=== PATIENT | female | born 1960 | race African-American/Black ===

== ENCOUNTER 2020-07-11 20:29 | Inpatient (IN) | payer OTHER, SELFPAY ==
--- NOTE | 2020-07-11 20:53 | Emergency Department Report ---
ED Altered Mental Status HPI - General Chief Complaint: Altered Mental Status Stated Complaint: DEHYDRATION/POSS KIDNEY INFECTION PUI?: No Time Seen by Provider: 07/11/20 20:46 Source: EMS Mode of arrival: Stretcher Limitations: Altered Mental Status, Physical Limitation - History of Present Illness Initial Comments: Patient is a 60-year-old female that presents emergency room for evaluation for UTI, decreased responsiveness, dehydration. Patient was transferred from a local psychiatric hospital, [facility]. Patient's sitter is at bedside. Patient sitter states that the patient is a little less responsive and is eating less than normal. Patient's sitter states that today she only ate 25% of her meals. Sitter states that the patient possibly has a UTI or dehydration. Sitter states that the patient's vital signs have been stable except for tachycardia at 101-106,, afebrile with a normal temp, blood pressure 148/96, blood sugar 132.. Sitter states that the patient's urine output has decreased. Paperwork accompanied the patient from [facility]. Paperwork and chart reviewed. It appears that on 07/09/2020, the patient was talking and answering questions in Ivor[place]. MD Complaint: altered mental status, confusion, decreased responsiveness -: Gradual Severity: severe Consistency of Symptoms: getting worse - Related Data Allergies Allergy/AdvReac Type Severity Reaction Status Date / Time Unable to Assess Allergy Unverified 07/11/20 21:47 ED Review of Systems ROS: Stated complaint: DEHYDRATION/POSS KIDNEY INFECTION Other details as noted in HPI Comment: Unobtainable due to pts medical conditions ED Past Medical Hx - Past Medical History Previous Medical History?: Yes Hx CVA: Yes Hx Psychiatric Treatment: Yes Additional medical history: A. fib, - Surgical History Past Surgical History?: No - Family History Family history: no significant - Social History Smoking Status: Unknown if ever smoked Substance Use Type: None ED Physical Exam - General Limitations: Altered Mental Status, Physical Limitation General appearance: alert, in no apparent distress - Head Head exam: Present: atraumatic, normocephalic - Eye Eye exam: Present: normal appearance - ENT ENT exam: Present: mucous membranes moist - Neck Neck exam: Present: normal inspection - Respiratory Respiratory exam: Present: normal lung sounds bilaterally. Absent: respiratory distress - Cardiovascular Cardiovascular Exam: Present: regular rate, normal rhythm. Absent: systolic murmur, diastolic murmur, rubs, gallop - GI/Abdominal GI/Abdominal exam: Present: soft, normal bowel sounds - Extremities Exam Extremities exam: Present: normal inspection - Back Exam Back exam: Present: normal inspection - Neurological Exam Neurological exam: Present: alert, altered - Skin Skin exam: Present: warm, dry, intact, normal color. Absent: rash - Assessment Assessment Interval: Baseline - Level of Consciousness 1a. Level of Consciousness: resp stimuli/obtunded - LOC Questions 1b. LOC Questions: aphasic - LOC Command 1c. LOC Commands: performs tasks correctly - Best Gaze 2. Best Gaze: normal - Visual 3. Visual: no visual loss - Facial Palsy 4. Facial Palsy: normal symmetrical movement - Motor Arm 5a. Motor Arm Left: no movement 5b. Motor Arm Right: no movement - Motor Leg 6a. Motor Leg Left: some gravity effort 6b. Motor Leg Right: some gravity effort - Limb Ataxia 7. Limb Ataxia: absent - Sensory 8. Sensory: mild/moderate sensory loss - Best Language 9. Best Language: mute/global aphasia - Dysarthria 10. Dysarthria: mute/anarrthric - Extinction and Inattention 11. Extinction/Inattention: no abnormality - Scoring Total Score: 22 Stroke Severity: Severe Stroke ED Course - Reevaluation(s) Reevaluation #1: Patient is currently oriented x1. Patient is becoming more verbal. Patient is receiving fluids. 07/11/20 21:12 Reevaluation #2: Patient answering more questions. Patient's vital signs are stable. Patient is afebrile. 07/11/20 22:35 Reevaluation #3: Sitter is at bedside. I discussed all results with patient and sitter. I discussed plan of care with patient and sitter. Patient to be admitted to the hospitalist service. 07/11/20 22:50 - Consultations Consultation #1: Hospitalist consulted for admission. Hospitalist to admit patient. 07/11/20 22:50 - Lab Data Result diagrams: 07/11/20 21:17 07/11/20 21:17 Lab Results 07/11/20 07/11/20 07/11/20 Range/Units 21:17 21:17 21:17 WBC 11.7 H (4.5-11.0) K/mm3 RBC 4.17 (3.65-5.03) M/mm3 Hgb 14.4 H (10.1-14.3) gm/dl Hct 40.1 (30.3-42.9) % MCV 96 (79-97) fl MCH 35 H (28-32) pg MCHC 36 H (30-34) % RDW 13.4 (13.2-15.2) % Plt Count 255 (140-440) K/mm3 Lymph % (Auto) 21.6 (13.4-35.0) % [place] % (Auto) 5.7 (0.0-7.3) % Eos % (Auto) 0.3 (0.0-4.3) % Baso % (Auto) 0.3 (0.0-1.8) % Lymph # 2.5 (1.2-5.4) K/mm3 [place] # 0.7 (0.0-0.8) K/mm3 Eos # 0.0 (0.0-0.4) K/mm3 Baso # 0.0 (0.0-0.1) K/mm3 Seg Neutrophils % 72.1 H (40.0-70.0) % Seg Neutrophils # 8.5 H (1.8-7.7) K/mm3 Sodium 142 (137-145) mmol/L Potassium 3.5 L (3.6-5.0) mmol/L Chloride 100.9 (98-107) mmol/L Carbon Dioxide 27 (22-30) mmol/L Anion Gap 18 mmol/L BUN 20 H (7-17) mg/dL Creatinine 0.5 L (0.6-1.2) mg/dL Estimated GFR > 60 ml/min BUN/Creatinine Ratio 40 % Glucose 122 H (65-100) mg/dL Lactic Acid 1.40 (0.7-2.0) mmol/L Calcium 9.5 (8.4-10.2) mg/dL Total Bilirubin 0.70 (0.1-1.2) mg/dL AST 86 H (5-40) units/L ALT 68 H (7-56) units/L Alkaline Phosphatase 60 (35-129) units/L Ammonia (25-60) umol/L Total Creatine Kinase 1998 H (30-135) units/L Troponin T < 0.010 (0.00-0.029) ng/mL Total Protein 7.2 (6.3-8.2) g/dL Albumin 4.1 (3.9-5) g/dL Albumin/Globulin Ratio 1.3 % Urine Color (Yellow) Urine Turbidity (Clear) Urine pH (5.0-7.0) Ur Specific [place] (1.003-1.030) Urine Protein (Negative) mg/dL Urine Glucose (UA) (Negative) mg/dL Urine Ketones (Negative) mg/dL Urine Blood (Negative) Urine Nitrite (Negative) Urine Bilirubin (Negative) Urine Urobilinogen (<2.0) mg/dL Ur Leukocyte Esterase (Negative) Urine WBC (Auto) (0.0-6.0) /HPF Urine RBC (Auto) (0.0-6.0) /HPF U Epithel Cells (Auto) (0-13.0) /HPF Urine Mucus /HPF Salicylates (2.8-20.0) mg/dL Urine Opiates Screen Urine Methadone Screen Acetaminophen (10.0-30.0) ug/mL Ur Barbiturates Screen Ur Phencyclidine Scrn Ur Amphetamines Screen U Benzodiazepines Scrn Urine Cocaine Screen U Marijuana (THC) Screen Drugs of Abuse Note 07/11/20 07/11/20 07/11/20 Range/Units 21:17 21:17 21:17 WBC (4.5-11.0) K/mm3 RBC (3.65-5.03) M/mm3 Hgb (10.1-14.3) gm/dl Hct (30.3-42.9) % MCV (79-97) fl MCH (28-32) pg MCHC (30-34) % RDW (13.2-15.2) % Plt Count (140-440) K/mm3 Lymph % (Auto) (13.4-35.0) % [place] % (Auto) (0.0-7.3) % Eos % (Auto) (0.0-4.3) % Baso % (Auto) (0.0-1.8) % Lymph # (1.2-5.4) K/mm3 [place] # (0.0-0.8) K/mm3 Eos # (0.0-0.4) K/mm3 Baso # (0.0-0.1) K/mm3 Seg Neutrophils % (40.0-70.0) % Seg Neutrophils # (1.8-7.7) K/mm3 Sodium (137-145) mmol/L Potassium (3.6-5.0) mmol/L Chloride (98-107) mmol/L Carbon Dioxide (22-30) mmol/L Anion Gap mmol/L BUN (7-17) mg/dL Creatinine (0.6-1.2) mg/dL Estimated GFR ml/min BUN/Creatinine Ratio % Glucose (65-100) mg/dL Lactic Acid (0.7-2.0) mmol/L Calcium (8.4-10.2) mg/dL Total Bilirubin (0.1-1.2) mg/dL AST (5-40) units/L ALT (7-56) units/L Alkaline Phosphatase (35-129) units/L Ammonia 28.0 (25-60) umol/L Total Creatine Kinase (30-135) units/L Troponin T (0.00-0.029) ng/mL Total Protein (6.3-8.2) g/dL Albumin (3.9-5) g/dL Albumin/Globulin Ratio % Urine Color (Yellow) Urine Turbidity (Clear) Urine pH (5.0-7.0) Ur Specific [place] (1.003-1.030) Urine Protein (Negative) mg/dL Urine Glucose (UA) (Negative) mg/dL Urine Ketones (Negative) mg/dL Urine Blood (Negative) Urine Nitrite (Negative) Urine Bilirubin (Negative) Urine Urobilinogen (<2.0) mg/dL Ur Leukocyte Esterase (Negative) Urine WBC (Auto) (0.0-6.0) /HPF Urine RBC (Auto) (0.0-6.0) /HPF U Epithel Cells (Auto) (0-13.0) /HPF Urine Mucus /HPF Salicylates < 0.3 L (2.8-20.0) mg/dL Urine Opiates Screen Urine Methadone Screen Acetaminophen 5.0 L (10.0-30.0) ug/mL Ur Barbiturates Screen Ur Phencyclidine Scrn Ur Amphetamines Screen U Benzodiazepines Scrn Urine Cocaine Screen U Marijuana (THC) Screen Drugs of Abuse Note 07/11/20 07/11/20 Range/Units Unknown Unknown WBC (4.5-11.0) K/mm3 RBC (3.65-5.03) M/mm3 Hgb (10.1-14.3) gm/dl Hct (30.3-42.9) % MCV (79-97) fl MCH (28-32) pg MCHC (30-34) % RDW (13.2-15.2) % Plt Count (140-440) K/mm3 Lymph % (Auto) (13.4-35.0) % [place] % (Auto) (0.0-7.3) % Eos % (Auto) (0.0-4.3) % Baso % (Auto) (0.0-1.8) % Lymph # (1.2-5.4) K/mm3 [place] # (0.0-0.8) K/mm3 Eos # (0.0-0.4) K/mm3 Baso # (0.0-0.1) K/mm3 Seg Neutrophils % (40.0-70.0) % Seg Neutrophils # (1.8-7.7) K/mm3 Sodium (137-145) mmol/L Potassium (3.6-5.0) mmol/L Chloride (98-107) mmol/L Carbon Dioxide (22-30) mmol/L Anion Gap mmol/L BUN (7-17) mg/dL Creatinine (0.6-1.2) mg/dL Estimated GFR ml/min BUN/Creatinine Ratio % Glucose (65-100) mg/dL Lactic Acid (0.7-2.0) mmol/L Calcium (8.4-10.2) mg/dL Total Bilirubin (0.1-1.2) mg/dL AST (5-40) units/L ALT (7-56) units/L Alkaline Phosphatase (35-129) units/L Ammonia (25-60) umol/L Total Creatine Kinase (30-135) units/L Troponin T (0.00-0.029) ng/mL Total Protein (6.3-8.2) g/dL Albumin (3.9-5) g/dL Albumin/Globulin Ratio % Urine Color Yellow (Yellow) Urine Turbidity Clear (Clear) Urine pH 6.0 (5.0-7.0) Ur Specific [place] 1.023 (1.003-1.030) Urine Protein 30 mg/dl (Negative) mg/dL Urine Glucose (UA) Neg (Negative) mg/dL Urine Ketones Tr (Negative) mg/dL Urine Blood Neg (Negative) Urine Nitrite Neg (Negative) Urine Bilirubin Neg (Negative) Urine Urobilinogen 2.0 (<2.0) mg/dL Ur Leukocyte Esterase Neg (Negative) Urine WBC (Auto) 2.0 (0.0-6.0) /HPF Urine RBC (Auto) 3.0 (0.0-6.0) /HPF U Epithel Cells (Auto) 3.0 (0-13.0) /HPF Urine Mucus 3+ /HPF Salicylates (2.8-20.0) mg/dL Urine Opiates Screen Presumptive negative Urine Methadone Screen Presumptive negative Acetaminophen (10.0-30.0) ug/mL Ur Barbiturates Screen Presumptive negative Ur Phencyclidine Scrn Presumptive negative Ur Amphetamines Screen Presumptive negative U Benzodiazepines Scrn Presumptive negative Urine Cocaine Screen Presumptive negative U Marijuana (THC) Screen Presumptive negative Drugs of Abuse Note Disclamer - EKG Data -: EKG Interpreted by In EKG shows normal: sinus rhythm, axis, intervals, QRS complexes, ST-T waves Rate: normal - Radiology Data Radiology results: report reviewed, image reviewed interpreted by me: Chest x-ray: No acute findings, no pneumonia, no pneumothorax, no foreign body, no osseous findings. CHEST 1 VIEW 07/11/2020 8:29 PM INDICATION / CLINICAL INFORMATION: Altered Mental Status. COMPARISON: None available. FINDINGS: SUPPORT DEVICES: None. HEART / MEDIASTINUM: No significant abnormality. LUNGS / PLEURA: No significant pulmonary or pleural abnormality. 7 mm calcified granuloma in the right midlung. No pneumothorax. ADDITIONAL FINDINGS: No significant additional findings. IMPRESSION: No acute cardiopulmonary abnormality. NONENHANCED CT SCAN OF THE HEAD: INDICATION / CLINICAL INFORMATION: 60 years Female; Altered Mental Status. TECHNIQUE: Routine CT head without contrast. All CT scans at this location are performed using CT dose reduction for ALARA by means of automated exposure control. COMPARISON: None. FINDINGS: BRAIN / INTRACRANIAL CONTENTS: No acute hemorrhage, mass effect, midline shift, hydrocephalus, or acute, large territorial infarct. No chronic infarct or focal atrophy. Normal brain volume and ventricular/sulcal size for age. No significant white matter abnormality. CRANIOCERVICAL JUNCTION: No significant abnormality. ORBITS: No significant abnormality of visualized orbits. SINUSES / MASTOIDS: No significant abnormality of the visualized paranasal sinuses or mastoid air cells. ADDITIONAL FINDINGS: None. IMPRESSION: Normal nonenhanced CT scan of the brain. - Medical Decision Making Patient is a 60-year-old female that presents emergency room with altered mental status, confusion, decreased responsiveness. Patient presented from a local psychiatric facility for medical evaluation. And patient has had decreased appetite and decreased oral intake. Patient also had decreased responsiveness. Patient was [facility] Patient had labs done which shows rhabdomyolysis, dehydration. Patient had a head CT for altered mental status was negative for acute findings. Patient had a chest x-ray which was negative for acute findings. After initial evaluation, the patient was given fluids and antibiotics. Patient's mentation improved slightly with the fluids. Patient admitted to the hospitalist service. - Differential Diagnosis AMS, dehydration, UTI, electrolyte imbalance, sepsis Critical Care Time: Yes Critical care time in (mins) excluding proc time.: 35 Critical care attestation.: If time is entered above; I have spent that time in minutes in the direct care of this critically ill patient, excluding procedure time. Critical Care Time: 35 minutes ED Disposition Clinical Impression: Decreased responsiveness, Confusion, Dehydration Altered mental state Qualifiers: Altered mental status type: unspecified Qualified Code(s): R41.82 - Altered mental status, unspecified Rhabdomyolysis Qualifiers: Rhabdomyolysis type: non-traumatic Qualified Code(s): M62.82 - Rhabdomyolysis Disposition: OP ADMIT IP TO THIS HOSP Is pt being admited?: Yes Does the pt Need Aspirin: No Condition: Critical Time of Disposition: 00:10
[2020-07-11] MEDS ORDERED: SODIUM CHLORIDE 0.9% 1000 ML 1,000 ML IV ONE ×2 (20:55→20:58)
[2020-07-11] MEDS ORDERED: CEFEPIME/NS 2 GM/100 ML 2 GM/100 ML BAG IV ONE (20:57)
[2020-07-11 21:37] LABS: Basophils % (Auto) 0.3 % (0.0-1.8); Eosinophils % (Auto) 0.3 % (0.0-4.3); Lymphocytes # (Auto) 2.5 K/mm3 (1.2-5.4); Lymphocytes % (Auto) 21.6 % (13.4-35.0); Mean Corpuscular HGB Conc 36 % (30-34); Mean Corpuscular Volume 96 fl (79-97); Monocytes # (Auto) 0.7 K/mm3 (0.0-0.8); Monocytes % (Auto) 5.7 % (0.0-7.3); Platelet Count 255 K/mm3 (140-440); Red Blood Count 4.17 M/mm3 (3.65-5.03); Red Cell Distribution Width 13.4 % (13.2-15.2)
--- NOTE | 2020-07-11 21:39 | XRay Report ---
CHEST 1 VIEW 07/11/2020 8:29 PM INDICATION / CLINICAL INFORMATION: Altered Mental Status. COMPARISON: None available. FINDINGS: SUPPORT DEVICES: None. HEART / MEDIASTINUM: No significant abnormality. LUNGS / PLEURA: No significant pulmonary or pleural abnormality. 7 mm calcified granuloma in the righ t midlung. No pneumothorax. ADDITIONAL FINDINGS: No significant additional findings. IMPRESSION: No acute cardiopulmonary abnormality. Signer Name: Juancarlos Abebe MD Signed: 07/11/2020 9:35 PM Workstation Name: [email or web address]
[2020-07-11 21:41] LABS: Hematocrit 40.1 % (30.3-42.9); Hemoglobin 14.4 gm/dl (10.1-14.3)
--- NOTE | 2020-07-11 21:59 | Cat Scan Report ---
NONENHANCED CT SCAN OF THE HEAD: INDICATION / CLINICAL INFORMATION: 60 years Female; Altered Mental Status. TECHNIQUE: Routine CT head without contrast. All CT scans at this location are performed using CT dos e reduction for ALARA by means of automated exposure control. COMPARISON: None. FINDINGS: BRAIN / INTRACRANIAL CONTENTS: No acute hemorrhage, mass effect, midline shift, hydrocephalus, or ac [place], large territorial infarct. No chronic infarct or focal atrophy. Normal brain volume and ventricu lar/sulcal size for age. No significant white matter abnormality. CRANIOCERVICAL JUNCTION: No significant abnormality. ORBITS: No significant abnormality of visualized orbits. SINUSES / MASTOIDS: No significant abnormality of the visualized paranasal sinuses or mastoid air odessa ls. ADDITIONAL FINDINGS: None. IMPRESSION: Normal nonenhanced CT scan of the brain. Signer Name: Femi Ramirez MD Signed: 07/11/2020 9:54 PM Workstation Name: [id number]
[2020-07-11 22:08] LABS: Alanine Aminotransferase 68 units/L (7-56); Albumin 4.1 g/dL (3.9-5); Blood Urea Nitrogen 20 mg/dL (7-17); Calcium 9.5 mg/dL (8.4-10.2); Hemolysis Index 10
[2020-07-11 22:15] LABS: BUN/Creatinine Ratio 40
[2020-07-11 23:35] LABS: Bilirubin,Urine NEG (Negative); Blood,Urine NEG (Negative); Color,Urine Yellow (Yellow); Mucus,Urine 3+ /HPF
[2020-07-11 23:37] LABS: Amphetamine Screen,Urine PRESUMPTIVE NEGATIVE; Benzodiazepines Screen,Urine PRESUMPTIVE NEGATIVE; Cannabinoid Screen,Urine PRESUMPTIVE NEGATIVE; Cocaine Screen,Urine PRESUMPTIVE NEGATIVE; Methadone Screen,Urine PRESUMPTIVE NEGATIVE; Opiate Screen,Urine PRESUMPTIVE NEGATIVE
[2020-07-12] MEDS ORDERED: HEPARIN 5,000 UNIT/1 ML VIAL SUB-Q SCH (01:00)
[2020-07-12] MEDS ORDERED: ONDANSETRON 4 MG/2 ML INJ IV PRN (01:06)
[2020-07-12] MEDS ORDERED: HEPARIN 5,000 UNIT/1 ML VIAL ONE (01:27)
[2020-07-12] MEDS: SODIUM CHLORIDE 0.9% 1000 ML 1,000 ML IV SCH ×3 (02:25→22:07)
--- NOTE | 2020-07-12 05:11 | History and Physical Report ---
History of Present Illness Date of examination: 07/12/20 Date of admission: 07/12/20 00:09 Chief complaint: Chief complaint is altered mental status History of present illness: History of presenting illness, patient is a 60-year-old female brought from geriatric unit of [facility] because of altered mental status and decreased oral intake. There was no history of fever or chills, and there was no history of dysuria, shortness of breath, chest pain, nausea or vomiting. Past History Past Medical History: atrial fib, stroke (PSYCHIATRY), other Past Surgical History: No surgical history Social history: no significant social history Family history: no significant family history Medications and Allergies Allergies Allergy/AdvReac Type Severity Reaction Status Date / Time Unable to Assess Allergy Unverified 07/11/20 21:47 Active Meds: Active Medications Acetaminophen (Tylenol) 650 mg [place] Q4H PRN PRN Reason: Fever >101 Heparin Sodium (Porcine) (Heparin) 5,000 unit SUB-Q Q8HR KEITH Last Admin: 07/12/20 01:28 Dose: 5,000 unit Documented by: Sodium Chloride (Nacl 0.9% 1000 Ml) 1,000 mls @ 100 mls/hr IV DIRECT KEITH Last Admin: 07/12/20 02:25 Dose: 100 mls/hr Documented by: Ondansetron HCl (Zofran) 4 mg IV Q8H PRN PRN Reason: Nausea And Vomiting Review of Systems Constitutional: weakness, lethargy, no weight loss, no weight gain, no fever, no chills, no sweats Eyes: bilateral: other (NO BILATERAL EYE SYMPTOM) Ears, nose, mouth and throat: no ear pain, no ear discharge Breasts: deferred Cardiovascular: no chest pain, no orthopnea, no palpitations, no rapid/irregular heart beat, no syncope, no lightheadedness, no shortness of breath, no claudication Respiratory: no cough, no excessive sputum, no hemoptysis, no shortness of breath, no dyspnea on exertion, no congestion, no wheezing, no pleurisy, no pain, no pain on inspiration Gastrointestinal: no abdominal pain, no nausea, no vomiting, no diarrhea, no constipation, no change in bowel habits, no coffee ground emesis, no melena, no hematochezia, no loss of appetite, no early satiety, no heartburn, no indigestion, no excessive gas Genitourinary Female: no Menstruation: postmenopausal Rectal: no pain Musculoskeletal: no neck stiffness, no neck pain, no myalgias Integumentary: no rash, no pruritis, no redness, no sores, no jaundice, no darkening of skin, no dryness, no color changes Neurological: weakness, change in mentation, confusion, no paralysis, no parathesias, no numbness, no tingling, no seizures, no syncope, no tremors, no vertigo, no headaches, no migraines, no convulsions, no aphasia Psychiatric: no anxiety, no memory loss, no insomnia, no hypersomnia, no change in appetite, no change in libido, no suicidal ideation, no hopelessness, no anhedonia Endocrine: no cold intolerance, no heat intolerance, no polyphagia, no excessive thirst, no polydipsia, no polyuria, no nocturia, no palpatations Hematologic/Lymphatic: no easy bruising, no easy bleeding, no lymphadenopathy Allergic/Immunologic: no persistent infections Exam - Constitutional Vitals: Temp Pulse Resp BP Pulse Ox 98.7 F 81 16 112/46 97 07/12/20 03:55 07/12/20 03:55 07/12/20 03:55 07/12/20 03:55 07/12/20 03:55 General appearance: Present: no acute distress - Neck Neck: Present: supple, normal ROM - Respiratory Respiratory effort: normal - Cardiovascular Rhythm: regular Heart Sounds: Present: S1 & S2. Absent: gallop, systolic murmur, diastolic murmur, click - Extremities Extremities: no ischemia, No edema Peripheral Pulses: within normal limits - Abdominal General gastrointestinal: Present: soft, non-tender. Absent: tender, non- distended, distended, rigid, hepatomegaly, splenomegaly Female genitourinary: Present: deferred - Rectal Rectal Exam: deferred - Integumentary Integumentary: Present: clear, warm, dry. Absent: jaundice, rash, clammy - Musculoskeletal Musculoskeletal: strength equal bilaterally HEART Score - HEART Score Risk factors: 1-2 risk factors Troponin: Troponin T < 0.010 ng/mL (0.00-0.029) 07/11/20 21:17 Troponin: < normal limit - Critical Actions Critical Actions: 0-3 pts:0.9-1.7%risk of adverse cardiac event.Candidate for discharge Results - Labs CBC & Chem 7: 07/11/20 21:17 07/11/20 21:17 Labs: Laboratory Last Values WBC 11.7 K/mm3 (4.5-11.0) H 07/11/20 21:17 RBC 4.17 M/mm3 (3.65-5.03) 07/11/20 21:17 Hgb 14.4 gm/dl (10.1-14.3) H 07/11/20 21:17 Hct 40.1 % (30.3-42.9) 07/11/20 21:17 MCV 96 fl (79-97) 07/11/20 21:17 MCH 35 pg (28-32) H 07/11/20 21:17 MCHC 36 % (30-34) H 07/11/20 21:17 RDW 13.4 % (13.2-15.2) 07/11/20 21:17 Plt Count 255 K/mm3 (140-440) 07/11/20 21:17 Lymph % (Auto) 21.6 % (13.4-35.0) 07/11/20 21:17 [place] % (Auto) 5.7 % (0.0-7.3) 07/11/20 21:17 Eos % (Auto) 0.3 % (0.0-4.3) 07/11/20 21:17 Baso % (Auto) 0.3 % (0.0-1.8) 07/11/20 21:17 Lymph # 2.5 K/mm3 (1.2-5.4) 07/11/20 21:17 [place] # 0.7 K/mm3 (0.0-0.8) 07/11/20 21:17 Eos # 0.0 K/mm3 (0.0-0.4) 07/11/20 21:17 Baso # 0.0 K/mm3 (0.0-0.1) 07/11/20 21:17 Seg Neutrophils % 72.1 % (40.0-70.0) H 07/11/20 21:17 Seg Neutrophils # 8.5 K/mm3 (1.8-7.7) H 07/11/20 21:17 Sodium 142 mmol/L (137-145) 07/11/20 21:17 Potassium 3.5 mmol/L (3.6-5.0) L 07/11/20 21:17 Chloride 100.9 mmol/L (98-107) 07/11/20 21:17 Carbon Dioxide 27 mmol/L (22-30) 07/11/20 21:17 Anion Gap 18 mmol/L 07/11/20 21:17 BUN 20 mg/dL (7-17) H 07/11/20 21:17 Creatinine 0.5 mg/dL (0.6-1.2) L 07/11/20 21:17 Estimated GFR > 60 ml/min 07/11/20 21:17 BUN/Creatinine Ratio 40 % 07/11/20 21:17 Glucose 122 mg/dL (65-100) H 07/11/20 21:17 Lactic Acid 1.50 mmol/L (0.7-2.0) 07/12/20 00:04 Calcium 9.5 mg/dL (8.4-10.2) 07/11/20 21:17 Total Bilirubin 0.70 mg/dL (0.1-1.2) 07/11/20 21:17 AST 86 units/L (5-40) H 07/11/20 21:17 ALT 68 units/L (7-56) H 07/11/20 21:17 Alkaline Phosphatase 60 units/L (35-129) 07/11/20 21:17 Ammonia 28.0 umol/L (25-60) 07/11/20 21:17 Total Creatine Kinase 1998 units/L (30-135) H 07/11/20 21:17 Troponin T < 0.010 ng/mL (0.00-0.029) 07/11/20 21:17 Total Protein 7.2 g/dL (6.3-8.2) 07/11/20 21:17 Albumin 4.1 g/dL (3.9-5) 07/11/20 21:17 Albumin/Globulin Ratio 1.3 % 07/11/20 21:17 Urine Color Yellow (Yellow) 07/11/20 Unknown Urine Turbidity Clear (Clear) 07/11/20 Unknown Urine pH 6.0 (5.0-7.0) 07/11/20 Unknown Ur Specific [place] 1.023 (1.003-1.030) 07/11/20 Unknown Urine Protein 30 mg/dl mg/dL (Negative) 07/11/20 Unknown Urine Glucose (UA) Neg mg/dL (Negative) 07/11/20 Unknown Urine Ketones Tr mg/dL (Negative) 07/11/20 Unknown Urine Blood Neg (Negative) 07/11/20 Unknown Urine Nitrite Neg (Negative) 07/11/20 Unknown Urine Bilirubin Neg (Negative) 07/11/20 Unknown Urine Urobilinogen 2.0 mg/dL (<2.0) 07/11/20 Unknown Ur Leukocyte Esterase Neg (Negative) 07/11/20 Unknown Urine WBC (Auto) 2.0 /HPF (0.0-6.0) 07/11/20 Unknown Urine RBC (Auto) 3.0 /HPF (0.0-6.0) 07/11/20 Unknown U Epithel Cells (Auto) 3.0 /HPF (0-13.0) 07/11/20 Unknown Urine Mucus 3+ /HPF 07/11/20 Unknown Salicylates < 0.3 mg/dL (2.8-20.0) L 07/11/20 21:17 Urine Opiates Screen Presumptive negative 07/11/20 Unknown Urine Methadone Screen Presumptive negative 07/11/20 Unknown Acetaminophen 5.0 ug/mL (10.0-30.0) L 07/11/20 21:17 Ur Barbiturates Screen Presumptive negative 07/11/20 Unknown Ur Phencyclidine Scrn Presumptive negative 07/11/20 Unknown Ur Amphetamines Screen Presumptive negative 07/11/20 Unknown U Benzodiazepines Scrn Presumptive negative 07/11/20 Unknown Urine Cocaine Screen Presumptive negative 07/11/20 Unknown U Marijuana (THC) Screen Presumptive negative 07/11/20 Unknown Drugs of Abuse Note Disclamer 07/11/20 Unknown Microbiology: Microbiology 07/11/20 21:24 Peripheral/Venous Blood Culture - Preliminary Culture in Progress 07/11/20 21:17 Peripheral/Venous Blood Culture - Preliminary Culture in Progress Led[place]ma/IV: Voiding Method Indwelling Catheter IV Catheter Type [Right Peripheral IV Forearm] IV Catheter Type [Left Hand] INT / Saline Lock Assessment and Plan - Patient Problems (1) Altered mental state Current Visit: Yes Status: Acute Qualifiers: Altered mental status type: unspecified Qualified Code(s): R41.82 - Altered mental status, unspecified Plan to address problem: OXYGEN BY NASAL CANNULAR (2) Dehydration Current Visit: Yes Status: Acute Plan to address problem: 1. I.V NORMAL SALINE FLUID (3) Rhabdomyolysis Current Visit: Yes Status: Acute Qualifiers: Rhabdomyolysis type: non-traumatic Qualified Code(s): M62.82 - Rhabdomyolysis Plan to address problem: 1. SERIAL CPK 2. I.V NORMAL SALINE
[2020-07-12 07:56] LABS: Creatine Kinase MB 14.8 ng/mL (0.0-4.0)
[2020-07-12] MEDS: HEPARIN 5,000 UNIT/1 ML VIAL SUB-Q SCH ×2 (09:22→19:02)
--- NOTE | 2020-07-12 13:39 | Progress Note ---
Assessment and Plan Assessment and plan: --Acute metabolic encephalopathy /altered mental state Current Visit: Yes Status: Acute Multifactorial , dehydration , rhabdomyolysis neurochecks, supportive care Treat the underlying cause --Severe dehydration Current Visit: Yes Status: Acute Plan to address problem: Reduce IV hydration Monitor renal function Input output monitoring Encourage plenty oral fluids -- Rhabdomyolysis- Current Visit: Yes Status: Acute Plan to address problem: Preserved renal function, reduce IV hydration Input output monitoring, monitor CK levels --transaminitis:- Current Visit: Yes Status: Acute Plan to address problem: Probably secondary to rhabdo Possible alcoholic liver disease Trend transaminases --DVT prophylaxis; Heparin subcu Closely monitor the patient and adjust management as needed Plan of care reviewed with the patient's nurse History Interval history: I have seen and examined the patient at the bedside this afternoon Patient's chart and current medications tests and vital signs reviewed Patient is sleeping easily awakens, minimally communicative Vital signs noted No new overnight events reported by the nursing Hospitalist Physical - Constitutional Vitals: Temp Pulse Resp BP Pulse Ox 98.1 F 95 H 20 94/39 98 07/12/20 11:34 07/12/20 11:34 07/12/20 11:34 07/12/20 11:34 07/12/20 11:34 General appearance: Present: no acute distress, well-nourished, other (Sleeping easily awakens) - EENT Eyes: Present: PERRL, EOM intact - Neck Neck: Present: supple, normal ROM - Respiratory Respiratory effort: normal Respiratory: bilateral: diminished, negative: rales, rhonchi, wheezing - Cardiovascular Rhythm: regular Heart Sounds: Present: S1 & S2 - Extremities Extremities: no ischemia, No edema - Abdominal General gastrointestinal: soft, non-tender, non-distended, distended, normal bowel sounds - Integumentary Integumentary: Present: clear, warm - Psychiatric Psychiatric: other (Minimally communicative) - Neurologic Neurologic: moves all extremities HEART Score - HEART Score Risk factors: 1-2 risk factors Troponin: Troponin T < 0.010 ng/mL (0.00-0.029) 07/11/20 21:17 Troponin: < normal limit - Critical Actions Critical Actions: 0-3 pts:0.9-1.7%risk of adverse cardiac event.Candidate for discharge Results - Labs CBC & Chem 7: 07/11/20 21:17 07/11/20 21:17 Labs: Laboratory Last Values WBC 11.7 K/mm3 (4.5-11.0) H 07/11/20 21:17 RBC 4.17 M/mm3 (3.65-5.03) 07/11/20 21:17 Hgb 14.4 gm/dl (10.1-14.3) H 07/11/20 21:17 Hct 40.1 % (30.3-42.9) 07/11/20 21:17 MCV 96 fl (79-97) 07/11/20 21:17 MCH 35 pg (28-32) H 07/11/20 21:17 MCHC 36 % (30-34) H 07/11/20 21:17 RDW 13.4 % (13.2-15.2) 07/11/20 21:17 Plt Count 255 K/mm3 (140-440) 07/11/20 21:17 Lymph % (Auto) 21.6 % (13.4-35.0) 07/11/20 21:17 [place] % (Auto) 5.7 % (0.0-7.3) 07/11/20 21:17 Eos % (Auto) 0.3 % (0.0-4.3) 07/11/20 21:17 Baso % (Auto) 0.3 % (0.0-1.8) 07/11/20 21:17 Lymph # 2.5 K/mm3 (1.2-5.4) 07/11/20 21:17 [place] # 0.7 K/mm3 (0.0-0.8) 07/11/20 21:17 Eos # 0.0 K/mm3 (0.0-0.4) 07/11/20 21:17 Baso # 0.0 K/mm3 (0.0-0.1) 07/11/20 21:17 Seg Neutrophils % 72.1 % (40.0-70.0) H 07/11/20 21:17 Seg Neutrophils # 8.5 K/mm3 (1.8-7.7) H 07/11/20 21:17 Sodium 142 mmol/L (137-145) 07/11/20 21:17 Potassium 3.5 mmol/L (3.6-5.0) L 07/11/20 21:17 Chloride 100.9 mmol/L (98-107) 07/11/20 21:17 Carbon Dioxide 27 mmol/L (22-30) 07/11/20 21:17 Anion Gap 18 mmol/L 07/11/20 21:17 BUN 20 mg/dL (7-17) H 07/11/20 21:17 Creatinine 0.5 mg/dL (0.6-1.2) L 07/11/20 21:17 Estimated GFR > 60 ml/min 07/11/20 21:17 BUN/Creatinine Ratio 40 % 07/11/20 21:17 Glucose 122 mg/dL (65-100) H 07/11/20 21:17 Lactic Acid 1.50 mmol/L (0.7-2.0) 07/12/20 00:04 Calcium 9.5 mg/dL (8.4-10.2) 07/11/20 21:17 Total Bilirubin 0.70 mg/dL (0.1-1.2) 07/11/20 21:17 AST 86 units/L (5-40) H 07/11/20 21:17 ALT 68 units/L (7-56) H 07/11/20 21:17 Alkaline Phosphatase 60 units/L (35-129) 07/11/20 21:17 Ammonia 28.0 umol/L (25-60) 07/11/20 21:17 Total Creatine Kinase 1888 units/L (30-135) H 07/12/20 06:26 CK-MB (CK-2) 14.8 ng/mL (0.0-4.0) H 07/12/20 06:26 CK-MB (CK-2) Rel Index 0.7 (0-4) 07/12/20 06:26 Troponin T < 0.010 ng/mL (0.00-0.029) 07/11/20 21:17 Total Protein 7.2 g/dL (6.3-8.2) 07/11/20 21:17 Albumin 4.1 g/dL (3.9-5) 07/11/20 21:17 Albumin/Globulin Ratio 1.3 % 07/11/20 21:17 Urine Color Yellow (Yellow) 07/11/20 Unknown Urine Turbidity Clear (Clear) 07/11/20 Unknown Urine pH 6.0 (5.0-7.0) 07/11/20 Unknown Ur Specific [place] 1.023 (1.003-1.030) 07/11/20 Unknown Urine Protein 30 mg/dl mg/dL (Negative) 07/11/20 Unknown Urine Glucose (UA) Neg mg/dL (Negative) 07/11/20 Unknown Urine Ketones Tr mg/dL (Negative) 07/11/20 Unknown Urine Blood Neg (Negative) 07/11/20 Unknown Urine Nitrite Neg (Negative) 07/11/20 Unknown Urine Bilirubin Neg (Negative) 07/11/20 Unknown Urine Urobilinogen 2.0 mg/dL (<2.0) 07/11/20 Unknown Ur Leukocyte Esterase Neg (Negative) 07/11/20 Unknown Urine WBC (Auto) 2.0 /HPF (0.0-6.0) 07/11/20 Unknown Urine RBC (Auto) 3.0 /HPF (0.0-6.0) 07/11/20 Unknown U Epithel Cells (Auto) 3.0 /HPF (0-13.0) 07/11/20 Unknown Urine Mucus 3+ /HPF 07/11/20 Unknown Salicylates < 0.3 mg/dL (2.8-20.0) L 07/11/20 21:17 Urine Opiates Screen Presumptive negative 07/11/20 Unknown Urine Methadone Screen Presumptive negative 07/11/20 Unknown Acetaminophen 5.0 ug/mL (10.0-30.0) L 07/11/20 21:17 Ur Barbiturates Screen Presumptive negative 07/11/20 Unknown Ur Phencyclidine Scrn Presumptive negative 07/11/20 Unknown Ur Amphetamines Screen Presumptive negative 07/11/20 Unknown U Benzodiazepines Scrn Presumptive negative 07/11/20 Unknown Urine Cocaine Screen Presumptive negative 07/11/20 Unknown U Marijuana (THC) Screen Presumptive negative 07/11/20 Unknown Drugs of Abuse Note Disclamer 07/11/20 Unknown Microbiology: Microbiology 07/11/20 Unknown Urine,Clean Catch Urine Culture - Preliminary NO GROWTH AFTER 24 HOURS 07/11/20 21:24 Peripheral/Venous Blood Culture - Preliminary Culture in Progress 07/11/20 21:17 Peripheral/Venous Blood Culture - Preliminary Culture in Progress Ledesma/IV: Voiding Method Indwelling Catheter IV Catheter Type [Right Peripheral IV Forearm] IV Catheter Type [Left Hand] INT / Saline Lock Active Medications - Current Medications Current Medications: Generic Name Dose Route Start Last Admin Trade Name Freq PRN Reason Stop Dose Admin Acetaminophen 650 mg 07/12/20 01:05 Tylenol DE Q4H PRN Fever >101 Heparin Sodium (Porcine) 5,000 unit 07/12/20 10:00 07/12/20 09:22 Heparin SUB-Q 5,000 unit Q8H KEITH Administration Sodium Chloride 1,000 mls @ 100 mls/hr 07/12/20 01:00 07/12/20 11:25 Nacl 0.9% 1000 Ml IV 100 mls/hr DIRECT KEITH Administration Ondansetron HCl 4 mg 07/12/20 01:06 Zofran IV Q8H PRN Nausea And Vomiting Nutrition/Malnutrition Assess - Dietary Evaluation Nutrition/Malnutrition Findings: Nutrition Notes Start: 07/12/20 11:40 Freq: Status: Active Protocol: Document 07/12/20 11:41 [email or web address] (Rec: 07/12/20 12:03 [email or web address]) Co-Sign 07/12/20 11:41 LM Nutrition Notes Need for Assessment generated from: bomb loader,MST Initial or Follow up Assessment Other Pertinent Diagnosis AMS, Rhabdomyolysis, dehydration, Hx of stroke Current Diet Low Sodium Diet Labs/Tests 07/11 K 3.5 BUN 20 Cr 0.5 Glucose 122 Pertinent Medications Reviewed Height 5 ft Weight 55 kg [place] Body Weight (kg) 45.45 BMI 23.6 Intake Prior to Admission Poor Weight Status Appropriate Subjective/Other Information Pt screened for MST score. Pt is nonverbal. Spoke with RN, RN tried to feed the pt and pt would not open her mouth to eat or drink. 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 Is patient on ventilator? No Is Patient Ambulatory and/or Out of Bed No REE-([facility]-confined to bed) [phone] Calculation Used for Recommendations [facility] Additional Notes Protein Needs 44-55g/kg (.8-1g /kg) Fluid Needs: 1ml/kcal Nutrition Intervention Change Diet Order: Continue Add Supplement/Snack (indicate name/kcal Ensure Enlive BID /protein ) Provides kCal: 700 Provides Protein (gm) 40 Goal #1 meet at least 75% of energy and protein needs Anticipated Discharge Needs: cardiac diet Follow-Up By: 07/16/20 Additional Comments F/U for intakes & ONS tolerance
[2020-07-12 16:20] LABS: Creatine Kinase MB 9.2 ng/mL (0.0-4.0)
[2020-07-12] MEDS: ACETAMINOPHEN 650 MG RECT SUPP PR PRN (22:08)
[2020-07-13] MEDS: HEPARIN 5,000 UNIT/1 ML VIAL SUB-Q SCH ×3 (03:37→17:50)
[2020-07-13] MEDS: SODIUM CHLORIDE 0.9% 1000 ML 1,000 ML IV SCH ×2 (08:27→17:51)
[2020-07-13] MEDS ORDERED: FUROSEMIDE 40 MG/4 ML INJ IV SCH (09:00)
--- NOTE | 2020-07-13 09:07 | Progress Note ---
Assessment and Plan Assessment and plan: --Severe hypokalemia: K2.8, replenish per protocol with IV and oral KCl Follow electrolytes Magnesium within normal limits --Schizo affective disorder; Current Visit: Yes Status: Acute . Plan to address problem: Psych evaluation and recommendations noted and appreciated. Management per psych Recommend inpatient psych placement -- Rhabdomyolysis- Current Visit: Yes Status: Acute Plan to address problem: Preserved renal function, reduce IV hydration Input output monitoring, monitor CK levels CK levels trending down [id number] 500 mL normal saline bolus followed by IV Lasix Closely monitor --Acute metabolic encephalopathy /altered mental state Current Visit: Yes Status: Acute Multifactorial , dehydration , rhabdomyolysis Patient came from [place] , psych consult neurochecks, supportive care Treat the underlying cause --Severe dehydration Current Visit: Yes Status: Acute . Plan to address problem: IV hydration Monitor renal function Input output monitoring Encourage plenty oral fluids --transaminitis:- Current Visit: Yes Status: Acute Plan to address problem: Probably secondary to rhabdo Possible alcoholic liver disease Trend transaminases --DVT prophylaxis; Heparin subcu Closely monitor the patient and adjust management as needed Plan of care reviewed with the patient's nurse Psych recommended inpatient psych placement once medically stable History Interval history: I have seen and examined the patient at the bedside Patient's chart and medications reviewed Patient is hallucinating talking to herself looking at the ceiling Not in acute distress CK levels trending down Vital signs noted Hospitalist Physical - Constitutional Vitals: Temp Pulse Resp BP Pulse Ox 97.9 F 75 18 116/49 98 07/13/20 07:07/13/20 07:07/13/20 07:07/13/20 07:07/13/20 08:30 General appearance: Present: no acute distress, well-nourished, other (Hallucinating) - EENT Eyes: Present: PERRL, EOM intact - Neck Neck: Present: supple, normal ROM - Respiratory Respiratory effort: normal Respiratory: bilateral: diminished, negative: rales, rhonchi, wheezing - Cardiovascular Rhythm: regular Heart Sounds: Present: S1 & S2 - Extremities Extremities: no ischemia, No edema - Abdominal General gastrointestinal: soft, non-tender, non-distended, normal bowel sounds - Integumentary Integumentary: Present: clear, warm - Psychiatric Psychiatric: other (Confused, hallucinating) - Neurologic Neurologic: moves all extremities HEART Score - HEART Score Risk factors: 1-2 risk factors Troponin: Troponin T < 0.010 ng/mL (0.00-0.029) 07/11/20 21:17 Troponin: < normal limit - Critical Actions Critical Actions: 0-3 pts:0.9-1.7%risk of adverse cardiac event.Candidate for discharge Results - Labs CBC & Chem 7: 07/11/20 21:17 07/13/20 09:33 Labs: Laboratory Last Values WBC 11.7 K/mm3 (4.5-11.0) H 07/11/20 21:17 RBC 4.17 M/mm3 (3.65-5.03) 07/11/20 21:17 Hgb 14.4 gm/dl (10.1-14.3) H 07/11/20 21:17 Hct 40.1 % (30.3-42.9) 07/11/20 21:17 MCV 96 fl (79-97) 07/11/20 21:17 MCH 35 pg (28-32) H 07/11/20 21:17 MCHC 36 % (30-34) H 07/11/20 21:17 RDW 13.4 % (13.2-15.2) 07/11/20 21:17 Plt Count 255 K/mm3 (140-440) 07/11/20 21:17 Lymph % (Auto) 21.6 % (13.4-35.0) 07/11/20 21:17 [place] % (Auto) 5.7 % (0.0-7.3) 07/11/20 21:17 Eos % (Auto) 0.3 % (0.0-4.3) 07/11/20 21:17 Baso % (Auto) 0.3 % (0.0-1.8) 07/11/20 21:17 Lymph # 2.5 K/mm3 (1.2-5.4) 07/11/20 21:17 [place] # 0.7 K/mm3 (0.0-0.8) 07/11/20 21:17 Eos # 0.0 K/mm3 (0.0-0.4) 07/11/20 21:17 Baso # 0.0 K/mm3 (0.0-0.1) 07/11/20 21:17 Seg Neutrophils % 72.1 % (40.0-70.0) H 07/11/20 21:17 Seg Neutrophils # 8.5 K/mm3 (1.8-7.7) H 07/11/20 21:17 Sodium 142 mmol/L (137-145) 07/11/20 21:17 Potassium 3.5 mmol/L (3.6-5.0) L 07/11/20 21:17 Chloride 100.9 mmol/L (98-107) 07/11/20 21:17 Carbon Dioxide 27 mmol/L (22-30) 07/11/20 21:17 Anion Gap 18 mmol/L 07/11/20 21:17 BUN 20 mg/dL (7-17) H 07/11/20 21:17 Creatinine 0.5 mg/dL (0.6-1.2) L 07/11/20 21:17 Estimated GFR > 60 ml/min 07/11/20 21:17 BUN/Creatinine Ratio 40 % 07/11/20 21:17 Glucose 122 mg/dL (65-100) H 07/11/20 21:17 Lactic Acid 1.50 mmol/L (0.7-2.0) 07/12/20 00:04 Calcium 9.5 mg/dL (8.4-10.2) 07/11/20 21:17 Total Bilirubin 0.70 mg/dL (0.1-1.2) 07/11/20 21:17 AST 86 units/L (5-40) H 07/11/20 21:17 ALT 68 units/L (7-56) H 07/11/20 21:17 Alkaline Phosphatase 60 units/L (35-129) 07/11/20 21:17 Ammonia 28.0 umol/L (25-60) 07/11/20 21:17 Total Creatine Kinase 1852 units/L (30-135) H 07/12/20 15:13 CK-MB (CK-2) 9.2 ng/mL (0.0-4.0) H 07/12/20 15:13 CK-MB (CK-2) Rel Index 0.4 (0-4) 07/12/20 15:13 Troponin T < 0.010 ng/mL (0.00-0.029) 07/11/20 21:17 Total Protein 7.2 g/dL (6.3-8.2) 07/11/20 21:17 Albumin 4.1 g/dL (3.9-5) 07/11/20 21:17 Albumin/Globulin Ratio 1.3 % 07/11/20 21:17 Urine Color Yellow (Yellow) 07/11/20 Unknown Urine Turbidity Clear (Clear) 07/11/20 Unknown Urine pH 6.0 (5.0-7.0) 07/11/20 Unknown Ur Specific [place] 1.023 (1.003-1.030) 07/11/20 Unknown Urine Protein 30 mg/dl mg/dL (Negative) 07/11/20 Unknown Urine Glucose (UA) Neg mg/dL (Negative) 07/11/20 Unknown Urine Ketones Tr mg/dL (Negative) 07/11/20 Unknown Urine Blood Neg (Negative) 07/11/20 Unknown Urine Nitrite Neg (Negative) 07/11/20 Unknown Urine Bilirubin Neg (Negative) 07/11/20 Unknown Urine Urobilinogen 2.0 mg/dL (<2.0) 07/11/20 Unknown Ur Leukocyte Esterase Neg (Negative) 07/11/20 Unknown Urine WBC (Auto) 2.0 /HPF (0.0-6.0) 07/11/20 Unknown Urine RBC (Auto) 3.0 /HPF (0.0-6.0) 07/11/20 Unknown U Epithel Cells (Auto) 3.0 /HPF (0-13.0) 07/11/20 Unknown Urine Mucus 3+ /HPF 07/11/20 Unknown Salicylates < 0.3 mg/dL (2.8-20.0) L 07/11/20 21:17 Urine Opiates Screen Presumptive negative 07/11/20 Unknown Urine Methadone Screen Presumptive negative 07/11/20 Unknown Acetaminophen 5.0 ug/mL (10.0-30.0) L 07/11/20 21:17 Ur Barbiturates Screen Presumptive negative 07/11/20 Unknown Ur Phencyclidine Scrn Presumptive negative 07/11/20 Unknown Ur Amphetamines Screen Presumptive negative 07/11/20 Unknown U Benzodiazepines Scrn Presumptive negative 07/11/20 Unknown Urine Cocaine Screen Presumptive negative 07/11/20 Unknown U Marijuana (THC) Screen Presumptive negative 07/11/20 Unknown Drugs of Abuse Note Disclamer 07/11/20 Unknown Microbiology: Microbiology 07/11/20 21:24 Peripheral/Venous Blood Culture - Preliminary NO GROWTH AFTER 24 HOURS 07/11/20 21:17 Peripheral/Venous Blood Culture - Preliminary NO GROWTH AFTER 24 HOURS 07/11/20 Unknown Urine,Clean Catch Urine Culture - Preliminary NO GROWTH AFTER 24 HOURS Ledesma/IV: Voiding Method Diaper IV Catheter Type [Right Peripheral IV Forearm] IV Catheter Type [Left Hand] INT / Saline Lock Active Medications - Current Medications Current Medications: Generic Name Dose Route Start Last Admin Trade Name Freq PRN Reason Stop Dose Admin Acetaminophen 650 mg 07/12/20 01:05 07/12/20 22:08 Tylenol [place] 650 mg Q4H PRN Administration Fever >101 Furosemide 40 mg 07/13/20 09:00 Lasix IV 07/13/20 11:00 ONCE KEITH Heparin Sodium (Porcine) 5,000 unit 07/12/20 10:00 07/13/20 03:37 Heparin SUB-Q 5,000 unit Q8H KEITH Administration Sodium Chloride 1,000 mls @ 100 mls/hr 07/12/20 01:00 07/13/20 08:27 Nacl 0.9% 1000 Ml IV 100 mls/hr DIRECT KEITH Administration Sodium Chloride 500 mls @ 999 mls/hr 07/13/20 09:00 Nacl 0.9% 500 Ml IV 07/13/20 09:30 ONCE ONE Ondansetron HCl 4 mg 07/12/20 01:06 Zofran IV Q8H PRN Nausea And Vomiting Nutrition/Malnutrition Assess - Dietary Evaluation Nutrition/Malnutrition Findings: Nutrition Notes Start: 07/12/20 11:40 Freq: Status: Active Protocol: Document 07/12/20 11:41 [email or web address] (Rec: 07/12/20 12:03 [email or web address]) Co-Sign 07/12/20 11:41 LM Nutrition Notes Need for Assessment generated from: manager filter,MST Initial or Follow up Assessment Other Pertinent Diagnosis AMS, Rhabdomyolysis, dehydration, Hx of stroke Current Diet Low Sodium Diet Labs/Tests 07/11 K 3.5 BUN 20 Cr 0.5 Glucose 122 Pertinent Medications Reviewed Height 5 ft Weight 55 kg [place] Body Weight (kg) 45.45 BMI 23.6 Intake Prior to Admission Poor Weight Status Appropriate Subjective/Other Information Pt screened for MST score. Pt is nonverbal. Spoke with RN, RN tried to feed the pt and pt would not open her mouth to eat or drink. 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 Is patient on ventilator? No Is Patient Ambulatory and/or Out of Bed No REE-([facility]-confined to bed) [phone] Calculation Used for Recommendations [facility] Additional Notes Protein Needs 44-55g/kg (.8-1g /kg) Fluid Needs: 1ml/kcal Nutrition Intervention Change Diet Order: Continue Add Supplement/Snack (indicate name/kcal Ensure Enlive BID /protein ) Provides kCal: 700 Provides Protein (gm) 40 Goal #1 meet at least 75% of energy and protein needs Anticipated Discharge Needs: cardiac diet Follow-Up By: 07/16/20 Additional Comments F/U for intakes & ONS tolerance
[2020-07-13] MEDS: SODIUM CHLORIDE 0.9% 500 ML 500 ML IV SCH (09:26)
[2020-07-13 10:47] LABS: Alanine Aminotransferase 54 units/L (7-56)
[2020-07-13 10:48] LABS: Bilirubin,Direct < 0.2 mg/dL (0-0.2)
[2020-07-13 10:49] LABS: Blood Urea Nitrogen 8 mg/dL (7-17); Calcium 7.9 mg/dL (8.4-10.2); Hemolysis Index 2
[2020-07-13 10:51] LABS: BUN/Creatinine Ratio 27
--- NOTE | 2020-07-13 11:07 | Consultation ---
History of Present Illness - Reason for Consult Consult date: 07/13/20 Reason for consult: from [facility] - History of Present Psychiatric Illness Vega Bahena is a 60y/o female patient who presented to the ER with UTI, decrease responsiveness and dehydration, from [facility], per medical record. I attempted to interview with patient today, she is lying in bed awake. The patient makes poor eye contact and keeps her head turned. Her affect is flat. The patient doesn't respond at times only stares. She then responds with one word when she does. It's not clear how much the patient understands, although medical record states the patient was speaking and answering questions in Lithuanian on 07/09. The nurse caring for the patient was asked for the language line. She went to look for it but returned and stated she doesn't know what happened to it but they no longer have one. As I'm attempting to interview the patient she is reaching in the air and side ways. She is pointing toward the window and ceiling and talking to herself. She then picks up her linen and says, "I'm trying to give this to you." PAST PSYCHIATRIC HISTORY Unable to obtain PAST MEDICAL HISTORY: Could not obtain Family Psychiatric History: Could not obtain SOCIAL HISTORY Unable to obtain REVIEW OF SYSTEMS Unable to obtain MENTAL STATUS EXAMINATION General Appearance: Dressed appropriately Behavior: calm Mood: Affect and affective range: Flat Thought Process: responding to internal stimuli Thought Content: Hallucinations Speech: Normal volume, Regular rate and rhythm Suicidal Ideation: Homicidal Ideation: Hallucinations: A/V Delusions: none elicited Insight and Judgment: Limited Memory/Cognition: Impaired Assessment Schizoaffctive Disorder PLAN Start Risperidone 0.25mg po BID Sitter: Defer to primary Medical: Per primary Disposition: Recommend acute inpatient psychiatric treatment Will continue to follow. Thank you for this consult. Medications and Allergies Allergies Allergy/AdvReac Type Severity Reaction Status Date / Time Unable to Assess Allergy Unverified 07/11/20 21:47 Active Meds: Active Medications Acetaminophen (Tylenol) 650 mg [place] Q4H PRN PRN Reason: Fever >101 Last Admin: 07/12/20 22:08 Dose: 650 mg Documented by: Heparin Sodium (Porcine) (Heparin) 5,000 unit SUB-Q Q8H KEITH Last Admin: 07/13/20 10:23 Dose: 5,000 unit Documented by: Sodium Chloride (Nacl 0.9% 1000 Ml) 1,000 mls @ 100 mls/hr IV DIRECT KEITH Last Admin: 07/13/20 08:27 Dose: 100 mls/hr Documented by: Sodium Chloride (Nacl 0.9% 500 Ml) 500 mls @ 999 mls/hr IV ONCE KEITH Stop: 07/13/20 12:00 Last Admin: 07/13/20 09:26 Dose: 999 mls/hr Documented by: Ondansetron HCl (Zofran) 4 mg IV Q8H PRN PRN Reason: Nausea And Vomiting Mental Status Exam - Vital signs Last Vital Signs Temp 97.9 F 07/13/20 07:19 Pulse 75 07/13/20 07:19 Resp 18 07/13/20 07:19 BP 116/49 07/13/20 07:19 Pulse Ox 98 07/13/20 08:30 Results Result Diagrams: 07/11/20 21:17 07/13/20 09:33 Abnormal lab results 07/12/20 07/13/20 07/13/20 Range/Units 15:13 09:33 09:33 Potassium 2.8 L* (3.6-5.0) mmol/L Chloride 107.9 H (98-107) mmol/L Creatinine 0.3 L (0.6-1.2) mg/dL Calcium 7.9 L D (8.4-10.2) mg/dL AST 83 H (5-40) units/L Total Creatine Kinase 1852 H 1678 H (30-135) units/L CK-MB (CK-2) 9.2 H (0.0-4.0) ng/mL Total Protein 5.3 L D (6.3-8.2) g/dL Albumin 3.0 L (3.9-5) g/dL All other labs normal.
[2020-07-13] MEDS: risperiDONE 0.25 MG TAB PO SCH ×2 (13:07→21:31)
[2020-07-13] MEDS ORDERED: POTASSIUM CHLORIDE ER 20 MEQ TAB PO ONE ×2 (14:50→18:00)
[2020-07-14] MEDS: HEPARIN 5,000 UNIT/1 ML VIAL SUB-Q SCH ×3 (01:24→17:40)
[2020-07-14] MEDS: SODIUM CHLORIDE 0.9% 1000 ML 1,000 ML IV SCH ×2 (04:20→17:40)
[2020-07-14] MEDS: POTASSIUM CHLORIDE 10 MEQ 10 MEQ/100 ML BAG IV SCH ×2 (05:19→06:15)
--- NOTE | 2020-07-14 08:38 | Progress Note ---
Subjective - Reason for Consult Consult date: 07/14/20 Reason for consult: AMS - Chief Complaint Chief complaint: The patient's medical record was reviewed and the patient's progress was discussed with the nursing staff. The nurse caring for the patient today states the patient has been talking to herself and laughing out loud. I attempted to interview the patient today. She is lying in bed awake. She makes poor eye contact. Her thoughts are disorganized. When I start to talk to her she begins making sheep-like sounds, saying "baahhh. baahhh." She does this after every question. She then starts reaching in the air. REVIEW OF SYSTEMS Unable to obtain MENTAL STATUS EXAMINATION General Appearance: Dressed appropriately Behavior: calm Mood: Affect and affective range: Flat Thought Process: responding to internal stimuli, disorganized Thought Content: Hallucinations Speech: incomprehensible, disorganized Suicidal Ideation: Homicidal Ideation: Hallucinations: A/V Delusions: none elicited Insight and Judgment: Limited Memory/Cognition: Impaired Assessment Schizoaffctive Disorder PLAN Increased Risperidone 0.5mg po BID Sitter: Defer to primary Medical: Per primary Disposition: Recommend acute inpatient psychiatric treatment Will continue to follow. Thank you for this consult. Mental Status Exam - Vital signs Last Vital Signs Temp 98.4 F 07/14/20 07:00 Pulse 80 07/14/20 07:00 Resp 20 07/14/20 07:00 BP 132/52 07/14/20 07:00 Pulse Ox 97 07/14/20 07:00
[2020-07-14] MEDS: risperiDONE 0.25 MG TAB PO SCH ×2 (09:35→21:22)
--- NOTE | 2020-07-14 12:23 | Progress Note ---
Assessment and Plan Assessment and plan: --Severe hypokalemia: Improved K today is 3.2 replenish per protocol with IV and oral KCl Follow electrolytes, Magnesium within normal limits --Schizo affective disorder; Current Visit: Yes Status: Acute . Plan to address problem: Psych evaluation and recommendations noted and appreciated. Management per psych Recommend inpatient psych placement -- Rhabdomyolysis- Current Visit: Yes Status: Acute Plan to address problem: Preserved renal function, reduce IV hydration Input output monitoring, monitor CK levels CK levels trending down [id number] Continue current IV hydration --Acute metabolic encephalopathy /altered mental state Current Visit: Yes Status: Acute Multifactorial , dehydration , rhabdomyolysis Patient came from [place] , psych consult neurochecks, supportive care Treat the underlying cause --Severe dehydration Current Visit: Yes Status: Acute . Plan to address problem: IV hydration Monitor renal function Input output monitoring Encourage plenty oral fluids --transaminitis:- Current Visit: Yes Status: Acute Plan to address problem: Probably secondary to rhabdo Possible alcoholic liver disease Trend transaminases --DVT prophylaxis; Heparin subcu Closely monitor the patient and adjust management as needed Plan of care reviewed with the patient's nurse Psych recommended inpatient psych placement once medically stable Hopefully patient will be is medically stable in 1 to 2 days and will plan transfer to inpatient psych History Interval history: I have seen and examined the patient in the bedside Patient is minimally communicative hallucinations and psychosis Not in acute distress CK levels trending down Patient has no new complaints, vital signs noted Hospitalist Physical - Constitutional Vitals: Temp Pulse Resp BP Pulse Ox 98.0 F 72 19 140/58 97 07/14/20 11:00 07/14/20 11:07/14/20 11:00 07/14/20 11:07/14/20 11:00 General appearance: Present: no acute distress, well-nourished, other (Hallucinating) - EENT Eyes: Present: PERRL, EOM intact - Neck Neck: Present: supple, normal ROM - Respiratory Respiratory effort: normal Respiratory: bilateral: diminished, negative: rales, rhonchi, wheezing - Cardiovascular Rhythm: regular Heart Sounds: Present: S1 & S2 - Extremities Extremities: no ischemia, No edema - Abdominal General gastrointestinal: soft, non-tender, non-distended, normal bowel sounds - Integumentary Integumentary: Present: clear, warm - Psychiatric Psychiatric: appropriate mood/affect, cooperative - Neurologic Neurologic: CNII-XII intact, moves all extremities HEART Score - HEART Score Risk factors: 1-2 risk factors Troponin: Troponin T < 0.010 ng/mL (0.00-0.029) 07/11/20 21:17 Troponin: < normal limit - Critical Actions Critical Actions: 0-3 pts:0.9-1.7%risk of adverse cardiac event.Candidate for discharge Results - Labs CBC & Chem 7: 07/11/20 21:17 07/14/20 01:52 Labs: Laboratory Last Values WBC 11.7 K/mm3 (4.5-11.0) H 07/11/20 21:17 RBC 4.17 M/mm3 (3.65-5.03) 07/11/20 21:17 Hgb 14.4 gm/dl (10.1-14.3) H 07/11/20 21:17 Hct 40.1 % (30.3-42.9) 07/11/20 21:17 MCV 96 fl (79-97) 07/11/20 21:17 MCH 35 pg (28-32) H 07/11/20 21:17 MCHC 36 % (30-34) H 07/11/20 21:17 RDW 13.4 % (13.2-15.2) 07/11/20 21:17 Plt Count 255 K/mm3 (140-440) 07/11/20 21:17 Lymph % (Auto) 21.6 % (13.4-35.0) 07/11/20 21:17 [place] % (Auto) 5.7 % (0.0-7.3) 07/11/20 21:17 Eos % (Auto) 0.3 % (0.0-4.3) 07/11/20 21:17 Baso % (Auto) 0.3 % (0.0-1.8) 07/11/20 21:17 Lymph # 2.5 K/mm3 (1.2-5.4) 07/11/20 21:17 [place] # 0.7 K/mm3 (0.0-0.8) 07/11/20 21:17 Eos # 0.0 K/mm3 (0.0-0.4) 07/11/20 21:17 Baso # 0.0 K/mm3 (0.0-0.1) 07/11/20 21:17 Seg Neutrophils % 72.1 % (40.0-70.0) H 07/11/20 21:17 Seg Neutrophils # 8.5 K/mm3 (1.8-7.7) H 07/11/20 21:17 Sodium 144 mmol/L (137-145) 07/13/20 09:33 Potassium 3.2 mmol/L (3.6-5.0) L 07/14/20 01:52 Chloride 107.9 mmol/L (98-107) H 07/13/20 09:33 Carbon Dioxide 23 mmol/L (22-30) 07/13/20 09:33 Anion Gap 16 mmol/L 07/13/20 09:33 BUN 8 mg/dL (7-17) 07/13/20 09:33 Creatinine 0.3 mg/dL (0.6-1.2) L 07/13/20 09:33 Estimated GFR > 60 ml/min 07/13/20 09:33 BUN/Creatinine Ratio 27 % 07/13/20 09:33 Glucose 77 mg/dL (65-100) 07/13/20 09:33 Lactic Acid 1.50 mmol/L (0.7-2.0) 07/12/20 00:04 Calcium 7.9 mg/dL (8.4-10.2) L D 07/13/20 09:33 Magnesium 1.70 mg/dL (1.7-2.3) 07/13/20 15:57 Total Bilirubin 0.70 mg/dL (0.1-1.2) 07/13/20 09:33 Direct Bilirubin < 0.2 mg/dL (0-0.2) 07/13/20 09:33 AST 83 units/L (5-40) H 07/13/20 09:33 ALT 54 units/L (7-56) 07/13/20 09:33 Alkaline Phosphatase 46 units/L (35-129) 07/13/20 09:33 Ammonia 28.0 umol/L (25-60) 07/11/20 21:17 Total Creatine Kinase 1678 units/L (30-135) H 07/13/20 09:33 CK-MB (CK-2) 9.2 ng/mL (0.0-4.0) H 07/12/20 15:13 CK-MB (CK-2) Rel Index 0.4 (0-4) 07/12/20 15:13 Troponin T < 0.010 ng/mL (0.00-0.029) 07/11/20 21:17 Total Protein 5.3 g/dL (6.3-8.2) L D 07/13/20 09:33 Albumin 3.0 g/dL (3.9-5) L 07/13/20 09:33 Albumin/Globulin Ratio 1.3 % 07/13/20 09:33 Urine Color Yellow (Yellow) 07/11/20 Unknown Urine Turbidity Clear (Clear) 07/11/20 Unknown Urine pH 6.0 (5.0-7.0) 07/11/20 Unknown Ur Specific [place] 1.023 (1.003-1.030) 07/11/20 Unknown Urine Protein 30 mg/dl mg/dL (Negative) 07/11/20 Unknown Urine Glucose (UA) Neg mg/dL (Negative) 07/11/20 Unknown Urine Ketones Tr mg/dL (Negative) 07/11/20 Unknown Urine Blood Neg (Negative) 07/11/20 Unknown Urine Nitrite Neg (Negative) 07/11/20 Unknown Urine Bilirubin Neg (Negative) 07/11/20 Unknown Urine Urobilinogen 2.0 mg/dL (<2.0) 07/11/20 Unknown Ur Leukocyte Esterase Neg (Negative) 07/11/20 Unknown Urine WBC (Auto) 2.0 /HPF (0.0-6.0) 07/11/20 Unknown Urine RBC (Auto) 3.0 /HPF (0.0-6.0) 07/11/20 Unknown U Epithel Cells (Auto) 3.0 /HPF (0-13.0) 07/11/20 Unknown Urine Mucus 3+ /HPF 07/11/20 Unknown Salicylates < 0.3 mg/dL (2.8-20.0) L 07/11/20 21:17 Urine Opiates Screen Presumptive negative 07/11/20 Unknown Urine Methadone Screen Presumptive negative 07/11/20 Unknown Acetaminophen 5.0 ug/mL (10.0-30.0) L 07/11/20 21:17 Ur Barbiturates Screen Presumptive negative 07/11/20 Unknown Ur Phencyclidine Scrn Presumptive negative 07/11/20 Unknown Ur Amphetamines Screen Presumptive negative 07/11/20 Unknown U Benzodiazepines Scrn Presumptive negative 07/11/20 Unknown Urine Cocaine Screen Presumptive negative 07/11/20 Unknown U Marijuana (THC) Screen Presumptive negative 07/11/20 Unknown Drugs of Abuse Note Disclamer 07/11/20 Unknown Microbiology: Microbiology 07/11/20 21:24 Peripheral/Venous Blood Culture - Preliminary NO GROWTH AFTER 48 HOURS 07/11/20 21:17 Peripheral/Venous Blood Culture - Preliminary NO GROWTH AFTER 48 HOURS Ledesma/IV: Voiding Method External Female Catheter IV Catheter Type [Right Peripheral IV Forearm] IV Catheter Type [Left Hand] INT / Saline Lock Active Medications - Current Medications Current Medications: Generic Name Dose Route Start Last Admin Trade Name Freq PRN Reason Stop Dose Admin Acetaminophen 650 mg 07/12/20 01:05 07/12/20 22:08 Tylenol [place] 650 mg Q4H PRN Administration Fever >101 Heparin Sodium (Porcine) 5,000 unit 07/12/20 10:00 07/14/20 09:34 Heparin SUB-Q 5,000 unit Q8H KEITH Administration Sodium Chloride 1,000 mls @ 100 mls/hr 07/12/20 01:00 07/14/20 04:20 Nacl 0.9% 1000 Ml IV 100 mls/hr DIRECT KEITH Administration Ondansetron HCl 4 mg 07/12/20 01:06 Zofran IV Q8H PRN Nausea And Vomiting Potassium Chloride 40 meq 07/14/20 13:18 K-Dur PO 07/14/20 13:19 ONCE ONE Risperidone 0.5 mg 07/14/20 10:00 07/14/20 09:35 Risperdal PO 0.5 mg BID KEITH Administration Nutrition/Malnutrition Assess - Dietary Evaluation Nutrition/Malnutrition Findings: Nutrition Notes Start: 07/12/20 11:40 Freq: Status: Active Protocol: Document 07/12/20 11:41 [email or web address] (Rec: 07/12/20 12:03 [email or web address]) Co-Sign 07/12/20 11:41 LM Nutrition Notes Need for Assessment generated from: governor assembler,MST Initial or Follow up Assessment Other Pertinent Diagnosis AMS, Rhabdomyolysis, dehydration, Hx of stroke Current Diet Low Sodium Diet Labs/Tests 07/11 K 3.5 BUN 20 Cr 0.5 Glucose 122 Pertinent Medications Reviewed Height 5 ft Weight 55 kg [place] Body Weight (kg) 45.45 BMI 23.6 Intake Prior to Admission Poor Weight Status Appropriate Subjective/Other Information Pt screened for MST score. Pt is nonverbal. Spoke with RN, RN tried to feed the pt and pt would not open her mouth to eat or drink. Burn Absent Trauma Absent GI Symptoms None Current % PO Negligible Minimum of two criteria No physical signs of malnutrition #1 Nutrition Diagnosis Inadequate oral intake Etiology AMS As Evidenced by Signs and Symptoms decreased oral intake [employer] and pt refusing to eat when nurse feeds. Is patient on ventilator? No Is Patient Ambulatory and/or Out of Bed No REE-([facility]-confined to bed) 1248.996 Calculation Used for Recommendations [facility] Additional Notes Protein Needs 44-55g/kg (.8-1g /kg) Fluid Needs: 1ml/kcal Nutrition Intervention Change Diet Order: Continue Add Supplement/Snack (indicate name/kcal Ensure Enlive BID /protein ) Provides kCal: 700 Provides Protein (gm) 40 Goal #1 meet at least 75% of energy and protein needs Anticipated Discharge Needs: cardiac diet Follow-Up By: 07/16/20 Additional Comments F/U for intakes & ONS tolerance
[2020-07-14] MEDS ORDERED: POTASSIUM CHLORIDE ER 20 MEQ TAB PO ONE (13:18)
[2020-07-15] MEDS: SODIUM CHLORIDE 0.9% 1000 ML 1,000 ML IV SCH (02:45)
[2020-07-15] MEDS: HEPARIN 5,000 UNIT/1 ML VIAL SUB-Q SCH ×4 (02:45→18:12)
[2020-07-15 07:26] LABS: Blood Urea Nitrogen 4 mg/dL (7-17); Calcium 8.3 mg/dL (8.4-10.2); Hemolysis Index 4
[2020-07-15 07:27] LABS: BUN/Creatinine Ratio 13
[2020-07-15] MEDS ORDERED: POTASSIUM CHLORIDE ER 20 MEQ TAB PO ONE (07:53)
[2020-07-15] MEDS ORDERED: SODIUM CHLORIDE 0.9% 1000 ML 1,000 ML with POTASSIUM CHLORIDE 20 MEQ IV SCH (08:05)
[2020-07-15] MEDS ORDERED: FUROSEMIDE 40 MG/4 ML INJ IV ONE (08:14)
--- NOTE | 2020-07-15 08:14 | Progress Note ---
Assessment and Plan Assessment and plan: -- Rhabdomyolysis- Current Visit: Yes Status: Acute Plan to address problem: Preserved renal function, reduce IV hydration Input output monitoring, monitor CK levels CK levels trending down [id number] Continue current IV hydration Give 1 dose of IV Lasix to prevent fluid overload --Severe hypokalemia: K today is again is 2.7 Nurse reports that patient did not take oral KCl yesterday We will give 40 mEq KCl IV K riders Add to normal saline IV fluids 20 mEq Follow electrolytes, Magnesium within normal limits --Schizo affective disorder; Current Visit: Yes Status: Acute . Plan to address problem: Psych evaluation and recommendations noted and appreciated. Management per psych Recommend inpatient psych placement --Acute metabolic encephalopathy /altered mental state Current Visit: Yes Status: Acute Multifactorial , schizoaffective disorder Patient came from [place] , psych evaluation noted Recommend inpatient psych placement when medically stable --Severe dehydration Current Visit: Yes Status: Acute . Plan to address problem: Improved , continue IV hydration Input output monitoring Encourage plenty oral fluids --transaminitis:- Current Visit: Yes Status: Acute Plan to address problem: Probably secondary to rhabdo Possible alcoholic liver disease Trend transaminases --DVT prophylaxis; Heparin subcu Closely monitor the patient and adjust management as needed Plan of care reviewed with the patient's nurse Psych recommended inpatient psych placement once medically stable Hopefully patient will be is medically stable in 1 to 2 days and will plan transfer to inpatient psych 07/13; patient's CK levels trending down on 1678, continue IV hydration patient is more alert at times, hallucinating Noncommunicative, severe hypokalemia, replace per protocol 07/14; potassium level significantly improved today to 3.2, replenish per protocol CK levels trending down 828, continue IV hydration, monitor electrolytes 06/14; patient refused potassium yesterday today potassium levels again 2.7 We will add KCl to IV fluids, and IV K riders, monitor electrolytes CK level 425. Refusing to eat confused noncommunicative Possible inpatient psych admission when medically stable History Interval history: I have seen and examined the patient Patient's chart and medications reviewed Patient has severe hypokalemia Noncommunicative confused hallucinating Refusing to eat or take medications Vital signs noted Hospitalist Physical - Constitutional Vitals: Temp Pulse Resp BP Pulse Ox 98.3 F 83 18 120/67 95 07/15/20 07:00 07/15/20 07:00 07/15/20 07:00 07/15/20 07:00 07/15/20 07:00 General appearance: Present: no acute distress, well-nourished, other (Hallucinating) - EENT Eyes: Present: PERRL, EOM intact - Neck Neck: Present: supple, normal ROM - Respiratory Respiratory effort: normal Respiratory: bilateral: diminished, negative: rales, rhonchi, wheezing - Cardiovascular Rhythm: regular Heart Sounds: Present: S1 & S2 - Extremities Extremities: no ischemia, No edema - Abdominal General gastrointestinal: soft, non-tender, non-distended, normal bowel sounds - Integumentary Integumentary: Present: clear, warm - Psychiatric Psychiatric: appropriate mood/affect, cooperative - Neurologic Neurologic: moves all extremities HEART Score - HEART Score Risk factors: 1-2 risk factors Troponin: Troponin T < 0.010 ng/mL (0.00-0.029) 07/11/20 21:17 Troponin: < normal limit - Critical Actions Critical Actions: 0-3 pts:0.9-1.7%risk of adverse cardiac event.Candidate for discharge Results - Labs CBC & Chem 7: 07/11/20 21:17 07/15/20 05:55 Labs: Laboratory Last Values WBC 11.7 K/mm3 (4.5-11.0) H 07/11/20 21:17 RBC 4.17 M/mm3 (3.65-5.03) 07/11/20 21:17 Hgb 14.4 gm/dl (10.1-14.3) H 07/11/20 21:17 Hct 40.1 % (30.3-42.9) 07/11/20 21:17 MCV 96 fl (79-97) 07/11/20 21:17 MCH 35 pg (28-32) H 07/11/20 21:17 MCHC 36 % (30-34) H 07/11/20 21:17 RDW 13.4 % (13.2-15.2) 07/11/20 21:17 Plt Count 255 K/mm3 (140-440) 07/11/20 21:17 Lymph % (Auto) 21.6 % (13.4-35.0) 07/11/20 21:17 Major % (Auto) 5.7 % (0.0-7.3) 07/11/20 21:17 Eos % (Auto) 0.3 % (0.0-4.3) 07/11/20 21:17 Baso % (Auto) 0.3 % (0.0-1.8) 07/11/20 21:17 Lymph # 2.5 K/mm3 (1.2-5.4) 07/11/20 21:17 Major # 0.7 K/mm3 (0.0-0.8) 07/11/20 21:17 Eos # 0.0 K/mm3 (0.0-0.4) 07/11/20 21:17 Baso # 0.0 K/mm3 (0.0-0.1) 07/11/20 21:17 Seg Neutrophils % 72.1 % (40.0-70.0) H 07/11/20 21:17 Seg Neutrophils # 8.5 K/mm3 (1.8-7.7) H 07/11/20 21:17 Sodium 139 mmol/L (137-145) 07/15/20 05:55 Potassium 2.7 mmol/L (3.6-5.0) L* 07/15/20 05:55 Chloride 104.0 mmol/L (98-107) 07/15/20 05:55 Carbon Dioxide 16 mmol/L (22-30) L D 07/15/20 05:55 Anion Gap 22 mmol/L 07/15/20 05:55 BUN 4 mg/dL (7-17) L 07/15/20 05:55 Creatinine 0.3 mg/dL (0.6-1.2) L 07/15/20 05:55 Estimated GFR > 60 ml/min 07/15/20 05:55 BUN/Creatinine Ratio 13 % 07/15/20 05:55 Glucose 67 mg/dL (65-100) 07/15/20 05:55 Lactic Acid 1.50 mmol/L (0.7-2.0) 07/12/20 00:04 Calcium 8.3 mg/dL (8.4-10.2) L 07/15/20 05:55 Magnesium 1.70 mg/dL (1.7-2.3) 07/15/20 05:55 Total Bilirubin 0.70 mg/dL (0.1-1.2) 07/13/20 09:33 Direct Bilirubin < 0.2 mg/dL (0-0.2) 07/13/20 09:33 AST 83 units/L (5-40) H 07/13/20 09:33 ALT 54 units/L (7-56) 07/13/20 09:33 Alkaline Phosphatase 46 units/L (35-129) 07/13/20 09:33 Ammonia 28.0 umol/L (25-60) 07/11/20 21:17 Total Creatine Kinase 425 units/L (30-135) H 07/15/20 05:55 CK-MB (CK-2) 9.2 ng/mL (0.0-4.0) H 07/12/20 15:13 CK-MB (CK-2) Rel Index 0.4 (0-4) 07/12/20 15:13 Troponin T < 0.010 ng/mL (0.00-0.029) 07/11/20 21:17 Total Protein 5.3 g/dL (6.3-8.2) L D 07/13/20 09:33 Albumin 3.0 g/dL (3.9-5) L 07/13/20 09:33 Albumin/Globulin Ratio 1.3 % 07/13/20 09:33 Urine Color Yellow (Yellow) 07/11/20 Unknown Urine Turbidity Clear (Clear) 07/11/20 Unknown Urine pH 6.0 (5.0-7.0) 07/11/20 Unknown Ur Specific [place] 1.023 (1.003-1.030) 07/11/20 Unknown Urine Protein 30 mg/dl mg/dL (Negative) 07/11/20 Unknown Urine Glucose (UA) Neg mg/dL (Negative) 07/11/20 Unknown Urine Ketones Tr mg/dL (Negative) 07/11/20 Unknown Urine Blood Neg (Negative) 07/11/20 Unknown Urine Nitrite Neg (Negative) 07/11/20 Unknown Urine Bilirubin Neg (Negative) 07/11/20 Unknown Urine Urobilinogen 2.0 mg/dL (<2.0) 07/11/20 Unknown Ur Leukocyte Esterase Neg (Negative) 07/11/20 Unknown Urine WBC (Auto) 2.0 /HPF (0.0-6.0) 07/11/20 Unknown Urine RBC (Auto) 3.0 /HPF (0.0-6.0) 07/11/20 Unknown U Epithel Cells (Auto) 3.0 /HPF (0-13.0) 07/11/20 Unknown Urine Mucus 3+ /HPF 07/11/20 Unknown Salicylates < 0.3 mg/dL (2.8-20.0) L 07/11/20 21:17 Urine Opiates Screen Presumptive negative 07/11/20 Unknown Urine Methadone Screen Presumptive negative 07/11/20 Unknown Acetaminophen 5.0 ug/mL (10.0-30.0) L 07/11/20 21:17 Ur Barbiturates Screen Presumptive negative 07/11/20 Unknown Ur Phencyclidine Scrn Presumptive negative 07/11/20 Unknown Ur Amphetamines Screen Presumptive negative 07/11/20 Unknown U Benzodiazepines Scrn Presumptive negative 07/11/20 Unknown Urine Cocaine Screen Presumptive negative 07/11/20 Unknown U Marijuana (THC) Screen Presumptive negative 07/11/20 Unknown Drugs of Abuse Note Disclamer 07/11/20 Unknown Microbiology: Microbiology 07/11/20 21:24 Peripheral/Venous Blood Culture - Preliminary NO GROWTH AFTER 72 HOURS 07/11/20 21:17 Peripheral/Venous Blood Culture - Preliminary NO GROWTH AFTER 72 HOURS 07/11/20 Unknown Urine,Clean Catch Urine Culture - Final NO GROWTH AFTER 48 HOURS Ledesma/IV: Voiding Method External Female Catheter IV Catheter Type [Right Peripheral IV Forearm] IV Catheter Type [Left Hand] INT / Saline Lock Active Medications - Current Medications Current Medications: Generic Name Dose Route Start Last Admin Trade Name Freq PRN Reason Stop Dose Admin Acetaminophen 650 mg 07/12/20 01:05 07/12/20 22:08 Tylenol [place] 650 mg Q4H PRN Administration Fever >101 Heparin Sodium (Porcine) 5,000 unit 07/12/20 10:00 07/15/20 02:45 Heparin SUB-Q 5,000 unit Q8H KEITH Administration Potassium Chloride 10 meq in 100 mls @ 100 mls/hr 07/15/20 09:00 Kcl 10meq/100ml IV 07/15/20 12:59 Q1H KEITH Potassium Chloride 20 meq/ 1,010 mls @ 100 mls/hr 07/15/20 08:05 Sodium Chloride IV DIRECT KEITH Ondansetron HCl 4 mg 07/12/20 01:06 Zofran IV Q8H PRN Nausea And Vomiting Risperidone 0.5 mg 07/14/20 10:00 07/14/20 21:22 Risperdal PO 0.5 mg BID KEITH Administration Nutrition/Malnutrition Assess - Dietary Evaluation Nutrition/Malnutrition Findings: Nutrition Notes Start: 07/12/20 11:40 Freq: Status: Active Protocol: Document 07/12/20 11:41 [email or web address] (Rec: 07/12/20 12:03 [email or web address]) Co-Sign 07/12/20 11:41 LM Nutrition Notes Need for Assessment generated from: support merchandiser,MST Initial or Follow up Assessment Other Pertinent Diagnosis AMS, Rhabdomyolysis, dehydration, Hx of stroke Current Diet Low Sodium Diet Labs/Tests 07/11 K 3.5 BUN 20 Cr 0.5 Glucose 122 Pertinent Medications Reviewed Height 5 ft Weight 55 kg [place] Body Weight (kg) 45.45 BMI 23.6 Intake Prior to Admission Poor Weight Status Appropriate Subjective/Other Information Pt screened for MST score. Pt is nonverbal. Spoke with RN, RN tried to feed the pt and pt would not open her mouth to eat or drink. Burn Absent Trauma Absent GI Symptoms None Current % PO Negligible Minimum of two criteria No physical signs of malnutrition #1 Nutrition Diagnosis Inadequate oral intake Etiology AMS As Evidenced by Signs and Symptoms decreased oral intake BOLOGNA LACER and pt refusing to eat when nurse feeds. Is patient on ventilator? No Is Patient Ambulatory and/or Out of Bed No REE-([facility]-confined to bed) 1248.996 Calculation Used for Recommendations [facility] Additional Notes Protein Needs 44-55g/kg (.8-1g /kg) Fluid Needs: 1ml/kcal Nutrition Intervention Change Diet Order: Continue Add Supplement/Snack (indicate name/kcal Ensure Enlive BID /protein ) Provides kCal: 700 Provides Protein (gm) 40 Goal #1 meet at least 75% of energy and protein needs Anticipated Discharge Needs: cardiac diet Follow-Up By: 07/16/20 Additional Comments F/U for intakes & ONS tolerance
[2020-07-15] MEDS: POTASSIUM CHLORIDE 10 MEQ 10 MEQ/100 ML BAG IV SCH ×4 (08:46→11:58)
[2020-07-15] MEDS: SODIUM BICARBONATE 650 MG TAB PO SCH ×2 (09:43→22:03)
[2020-07-15] MEDS: risperiDONE 0.25 MG TAB PO SCH (09:43)
--- NOTE | 2020-07-15 09:59 | Progress Note ---
Subjective - Reason for Consult Consult date: 07/15/20 Reason for consult: AMS - Chief Complaint Chief complaint: The patient's medical record was reviewed and the patient's progress was discussed with the nursing staff. The nurse note states the patient was received lying in bed awake, oriented to self only. She was noted rambling and laughing to self. I attempted to interview the patient today. She is avoidant. Her behavior is bizarre. Upon entering her room, she is lying in bed with her hand stretched over her head and positioned there. She is attempting to appear asleep. Her eyes are blinking, but she does not respond to me calling her name to to any tactile stimulation. Her right arm is positioned stretched above her head the entire time. As I'm leaving the room, I turn to look back at the patient, she has her eyes open looking at me. When I walk back up to the bedside, she just stares at me. She doesn't respond. REVIEW OF SYSTEMS Unable to obtain MENTAL STATUS EXAMINATION General Appearance: Dressed appropriately Behavior: Bizarre, avoidant. Mood: Affect and affective range: Flat Thought Process: responding to internal stimuli, disorganized Thought Content: Hallucinations Speech: incomprehensible, disorganized Suicidal Ideation: Homicidal Ideation: Hallucinations: A/V Delusions: none elicited Insight and Judgment: Limited Memory/Cognition: Impaired Assessment Schizoaffctive Disorder PLAN Increased Risperidone 1mg po BID Start Depakote DR 125mg po BID Sitter: Defer to primary Medical: Per primary Disposition: Recommend acute inpatient psychiatric treatment Will continue to follow. Thank you for this consult. Mental Status Exam - Vital signs Last Vital Signs Temp 98.3 F 07/15/20 07:00 Pulse 83 07/15/20 07:00 Resp 18 07/15/20 07:00 BP 120/67 07/15/20 07:00 Pulse Ox 95 07/15/20 07:00
[2020-07-15] MEDS ORDERED: POTASSIUM CHLORIDE ER 20 MEQ TAB PO SCH (10:00)
[2020-07-15] MEDS: SODIUM CHLORIDE 0.9% IV SCH ×2 (10:49→22:45)
[2020-07-15] MEDS: POTASSIUM CHLORIDE IV SCH ×2 (10:49→22:45)
[2020-07-15] MEDS: DIVALPROEX DR 125 MG TAB PO SCH ×2 (12:13→22:03)
[2020-07-15] MEDS ORDERED: risperiDONE 1 MG TAB PO SCH (22:00)
[2020-07-16] MEDS: HEPARIN 5,000 UNIT/1 ML VIAL SUB-Q SCH ×3 (02:30→18:27)
--- NOTE | 2020-07-16 08:40 | Progress Note ---
Subjective - Reason for Consult Consult date: 07/16/20 Reason for consult: hallucinations, from anchor - Chief Complaint Chief complaint: The patient's medical record was reviewed and the patient's progress was discussed with the nursing staff. Nursing staff states the patient continues to reach in the air for things, and laughs and mumbles at times. I attempted to interview the patient today. She is uncooperative. She is responding to internal stimuli. She is lying with her eyes closed. She has her arms drawn up close to her. She barely opens her eyes then closes them back. The patient starts smiling to herself. She would not respond to me touching her or calling her name. The nurse caring for the patient set up the language line. The patient would not respond to manager user interface. She just laid there. REVIEW OF SYSTEMS Unable to obtain MENTAL STATUS EXAMINATION General Appearance: Dressed appropriately Behavior: Uncooperative Mood: Affect and affective range: Flat Thought Process: responding to internal stimuli, disorganized Thought Content: Hallucinations Speech: Nonverbal Suicidal Ideation: Homicidal Ideation: Hallucinations: A/V Delusions: none elicited Insight and Judgment: Limited Memory/Cognition: Impaired Assessment Schizoaffctive Disorder PLAN Increased Risperidone 1.5mg po BID Change Depakote DR to Valproat Sodium 500mg IV q12h until patient is compliant with meds Sitter: Defer to primary Medical: Per primary Disposition: Recommend acute inpatient psychiatric treatment Will continue to follow. Thank you for this consult. Mental Status Exam - Vital signs Last Vital Signs Temp 99.0 F 07/16/20 07:29 Pulse 92 H 07/16/20 07:29 Resp 18 07/16/20 07:29 BP 103/67 07/16/20 07:29 Pulse Ox 95 07/16/20 07:29
[2020-07-16 09:15] LABS: Blood Urea Nitrogen 7 mg/dL (7-17); Calcium 8.6 mg/dL (8.4-10.2); Hemolysis Index 1
[2020-07-16 09:18] LABS: BUN/Creatinine Ratio 23
[2020-07-16] MEDS ORDERED: VALPROATE SODIUM 500 MG in SODIUM CHLORIDE 0.9% 100 ML IV SCH (10:00)
[2020-07-16] MEDS: risperiDONE 1 MG TAB PO SCH ×2 (10:05→21:28)
[2020-07-16] MEDS: SODIUM BICARBONATE 650 MG TAB PO SCH ×2 (10:05→21:29)
--- NOTE | 2020-07-16 11:34 | Progress Note ---
Assessment and Plan Assessment and plan: -- Rhabdomyolysis-resolved Current Visit: Yes Status: Acute Plan to address problem: Preserved renal function, reduce IV hydration Input output monitoring, monitor CK levels CK levels trending down [id number] --Severe hypokalemia: K today is again is 2.7-3.1, We will give 40 mEq KCl IV K riders Add to normal saline IV fluids 20 mEq Follow electrolytes, Magnesium within normal limits --Schizo affective disorder; Current Visit: Yes Status: Acute . Plan to address problem: Psych evaluation and recommendations noted and appreciated. Management per psych Recommend inpatient psych placement --Acute metabolic encephalopathy /altered mental state Current Visit: Yes Status: Acute Multifactorial , schizoaffective disorder Patient came from [place] , psych evaluation noted Recommend inpatient psych placement when medically stable --Severe dehydration; improved Current Visit: Yes Status: Acute . Plan to address problem: Improved , continue IV hydration Input output monitoring Encourage plenty oral fluids --transaminitis:- Current Visit: Yes Status: Acute Plan to address problem: Probably secondary to rhabdo Trending down --DVT prophylaxis; Heparin subcu Closely monitor the patient and adjust management as needed Plan of care reviewed with the patient's nurse Psych recommended inpatient psych placement once medically stable Hopefully patient will be medically stable in 1 to 2 days and will plan transfer to inpatient psych 07/13; patient's CK levels trending down on 1678, continue IV hydration patient is more alert at times, hallucinating Noncommunicative, severe hypokalemia, replace per protocol 07/14; potassium level significantly improved today to 3.2, replenish per protocol CK levels trending down 828, continue IV hydration, monitor electrolytes 07/15; patient refused potassium yesterday today potassium levels again 2.7 We will add KCl to IV fluids, and IV K riders, monitor electrolytes CK level 425. Refusing to eat confused noncommunicative Possible inpatient psych admission when medically stable 07/16; rhabdomyolysis resolved, mild electrolyte imbalances, if corrected medically stable for inpatient psych placement Brief history: 60-year-old female patient was sent from [facility] with altered level of consciousness and poor oral intake. Patient has schizoaffective disorder with active hallucinations and confusion, Patient was noted to have rhabdomyolysis and multiple electrolyte imbalances, Rhabdomyolysis is resolved, mild hypokalemia and hypo-phosphatemia, being corrected, Patient is waiting to be placed inpatient psych when medically stable . History Interval history: I have seen and examined the patient at bedside Patient's chart and medications reviewed Patient is noncommunicative, hallucinating Refusing to take oral Vital signs noted Hospitalist Physical - Constitutional Vitals: Temp Pulse Resp BP Pulse Ox 98.0 F 96 H 18 97/60 98 07/16/20 11:14 07/16/20 11:14 07/16/20 11:14 07/16/20 11:14 07/16/20 11:14 General appearance: Present: no acute distress, well-nourished, other (H allucinating) - EENT Eyes: Present: PERRL, EOM intact - Neck Neck: Present: supple, normal ROM - Respiratory Respiratory effort: normal Respiratory: bilateral: diminished, negative: rales, rhonchi, wheezing - Cardiovascular Rhythm: regular Heart Sounds: Present: S1 & S2 - Extremities Extremities: no ischemia, No edema - Abdominal General gastrointestinal: soft, non-tender, non-distended, normal bowel sounds - Integumentary Integumentary: Present: clear, warm - Psychiatric Psychiatric: other (Hallucinations) - Neurologic Neurologic: other (Hallucinations) HEART Score - HEART Score Risk factors: 1-2 risk factors Troponin: Troponin T < 0.010 ng/mL (0.00-0.029) 07/11/20 21:17 Troponin: < normal limit - Critical Actions Critical Actions: 0-3 pts:0.9-1.7%risk of adverse cardiac event.Candidate for discharge Results - Labs CBC & Chem 7: 07/11/20 21:17 07/16/20 08:26 Labs: Laboratory Last Values WBC 11.7 K/mm3 (4.5-11.0) H 07/11/20 21:17 RBC 4.17 M/mm3 (3.65-5.03) 07/11/20 21:17 Hgb 14.4 gm/dl (10.1-14.3) H 07/11/20 21:17 Hct 40.1 % (30.3-42.9) 07/11/20 21:17 MCV 96 fl (79-97) 07/11/20 21:17 MCH 35 pg (28-32) H 07/11/20 21:17 MCHC 36 % (30-34) H 07/11/20 21:17 RDW 13.4 % (13.2-15.2) 07/11/20 21:17 Plt Count 255 K/mm3 (140-440) 07/11/20 21:17 Lymph % (Auto) 21.6 % (13.4-35.0) 07/11/20 21:17 [place] % (Auto) 5.7 % (0.0-7.3) 07/11/20 21:17 Eos % (Auto) 0.3 % (0.0-4.3) 07/11/20 21:17 Baso % (Auto) 0.3 % (0.0-1.8) 07/11/20 21:17 Lymph # 2.5 K/mm3 (1.2-5.4) 07/11/20 21:17 [place] # 0.7 K/mm3 (0.0-0.8) 07/11/20 21:17 Eos # 0.0 K/mm3 (0.0-0.4) 07/11/20 21:17 Baso # 0.0 K/mm3 (0.0-0.1) 07/11/20 21:17 Seg Neutrophils % 72.1 % (40.0-70.0) H 07/11/20 21:17 Seg Neutrophils # 8.5 K/mm3 (1.8-7.7) H 07/11/20 21:17 Sodium 141 mmol/L (137-145) 07/16/20 08:26 Potassium 3.1 mmol/L (3.6-5.0) L 07/16/20 08:26 Chloride 108.0 mmol/L (98-107) H 07/16/20 08:26 Carbon Dioxide 14 mmol/L (22-30) L 07/16/20 08:26 Anion Gap 22 mmol/L 07/16/20 08:26 BUN 7 mg/dL (7-17) 07/16/20 08:26 Creatinine 0.3 mg/dL (0.6-1.2) L 07/16/20 08:26 Estimated GFR > 60 ml/min 07/16/20 08:26 BUN/Creatinine Ratio 23 % 07/16/20 08:26 Glucose 92 mg/dL (65-100) 07/16/20 08:26 Lactic Acid 1.50 mmol/L (0.7-2.0) 07/12/20 00:04 Calcium 8.6 mg/dL (8.4-10.2) 07/16/20 08:26 Phosphorus 2.40 mg/dL (2.5-4.5) L 07/16/20 08:26 Magnesium 1.80 mg/dL (1.7-2.3) 07/16/20 08:26 Total Bilirubin 0.70 mg/dL (0.1-1.2) 07/13/20 09:33 Direct Bilirubin < 0.2 mg/dL (0-0.2) 07/13/20 09:33 AST 83 units/L (5-40) H 07/13/20 09:33 ALT 54 units/L (7-56) 07/13/20 09:33 Alkaline Phosphatase 46 units/L (35-129) 07/13/20 09:33 Ammonia 28.0 umol/L (25-60) 07/11/20 21:17 Total Creatine Kinase 188 units/L (30-135) H 07/16/20 08:26 CK-MB (CK-2) 9.2 ng/mL (0.0-4.0) H 07/12/20 15:13 CK-MB (CK-2) Rel Index 0.4 (0-4) 07/12/20 15:13 Troponin T < 0.010 ng/mL (0.00-0.029) 07/11/20 21:17 Total Protein 5.3 g/dL (6.3-8.2) L D 07/13/20 09:33 Albumin 3.0 g/dL (3.9-5) L 07/13/20 09:33 Albumin/Globulin Ratio 1.3 % 07/13/20 09:33 Urine Color Yellow (Yellow) 07/11/20 Unknown Urine Turbidity Clear (Clear) 07/11/20 Unknown Urine pH 6.0 (5.0-7.0) 07/11/20 Unknown Ur Specific [place] 1.023 (1.003-1.030) 07/11/20 Unknown Urine Protein 30 mg/dl mg/dL (Negative) 07/11/20 Unknown Urine Glucose (UA) Neg mg/dL (Negative) 07/11/20 Unknown Urine Ketones Tr mg/dL (Negative) 07/11/20 Unknown Urine Blood Neg (Negative) 07/11/20 Unknown Urine Nitrite Neg (Negative) 07/11/20 Unknown Urine Bilirubin Neg (Negative) 07/11/20 Unknown Urine Urobilinogen 2.0 mg/dL (<2.0) 07/11/20 Unknown Ur Leukocyte Esterase Neg (Negative) 07/11/20 Unknown Urine WBC (Auto) 2.0 /HPF (0.0-6.0) 07/11/20 Unknown Urine RBC (Auto) 3.0 /HPF (0.0-6.0) 07/11/20 Unknown U Epithel Cells (Auto) 3.0 /HPF (0-13.0) 07/11/20 Unknown Urine Mucus 3+ /HPF 07/11/20 Unknown Salicylates < 0.3 mg/dL (2.8-20.0) L 07/11/20 21:17 Urine Opiates Screen Presumptive negative 07/11/20 Unknown Urine Methadone Screen Presumptive negative 07/11/20 Unknown Acetaminophen 5.0 ug/mL (10.0-30.0) L 07/11/20 21:17 Ur Barbiturates Screen Presumptive negative 07/11/20 Unknown Ur Phencyclidine Scrn Presumptive negative 07/11/20 Unknown Ur Amphetamines Screen Presumptive negative 07/11/20 Unknown U Benzodiazepines Scrn Presumptive negative 07/11/20 Unknown Urine Cocaine Screen Presumptive negative 07/11/20 Unknown U Marijuana (THC) Screen Presumptive negative 07/11/20 Unknown Drugs of Abuse Note Disclamer 07/11/20 Unknown Microbiology: Microbiology 07/11/20 21:24 Peripheral/Venous Blood Culture - Preliminary NO GROWTH AFTER 4 DAYS 07/11/20 21:17 Peripheral/Venous Blood Culture - Preliminary NO GROWTH AFTER 4 DAYS [place]/IV: Voiding Method Diaper IV Catheter Type [Right Peripheral IV Forearm] IV Catheter Type [Left Hand] INT / Saline Lock Active Medications - Current Medications Current Medications: Generic Name Dose Route Start Last Admin Trade Name Freq PRN Reason Stop Dose Admin Acetaminophen 650 mg 07/12/20 01:05 07/12/20 22:08 Tylenol NM 650 mg Q4H PRN Administration Fever >101 Heparin Sodium (Porcine) 5,000 unit 07/12/20 10:00 07/16/20 10:04 Heparin SUB-Q 5,000 unit Q8H KEITH Administration Potassium Chloride 20 meq/ 1,010 mls @ 100 mls/hr 07/15/20 09:00 07/15/20 22:45 Sodium Chloride IV 100 mls/hr DIRECT KEITH Administration Potassium Chloride 10 meq in 100 mls @ 100 mls/hr 07/16/20 12:00 Kcl 10meq/100ml IV 07/16/20 15:59 Q1H KEITH Ondansetron HCl 4 mg 07/12/20 01:06 Zofran IV Q8H PRN Nausea And Vomiting Risperidone 1.5 mg 07/16/20 10:00 07/16/20 10:05 Risperdal PO 1.5 mg BID KEITH Administration Sodium Bicarbonate 650 mg 07/15/20 10:00 07/16/20 10:05 Sodium Bicarbonate PO 650 mg BID KEITH Administration Nutrition/Malnutrition Assess - Dietary Evaluation Nutrition/Malnutrition Findings: Nutrition Notes Start: 07/12/20 11:40 Freq: Status: Active Protocol: Document 07/12/20 11:41 [email or web address] (Rec: 07/12/20 12:03 [email or web address]) Co-Sign 07/12/20 11:41 LM Nutrition Notes 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 Pt is nonverbal. Spoke with RN, RN tried to feed the pt and pt would not open her mouth to eat or drink. 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 Is patient on ventilator? No Is Patient Ambulatory and/or Out of Bed No REE-([facility]-confined to bed) 7005.123 Calculation Used for Recommendations [facility] Additional Notes Protein Needs 44-55g/kg (.8-1g /kg) Fluid Needs: 1ml/kcal Nutrition Intervention Change Diet Order: Continue Add Supplement/Snack (indicate name/kcal Ensure Enlive BID /protein ) Provides kCal: 700 Provides Protein (gm) 40 Goal #1 meet at least 75% of energy and protein needs Anticipated Discharge Needs: cardiac diet Follow-Up By: 07/16/20 Additional Comments F/U for intakes & ONS tolerance
[2020-07-16] MEDS: POTASSIUM CHLORIDE 10 MEQ 10 MEQ/100 ML BAG IV SCH ×5 (12:01→17:17)
[2020-07-16] MEDS ORDERED: SODIUM CHLORIDE 0.9% 500 ML 500 ML ONE (12:03)
[2020-07-16] MEDS ORDERED: SODIUM CHLORIDE 0.9% 1000 ML 1,000 ML ONE (12:05)
[2020-07-16] MEDS ORDERED: SODIUM CHLORIDE 0.9% 500 ML IVPB IV ONE (12:41)
[2020-07-16] MEDS ORDERED: SODIUM CHLORIDE 0.9% 1000 ML 1,000 ML IV SCH (12:45)
[2020-07-16] MEDS: SODIUM CHLORIDE 0.9% 500 ML 500 ML IV SCH (17:19)
[2020-07-16] MEDS: NACL 0.9%/KCL 20 MEQ 20 MEQ/1,000 ML BAG IV SCH (20:56)
[2020-07-16] MEDS: VALPROIC ACID 250 MG/5 ML ORAL LIQD PO SCH (21:28)
[2020-07-17] MEDS: HEPARIN 5,000 UNIT/1 ML VIAL SUB-Q SCH ×3 (01:38→17:04)
[2020-07-17 06:32] LABS: Hematocrit 36.7 % (30.3-42.9); Hemoglobin 12.3 gm/dl (10.1-14.3); Mean Corpuscular HGB Conc 34 % (30-34); Mean Corpuscular Volume 95 fl (79-97); Platelet Count 337 K/mm3 (140-440); Red Blood Count 3.85 M/mm3 (3.65-5.03); Red Cell Distribution Width 13.6 % (13.2-15.2)
[2020-07-17] MEDS ORDERED: POTASSIUM PHOSPHATE 15 MMOL in SODIUM CHLORIDE 0.9% 250ML 250 ML IV ONE (09:00)
[2020-07-17] MEDS ORDERED: POTASSIUM CHLORIDE ER 20 MEQ TAB PO ONE (10:53)
--- NOTE | 2020-07-17 11:28 | Progress Note ---
Subjective - Reason for Consult Consult date: 07/17/20 Reason for consult: from [place] - Chief Complaint Chief complaint: The patient's medical record was reviewed and the patient's progress was discussed with the nursing staff. The nurse note states the patient woke up several times during the night yelling for no apparent reason. She appears to be hallucinating. Was observed reaching and grabbing things from the air. I attempted to interview the patient today. She is uncooperative. When trying to assess the patient, she kept her eyes closed, and responded "yea" when calling her name. When touching the patient's hand, she pulled away. She then started reaching in front of her in the air. REVIEW OF SYSTEMS Unable to obtain MENTAL STATUS EXAMINATION General Appearance: Dressed appropriately Behavior: Uncooperative Mood: Affect and affective range: Flat Thought Process: disorganized Thought Content: Hallucinations Speech: Nonverbal Suicidal Ideation: Homicidal Ideation: Hallucinations: A/V Delusions: none elicited Insight and Judgment: Limited Memory/Cognition: Impaired Assessment Schizoaffctive Disorder PLAN Increase Valproic acid 500mg po BID Sitter: Defer to primary Medical: Per primary Disposition: Recommend acute inpatient psychiatric treatment Will continue to follow. Thank you for this consult. Mental Status Exam - Vital signs Last Vital Signs Temp 98.0 F 07/17/20 06:56 Pulse 93 H 07/17/20 06:56 Resp 20 07/17/20 06:56 BP 119/76 07/17/20 06:56 Pulse Ox 98 07/17/20 06:56
[2020-07-17] MEDS: risperiDONE 1 MG TAB PO SCH ×2 (11:40→21:53)
[2020-07-17] MEDS: SODIUM BICARBONATE 650 MG TAB PO SCH ×2 (11:40→21:53)
[2020-07-17] MEDS: VALPROIC ACID 250 MG/5 ML ORAL LIQD PO SCH ×3 (14:50→21:53)
[2020-07-17] MEDS: NACL 0.9%/KCL 20 MEQ 20 MEQ/1,000 ML BAG IV SCH (16:42)
--- NOTE | 2020-07-17 17:30 | Progress Note ---
Assessment and Plan --Severe hypokalemia: K today is again is 3.2, We will give 40 mEq KCl IV K riders cont normal saline IV fluids 20 mEq Follow electrolytes, Magnesium within normal limits -- Rhabdomyolysis-resolved Preserved renal function, cont IV hydration Input output monitoring, monitor CK levels CK levels trending down [phone] --Schizo affective disorder; Psych evaluation and recommendations noted and appreciated. Management per psych Recommend inpatient psych placement --Acute metabolic encephalopathy /altered mental state Multifactorial , schizoaffective disorder Patient came from [place] , psych evaluation noted Recommend inpatient psych placement when medically stable --Severe dehydration; improved Improved , continue IV hydration Input output monitoring Encourage plenty oral fluids --transaminitis:- Probably secondary to rhabdo Trending down --DVT prophylaxis; Heparin subcu Closely monitor the patient and adjust management as needed Plan of care reviewed with the patient's nurse Psych recommended inpatient psych placement once medically stable Hopefully patient will be medically stable in 1 to 2 days and will plan transfer to inpatient psych Brief history: 60-year-old female patient was sent from [facility] with altered level of consciousness and poor oral intake. Patient has schizoaffective disorder with active hallucinations and confusion, Patient was noted to have rhabdomyolysis and multiple electrolyte imbalances, Rhabdomyolysis is resolved, mild hyp okalemia and hypo-phosphatemia, being corrected, Patient is waiting to be placed inpatient psych when medically stable . 07/13; patient's CK levels trending down on 1678, continue IV hydration patient is more alert at times, hallucinating Noncommunicative, severe hypokalemia, replace per protocol 07/14; potassium level significantly improved today to 3.2, replenish per protocol CK levels trending down 828, continue IV hydration, monitor electrolytes 07/15; patient refused potassium yesterday today potassium levels again 2.7 We will add KCl to IV fluids, and IV K riders, monitor electrolytes CK level 425. Refusing to eat confused noncommunicative Possible inpatient psych admission when medically stable 07/16; rhabdomyolysis resolved, mild electrolyte imbalances, if corrected medically stable for inpatient psych placement 07/17: replete K and phosphate. repeat CBc BMP tomorrow. White count needs to be < 10 for inpt psych admission Subjective Date of service: 07/17/20 Interval history: Patient seen and examined Patient's chart and medications reviewed Patient is noncommunicative, hallucinating, does not want to talk Vital signs noted Objective - Exam Narrative Exam: General appearance: Present: no acute distress, well-nourished, other (Hallucinating) - EENT Eyes: Present: PERRL, EOM intact - Neck Neck: Present: supple, normal ROM - Respiratory Respiratory effort: normal Respiratory: bilateral: diminished, negative: rales, rhonchi, wheezing - Cardiovascular Rhythm: regular Heart Sounds: Present: S1 & S2 - Extremities Extremities: no ischemia, No edema - Abdominal General gastrointestinal: soft, non-tender, non-distended, normal bowel sounds - Integumentary Integumentary: Present: clear, warm - Psychiatric Psychiatric: other (Hallucinations) - Neurologic Neurologic: other (Hallucinations) - Constitutional Vitals: Vital Signs - 12hr 07/17/20 07/17/20 07/17/20 06:56 11:41 16:36 Temperature 98.0 F 98.8 F Pulse Rate 93 H 100 H 34 L Respiratory 20 20 Rate Blood Pressure 119/76 115/68 Blood Pressure 110/55 [Left] O2 Sat by Pulse 98 96 97 Oximetry 07/17/20 16:38 Temperature 99.3 F Pulse Rate 93 H Respiratory 20 Rate Blood Pressure Blood Pressure [Left] O2 Sat by Pulse Oximetry - Labs CBC & Chem 7: 07/18/20 05:53 07/18/20 05:53 Labs: Abnormal lab results 07/17/20 07/17/20 Range/Units 05:21 05:21 WBC 12.1 H (4.5-11.0) K/mm3 Potassium 3.2 L (3.6-5.0) mmol/L Phosphorus 2.40 L (2.5-4.5) mg/dL HEART Score - HEART Score Risk factors: 1-2 risk factors Troponin: Troponin T < 0.010 ng/mL (0.00-0.029) 07/11/20 21:17 Troponin: < normal limit - Critical Actions Critical Actions: 0-3 pts:0.9-1.7%risk of adverse cardiac event.Candidate for discharge
[2020-07-18] MEDS: HEPARIN 5,000 UNIT/1 ML VIAL SUB-Q SCH ×3 (02:42→18:43)
[2020-07-18] MEDS: NACL 0.9%/KCL 20 MEQ 20 MEQ/1,000 ML BAG IV SCH (02:58)
[2020-07-18 06:36] LABS: Hematocrit 37.7 % (30.3-42.9); Hemoglobin 12.4 gm/dl (10.1-14.3); Mean Corpuscular HGB Conc 33 % (30-34); Mean Corpuscular Volume 96 fl (79-97); Platelet Count 369 K/mm3 (140-440); Red Blood Count 3.92 M/mm3 (3.65-5.03); Red Cell Distribution Width 13.5 % (13.2-15.2)
[2020-07-18 06:39] LABS: Basophils # (Auto) 0.1 K/mm3 (0.0-0.1); Basophils % (Auto) 0.5 % (0.0-1.8); Eosinophils # (Auto) 0.1 K/mm3 (0.0-0.4); Eosinophils % (Auto) 0.8 % (0.0-4.3); Lymphocytes # (Auto) 2.3 K/mm3 (1.2-5.4); Lymphocytes % (Auto) 20.1 % (13.4-35.0); Monocytes # (Auto) 0.9 K/mm3 (0.0-0.8); Monocytes % (Auto) 7.9 % (0.0-7.3)
[2020-07-18 06:57] LABS: Blood Urea Nitrogen 5 mg/dL (7-17); Calcium 8.3 mg/dL (8.4-10.2); Hemolysis Index 1
[2020-07-18 07:06] LABS: BUN/Creatinine Ratio 17
[2020-07-18] MEDS ORDERED: SODIUM CHLORIDE 0.9% 1000 ML 1,000 ML IV SCH (09:00)
[2020-07-18] MEDS ORDERED: POTASSIUM PHOSPHATE 30 MMOL in SODIUM CHLORIDE 0.9% 500 ML 500 ML IV ONE (10:00)
[2020-07-18] MEDS: SODIUM BICARBONATE 650 MG TAB PO SCH ×2 (11:05→22:32)
[2020-07-18] MEDS: risperiDONE 1 MG TAB PO SCH ×2 (11:06→22:33)
[2020-07-18] MEDS: VALPROIC ACID 250 MG/5 ML ORAL LIQD PO SCH ×3 (11:08→20:45)
[2020-07-18] MEDS ORDERED: AZITHROMYCIN 250 MG TAB PO SCH (12:00)
--- NOTE | 2020-07-18 13:08 | Progress Note ---
Subjective - Reason for Consult Consult date: 07/18/20 Reason for consult: AMS - Chief Complaint Chief complaint: The patient's medical record was reviewed and the patient's progress was discussed with the nursing staff. The nurse note states the patient laughs and yells out inappropriately. Nursing staff states the patient has been spitting meds out. I attempted to interview the patient today. She is uncooperative. The patient has this bizarre look on her face with her eyes bucked and her lips pushed out. She would not make any eye contact. She could not be engaged to complete the interview. REVIEW OF SYSTEMS Unable to obtain MENTAL STATUS EXAMINATION General Appearance: Dressed appropriately Behavior: Uncooperative Mood: Affect and affective range: Flat Thought Process: disorganized Thought Content: Hallucinations Speech: Nonverbal Suicidal Ideation: Homicidal Ideation: Hallucinations: A/V Delusions: none elicited Insight and Judgment: Limited Memory/Cognition: Impaired Assessment Schizoaffctive Disorder PLAN Increase Valproic acid 500mg po TID Increase Risperidone 2mg po BID Haldol 5mg IM q6h prn agitation or if patient does not take risperidone Start Lorazepam 0.5mg po q4h prn anxiety Sitter: Defer to primary Medical: Per primary Disposition: Recommend acute inpatient psychiatric treatment Will continue to follow. Thank you for this consult. Mental Status Exam - Vital signs Last Vital Signs Temp 97.5 F L 07/18/20 11:00 Pulse 97 H 07/18/20 11:00 Resp 18 07/18/20 11:00 BP 105/57 07/18/20 11:00 Pulse Ox 98 07/18/20 11:00
[2020-07-18] MEDS ORDERED: LORazepam 0.5 MG TAB PO PRN (13:17)
--- NOTE | 2020-07-18 14:32 | Progress Note ---
Assessment and Plan --Severe hypokalemia: K today is again is 3.2, We will give 40 mEq KCl IV K riders cont normal saline IV fluids 20 mEq Follow electrolytes, Magnesium within normal limits -- Rhabdomyolysis-resolved Preserved renal function, cont IV hydration Input output monitoring, monitor CK levels CK levels trending down [phone] --Schizo affective disorder; Psych evaluation and recommendations noted and appreciated. Management per psych Recommend inpatient psych placement --Acute metabolic encephalopathy /altered mental state Multifactorial , schizoaffective disorder Patient came from [place] , psych evaluation noted Recommend inpatient psych placement when medically stable --Severe dehydration; improved Improved , continue IV hydration Input output monitoring Encourage plenty oral fluids --transaminitis:- Probably secondary to rhabdo Trending down --DVT prophylaxis; Heparin subcu Closely monitor the patient and adjust management as needed Plan of care reviewed with the patient's nurse Psych recommended inpatient psych placement once medically stable Hopefully patient will be medically stable in 1 to 2 days and will plan transfer to inpatient psych Brief history: 60-year-old female patient was sent from [facility] with altered level of consciousness and poor oral intake. Patient has schizoaffective disorder with active hallucinations and confusion, Patient was noted to have rhabdomyolysis and multiple electrolyte imbalances, Rhabdomyolysis is resolved, mild hyp okalemia and hypo-phosphatemia, being corrected, Patient is waiting to be placed inpatient psych when medically stable . 07/13; patient's CK levels trending down on 1678, continue IV hydration patient is more alert at times, hallucinating Noncommunicative, severe hypokalemia, replace per protocol 07/14; potassium level significantly improved today to 3.2, replenish per protocol CK levels trending down 828, continue IV hydration, monitor electrolytes 07/15; patient refused potassium yesterday today potassium levels again 2.7 We will add KCl to IV fluids, and IV K riders, monitor electrolytes CK level 425. Refusing to eat confused noncommunicative Possible inpatient psych admission when medically stable 07/16; rhabdomyolysis resolved, mild electrolyte imbalances, if corrected medically stable for inpatient psych placement 07/17: replete K and phosphate. repeat CBc BMP tomorrow. White count needs to be < 10 for inpt psych admission 07/18: cont to have mildly elevated white count, c/o loose stool. will check for C. def - start flagyl and cipro Subjective Date of service: 07/18/20 Interval history: Patient seen and examined Patient's chart and medications reviewed Patient is noncommunicative, hallucinating, does not want to talk Vital signs noted - afebrile Objective - Exam Narrative Exam: General appearance: Present: no acute distress, well-nourished, other (Hallucinating) - EENT Eyes: Present: PERRL, EOM intact - Neck Neck: Present: supple, normal ROM - Respiratory Respiratory effort: normal Respiratory: bilateral: diminished, negative: rales, rhonchi, wheezing - Cardiovascular Rhythm: regular Heart Sounds: Present: S1 & S2 - Extremities Extremities: no ischemia, No edema - Abdominal General gastrointestinal: soft, non-tender, non-distended, normal bowel sounds - Integumentary Integumentary: Present: clear, warm - Psychiatric Psychiatric: other (Hallucinations) - Neurologic Neurologic: other (Hallucinations) - Constitutional Vitals: Vital Signs - 12hr 07/18/20 07/18/20 07/18/20 04:44 07:19 11:00 Temperature 97.5 F L 97.8 F 97.5 F L Pulse Rate 104 H 94 H 97 H Respiratory 18 19 18 Rate Blood Pressure 136/60 Blood Pressure 118/63 105/57 [Left] O2 Sat by Pulse 97 99 98 Oximetry - Labs CBC & Chem 7: 07/18/20 05:53 07/18/20 05:53 Labs: Abnormal lab results 07/18/20 07/18/20 Range/Units 05:53 05:53 WBC 11.6 H (4.5-11.0) K/mm3 [place] % (Auto) 7.9 H (0.0-7.3) % [place] # 0.9 H (0.0-0.8) K/mm3 Seg Neutrophils % 70.7 H (40.0-70.0) % Seg Neutrophils # 8.2 H (1.8-7.7) K/mm3 Chloride 108.3 H (98-107) mmol/L Carbon Dioxide 17 L (22-30) mmol/L BUN 5 L (7-17) mg/dL Creatinine 0.3 L (0.6-1.2) mg/dL Calcium 8.3 L (8.4-10.2) mg/dL Phosphorus 2.30 L (2.5-4.5) mg/dL HEART Score - HEART Score Risk factors: 1-2 risk factors Troponin: Troponin T < 0.010 ng/mL (0.00-0.029) 07/11/20 21:17 Troponin: < normal limit - Critical Actions Critical Actions: 0-3 pts:0.9-1.7%risk of adverse cardiac event.Candidate for discharge
[2020-07-18] MEDS ORDERED: levoFLOXacin 500 MG TAB PO SCH (15:00)
[2020-07-18] MEDS: metroNIDAZOLE 500 MG TAB PO SCH ×2 (16:25→22:33)
[2020-07-18] MEDS: HALOPERIDOL LACTATE 5 MG/1 ML INJ IM PRN (22:32)
[2020-07-19] MEDS: HEPARIN 5,000 UNIT/1 ML VIAL SUB-Q SCH ×3 (02:06→20:00)
[2020-07-19] MEDS: metroNIDAZOLE 500 MG TAB PO SCH ×3 (05:55→22:53)
[2020-07-19 09:56] LABS: Hematocrit 36.9 % (30.3-42.9); Hemoglobin 12.8 gm/dl (10.1-14.3); Mean Corpuscular HGB Conc 35 % (30-34); Mean Corpuscular Volume 95 fl (79-97); Platelet Count 396 K/mm3 (140-440); Red Cell Distribution Width 13.3 % (13.2-15.2)
[2020-07-19] MEDS: SODIUM BICARBONATE 650 MG TAB PO SCH ×2 (10:22→22:53)
[2020-07-19] MEDS: VALPROIC ACID 250 MG/5 ML ORAL LIQD PO SCH (10:22)
[2020-07-19] MEDS: risperiDONE 1 MG TAB PO SCH ×2 (12:44→22:53)
--- NOTE | 2020-07-19 12:58 | Progress Note ---
Assessment and Plan --Severe hypokalemia: repleted Follow electrolytes, Magnesium within normal limits -- Rhabdomyolysis-resolved Preserved renal function, cont IV hydration Input output monitoring, monitor CK levels CK levels trending down [phone] --Schizo affective disorder; Psych evaluation and recommendations noted and appreciated. Management per psych Recommend inpatient psych placement --Acute metabolic encephalopathy /altered mental state Multifactorial , schizoaffective disorder Patient came from [place] , psych evaluation noted Recommend inpatient psych placement when medically stable --Severe dehydration; improved Improved , continue IV hydration Input output monitoring Encourage plenty oral fluids --transaminitis:- Probably secondary to rhabdo Trending down --DVT prophylaxis; Heparin subcu Closely monitor the patient and adjust management as needed Plan of care reviewed with the patient's nurse Psych recommended inpatient psych placement once medically stable Hopefully patient will be medically stable in 1 to 2 days and will plan transfer to inpatient psych Brief history: 60-year-old female patient was sent from [facility] with altered level of consciousness and poor oral intake. Patient has schizoaffective disorder with active hallucinations and confusion, Patient was noted to have rhabdomyolysis and multiple electrolyte imbalances, Rhabdomyolysis is resolved, mild hypokalemia and hypo-phosphatemia, being corrected, Patient is waiting to be placed inpatient psych when medically stable . 07/13; patient's CK levels trending down on 1678, continue IV hydration patient is more alert at times, hallucinating Noncommunicative, severe hypokalemia, replace per protocol 07/14; potassium level significantly improved today to 3.2, replenish per protocol CK levels trending down 828, continue IV hydration, monitor electrolytes 07/15; patient refused potassium yesterday today potassium levels again 2.7 We will add KCl to IV fluids, and IV K riders, monitor electrolytes CK level 425. Refusing to eat confused noncommunicative Possible inpatient psych admission when medically stable 07/16; rhabdomyolysis resolved, mild electrolyte imbalances, if corrected medi criss stable for inpatient psych placement 07/17: replete K and phosphate. repeat CBc BMP tomorrow. White count needs to be < 10 for inpt psych admission 07/18: cont to have mildly elevated white count, c/o loose stool. will check for C. def - start flagyl and cipro 07/19: White count normal today. change medications to Po. medically stable to go for inpt psych unit. Subjective Date of service: 07/19/20 Interval history: Patient seen and examined Patient's chart and medications reviewed Patient is noncommunicative, hallucinating, does not want to talk Vital signs noted - afebrile Objective - Exam Narrative Exam: General appearance: Present: no acute distress, well-nourished, other (Hallucinating) - EENT Eyes: Present: PERRL, EOM intact - Neck Neck: Present: supple, normal ROM - Respiratory Respiratory effort: normal Respiratory: bilateral: diminished, negative: rales, rhonchi, wheezing - Cardiovascular Rhythm: regular Heart Sounds: Present: S1 & S2 - Extremities Extremities: no ischemia, No edema - Abdominal General gastrointestinal: soft, non-tender, non-distended, normal bowel sounds - Integumentary Integumentary: Present: clear, warm - Psychiatric Psychiatric: other (Hallucinations) - Neurologic Neurologic: other (Hallucinations) - Constitutional Vitals: Vital Signs - 12hr 07/19/20 07/19/20 07:04 12:10 Temperature 99.9 F H 98.1 F Pulse Rate 90 91 H Respiratory 16 18 Rate Blood Pressure 125/71 127/67 O2 Sat by Pulse 96 97 Oximetry - Labs CBC & Chem 7: 07/19/20 08:12 07/18/20 05:53 Labs: Abnormal lab results 07/19/20 07/19/20 Range/Units 08:12 08:12 MCH 33 H (28-32) pg MCHC 35 H (30-34) % Valproic Acid 7.7 L (50-100) ug/mL HEART Score - HEART Score Risk factors: 1-2 risk factors Troponin: Troponin T < 0.010 ng/mL (0.00-0.029) 07/11/20 21:17 Troponin: < normal limit - Critical Actions Critical Actions: 0-3 pts:0.9-1.7%risk of adverse cardiac event.Candidate for discharge
[2020-07-19] MEDS ORDERED: VALPROATE SODIUM 500 MG in SODIUM CHLORIDE 0.9% 100 ML IV SCH (14:00)
[2020-07-19] MEDS ORDERED: VALPROIC ACID 250 MG CAP PO SCH (14:00)
[2020-07-19] MEDS: VALPROIC ACID 250 MG CAP PO SCH ×2 (14:33→22:52)
--- NOTE | 2020-07-19 14:38 | Progress Note ---
Subjective - Reason for Consult Consult date: 07/19/20 Reason for consult: from [place] - Chief Complaint Chief complaint: The patient's medical record was reviewed and the patient's progress was discussed with the nursing staff. Nursing staff states the patient continues to spit out medication. I attempted to interview the patient today. The patient is lying in bed with her eyes partially closed. The patient has her arms drawn up close to her. When p ulling the patient's arms down, she pulls them back up. No family contacts in chart to contact family. REVIEW OF SYSTEMS Unable to obtain MENTAL STATUS EXAMINATION Unable to assess Assessment Schizoaffctive Disorder PLAN Continue current regimen Sitter: Defer to primary Medical: Per primary Disposition: Do not recommend acute inpatient psychiatric treatment at this time. It is my clinical opinion that this patient would not benefit from inpatient psychiatric services at this time. [facility] cutter care such as SNF may be more appropriate for this patient. Will sign off. Please replace consult if needed, once the patient is medically clear. Thank you for this consult. Mental Status Exam - Vital signs Last Vital Signs Temp 98.1 F 07/19/20 12:10 Pulse 91 H 07/19/20 12:10 Resp 18 07/19/20 12:10 BP 127/67 07/19/20 12:10 Pulse Ox 97 07/19/20 12:10
[2020-07-19] MEDS: D5W/0.9% NACL 1,000 ML IV SCH (15:45)
[2020-07-20] MEDS: HEPARIN 5,000 UNIT/1 ML VIAL SUB-Q SCH ×3 (02:40→18:02)
[2020-07-20] MEDS: D5W/0.9% NACL 1,000 ML IV SCH ×3 (04:15→23:43)
[2020-07-20] MEDS: HALOPERIDOL LACTATE 5 MG/1 ML INJ IM PRN (04:15)
[2020-07-20] MEDS: VALPROIC ACID 250 MG CAP PO SCH ×3 (05:32→21:49)
[2020-07-20] MEDS: metroNIDAZOLE 500 MG TAB PO SCH (05:32)
[2020-07-20] MEDS ORDERED: VANCOMYCIN 250 MG/10 ML ORAL LIQD PO SCH (10:00)
[2020-07-20] MEDS: risperiDONE 1 MG TAB PO SCH ×2 (10:14→21:50)
[2020-07-20] MEDS: SODIUM BICARBONATE 650 MG TAB PO SCH ×2 (10:27→21:50)
[2020-07-20] MEDS: VANCOMYCIN 250 MG/10 ML ORAL LIQD PO SCH ×3 (10:27→23:45)
--- NOTE | 2020-07-20 13:38 | Progress Note ---
Assessment and Plan -- C. def colitis change abx to vancomycin po --Severe hypokalemia: repleted Follow electrolytes, Magnesium within normal limits -- Rhabdomyolysis-resolved Preserved renal function, cont IV hydration Input output monitoring, monitor CK levels CK levels trending down [phone] --Schizo affective disorder; Psych evaluation and recommendations noted and appreciated. patient refusing meds and oral diet Management per psych, Recommend outpt f/u --Acute metabolic encephalopathy /altered mental state Multifactorial , schizoaffective disorder Patient came from [place], psych evaluation noted Psych now recommended for outpt f/u --Severe dehydration; improved Improved , continue IV hydration Input output monitoring Encourage plenty oral fluids --transaminitis:- Probably secondary to rhabdo, Trended down --DVT prophylaxis; Heparin subcu Closely monitor the patient and adjust management as needed Plan of care reviewed with the patient's nurse Psych recommended outpt f/u Brief history: 60-year-old female patient was sent from [facility] with altered level of consciousness and poor oral intake. Patient has schizoaffective disorder with active hallucinations and confusion, Patient was noted to have rhabdomyolysis and multiple electrolyte imbalances, Rhabdomyolysis is resolved, mild hypokalemia and hypo-phosphatemia - corrected. Then she developed diarrhea - now positive for C. def 07/13; patient's CK levels trending down on 1678, continue IV hydration patient is more alert at times, hallucinating Noncommunicative, severe hypokalemia, replace per protocol 07/14; potassium level significantly improved today to 3.2, replenish per protocol. CK levels trending down 828, continue IV hydration, monitor electrolytes 07/15; patient refused potassium yesterday today potassium levels again 2.7 We will add KCl to IV fluids, and IV K riders, monitor electrolytes. CK level 425. Refusing to eat confused noncommunicative. Possible inpatient psych admission when medically stable 07/16; rhabdomyolysis resolved, mild electrolyte imbalances, if corrected medically stable for inpatient psych placement 07/17: replete K and phosphate. repeat CBc BMP tomorrow. White count needs to be < 10 for inpt psych admission 07/18: cont to have mildly elevated white count, c/o loose stool. will check for C. def - start flagyl and cipro 07/19: White count normal today. change medications to Po. medically stable to go for inpt psych unit. 07/20; positive for C. def. patient not eating properly, refusing meds time to time. Psych now recommended outpt f/u. CM working on placement. Patient remains nonverbal, does not follow any commend and not giving any personal info. Subjective Date of service: 07/20/20 Interval history: Patient seen and examined Patient's chart and medications reviewed Patient is noncommunicative, hallucinating, does not want to talk Vital signs noted - afebrile Objective - Exam Narrative Exam: General appearance: Present: no acute distress, lying on bed closing her eyes - Neck Neck: Present: supple, normal ROM - Respiratory Respiratory effort: normal Respiratory: bilateral: diminished, negative: rales, rhonchi, wheezing - Cardiovascular Rhythm: regular Heart Sounds: Present: S1 & S2 - Extremities Extremities: no ischemia, No edema - Abdominal General gastrointestinal: soft, non-tender, non-distended, normal bowel sounds - Integumentary Integumentary: Present: clear, warm - Psychiatric Psychiatric: nonververbal - Neurologic Neurologic: no focal deficit - Labs CBC & Chem 7: 07/19/20 08:12 07/21/20 06:35 HEART Score - HEART Score Risk factors: 1-2 risk factors Troponin: Troponin T < 0.010 ng/mL (0.00-0.029) 07/11/20 21:17 Troponin: < normal limit - Critical Actions Critical Actions: 0-3 pts:0.9-1.7%risk of adverse cardiac event.Candidate for discharge
[2020-07-21] MEDS: VANCOMYCIN 250 MG/10 ML ORAL LIQD PO SCH ×4 (00:20→17:14)
[2020-07-21] MEDS: VALPROIC ACID 250 MG CAP PO SCH ×4 (00:20→21:42)
[2020-07-21] MEDS: risperiDONE 1 MG TAB PO SCH ×3 (00:20→21:42)
[2020-07-21] MEDS: HEPARIN 5,000 UNIT/1 ML VIAL SUB-Q SCH ×3 (02:26→17:14)
[2020-07-21 07:41] LABS: Blood Urea Nitrogen 2 mg/dL (7-17); Hemolysis Index 3
[2020-07-21 07:54] LABS: BUN/Creatinine Ratio 10
[2020-07-21] MEDS: SODIUM BICARBONATE 650 MG TAB PO SCH ×2 (09:09→21:42)
[2020-07-21] MEDS: D5W/0.9% NACL 1,000 ML IV SCH (09:26)
[2020-07-21] MEDS: HALOPERIDOL LACTATE 5 MG/1 ML INJ IM PRN ×2 (09:26→22:06)
[2020-07-21] MEDS ORDERED: POTASSIUM CHLORIDE ER 20 MEQ TAB PO SCH (10:00)
[2020-07-21] MEDS: POTASSIUM CHLORIDE 10 MEQ 10 MEQ/100 ML BAG IV SCH ×3 (10:23→14:17)
--- NOTE | 2020-07-21 13:08 | Progress Note ---
Assessment and Plan -- C. def colitis change abx to vancomycin po --Severe hypokalemia: repleted Follow electrolytes, Magnesium within normal limits -- Rhabdomyolysis-resolved Preserved renal function, cont IV hydration Input output monitoring, monitor CK levels CK levels trending down [phone] --Schizo affective disorder; Psych evaluation and recommendations noted and appreciated. patient refusing meds and oral diet Management per psych, Recommend outpt f/u --Acute metabolic encephalopathy /altered mental state Multifactorial , schizoaffective disorder Patient came from [place], psych evaluation noted Psych now recommended for outpt f/u --Severe dehydration; improved Improved , continue IV hydration Input output monitoring Encourage plenty oral fluids --transaminitis:- Probably secondary to rhabdo, Trended down --DVT prophylaxis; Heparin subcu Closely monitor the patient and adjust management as needed Plan of care reviewed with the patient's nurse Psych recommended outpt f/u Brief history: 60-year-old female patient was sent from [facility] with altered level of consciousness and poor oral intake. Patient has schizoaffective disorder with active hallucinations and confusion, Patient was noted to have rhabdomyolysis and multiple electrolyte imbalances, Rhabdomyolysis is resolved, mild hypokalemia and hypo-phosphatemia - corrected. Then she developed diarrhea - now positive for C. def 07/13; patient's CK levels trending down on 1678, continue IV hydration patient is more alert at times, hallucinating Noncommunicative, severe hypokalemia, replace per protocol 07/14; potassium level significantly improved today to 3.2, replenish per protocol. CK levels trending down 828, continue IV hydration, monitor electrolytes 07/15; patient refused potassium yesterday today potassium levels again 2.7 We will add KCl to IV fluids, and IV K riders, monitor electrolytes. CK level 425. Refusing to eat confused noncommunicative. Possible inpatient psych admission when medically stable 07/16; rhabdomyolysis resolved, mild electrolyte imbalances, if corrected medically stable for inpatient psych placement 07/17: replete K and phosphate. repeat CBc BMP tomorrow. White count needs to be < 10 for inpt psych admission 07/18: cont to have mildly elevated white count, c/o loose stool. will check for C. def - start flagyl and cipro 07/19: White count normal today. change medications to Po. medically stable to go for inpt psych unit. 07/20; positive for C. def. patient not eating properly, refusing meds time to time. Psych now recommended outpt f/u. CM working on placement. Patient remains nonverbal, does not follow any commend and not giving any personal info. 07/21; K 2.0 today, cont to replete, follow BMP, patient remains nonverbal and not cooperative. refuses to eat and meds. cont d51/2NS. if condition doesnot improve will consider TF Subjective Date of service: 07/21/20 Interval history: Patient seen and examined Patient's chart and medications reviewed Patient is noncommunicative, does not want to talk Vital signs noted - afebrile Per RN patient is not eating and refusing meds Objective - Exam Narrative Exam: General appearance: Present: no acute distress, lying on bed closing her eyes - Neck Neck: Present: supple, normal ROM - Respiratory Respiratory effort: normal Respiratory: bilateral: diminished, negative: rales, rhonchi, wheezing - Cardiovascular Rhythm: regular Heart Sounds: Present: S1 & S2 - Extremities Extremities: no ischemia, No edema - Abdominal General gastrointestinal: soft, non-tender, non-distended, normal bowel sounds - Integumentary Integumentary: Present: clear, warm - Psychiatric Psychiatric: nonververbal - Neurologic Neurologic: no focal deficit - Constitutional Vitals: Vital Signs - 12hr 07/21/20 07/21/20 06:48 11:30 Temperature 98.4 F 98.0 F Pulse Rate 79 68 Respiratory 20 18 Rate Blood Pressure 101/62 112/70 O2 Sat by Pulse 95 96 Oximetry - Labs CBC & Chem 7: 07/19/20 08:12 07/21/20 06:35 Labs: Abnormal lab results 07/21/20 Range/Units 06:35 Sodium 146 H (137-145) mmol/L Potassium 2.0 L* D (3.6-5.0) mmol/L BUN 2 L (7-17) mg/dL Creatinine 0.2 L (0.6-1.2) mg/dL Glucose 139 H (65-100) mg/dL Calcium 8.0 L (8.4-10.2) mg/dL HEART Score - HEART Score Risk factors: 1-2 risk factors Troponin: Troponin T < 0.010 ng/mL (0.00-0.029) 07/11/20 21:17 Troponin: < normal limit - Critical Actions Critical Actions: 0-3 pts:0.9-1.7%risk of adverse cardiac event.Candidate for discharge
[2020-07-21] MEDS: D5W/0.45% NACL/KCL 20 MEQ 20 MEQ/1,000 ML BAG IV SCH (16:57)
[2020-07-22] MEDS: VANCOMYCIN 250 MG/10 ML ORAL LIQD PO SCH ×5 (00:22→23:33)
[2020-07-22] MEDS: D5W/0.45% NACL/KCL 20 MEQ 20 MEQ/1,000 ML BAG IV SCH ×2 (03:09→17:30)
[2020-07-22] MEDS: HEPARIN 5,000 UNIT/1 ML VIAL SUB-Q SCH ×3 (03:09→17:24)
[2020-07-22] MEDS: VALPROIC ACID 250 MG CAP PO SCH (05:58)
[2020-07-22] MEDS ORDERED: LIPASE 10,500/PROTEASE 25,000/AMYLASE 43,750 (UNITS) DR CAP FEEDTUBE PRN (07:44)
[2020-07-22] MEDS ORDERED: SODIUM BICARBONATE 325 MG TAB FEEDTUBE PRN (07:44)
[2020-07-22] MEDS ORDERED: SIMPLE SYRUP 15 ML FEEDTUBE PRN ×2 (07:44)
[2020-07-22 08:30] LABS: Calcium 8.4 mg/dL (8.4-10.2); Hemolysis Index 7
[2020-07-22 08:35] LABS: BUN/Creatinine Ratio 5; Blood Urea Nitrogen < 1 mg/dL (7-17)
[2020-07-22] MEDS ORDERED: MAGNESIUM SULFATE 2 GM/50 ML BAG IV ONE (10:00)
[2020-07-22] MEDS ORDERED: POTASSIUM CHLORIDE 20 MEQ PACKET FEEDTUBE SCH (10:00)
--- NOTE | 2020-07-22 11:08 | Progress Note ---
Assessment and Plan -- C. def colitis changed abx to vancomycin po for 2 weeks total --Severe hypokalemia: Follow electrolytes, replete and monitor BMP as needed --Hypomagnesemia, replete and monitor level -- Rhabdomyolysis-resolved Preserved renal function, cont IV hydration Input output monitoring, monitor CK levels CK levels trending down [phone] --Schizo affective disorder; Psych evaluation and recommendations noted and appreciated. patient refusing meds and oral diet Management per psych, Recommend outpt f/u --Acute metabolic encephalopathy /altered mental state Multifactorial , schizoaffective disorder Patient came from [place], psych evaluation noted Psych now recommended for outpt f/u --Severe dehydration; improved Improved , continue IV hydration Input output monitoring Encourage plenty oral fluids --transaminitis:- Probably secondary to rhabdo, Trended down --Poor oral intake with electrolyte imbalance Will add Megace and start on tube feeding --DVT prophylaxis; Heparin subcu Closely monitor the patient and adjust management as needed Plan of care reviewed with the patient's nurse Psych recommended outpt f/u Brief history: 60-year-old female patient was sent from [facility] with altered level of consciousness and poor oral intake. Patient has schizoaffective disorder with active hallucinations and confusion, Patient was noted to have rhabdomyolysis and multiple electrolyte imbalances, Rhabdomyolysis is resolved, mild hypokalemia and hypo-phosphatemia - corrected. Then she developed diarrhea - now positive for C. def 07/13; patient's CK levels trending down on 1678, continue IV hydration patient is more alert at times, hallucinating Noncommunicative, severe hypokalemia, replace per protocol 07/14; potassium level significantly improved today to 3.2, replenish per protocol. CK levels trending down 828, continue IV hydration, monitor electrolytes 07/15; patient refused potassium yesterday today potassium levels again 2.7 We will add KCl to IV fluids, and IV K riders, monitor electrolytes. CK level 425. Refusing to eat confused noncommunicative. Possible inpatient psych admission when medically stable 07/16; rhabdomyolysis resolved, mild electrolyte imbalances, if corrected medically stable for inpatient psych placement 07/17: replete K and phosphate. repeat CBc BMP tomorrow. White count needs to be < 10 for inpt psych admission 07/18: cont to have mildly elevated white count, c/o loose stool. will check for C. def - start flagyl and cipro 07/19: White count normal today. change medications to Po. medically stable to go for inpt psych unit. 07/20; positive for C. def. patient not eating properly, refusing meds time to time. Psych now recommended outpt f/u. CM working on placement. Patient remains nonverbal, does not follow any commend and not giving any personal info. 07/21; K 2.0 today, cont to replete, follow BMP, patient remains nonverbal and not cooperative. refuses to eat and meds. cont d51/2NS. if condition doesnot improve will consider TF 07/22: Potassium level persistently remains low, magnesium 1.6 today. Will reple te magnesium and potassium. Patient refusing meds and not eating at all per RN report. Totally noncooperative during the encounternot respond to any question. Keeps her eye closing and covering her face with her forearm. Will order for tube feeding and Dobbhoff tube. Continue to follow. We will also add Megace to boost appetite. Subjective Date of service: 07/22/20 Interval history: Patient seen and examined Patient's chart and medications reviewed Patient is noncommunicative, does not want to talk Vital signs noted - afebrile Per RN patient is not eating and refusing meds Potassium level persistently remains low, magnesium 1.6 today Objective - Exam Narrative Exam: General appearance: Present: no acute distress, lying on bed closing her eyes - Neck Neck: Present: supple, normal ROM - Respiratory Respiratory effort: normal Respiratory: bilateral: diminished, negative: rales, rhonchi, wheezing - Cardiovascular Rhythm: regular Heart Sounds: Present: S1 & S2 - Extremities Extremities: no ischemia, No edema - Abdominal General gastrointestinal: soft, non-tender, non-distended, normal bowel sounds - Integumentary Integumentary: Present: clear, warm - Psychiatric Psychiatric: nonververbal - Neurologic Neurologic: no focal deficit - Constitutional Vitals: Vital Signs - 12hr 07/22/20 06:15 Temperature 97.5 F L Pulse Rate 71 Respiratory 16 Rate Blood Pressure 108/63 O2 Sat by Pulse 99 Oximetry - Labs CBC & Chem 7: 07/19/20 08:12 07/22/20 06:59 Labs: Abnormal lab results 07/22/20 Range/Units 06:59 Potassium 2.2 L* (3.6-5.0) mmol/L Carbon Dioxide 32 H (22-30) mmol/L BUN < 1 L (7-17) mg/dL Creatinine 0.2 L (0.6-1.2) mg/dL Glucose 130 H (65-100) mg/dL Magnesium 1.60 L (1.7-2.3) mg/dL HEART Score - HEART Score Risk factors: 1-2 risk factors Troponin: Troponin T < 0.010 ng/mL (0.00-0.029) 07/11/20 21:17 Troponin: < normal limit - Critical Actions Critical Actions: 0-3 pts:0.9-1.7%risk of adverse cardiac event.Candidate for discharge
--- NOTE | 2020-07-22 12:14 | XRay Report ---
SUPINE ABDOMEN INDICATION: dobhoff placement. COMPARISON: No relevant prior imaging study available. FINDINGS: Feeding tube is doubled back on itself in the stomach with tip at the fundus. IMPRESSION: 1. Feeding tube as above. Signer Name: Richard Burkett MD Signed: 07/22/2020 12:09 PM Workstation Name: [id number]
[2020-07-22] MEDS: MEGESTROL 400 MG/10 ML ORAL LIQD PO SCH (12:57)
[2020-07-22] MEDS: POTASSIUM CHLORIDE 20 MEQ PACKET FEEDTUBE SCH (12:57)
[2020-07-22] MEDS: risperiDONE 1 MG TAB PO SCH ×2 (12:58→21:12)
[2020-07-22] MEDS: VALPROIC ACID 250 MG/5 ML ORAL LIQD FEEDTUBE SCH ×2 (13:09→21:13)
[2020-07-23] MEDS: HEPARIN 5,000 UNIT/1 ML VIAL SUB-Q SCH ×3 (00:59→18:28)
[2020-07-23] MEDS: VALPROIC ACID 250 MG/5 ML ORAL LIQD FEEDTUBE SCH ×3 (05:57→21:36)
[2020-07-23] MEDS: VANCOMYCIN 250 MG/10 ML ORAL LIQD PO SCH ×3 (05:57→18:44)
[2020-07-23] MEDS: D5W/0.45% NACL/KCL 20 MEQ 20 MEQ/1,000 ML BAG IV SCH (06:02)
[2020-07-23 08:18] LABS: Hemolysis Index 6
[2020-07-23 08:19] LABS: BUN/Creatinine Ratio 3; Blood Urea Nitrogen < 1 mg/dL (7-17)
[2020-07-23] MEDS ORDERED: SODIUM CHLORIDE 0.45% 1000 ML 1,000 ML IV SCH (09:00)
[2020-07-23] MEDS ORDERED: D5W/0.45% NACL/KCL 20 MEQ 20 MEQ/1,000 ML BAG IV SCH (09:00)
[2020-07-23] MEDS: INSULIN REGULAR, HUMAN 100 UNIT/ML 3ML VIAL SUB-Q SCH ×3 (09:10→18:00)
[2020-07-23] MEDS: risperiDONE 1 MG TAB PO SCH ×2 (09:14→21:36)
[2020-07-23] MEDS: POTASSIUM CHLORIDE 20 MEQ PACKET FEEDTUBE SCH (09:14)
[2020-07-23] MEDS: MEGESTROL 400 MG/10 ML ORAL LIQD PO SCH (09:15)
[2020-07-23 11:35] LABS: Blood Urea Nitrogen 2 mg/dL (7-17); Calcium 8.3 mg/dL (8.4-10.2); Hemolysis Index 13
[2020-07-23 11:37] LABS: BUN/Creatinine Ratio 10
--- NOTE | 2020-07-23 16:20 | Progress Note ---
Assessment and Plan -- C. def colitis changed abx to vancomycin po for 2 weeks total --Severe hypokalemia: Follow electrolytes, replete and monitor BMP as needed --Hypomagnesemia, replete and monitor level -- Rhabdomyolysis-resolved Preserved renal function, cont IV hydration Input output monitoring, monitor CK levels CK levels trending down [phone] --Schizo affective disorder; Psych evaluation and recommendations noted and appreciated. patient refusing meds and oral diet Management per psych, Recommend outpt f/u --Acute metabolic encephalopathy /altered mental state Multifactorial , schizoaffective disorder Patient came from [place], psych evaluation noted Psych now recommended for outpt f/u --Severe dehydration; improved Improved , continue IV hydration Input output monitoring Encourage plenty oral fluids --transaminitis:- Probably secondary to rhabdo, Trended down --Poor oral intake with electrolyte imbalance Will add Megace and start on tube feeding --DVT prophylaxis; Heparin subcu Closely monitor the patient and adjust management as needed Plan of care reviewed with the patient's nurse Psych recommended outpt f/u Brief history: 60-year-old female patient was sent from [facility] with altered level of consciousness and poor oral intake. Patient has schizoaffective disorder with active hallucinations and confusion, Patient was noted to have rhabdomyolysis and multiple electrolyte imbalances, Rhabdomyolysis is resolved, mild hypokalemia and hypo-phosphatemia - corrected. Then she developed diarrhea - now positive for C. def 07/13; patient's CK levels trending down on 1678, continue IV hydration patient is more alert at times, hallucinating Noncommunicative, severe hypokalemia, replace per protocol 07/14; potassium level significantly improved today to 3.2, replenish per protocol. CK levels trending down 828, continue IV hydration, monitor electrolytes 07/15; patient refused potassium yesterday today potassium levels again 2.7 We will add KCl to IV fluids, and IV K riders, monitor electrolytes. CK level 425. Refusing to eat confused noncommunicative. Possible inpatient psych admission when medically stable 07/16; rhabdomyolysis resolved, mild electrolyte imbalances, if corrected medically stable for inpatient psych placement 07/17: replete K and phosphate. repeat CBc BMP tomorrow. White count needs to be < 10 for inpt psych admission 07/18: cont to have mildly elevated white count, c/o loose stool. will check for C. def - start flagyl and cipro 07/19: White count normal today. change medications to Po. medically stable to go for inpt psych unit. 07/20; positive for C. def. patient not eating properly, refusing meds time to time. Psych now recommended outpt f/u. CM working on placement. Patient remains nonverbal, does not follow any commend and not giving any personal info. 07/21; K 2.0 today, cont to replete, follow BMP, patient remains nonverbal and not cooperative. refuses to eat and meds. cont d51/2NS. if condition doesnot improve will consider TF 07/22: Potassium level persistently remains low, magnesium 1.6 today. Will reple te magnesium and potassium. Patient refusing meds and not eating at all per RN report. Totally noncooperative during the encounternot respond to any question. Keeps her eye closing and covering her face with her forearm. Will order for tube feeding and Dobbhoff tube. Continue to follow. We will also add Megace to boost appetite. 07/23: started on TF, follow BMP, change iv fluid to 1/2 NS. patient remains nonverbal Subjective Date of service: 07/23/20 Interval history: Patient seen and examined Patient's chart and medications reviewed Patient is noncommunicative, does not want to talk Vital signs noted - afebrile Dobhoff in place Potassium level persistently remains low, magnesium 1.6 today Objective - Exam Narrative Exam: General appearance: Present: no acute distress, lying on bed closing her eyes - Neck Neck: Present: supple, normal ROM - Respiratory Respiratory effort: normal Respiratory: bilateral: diminished, negative: rales, rhonchi, wheezing - Cardiovascular Rhythm: regular Heart Sounds: Present: S1 & S2 - Extremities Extremities: no ischemia, No edema - Abdominal General gastrointestinal: soft, non-tender, non-distended, normal bowel sounds - Integumentary Integumentary: Present: clear, warm - Psychiatric Psychiatric: nonververbal - Neurologic Neurologic: no focal deficit - Constitutional Vitals: Vital Signs - 12hr 07/23/20 04:56 Temperature 98.5 F Pulse Rate 87 Respiratory 18 Rate Blood Pressure 105/72 O2 Sat by Pulse 96 Oximetry - Labs CBC & Chem 7: 07/19/20 08:12 07/23/20 10:58 Labs: Abnormal lab results 07/23/20 07/23/20 07/23/20 Range/Units 07:27 10:58 11:16 Sodium 146 H (137-145) mmol/L Potassium 3.5 L D (3.6-5.0) mmol/L Carbon Dioxide 31 H (22-30) mmol/L BUN < 1 L 2 L (7-17) mg/dL Creatinine 0.4 L D 0.2 L (0.6-1.2) mg/dL Glucose 574 H* 112 H (65-100) mg/dL POC Glucose 111 H (70-105) Calcium 7.0 L D 8.3 L D (8.4-10.2) mg/dL HEART Score - HEART Score Risk factors: 1-2 risk factors Troponin: Troponin T < 0.010 ng/mL (0.00-0.029) 07/11/20 21:17 Troponin: < normal limit - Critical Actions Critical Actions: 0-3 pts:0.9-1.7%risk of adverse cardiac event.Candidate for discharge
[2020-07-24] MEDS: INSULIN REGULAR, HUMAN 100 UNIT/ML 3ML VIAL SUB-Q SCH ×4 (00:55→18:24)
[2020-07-24] MEDS: VANCOMYCIN 250 MG/10 ML ORAL LIQD PO SCH ×4 (01:23→18:36)
[2020-07-24] MEDS: HEPARIN 5,000 UNIT/1 ML VIAL SUB-Q SCH ×3 (01:24→18:36)
[2020-07-24] MEDS: SODIUM CHLORIDE 0.45% 1000 ML 1,000 ML IV SCH (01:38)
[2020-07-24] MEDS: VALPROIC ACID 250 MG/5 ML ORAL LIQD FEEDTUBE SCH ×3 (06:06→22:42)
[2020-07-24 06:45] LABS: Blood Urea Nitrogen 10 mg/dL (7-17); Calcium 8.5 mg/dL (8.4-10.2); Hemolysis Index 10
[2020-07-24 06:50] LABS: BUN/Creatinine Ratio 33
[2020-07-24] MEDS ORDERED: POTASSIUM CHLORIDE ER 20 MEQ TAB PO SCH (10:00)
[2020-07-24] MEDS: POTASSIUM CHLORIDE 20 MEQ PACKET FEEDTUBE SCH (10:32)
[2020-07-24] MEDS: MEGESTROL 400 MG/10 ML ORAL LIQD PO SCH (10:32)
[2020-07-24] MEDS: risperiDONE 1 MG TAB PO SCH ×2 (10:32→22:42)
--- NOTE | 2020-07-24 14:26 | Progress Note ---
Assessment and Plan -- C. def colitis changed abx to vancomycin po for 2 weeks total --Severe hypokalemia: Follow electrolytes, replete and monitor BMP as needed --Hypomagnesemia, replete and monitor level -- Rhabdomyolysis-resolved Preserved renal function, cont IV hydration Input output monitoring, monitor CK levels CK levels trending down [phone] --Schizo affective disorder; Psych evaluation and recommendations noted and appreciated. patient refusing meds and oral diet Management per psych, Recommend outpt f/u --Acute metabolic encephalopathy /altered mental state Multifactorial , schizoaffective disorder Patient came from [place], psych evaluation noted Psych now recommended for outpt f/u --Severe dehydration; improved Improved , continue IV hydration Input output monitoring Encourage plenty oral fluids --transaminitis:- Probably secondary to rhabdo, Trended down --Poor oral intake with electrolyte imbalance Will add Megace and start on tube feeding --DVT prophylaxis; Heparin subcu Closely monitor the patient and adjust management as needed Plan of care reviewed with the patient's nurse Psych recommended outpt f/u Brief history: 60-year-old female patient was sent from [facility] with altered level of consciousness and poor oral intake. Patient has schizoaffective disorder with active hallucinations and confusion, Patient was noted to have rhabdomyolysis and multiple electrolyte imbalances, Rhabdomyolysis is resolved, mild hypokalemia and hypo-phosphatemia - corrected. Then she developed diarrhea - now positive for C. def 07/13; patient's CK levels trending down on 1678, continue IV hydration patient is more alert at times, hallucinating Noncommunicative, severe hypokalemia, replace per protocol 07/14; potassium level significantly improved today to 3.2, replenish per protocol. CK levels trending down 828, continue IV hydration, monitor electrolytes 07/15; patient refused potassium yesterday today potassium levels again 2.7 We will add KCl to IV fluids, and IV K riders, monitor electrolytes. CK level 425. Refusing to eat confused noncommunicative. Possible inpatient psych admission when medically stable 07/16; rhabdomyolysis resolved, mild electrolyte imbalances, if corrected medically stable for inpatient psych placement 07/17: replete K and phosphate. repeat CBc BMP tomorrow. White count needs to be < 10 for inpt psych admission 07/18: cont to have mildly elevated white count, c/o loose stool. will check for C. def - start flagyl and cipro 07/19: White count normal today. change medications to Po. medically stable to go for inpt psych unit. 07/20; positive for C. def. patient not eating properly, refusing meds time to time. Psych now recommended outpt f/u. CM working on placement. Patient remains nonverbal, does not follow any commend and not giving any personal info. 07/21; K 2.0 today, cont to replete, follow BMP, patient remains nonverbal and not cooperative. refuses to eat and meds. cont d51/2NS. if condition doesnot improve will consider TF 07/22: Potassium level persistently remains low, magnesium 1.6 today. Will reple te magnesium and potassium. Patient refusing meds and not eating at all per RN report. Totally noncooperative during the encounternot respond to any question. Keeps her eye closing and covering her face with her forearm. Will order for tube feeding and Dobbhoff tube. Continue to follow. We will also add Megace to boost appetite. 07/23: started on TF, follow BMP, change iv fluid to 1/2 NS. patient remains nonverbal 07/24; clinically unchanged, replete K, iv fluid and TF. reconsult psych as patient remains in catatonic phase Subjective Date of service: 07/24/20 Interval history: Patient seen and examined Patient's chart and medications reviewed Patient is noncommunicative, does not want to talk Vital signs noted - afebrile Dobhoff in place Potassium level persistently remains low, magnesium 1.6 today Objective - Exam Narrative Exam: General appearance: Present: no acute distress, lying on bed closing her eyes - Neck Neck: Present: supple, normal ROM - Respiratory Respiratory effort: normal Respiratory: bilateral: diminished, negative: rales, rhonchi, wheezing - Cardiovascular Rhythm: regular Heart Sounds: Present: S1 & S2 - Extremities Extremities: no ischemia, No edema - Abdominal General gastrointestinal: soft, non-tender, non-distended, normal bowel sounds - Integumentary Integumentary: Present: clear, warm - Psychiatric Psychiatric: nonververbal - Neurologic Neurologic: no focal deficit - Constitutional Vitals: Vital Signs - 12hr 07/24/20 07/24/20 05:43 11:48 Temperature 98.4 F 98.6 F Pulse Rate 93 H 95 H Respiratory 16 20 Rate Blood Pressure 99/64 88/58 O2 Sat by Pulse 96 89 Oximetry - Labs CBC & Chem 7: 07/19/20 08:12 07/25/20 09:53 Labs: Abnormal lab results 07/23/20 07/23/20 07/24/20 Range/Units 16:50 22:33 06:00 Sodium 146 H (137-145) mmol/L Potassium 3.0 L (3.6-5.0) mmol/L Carbon Dioxide 31 H (22-30) mmol/L Creatinine 0.3 L (0.6-1.2) mg/dL Glucose 140 H (65-100) mg/dL POC Glucose 137 H 153 H (70-105) 07/24/20 07/24/20 Range/Units 08:47 12:04 Sodium (137-145) mmol/L Potassium (3.6-5.0) mmol/L Carbon Dioxide (22-30) mmol/L Creatinine (0.6-1.2) mg/dL Glucose (65-100) mg/dL POC Glucose 118 H 126 H (70-105) HEART Score - HEART Score Risk factors: 1-2 risk factors Troponin: Troponin T < 0.010 ng/mL (0.00-0.029) 07/11/20 21:17 Troponin: < normal limit - Critical Actions Critical Actions: 0-3 pts:0.9-1.7%risk of adverse cardiac event.Candidate for discharge
[2020-07-25] MEDS: VANCOMYCIN 250 MG/10 ML ORAL LIQD PO SCH ×4 (00:20→18:33)
[2020-07-25] MEDS: INSULIN REGULAR, HUMAN 100 UNIT/ML 3ML VIAL SUB-Q SCH ×4 (00:21→22:22)
[2020-07-25] MEDS: HEPARIN 5,000 UNIT/1 ML VIAL SUB-Q SCH ×2 (01:45→09:58)
[2020-07-25] MEDS: VALPROIC ACID 250 MG/5 ML ORAL LIQD FEEDTUBE SCH ×2 (06:01→22:26)
[2020-07-25] MEDS: SODIUM CHLORIDE 0.45% 1000 ML 1,000 ML IV SCH (07:30)
[2020-07-25] MEDS: POTASSIUM CHLORIDE 20 MEQ PACKET FEEDTUBE SCH (09:57)
[2020-07-25] MEDS: risperiDONE 1 MG TAB PO SCH (09:57)
[2020-07-25] MEDS: MEGESTROL 400 MG/10 ML ORAL LIQD PO SCH (09:58)
--- NOTE | 2020-07-25 10:14 | Progress Note ---
Subjective - Reason for Consult Consult date: 07/25/20 Reason for consult: MHE Requesting physician: ARACELI CABRERA - Chief Complaint Chief complaint: Floor Nurse Note: Received in bed with eyes closed.Open eyes when touch, stiffened when touch. Non verbal with staff. On remote tele in NSR. Dobhoff tube with Osmolyte at 35ml/hr. Does not appear to be in pain. No distress noted. Will continue to monitor. Psych Progress I attempted to interview the patient today, patient seen in bed sleeping deeply, not alert to loud verbal stimuli, seen on parental nutrition, oxygen and without restraints. I reviewed patient labs and records, hypokalemia at 3.0, laboratory abnormalites, multiple comorbid and cannot assume pts behavior confusion is attributed to a psychiatric disorder based on reviews of admission notes and previous psych evaluation. Will attempt to evluate patient again but cannot recommend inpatient. Multifactoral behavioral disorder suspected. No family contacts in chart to contact family. REVIEW OF SYSTEMS Unable to obtain MENTAL STATUS EXAMINATION Unable to assess Assessment and Plan - Patient Problems (1) Delirium due to another medical condition, persistent, mixed level of activity Current Visit: Yes Status: Acute Treatment Plan Patient is suffering multiple comorbid and medically induced delirirum/ spychosis of mixed episodes based on review of labs, pts history and current presentation. Though patient was transferred Acute psych facility where she progressively worsened medically, I do not believe another inpatient psych management is highly beneficial to improve overall health outcomes. MEDICATIONS: Stop risperidone, start Olazanpine, reduced valproate acid to 250 mg BID due to side effects at higher does that could worsen pts delirium. Risks, benefits and alternatives of medications discussed with the patient, questions answered and consent obtained from patient. PSYCHOTHERAPY: Supportive psychotherapy provided MEDICAL: Per primary team DELIRIUM PRECAUTIONS: Please re-orient patient frequently, keep lights on during the day, and minimize benzodiazepines and opiates as these medications could worsen patient's confusion. 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 Please contact with any questions and/or concerns. Mental Status Exam - Vital signs Last Vital Signs Temp 98.0 F 07/25/20 04:21 Pulse 98 H 07/24/20 21:25 Resp 16 07/25/20 04:21 BP 88/49 07/25/20 04:21 Pulse Ox 96 07/24/20 21:25 Assessment and Plan - Patient Problems (1) Delirium due to another medical condition, persistent, mixed level of activity Current Visit: Yes Status: Acute
[2020-07-25 11:20] LABS: Blood Urea Nitrogen 7 mg/dL (7-17); Calcium 8.2 mg/dL (8.4-10.2); Hemolysis Index 84
[2020-07-25 11:39] LABS: BUN/Creatinine Ratio 35
--- NOTE | 2020-07-25 14:38 | Progress Note ---
Assessment and Plan -- C. def colitis changed abx to vancomycin po for 2 weeks total - 08/03/20 end date --Severe hypokalemia: Follow electrolytes, replete and monitor BMP as needed --Hypomagnesemia, replete and monitor level -- Rhabdomyolysis-resolved Preserved renal function, cont IV hydration Input output monitoring, monitor CK levels CK levels trending down [phone] --Schizo affective disorder; Psych evaluation and recommendations noted and appreciated. patient refusing meds and oral diet Management per psych, Recommend outpt f/u --Acute metabolic encephalopathy /altered mental state Multifactorial , schizoaffective disorder Patient came from [place], psych evaluation noted Psych now recommended for outpt f/u --Severe dehydration; improved continue IV hydration Input output monitoring Encourage plenty oral fluids but she is not taking any --transaminitis:- Probably secondary to rhabdo, Trended down --Poor oral intake with electrolyte imbalance Will add Megace and start on tube feeding --DVT prophylaxis; Heparin subcu Closely monitor the patient and adjust management as needed Plan of care reviewed with the patient's nurse Psych recommended outpt f/u Brief history: 60-year-old female patient was sent from [facility] with altered level of consciousness and poor oral intake. Patient has schizoaffective disorder with active hallucinations and confusion, Patient was noted to have rhabdomyolysis and multiple electrolyte imbalances, Rhabdomyolysis is resolved, mild hypo kalemia and hypo-phosphatemia - being corrected. Then she developed diarrhea - now positive for C. def, on vancomycin po. Patient remained in catatonic state, does not follow any command, does not want to eat and refuse meds. I strongly believe her electrolytes derangement and encephalopathy related to her catatonia, poor oral intake other than any underlying medical conditions. 07/13; patient's CK levels trending down on 1678, continue IV hydration patient is more alert at times, hallucinating Noncommunicative, severe hypokalemia, replace per protocol 07/14; potassium level significantly improved today to 3.2, replenish per protocol. CK levels trending down 828, continue IV hydration, monitor electrolytes 07/15; patient refused potassium yesterday today potassium levels again 2.7 We will add KCl to IV fluids, and IV K riders, monitor electrolytes. CK level 425. Refusing to eat confused noncommunicative. Possible inpatient psych admission when medically stable 07/16; rhabdomyolysis resolved, mild electrolyte imbalances, if corrected medically stable for inpatient psych placement 07/17: replete K and phosphate. repeat CBc BMP tomorrow. White count needs to be < 10 for inpt psych admission 07/18: cont to have mildly elevated white count, c/o loose stool. will check for C. def - start flagyl and cipro 07/19: White count normal today. change medications to Po. medically stable to go for inpt psych unit. 07/20; positive for C. def. patient not eating properly, refusing meds time to time. Psych now recommended outpt f/u. CM working on placement. Patient remains nonverbal, does not follow any commend and not giving any personal info. 07/21; K 2.0 today, cont to replete, follow BMP, patient remains nonverbal and not cooperative. refuses to eat and meds. cont d51/2NS. if condition doesnot improve will consider TF 07/22: Potassium level persistently remains low, magnesium 1.6 today. Will replete magnesium and potassium. Patient refusing meds and not eating at all per RN report. Totally noncooperative during the encounternot respond to any question. Keeps her eye closing and covering her face with her forearm. Will order for tube feeding and Dobbhoff tube. Continue to follow. We will also add Megace to boost appetite. 07/23: started on TF, follow BMP, change iv fluid to 1/2 NS. patient remains nonverbal 07/24; clinically unchanged, replete K, iv fluid and TF. reconsult psych as patient remains in catatonic phase 07/25: psych recommendation noted, continue tube feeding, continue to replete electrolytes as needed, follow BMP. I strongly believe her severe electrolytes derangement and encephalopathy related to her catatonia, poor oral intake other than any underlying medical conditions. There is no family contact in file, no home address available, patient appeared to be unfunded. campaign manager working on placement. Subjective Date of service: 07/25/20 Interval history: Patient seen and examined Patient's chart and medications reviewed Patient is noncommunicative, does not want to talk Vital signs noted - afebrile Dobhoff in place, tolerating TF Objective - Exam Narrative Exam: General appearance: Present: no acute distress, lying on bed closing her eyes - Neck Neck: Present: supple, normal ROM - Respiratory Respiratory effort: normal Respiratory: bilateral: diminished, negative: rales, rhonchi, wheezing - Cardiovascular Rhythm: regular Heart Sounds: Present: S1 & S2 - Extremities Extremities: no ischemia, No edema - Abdominal General gastrointestinal: soft, non-tender, non-distended, normal bowel sounds - Integumentary Integumentary: Present: clear, warm - Psychiatric Psychiatric: nonververbal - Neurologic Neurologic: no focal deficit - Constitutional Vitals: Vital Signs - 12hr 07/25/20 07/25/20 04:21 10:59 Temperature 98.0 F 99.3 F Pulse Rate 93 H Respiratory 16 24 Rate Blood Pressure 88/49 97/60 O2 Sat by Pulse 98 Oximetry - Labs CBC & Chem 7: 07/19/20 08:12 07/25/20 09:53 Labs: Abnormal lab results 07/24/20 07/25/20 07/25/20 Range/Units 17:34 05:58 08:09 Creatinine (0.6-1.2) mg/dL Glucose (65-100) mg/dL POC Glucose 146 H 141 H 138 H (70-105) Calcium (8.4-10.2) mg/dL 07/25/20 07/25/20 Range/Units 09:53 12:07 Creatinine 0.2 L (0.6-1.2) mg/dL Glucose 115 H (65-100) mg/dL POC Glucose 131 H (70-105) Calcium 8.2 L (8.4-10.2) mg/dL HEART Score - HEART Score Risk factors: 1-2 risk factors Troponin: Troponin T < 0.010 ng/mL (0.00-0.029) 07/11/20 21:17 Troponin: < normal limit - Critical Actions Critical Actions: 0-3 pts:0.9-1.7%risk of adverse cardiac event.Candidate for discharge
[2020-07-26] MEDS: VANCOMYCIN 250 MG/10 ML ORAL LIQD PO SCH ×4 (00:25→18:45)
[2020-07-26] MEDS: INSULIN REGULAR, HUMAN 100 UNIT/ML 3ML VIAL SUB-Q SCH ×4 (00:34→18:00)
[2020-07-26] MEDS: HEPARIN 5,000 UNIT/1 ML VIAL SUB-Q SCH ×4 (03:15→18:45)
--- NOTE | 2020-07-26 07:42 | Progress Note ---
Assessment and Plan Assessment and plan: -- C. def colitis changed abx to vancomycin po for 2 weeks total - 08/03/20 end date --Severe hypokalemia: Follow electrolytes, replete and monitor BMP as needed --Hypomagnesemia, replete and monitor level -- Rhabdomyolysis-resolved Preserved renal function, cont IV hydration Input output monitoring, monitor CK levels CK levels trending down [phone] --Schizo affective disorder; Psych evaluation and recommendations noted and appreciated. patient refusing meds and oral diet Management per psych, Recommend outpt f/u --Acute metabolic encephalopathy /altered mental state Multifactorial , schizoaffective disorder Patient came from [place], psych evaluation noted Psych now recommended for outpt f/u --Severe dehydration; improved continue IV hydration Input output monitoring Encourage plenty oral fluids but she is not taking any --transaminitis:- Probably secondary to rhabdo, Trended down --Poor oral intake with electrolyte imbalance Will add Megace and start on tube feeding --DVT prophylaxis; Heparin subcu Closely monitor the patient and adjust management as needed Plan of care reviewed with the patient's nurse Psych recommended outpt f/u Brief history: 60-year-old female patient was sent from [facility] with altered level of consciousness and poor oral intake. Patient has schizoaffective disorder with active hallucinations and confusion, Patient was noted to have rhabdomyolysis and multiple electrolyte imbalances, Rhabdomyolysis is resolved, mild hypokalemia and hypo-phosphatemia - being corrected. Then she developed diarrhea - now positive for C. def, on vancomycin po. Patient remained in catatonic state, does not follow any command, does not want to eat and refuse meds. I strongly believe her electrolytes derangement and encephalopathy related to her catatonia, poor oral intake other than any underlying medical conditions. 07/13; patient's CK levels trending down on 1678, continue IV hydration patient is more alert at times, hallucinating Noncommunicative, severe hypokalemia, replace per protocol 07/14; potassium level significantly improved today to 3.2, replenish per protocol. CK levels trending down 828, continue IV hydration, monitor electrolytes 07/15; patient refused potassium yesterday today potassium levels again 2.7 We will add KCl to IV fluids, and IV K riders, monitor electrolytes. CK level 425. Refusing to eat confused noncommunicative. Possible inpatient psych admission when medically stable 07/16; rhabdomyolysis resolved, mild electrolyte imbalances, if corrected medically stable for inpatient psych placement 07/17: replete K and phosphate. repeat CBc BMP tomorrow. White count needs to be < 10 for inpt psych admission 07/18: cont to have mildly elevated white count, c/o loose stool. will check for C. def - start flagyl and cipro 07/19: White count normal today. change medications to Po. medically stable to go for inpt psych unit. 07/20; positive for C. def. patient not eating properly, refusing meds time to time. Psych now recommended outpt f/u. CM working on placement. Patient remains nonverbal, does not follow any commend and not giving any personal info. 07/21; K 2.0 today, cont to replete, follow BMP, patient remains nonverbal and not cooperative. refuses to eat and meds. cont d51/2NS. if condition doesnot improve will consider TF 07/22: Potassium level persistently remains low, magnesium 1.6 today. Will replete magnesium and potassium. Patient refusing meds and not eating at all per RN report. Totally noncooperative during the encounternot respond to any question. Keeps her eye closing and covering her face with her forearm. Will order for tube feeding and Dobbhoff tube. Continue to follow. We will also add Megace to boost appetite. 07/23: started on TF, follow BMP, change iv fluid to 1/2 NS. patient remains nonverbal 07/24; clinically unchanged, replete K, iv fluid and TF. reconsult psych as patient remains in catatonic phase 07/25: psych recommendation noted, continue tube feeding, continue to replete electrolytes as needed, follow BMP. I strongly believe her severe electrolytes derangement and encephalopathy related to her catatonia, poor oral intake other than any underlying medical conditions. There is no family contact in file, no home address available, patient appeared to be unfunded. crew manager working on placement. 07/26: psych recommendation noted, continue tube feeding, continue to replete electrolytes as needed, follow BMP. I strongly believe her severe electrolytes derangement and encephalopathy related to her catatonia, poor oral intake other than any underlying medical conditions. There is no family contact in file, no home address available, patient appeared to be unfunded. crew manager working on placement. History Interval history: Patient was seen and evaluated this morning Patient is noncommunicative, altered On NG tube feeding Hospitalist Physical - Physical exam Narrative exam: Patient is noncommunicative, NG tube in place The patient appeared well nourished and normally developed. Vital signs as documented. Head exam is unremarkable. No scleral icterus . Neck is without jugular venous distension, thyromegaly, or carotid bruits. Lungs are clear to auscultation. Cardiac exam reveals regular rate and Rhythm. Abdominal exam reveals normal bowel sounds, nontender, no organomegaly. Extremities are nonedematous and both femoral and pedal pulses are normal. PHOTOENGRAVING ETCHER: Patient is noncommunicative. - Constitutional Vitals: Temp Pulse Resp BP Pulse Ox 98.9 F 110 H 20 124/77 95 07/26/20 06:21 07/26/20 06:21 07/26/20 06:21 07/26/20 06:21 07/26/20 06:21 General appearance: Present: no acute distress, well-nourished, other (Hallucinating) HEART Score - HEART Score Risk factors: 1-2 risk factors Troponin: Troponin T < 0.010 ng/mL (0.00-0.029) 07/11/20 21:17 Troponin: < normal limit - Critical Actions Critical Actions: 0-3 pts:0.9-1.7%risk of adverse cardiac event.Candidate for discharge Results - Labs CBC & Chem 7: 07/26/20 07:30 07/26/20 07:30 Labs: Laboratory Last Values WBC 10.4 K/mm3 (4.5-11.0) 07/19/20 08:12 RBC 3.90 M/mm3 (3.65-5.03) 07/19/20 08:12 Hgb 12.8 gm/dl (10.1-14.3) 07/19/20 08:12 Hct 36.9 % (30.3-42.9) 07/19/20 08:12 MCV 95 fl (79-97) 07/19/20 08:12 MCH 33 pg (28-32) H 07/19/20 08:12 MCHC 35 % (30-34) H 07/19/20 08:12 RDW 13.3 % (13.2-15.2) 07/19/20 08:12 Plt Count 396 K/mm3 (140-440) 07/19/20 08:12 Lymph % (Auto) 20.1 % (13.4-35.0) 07/18/20 05:53 [place] % (Auto) 7.9 % (0.0-7.3) H 07/18/20 05:53 Eos % (Auto) 0.8 % (0.0-4.3) 07/18/20 05:53 Baso % (Auto) 0.5 % (0.0-1.8) 07/18/20 05:53 Lymph # 2.3 K/mm3 (1.2-5.4) 07/18/20 05:53 [place] # 0.9 K/mm3 (0.0-0.8) H 07/18/20 05:53 Eos # 0.1 K/mm3 (0.0-0.4) 07/18/20 05:53 Baso # 0.1 K/mm3 (0.0-0.1) 07/18/20 05:53 Seg Neutrophils % 70.7 % (40.0-70.0) H 07/18/20 05:53 Seg Neutrophils # 8.2 K/mm3 (1.8-7.7) H 07/18/20 05:53 Sodium 138 mmol/L (137-145) D 07/25/20 09:53 Potassium 4.1 mmol/L (3.6-5.0) D 07/25/20 09:53 Chloride 102.2 mmol/L (98-107) 07/25/20 09:53 Carbon Dioxide 24 mmol/L (22-30) D 07/25/20 09:53 Anion Gap 16 mmol/L 07/25/20 09:53 BUN 7 mg/dL (7-17) 07/25/20 09:53 Creatinine 0.2 mg/dL (0.6-1.2) L 07/25/20 09:53 Estimated GFR > 60 ml/min 07/25/20 09:53 BUN/Creatinine Ratio 35 % 07/25/20 09:53 Glucose 115 mg/dL (65-100) H 07/25/20 09:53 POC Glucose 153 (70-105) H 07/26/20 05:43 Lactic Acid 1.50 mmol/L (0.7-2.0) 07/12/20 00:04 Phosphorus 3.10 mg/dL (2.5-4.5) 07/24/20 06:00 Magnesium 2.10 mg/dL (1.7-2.3) 07/24/20 06:00 Calcium 8.2 mg/dL (8.4-10.2) L 07/25/20 09:53 Total Bilirubin 0.70 mg/dL (0.1-1.2) 07/13/20 09:33 Direct Bilirubin < 0.2 mg/dL (0-0.2) 07/13/20 09:33 AST 83 units/L (5-40) H 07/13/20 09:33 ALT 54 units/L (7-56) 07/13/20 09:33 Alkaline Phosphatase 46 units/L (35-129) 07/13/20 09:33 Ammonia 28.0 umol/L (25-60) 07/11/20 21:17 Total Creatine Kinase 102 units/L (30-135) 07/17/20 05:21 CK-MB (CK-2) 9.2 ng/mL (0.0-4.0) H 07/12/20 15:13 CK-MB (CK-2) Rel Index 0.4 (0-4) 07/12/20 15:13 Troponin T < 0.010 ng/mL (0.00-0.029) 07/11/20 21:17 Total Protein 5.3 g/dL (6.3-8.2) L D 07/13/20 09:33 Albumin 3.0 g/dL (3.9-5) L 07/13/20 09:33 Albumin/Globulin Ratio 1.3 % 07/13/20 09:33 Urine Color Yellow (Yellow) 07/11/20 Unknown Urine Turbidity Clear (Clear) 07/11/20 Unknown Urine pH 6.0 (5.0-7.0) 07/11/20 Unknown Ur Specific [place] 1.023 (1.003-1.030) 07/11/20 Unknown Urine Protein 30 mg/dl mg/dL (Negative) 07/11/20 Unknown Urine Glucose (UA) Neg mg/dL (Negative) 07/11/20 Unknown Urine Ketones Tr mg/dL (Negative) 07/11/20 Unknown Urine Blood Neg (Negative) 07/11/20 Unknown Urine Nitrite Neg (Negative) 07/11/20 Unknown Urine Bilirubin Neg (Negative) 07/11/20 Unknown Urine Urobilinogen 2.0 mg/dL (<2.0) 07/11/20 Unknown Ur Leukocyte Esterase Neg (Negative) 07/11/20 Unknown Urine WBC (Auto) 2.0 /HPF (0.0-6.0) 07/11/20 Unknown Urine RBC (Auto) 3.0 /HPF (0.0-6.0) 07/11/20 Unknown U Epithel Cells (Auto) 3.0 /HPF (0-13.0) 07/11/20 Unknown Urine Mucus 3+ /HPF 07/11/20 Unknown Salicylates < 0.3 mg/dL (2.8-20.0) L 07/11/20 21:17 Urine Opiates Screen Presumptive negative 07/11/20 Unknown Urine Methadone Screen Presumptive negative 07/11/20 Unknown Acetaminophen 5.0 ug/mL (10.0-30.0) L 07/11/20 21:17 Ur Barbiturates Screen Presumptive negative 07/11/20 Unknown Valproic Acid 7.7 ug/mL (50-100) L 07/19/20 08:12 Ur Phencyclidine Scrn Presumptive negative 07/11/20 Unknown Ur Amphetamines Screen Presumptive negative 07/11/20 Unknown U Benzodiazepines Scrn Presumptive negative 07/11/20 Unknown Urine Cocaine Screen Presumptive negative 07/11/20 Unknown U Marijuana (THC) Screen Presumptive negative 07/11/20 Unknown Drugs of Abuse Note Disclamer 07/11/20 Unknown C. difficile Tox (PCR) Positive (Negative) 07/19/20 18:51 Led[place]ma/IV: Voiding Method Incontinent IV Catheter Type [Left Forearm INT / Saline Lock ] IV Catheter Type [Right Hand] Peripheral IV IV Catheter Type [Right Peripheral IV Forearm] IV Catheter Type [Left Hand] INT / Saline Lock Active Medications - Current Medications Current Medications: Generic Name Dose Route Start Last Admin Trade Name Freq PRN Reason Stop Dose Admin Acetaminophen 650 mg 07/12/20 01:05 07/12/20 22:08 Tylenol [place] 650 mg Q4H PRN Administration Fever >101 Lipase/Protease/Amylase 1 each 07/22/20 07:44 Pancrebetty [place] 10,500 Unit FEEDTUBE PRN PRN For Clogged Feeding Tube Haloperidol Lactate 5 mg 07/18/20 13:15 07/21/20 22:06 Haldol IM 5 mg Q6H PRN Administration Agitation Heparin Sodium (Porcine) 5,000 unit 07/12/20 10:00 07/26/20 05:23 Heparin SUB-Q 5,000 unit Q8H KEITH Administration Sodium Chloride 1,000 mls @ 75 mls/hr 07/23/20 17:00 07/25/20 09:52 Nacl 0.45% 1000 Ml IV 75 mls/hr DIRECT KEITH Infusion Insulin Human Regular 0 unit 07/23/20 09:00 07/26/20 05:55 Humulin R SUB-Q 2 unit Q6HR KEITH Administration Protocol Lorazepam 0.5 mg 07/18/20 13:17 Ativan PO Q4H PRN Anxiety Megestrol Acetate 400 mg 07/22/20 10:00 07/25/20 09:58 Megestrol PO 400 mg QDAY KEITH Administration Olanzapine 2.5 mg 07/25/20 22:00 07/25/20 22:26 Zyprexa PO 2.5 mg QHS KEITH Administration Ondansetron HCl 4 mg 07/12/20 01:06 Zofran IV Q8H PRN Nausea And Vomiting Potassium Chloride 40 meq 07/24/20 10:00 07/25/20 09:57 Potassium Chloride FEEDTUBE 40 meq QDAY KEITH Administration Simple Syrup 15 ml 07/22/20 07:44 Simple Syrup FEEDTUBE PRN PRN Hypoglycemia Simple Syrup 30 ml 07/22/20 07:44 Simple Syrup FEEDTUBE PRN PRN Hypoglycemia Sodium Bicarbonate 325 mg 07/22/20 07:44 Sodium Bicarbonate FEEDTUBE PRN PRN For Clogged Feeding Tube Valproic Acid 250 mg 07/25/20 22:00 07/25/20 22:26 Depakene Liq FEEDTUBE 250 mg BID KEITH Administration Vancomycin HCl 125 mg 07/20/20 09:30 07/26/20 05:23 Vancomycin Po PO 08/03/20 06:01 125 mg Q6HR KEITH Administration Nutrition/Malnutrition Assess - Dietary Evaluation Nutrition/Malnutrition Findings: Nutrition Notes Start: 07/12/20 11:40 Freq: Status: Active Protocol: Document 07/24/20 11:48 LM (Rec: 07/24/20 11:55 LM [id number]) Nutrition Notes Initial or Follow up Reassessment Other Pertinent Diagnosis AMS, Rhabdomyolysis, dehydration, Hx of stroke Current Diet Osmolite 1.5 at 35ml/hr Labs/Tests Na 146 K 3 Pertinent Medications NS at 75ml/hr Height 5 ft Weight 54 kg [place] Body Weight (kg) 45.45 BMI 23.2 Weight change and time frame Wt change noted. Weight Status Appropriate Subjective/Other Information Per RN pt is tolerating TF at goal rate. Percent of energy/protein needs met: 100%/90% Burn Absent Trauma Absent GI Symptoms None Current % PO Negligible Minimum of two criteria No Energy Intake (severe) < or equal to 50% Estimated Energy Requirement > or equal to 5 days #1 Nutrition Diagnosis Inadequate oral intake Diagnosis Progress(for reassessment Continues documentation) Is patient on ventilator? No Is Patient Ambulatory and/or Out of Bed No REE-([facility]-confined to bed) 1237.008 Calculation Used for Recommendations [facility] Additional Notes Protein Needs 59-70g (1-1.2g/ kg) Fluid Needs: 1ml/kcal Nutrition Intervention Change Diet Order: TF Nutrition Support: Osmolite 1.5 at 35ml/hr. Flush with 175ml q4h for hypernatremia Kcal 1,260 Protein (gm) 53 Fluid (mL) 640 Goal #1 Meet at least 80% of kcal and protein needs Anticipated Discharge Needs: unable to determine at this time Follow-Up By: 07/27/20 Additional Comments F/U for TF tolerance/Na
[2020-07-26 07:43] LABS: Basophils % (Auto) 0.3 % (0.0-1.8); Eosinophils # (Auto) 0.1 K/mm3 (0.0-0.4); Eosinophils % (Auto) 0.5 % (0.0-4.3); Hematocrit 40.4 % (30.3-42.9); Hemoglobin 13.9 gm/dl (10.1-14.3); Lymphocytes % (Auto) 21.6 % (13.4-35.0); Mean Corpuscular HGB Conc 34 % (30-34); Mean Corpuscular Volume 97 fl (79-97); Monocytes # (Auto) 0.6 K/mm3 (0.0-0.8); Monocytes % (Auto) 6.2 % (0.0-7.3); Platelet Count 464 K/mm3 (140-440); Red Blood Count 4.17 M/mm3 (3.65-5.03); Red Cell Distribution Width 14.4 % (13.2-15.2)
[2020-07-26 08:10] LABS: Blood Urea Nitrogen 9 mg/dL (7-17); Calcium 8.7 mg/dL (8.4-10.2); Hemolysis Index 19
[2020-07-26 08:13] LABS: BUN/Creatinine Ratio 30
[2020-07-26] MEDS: MEGESTROL 400 MG/10 ML ORAL LIQD PO SCH (10:43)
[2020-07-26] MEDS: VALPROIC ACID 250 MG/5 ML ORAL LIQD FEEDTUBE SCH ×2 (10:43→21:06)
[2020-07-26] MEDS: POTASSIUM CHLORIDE 20 MEQ PACKET FEEDTUBE SCH (10:44)
[2020-07-27] MEDS: INSULIN REGULAR, HUMAN 100 UNIT/ML 3ML VIAL SUB-Q SCH ×4 (01:46→18:31)
[2020-07-27] MEDS: ACETAMINOPHEN 650 MG RECT SUPP PR PRN (01:57)
[2020-07-27] MEDS: HEPARIN 5,000 UNIT/1 ML VIAL SUB-Q SCH ×3 (01:57→17:15)
[2020-07-27] MEDS: VANCOMYCIN 250 MG/10 ML ORAL LIQD PO SCH ×5 (05:57→23:05)
--- NOTE | 2020-07-27 07:33 | Progress Note ---
Assessment and Plan Assessment and plan: -- C. def colitis changed abx to vancomycin po for 2 weeks total - 08/03/20 end date --Severe hypokalemia: Follow electrolytes, replete and monitor BMP as needed --Hypomagnesemia, replete and monitor level -- Rhabdomyolysis-resolved Preserved renal function, cont IV hydration Input output monitoring, monitor CK levels CK levels trending down [phone] --Schizo affective disorder; Psych evaluation and recommendations noted and appreciated. patient refusing meds and oral diet Management per psych, Recommend outpt f/u --Acute metabolic encephalopathy /altered mental state Multifactorial , schizoaffective disorder Patient came from [facility], psych evaluation noted Psych now recommended for outpt f/u --Severe dehydration; improved continue IV hydration Input output monitoring Encourage plenty oral fluids but she is not taking any --transaminitis:- Probably secondary to rhabdo, Trended down --Poor oral intake with electrolyte imbalance Will add Megace and start on tube feeding --DVT prophylaxis; Heparin subcu Closely monitor the patient and adjust management as needed Plan of care reviewed with the patient's nurse Psych recommended outpt f/u Brief history: 60-year-old female patient was sent from [facility] with altered level of consciousness and poor oral intake. Patient has schizoaffective disorder with active hallucinations and confusion, Patient was noted to have rhabdomyolysis and multiple electrolyte imbalances, Rhabdomyolysis is resolved, mild hypokalemia and hypo-phosphatemia - being corrected. Then she developed diarrhea - now positive for C. def, on vancomycin po. Patient remained in catatonic state, does not follow any command, does not want to eat and refuse meds. I strongly believe her electrolytes derangement and encephalopathy related to her catatonia, poor oral intake other than any underlying medical conditions. 07/13; patient's CK levels trending down on 1678, continue IV hydration patient is more alert at times, hallucinating Noncommunicative, severe hypokalemia, replace per protocol 07/14; potassium level significantly improved today to 3.2, replenish per protocol. CK levels trending down 828, continue IV hydration, monitor electrolytes 07/15; patient refused potassium yesterday today potassium levels again 2.7 We will add KCl to IV fluids, and IV K riders, monitor electrolytes. CK level 425. Refusing to eat confused noncommunicative. Possible inpatient psych admission when medically stable 07/16; rhabdomyolysis resolved, mild electrolyte imbalances, if corrected medically stable for inpatient psych placement 07/17: replete K and phosphate. repeat CBc BMP tomorrow. White count needs to be < 10 for inpt psych admission 07/18: cont to have mildly elevated white count, c/o loose stool. will check for C. def - start flagyl and cipro 07/19: White count normal today. change medications to Po. medically stable to go for inpt psych unit. 07/20; positive for C. def. patient not eating properly, refusing meds time to time. Psych now recommended outpt f/u. CM working on placement. Patient remains nonverbal, does not follow any commend and not giving any personal info. 07/21; K 2.0 today, cont to replete, follow BMP, patient remains nonverbal and not cooperative. refuses to eat and meds. cont d51/2NS. if condition doesnot improve will consider TF 07/22: Potassium level persistently remains low, magnesium 1.6 today. Will replete magnesium and potassium. Patient refusing meds and not eating at all per RN report. Totally noncooperative during the encounternot respond to any question. Keeps her eye closing and covering her face with her forearm. Will order for tube feeding and Dobbhoff tube. Continue to follow. We will also add Megace to boost appetite. 07/23: started on TF, follow BMP, change iv fluid to 1/2 NS. patient remains nonverbal 07/24; clinically unchanged, replete K, iv fluid and TF. reconsult psych as patient remains in catatonic phase 07/25: psych recommendation noted, continue tube feeding, continue to replete electrolytes as needed, follow BMP. I strongly believe her severe electrolytes derangement and encephalopathy related to her catatonia, poor oral intake other than any underlying medical conditions. There is no family contact in file, no home address available, patient appeared to be unfunded. 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 07/26: psych recommendation noted, continue tube feeding, continue to replete electrolytes as needed, follow BMP. I strongly believe her severe electrolytes derangement and encephalopathy related to her catatonia, poor oral intake other than any underlying medical conditions. There is no family contact in file, no home address available, patient appeared to be unfunded. 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 07/27; continue with tube feeding. There is no family contact in file, no home a ddress available, patient appeared to be unfunded. Case management is following History Interval history: Patient was seen and evaluated this morning Patient is noncommunicative, altered On NG tube feeding Hospitalist Physical - Physical exam Narrative exam: Patient is noncommunicative, NG tube in place The patient appeared well nourished and normally developed. Vital signs as documented. Head exam is unremarkable. No scleral icterus . Neck is without jugular venous distension, thyromegaly, or carotid bruits. Lungs are clear to auscultation. Cardiac exam reveals regular rate and Rhythm. Abdominal exam reveals normal bowel sounds, nontender, no organomegaly. Extremities are nonedematous and both femoral and pedal pulses are normal. 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 - Constitutional Vitals: Temp Pulse Resp BP Pulse Ox 97.6 F 103 H 22 93/63 100 07/27/20 05:58 07/27/20 05:58 07/27/20 05:58 07/27/20 05:58 07/27/20 05:58 General appearance: Present: no acute distress, well-nourished, other (Hallucinating) HEART Score - HEART Score Risk factors: 1-2 risk factors Troponin: Troponin T < 0.010 ng/mL (0.00-0.029) 07/11/20 21:17 Troponin: < normal limit - Critical Actions Critical Actions: 0-3 pts:0.9-1.7%risk of adverse cardiac event.Candidate for discharge Results - Labs CBC & Chem 7: 07/26/20 07:30 07/26/20 07:30 Labs: Laboratory Last Values WBC 9.5 K/mm3 (4.5-11.0) 07/26/20 07:30 RBC 4.17 M/mm3 (3.65-5.03) 07/26/20 07:30 Hgb 13.9 gm/dl (10.1-14.3) 07/26/20 07:30 Hct 40.4 % (30.3-42.9) 07/26/20 07:30 MCV 97 fl (79-97) 07/26/20 07:30 MCH 33 pg (28-32) H 07/26/20 07:30 MCHC 34 % (30-34) 07/26/20 07:30 RDW 14.4 % (13.2-15.2) 07/26/20 07:30 Plt Count 464 K/mm3 (140-440) H 07/26/20 07:30 Lymph % (Auto) 21.6 % (13.4-35.0) 07/26/20 07:30 [place] % (Auto) 6.2 % (0.0-7.3) 07/26/20 07:30 Eos % (Auto) 0.5 % (0.0-4.3) 07/26/20 07:30 Baso % (Auto) 0.3 % (0.0-1.8) 07/26/20 07:30 Lymph # (Auto) 2.0 K/mm3 (1.2-5.4) 07/26/20 07:30 [place] # (Auto) 0.6 K/mm3 (0.0-0.8) 07/26/20 07:30 Eos # (Auto) 0.1 K/mm3 (0.0-0.4) 07/26/20 07:30 Baso # (Auto) 0.0 K/mm3 (0.0-0.1) 07/26/20 07:30 Seg Neutrophils % 71.4 % (40.0-70.0) H 07/26/20 07:30 Seg Neutrophils # 6.8 K/mm3 (1.8-7.7) 07/26/20 07:30 Sodium 142 mmol/L (137-145) 07/26/20 07:30 Potassium 4.9 mmol/L (3.6-5.0) 07/26/20 07:30 Chloride 102.9 mmol/L (98-107) 07/26/20 07:30 Carbon Dioxide 26 mmol/L (22-30) 07/26/20 07:30 Anion Gap 18 mmol/L 07/26/20 07:30 BUN 9 mg/dL (7-17) 07/26/20 07:30 Creatinine 0.3 mg/dL (0.6-1.2) L 07/26/20 07:30 Estimated GFR > 60 ml/min 07/26/20 07:30 BUN/Creatinine Ratio 30 % 07/26/20 07:30 Glucose 144 mg/dL (65-100) H 07/26/20 07:30 POC Glucose 128 (70-105) H 07/27/20 06:11 Lactic Acid 1.50 mmol/L (0.7-2.0) 07/12/20 00:04 Phosphorus 3.10 mg/dL (2.5-4.5) 07/24/20 06:00 Magnesium 2.10 mg/dL (1.7-2.3) 07/24/20 06:00 Calcium 8.7 mg/dL (8.4-10.2) 07/26/20 07:30 Total Bilirubin 0.70 mg/dL (0.1-1.2) 07/13/20 09:33 Direct Bilirubin < 0.2 mg/dL (0-0.2) 07/13/20 09:33 AST 83 units/L (5-40) H 07/13/20 09:33 ALT 54 units/L (7-56) 07/13/20 09:33 Alkaline Phosphatase 46 units/L (35-129) 07/13/20 09:33 Ammonia 28.0 umol/L (25-60) 07/11/20 21:17 Total Creatine Kinase 102 units/L (30-135) 07/17/20 05:21 CK-MB (CK-2) 9.2 ng/mL (0.0-4.0) H 07/12/20 15:13 CK-MB (CK-2) Rel Index 0.4 (0-4) 07/12/20 15:13 Troponin T < 0.010 ng/mL (0.00-0.029) 07/11/20 21:17 Total Protein 5.3 g/dL (6.3-8.2) L D 07/13/20 09:33 Albumin 3.0 g/dL (3.9-5) L 07/13/20 09:33 Albumin/Globulin Ratio 1.3 % 07/13/20 09:33 Urine Color Yellow (Yellow) 07/11/20 Unknown Urine Turbidity Clear (Clear) 07/11/20 Unknown Urine pH 6.0 (5.0-7.0) 07/11/20 Unknown Ur Specific [place] 1.023 (1.003-1.030) 07/11/20 Unknown Urine Protein 30 mg/dl mg/dL (Negative) 07/11/20 Unknown Urine Glucose (UA) Neg mg/dL (Negative) 07/11/20 Unknown Urine Ketones Tr mg/dL (Negative) 07/11/20 Unknown Urine Blood Neg (Negative) 07/11/20 Unknown Urine Nitrite Neg (Negative) 07/11/20 Unknown Urine Bilirubin Neg (Negative) 07/11/20 Unknown Urine Urobilinogen 2.0 mg/dL (<2.0) 07/11/20 Unknown Ur Leukocyte Esterase Neg (Negative) 07/11/20 Unknown Urine WBC (Auto) 2.0 /HPF (0.0-6.0) 07/11/20 Unknown Urine RBC (Auto) 3.0 /HPF (0.0-6.0) 07/11/20 Unknown U Epithel Cells (Auto) 3.0 /HPF (0-13.0) 07/11/20 Unknown Urine Mucus 3+ /HPF 07/11/20 Unknown Salicylates < 0.3 mg/dL (2.8-20.0) L 07/11/20 21:17 Urine Opiates Screen Presumptive negative 07/11/20 Unknown Urine Methadone Screen Presumptive negative 07/11/20 Unknown Acetaminophen 5.0 ug/mL (10.0-30.0) L 07/11/20 21:17 Ur Barbiturates Screen Presumptive negative 07/11/20 Unknown Valproic Acid 7.7 ug/mL (50-100) L 07/19/20 08:12 Ur Phencyclidine Scrn Presumptive negative 07/11/20 Unknown Ur Amphetamines Screen Presumptive negative 07/11/20 Unknown U Benzodiazepines Scrn Presumptive negative 07/11/20 Unknown Urine Cocaine Screen Presumptive negative 07/11/20 Unknown U Marijuana (THC) Screen Presumptive negative 07/11/20 Unknown Drugs of Abuse Note Disclamer 07/11/20 Unknown C. difficile Tox (PCR) Positive (Negative) 07/19/20 18:51 Led[place]ma/IV: Voiding Method Diaper IV Catheter Type [Left Forearm INT / Saline Lock ] IV Catheter Type [Right Hand] Peripheral IV IV Catheter Type [Right Peripheral IV Forearm] IV Catheter Type [Left Hand] INT / Saline Lock Active Medications - Current Medications Current Medications: Generic Name Dose Route Start Last Admin Trade Name Freq PRN Reason Stop Dose Admin Acetaminophen 650 mg 07/12/20 01:05 07/27/20 01:57 Tylenol CO 650 mg Q4H PRN Administration Fever >101 Lipase/Protease/Amylase 1 each 07/22/20 07:44 Pancrebetty [place] 10,500 Unit FEEDTUBE PRN PRN For Clogged Feeding Tube Haloperidol Lactate 5 mg 07/18/20 13:15 07/21/20 22:06 Haldol IM 5 mg Q6H PRN Administration Agitation Heparin Sodium (Porcine) 5,000 unit 07/12/20 10:00 07/27/20 01:57 Heparin SUB-Q 5,000 unit Q8H KEITH Administration Sodium Chloride 1,000 mls @ 75 mls/hr 07/23/20 17:00 07/25/20 09:52 Nacl 0.45% 1000 Ml IV 75 mls/hr DIRECT KEITH Infusion Insulin Human Regular 0 unit 07/23/20 09:00 07/27/20 06:07 Humulin R SUB-Q Not Given Q6HR [facility] Protocol Lorazepam 0.5 mg 07/18/20 13:17 Ativan PO Q4H PRN Anxiety Megestrol Acetate 400 mg 07/22/20 10:00 07/26/20 10:43 Megestrol PO 400 mg QDAY KEITH Administration Olanzapine 2.5 mg 07/25/20 22:00 07/26/20 21:06 Zyprexa PO 2.5 mg QHS KEITH Administration Ondansetron HCl 4 mg 07/12/20 01:06 Zofran IV Q8H PRN Nausea And Vomiting Simple Syrup 15 ml 07/22/20 07:44 Simple Syrup FEEDTUBE PRN PRN Hypoglycemia Simple Syrup 30 ml 07/22/20 07:44 Simple Syrup FEEDTUBE PRN PRN Hypoglycemia Sodium Bicarbonate 325 mg 07/22/20 07:44 Sodium Bicarbonate FEEDTUBE PRN PRN For Clogged Feeding Tube Valproic Acid 250 mg 07/25/20 22:00 07/26/20 21:06 Depakene Liq FEEDTUBE 250 mg BID KEITH Administration Vancomycin HCl 125 mg 07/20/20 09:30 07/27/20 05:57 Vancomycin Po PO 08/03/20 06:01 125 mg Q6HR KEITH Administration Nutrition/Malnutrition Assess - Dietary Evaluation Nutrition/Malnutrition Findings: Nutrition Notes Start: 07/12/20 11:40 Freq: Status: Active Protocol: Document 07/24/20 11:48 LM (Rec: 07/24/20 11:55 LM [id number]) Nutrition Notes Initial or Follow up Reassessment Other Pertinent Diagnosis AMS, Rhabdomyolysis, dehydration, Hx of stroke Current Diet Osmolite 1.5 at 35ml/hr Labs/Tests Na 146 K 3 Pertinent Medications NS at 75ml/hr Height 5 ft Weight 54 kg [place] Body Weight (kg) 45.45 BMI 23.2 Weight change and time frame Wt change noted. Weight Status Appropriate Subjective/Other Information Per RN pt is tolerating TF at goal rate. Percent of energy/protein needs met: 100%/90% Burn Absent Trauma Absent GI Symptoms None Current % PO Negligible Minimum of two criteria No Energy Intake (severe) < or equal to 50% Estimated Energy Requirement > or equal to 5 days #1 Nutrition Diagnosis Inadequate oral intake Diagnosis Progress(for reassessment Continues documentation) Is patient on ventilator? No Is Patient Ambulatory and/or Out of Bed No REE-([facility]-confined to bed) 1237.008 Calculation Used for Recommendations [facility] Additional Notes Protein Needs 59-70g (1-1.2g/ kg) Fluid Needs: 1ml/kcal Nutrition Intervention Change Diet Order: TF Nutrition Support: Osmolite 1.5 at 35ml/hr. Flush with 175ml q4h for hypernatremia Kcal 1,260 Protein (gm) 53 Fluid (mL) 640 Goal #1 Meet at least 80% of kcal and protein needs Anticipated Discharge Needs: unable to determine at this time Follow-Up By: 07/27/20 Additional Comments F/U for TF tolerance/Na
[2020-07-27 10:15] LABS: Blood Urea Nitrogen 11 mg/dL (7-17); Calcium 8.8 mg/dL (8.4-10.2); Hemolysis Index 7
[2020-07-27 10:18] LABS: BUN/Creatinine Ratio 37
[2020-07-27] MEDS: MEGESTROL 400 MG/10 ML ORAL LIQD PO SCH (13:15)
[2020-07-27] MEDS: VALPROIC ACID 250 MG/5 ML ORAL LIQD FEEDTUBE SCH ×2 (13:15→23:04)
[2020-07-27] MEDS: SODIUM CHLORIDE 0.45% 1000 ML 1,000 ML IV SCH (15:20)
[2020-07-28] MEDS: HEPARIN 5,000 UNIT/1 ML VIAL SUB-Q SCH ×3 (03:30→17:38)
[2020-07-28] MEDS: SODIUM CHLORIDE 0.45% 1000 ML 1,000 ML IV SCH ×2 (03:30→17:38)
[2020-07-28] MEDS: INSULIN REGULAR, HUMAN 100 UNIT/ML 3ML VIAL SUB-Q SCH ×5 (06:05→23:58)
[2020-07-28 06:37] LABS: Blood Urea Nitrogen 11 mg/dL (7-17); Calcium 8.9 mg/dL (8.4-10.2); Hemolysis Index 77
[2020-07-28] MEDS: VANCOMYCIN 250 MG/10 ML ORAL LIQD PO SCH ×4 (06:39→23:56)
[2020-07-28 06:41] LABS: BUN/Creatinine Ratio 37
--- NOTE | 2020-07-28 07:35 | Progress Note ---
Assessment and Plan Assessment and plan: -- C. def colitis changed abx to vancomycin po for 2 weeks total - 08/03/20 end date --Severe hypokalemia: Follow electrolytes, replete and monitor BMP as needed --Hypomagnesemia, replete and monitor level -- Rhabdomyolysis-resolved Preserved renal function, cont IV hydration Input output monitoring, monitor CK levels CK levels trending down [phone] --Schizo affective disorder; Psych evaluation and recommendations noted and appreciated. patient refusing meds and oral diet Management per psych, Recommend outpt f/u --Acute metabolic encephalopathy /altered mental state Multifactorial , schizoaffective disorder Patient came from [place], psych evaluation noted Psych now recommended for outpt f/u --Severe dehydration; improved continue IV hydration Input output monitoring Encourage plenty oral fluids but she is not taking any --transaminitis:- Probably secondary to rhabdo, Trended down --Poor oral intake with electrolyte imbalance Will add Megace and start on tube feeding --DVT prophylaxis; Heparin subcu Closely monitor the patient and adjust management as needed Plan of care reviewed with the patient's nurse Psych recommended outpt f/u Brief history: 60-year-old female patient was sent from [facility] with altered level of consciousness and poor oral intake. Patient has schizoaffective disorder with active hallucinations and confusion, Patient was noted to have rhabdomyolysis and multiple electrolyte imbalances, Rhabdomyolysis is resolved, mild hypokalemia and hypo-phosphatemia - being corrected. Then she developed diarrhea - now positive for C. def, on vancomycin po. Patient remained in catatonic state, does not follow any command, does not want to eat and refuse meds. I strongly believe her electrolytes derangement and encephalopathy related to her catatonia, poor oral intake other than any underlying medical conditions. 07/13; patient's CK levels trending down on 1678, continue IV hydration patient is more alert at times, hallucinating Noncommunicative, severe hypokalemia, replace per protocol 07/14; potassium level significantly improved today to 3.2, replenish per protocol. CK levels trending down 828, continue IV hydration, monitor electrolytes 07/15; patient refused potassium yesterday today potassium levels again 2.7 We will add KCl to IV fluids, and IV K riders, monitor electrolytes. CK level 425. Refusing to eat confused noncommunicative. Possible inpatient psych admission when medically stable 07/16; rhabdomyolysis resolved, mild electrolyte imbalances, if corrected medically stable for inpatient psych placement 07/17: replete K and phosphate. repeat CBc BMP tomorrow. White count needs to be < 10 for inpt psych admission 07/18: cont to have mildly elevated white count, c/o loose stool. will check for C. def - start flagyl and cipro 07/19: White count normal today. change medications to Po. medically stable to go for inpt psych unit. 07/20; positive for C. def. patient not eating properly, refusing meds time to time. Psych now recommended outpt f/u. CM working on placement. Patient remains nonverbal, does not follow any commend and not giving any personal info. 07/21; K 2.0 today, cont to replete, follow BMP, patient remains nonverbal and not cooperative. refuses to eat and meds. cont d51/2NS. if condition doesnot improve will consider TF 07/22: Potassium level persistently remains low, magnesium 1.6 today. Will replete magnesium and potassium. Patient refusing meds and not eating at all per RN report. Totally noncooperative during the encounternot respond to any question. Keeps her eye closing and covering her face with her forearm. Will order for tube feeding and Dobbhoff tube. Continue to follow. We will also add Megace to boost appetite. 07/23: started on TF, follow BMP, change iv fluid to 1/2 NS. patient remains nonverbal 07/24; clinically unchanged, replete K, iv fluid and TF. reconsult psych as patient remains in catatonic phase 07/25: psych recommendation noted, continue tube feeding, continue to replete electrolytes as needed, follow BMP. I strongly believe her severe electrolytes derangement and encephalopathy related to her catatonia, poor oral intake other than any underlying medical conditions. There is no family contact in file, no home address available, patient appeared to be unfunded. retail advertising sales manager working on placement. 07/26: psych recommendation noted, continue tube feeding, continue to replete electrolytes as needed, follow BMP. I strongly believe her severe electrolytes derangement and encephalopathy related to her catatonia, poor oral intake other than any underlying medical conditions. There is no family contact in file, no home address available, patient appeared to be unfunded. retail advertising sales manager working on placement. 07/27; continue with tube feeding. There is no family contact in file, no home a ddress available, patient appeared to be unfunded. Case management is following. 07/28; patient still on tube feeding, patient is noncommunicative. I believe her condition is related to her catatonia. Psych is following her. Currently her electrolytes are corrected. There is no family contact in file, no home address available, patient appeared to be unfunded. Case management is following. History Interval history: Patient was seen and evaluated this morning Patient is noncommunicative, altered On NG tube feeding Hospitalist Physical - Physical exam Narrative exam: Patient is noncommunicative, NG tube in place The patient appeared well nourished and normally developed. Vital signs as documented. Head exam is unremarkable. No scleral icterus . Neck is without jugular venous distension, thyromegaly, or carotid bruits. Lungs are clear to auscultation. Cardiac exam reveals regular rate and Rhythm. Abdominal exam reveals normal bowel sounds, nontender, no organomegaly. Extremities are nonedematous and both femoral and pedal pulses are normal. QUALITY ASSURANCE COACH: Patient is noncommunicative. - Constitutional Vitals: Temp Pulse Resp BP Pulse Ox 98.8 F 104 H 18 104/68 97 07/28/20 05:54 07/27/20 22:33 07/28/20 05:54 07/28/20 05:54 07/27/20 22:33 General appearance: Present: no acute distress, well-nourished, other (Hallucinating) HEART Score - HEART Score Risk factors: 1-2 risk factors Troponin: Troponin T < 0.010 ng/mL (0.00-0.029) 07/11/20 21:17 Troponin: < normal limit - Critical Actions Critical Actions: 0-3 pts:0.9-1.7%risk of adverse cardiac event.Candidate for discharge Results - Labs CBC & Chem 7: 07/26/20 07:30 07/28/20 05:00 Labs: Laboratory Last Values WBC 9.5 K/mm3 (4.5-11.0) 07/26/20 07:30 RBC 4.17 M/mm3 (3.65-5.03) 07/26/20 07:30 Hgb 13.9 gm/dl (10.1-14.3) 07/26/20 07:30 Hct 40.4 % (30.3-42.9) 07/26/20 07:30 MCV 97 fl (79-97) 07/26/20 07:30 MCH 33 pg (28-32) H 07/26/20 07:30 MCHC 34 % (30-34) 07/26/20 07:30 RDW 14.4 % (13.2-15.2) 07/26/20 07:30 Plt Count 464 K/mm3 (140-440) H 07/26/20 07:30 Lymph % (Auto) 21.6 % (13.4-35.0) 07/26/20 07:30 [place]iscoe % (Auto) 6.2 % (0.0-7.3) 07/26/20 07:30 Eos % (Auto) 0.5 % (0.0-4.3) 07/26/20 07:30 Baso % (Auto) 0.3 % (0.0-1.8) 07/26/20 07:30 Lymph # (Auto) 2.0 K/mm3 (1.2-5.4) 07/26/20 07:30 Briscoe # (Auto) 0.6 K/mm3 (0.0-0.8) 07/26/20 07:30 Eos # (Auto) 0.1 K/mm3 (0.0-0.4) 07/26/20 07:30 Baso # (Auto) 0.0 K/mm3 (0.0-0.1) 07/26/20 07:30 Seg Neutrophils % 71.4 % (40.0-70.0) H 07/26/20 07:30 Seg Neutrophils # 6.8 K/mm3 (1.8-7.7) 07/26/20 07:30 Sodium 135 mmol/L (137-145) L 07/28/20 05:00 Potassium 5.1 mmol/L (3.6-5.0) H 07/28/20 05:00 Chloride 98.6 mmol/L (98-107) 07/28/20 05:00 Carbon Dioxide 21 mmol/L (22-30) L 07/28/20 05:00 Anion Gap 21 mmol/L 07/28/20 05:00 BUN 11 mg/dL (7-17) 07/28/20 05:00 Creatinine 0.3 mg/dL (0.6-1.2) L 07/28/20 05:00 Estimated GFR > 60 ml/min 07/28/20 05:00 BUN/Creatinine Ratio 37 % 07/28/20 05:00 Glucose 131 mg/dL (65-100) H 07/28/20 05:00 POC Glucose 148 (70-105) H 07/27/20 23:40 Lactic Acid 1.50 mmol/L (0.7-2.0) 07/12/20 00:04 Phosphorus 3.10 mg/dL (2.5-4.5) 07/24/20 06:00 Magnesium 2.10 mg/dL (1.7-2.3) 07/24/20 06:00 Calcium 8.9 mg/dL (8.4-10.2) 07/28/20 05:00 Total Bilirubin 0.70 mg/dL (0.1-1.2) 07/13/20 09:33 Direct Bilirubin < 0.2 mg/dL (0-0.2) 07/13/20 09:33 AST 83 units/L (5-40) H 07/13/20 09:33 ALT 54 units/L (7-56) 07/13/20 09:33 Alkaline Phosphatase 46 units/L (35-129) 07/13/20 09:33 Ammonia 28.0 umol/L (25-60) 07/11/20 21:17 Total Creatine Kinase 102 units/L (30-135) 07/17/20 05:21 CK-MB (CK-2) 9.2 ng/mL (0.0-4.0) H 07/12/20 15:13 CK-MB (CK-2) Rel Index 0.4 (0-4) 07/12/20 15:13 Troponin T < 0.010 ng/mL (0.00-0.029) 07/11/20 21:17 Total Protein 5.3 g/dL (6.3-8.2) L D 07/13/20 09:33 Albumin 3.0 g/dL (3.9-5) L 07/13/20 09:33 Albumin/Globulin Ratio 1.3 % 07/13/20 09:33 Urine Color Yellow (Yellow) 07/11/20 Unknown Urine Turbidity Clear (Clear) 07/11/20 Unknown Urine pH 6.0 (5.0-7.0) 07/11/20 Unknown Ur Specific Sheldon 1.023 (1.003-1.030) 07/11/20 Unknown Urine Protein 30 mg/dl mg/dL (Negative) 07/11/20 Unknown Urine Glucose (UA) Neg mg/dL (Negative) 07/11/20 Unknown Urine Ketones Tr mg/dL (Negative) 07/11/20 Unknown Urine Blood Neg (Negative) 07/11/20 Unknown Urine Nitrite Neg (Negative) 07/11/20 Unknown Urine Bilirubin Neg (Negative) 07/11/20 Unknown Urine Urobilinogen 2.0 mg/dL (<2.0) 07/11/20 Unknown Ur Leukocyte Esterase Neg (Negative) 07/11/20 Unknown Urine WBC (Auto) 2.0 /HPF (0.0-6.0) 07/11/20 Unknown Urine RBC (Auto) 3.0 /HPF (0.0-6.0) 07/11/20 Unknown U Epithel Cells (Auto) 3.0 /HPF (0-13.0) 07/11/20 Unknown Urine Mucus 3+ /HPF 07/11/20 Unknown Salicylates < 0.3 mg/dL (2.8-20.0) L 07/11/20 21:17 Urine Opiates Screen Presumptive negative 07/11/20 Unknown Urine Methadone Screen Presumptive negative 07/11/20 Unknown Acetaminophen 5.0 ug/mL (10.0-30.0) L 07/11/20 21:17 Ur Barbiturates Screen Presumptive negative 07/11/20 Unknown Valproic Acid 7.7 ug/mL (50-100) L 07/19/20 08:12 Ur Phencyclidine Scrn Presumptive negative 07/11/20 Unknown Ur Amphetamines Screen Presumptive negative 07/11/20 Unknown U Benzodiazepines Scrn Presumptive negative 07/11/20 Unknown Urine Cocaine Screen Presumptive negative 07/11/20 Unknown U Marijuana (THC) Screen Presumptive negative 07/11/20 Unknown Drugs of Abuse Note Disclamer 07/11/20 Unknown C. difficile Tox (PCR) Positive (Negative) 07/19/20 18:51 Ledesma/IV: Voiding Method Incontinent IV Catheter Type [Left Forearm INT / Saline Lock ] IV Catheter Type [Right Hand] Peripheral IV IV Catheter Type [Right Peripheral IV Forearm] IV Catheter Type [Left Hand] INT / Saline Lock Active Medications - Current Medications Current Medications: Generic Name Dose Route Start Last Admin Trade Name Freq PRN Reason Stop Dose Admin Acetaminophen 650 mg 07/12/20 01:05 07/27/20 01:57 Tylenol MI 650 mg Q4H PRN Administration Fever >101 Lipase/Protease/Amylase 1 each 07/22/20 07:[address] 10,500 Unit FEEDTUBE PRN PRN For Clogged Feeding Tube Haloperidol Lactate 5 mg 07/18/20 13:15 07/21/20 22:06 Haldol IM 5 mg Q6H PRN Administration Agitation Heparin Sodium (Porcine) 5,000 unit 07/12/20 10:00 07/28/20 03:30 Heparin SUB-Q 5,000 unit Q8H KEITH Administration Sodium Chloride 1,000 mls @ 75 mls/hr 07/23/20 17:00 07/28/20 03:30 Nacl 0.45% 1000 Ml IV 75 mls/hr DIRECT KEITH Administration Insulin Human Regular 0 unit 07/23/20 09:00 07/28/20 00:00 Humulin R SUB-Q Not Given Q6HR KEITH Protocol Lorazepam 0.5 mg 07/18/20 13:17 Ativan PO Q4H PRN Anxiety Megestrol Acetate 400 mg 07/22/20 10:00 07/27/20 13:15 Megestrol PO 400 mg QDAY KEITH Administration Olanzapine 2.5 mg 07/25/20 22:00 07/27/20 23:05 Zyprexa PO 2.5 mg QHS KEITH Administration Ondansetron HCl 4 mg 07/12/20 01:06 Zofran IV Q8H PRN Nausea And Vomiting Simple Syrup 15 ml 07/22/20 07:44 Simple Syrup FEEDTUBE PRN PRN Hypoglycemia Simple Syrup 30 ml 07/22/20 07:44 Simple Syrup FEEDTUBE PRN PRN Hypoglycemia Sodium Bicarbonate 325 mg 07/22/20 07:44 Sodium Bicarbonate FEEDTUBE PRN PRN For Clogged Feeding Tube Valproic Acid 250 mg 07/25/20 22:00 07/27/20 23:04 Depkareem Rowe FEEDTUBE 250 mg BID KEITH Administration Vancomycin HCl 125 mg 07/20/20 09:30 07/28/20 06:39 Vancomycin Po PO 08/03/20 06:01 125 mg Q6HR KEITH Administration Nutrition/Malnutrition Assess - Dietary Evaluation Nutrition/Malnutrition Findings: Nutrition Notes Start: 07/12/20 11:40 Freq: Status: Active Protocol: Document 07/27/20 13:45 SHIRLEY (Rec: 07/27/20 13:49 SHIRLEY [id number]) Co-Sign 07/27/20 13:45 LP Nutrition Notes Initial or Follow up Reassessment Other Pertinent Diagnosis AMS, Rhabdomyolysis, dehydration, Hx of stroke Current Diet Osmolite 1.5 at 35ml/hr Labs/Tests Na 136 Pertinent Medications NS 75ml/hr Height 5 ft Weight 53 kg Hines Body Weight (kg) 45.45 BMI 22.8 Weight Status Appropriate Subjective/Other Information Per RN pt is tolerating TF at goal rate. Percent of energy/protein needs met: 100%/90% Burn Absent Trauma Absent GI Symptoms None Current % PO Negligible Minimum of two criteria No Energy Intake (severe) < or equal to 50% Estimated Energy Requirement > or equal to 5 days #1 Nutrition Diagnosis Inadequate oral intake Diagnosis Progress(for reassessment Continues documentation) Is patient on ventilator? No Is Patient Ambulatory and/or Out of Bed No REE-([facility]-confined to bed) [phone] Calculation Used for Recommendations [facility] Additional Notes Protein Needs 59-70g (1-1.2g/ kg) Fluid Needs: 1ml/kcal Nutrition Intervention Change Diet Order: TF Nutrition Support: Osmolite 1.5 at 35ml/hr. Flush with 175ml q4h for hypernatremia. Flush 100ml q4hr with Na WNL Kcal 1,260 Protein (gm) 53 Fluid (mL) 640 Goal #1 Meet at least 80% of kcal and protein needs Anticipated Discharge Needs: unable to determine at this time Follow-Up By: 08/03/20 Additional Comments F/u stable TF and Na
[2020-07-28] MEDS: VALPROIC ACID 250 MG/5 ML ORAL LIQD FEEDTUBE SCH ×2 (11:41→22:02)
[2020-07-28] MEDS: MEGESTROL 400 MG/10 ML ORAL LIQD PO SCH (11:45)
[2020-07-29] MEDS: HEPARIN 5,000 UNIT/1 ML VIAL SUB-Q SCH ×3 (01:05→17:09)
[2020-07-29] MEDS: VANCOMYCIN 250 MG/10 ML ORAL LIQD PO SCH ×3 (06:18→17:09)
[2020-07-29 06:27] LABS: Blood Urea Nitrogen 12 mg/dL (7-17); Calcium 9.1 mg/dL (8.4-10.2); Hemolysis Index 6
[2020-07-29 06:30] LABS: BUN/Creatinine Ratio 40
[2020-07-29] MEDS: INSULIN REGULAR, HUMAN 100 UNIT/ML 3ML VIAL SUB-Q SCH ×3 (06:52→17:14)
[2020-07-29] MEDS: SODIUM CHLORIDE 0.45% 1000 ML 1,000 ML IV SCH ×2 (06:52→22:33)
[2020-07-29] MEDS: MEGESTROL 400 MG/10 ML ORAL LIQD PO SCH (10:51)
[2020-07-29] MEDS: VALPROIC ACID 250 MG/5 ML ORAL LIQD FEEDTUBE SCH ×2 (10:51→22:33)
--- NOTE | 2020-07-29 11:51 | Progress Note ---
Subjective Date of service: 07/29/20 Interval history: Assessment and plan: -- C. def colitis Continue vancomycin po for 2 weeks total - 08/03/20 end date --Severe hypokalemia: Resolved Today's lab results reviewed --Hypomagnesemia, improved -- Rhabdomyolysis-resolved Preserved renal function, cont IV hydration --Schizo affective disorder; Psych evaluation and recommendations noted patient refusing meds and oral diet Management per psych, Recommend outpt f/u --Acute metabolic encephalopathy /altered mental state Multifactorial , schizoaffective disorder Patient came from [place], psych evaluation noted Psych now recommended for outpt f/u Continue NG tube feedings --Severe dehydration; improved continue IV hydration Input output monitoring Encourage plenty oral fluids but she is not taking any --transaminitis:- Probably secondary to rhabdo Improved --Poor oral intake with electrolyte imbalance Continue nasogastric tube feedings --DVT prophylaxis; Heparin subcu Closely monitor the patient and adjust management as needed Plan of care reviewed with the patient's nurse Psych recommended outpt f/u Brief history: 60-year-old female patient was sent from [facility] with altered level of consciousness and poor oral intake. Patient has schizoaffective disorder with active hallucinations and confusion, Patient was noted to have rhabdomyolysis and multiple electrolyte imbalances, Rhabdomyolysis is resolved, mild hypokalemia and hypo-phosphatemia - being corrected. Then she developed diarrhea - now positive for C. def, on vancomycin po. Patient remained in catatonic state, does not follow any command, does not want to eat and refuse meds. I strongly believe her electrolytes derangement and encephalopathy related to her catatonia, poor oral intake other than any underlying medical conditions. 07/13; patient's CK levels trending down on 1678, continue IV hydration patient is more alert at times, hallucinating Noncommunicative, severe hypokalemia, replace per protocol 07/14; potassium level significantly improved today to 3.2, replenish per protocol. CK levels trending down 828, continue IV hydration, monitor electrolytes 07/15; patient refused potassium yesterday today potassium levels again 2.7 We will add KCl to IV fluids, and IV K riders, monitor electrolytes. CK level 425. Refusing to eat confused noncommunicative. Possible inpatient psych admission when medically stable 07/16; rhabdomyolysis resolved, mild electrolyte imbalances, if corrected medically stable for inpatient psych placement 07/17: replete K and phosphate. repeat CBc BMP tomorrow. White count needs to be < 10 for inpt psych admission 07/18: cont to have mildly elevated white count, c/o loose stool. will check for C. def - start flagyl and cipro 07/19: White count normal today. change medications to Po. medically stable to go for inpt psych unit. 07/20; positive for C. def. patient not eating properly, refusing meds time to time. Psych now recommended outpt f/u. CM working on placement. Patient remains nonverbal, does not follow any commend and not giving any personal info. 07/21; K 2.0 today, cont to replete, follow BMP, patient remains nonverbal and not cooperative. refuses to eat and meds. cont d51/2NS. if condition doesnot im prove will consider TF 07/22: Potassium level persistently remains low, magnesium 1.6 today. Will r eplete magnesium and potassium. Patient refusing meds and not eating at all per RN report. Totally noncooperative during the encounternot respond to any question. Keeps her eye closing and covering her face with her forearm. Will order for tube feeding and Dobbhoff tube. Continue to follow. We will also add Megace to boost appetite. 07/23: started on TF, follow BMP, change iv fluid to 1/2 NS. patient remains nonverbal 07/24; clinically unchanged, replete K, iv fluid and TF. reconsult psych as patient remains in catatonic phase 07/25: psych recommendation noted, continue tube feeding, continue to replete electrolytes as needed, follow BMP. I strongly believe her severe electrolytes derangement and encephalopathy related to her catatonia, poor oral intake other than any underlying medical conditions. There is no family contact in file, no home address available, patient appeared to be unfunded. respiratory services manager working on placement. 07/26: psych recommendation noted, continue tube feeding, continue to replete electrolytes as needed, follow BMP. I strongly believe her severe electrolytes derangement and encephalopathy related to her catatonia, poor oral intake other than any underlying medical conditions. There is no family contact in file, no home address available, patient appeared to be unfunded. respiratory services manager working on placement. 9/25; continue with tube feeding. There is no family contact in file, no home address available, patient appeared to be unfunded. Case management is following. 07/28; patient still on tube feeding, patient is noncommunicative. I believe her condition is related to her catatonia. Psych is following her. Currently her electrolytes are corrected. There is no family contact in file, no home address available, patient appeared to be unfunded. Case management is following. 07/29 patient is nonverbal, eyes open does not follow simple commands,, still having low-grade fever T-max 100 degrees,, lab results reviewed discussed with RN- still has loose stools, case managers notes reviewed, unable to contact family Objective - Constitutional Vitals: Vital Signs - 12hr 07/29/20 07/29/20 04:31 10:50 Temperature 98.2 F 99.9 F H Pulse Rate 99 H 106 H Respiratory 16 20 Rate Blood Pressure 105/67 143/86 O2 Sat by Pulse 98 98 Oximetry General appearance: Present: no acute distress, other (Unresponsive) - EENT Eyes: PERRL - Neck Neck: supple, no masses or JVD - Respiratory Respiratory effort: normal Respiratory: bilateral: CTA - Cardiovascular Rhythm: regular Extremities: No edema, normal color - Gastrointestinal General gastrointestinal: Present: soft, non-tender Rectal Exam: deferred - Integumentary Integumentary: clear - Neurologic Neurologic: other (Patient is nonverbal unresponsive and does not follow simple commands) - Labs CBC & Chem 7: 07/26/20 07:30 07/29/20 05:36 Labs: Abnormal lab results 07/28/20 07/28/20 07/29/20 Range/Units 18:06 23:53 05:36 Creatinine 0.3 L (0.6-1.2) mg/dL Glucose 149 H (65-100) mg/dL POC Glucose 160 H 118 H (70-105) 07/29/20 Range/Units 06:46 Creatinine (0.6-1.2) mg/dL Glucose (65-100) mg/dL POC Glucose 119 H (70-105) HEART Score - HEART Score Risk factors: 1-2 risk factors Troponin: Troponin T < 0.010 ng/mL (0.00-0.029) 07/11/20 21:17 Troponin: < normal limit - Critical Actions Critical Actions: 0-3 pts:0.9-1.7%risk of adverse cardiac event.Candidate for discharge
[2020-07-30] MEDS: INSULIN REGULAR, HUMAN 100 UNIT/ML 3ML VIAL SUB-Q SCH ×4 (00:15→17:30)
[2020-07-30] MEDS: VANCOMYCIN 250 MG/10 ML ORAL LIQD PO SCH ×4 (00:15→19:20)
[2020-07-30] MEDS: HEPARIN 5,000 UNIT/1 ML VIAL SUB-Q SCH ×3 (01:38→19:21)
[2020-07-30] MEDS: VALPROIC ACID 250 MG/5 ML ORAL LIQD FEEDTUBE SCH ×2 (09:37→22:27)
[2020-07-30] MEDS: MEGESTROL 400 MG/10 ML ORAL LIQD PO SCH (09:37)
--- NOTE | 2020-07-30 10:07 | Progress Note ---
Subjective Date of service: 07/30/20 Interval history: Assessment and plan: -- C. diff colitis Continue vancomycin po for 2 weeks total - stop date08/03/20 Diarrhea secondary to #1 Appears to have improved as per discussion with RN --Severe hypokalemia: Resolved --Hypomagnesemia, improved -- Rhabdomyolysis-resolved --Schizo affective disorder; Psych evaluation and recommendations noted patient refusing meds and oral diet/on NG tube feeds Management per psych, Recommend outpt f/u --Acute metabolic encephalopathy /altered mental state Multifactorial , schizoaffective disorder Patient came from [place], psych evaluation noted Psych now recommended for outpt f/u Continue NG tube feedings --Severe dehydration; improved Stop IV fluids Monitor electrolytes as needed Continue NG tube feeds with free water via NG tube --transaminitis:- Probably secondary to rhabdo Improved --Poor oral intake with electrolyte imbalance Continue nasogastric tube feedings --DVT prophylaxis; Heparin subcu Closely monitor the patient and adjust management as needed Plan of care reviewed with the patient's nurse Psych recommended outpt f/u healthcare project managersales product manager reviewed Unable to contact family Brief history: 60-year-old female patient was sent from [facility] with altered level of consciousness and poor oral intake. Patient has schizoaffective disorder with active hallucinations and confusion, Patient was noted to have rhabdomyolysis and multiple electrolyte imbalances, Rhabdomyolysis is resolved, mild hypokalemia and hypo-phosphatemia - being corrected. Then she developed diarrhea - now positive for C. def, on vancomycin po. Patient remained in catatonic state, does not follow any command, does not want to eat and refuse meds. I strongly believe her electrolytes derangement and encephalopathy related to her catatonia, poor oral intake other than any underlying medical conditions. 07/13; patient's CK levels trending down on 1678, continue IV hydration patient is more alert at times, hallucinating Noncommunicative, severe hypokalemia, replace per protocol 07/14; potassium level significantly improved today to 3.2, replenish per protocol. CK levels trending down 828, continue IV hydration, monitor electrolytes 07/15; patient refused potassium yesterday today potassium levels again 2.7 We will add KCl to IV fluids, and IV K riders, monitor electrolytes. CK level 425. Refusing to eat confused noncommunicative. Possible inpatient psych admission when medically stable 07/16; rhabdomyolysis resolved, mild electrolyte imbalances, if corrected medically stable for inpatient psych placement 07/17: replete K and phosphate. repeat CBc BMP tomorrow. White count needs to be < 10 for inpt psych admission 07/18: cont to have mildly elevated white count, c/o loose stool. will check for C. def - start flagyl and cipro 07/19: White count normal today. change medications to Po. medically stable to go for inpt psych unit. 07/20; positive for C. def. patient not eating properly, refusing meds time to time. Psych now recommended outpt f/u. CM working on placement. Patient remains nonverbal, does not follow any commend and not giving any personal info. 07/21; K 2.0 today, cont to replete, follow BMP, patient remains nonverbal and not cooperative. refuses to eat and meds. cont d51/2NS. if condition doesnot improve will consider TF 07/22: Potassium level persistently remains low, magnesium 1.6 today. Will replete magnesium and potassium. Patient refusing meds and not eating at all per RN report. Totally noncooperative during the encounternot respond to any question. Keeps her eye closing and covering her face with her forearm. Will order for tube feeding and Dobbhoff tube. Continue to follow. We will also add Megace to boost appetite. 07/23: started on TF, follow BMP, change iv fluid to 1/2 NS. patient remains nonverbal 07/24; clinically unchanged, replete K, iv fluid and TF. reconsult psych as patient remains in catatonic phase 07/25: psych recommendation noted, continue tube feeding, continue to replete electrolytes as needed, follow BMP. I strongly believe her severe electrolytes derangement and encephalopathy related to her catatonia, poor oral intake other than any underlying medical conditions. There is no family contact in file, no home address available, patient appeared to be unfunded. healthcare project manager working on placement. 07/26: psych recommendation noted, continue tube feeding, continue to replete electrolytes as needed, follow BMP. I strongly believe her severe electrolytes derangement and encephalopathy related to her catatonia, poor oral intake other than any underlying medical conditions. There is no family contact in file, no home address available, patient appeared to be unfunded. healthcare project manager working on placement. 07/27; continue with tube feeding. There is no family contact in file, no home address available, patient appeared to be unfunded. Case management is following. 07/28; patient still on tube feeding, patient is noncommunicative. I believe her condition is related to her catatonia. Psych is following her. Currently her electrolytes are corrected. There is no family contact in file, no home address available, patient appeared to be unfunded. Case management is following. 07/29 patient is nonverbal, eyes open does not follow simple commands,, still having low-grade fever T-max 100 degrees,, lab results reviewed discussed with RN- still has loose stools, oil field caser notes reviewed, unable to contact family 07/30 no acute events overnight, diarrhea improved, stop IV fluids, disposition to be decided Objective - Constitutional Vitals: Vital Signs - 12hr 07/30/20 04:36 Temperature 98.7 F Pulse Rate 93 H Respiratory 18 Rate Blood Pressure 111/73 O2 Sat by Pulse 98 Oximetry General appearance: Present: no acute distress, other (Nonverbal, awake) - EENT Eyes: PERRL - Neck Neck: supple, no masses or JVD - Respiratory Respiratory effort: normal Respiratory: bilateral: CTA, diminished - Cardiovascular Rhythm: regular Extremities: No edema - Gastrointestinal General gastrointestinal: Present: soft, non-tender Rectal Exam: deferred - Genitourinary Female genitourinary: deferred - Integumentary Integumentary: clear - Neurologic Neurologic: other (Awake, nonverbal) - Labs CBC & Chem 7: 07/26/20 07:30 07/29/20 05:36 Labs: Abnormal lab results 07/29/20 07/29/20 07/29/20 Range/Units 12:08 17:29 23:49 POC Glucose 126 H 148 H 119 H (70-105) 07/30/20 Range/Units 05:48 POC Glucose 119 H (70-105) HEART Score - HEART Score Risk factors: 1-2 risk factors Troponin: Troponin T < 0.010 ng/mL (0.00-0.029) 07/11/20 21:17 Troponin: < normal limit - Critical Actions Critical Actions: 0-3 pts:0.9-1.7%risk of adverse cardiac event.Candidate for discharge
--- NOTE | 2020-07-30 18:56 | XRay Report ---
ABDOMEN 1 VIEW(S) 07/30/2020 5:48 PM INDICATION / CLINICAL INFORMATION: dobhoff for feeding placement. COMPARISON: 11:44 AM same day FINDINGS: The tip of a weighted feeding tube remains doubled back upon itself with tip in proximal stomach poin [place] towards left. Signer Name: Daryl Melvin MD Signed: 07/30/2020 6:52 PM Workstation Name: [id number]
--- NOTE | 2020-07-31 02:58 | XRay Report ---
XR abdomen 1V ap INDICATION: need to know the position of ng tube. COMPARISON: Exam done earlier on 07/30/2020. FINDINGS: The tip of the feeding tube is coiled in the stomach. Signer Name: Rudolph Montana MD Signed: 07/31/2020 2:54 AM Workstation Name: [id number]
[2020-07-31] MEDS: HEPARIN 5,000 UNIT/1 ML VIAL SUB-Q SCH ×3 (04:31→17:13)
[2020-07-31] MEDS: VANCOMYCIN 250 MG/10 ML ORAL LIQD PO SCH ×5 (04:32→23:13)
[2020-07-31] MEDS: INSULIN REGULAR, HUMAN 100 UNIT/ML 3ML VIAL SUB-Q SCH ×4 (04:32→17:13)
--- NOTE | 2020-07-31 05:18 | XRay Report ---
XR abdomen 1V ap INDICATION: for ng tube replacement. COMPARISON: Exam done earlier on 07/31/2020 FINDINGS: The tip of the feeding tube projects over the body the stomach. Signer Name: Rudolph Montana MD Signed: 07/31/2020 5:13 AM Workstation Name: [id number]
[2020-07-31] MEDS: VALPROIC ACID 250 MG/5 ML ORAL LIQD FEEDTUBE SCH ×2 (10:40→23:14)
[2020-07-31] MEDS: MEGESTROL 400 MG/10 ML ORAL LIQD PO SCH (10:40)
[2020-07-31 12:57] LABS: Blood Urea Nitrogen 19 mg/dL (7-17); Calcium 9.1 mg/dL (8.4-10.2); Hemolysis Index 16
[2020-07-31 13:03] LABS: BUN/Creatinine Ratio 63
--- NOTE | 2020-07-31 15:36 | Progress Note ---
Assessment and Plan - Patient Problems (1) C. difficile diarrhea Current Visit: Yes Status: Acute Plan to address problem: 07/19 C. difficile positive P.o. Vancomycin 105 mg every 6 hours (07/20 through 08/03) Contact isolation Supportive care (2) Schizoaffective disorder Current Visit: Yes Status: Chronic Plan to address problem: Patient admitted catatonic state and is nonverbal at this time following commands Psychiatric consult completed; does not recommend inpatient at this time Haldol as needed, Depakote, Zyprexa Supportive care (3) Transaminitis Current Visit: Yes Status: Resolved Plan to address problem: Probably secondary to rhabdo 07/11 AST 86, ALT 68, alkaline phosphorus 60 07/13 AST 83, ALT 54, alkaline phosphorus 44 (4) Metabolic encephalopathy Current Visit: Yes Status: Acute Plan to address problem: Multifactorial , schizoaffective disorder Patient came from [place], psych evaluation noted Psych now recommended for outpt f/u Continue NG tube feedings (5) Rhabdomyolysis Current Visit: Yes Status: Resolved Qualifiers: Rhabdomyolysis type: non-traumatic Qualified Code(s): M62.82 - Rhabdomyolysis Plan to address problem: Presented with CK 1998 on 07/11, improved to 828 on 07/14, 102 on 07/17 s/p IV fluid (6) Dehydration Current Visit: Yes Status: Resolved Plan to address problem: S/p IV fluids Trend BMP replete as needed TF with FWF via DHT (7) Hyponatremia Current Visit: Yes Status: Acute Plan to address problem: Admit sodium 142 07/31 134, slight hyponatremia at this time no intervention needed Hydration with free water flush Trend BMP (8) Metabolic acidosis Current Visit: Yes Status: Acute Plan to address problem: Admit CO2 27 07/15 trended down to 16 07/31 CO2 21 Trend BMP (9) DVT prophylaxis Current Visit: Yes Status: Acute Plan to address problem: SCDs to bilateral lower extremities while in bed Heparin subcu History Interval history: 60-year-old female patient with schizoaffective disorder with active hallucinations and confusion presented from [place] for altered mental status and poor intake on 07/13. She was found to have rhabdomyolysis and electrolyte imbalances. She then developed C. difficile diarrhea. Patient remains in catatonic state does not follow any commands and is nonverbal. She had a Dobbhoff tube in place with tube feeds infusing. RN reported no episodes tried to bring up with the patient at bedside however his machine was not working. No acute events reported overnight. 07/13; patient's CK levels trending down on 1678, continue IV hydration patient is more alert at times, hallucinating, Noncommunicative, severe hypokalemia, replace per protocol 07/14; potassium level significantly improved today to 3.2, replenish per protocol. CK levels trending down 828, continue IV hydration, monitor electrolytes 07/15; patient refused potassium yesterday today potassium levels again 2.7 We will add KCl to IV fluids, and IV K riders, monitor electrolytes. CK level 425. Refusing to eat confused noncommunicative. Possible inpatient psych admission when medically stable 07/16; rhabdomyolysis resolved, mild electrolyte imbalances, if corrected medically stable for inpatient psych placement 07/17: replete K and phosphate. repeat CBc BMP tomorrow. White count needs to be < 10 for inpt psych admission 07/18: cont to have mildly elevated white count, c/o loose stool. will check for C. def - start flagyl and cipro 07/19: White count normal today. change medications to Po. medically stable to go for inpt psych unit. 07/20; positive for C. def. patient not eating properly, refusing meds time to time. Psych now recommended outpt f/u. CM working on placement. Patient remains nonverbal, does not follow any commend and not giving any personal info. 07/21; K 2.0 today, cont to replete, follow BMP, patient remains nonverbal and not cooperative. refuses to eat and meds. cont d51/2NS. if condition doesnot improve will consider TF 07/22: Potassium level persistently remains low, magnesium 1.6 today. Will replete magnesium and potassium. Patient refusing meds and not eating at all per RN report. Totally noncooperative during the encounternot respond to any question. Keeps her eye closing and covering her face with her forearm. Will order for tube feeding and Dobbhoff tube. Continue to follow. We will also add Megace to boost appetite. 07/23: started on TF, follow BMP, change iv fluid to 1/2 NS. patient remains nonverbal 07/24; clinically unchanged, replete K, iv fluid and TF. reconsult psych as patient remains in catatonic phase 07/25: psych recommendation noted, continue tube feeding, continue to replete electrolytes as needed, follow BMP. I strongly believe her severe electrolytes derangement and encephalopathy related to her catatonia, poor oral intake other than any underlying medical conditions. There is no family contact in file, no home address available, patient appeared to be unfunded. horse stud manager working on placement. 07/26: psych recommendation noted, continue tube feeding, continue to replete electrolytes as needed, follow BMP. I strongly believe her severe electrolytes derangement and encephalopathy related to her catatonia, poor oral intake other than any underlying medical conditions. There is no family contact in file, no home address available, patient appeared to be unfunded. horse stud manager working on placement. 07/27; continue with tube feeding. There is no family contact in file, no home address available, patient appeared to be unfunded. Case management is following. 07/28; patient still on tube feeding, patient is noncommunicative. I believe her condition is related to her catatonia. Psych is following her. Currently her electrolytes are corrected. There is no family contact in file, no home address available, patient appeared to be unfunded. Case management is following. 07/29 patient is nonverbal, eyes open does not follow simple commands,, still having low-grade fever T-max 100 degrees,, lab results reviewed discussed with R N- still has loose stools, case resolution specialist notes reviewed, unable to contact family 07/30 no acute events overnight, diarrhea improved, stop IV fluids, disposition to be decided Hospitalist Physical - Constitutional Vitals: Temp Pulse Resp BP Pulse Ox 99.1 F 94 H 18 108/65 93 07/31/20 11:23 07/31/20 11:23 07/31/20 11:23 07/31/20 11:23 07/31/20 11:23 General appearance: Present: no acute distress, other (Nonverbal, awake) - EENT Eyes: Present: PERRL - Neck Neck: Present: supple, normal ROM - Respiratory Respiratory effort: normal Respiratory: bilateral: CTA - Cardiovascular Rhythm: regular Heart Sounds: Present: S1 & S2. Absent: systolic murmur, diastolic murmur - Extremities Extremities: no ischemia, pulses intact, pulses symmetrical, No edema, normal temperature, normal color, Full ROM Peripheral Pulses: within normal limits - Abdominal General gastrointestinal: soft, non-tender, non-distended, normal bowel sounds - Integumentary Integumentary: Present: clear, warm, dry - Psychiatric Psychiatric: other (Patient is nonverbal, does not follow any commands however does withdraw to pain to all 4 extremities) - Neurologic Neurologic: moves all extremities - Allied Health Allied health notes reviewed: nursing, social work, case management HEART Score - HEART Score Risk factors: 1-2 risk factors Troponin: Troponin T < 0.010 ng/mL (0.00-0.029) 07/11/20 21:17 Troponin: < normal limit - Critical Actions Critical Actions: 0-3 pts:0.9-1.7%risk of adverse cardiac event.Candidate for discharge Results - Labs CBC & Chem 7: 07/26/20 07:30 07/31/20 11:55 Labs: Laboratory Last Values WBC 9.5 K/mm3 (4.5-11.0) 07/26/20 07:30 RBC 4.17 M/mm3 (3.65-5.03) 07/26/20 07:30 Hgb 13.9 gm/dl (10.1-14.3) 07/26/20 07:30 Hct 40.4 % (30.3-42.9) 07/26/20 07:30 MCV 97 fl (79-97) 07/26/20 07:30 MCH 33 pg (28-32) H 07/26/20 07:30 MCHC 34 % (30-34) 07/26/20 07:30 RDW 14.4 % (13.2-15.2) 07/26/20 07:30 Plt Count 464 K/mm3 (140-440) H 07/26/20 07:30 Lymph % (Auto) 21.6 % (13.4-35.0) 07/26/20 07:30 [place] % (Auto) 6.2 % (0.0-7.3) 07/26/20 07:30 Eos % (Auto) 0.5 % (0.0-4.3) 07/26/20 07:30 Baso % (Auto) 0.3 % (0.0-1.8) 07/26/20 07:30 Lymph # (Auto) 2.0 K/mm3 (1.2-5.4) 07/26/20 07:30 [place] # (Auto) 0.6 K/mm3 (0.0-0.8) 07/26/20 07:30 Eos # (Auto) 0.1 K/mm3 (0.0-0.4) 07/26/20 07:30 Baso # (Auto) 0.0 K/mm3 (0.0-0.1) 07/26/20 07:30 Seg Neutrophils % 71.4 % (40.0-70.0) H 07/26/20 07:30 Seg Neutrophils # 6.8 K/mm3 (1.8-7.7) 07/26/20 07:30 Sodium 134 mmol/L (137-145) L 07/31/20 11:55 Potassium 4.3 mmol/L (3.6-5.0) 07/31/20 11:55 Chloride 97.0 mmol/L (98-107) L 07/31/20 11:55 Carbon Dioxide 21 mmol/L (22-30) L 07/31/20 11:55 Anion Gap 20 mmol/L 07/31/20 11:55 BUN 19 mg/dL (7-17) H 07/31/20 11:55 Creatinine 0.3 mg/dL (0.6-1.2) L 07/31/20 11:55 Estimated GFR > 60 ml/min 07/31/20 11:55 BUN/Creatinine Ratio 63 % 07/31/20 11:55 Glucose 116 mg/dL (65-100) H 07/31/20 11:55 POC Glucose 119 (70-105) H 07/31/20 12:34 Lactic Acid 1.50 mmol/L (0.7-2.0) 07/12/20 00:04 Phosphorus 3.10 mg/dL (2.5-4.5) 07/24/20 06:00 Magnesium 2.10 mg/dL (1.7-2.3) 07/24/20 06:00 Calcium 9.1 mg/dL (8.4-10.2) 07/31/20 11:55 Total Bilirubin 0.70 mg/dL (0.1-1.2) 07/13/20 09:33 Direct Bilirubin < 0.2 mg/dL (0-0.2) 07/13/20 09:33 AST 83 units/L (5-40) H 07/13/20 09:33 ALT 54 units/L (7-56) 07/13/20 09:33 Alkaline Phosphatase 46 units/L (35-129) 07/13/20 09:33 Ammonia 28.0 umol/L (25-60) 07/11/20 21:17 Total Creatine Kinase 102 units/L (30-135) 07/17/20 05:21 CK-MB (CK-2) 9.2 ng/mL (0.0-4.0) H 07/12/20 15:13 CK-MB (CK-2) Rel Index 0.4 (0-4) 07/12/20 15:13 Troponin T < 0.010 ng/mL (0.00-0.029) 07/11/20 21:17 Total Protein 5.3 g/dL (6.3-8.2) L D 07/13/20 09:33 Albumin 3.0 g/dL (3.9-5) L 07/13/20 09:33 Albumin/Globulin Ratio 1.3 % 07/13/20 09:33 Urine Color Yellow (Yellow) 07/11/20 Unknown Urine Turbidity Clear (Clear) 07/11/20 Unknown Urine pH 6.0 (5.0-7.0) 07/11/20 Unknown Ur Specific [place] 1.023 (1.003-1.030) 07/11/20 Unknown Urine Protein 30 mg/dl mg/dL (Negative) 07/11/20 Unknown Urine Glucose (UA) Neg mg/dL (Negative) 07/11/20 Unknown Urine Ketones Tr mg/dL (Negative) 07/11/20 Unknown Urine Blood Neg (Negative) 07/11/20 Unknown Urine Nitrite Neg (Negative) 07/11/20 Unknown Urine Bilirubin Neg (Negative) 07/11/20 Unknown Urine Urobilinogen 2.0 mg/dL (<2.0) 07/11/20 Unknown Ur Leukocyte Esterase Neg (Negative) 07/11/20 Unknown Urine WBC (Auto) 2.0 /HPF (0.0-6.0) 07/11/20 Unknown Urine RBC (Auto) 3.0 /HPF (0.0-6.0) 07/11/20 Unknown U Epithel Cells (Auto) 3.0 /HPF (0-13.0) 07/11/20 Unknown Urine Mucus 3+ /HPF 07/11/20 Unknown Salicylates < 0.3 mg/dL (2.8-20.0) L 07/11/20 21:17 Urine Opiates Screen Presumptive negative 07/11/20 Unknown Urine Methadone Screen Presumptive negative 07/11/20 Unknown Acetaminophen 5.0 ug/mL (10.0-30.0) L 07/11/20 21:17 Ur Barbiturates Screen Presumptive negative 07/11/20 Unknown Valproic Acid 7.7 ug/mL (50-100) L 07/19/20 08:12 Ur Phencyclidine Scrn Presumptive negative 07/11/20 Unknown Ur Amphetamines Screen Presumptive negative 07/11/20 Unknown U Benzodiazepines Scrn Presumptive negative 07/11/20 Unknown Urine Cocaine Screen Presumptive negative 07/11/20 Unknown U Marijuana (THC) Screen Presumptive negative 07/11/20 Unknown Drugs of Abuse Note Disclamer 07/11/20 Unknown C. difficile Tox (PCR) Positive (Negative) 07/19/20 18:51 Led[place]ma/IV: Voiding Method External Female Catheter IV Catheter Type [Left Forearm INT / Saline Lock ] IV Catheter Type [Right Hand] Peripheral IV IV Catheter Type [Right Peripheral IV Forearm] IV Catheter Type [Left Hand] INT / Saline Lock Active Medications - Current Medications Current Medications: Generic Name Dose Route Start Last Admin Trade Name Freq PRN Reason Stop Dose Admin Acetaminophen 650 mg 07/12/20 01:05 07/27/20 01:57 Tylenol SD 650 mg Q4H PRN Administration Fever >101 Lipase/Protease/Amylase 1 each 07/22/20 07:[address] 10,500 Unit FEEDTUBE PRN PRN For Clogged Feeding Tube Haloperidol Lactate 5 mg 07/18/20 13:15 07/21/20 22:06 Haldol IM 5 mg Q6H PRN Administration Agitation Heparin Sodium (Porcine) 5,000 unit 07/12/20 10:00 07/31/20 10:40 Heparin SUB-Q 5,000 unit Q8H KEITH Administration Insulin Human Regular 0 unit 07/23/20 09:00 07/31/20 13:13 Humulin R SUB-Q Not Given Q6HR KEITH Protocol Lorazepam 0.5 mg 07/18/20 13:17 Ativan PO Q4H PRN Anxiety Megestrol Acetate 400 mg 07/22/20 10:00 07/31/20 10:40 Megestrol PO 400 mg QDAY KEITH Administration Olanzapine 2.5 mg 07/25/20 22:00 07/30/20 22:27 Zyprexa PO 2.5 mg QHS KEITH Administration Ondansetron HCl 4 mg 07/12/20 01:06 Zofran IV Q8H PRN Nausea And Vomiting Simple Syrup 15 ml 07/22/20 07:44 Simple Syrup FEEDTUBE PRN PRN Hypoglycemia Simple Syrup 30 ml 07/22/20 07:44 Simple Syrup FEEDTUBE PRN PRN Hypoglycemia Sodium Bicarbonate 325 mg 07/22/20 07:44 Sodium Bicarbonate FEEDTUBE PRN PRN For Clogged Feeding Tube Valproic Acid 250 mg 07/25/20 22:00 07/31/20 10:40 Depakene Liq FEEDTUBE 250 mg BID KEITH Administration Vancomycin HCl 125 mg 07/20/20 09:30 07/31/20 13:15 Vancomycin Po PO 08/03/20 06:01 125 mg Q6HR KEITH Administration Nutrition/Malnutrition Assess - Dietary Evaluation Nutrition/Malnutrition Findings: Nutrition Notes Start: 07/12/20 11:40 Freq: Status: Active Protocol: Document 07/27/20 13:45 SHIRLEY (Rec: 07/27/20 13:49 SHIRLEY [id number]) Co-Sign 07/27/20 13:45 LP Nutrition Notes Initial or Follow up Reassessment Other Pertinent Diagnosis AMS, Rhabdomyolysis, dehydration, Hx of stroke Current Diet Osmolite 1.5 at 35ml/hr Labs/Tests Na 136 Pertinent Medications NS 75ml/hr Height 5 ft Weight 53 kg [place] Body Weight (kg) 45.45 BMI 22.8 Weight Status Appropriate Subjective/Other Information Per RN pt is tolerating TF at goal rate. Percent of energy/protein needs met: 100%/90% Burn Absent Trauma Absent GI Symptoms None Current % PO Negligible Minimum of two criteria No Energy Intake (severe) < or equal to 50% Estimated Energy Requirement > or equal to 5 days #1 Nutrition Diagnosis Inadequate oral intake Diagnosis Progress(for reassessment Continues documentation) Is patient on ventilator? No Is Patient Ambulatory and/or Out of Bed No REE-([facility]-confined to bed) 1225.020 Calculation Used for Recommendations Yumi Lam Additional Notes Protein Needs 59-70g (1-1.2g/ kg) Fluid Needs: 1ml/kcal Nutrition Intervention Change Diet Order: TF Nutrition Support: Osmolite 1.5 at 35ml/hr. Flush with 175ml q4h for hypernatremia. Flush 100ml q4hr with Na WNL Kcal 1,260 Protein (gm) 53 Fluid (mL) 640 Goal #1 Meet at least 80% of kcal and protein needs Anticipated Discharge Needs: unable to determine at this time Follow-Up By: 08/03/20 Additional Comments F/u stable TF and Na
[2020-07-31] MEDS ORDERED: SODIUM POLYSTYRENE 15 GM/60 ML ORAL LIQD PO ONE (16:52)
[2020-08-01] MEDS: INSULIN REGULAR, HUMAN 100 UNIT/ML 3ML VIAL SUB-Q SCH ×4 (00:24→17:44)
[2020-08-01] MEDS: HEPARIN 5,000 UNIT/1 ML VIAL SUB-Q SCH ×3 (02:19→17:23)
[2020-08-01] MEDS: VANCOMYCIN 250 MG/10 ML ORAL LIQD PO SCH ×3 (05:24→17:29)
[2020-08-01 08:12] LABS: BUN/Creatinine Ratio 53; Blood Urea Nitrogen 16 mg/dL (7-17); Calcium 9.2 mg/dL (8.4-10.2); Hemolysis Index 14
[2020-08-01] MEDS: VALPROIC ACID 250 MG/5 ML ORAL LIQD FEEDTUBE SCH ×2 (09:26→21:43)
[2020-08-01] MEDS: MEGESTROL 400 MG/10 ML ORAL LIQD PO SCH (09:26)
--- NOTE | 2020-08-01 14:27 | Progress Note ---
Assessment and Plan - Patient Problems (1) C. difficile diarrhea Current Visit: Yes Status: Acute Plan to address problem: 07/19 C. difficile positive P.o. Vancomycin 105 mg every 6 hours (07/20 through 08/03) Contact isolation Supportive care (2) Schizoaffective disorder Current Visit: Yes Status: Chronic Plan to address problem: Patient admitted catatonic state and is nonverbal at this time following commands Psychiatric consult completed; does not recommend inpatient at this time Haldol as needed, Depakote, Zyprexa Supportive care (3) Transaminitis Current Visit: Yes Status: Resolved Plan to address problem: Probably secondary to rhabdo 07/11 AST 86, ALT 68, alkaline phosphorus 60 07/13 AST 83, ALT 54, alkaline phosphorus 44 (4) Metabolic encephalopathy Current Visit: Yes Status: Acute Plan to address problem: Multifactorial , schizoaffective disorder Patient came from [place], psych evaluation noted Psych now recommended for outpt f/u Continue NG tube feedings (5) Rhabdomyolysis Current Visit: Yes Status: Resolved Qualifiers: Rhabdomyolysis type: non-traumatic Qualified Code(s): M62.82 - Rhabdomyolysis Plan to address problem: Presented with CK 1998 on 07/11, improved to 828 on 07/14, 102 on 07/17 s/p IV fluid (6) Dehydration Current Visit: Yes Status: Resolved Plan to address problem: S/p IV fluids Trend BMP replete as needed TF with FWF via DHT (7) Hyponatremia Current Visit: Yes Status: Acute Plan to address problem: Admit sodium 142 07/31 134, slight hyponatremia at this time no intervention needed, 08/01 Na 136 Hydration with free water flush Trend BMP (8) Metabolic acidosis Current Visit: Yes Status: Resolved Plan to address problem: Admit CO2 27 07/15 trended down to 16 07/31 CO2 21 08/01 CO2 26 Trend BMP (9) DVT prophylaxis Current Visit: Yes Status: Acute Plan to address problem: SCDs to bilateral lower extremities while in bed Heparin subcu History Interval history: 60-year-old female patient with schizoaffective disorder with active hallucinations and confusion presented from [place] for altered mental status and poor intake on 07/13. She was found to have rhabdomyolysis and electrolyte imbalances. She then developed C. difficile diarrhea. Patient remains in catatonic state does not follow any commands and is nonverbal. She had a Dobbhoff tube in place with tube feeds infusing. No acute events reported overnight. Per assistant case manager note [facility] Department has been contacted to help in identifying the patient. On officer is to report to bedside and was instructed to call the assistant case manager upon arrival. 07/13; patient's CK levels trending down on 1678, continue IV hydration patient is more alert at times, hallucinating, Noncommunicative, severe hypokalemia, replace per protocol 07/14; potassium level significantly improved today to 3.2, replenish per protocol. CK levels trending down 828, continue IV hydration, monitor electrolytes 07/15; patient refused potassium yesterday today potassium levels again 2.7 We will add KCl to IV fluids, and IV K riders, monitor electrolytes. CK level 425. Refusing to eat confused noncommunicative. Possible inpatient psych admission when medically stable 07/16; rhabdomyolysis resolved, mild electrolyte imbalances, if corrected medically stable for inpatient psych placement 07/17: replete K and phosphate. repeat CBc BMP tomorrow. White count needs to be < 10 for inpt psych admission 07/18: cont to have mildly elevated white count, c/o loose stool. will check for C. def - start flagyl and cipro 07/19: White count normal today. change medications to Po. medically stable to go for inpt psych unit. 07/20; positive for C. def. patient not eating properly, refusing meds time to time. Psych now recommended outpt f/u. CM working on placement. Patient remains nonverbal, does not follow any commend and not giving any personal info. 07/21; K 2.0 today, cont to replete, follow BMP, patient remains nonverbal and not cooperative. refuses to eat and meds. cont d51/2NS. if condition doesnot improve will consider TF 07/22: Potassium level persistently remains low, magnesium 1.6 today. Will replete magnesium and potassium. Patient refusing meds and not eating at all per RN report. Totally noncooperative during the encounternot respond to any question. Keeps her eye closing and covering her face with her forearm. Will order for tube feeding and Dobbhoff tube. Continue to follow. We will also add Megace to boost appetite. 07/23: started on TF, follow BMP, change iv fluid to 1/2 NS. patient remains nonverbal 07/24; clinically unchanged, replete K, iv fluid and TF. reconsult psych as patient remains in catatonic phase 07/25: psych recommendation noted, continue tube feeding, continue to replete electrolytes as needed, follow BMP. I strongly believe her severe electrolytes derangement and encephalopathy related to her catatonia, poor oral intake other than any underlying medical conditions. There is no family contact in file, no home address available, patient appeared to be unfunded. event operations manager working on placement. 07/26: psych recommendation noted, continue tube feeding, continue to replete electrolytes as needed, follow BMP. I strongly believe her severe electrolytes derangement and encephalopathy related to her catatonia, poor oral intake other than any underlying medical conditions. There is no family contact in file, no home address available, patient appeared to be unfunded. event operations manager working on placement. 07/27; continue with tube feeding. There is no family contact in file, no home address available, patient appeared to be unfunded. Case management is following. 07/28; patient still on tube feeding, patient is noncommunicative. I believe her condition is related to her catatonia. Psych is following her. Currently her electrolytes are corrected. There is no family contact in file, no home address available, patient appeared to be unfunded. Case management is following. 07/29 patient is nonverbal, eyes open does not follow simple commands,, still having low-grade fever T-max 100 degrees,, lab results reviewed discussed with RN- still has loose stools, assistant case manager notes reviewed, unable to contact family 07/30 no acute events overnight, diarrhea improved, stop IV fluids, disposition to be decided 07/31: surveillance sensor officer presented to the bedside to attempt to fingerprint the patient to identify her. However his machine was not working Hospitalist Physical - Physical exam Narrative exam: General appearance: Present: no acute distress, other (Nonverbal, awake) - EENT Eyes: Present: PERRL - Neck Neck: Present: supple, normal ROM - Respiratory Respiratory effort: normal Respiratory: bilateral: CTA - Cardiovascular Rhythm: regular Heart Sounds: Present: S1 & S2. Absent: systolic murmur, diastolic murmur - Extremities Extremities: no ischemia, pulses intact, pulses symmetrical, No edema, normal temperature, normal color, Full ROM Peripheral Pulses: within normal limits - Abdominal General gastrointestinal: soft, non-tender, non-distended, normal bowel sounds - Integumentary Integumentary: Present: clear, warm, dry - Psychiatric Psychiatric: other (Patient is nonverbal, does not follow any commands however does withdraw to pain to all 4 extremities) - Neurologic Neurologic: moves all extremities (spontaneously) - Constitutional Vitals: Temp Pulse Resp BP Pulse Ox 99.3 F 98 H 18 101/66 95 08/01/20 11:52 08/01/20 11:52 08/01/20 11:52 08/01/20 11:52 08/01/20 11:52 - Respiratory Respiratory: bilateral: CTA HEART Score - HEART Score Risk factors: 1-2 risk factors Troponin: Troponin T < 0.010 ng/mL (0.00-0.029) 07/11/20 21:17 Troponin: < normal limit - Critical Actions Critical Actions: 0-3 pts:0.9-1.7%risk of adverse cardiac event.Candidate for discharge Results - Labs CBC & Chem 7: 07/26/20 07:30 08/01/20 06:45 Labs: Laboratory Last Values WBC 9.5 K/mm3 (4.5-11.0) 07/26/20 07:30 RBC 4.17 M/mm3 (3.65-5.03) 07/26/20 07:30 Hgb 13.9 gm/dl (10.1-14.3) 07/26/20 07:30 Hct 40.4 % (30.3-42.9) 07/26/20 07:30 MCV 97 fl (79-97) 07/26/20 07:30 MCH 33 pg (28-32) H 07/26/20 07:30 MCHC 34 % (30-34) 07/26/20 07:30 RDW 14.4 % (13.2-15.2) 07/26/20 07:30 Plt Count 464 K/mm3 (140-440) H 07/26/20 07:30 Lymph % (Auto) 21.6 % (13.4-35.0) 07/26/20 07:30 [place] % (Auto) 6.2 % (0.0-7.3) 07/26/20 07:30 Eos % (Auto) 0.5 % (0.0-4.3) 07/26/20 07:30 Baso % (Auto) 0.3 % (0.0-1.8) 07/26/20 07:30 Lymph # (Auto) 2.0 K/mm3 (1.2-5.4) 07/26/20 07:30 [place] # (Auto) 0.6 K/mm3 (0.0-0.8) 07/26/20 07:30 Eos # (Auto) 0.1 K/mm3 (0.0-0.4) 07/26/20 07:30 Baso # (Auto) 0.0 K/mm3 (0.0-0.1) 07/26/20 07:30 Seg Neutrophils % 71.4 % (40.0-70.0) H 07/26/20 07:30 Seg Neutrophils # 6.8 K/mm3 (1.8-7.7) 07/26/20 07:30 Sodium 136 mmol/L (137-145) L 08/01/20 06:45 Potassium 4.3 mmol/L (3.6-5.0) 08/01/20 06:45 Chloride 97.9 mmol/L (98-107) L 08/01/20 06:45 Carbon Dioxide 26 mmol/L (22-30) 08/01/20 06:45 Anion Gap 16 mmol/L 08/01/20 06:45 BUN 16 mg/dL (7-17) 08/01/20 06:45 Creatinine 0.3 mg/dL (0.6-1.2) L 08/01/20 06:45 Estimated GFR > 60 ml/min 08/01/20 06:45 BUN/Creatinine Ratio 53 % 08/01/20 06:45 Glucose 122 mg/dL (65-100) H 08/01/20 06:45 POC Glucose 93 (70-105) 08/01/20 12:06 Lactic Acid 1.50 mmol/L (0.7-2.0) 07/12/20 00:04 Phosphorus 3.10 mg/dL (2.5-4.5) 07/24/20 06:00 Magnesium 2.10 mg/dL (1.7-2.3) 07/24/20 06:00 Calcium 9.2 mg/dL (8.4-10.2) 08/01/20 06:45 Total Bilirubin 0.70 mg/dL (0.1-1.2) 07/13/20 09:33 Direct Bilirubin < 0.2 mg/dL (0-0.2) 07/13/20 09:33 AST 83 units/L (5-40) H 07/13/20 09:33 ALT 54 units/L (7-56) 07/13/20 09:33 Alkaline Phosphatase 46 units/L (35-129) 07/13/20 09:33 Ammonia 28.0 umol/L (25-60) 07/11/20 21:17 Total Creatine Kinase 102 units/L (30-135) 07/17/20 05:21 CK-MB (CK-2) 9.2 ng/mL (0.0-4.0) H 07/12/20 15:13 CK-MB (CK-2) Rel Index 0.4 (0-4) 07/12/20 15:13 Troponin T < 0.010 ng/mL (0.00-0.029) 07/11/20 21:17 Total Protein 5.3 g/dL (6.3-8.2) L D 07/13/20 09:33 Albumin 3.0 g/dL (3.9-5) L 07/13/20 09:33 Albumin/Globulin Ratio 1.3 % 07/13/20 09:33 Urine Color Yellow (Yellow) 07/11/20 Unknown Urine Turbidity Clear (Clear) 07/11/20 Unknown Urine pH 6.0 (5.0-7.0) 07/11/20 Unknown Ur Specific [place] 1.023 (1.003-1.030) 07/11/20 Unknown Urine Protein 30 mg/dl mg/dL (Negative) 07/11/20 Unknown Urine Glucose (UA) Neg mg/dL (Negative) 07/11/20 Unknown Urine Ketones Tr mg/dL (Negative) 07/11/20 Unknown Urine Blood Neg (Negative) 07/11/20 Unknown Urine Nitrite Neg (Negative) 07/11/20 Unknown Urine Bilirubin Neg (Negative) 07/11/20 Unknown Urine Urobilinogen 2.0 mg/dL (<2.0) 07/11/20 Unknown Ur Leukocyte Esterase Neg (Negative) 07/11/20 Unknown Urine WBC (Auto) 2.0 /HPF (0.0-6.0) 07/11/20 Unknown Urine RBC (Auto) 3.0 /HPF (0.0-6.0) 07/11/20 Unknown U Epithel Cells (Auto) 3.0 /HPF (0-13.0) 07/11/20 Unknown Urine Mucus 3+ /HPF 07/11/20 Unknown Salicylates < 0.3 mg/dL (2.8-20.0) L 07/11/20 21:17 Urine Opiates Screen Presumptive negative 07/11/20 Unknown Urine Methadone Screen Presumptive negative 07/11/20 Unknown Acetaminophen 5.0 ug/mL (10.0-30.0) L 07/11/20 21:17 Ur Barbiturates Screen Presumptive negative 07/11/20 Unknown Valproic Acid 7.7 ug/mL (50-100) L 07/19/20 08:12 Ur Phencyclidine Scrn Presumptive negative 07/11/20 Unknown Ur Amphetamines Screen Presumptive negative 07/11/20 Unknown U Benzodiazepines Scrn Presumptive negative 07/11/20 Unknown Urine Cocaine Screen Presumptive negative 07/11/20 Unknown U Marijuana (THC) Screen Presumptive negative 07/11/20 Unknown Drugs of Abuse Note Disclamer 07/11/20 Unknown C. difficile Tox (PCR) Positive (Negative) 07/19/20 18:51 Ledesma/IV: Voiding Method Incontinent IV Catheter Type [Left Forearm INT / Saline Lock ] IV Catheter Type [Right Hand] Peripheral IV IV Catheter Type [Right Peripheral IV Forearm] IV Catheter Type [Left Hand] INT / Saline Lock Active Medications - Current Medications Current Medications: Generic Name Dose Route Start Last Admin Trade Name Suleimanq PRN Reason Stop Dose Admin Acetaminophen 650 mg 07/12/20 01:05 07/27/20 01:57 Tylenol UT 650 mg Q4H PRN Administration Fever >101 Lipase/Protease/Amylase 1 each 07/22/20 07:44 Pancredeepake 10,500 Unit FEEDTUBE PRN PRN For Clogged Feeding Tube Haloperidol Lactate 5 mg 07/18/20 13:15 07/21/20 22:06 Haldol IM 5 mg Q6H PRN Administration Agitation Heparin Sodium (Porcine) 5,000 unit 07/12/20 10:00 08/01/20 09:27 Heparin SUB-Q 5,000 unit Q8H KEITH Administration Insulin Human Regular 0 unit 07/23/20 09:00 08/01/20 12:33 Humulin R SUB-Q Not Given Q6HR [facility] Protocol Lorazepam 0.5 mg 07/18/20 13:17 Ativan PO Q4H PRN Anxiety Megestrol Acetate 400 mg 07/22/20 10:00 08/01/20 09:26 Megestrol PO 400 mg QDAY KEITH Administration Olanzapine 2.5 mg 07/25/20 22:00 07/31/20 23:14 Zyprexa PO 2.5 mg QHS KEITH Administration Ondansetron HCl 4 mg 07/12/20 01:06 Zofran IV Q8H PRN Nausea And Vomiting Simple Syrup 15 ml 07/22/20 07:44 Simple Syrup FEEDTUBE PRN PRN Hypoglycemia Simple Syrup 30 ml 07/22/20 07:44 Simple Syrup FEEDTUBE PRN PRN Hypoglycemia Sodium Bicarbonate 325 mg 07/22/20 07:44 Sodium Bicarbonate FEEDTUBE PRN PRN For Clogged Feeding Tube Valproic Acid 250 mg 07/25/20 22:00 08/01/20 09:26 Depakene Liq FEEDTUBE 250 mg BID KEITH Administration Vancomycin HCl 125 mg 07/20/20 09:30 08/01/20 12:33 Vancomycin Po PO 08/03/20 06:01 125 mg Q6HR KEITH Administration Nutrition/Malnutrition Assess - Dietary Evaluation Nutrition/Malnutrition Findings: Nutrition Notes Start: 07/12/20 11:40 Freq: Status: Active Protocol: Document 07/27/20 13:45 SHIRLEY (Rec: 07/27/20 13:49 SHIRLEY [id number]) Co-Sign 07/27/20 13:45 LP Nutrition Notes Initial or Follow up Reassessment Other Pertinent Diagnosis AMS, Rhabdomyolysis, dehydration, Hx of stroke Current Diet Osmolite 1.5 at 35ml/hr Labs/Tests Na 136 Pertinent Medications NS 75ml/hr Height 5 ft Weight 53 kg [place] Body Weight (kg) 45.45 BMI 22.8 Weight Status Appropriate Subjective/Other Information Per RN pt is tolerating TF at goal rate. Percent of energy/protein needs met: 100%/90% Burn Absent Trauma Absent GI Symptoms None Current % PO Negligible Minimum of two criteria No Energy Intake (severe) < or equal to 50% Estimated Energy Requirement > or equal to 5 days #1 Nutrition Diagnosis Inadequate oral intake Diagnosis Progress(for reassessment Continues documentation) Is patient on ventilator? No Is Patient Ambulatory and/or Out of Bed No REE-([facility]-confined to bed) 1225.020 Calculation Used for Recommendations [facility] Additional Notes Protein Needs 59-70g (1-1.2g/ kg) Fluid Needs: 1ml/kcal Nutrition Intervention Change Diet Order: TF Nutrition Support: Osmolite 1.5 at 35ml/hr. Flush with 175ml q4h for hypernatremia. Flush 100ml q4hr with Na WNL Kcal 1,260 Protein (gm) 53 Fluid (mL) 640 Goal #1 Meet at least 80% of kcal and protein needs Anticipated Discharge Needs: unable to determine at this time Follow-Up By: 08/03/20 Additional Comments F/u stable TF and Na
--- NOTE | 2020-08-01 17:15 | XRay Report ---
ABDOMEN 1 VIEW(S) 08/01/2020 4:08 PM INDICATION / CLINICAL INFORMATION: verify dobhoff placement for feeding. COMPARISON: 07/31/2020 FINDINGS: The tip of a weighted feeding tube has been pulled back projects over the gastric fundus. Signer Name: Daryl Melvin MD Signed: 08/01/2020 5:11 PM Workstation Name: [id number]
[2020-08-02] MEDS: INSULIN REGULAR, HUMAN 100 UNIT/ML 3ML VIAL SUB-Q SCH ×4 (00:33→18:41)
[2020-08-02] MEDS: VANCOMYCIN 250 MG/10 ML ORAL LIQD PO SCH ×4 (00:40→18:38)
[2020-08-02] MEDS: HEPARIN 5,000 UNIT/1 ML VIAL SUB-Q SCH ×3 (02:36→18:33)
[2020-08-02] MEDS: VALPROIC ACID 250 MG/5 ML ORAL LIQD FEEDTUBE SCH ×2 (11:58→21:56)
[2020-08-02] MEDS: MEGESTROL 400 MG/10 ML ORAL LIQD PO SCH (11:58)
--- NOTE | 2020-08-02 15:52 | Progress Note ---
Assessment and Plan - Patient Problems (1) C. difficile diarrhea Current Visit: Yes Status: Acute Plan to address problem: 07/19 C. difficile positive P.o. Vancomycin 105 mg every 6 hours (07/20 through 08/03) Contact isolation Supportive care (2) Schizoaffective disorder Current Visit: Yes Status: Chronic Plan to address problem: Patient admitted catatonic state and is nonverbal at this time following commands Psychiatric consult completed; does not recommend inpatient at this time Haldol as needed, Depakote, Zyprexa Supportive care (3) Transaminitis Current Visit: Yes Status: Resolved (4) Metabolic encephalopathy Current Visit: Yes Status: Acute Plan to address problem: Multifactorial , schizoaffective disorder Patient came from [place], psych evaluation noted Psych now recommended for outpt f/u Continue NG tube feedings (5) Rhabdomyolysis Current Visit: Yes Status: Resolved Qualifiers: Rhabdomyolysis type: non-traumatic Qualified Code(s): M62.82 - Rhabdomyolysis (6) Dehydration Current Visit: Yes Status: Resolved (7) Hyponatremia Current Visit: Yes Status: Acute Plan to address problem: Admit sodium 142 07/31 134, slight hyponatremia at this time no intervention needed, 08/01 Na 136 Hydration with free water flush Trend BMP (8) Metabolic acidosis Current Visit: Yes Status: Resolved (9) Hypochloremia Current Visit: Yes Status: Acute Plan to address problem: 07/31 chloride 97, 08/02 chloride 97.9 Patient on tube feedings with [facility] We will continue to monitor as this is a slight decrease (10) DVT prophylaxis Current Visit: Yes Status: Acute Plan to address problem: SCDs to bilateral lower extremities while in bed Heparin subcu (11) Discharge planning issues Current Visit: Yes Status: Acute Plan to address problem: Patient's identity is not confirmed [facility] Department has been contacted to aid in identification however unsuccessful [facility] Department have been contacted Inpatient records requested from [facility] again on 08/02 Risk-management made aware of patient again on 08/02 History Interval history: 60-year-old female patient with schizoaffective disorder with active hallucinations and confusion presented from [place] for altered mental status and poor intake on 07/13. She was found to have rhabdomyolysis and electrolyte imbalances. She then developed C. difficile diarrhea. Patient remains in catatonic state does not follow any commands and is nonverbal. She had a Dobbhoff tube in place with tube feeds infusing. No acute events reported overnight. [facility] Police Department has been contacted and advised to help identify this patient. Records have been requested again from [facility]. Risk regimen has been made aware of this patient again. 07/13; patient's CK levels trending down on 1678, continue IV hydration patient is more alert at times, hallucinating, Noncommunicative, severe hypokalemia, replace per protocol 07/14; potassium level significantly improved today to 3.2, replenish per protocol. CK levels trending down 828, continue IV hydration, monitor electrolytes 07/15; patient refused potassium yesterday today potassium levels again 2.7 We will add KCl to IV fluids, and IV K riders, monitor electrolytes. CK level 425. Refusing to eat confused noncommunicative. Possible inpatient psych admission when medically stable 07/16; rhabdomyolysis resolved, mild electrolyte imbalances, if corrected medically stable for inpatient psych placement 07/17: replete K and phosphate. repeat CBc BMP tomorrow. White count needs to be < 10 for inpt psych admission 07/18: cont to have mildly elevated white count, c/o loose stool. will check for C. def - start flagyl and cipro 07/19: White count normal today. change medications to Po. medically stable to go for inpt psych unit. 07/20; positive for C. def. patient not eating properly, refusing meds time to time. Psych now recommended outpt f/u. CM working on placement. Patient remains nonverbal, does not follow any commend and not giving any personal info. 07/21; K 2.0 today, cont to replete, follow BMP, patient remains nonverbal and not cooperative. refuses to eat and meds. cont d51/2NS. if condition doesnot improve will consider TF 07/22: Potassium level persistently remains low, magnesium 1.6 today. Will replete magnesium and potassium. Patient refusing meds and not eating at all per RN report. Totally noncooperative during the encounternot respond to any question. Keeps her eye closing and covering her face with her forearm. Will order for tube feeding and Dobbhoff tube. Continue to follow. We will also add Megace to boost appetite. 07/23: started on TF, follow BMP, change iv fluid to 1/2 NS. patient remains nonverbal 07/24; clinically unchanged, replete K, iv fluid and TF. reconsult psych as patient remains in catatonic phase 07/25: psych recommendation noted, continue tube feeding, continue to replete electrolytes as needed, follow BMP. I strongly believe her severe electrolytes derangement and encephalopathy related to her catatonia, poor oral intake other than any underlying medical conditions. There is no family contact in file, no home address available, patient appeared to be unfunded. cnc manager working on placement. 07/26: psych recommendation noted, continue tube feeding, continue to replete electrolytes as needed, follow BMP. I strongly believe her severe electrolytes derangement and encephalopathy related to her catatonia, poor oral intake other than any underlying medical conditions. There is no family contact in file, no home address available, patient appeared to be unfunded. cnc manager working on placement. 07/27; continue with tube feeding. There is no family contact in file, no home address available, patient appeared to be unfunded. Case management is following. 07/28; patient still on tube feeding, patient is noncommunicative. I believe her condition is related to her catatonia. Psych is following her. Currently her electrolytes are corrected. There is no family contact in file, no home address available, patient appeared to be unfunded. Case management is following. 07/29 patient is nonverbal, eyes open does not follow simple commands,, still having low-grade fever T-max 100 degrees,, lab results reviewed discussed with RN- still has loose stools, lead case manager notes reviewed, unable to contact family 07/30 no acute events overnight, diarrhea improved, stop IV fluids, disposition to be decided 07/31: tank officer presented to the bedside to attempt to fingerprint the patient to identify her. However his machine was not working 08/01:' Per lead case manager note [facility] Police Department has been contacted to help in identifying the patient. On officer is to report to bedside and was instructed to call the lead case manager upon arrival. Hospitalist Physical - Constitutional Vitals: Temp Pulse Resp BP Pulse Ox 98.8 F 94 H 20 120/59 100 08/02/20 12:35 08/02/20 12:35 08/02/20 12:35 08/02/20 12:35 08/02/20 12:35 General appearance: Present: no acute distress, other (Nonverbal, awake) - EENT Eyes: Present: PERRL, EOM intact ENT: hearing intact, poor dentition - Neck Neck: Present: supple, normal ROM - Respiratory Respiratory effort: normal Respiratory: bilateral: CTA - Cardiovascular Rhythm: regular Heart Sounds: Present: S1 & S2. Absent: systolic murmur, diastolic murmur - Extremities Extremities: no ischemia, pulses intact, pulses symmetrical, No edema, normal temperature, normal color, Full ROM Peripheral Pulses: within normal limits - Abdominal General gastrointestinal: soft, non-tender, non-distended, normal bowel sounds - Integumentary Integumentary: Present: clear, warm, dry - Psychiatric Psychiatric: other (Patient will open eyes to verbal stimuli and withdraw to pain in all 4 extremities. Does not follow any commands however moves all extremities spontaneously.) - Neurologic Neurologic: CNII-XII intact, no focal deficits, moves all extremities HEART Score - HEART Score Risk factors: 1-2 risk factors Troponin: Troponin T < 0.010 ng/mL (0.00-0.029) 07/11/20 21:17 Troponin: < normal limit - Critical Actions Critical Actions: 0-3 pts:0.9-1.7%risk of adverse cardiac event.Candidate for discharge Results - Labs CBC & Chem 7: 07/26/20 07:30 08/01/20 06:45 Labs: Laboratory Last Values WBC 9.5 K/mm3 (4.5-11.0) 07/26/20 07:30 RBC 4.17 M/mm3 (3.65-5.03) 07/26/20 07:30 Hgb 13.9 gm/dl (10.1-14.3) 07/26/20 07:30 Hct 40.4 % (30.3-42.9) 07/26/20 07:30 MCV 97 fl (79-97) 07/26/20 07:30 MCH 33 pg (28-32) H 07/26/20 07:30 MCHC 34 % (30-34) 07/26/20 07:30 RDW 14.4 % (13.2-15.2) 07/26/20 07:30 Plt Count 464 K/mm3 (140-440) H 07/26/20 07:30 Lymph % (Auto) 21.6 % (13.4-35.0) 07/26/20 07:30 Lewis % (Auto) 6.2 % (0.0-7.3) 07/26/20 07:30 Eos % (Auto) 0.5 % (0.0-4.3) 07/26/20 07:30 Baso % (Auto) 0.3 % (0.0-1.8) 07/26/20 07:30 Lymph # (Auto) 2.0 K/mm3 (1.2-5.4) 07/26/20 07:30 Lewis # (Auto) 0.6 K/mm3 (0.0-0.8) 07/26/20 07:30 Eos # (Auto) 0.1 K/mm3 (0.0-0.4) 07/26/20 07:30 Baso # (Auto) 0.0 K/mm3 (0.0-0.1) 07/26/20 07:30 Seg Neutrophils % 71.4 % (40.0-70.0) H 07/26/20 07:30 Seg Neutrophils # 6.8 K/mm3 (1.8-7.7) 07/26/20 07:30 Sodium 136 mmol/L (137-145) L 08/01/20 06:45 Potassium 4.3 mmol/L (3.6-5.0) 08/01/20 06:45 Chloride 97.9 mmol/L (98-107) L 08/01/20 06:45 Carbon Dioxide 26 mmol/L (22-30) 08/01/20 06:45 Anion Gap 16 mmol/L 08/01/20 06:45 BUN 16 mg/dL (7-17) 08/01/20 06:45 Creatinine 0.3 mg/dL (0.6-1.2) L 08/01/20 06:45 Estimated GFR > 60 ml/min 08/01/20 06:45 BUN/Creatinine Ratio 53 % 08/01/20 06:45 Glucose 122 mg/dL (65-100) H 08/01/20 06:45 POC Glucose 135 (70-105) H 08/02/20 12:51 Lactic Acid 1.50 mmol/L (0.7-2.0) 07/12/20 00:04 Phosphorus 3.10 mg/dL (2.5-4.5) 07/24/20 06:00 Magnesium 2.10 mg/dL (1.7-2.3) 07/24/20 06:00 Calcium 9.2 mg/dL (8.4-10.2) 08/01/20 06:45 Total Bilirubin 0.70 mg/dL (0.1-1.2) 07/13/20 09:33 Direct Bilirubin < 0.2 mg/dL (0-0.2) 07/13/20 09:33 AST 83 units/L (5-40) H 07/13/20 09:33 ALT 54 units/L (7-56) 07/13/20 09:33 Alkaline Phosphatase 46 units/L (35-129) 07/13/20 09:33 Ammonia 28.0 umol/L (25-60) 07/11/20 21:17 Total Creatine Kinase 102 units/L (30-135) 07/17/20 05:21 CK-MB (CK-2) 9.2 ng/mL (0.0-4.0) H 07/12/20 15:13 CK-MB (CK-2) Rel Index 0.4 (0-4) 07/12/20 15:13 Troponin T < 0.010 ng/mL (0.00-0.029) 07/11/20 21:17 Total Protein 5.3 g/dL (6.3-8.2) L D 07/13/20 09:33 Albumin 3.0 g/dL (3.9-5) L 07/13/20 09:33 Albumin/Globulin Ratio 1.3 % 07/13/20 09:33 Urine Color Yellow (Yellow) 07/11/20 Unknown Urine Turbidity Clear (Clear) 07/11/20 Unknown Urine pH 6.0 (5.0-7.0) 07/11/20 Unknown Ur Specific [place] 1.023 (1.003-1.030) 07/11/20 Unknown Urine Protein 30 mg/dl mg/dL (Negative) 07/11/20 Unknown Urine Glucose (UA) Neg mg/dL (Negative) 07/11/20 Unknown Urine Ketones Tr mg/dL (Negative) 07/11/20 Unknown Urine Blood Neg (Negative) 07/11/20 Unknown Urine Nitrite Neg (Negative) 07/11/20 Unknown Urine Bilirubin Neg (Negative) 07/11/20 Unknown Urine Urobilinogen 2.0 mg/dL (<2.0) 07/11/20 Unknown Ur Leukocyte Esterase Neg (Negative) 07/11/20 Unknown Urine WBC (Auto) 2.0 /HPF (0.0-6.0) 07/11/20 Unknown Urine RBC (Auto) 3.0 /HPF (0.0-6.0) 07/11/20 Unknown U Epithel Cells (Auto) 3.0 /HPF (0-13.0) 07/11/20 Unknown Urine Mucus 3+ /HPF 07/11/20 Unknown Salicylates < 0.3 mg/dL (2.8-20.0) L 07/11/20 21:17 Urine Opiates Screen Presumptive negative 07/11/20 Unknown Urine Methadone Screen Presumptive negative 07/11/20 Unknown Acetaminophen 5.0 ug/mL (10.0-30.0) L 07/11/20 21:17 Ur Barbiturates Screen Presumptive negative 07/11/20 Unknown Valproic Acid 7.7 ug/mL (50-100) L 07/19/20 08:12 Ur Phencyclidine Scrn Presumptive negative 07/11/20 Unknown Ur Amphetamines Screen Presumptive negative 07/11/20 Unknown U Benzodiazepines Scrn Presumptive negative 07/11/20 Unknown Urine Cocaine Screen Presumptive negative 07/11/20 Unknown U Marijuana (THC) Screen Presumptive negative 07/11/20 Unknown Drugs of Abuse Note Disclamer 07/11/20 Unknown C. difficile Tox (PCR) Positive (Negative) 07/19/20 18:51 Ledesma/IV: Voiding Method Incontinent IV Catheter Type [Left Forearm INT / Saline Lock ] IV Catheter Type [Right Hand] Peripheral IV IV Catheter Type [Right Peripheral IV Forearm] IV Catheter Type [Left Hand] INT / Saline Lock Active Medications - Current Medications Current Medications: Generic Name Dose Route Start Last Admin Trade Name Freq PRN Reason Stop Dose Admin Acetaminophen 650 mg 07/12/20 01:05 07/27/20 01:57 Tylenol AK 650 mg Q4H PRN Administration Fever >101 Lipase/Protease/Amylase 1 each 07/22/20 07:[address] 10,500 Unit FEEDTUBE PRN PRN For Clogged Feeding Tube Haloperidol Lactate 5 mg 07/18/20 13:15 07/21/20 22:06 Haldol IM 5 mg Q6H PRN Administration Agitation Heparin Sodium (Porcine) 5,000 unit 07/12/20 10:00 08/02/20 12:33 Heparin SUB-Q 5,000 unit Q8H KEITH Administration Insulin Human Regular 0 unit 07/23/20 09:00 08/02/20 13:45 Humulin R SUB-Q Not Given Q6HR [facility] Protocol Lorazepam 0.5 mg 07/18/20 13:17 Ativan PO Q4H PRN Anxiety Megestrol Acetate 400 mg 07/22/20 10:00 08/02/20 11:58 Megestrol PO 400 mg QDAY KEITH Administration Olanzapine 2.5 mg 07/25/20 22:00 08/01/20 21:43 Zyprexa PO 2.5 mg QHS KEITH Administration Ondansetron HCl 4 mg 07/12/20 01:06 Zofran IV Q8H PRN Nausea And Vomiting Simple Syrup 15 ml 07/22/20 07:44 Simple Syrup FEEDTUBE PRN PRN Hypoglycemia Simple Syrup 30 ml 07/22/20 07:44 Simple Syrup FEEDTUBE PRN PRN Hypoglycemia Sodium Bicarbonate 325 mg 07/22/20 07:44 Sodium Bicarbonate FEEDTUBE PRN PRN For Clogged Feeding Tube Valproic Acid 250 mg 07/25/20 22:00 08/02/20 11:58 Depakene Liq FEEDTUBE 250 mg BID KEITH Administration Vancomycin HCl 125 mg 07/20/20 09:30 08/02/20 11:58 Vancomycin Po PO 08/03/20 06:01 125 mg Q6HR KEITH Administration Nutrition/Malnutrition Assess - Dietary Evaluation Nutrition/Malnutrition Findings: Nutrition Notes Start: 07/12/20 11:40 Freq: Status: Active Protocol: Document 07/27/20 13:45 SHIRLEY (Rec: 07/27/20 13:49 SHIRLEY [id number]) Co-Sign 07/27/20 13:45 LP Nutrition Notes Initial or Follow up Reassessment Other Pertinent Diagnosis AMS, Rhabdomyolysis, dehydration, Hx of stroke Current Diet Osmolite 1.5 at 35ml/hr Labs/Tests Na 136 Pertinent Medications NS 75ml/hr Height 5 ft Weight 53 kg [place] Body Weight (kg) 45.45 BMI 22.8 Weight Status Appropriate Subjective/Other Information Per RN pt is tolerating TF at goal rate. Percent of energy/protein needs met: 100%/90% Burn Absent Trauma Absent GI Symptoms None Current % PO Negligible Minimum of two criteria No Energy Intake (severe) < or equal to 50% Estimated Energy Requirement > or equal to 5 days #1 Nutrition Diagnosis Inadequate oral intake Diagnosis Progress(for reassessment Continues documentation) Is patient on ventilator? No Is Patient Ambulatory and/or Out of Bed No REE-([facility]-confined to bed) 1225.020 Calculation Used for Recommendations [facility] Additional Notes Protein Needs 59-70g (1-1.2g/ kg) Fluid Needs: 1ml/kcal Nutrition Intervention Change Diet Order: TF Nutrition Support: Osmolite 1.5 at 35ml/hr. Flush with 175ml q4h for hypernatremia. Flush 100ml q4hr with Na WNL Kcal 1,260 Protein (gm) 53 Fluid (mL) 640 Goal #1 Meet at least 80% of kcal and protein needs Anticipated Discharge Needs: unable to determine at this time Follow-Up By: 08/03/20 Additional Comments F/u stable TF and Na
[2020-08-03] MEDS: VANCOMYCIN 250 MG/10 ML ORAL LIQD PO SCH ×2 (00:09→06:33)
[2020-08-03] MEDS: INSULIN REGULAR, HUMAN 100 UNIT/ML 3ML VIAL SUB-Q SCH ×4 (00:09→17:58)
[2020-08-03] MEDS: HEPARIN 5,000 UNIT/1 ML VIAL SUB-Q SCH ×3 (02:08→17:40)
[2020-08-03 06:38] LABS: Blood Urea Nitrogen 14 mg/dL (7-17); Calcium 9.8 mg/dL (8.4-10.2); Hemolysis Index 10
[2020-08-03 06:41] LABS: BUN/Creatinine Ratio 35
[2020-08-03] MEDS: VALPROIC ACID 250 MG/5 ML ORAL LIQD FEEDTUBE SCH ×2 (09:38→23:56)
[2020-08-03] MEDS: MEGESTROL 400 MG/10 ML ORAL LIQD PO SCH (09:38)
[2020-08-04] MEDS: HEPARIN 5,000 UNIT/1 ML VIAL SUB-Q SCH ×3 (01:43→18:49)
[2020-08-04] MEDS: INSULIN REGULAR, HUMAN 100 UNIT/ML 3ML VIAL SUB-Q SCH ×4 (06:28→18:47)
[2020-08-04] MEDS: MEGESTROL 400 MG/10 ML ORAL LIQD PO SCH (10:44)
[2020-08-04] MEDS: VALPROIC ACID 250 MG/5 ML ORAL LIQD FEEDTUBE SCH ×2 (10:44→21:21)
[2020-08-05] MEDS: INSULIN REGULAR, HUMAN 100 UNIT/ML 3ML VIAL SUB-Q SCH ×4 (01:15→19:20)
[2020-08-05] MEDS: HEPARIN 5,000 UNIT/1 ML VIAL SUB-Q SCH ×3 (01:27→19:29)
[2020-08-05] MEDS: VALPROIC ACID 250 MG/5 ML ORAL LIQD FEEDTUBE SCH ×2 (10:06→21:13)
[2020-08-05] MEDS: MEGESTROL 400 MG/10 ML ORAL LIQD PO SCH (10:07)
--- NOTE | 2020-08-05 12:30 | Progress Note ---
Assessment and Plan Assessment and Plan - Patient Problems (1) C. difficile diarrhea Current Visit: Yes Status: Acute Plan to address problem: 07/19 C. difficile positive P.o. Vancomycin 100 mg every 6 hours (07/20 through 08/03) Contact isolation Supportive care - (2) Schizoaffective disorder Current Visit: Yes Status: Chronic Plan to address problem: Patient admitted catatonic state and is nonverbal at this time following commands Psychiatric consult completed; does not recommend inpatient at this time Haldol as needed, Depakote, Zyprexa Supportive care (3) Transaminitis Current Visit: Yes Status: Resolved (4) Metabolic encephalopathy Current Visit: Yes Status: Acute Plan to address problem: Multifactorial , schizoaffective disorder Patient came from [place], psych evaluation noted Psych now recommended for outpt f/u Continue NG tube feedings (5) Rhabdomyolysis Current Visit: Yes Status: Resolved Qualifiers: Rhabdomyolysis type: non-traumatic Qualified Code(s): M62.82 - Rhabdomyolysis (6) Dehydration Current Visit: Yes Status: Resolved (7) Hyponatremia Current Visit: Yes Status: Acute Plan to address problem: Admit sodium 142 07/31 134, slight hyponatremia at this time no intervention needed, 08/01 Na 136 Hydration with free water flush Trend BMP (8) Metabolic acidosis Current Visit: Yes Status: Resolved (9) Hypochloremia Current Visit: Yes Status: Acute Plan to address problem: 07/31 chloride 97, 08/02 chloride 97.9 Patient on tube feedings with [facility] We will continue to monitor as this is a slight decrease (10) DVT prophylaxis Current Visit: Yes Status: Acute Plan to address problem: SCDs to bilateral lower extremities while in bed Heparin subcu (11) Discharge planning issues Current Visit: Yes Status: Acute Plan to address problem: Patient's identity is not confirmed [facility] Department has been contacted to aid in identification however [facility] Department have been contacted Inpatient records requested from [facility] again on 08/02 Risk-management made aware of patient again on 08/02 Subjective Date of service: 08/03/20 Principal diagnosis: C diff Interval history: History Interval history: 60-year-old female patient with schizoaffective disorder with active hallucinations and confusion presented from [place] for altered mental status and poor intake on 07/13. She was found to have rhabdomyolysis and electrolyte imbalances. She then developed C. difficile diarrhea. Patient remains in catatonic state does not follow any commands and is nonverbal. She had a Dobbhoff tube in place with tube feeds infusing. No acute events reported overnight. [facility] Police Department has been contacted and advised to help identify this patient. Records have been requested again from [facility]. Risk regimen has been made aware of this patient again. 07/13; patient's CK levels trending down on 1678, continue IV hydration patient is more alert at times, hallucinating, Noncommunicative, severe hypokalemia, replace per protocol 07/14; potassium level significantly improved today to 3.2, replenish per protocol. CK levels trending down 828, continue IV hydration, monitor electrolytes 07/15; patient refused potassium yesterday today potassium levels again 2.7 We will add KCl to IV fluids, and IV K riders, monitor electrolytes. CK level 425. Refusing to eat confused noncommunicative. Possible inpatient psych admission when medically stable 07/16; rhabdomyolysis resolved, mild electrolyte imbalances, if corrected medically stable for inpatient psych placement 07/17: replete K and phosphate. repeat CBc BMP tomorrow. White count needs to be < 10 for inpt psych admission 07/18: cont to have mildly elevated white count, c/o loose stool. will check for C. def - start flagyl and cipro 07/19: White count normal today. change medications to Po. medically stable to go for inpt psych unit. 07/20; positive for C. def. patient not eating properly, refusing meds time to time. Psych now recommended outpt f/u. CM working on placement. Patient remains nonverbal, does not follow any commend and not giving any personal info. 07/21; K 2.0 today, cont to replete, follow BMP, patient remains nonverbal and not cooperative. refuses to eat and meds. cont d51/2NS. if condition doesnot improve will consider TF 07/22: Potassium level persistently remains low, magnesium 1.6 today. Will replete magnesium and potassium. Patient refusing meds and not eating at all per RN report. Totally noncooperative during the encounternot respond to any question. Keeps her eye closing and covering her face with her forearm. Will order for tube feeding and Dobbhoff tube. Continue to follow. We will also add Megace to boost appetite. 07/23: started on TF, follow BMP, change iv fluid to 1/2 NS. patient remains nonverbal 07/24; clinically unchanged, replete K, iv fluid and TF. reconsult psych as patient remains in catatonic phase 07/25: psych recommendation noted, continue tube feeding, continue to replete electrolytes as needed, follow BMP. I strongly believe her severe electrolytes derangement and encephalopathy related to her catatonia, poor oral intake other than any underlying medical conditions. There is no family contact in file, no home address available, patient appeared to be unfunded. transportation project manager working on placement. 07/26: psych recommendation noted, continue tube feeding, continue to replete electrolytes as needed, follow BMP. I strongly believe her severe electrolytes derangement and encephalopathy related to her catatonia, poor oral intake other than any underlying medical conditions. There is no family contact in file, no home address available, patient appeared to be unfunded. transportation project manager working on placement. 07/27; continue with tube feeding. There is no family contact in file, no home address available, patient appeared to be unfunded. Case management is following. 07/28; patient still on tube feeding, patient is noncommunicative. I believe her condition is related to her catatonia. Psych is following her. Currently her electrolytes are corrected. There is no family contact in file, no home address available, patient appeared to be unfunded. Case management is following. 07/29 patient is nonverbal, eyes open does not follow simple commands,, still having low-grade fever T-max 100 degrees,, lab results reviewed discussed with RN- still has loose stools, casework specialist notes reviewed, unable to contact family 07/30 no acute events overnight, diarrhea improved, stop IV fluids, disposition to be decided 07/31: chemistry technical officer presented to the bedside to attempt to fingerprint the patient to identify her. However his machine was not working 08/01:' Per casework specialist note [facility] Police Department has been contacted to help in identifying the patient. On officer is to report to bedside and was instructed to call the casework specialist upon arrival. Objective - Constitutional Vitals: Vital Signs - 12hr 08/05/20 05:06 Temperature 97.6 F Pulse Rate 81 Respiratory 18 Rate Blood Pressure 110/63 O2 Sat by Pulse 96 Oximetry General appearance: Present: no acute distress, well-nourished - EENT Eyes: PERRL, EOM intact ENT: hearing intact, clear oral mucosa Ears: bilateral: normal - Neck Neck: supple, normal ROM - Respiratory Respiratory effort: normal Respiratory: bilateral: CTA - Breasts Breasts: normal - Cardiovascular Heart rate: 78 Rhythm: regular Heart Sounds: Present: S1 & S2. Absent: gallop, rub Extremities: pulses intact, No edema, normal color, Full ROM - Gastrointestinal General gastrointestinal: Present: soft, non-tender, non-distended, normal bowel sounds - Genitourinary Female genitourinary: normal - Integumentary Integumentary: clear, warm, dry - Musculoskeletal Musculoskeletal: 1, strength equal bilaterally - Neurologic Neurologic: moves all extremities - Psychiatric Psychiatric: memory intact, appropriate mood/affect, intact judgment & insight - Allied health notes Allied health notes reviewed: nursing, case management - Labs CBC & Chem 7: 07/26/20 07:30 08/03/20 06:05 Labs: Abnormal lab results 08/04/20 08/04/20 08/05/20 Range/Units 17:00 23:58 06:33 POC Glucose 123 H 110 H 115 H (70-105) HEART Score - HEART Score Risk factors: 1-2 risk factors Troponin: Troponin T < 0.010 ng/mL (0.00-0.029) 07/11/20 21:17 Troponin: < normal limit - Critical Actions Critical Actions: 0-3 pts:0.9-1.7%risk of adverse cardiac event.Candidate for discharge
--- NOTE | 2020-08-05 12:43 | Progress Note ---
Assessment and Plan Assessment and Plan - Patient Problems (1) C. difficile diarrhea Current Visit: Yes Status: Acute Plan to address problem: 07/19 C. difficile positive P.o. Vancomycin 100 mg every 6 hours (07/20 through 08/03) Contact isolation Supportive care -Finished oral vancomycin course Diarrhea has improved (2) Schizoaffective disorder Current Visit: Yes Status: Chronic Plan to address problem: Patient admitted catatonic state and is nonverbal at this time following commands Psychiatric consult completed; does not recommend inpatient at this time Haldol as needed, Depakote, Zyprexa Supportive care (3) Transaminitis Current Visit: Yes Status: Resolved (4) Metabolic encephalopathy Current Visit: Yes Status: Acute Plan to address problem: Multifactorial , schizoaffective disorder Patient came from [place], psych evaluation noted Psych now recommended for outpt f/u Continue NG tube feedings (5) Rhabdomyolysis Current Visit: Yes Status: Resolved Qualifiers: Rhabdomyolysis type: non-traumatic Qualified Code(s): M62.82 - Rhabdomyolysis (6) Dehydration Current Visit: Yes Status: Resolved (7) Hyponatremia Current Visit: Yes Status: Acute Plan to address problem: Admit sodium 142 07/31 134, slight hyponatremia at this time no intervention needed, 08/01 Na 136 Hydration with free water flush Trend BMP (8) Metabolic acidosis Current Visit: Yes Status: Resolved (9) Hypochloremia Current Visit: Yes Status: Acute Plan to address problem: 07/31 chloride 97, 08/02 chloride 97.9 Patient on tube feedings with [facility] We will continue to monitor as this is a slight decrease (10) DVT prophylaxis Current Visit: Yes Status: Acute Plan to address problem: SCDs to bilateral lower extremities while in bed Heparin subcu (11) Discharge planning issues Current Visit: Yes Status: Acute Plan to address problem: Patient's identity is not confirmed [facility] [employer] Department has been contacted to aid in identification however [facility] Department have been contacted Inpatient records requested from [facility] again on 08/02 Risk-management made aware of patient again on 08/02 Subjective Date of service: 08/04/20 Principal diagnosis: C diff Interval history: History Interval history: 60-year-old female patient with schizoaffective disorder with active hallucinations and confusion presented from [place] for altered mental status and poor intake on 07/13. She was found to have rhabdomyolysis and electrolyte imbalances. She then developed C. difficile diarrhea. Patient remains in catatonic state does not follow any commands and is nonverbal. She had a Dobbhoff tube in place with tube feeds infusing. No acute events reported overnight. [facility] Department has been contacted and advised to help identify this patient. Records have been requested again from [facility]. Risk regimen has been made aware of this patient again. 07/13; patient's CK levels trending down on 1678, continue IV hydration patient is more alert at times, hallucinating, Noncommunicative, severe hypokalemia, rep lace per protocol 07/14; potassium level significantly improved today to 3.2, replenish per protocol. CK levels trending down 828, continue IV hydration, monitor electrolytes 07/15; patient refused potassium yesterday today potassium levels again 2.7 We will add KCl to IV fluids, and IV K riders, monitor electrolytes. CK level 425. Refusing to eat confused noncommunicative. Possible inpatient psych admission when medically stable 07/16; rhabdomyolysis resolved, mild electrolyte imbalances, if corrected medically stable for inpatient psych placement 07/17: replete K and phosphate. repeat CBc BMP tomorrow. White count needs to be < 10 for inpt psych admission 07/18: cont to have mildly elevated white count, c/o loose stool. will check for C. def - start flagyl and cipro 07/19: White count normal today. change medications to Po. medically stable to go for inpt psych unit. 07/20; positive for C. def. patient not eating properly, refusing meds time to time. Psych now recommended outpt f/u. CM working on placement. Patient remains nonverbal, does not follow any commend and not giving any personal info. 07/21; K 2.0 today, cont to replete, follow BMP, patient remains nonverbal and not cooperative. refuses to eat and meds. cont d51/2NS. if condition doesnot improve will consider TF 07/22: Potassium level persistently remains low, magnesium 1.6 today. Will replete magnesium and potassium. Patient refusing meds and not eating at all per RN report. Totally noncooperative during the encounternot respond to any question. Keeps her eye closing and covering her face with her forearm. Will order for tube feeding and Dobbhoff tube. Continue to follow. We will also add Megace to boost appetite. 07/23: started on TF, follow BMP, change iv fluid to 1/2 NS. patient remains nonverbal 07/24; clinically unchanged, replete K, iv fluid and TF. reconsult psych as patient remains in catatonic phase 07/25: psych recommendation noted, continue tube feeding, continue to replete electrolytes as needed, follow BMP. I strongly believe her severe electrolytes derangement and encephalopathy related to her catatonia, poor oral intake other than any underlying medical conditions. There is no family contact in file, no home address available, patient appeared to be unfunded. systems manager working on placement. 07/26: psych recommendation noted, continue tube feeding, continue to replete electrolytes as needed, follow BMP. I strongly believe her severe electrolytes derangement and encephalopathy related to her catatonia, poor oral intake other than any underlying medical conditions. There is no family contact in file, no home address available, patient appeared to be unfunded. systems manager working on placement. 07/27; continue with tube feeding. There is no family contact in file, no home address available, patient appeared to be unfunded. Case management is following. 07/28; patient still on tube feeding, patient is noncommunicative. I believe her condition is related to her catatonia. Psych is following her. Currently her electrolytes are corrected. There is no family contact in file, no home address available, patient appeared to be unfunded. Case management is following. 07/29 patient is nonverbal, eyes open does not follow simple commands,, still having low-grade fever T-max 100 degrees,, lab results reviewed discussed with RN- still has loose stools, oil field caser notes reviewed, unable to contact family 07/30 no acute events overnight, diarrhea improved, stop IV fluids, disposition to be decided 07/31: global safety officer presented to the bedside to attempt to fingerprint the patient to identify her. However his machine was not working 08/01:' Per oil field caser note [facility] Department has been contacted to help in identifying the patient. On officer is to report to bedside and was instructed to call the oil field caser upon arrival. 08/02/2020 still has diarrhea 08/03/2020 diarrhea improving. Today is the last day of vancomycin 08/04/2020 patient has no diarrhea Objective - Constitutional Vitals: Vital Signs - 12hr 08/05/20 05:06 Temperature 97.6 F Pulse Rate 81 Respiratory 18 Rate Blood Pressure 110/63 O2 Sat by Pulse 96 Oximetry General appearance: Present: no acute distress, well-nourished - EENT Eyes: PERRL, EOM intact ENT: hearing intact, clear oral mucosa Ears: bilateral: normal - Neck Neck: supple, normal ROM - Respiratory Respiratory effort: normal Respiratory: bilateral: CTA - Breasts Breasts: normal - Cardiovascular Heart rate: 78 Rhythm: regular Heart Sounds: Present: S1 & S2. Absent: gallop, rub Extremities: pulses intact, No edema, normal color, Full ROM - Gastrointestinal General gastrointestinal: Present: soft, non-tender, non-distended, normal bowel sounds - Genitourinary Female genitourinary: normal - Integumentary Integumentary: clear, warm, dry - Musculoskeletal Musculoskeletal: 1, strength equal bilaterally - Neurologic Neurologic: moves all extremities - Psychiatric Psychiatric: memory intact, appropriate mood/affect, intact judgment & insight - Labs CBC & Chem 7: 07/26/20 07:30 08/03/20 06:05 Labs: Abnormal lab results 08/04/20 08/04/20 08/05/20 Range/Units 17:00 23:58 06:33 POC Glucose 123 H 110 H 115 H (70-105) HEART Score - HEART Score Risk factors: 1-2 risk factors Troponin: Troponin T < 0.010 ng/mL (0.00-0.029) 07/11/20 21:17 Troponin: < normal limit - Critical Actions Critical Actions: 0-3 pts:0.9-1.7%risk of adverse cardiac event.Candidate for discharge
--- NOTE | 2020-08-05 12:59 | Progress Note ---
Assessment and Plan Assessment and Plan - Patient Problems (1) C. difficile diarrhea Current Visit: Yes Status: Acute Plan to address problem: 07/19 C. difficile positive P.o. Vancomycin 100 mg every 6 hours (07/20 through 08/03) Contact isolation Supportive care -Finished oral vancomycin course Diarrhea has improved-resolved (2) Schizoaffective disorder Current Visit: Yes Status: Chronic Plan to address problem: Patient admitted catatonic state and is nonverbal at this time following commands Psychiatric consult completed; does not recommend inpatient at this time Haldol as needed, Depakote, Zyprexa Supportive care (3) Transaminitis Current Visit: Yes Status: Resolved (4) Metabolic encephalopathy Current Visit: Yes Status: Acute Plan to address problem: Multifactorial , schizoaffective disorder Patient came from [place], psych evaluation noted Psych now recommended for outpt f/u Continue NG tube feedings (5) Rhabdomyolysis Current Visit: Yes Status: Resolved Qualifiers: Rhabdomyolysis type: non-traumatic Qualified Code(s): M62.82 - Rhabdomyolysis (6) Dehydration Current Visit: Yes Status: Resolved (7) Hyponatremia Current Visit: Yes Status: Acute Plan to address problem: Admit sodium 142 07/31 134, slight hyponatremia at this time no intervention needed, 08/01 Na 136 Hydration with free water flush Trend BMP (8) Metabolic acidosis Current Visit: Yes Status: Resolved (9) Hypochloremia Current Visit: Yes Status: Acute Plan to address problem: 07/31 chloride 97, 08/02 chloride 97.9 Patient on tube feedings with [facility] We will continue to monitor as this is a slight decrease (10) DVT prophylaxis Current Visit: Yes Status: Acute Plan to address problem: SCDs to bilateral lower extremities while in bed Heparin subcu (11) Discharge planning issues Current Visit: Yes Status: Acute Plan to address problem: Patient's identity is not confirmed [facility] [id number] Department has been contacted to aid in identification however [facility] Department have been contacted Inpatient records requested from [facility] again on 08/02 Risk-management made aware of patient again on 08/02 Subjective Date of service: 08/05/20 Principal diagnosis: C diff Interval history: History Interval history: 60-year-old female patient with schizoaffective disorder with active hallucinations and confusion presented from [place] for altered mental status and poor intake on 07/13. She was found to have rhabdomyolysis and electrolyte imbalances. She then developed C. difficile diarrhea. Patient remains in catatonic state does not follow any commands and is nonverbal. She had a Dobbhoff tube in place with tube feeds infusing. No acute events reported overnight. [facility] Police Department has been contacted and advised to help identify this patient. Records have been requested again from [facility]. Risk regimen has been made aware of this patient again. 07/13; patient's CK levels trending down on 1678, continue IV hydration patient is more alert at times, hallucinating, Noncommunicative, severe hypokalemia, replace per protocol 07/14; potassium level significantly improved today to 3.2, replenish per protocol. CK levels trending down 828, continue IV hydration, monitor electrolytes 07/15; patient refused potassium yesterday today potassium levels again 2.7 We will add KCl to IV fluids, and IV K riders, monitor electrolytes. CK level 425. Refusing to eat confused noncommunicative. Possible inpatient psych admission when medically stable 07/16; rhabdomyolysis resolved, mild electrolyte imbalances, if corrected medically stable for inpatient psych placement 07/17: replete K and phosphate. repeat CBc BMP tomorrow. White count needs to be < 10 for inpt psych admission 07/18: cont to have mildly elevated white count, c/o loose stool. will check for C. def - start flagyl and cipro 07/19: White count normal today. change medications to Po. medically stable to go for inpt psych unit. 07/20; positive for C. def. patient not eating properly, refusing meds time to time. Psych now recommended outpt f/u. CM working on placement. Patient remains nonverbal, does not follow any commend and not giving any personal info. 07/21; K 2.0 today, cont to replete, follow BMP, patient remains nonverbal and not cooperative. refuses to eat and meds. cont d51/2NS. if condition doesnot improve will consider TF 07/22: Potassium level persistently remains low, magnesium 1.6 today. Will replete magnesium and potassium. Patient refusing meds and not eating at all per RN report. Totally noncooperative during the encounternot respond to any question. Keeps her eye closing and covering her face with her forearm. Will order for tube feeding and Dobbhoff tube. Continue to follow. We will also add Megace to boost appetite. 07/23: started on TF, follow BMP, change iv fluid to 1/2 NS. patient remains nonverbal 07/24; clinically unchanged, replete K, iv fluid and TF. reconsult psych as patient remains in catatonic phase 07/25: psych recommendation noted, continue tube feeding, continue to replete electrolytes as needed, follow BMP. I strongly believe her severe electrolytes derangement and encephalopathy related to her catatonia, poor oral intake other than any underlying medical conditions. There is no family contact in file, no home address available, patient appeared to be unfunded. diabetes territory manager working on placement. 07/26: psych recommendation noted, continue tube feeding, continue to replete electrolytes as needed, follow BMP. I strongly believe her severe electrolytes derangement and encephalopathy related to her catatonia, poor oral intake other than any underlying medical conditions. There is no family contact in file, no home address available, patient appeared to be unfunded. diabetes territory manager working on placement. 07/27; continue with tube feeding. There is no family contact in file, no home address available, patient appeared to be unfunded. Case management is following. 07/28; patient still on tube feeding, patient is noncommunicative. I believe her condition is related to her catatonia. Psych is following her. Currently her electrolytes are corrected. There is no family contact in file, no home address available, patient appeared to be unfunded. Case management is following. 07/29 patient is nonverbal, eyes open does not follow simple commands,, still having low-grade fever T-max 100 degrees,, lab results reviewed discussed with RN- still has loose stools, medical case worker notes reviewed, unable to contact family 07/30 no acute events overnight, diarrhea improved, stop IV fluids, disposition to be decided 07/31: custody officer presented to the bedside to attempt to fingerprint the patient to identify her. However his machine was not working 08/01:' Per medical case worker note [facility] Department has been contacted to help in identifying the patient. On officer is to report to bedside and was instructed to call the medical case worker upon arrival. 08/02/2020 still has diarrhea 08/03/2020 diarrhea improving. Today is the last day of vancomycin 08/04/2020 patient has no diarrhea Objective - Constitutional Vitals: Vital Signs - 12hr 08/05/20 08/05/20 05:06 12:01 Temperature 97.6 F 98.9 F Pulse Rate 81 77 Respiratory 18 24 Rate Blood Pressure 110/63 104/65 O2 Sat by Pulse 96 97 Oximetry General appearance: Present: no acute distress, well-nourished - EENT Eyes: PERRL, EOM intact ENT: hearing intact, clear oral mucosa Ears: bilateral: normal - Neck Neck: supple, normal ROM - Respiratory Respiratory effort: normal Respiratory: bilateral: CTA - Breasts Breasts: normal - Cardiovascular Heart rate: 78 Rhythm: regular Heart Sounds: Present: S1 & S2. Absent: gallop, rub Extremities: pulses intact, No edema, normal color, Full ROM - Gastrointestinal General gastrointestinal: Present: soft, non-tender, non-distended, normal bowel sounds - Genitourinary Female genitourinary: normal - Integumentary Integumentary: clear, warm, dry - Musculoskeletal Musculoskeletal: 1, strength equal bilaterally - Neurologic Neurologic: moves all extremities - Psychiatric Psychiatric: memory intact, appropriate mood/affect, intact judgment & insight - Labs CBC & Chem 7: 07/26/20 07:30 08/03/20 06:05 Labs: Abnormal lab results 08/04/20 08/04/20 08/05/20 Range/Units 17:00 23:58 06:33 POC Glucose 123 H 110 H 115 H (70-105) HEART Score - HEART Score Risk factors: 1-2 risk factors Troponin: Troponin T < 0.010 ng/mL (0.00-0.029) 07/11/20 21:17 Troponin: < normal limit - Critical Actions Critical Actions: 0-3 pts:0.9-1.7%risk of adverse cardiac event.Candidate for discharge
[2020-08-06] MEDS: INSULIN REGULAR, HUMAN 100 UNIT/ML 3ML VIAL SUB-Q SCH ×4 (00:26→18:26)
[2020-08-06] MEDS: HEPARIN 5,000 UNIT/1 ML VIAL SUB-Q SCH ×3 (02:28→18:36)
[2020-08-06 09:49] LABS: Alanine Aminotransferase 41 units/L (7-56); Albumin 3.8 g/dL (3.9-5); BUN/Creatinine Ratio 50; Blood Urea Nitrogen 15 mg/dL (7-17); Calcium 9.5 mg/dL (8.4-10.2); Hemolysis Index 17
[2020-08-06] MEDS: VALPROIC ACID 250 MG/5 ML ORAL LIQD FEEDTUBE SCH ×2 (09:54→22:20)
[2020-08-06] MEDS: MEGESTROL 400 MG/10 ML ORAL LIQD PO SCH (09:54)
--- NOTE | 2020-08-06 16:37 | XRay Report ---
ABDOMEN 1 VIEW(S) 08/06/2020 4:24 PM INDICATION / CLINICAL INFORMATION: DOBHOFF VERIFICATION FOR FEEDING. COMPARISON: 08/01/2020 FINDINGS: The tip of a weighted feeding tube projects over the body of the stomach. Signer Name: Daryl Melvin MD Signed: 08/06/2020 4:33 PM Workstation Name: [id number]
--- NOTE | 2020-08-06 17:57 | Progress Note ---
Assessment and Plan - Patient Problems (1) C. difficile diarrhea Current Visit: Yes Status: Resolved Plan to address problem: 07/19 C. difficile positive P.o. Vancomycin 105 mg every 6 hours (07/20 through 08/03) Contact isolation Supportive care (2) Schizoaffective disorder Current Visit: Yes Status: Chronic Plan to address problem: Patient admitted catatonic state and is nonverbal at this time following commands Psychiatric consult completed; does not recommend inpatient at this time Haldol as needed, Depakote, Zyprexa Supportive care (3) Metabolic encephalopathy Current Visit: Yes Status: Acute Plan to address problem: Multifactorial , schizoaffective disorder Patient came from [place], psych evaluation noted Psych now recommended for outpt f/u Continue NG tube feedings (4) Hyponatremia Current Visit: Yes Status: Acute Plan to address problem: Admit sodium 142 07/31 134, slight hyponatremia at this time no intervention needed, 08/01 Na 136 however she has remained hyponatremic Hydration with free water flush; 50ml q6 hours while hyponatremic-> informed RN on 08/06 Trend BMP (5) Hypochloremia Current Visit: Yes Status: Acute Plan to address problem: 07/31 chloride 97, 08/02 chloride 97.9, 08/06 chloride 97.0 Patient on tube feedings with FWF We will continue to monitor Trend BMP (6) DVT prophylaxis Current Visit: Yes Status: Acute Plan to address problem: SCDs to bilateral lower extremities while in bed Heparin subcu (7) Discharge planning issues Current Visit: Yes Status: Acute Plan to address problem: Patient's identity is not confirmed [facility] to aid in identification however unsuccessful [facility] have been contacted Inpatient records requested from [facility] again on 08/02 Risk-management made aware of patient again on 08/02 Patient identification confirmed with [facility] Attempted to contact children, CM has an email address and an email was sent over the weekend however there is been no reply History Interval history: 60-year-old female patient with schizoaffective disorder with active hallucinations and confusion presented from [place] for altered mental status and poor intake on 07/13. She was found to have rhabdomyolysis and electrolyte imba lances. She then developed C. difficile diarrhea and she has completed her regimen of p.o. vancomycin from 07/20-08/03. Patient remains in catatonic state does not follow any commands and is nonverbal. She had a Dobbhoff tube in place with tube feeds infusing. No acute events reported overnight. Patient remains hyponatremic and hypochloremic and after conversing with nurse patient has been getting 100 mL of FWF every 4 hours instead of the 50 mL of FWF every 6 hours prescribed by the quality assurance group leader while the patient has hyponatremia. Patient was found in the [facility] records and her family has been contacted via email because we do not have a phone number over the weekend. No response has been given yet. Patient remains with a Dobbhoff tube in place. Patient was reported to have a seizure overnight and Ativan was ordered however patient did not receive her Ativan. According to dayshift RN it was reported that the patient "did not need the medication because she was not having seizure activity at that moment." Patient still remains in catatonic state moaning and not responding to verbal stimuli however she does withdraw to noxious stimuli. 07/13; patient's CK levels trending down on 1678, continue IV hydration patient is more alert at times, hallucinating, Noncommunicative, severe hypokalemia, replace per protocol 07/14; potassium level significantly improved today to 3.2, replenish per protocol. CK levels trending down 828, continue IV hydration, monitor electrolytes 07/15; patient refused potassium yesterday today potassium levels again 2.7 We will add KCl to IV fluids, and IV K riders, monitor electrolytes. CK level 425. Refusing to eat confused noncommunicative. Possible inpatient psych admission when medically stable 07/16; rhabdomyolysis resolved, mild electrolyte imbalances, if corrected medically stable for inpatient psych placement 07/17: replete K and phosphate. repeat CBc BMP tomorrow. White count needs to be < 10 for inpt psych admission 07/18: cont to have mildly elevated white count, c/o loose stool. will check for C. def - start flagyl and cipro 07/19: White count normal today. change medications to Po. medically stable to go for inpt psych unit. 07/20; positive for C. def. patient not eating properly, refusing meds time to time. Psych now recommended outpt f/u. CM working on placement. Patient remains nonverbal, does not follow any commend and not giving any personal info. 07/21; K 2.0 today, cont to replete, follow BMP, patient remains nonverbal and not cooperative. refuses to eat and meds. cont d51/2NS. if condition doesnot improve will consider TF 07/22: Potassium level persistently remains low, magnesium 1.6 today. Will replete magnesium and potassium. Patient refusing meds and not eating at all per RN report. Totally noncooperative during the encounternot respond to any question. Keeps her eye closing and covering her face with her forearm. Will order for tube feeding and Dobbhoff tube. Continue to follow. We will also add Megace to boost appetite. 07/23: started on TF, follow BMP, change iv fluid to 1/2 NS. patient remains nonverbal 07/24; clinically unchanged, replete K, iv fluid and TF. reconsult psych as patient remains in catatonic phase 07/25: psych recommendation noted, continue tube feeding, continue to replete electrolytes as needed, follow BMP. I strongly believe her severe electrolytes derangement and encephalopathy related to her catatonia, poor oral intake other than any underlying medical conditions. There is no family contact in file, no home address available, patient appeared to be unfunded. manager manufacturing working on placement. 07/26: psych recommendation noted, continue tube feeding, continue to replete electrolytes as needed, follow BMP. I strongly believe her severe electrolytes derangement and encephalopathy related to her catatonia, poor oral intake other than any underlying medical conditions. There is no family contact in file, no home address available, patient appeared to be unfunded. manager manufacturing working on placement. 07/27; continue with tube feeding. There is no family contact in file, no home address available, patient appeared to be unfunded. Case management is following. 07/28; patient still on tube feeding, patient is noncommunicative. I believe her condition is related to her catatonia. Psych is following her. Currently her electrolytes are corrected. There is no family contact in file, no home address available, patient appeared to be unfunded. Case management is following. 07/29 patient is nonverbal, eyes open does not follow simple commands,, still having low-grade fever T-max 100 degrees,, lab results reviewed discussed with RN- still has loose stools, customer acquisition manager notes reviewed, unable to contact family 07/30 no acute events overnight, diarrhea improved, stop IV fluids, disposition to be decided 07/31: technology officer presented to the bedside to attempt to fingerprint the patient to identify her. However his machine was not working 08/01:' Per customer acquisition manager note [facility] has been contacted to help in identifying the patient. On officer is to report to bedside and was instructed to call the customer acquisition manager upon arrival. 08/02/2020 still has diarrhea 08/03/2020 diarrhea improving. Today is the last day of vancomycin 08/04/2020 patient has no diarrhea Hospitalist Physical - Physical exam Narrative exam: General appearance: Present: no acute distress, other (Nonverbal, awake) - EENT Eyes: Present: PERRL - Neck Neck: Present: supple, normal ROM - Respiratory Respiratory effort: normal Respiratory: bilateral: CTA - Cardiovascular Rhythm: regular Heart Sounds: Present: S1 & S2. Absent: systolic murmur, diastolic murmur - Extremities Extremities: no ischemia, pulses intact, pulses symmetrical, No edema, normal temperature, normal color, Full ROM Peripheral Pulses: within normal limits - Abdominal General gastrointestinal: soft, non-tender, non-distended, normal bowel sounds - Integumentary Integumentary: Present: clear, warm, dry - Psychiatric Psychiatric: other (Patient is nonverbal, does not follow any commands however does withdraw to pain to all 4 extremities) - Neurologic Neurologic: moves all extremities (spontaneously) - Constitutional Vitals: Temp Pulse Resp BP Pulse Ox 98.7 F 92 H 18 120/77 96 08/06/20 17:07 08/06/20 17:07 08/06/20 17:07 08/06/20 17:07 08/06/20 17:07 General appearance: Present: no acute distress, well-nourished HEART Score - HEART Score Risk factors: 1-2 risk factors Troponin: Troponin T < 0.010 ng/mL (0.00-0.029) 07/11/20 21:17 Troponin: < normal limit - Critical Actions Critical Actions: 0-3 pts:0.9-1.7%risk of adverse cardiac event.Candidate for discharge Results - Labs CBC & Chem 7: 07/26/20 07:30 08/06/20 08:59 Labs: Laboratory Last Values WBC 9.5 K/mm3 (4.5-11.0) 07/26/20 07:30 RBC 4.17 M/mm3 (3.65-5.03) 07/26/20 07:30 Hgb 13.9 gm/dl (10.1-14.3) 07/26/20 07:30 Hct 40.4 % (30.3-42.9) 07/26/20 07:30 MCV 97 fl (79-97) 07/26/20 07:30 MCH 33 pg (28-32) H 07/26/20 07:30 MCHC 34 % (30-34) 07/26/20 07:30 RDW 14.4 % (13.2-15.2) 07/26/20 07:30 Plt Count 464 K/mm3 (140-440) H 07/26/20 07:30 Lymph % (Auto) 21.6 % (13.4-35.0) 07/26/20 07:30 [place] % (Auto) 6.2 % (0.0-7.3) 07/26/20 07:30 Eos % (Auto) 0.5 % (0.0-4.3) 07/26/20 07:30 Baso % (Auto) 0.3 % (0.0-1.8) 07/26/20 07:30 Lymph # (Auto) 2.0 K/mm3 (1.2-5.4) 07/26/20 07:30 [place] # (Auto) 0.6 K/mm3 (0.0-0.8) 07/26/20 07:30 Eos # (Auto) 0.1 K/mm3 (0.0-0.4) 07/26/20 07:30 Baso # (Auto) 0.0 K/mm3 (0.0-0.1) 07/26/20 07:30 Seg Neutrophils % 71.4 % (40.0-70.0) H 07/26/20 07:30 Seg Neutrophils # 6.8 K/mm3 (1.8-7.7) 07/26/20 07:30 Sodium 133 mmol/L (137-145) L 08/06/20 08:59 Potassium 4.9 mmol/L (3.6-5.0) 08/06/20 08:59 Chloride 97.0 mmol/L (98-107) L 08/06/20 08:59 Carbon Dioxide 26 mmol/L (22-30) 08/06/20 08:59 Anion Gap 15 mmol/L 08/06/20 08:59 BUN 15 mg/dL (7-17) 08/06/20 08:59 Creatinine 0.3 mg/dL (0.6-1.2) L 08/06/20 08:59 Estimated GFR > 60 ml/min 08/06/20 08:59 BUN/Creatinine Ratio 50 % 08/06/20 08:59 Glucose 130 mg/dL (65-100) H 08/06/20 08:59 POC Glucose 87 (70-105) 08/06/20 17:20 Lactic Acid 1.50 mmol/L (0.7-2.0) 07/12/20 00:04 Phosphorus 3.10 mg/dL (2.5-4.5) 07/24/20 06:00 Magnesium 2.10 mg/dL (1.7-2.3) 07/24/20 06:00 Calcium 9.5 mg/dL (8.4-10.2) 08/06/20 08:59 Direct Bilirubin < 0.2 mg/dL (0-0.2) 07/13/20 09:33 Ammonia 28.0 umol/L (25-60) 07/11/20 21:17 Total Bilirubin 0.40 mg/dL (0.1-1.2) 08/06/20 08:59 Total Creatine Kinase 102 units/L (30-135) 07/17/20 05:21 CK-MB (CK-2) 9.2 ng/mL (0.0-4.0) H 07/12/20 15:13 AST 63 units/L (5-40) H 08/06/20 08:59 ALT 41 units/L (7-56) 08/06/20 08:59 CK-MB (CK-2) Rel Index 0.4 (0-4) 07/12/20 15:13 Alkaline Phosphatase 59 units/L (35-129) 08/06/20 08:59 Troponin T < 0.010 ng/mL (0.00-0.029) 07/11/20 21:17 Total Protein 6.6 g/dL (6.3-8.2) 08/06/20 08:59 Albumin 3.8 g/dL (3.9-5) L 08/06/20 08:59 Albumin/Globulin Ratio 1.4 % 08/06/20 08:59 Urine Color Yellow (Yellow) 07/11/20 Unknown Urine Turbidity Clear (Clear) 07/11/20 Unknown Urine pH 6.0 (5.0-7.0) 07/11/20 Unknown Ur Specific [place] 1.023 (1.003-1.030) 07/11/20 Unknown Urine Protein 30 mg/dl mg/dL (Negative) 07/11/20 Unknown Urine Glucose (UA) Neg mg/dL (Negative) 07/11/20 Unknown Urine Ketones Tr mg/dL (Negative) 07/11/20 Unknown Urine Blood Neg (Negative) 07/11/20 Unknown Urine Nitrite Neg (Negative) 07/11/20 Unknown Urine Bilirubin Neg (Negative) 07/11/20 Unknown Urine Urobilinogen 2.0 mg/dL (<2.0) 07/11/20 Unknown Ur Leukocyte Esterase Neg (Negative) 07/11/20 Unknown Urine WBC (Auto) 2.0 /HPF (0.0-6.0) 07/11/20 Unknown Urine RBC (Auto) 3.0 /HPF (0.0-6.0) 07/11/20 Unknown U Epithel Cells (Auto) 3.0 /HPF (0-13.0) 07/11/20 Unknown Urine Mucus 3+ /HPF 07/11/20 Unknown Salicylates < 0.3 mg/dL (2.8-20.0) L 07/11/20 21:17 Urine Opiates Screen Presumptive negative 07/11/20 Unknown Urine Methadone Screen Presumptive negative 07/11/20 Unknown Acetaminophen 5.0 ug/mL (10.0-30.0) L 07/11/20 21:17 Ur Barbiturates Screen Presumptive negative 07/11/20 Unknown Valproic Acid 7.7 ug/mL (50-100) L 07/19/20 08:12 Ur Phencyclidine Scrn Presumptive negative 07/11/20 Unknown Ur Amphetamines Screen Presumptive negative 07/11/20 Unknown U Benzodiazepines Scrn Presumptive negative 07/11/20 Unknown Urine Cocaine Screen Presumptive negative 07/11/20 Unknown U Marijuana (THC) Screen Presumptive negative 09/09/20 Unknown Drugs of Abuse Note Disclamer 07/11/20 Unknown C. difficile Tox (PCR) Positive (Negative) 07/19/20 18:51 [place]/IV: Voiding Method External Female Catheter IV Catheter Type [Right INT / Saline Lock Antecubital] IV Catheter Type [Left Forearm INT / Saline Lock ] IV Catheter Type [Right Hand] Peripheral IV IV Catheter Type [Right Peripheral IV Forearm] IV Catheter Type [Left Hand] INT / Saline Lock Active Medications - Current Medications Current Medications: Generic Name Dose Route Start Last Admin Trade Name Freq PRN Reason Stop Dose Admin Acetaminophen 650 mg 07/12/20 01:05 07/27/20 01:[address] 650 mg Q4H PRN Administration Fever >101 Lipase/Protease/Amylase 1 each 07/22/20 07:44 Pancrebetty Sprague 10,500 Unit FEEDTUBE PRN PRN For Clogged Feeding Tube Haloperidol Lactate 5 mg 07/18/20 13:15 07/21/20 22:06 Haldol IM 5 mg Q6H PRN Administration Agitation Heparin Sodium (Porcine) 5,000 unit 07/12/20 10:00 08/06/20 09:55 Heparin SUB-Q 5,000 unit Q8H KEITH Administration Insulin Human Regular 0 unit 07/23/20 09:00 08/06/20 17:15 Humulin R SUB-Q Not Given Q6HR [facility] Protocol Lorazepam 2 mg 08/06/20 05:05 Ativan IV Q4H PRN Agitation Megestrol Acetate 400 mg 07/22/20 10:00 08/06/20 09:54 Megestrol PO 400 mg QDAY KEITH Administration Olanzapine 2.5 mg 07/25/20 22:00 08/05/20 21:13 Zyprexa PO 2.5 mg QHS KEITH Administration Ondansetron HCl 4 mg 07/12/20 01:06 Zofran IV Q8H PRN Nausea And Vomiting Simple Syrup 15 ml 07/22/20 07:44 Simple Syrup FEEDTUBE PRN PRN Hypoglycemia Simple Syrup 30 ml 07/22/20 07:44 Simple Syrup FEEDTUBE PRN PRN Hypoglycemia Sodium Bicarbonate 325 mg 07/22/20 07:44 Sodium Bicarbonate FEEDTUBE PRN PRN For Clogged Feeding Tube Valproic Acid 250 mg 07/25/20 22:00 08/06/20 09:54 Depakene Liq FEEDTUBE 250 mg BID KEITH Administration Nutrition/Malnutrition Assess - Dietary Evaluation Nutrition/Malnutrition Findings: Nutrition Notes Start: 07/12/20 11:40 Freq: Status: Active Protocol: Document 08/06/20 13:36 LM (Rec: 08/06/20 13:41 LM [id number]) Nutrition Notes Initial or Follow up Reassessment Other Pertinent Diagnosis C. diff (+), AMS, Rhabdomyolysis, dehydration, Hx of stroke Current Diet Osmolite 1.5 at 35ml/hr Labs/Tests Na 133 Cr 0.3 Pertinent Medications Reviewed Height 5 ft Weight 54.2 kg [place] Body Weight (kg) 45.45 BMI 23.3 Weight Status Appropriate Subjective/Other Information Pt tolerating TF at goal. Will decrease flush for hyponatremia. Percent of energy/protein needs met: 100%/90% Burn Absent Trauma Absent GI Symptoms None Current % PO Negligible Minimum of two criteria No Energy Intake (severe) < or equal to 50% Estimated Energy Requirement > or equal to 5 days #1 Nutrition Diagnosis Inadequate oral intake Diagnosis Progress(for reassessment Continues documentation) Is patient on ventilator? No Is Patient Ambulatory and/or Out of Bed No REE-([facility]-confined to bed) [phone] Calculation Used for Recommendations [facility] Additional Notes Protein Needs 59-70g (1-1.2g/ kg) Fluid Needs: 1ml/kcal Nutrition Intervention Change Diet Order: TF Nutrition Support: Osmolite 1.5 at 35ml/hr. Flush 50ml q6h for hyponatremia Flush 100ml q4hr once resolved Kcal 1,260 Protein (gm) 53 Fluid (mL) 640 Goal #1 Meet at least 80% of kcal and protein needs Anticipated Discharge Needs: unable to determine at this time Follow-Up By: 08/09/20 Additional Comments F/U for TF, Na
[2020-08-07] MEDS: INSULIN REGULAR, HUMAN 100 UNIT/ML 3ML VIAL SUB-Q SCH ×4 (00:30→17:13)
[2020-08-07] MEDS: HEPARIN 5,000 UNIT/1 ML VIAL SUB-Q SCH ×3 (02:28→17:13)
[2020-08-07 08:18] LABS: Hematocrit 45.5 % (30.3-42.9); Hemoglobin 15.2 gm/dl (10.1-14.3); Mean Corpuscular HGB Conc 33 % (30-34); Mean Corpuscular Volume 97 fl (79-97); Platelet Count 663 K/mm3 (140-440); Red Blood Count 4.69 M/mm3 (3.65-5.03); Red Cell Distribution Width 14.4 % (13.2-15.2)
[2020-08-07 08:33] LABS: BUN/Creatinine Ratio 47; Blood Urea Nitrogen 14 mg/dL (7-17); Calcium 9.1 mg/dL (8.4-10.2); Hemolysis Index 8
[2020-08-07] MEDS: MEGESTROL 400 MG/10 ML ORAL LIQD PO SCH (11:53)
[2020-08-07] MEDS: VALPROIC ACID 250 MG/5 ML ORAL LIQD FEEDTUBE SCH ×2 (11:53→22:00)
[2020-08-07] MEDS ORDERED: SODIUM CHLORIDE 0.9% 1000 ML 1,000 ML IV SCH (13:45)
--- NOTE | 2020-08-07 15:39 | Progress Note ---
<FAB TAMAYO - Last Filed: 08/07/20 15:41> Assessment and Plan - Patient Problems (1) Schizoaffective disorder Current Visit: Yes Status: Chronic Plan to address problem: Patient admitted catatonic state and is nonverbal at this time following commands Psychiatric consult completed; does not recommend inpatient at this time Haldol as needed, Depakote, Zyprexa Supportive care (2) Metabolic encephalopathy Current Visit: Yes Status: Acute Plan to address problem: Multifactorial , schizoaffective disorder Patient came from [place], psych evaluation noted Psych now recommended for outpt f/u Continue NG tube feedings (3) Hyponatremia Current Visit: Yes Status: Acute Plan to address problem: Admit sodium 142 07/31 134, slight hyponatremia at this time no intervention needed, 08/01 Na 136 however she has remained hyponatremic Hydration with free water flush; 50ml q6 hours while hyponatremic-> informed RN on 08/06 08/07 sodium 136 Trend BMP (4) Hypochloremia Current Visit: Yes Status: Acute Plan to address problem: 07/31 chloride 97, 08/02 chloride 97.9, 08/06 chloride 97.0, 08/07 chloride 97.0 Patient on tube feedings with FWF We will continue to monitor Trend BMP (5) DVT prophylaxis Current Visit: Yes Status: Acute Plan to address problem: SCDs to bilateral lower extremities while in bed Heparin subcu (6) Discharge planning issues Current Visit: Yes Status: Acute Plan to address problem: Patient's identity is not confirmed [facility] has been contacted to aid in identification however unsuccessful [facility] have been contacted Inpatient records requested from [facility] again on 08/02 Risk-management made aware of patient again on 08/02 Patient identification confirmed with [facility] Department Attempted to contact children, CM has an email address and an email was sent over the weekend however there is been no reply 08/07: 2 physician consent for PEG tube obtained and GI consulted for PEG tube placement History Interval history: 60-year-old female patient with schizoaffective disorder with active hallucinations and confusion presented from [place] for altered mental status and poor intake on 07/13. She was found to have rhabdomyolysis and electrolyte imbalances. She then developed C. difficile diarrhea and she has completed her regimen of p.o. vancomycin from 07/20-08/03. Patient remains in catatonic state does not follow any commands and is nonverbal. She had a Dobbhoff tube in place with tube feeds infusing. No acute events reported overnight. Patient was found in the [facility] [employer] records and her family has been contacted via email because we do not have a phone number over the weekend. No response has been given yet. Patient remains with a Dobbhoff tube in place. Psychiatry requested inpatient records from [facility]. Two physician consent for PEG tube placement obtained, GI consulted. This morning patient remains hyponatremic and hypochloremic. Her NG tube was replaced this afternoon. 07/13; patient's CK levels trending down on 1678, continue IV hydration patient is more alert at times, hallucinating, Noncommunicative, severe hypokalemia, replace per protocol 07/14; potassium level significantly improved today to 3.2, replenish per protocol. CK levels trending down 828, continue IV hydration, monitor rita ctrolytes 07/15; patient refused potassium yesterday today potassium levels again 2.7 We will add KCl to IV fluids, and IV K riders, monitor electrolytes. CK level 425. Refusing to eat confused noncommunicative. Possible inpatient psych admission when medically stable 07/16; rhabdomyolysis resolved, mild electrolyte imbalances, if corrected medically stable for inpatient psych placement 07/17: replete K and phosphate. repeat CBc BMP tomorrow. White count needs to be < 10 for inpt psych admission 07/18: cont to have mildly elevated white count, c/o loose stool. will check for C. def - start flagyl and cipro 07/19: White count normal today. change medications to Po. medically stable to go for inpt psych unit. 07/20; positive for C. def. patient not eating properly, refusing meds time to time. Psych now recommended outpt f/u. CM working on placement. Patient remains nonverbal, does not follow any commend and not giving any personal info. 07/21; K 2.0 today, cont to replete, follow BMP, patient remains nonverbal and not cooperative. refuses to eat and meds. cont d51/2NS. if condition doesnot improve will consider TF 07/22: Potassium level persistently remains low, magnesium 1.6 today. Will replete magnesium and potassium. Patient refusing meds and not eating at all per RN report. Totally noncooperative during the encounternot respond to any question. Keeps her eye closing and covering her face with her forearm. Will order for tube feeding and Dobbhoff tube. Continue to follow. We will also add Megace to boost appetite. 07/23: started on TF, follow BMP, change iv fluid to 1/2 NS. patient remains nonverbal 07/24; clinically unchanged, replete K, iv fluid and TF. reconsult psych as patient remains in catatonic phase 07/25: psych recommendation noted, continue tube feeding, continue to replete electrolytes as needed, follow BMP. I strongly believe her severe electrolytes derangement and encephalopathy related to her catatonia, poor oral intake other than any underlying medical conditions. There is no family contact in file, no home address available, patient appeared to be unfunded. manager residential working on placement. 07/26: psych recommendation noted, continue tube feeding, continue to replete electrolytes as needed, follow BMP. I strongly believe her severe electrolytes derangement and encephalopathy related to her catatonia, poor oral intake other than any underlying medical conditions. There is no family contact in file, no home address available, patient appeared to be unfunded. manager residential working on placement. 07/27; continue with tube feeding. There is no family contact in file, no home address available, patient appeared to be unfunded. Case management is following. 07/28; patient still on tube feeding, patient is noncommunicative. I believe her condition is related to her catatonia. Psych is following her. Currently her electrolytes are corrected. There is no family contact in file, no home address available, patient appeared to be unfunded. Case management is following. 07/29 patient is nonverbal, eyes open does not follow simple commands,, still having low-grade fever T-max 100 degrees,, lab results reviewed discussed with RN- still has loose stools, director case management notes reviewed, unable to contact family 07/30 no acute events overnight, diarrhea improved, stop IV fluids, disposition to be decided 07/31: disability liaison officer presented to the bedside to attempt to fingerprint the patient to identify her. However his machine was not working 08/01:' Per director case management note [facility] has been contacted to help in identifying the patient. On officer is to report to bedside and was instructed to call the director case management upon arrival. 08/02/2020 still has diarrhea 08/03/2020 diarrhea improving. Today is the last day of vancomycin 08/04/2020 patient has no diarrhea 08/05: slot shift manager RN reported patient had a seizure overnight, Ativan was ordered however was not administered because according to the dayshift RN he was reported that the patient "did not need the medication because she was not having a seizure at the moment". Patient remained hyponatremic and hypochloremic and after conversing with the nurse patient was not getting her prescribed dose FWF for hyponatremia which was corrected Hospitalist Physical - Physical exam Narrative exam: General appearance: Present: no acute distress, other (Nonverbal, awake) - EENT Eyes: Present: PERRL - Neck Neck: Present: supple, normal ROM - Respiratory Respiratory effort: normal Respiratory: bilateral: CTA - Cardiovascular Rhythm: regular Heart Sounds: Present: S1 & S2. Absent: systolic murmur, diastolic murmur - Extremities Extremities: no ischemia, pulses intact, pulses symmetrical, No edema, normal temperature, normal color, Full ROM Peripheral Pulses: within normal limits - Abdominal General gastrointestinal: soft, non-tender, non-distended, normal bowel sounds - Integumentary Integumentary: Present: clear, warm, dry - Psychiatric Psychiatric: other (Patient is nonverbal, does not follow any commands however does withdraw to pain to all 4 extremities) - Neurologic Neurologic: moves all extremities (spontaneously) - Constitutional Vitals: Temp Pulse Resp BP Pulse Ox 98.3 F 97 H 18 114/63 95 08/07/20 12:05 08/07/20 12:05 08/07/20 12:05 08/07/20 12:05 08/07/20 12:05 General appearance: Present: no acute distress, well-nourished HEART Score - HEART Score Risk factors: 1-2 risk factors Troponin: Troponin T < 0.010 ng/mL (0.00-0.029) 07/11/20 21:17 Troponin: < normal limit - Critical Actions Critical Actions: 0-3 pts:0.9-1.7%risk of adverse cardiac event.Candidate for discharge Results - Labs CBC & Chem 7: 08/07/20 07:19 08/07/20 07:19 Labs: Laboratory Last Values WBC 8.8 K/mm3 (4.5-11.0) 08/07/20 07:19 RBC 4.69 M/mm3 (3.65-5.03) 08/07/20 07:19 Hgb 15.2 gm/dl (10.1-14.3) H 08/07/20 07:19 Hct 45.5 % (30.3-42.9) H 08/07/20 07:19 MCV 97 fl (79-97) 08/07/20 07:19 MCH 33 pg (28-32) H 08/07/20 07:19 MCHC 33 % (30-34) 08/07/20 07:19 RDW 14.4 % (13.2-15.2) 08/07/20 07:19 Plt Count 663 K/mm3 (140-440) H 08/07/20 07:19 Lymph % (Auto) 21.6 % (13.4-35.0) 07/26/20 07:30 Cochran % (Auto) 6.2 % (0.0-7.3) 07/26/20 07:30 Eos % (Auto) 0.5 % (0.0-4.3) 07/26/20 07:30 Baso % (Auto) 0.3 % (0.0-1.8) 07/26/20 07:30 Lymph # (Auto) 2.0 K/mm3 (1.2-5.4) 07/26/20 07:30 Cochran # (Auto) 0.6 K/mm3 (0.0-0.8) 07/26/20 07:30 Eos # (Auto) 0.1 K/mm3 (0.0-0.4) 07/26/20 07:30 Baso # (Auto) 0.0 K/mm3 (0.0-0.1) 07/26/20 07:30 Seg Neutrophils % 71.4 % (40.0-70.0) H 07/26/20 07:30 Seg Neutrophils # 6.8 K/mm3 (1.8-7.7) 07/26/20 07:30 Sodium 136 mmol/L (137-145) L 08/07/20 07:19 Potassium 4.7 mmol/L (3.6-5.0) 08/07/20 07:19 Chloride 97.9 mmol/L (98-107) L 08/07/20 07:19 Carbon Dioxide 27 mmol/L (22-30) 08/07/20 07:19 Anion Gap 16 mmol/L 08/07/20 07:19 BUN 14 mg/dL (7-17) 08/07/20 07:19 Creatinine 0.3 mg/dL (0.6-1.2) L 08/07/20 07:19 Estimated GFR > 60 ml/min 08/07/20 07:19 BUN/Creatinine Ratio 47 % 08/07/20 07:19 Glucose 123 mg/dL (65-100) H 08/07/20 07:19 POC Glucose 92 (70-105) 08/07/20 12:19 Lactic Acid 1.50 mmol/L (0.7-2.0) 07/12/20 00:04 Phosphorus 3.10 mg/dL (2.5-4.5) 07/24/20 06:00 Magnesium 2.10 mg/dL (1.7-2.3) 07/24/20 06:00 Calcium 9.1 mg/dL (8.4-10.2) 08/07/20 07:19 Direct Bilirubin < 0.2 mg/dL (0-0.2) 07/13/20 09:33 Ammonia 28.0 umol/L (25-60) 07/11/20 21:17 Total Bilirubin 0.40 mg/dL (0.1-1.2) 08/06/20 08:59 Total Creatine Kinase 102 units/L (30-135) 07/17/20 05:21 CK-MB (CK-2) 9.2 ng/mL (0.0-4.0) H 07/12/20 15:13 AST 63 units/L (5-40) H 08/06/20 08:59 ALT 41 units/L (7-56) 08/06/20 08:59 CK-MB (CK-2) Rel Index 0.4 (0-4) 07/12/20 15:13 Alkaline Phosphatase 59 units/L (35-129) 08/06/20 08:59 Troponin T < 0.010 ng/mL (0.00-0.029) 07/11/20 21:17 Total Protein 6.6 g/dL (6.3-8.2) 08/06/20 08:59 Albumin 3.8 g/dL (3.9-5) L 08/06/20 08:59 Albumin/Globulin Ratio 1.4 % 08/06/20 08:59 Urine Color Yellow (Yellow) 07/11/20 Unknown Urine Turbidity Clear (Clear) 07/11/20 Unknown Urine pH 6.0 (5.0-7.0) 07/11/20 Unknown Ur Specific [place] 1.023 (1.003-1.030) 07/11/20 Unknown Urine Protein 30 mg/dl mg/dL (Negative) 07/11/20 Unknown Urine Glucose (UA) Neg mg/dL (Negative) 07/11/20 Unknown Urine Ketones Tr mg/dL (Negative) 07/11/20 Unknown Urine Blood Neg (Negative) 07/11/20 Unknown Urine Nitrite Neg (Negative) 07/11/20 Unknown Urine Bilirubin Neg (Negative) 07/11/20 Unknown Urine Urobilinogen 2.0 mg/dL (<2.0) 07/11/20 Unknown Ur Leukocyte Esterase Neg (Negative) 07/11/20 Unknown Urine WBC (Auto) 2.0 /HPF (0.0-6.0) 07/11/20 Unknown Urine RBC (Auto) 3.0 /HPF (0.0-6.0) 07/11/20 Unknown U Epithel Cells (Auto) 3.0 /HPF (0-13.0) 07/11/20 Unknown Urine Mucus 3+ /HPF 07/11/20 Unknown Salicylates < 0.3 mg/dL (2.8-20.0) L 07/11/20 21:17 Urine Opiates Screen Presumptive negative 07/11/20 Unknown Urine Methadone Screen Presumptive negative 07/11/20 Unknown Acetaminophen 5.0 ug/mL (10.0-30.0) L 07/11/20 21:17 Ur Barbiturates Screen Presumptive negative 07/11/20 Unknown Valproic Acid 7.7 ug/mL (50-100) L 07/19/20 08:12 Ur Phencyclidine Scrn Presumptive negative 07/11/20 Unknown Ur Amphetamines Screen Presumptive negative 07/11/20 Unknown U Benzodiazepines Scrn Presumptive negative 07/11/20 Unknown Urine Cocaine Screen Presumptive negative 07/11/20 Unknown U Marijuana (THC) Screen Presumptive negative 07/11/20 Unknown Drugs of Abuse Note Disclamer 07/11/20 Unknown C. difficile Tox (PCR) Positive (Negative) 07/19/20 18:51 Ledesma/IV: Voiding Method External Female Catheter IV Catheter Type [Right INT / Saline Lock Antecubital] IV Catheter Type [Left Forearm INT / Saline Lock ] IV Catheter Type [Right Hand] INT / Saline Lock IV Catheter Type [Right Peripheral IV Forearm] IV Catheter Type [Left Hand] INT / Saline Lock Active Medications - Current Medications Current Medications: Generic Name Dose Route Start Last Admin Trade Name Freq PRN Reason Stop Dose Admin Acetaminophen 650 mg 07/12/20 01:05 07/27/20 01:57 Tylenol AR 650 mg Q4H PRN Administration Fever >101 Lipase/Protease/Amylase 1 each 07/22/20 07:[address] 10,500 Unit FEEDTUBE PRN PRN For Clogged Feeding Tube Haloperidol Lactate 5 mg 07/18/20 13:15 07/21/20 22:06 Haldol IM 5 mg Q6H PRN Administration Agitation Heparin Sodium (Porcine) 5,000 unit 07/12/20 10:00 08/07/20 11:53 Heparin SUB-Q 5,000 unit Q8H KEITH Administration Sodium Chloride 1,000 mls @ 75 mls/hr 08/07/20 13:45 Nacl 0.9% 1000 Ml IV 08/08/20 03:04 DIRECT KEITH Insulin Human Regular 0 unit 07/23/20 09:00 08/07/20 13:24 Humulin R SUB-Q Not Given Q6HR [facility] Protocol Lorazepam 2 mg 08/06/20 05:05 Ativan IV Q4H PRN Agitation Megestrol Acetate 400 mg 07/22/20 10:00 08/07/20 11:53 Megestrol PO 400 mg QDAY KEITH Administration Olanzapine 2.5 mg 07/25/20 22:00 08/06/20 22:21 Zyprexa PO 2.5 mg QHS KEITH Administration Ondansetron HCl 4 mg 07/12/20 01:06 Zofran IV Q8H PRN Nausea And Vomiting Simple Syrup 15 ml 07/22/20 07:44 Simple Syrup FEEDTUBE PRN PRN Hypoglycemia Simple Syrup 30 ml 07/22/20 07:44 Simple Syrup FEEDTUBE PRN PRN Hypoglycemia Sodium Bicarbonate 325 mg 07/22/20 07:44 Sodium Bicarbonate FEEDTUBE PRN PRN For Clogged Feeding Tube Valproic Acid 250 mg 07/25/20 22:00 08/07/20 11:53 Depakene Liq FEEDTUBE 250 mg BID KEITH Administration Nutrition/Malnutrition Assess - Dietary Evaluation Nutrition/Malnutrition Findings: Nutrition Notes Start: 07/12/20 11:40 Freq: Status: Active Protocol: Document 08/06/20 13:36 LM (Rec: 08/06/20 13:41 LM [id number]) Nutrition Notes Initial or Follow up Reassessment Other Pertinent Diagnosis C. diff (+), AMS, Rhabdomyolysis, dehydration, Hx of stroke Current Diet Osmolite 1.5 at 35ml/hr Labs/Tests Na 133 Cr 0.3 Pertinent Medications Reviewed Height 5 ft Weight 54.2 kg Chambers Body Weight (kg) 45.45 BMI 23.3 Weight Status Appropriate Subjective/Other Information Pt tolerating TF at goal. Will decrease flush for hyponatremia. Percent of energy/protein needs met: 100%/90% Burn Absent Trauma Absent GI Symptoms None Current % PO Negligible Minimum of two criteria No Energy Intake (severe) < or equal to 50% Estimated Energy Requirement > or equal to 5 days #1 Nutrition Diagnosis Inadequate oral intake Diagnosis Progress(for reassessment Continues documentation) Is patient on ventilator? No Is Patient Ambulatory and/or Out of Bed No REE-([facility]-confined to bed) 1239.408 Calculation Used for Recommendations [facility] Additional Notes Protein Needs 59-70g (1-1.2g/ kg) Fluid Needs: 1ml/kcal Nutrition Intervention Change Diet Order: TF Nutrition Support: Osmolite 1.5 at 35ml/hr. Flush 50ml q6h for hyponatremia Flush 100ml q4hr once resolved Kcal 1,260 Protein (gm) 53 Fluid (mL) 640 Goal #1 Meet at least 80% of kcal and protein needs Anticipated Discharge Needs: unable to determine at this time Follow-Up By: 08/09/20 Additional Comments F/U for TF, Na <GANESH VAN M - Last Filed: 08/08/20 07:05> Hospitalist Physical - Constitutional Vitals: Temp Pulse Resp BP Pulse Ox 99.2 F 94 H 20 103/73 97 08/08/20 04:25 08/08/20 04:25 08/08/20 04:25 08/08/20 04:25 08/08/20 04:25 HEART Score - HEART Score Troponin: Troponin T < 0.010 ng/mL (0.00-0.029) 07/11/20 21:17 Results - Labs CBC & Chem 7: 08/07/20 07:19 08/07/20 07:19 Labs: Laboratory Last Values WBC 8.8 K/mm3 (4.5-11.0) 08/07/20 07:19 RBC 4.69 M/mm3 (3.65-5.03) 08/07/20 07:19 Hgb 15.2 gm/dl (10.1-14.3) H 08/07/20 07:19 Hct 45.5 % (30.3-42.9) H 08/07/20 07:19 MCV 97 fl (79-97) 08/07/20 07:19 MCH 33 pg (28-32) H 08/07/20 07:19 MCHC 33 % (30-34) 08/07/20 07:19 RDW 14.4 % (13.2-15.2) 08/07/20 07:19 Plt Count 663 K/mm3 (140-440) H 08/07/20 07:19 Lymph % (Auto) 21.6 % (13.4-35.0) 07/26/20 07:30 Cochran % (Auto) 6.2 % (0.0-7.3) 07/26/20 07:30 Eos % (Auto) 0.5 % (0.0-4.3) 07/26/20 07:30 Baso % (Auto) 0.3 % (0.0-1.8) 07/26/20 07:30 Lymph # (Auto) 2.0 K/mm3 (1.2-5.4) 07/26/20 07:30 Cochran # (Auto) 0.6 K/mm3 (0.0-0.8) 07/26/20 07:30 Eos # (Auto) 0.1 K/mm3 (0.0-0.4) 07/26/20 07:30 Baso # (Auto) 0.0 K/mm3 (0.0-0.1) 07/26/20 07:30 Seg Neutrophils % 71.4 % (40.0-70.0) H 07/26/20 07:30 Seg Neutrophils # 6.8 K/mm3 (1.8-7.7) 07/26/20 07:30 PT 11.7 Sec. (12.2-14.9) L 08/07/20 15:47 INR 0.84 (0.87-1.13) L 08/07/20 15:47 Sodium 136 mmol/L (137-145) L 08/07/20 07:19 Potassium 4.7 mmol/L (3.6-5.0) 08/07/20 07:19 Chloride 97.9 mmol/L (98-107) L 08/07/20 07:19 Carbon Dioxide 27 mmol/L (22-30) 08/07/20 07:19 Anion Gap 16 mmol/L 08/07/20 07:19 BUN 14 mg/dL (7-17) 08/07/20 07:19 Creatinine 0.3 mg/dL (0.6-1.2) L 08/07/20 07:19 Estimated GFR > 60 ml/min 08/07/20 07:19 BUN/Creatinine Ratio 47 % 08/07/20 07:19 Glucose 123 mg/dL (65-100) H 08/07/20 07:19 POC Glucose 115 (70-105) H 08/08/20 05:24 Lactic Acid 1.50 mmol/L (0.7-2.0) 07/12/20 00:04 Phosphorus 3.10 mg/dL (2.5-4.5) 07/24/20 06:00 Magnesium 2.10 mg/dL (1.7-2.3) 07/24/20 06:00 Calcium 9.1 mg/dL (8.4-10.2) 08/07/20 07:19 Direct Bilirubin < 0.2 mg/dL (0-0.2) 07/13/20 09:33 Ammonia 28.0 umol/L (25-60) 07/11/20 21:17 Total Bilirubin 0.40 mg/dL (0.1-1.2) 08/06/20 08:59 Total Creatine Kinase 102 units/L (30-135) 09/15/20 05:21 CK-MB (CK-2) 9.2 ng/mL (0.0-4.0) H 07/12/20 15:13 AST 63 units/L (5-40) H 08/06/20 08:59 ALT 41 units/L (7-56) 08/06/20 08:59 CK-MB (CK-2) Rel Index 0.4 (0-4) 07/12/20 15:13 Alkaline Phosphatase 59 units/L (35-129) 08/06/20 08:59 Troponin T < 0.010 ng/mL (0.00-0.029) 07/11/20 21:17 Total Protein 6.6 g/dL (6.3-8.2) 08/06/20 08:59 Albumin 3.8 g/dL (3.9-5) L 08/06/20 08:59 Albumin/Globulin Ratio 1.4 % 08/06/20 08:59 Urine Color Yellow (Yellow) 07/11/20 Unknown Urine Turbidity Clear (Clear) 07/11/20 Unknown Urine pH 6.0 (5.0-7.0) 07/11/20 Unknown Ur Specific [place] 1.023 (1.003-1.030) 07/11/20 Unknown Urine Protein 30 mg/dl mg/dL (Negative) 07/11/20 Unknown Urine Glucose (UA) Neg mg/dL (Negative) 07/11/20 Unknown Urine Ketones Tr mg/dL (Negative) 07/11/20 Unknown Urine Blood Neg (Negative) 07/11/20 Unknown Urine Nitrite Neg (Negative) 07/11/20 Unknown Urine Bilirubin Neg (Negative) 07/11/20 Unknown Urine Urobilinogen 2.0 mg/dL (<2.0) 07/11/20 Unknown Ur Leukocyte Esterase Neg (Negative) 07/11/20 Unknown Urine WBC (Auto) 2.0 /HPF (0.0-6.0) 07/11/20 Unknown Urine RBC (Auto) 3.0 /HPF (0.0-6.0) 07/11/20 Unknown U Epithel Cells (Auto) 3.0 /HPF (0-13.0) 07/11/20 Unknown Urine Mucus 3+ /HPF 07/11/20 Unknown Salicylates < 0.3 mg/dL (2.8-20.0) L 07/11/20 21:17 Urine Opiates Screen Presumptive negative 07/11/20 Unknown Urine Methadone Screen Presumptive negative 07/11/20 Unknown Acetaminophen 5.0 ug/mL (10.0-30.0) L 07/11/20 21:17 Ur Barbiturates Screen Presumptive negative 07/11/20 Unknown Valproic Acid 7.7 ug/mL (50-100) L 07/19/20 08:12 Ur Phencyclidine Scrn Presumptive negative 07/11/20 Unknown Ur Amphetamines Screen Presumptive negative 07/11/20 Unknown U Benzodiazepines Scrn Presumptive negative 07/11/20 Unknown Urine Cocaine Screen Presumptive negative 07/11/20 Unknown U Marijuana (THC) Screen Presumptive negative 07/11/20 Unknown Drugs of Abuse Note Disclamer 07/11/20 Unknown C. difficile Tox (PCR) Positive (Negative) 07/19/20 18:51 Ledesma/IV: Voiding Method External Female Catheter IV Catheter Type [Right INT / Saline Lock Antecubital] IV Catheter Type [Left Forearm INT / Saline Lock ] IV Catheter Type [Right Hand] INT / Saline Lock IV Catheter Type [Right Peripheral IV Forearm] IV Catheter Type [Left Hand] INT / Saline Lock Active Medications - Current Medications Current Medications: Generic Name Dose Route Start Last Admin Trade Name Freq PRN Reason Stop Dose Admin Acetaminophen 650 mg 07/12/20 01:05 07/27/20 01:57 Tylenol AR 650 mg Q4H PRN Administration Fever >101 Lipase/Protease/Amylase 1 each 07/22/20 07:[address] 10,500 Unit FEEDTUBE PRN PRN For Clogged Feeding Tube Haloperidol Lactate 5 mg 07/18/20 13:15 07/21/20 22:06 Haldol IM 5 mg Q6H PRN Administration Agitation Heparin Sodium (Porcine) 5,000 unit 07/12/20 10:00 08/08/20 04:51 Heparin SUB-Q 5,000 unit Q8H KEITH Administration Insulin Human Regular 0 unit 07/23/20 09:00 08/08/20 05:08 Humulin R SUB-Q Not Given Q6HR KEITH Protocol Lorazepam 2 mg 08/06/20 05:05 Ativan IV Q4H PRN Agitation Megestrol Acetate 400 mg 07/22/20 10:00 08/07/20 11:53 Megestrol PO 400 mg QDAY KEITH Administration Olanzapine 2.5 mg 07/25/20 22:00 08/07/20 22:00 Zyprexa PO 2.5 mg QHS KEITH Administration Ondansetron HCl 4 mg 07/12/20 01:06 Zofran IV Q8H PRN Nausea And Vomiting Simple Syrup 15 ml 07/22/20 07:44 Simple Syrup FEEDTUBE PRN PRN Hypoglycemia Simple Syrup 30 ml 07/22/20 07:44 Simple Syrup FEEDTUBE PRN PRN Hypoglycemia Sodium Bicarbonate 325 mg 07/22/20 07:44 Sodium Bicarbonate FEEDTUBE PRN PRN For Clogged Feeding Tube Valproic Acid 250 mg 07/25/20 22:00 08/07/20 22:00 Depakene Liq FEEDTUBE 250 mg BID KEITH Administration Nutrition/Malnutrition Assess - Dietary Evaluation Nutrition/Malnutrition Findings: Nutrition Notes Start: 07/12/20 11:40 Freq: Status: Active Protocol: Document 08/06/20 13:36 LM (Rec: 08/06/20 13:41 LM [id number]) Nutrition Notes Initial or Follow up Reassessment Other Pertinent Diagnosis C. diff (+), AMS, Rhabdomyolysis, dehydration, Hx of stroke Current Diet Osmolite 1.5 at 35ml/hr Labs/Tests Na 133 Cr 0.3 Pertinent Medications Reviewed Height 5 ft Weight 54.2 kg Chambers Body Weight (kg) 45.45 BMI 23.3 Weight Status Appropriate Subjective/Other Information Pt tolerating TF at goal. Will decrease flush for hyponatremia. Percent of energy/protein needs met: 100%/90% Burn Absent Trauma Absent GI Symptoms None Current % PO Negligible Minimum of two criteria No Energy Intake (severe) < or equal to 50% Estimated Energy Requirement > or equal to 5 days #1 Nutrition Diagnosis Inadequate oral intake Diagnosis Progress(for reassessment Continues documentation) Is patient on ventilator? No Is Patient Ambulatory and/or Out of Bed No REE-([facility]-confined to bed) 8577.408 Calculation Used for Recommendations [facility] Additional Notes Protein Needs 59-70g (1-1.2g/ kg) Fluid Needs: 1ml/kcal Nutrition Intervention Change Diet Order: TF Nutrition Support: Osmolite 1.5 at 35ml/hr. Flush 50ml q6h for hyponatremia Flush 100ml q4hr once resolved Kcal 1,260 Protein (gm) 53 Fluid (mL) 640 Goal #1 Meet at least 80% of kcal and protein needs Anticipated Discharge Needs: unable to determine at this time Follow-Up By: 08/09/20 Additional Comments F/U for TF, Na
[2020-08-07 16:34] LABS: INR 0.84 (0.87-1.13)
--- NOTE | 2020-08-07 17:11 | Gastroenterology Consultation ---
History of Present Illness - Reason for Consult Consult date: 08/07/20 PEG tube placement Requesting physician: GANESH VAN - History of Present Illness This is a 60 yo female admitted on 07/12/2020 from [facility] for AMS and poor PO intake. GI consulted for PEG placement. Patient nonverbal and unable to give history. Per chart review, patient reported to have schizoaffective disorder with hallucinations and confusions. Patient on admission noted to have rhabdomyolysis and multiple electrolyte imbalance. These have since resolved but patient remains in catatonic state, does not follow command and at risk for aspiration for swallowing. She has been receiving tube feeds via dobhoff, which has been pulled out by patient multiple times. psych has been consulted and recommends that patient is not a candidate for inpatient psych. Currently on zyprexa, haloperidol prn and ativan prn. Of note, patient also was treated for C diff with Po vancomycin and diarrhea s adilson resolved. Case management and social services specialist have been working with [facility] police to locate family but no family can be found. Patient was initially seen at [facility] ED in 06/2020 and discharged to [facility] inpatient psych facility. At the time of [facility] ED evaluation, patient was able to sign consent for herself. Medication list reviewed. Past History Past Medical History: stroke (PSYCHIATRY), other Past Surgical History: No surgical history Social history: no significant social history Family history: no significant family history Medications and Allergies Allergies Allergy/AdvReac Type Severity Reaction Status Date / Time Unable to Assess Allergy Unverified 07/11/20 21:47 Home Medications Medication Instructions Recorded Confirmed Last Taken Type No Known Home Medications [No 07/18/20 07/18/20 Unknown History Reported Home Medications] Active Meds: Active Medications Acetaminophen (Tylenol) 650 mg [place] Q4H PRN PRN Reason: Fever >101 Last Admin: 07/27/20 01:57 Dose: 650 mg Documented by: Lipase/Protease/Amylase (Negrito Sprague 10,500 Unit) 1 each FEEDTUBE PRN PRN PRN Reason: For Clogged Feeding Tube Haloperidol Lactate (Haldol) 5 mg IM Q6H PRN PRN Reason: Agitation Last Admin: 07/21/20 22:06 Dose: 5 mg Documented by: Heparin Sodium (Porcine) (Heparin) 5,000 unit SUB-Q Q8H [facility] Last Admin: 08/07/20 11:53 Dose: 5,000 unit Documented by: Sodium Chloride (Nacl 0.9% 1000 Ml) 1,000 mls @ 75 mls/hr IV DIRECT [facility] Stop: 08/08/20 03:04 Insulin Human Regular (Humulin R) 0 unit SUB-Q Q6HR [facility]; Protocol Last Admin: 08/07/20 13:24 Dose: Not Given Documented by: Lorazepam (Ativan) 2 mg IV Q4H PRN PRN Reason: Agitation Megestrol Acetate (Megestrol) 400 mg PO QDAY [facility] Last Admin: 08/07/20 11:53 Dose: 400 mg Documented by: Olanzapine (Zyprexa) 2.5 mg PO QHS [facility] Last Admin: 08/06/20 22:21 Dose: 2.5 mg Documented by: Ondansetron HCl (Zofran) 4 mg IV Q8H PRN PRN Reason: Nausea And Vomiting Simple Syrup (Simple Syrup) 15 ml FEEDTUBE PRN PRN PRN Reason: Hypoglycemia Simple Syrup (Simple Syrup) 30 ml FEEDTUBE PRN PRN PRN Reason: Hypoglycemia Sodium Bicarbonate (Sodium Bicarbonate) 325 mg FEEDTUBE PRN PRN PRN Reason: For Clogged Feeding Tube Valproic Acid (Depakene Liq) 250 mg FEEDTUBE BID [facility] Last Admin: 08/07/20 11:53 Dose: 250 mg Documented by: Review of Systems - Review of Systems ROS unobtainable: due to mental status Exam - Constitutional Vital Signs: Temp Pulse Resp BP Pulse Ox 98.3 F 97 H 18 114/63 95 08/07/20 12:05 08/07/20 12:05 08/07/20 12:05 08/07/20 12:05 08/07/20 12:05 General appearance: no acute distress - Respiratory Respiratory effort: normal - Cardiovascular Rhythm: regular Heart Sounds: Present: S1 & S2 - Gastrointestinal General gastrointestinal: Present: soft, non-tender, non-distended - Neurologic Neurological: other (nonverbal, opens eyes but unable to follow commands) - Labs CBC & Chem 7: 08/07/20 07:19 08/07/20 07:19 Lab Results: Laboratory Results - last 24 hr 08/06/20 08/07/20 08/07/20 17:20 00:39 05:36 WBC RBC Hgb Hct MCV MCH MCHC RDW Plt Count PT INR Sodium Potassium Chloride Carbon Dioxide Anion Gap BUN Creatinine Estimated GFR BUN/Creatinine Ratio Glucose POC Glucose 87 55 L 118 H Calcium 08/07/20 08/07/20 08/07/20 07:19 07:19 12:19 WBC 8.8 RBC 4.69 Hgb 15.2 H Hct 45.5 H MCV 97 MCH 33 H MCHC 33 RDW 14.4 Plt Count 663 H PT INR Sodium 136 L Potassium 4.7 Chloride 97.9 L Carbon Dioxide 27 Anion Gap 16 BUN 14 Creatinine 0.3 L Estimated GFR > 60 BUN/Creatinine Ratio 47 Glucose 123 H POC Glucose 92 Calcium 9.1 08/07/20 15:47 WBC RBC Hgb Hct MCV MCH MCHC RDW Plt Count PT 11.7 L INR 0.84 L Sodium Potassium Chloride Carbon Dioxide Anion Gap BUN Creatinine Estimated GFR BUN/Creatinine Ratio Glucose POC Glucose Calcium Assessment and Plan # AMS # Malnutrition - GI consulted for PEG placement as patient remains in catatonic state, aspiration risk for swallow. - C diff diarrhea treated with PO vancomycin and resolved. - unable to locate family. Rec - will need two doctor consent for EGD/PEG given no family can be located and patient not able to consent for herself and procedure medically necessary for safety given electrolyte imbalance, malnutrition, and risk for aspiration. - will tentatively plan for EGD/PEG on . - cont with dobhoff tube feeds in the meantime.
--- NOTE | 2020-08-07 17:12 | XRay Report ---
ABDOMEN, SINGLE VIEW INDICATION / CLINICAL INFORMATION: verify dobhoff for feeding. COMPARISON: 08/06/2020 FINDINGS: Feeding tube is present. The tip is projecting in the right upper quadrant of the abdomen and is most likely in the region of the pylorus. IMPRESSION: Satisfactory positioning of feeding tube. Signer Name: Mary Weller MD Signed: 08/07/2020 5:08 PM Workstation Name: [id number]
[2020-08-08] MEDS: INSULIN REGULAR, HUMAN 100 UNIT/ML 3ML VIAL SUB-Q SCH ×4 (00:19→17:13)
[2020-08-08] MEDS: HEPARIN 5,000 UNIT/1 ML VIAL SUB-Q SCH ×3 (04:51→17:39)
[2020-08-08] MEDS: VALPROIC ACID 250 MG/5 ML ORAL LIQD FEEDTUBE SCH ×2 (10:35→21:06)
[2020-08-08] MEDS: MEGESTROL 400 MG/10 ML ORAL LIQD PO SCH (10:35)
--- NOTE | 2020-08-08 14:07 | Progress Note ---
Assessment and Plan - Patient Problems (1) Schizoaffective disorder Current Visit: Yes Status: Chronic Plan to address problem: Patient admitted catatonic state and is nonverbal at this time following commands Psychiatric consult completed; does not recommend inpatient at this time Haldol as needed, Depakote, Zyprexa Supportive care (2) Metabolic encephalopathy Current Visit: Yes Status: Acute Plan to address problem: Multifactorial , schizoaffective disorder Patient came from [facility], psych evaluation noted Psych now recommended for outpt f/u Continue NG tube feedings (3) Hyponatremia Current Visit: Yes Status: Acute Plan to address problem: Admit sodium 142 07/31 134, slight hyponatremia at this time no intervention needed, 08/01 Na 136 however she has remained hyponatremic Hydration with free water flush; 50ml q6 hours while hyponatremic-> informed RN on 08/06 08/07 sodium 136 Trend BMP (4) Hypochloremia Current Visit: Yes Status: Acute Plan to address problem: 07/31 chloride 97, 08/02 chloride 97.9, 08/06 chloride 97.0, 08/07 chloride 97.0 Patient on tube feedings with FWF We will continue to monitor Trend BMP (5) DVT prophylaxis Current Visit: Yes Status: Acute Plan to address problem: SCDs to bilateral lower extremities while in bed Heparin subcu (6) Discharge planning issues Current Visit: Yes Status: Acute Plan to address problem: Patient's identity is not confirmed [facility] Department has been contacted to aid in identification however unsuccessful [facility] Department have been contacted Inpatient records requested from [facility] again on 08/02 Risk-management made aware of patient again on 08/02 Patient identification confirmed with [facility] Department Attempted to contact children, CM has an email address and an email was sent over the weekend however there is been no reply 08/07: 2 physician consent for PEG tube obtained and GI consulted for PEG tube placement Scheduled for PEG tube placement with GI on 08/09 History Interval history: 60-year-old female patient with schizoaffective disorder with active hallucinations and confusion presented from [place] for altered mental status and poor intake on 07/13. She was found to have rhabdomyolysis and electrolyte imbalances. She then developed C. difficile diarrhea and she has completed her regimen of p.o. vancomycin from 07/20-08/03. Patient remains in catatonic state does not follow any commands and is nonverbal. She had a Dobbhoff tube in place with tube feeds infusing. No acute events reported overnight. Patient was found in the [facility] Police Department records and her family has been contacted via email because we do not have a phone number over the weekend. No response has been given yet. Patient remains with a Dobbhoff tube in place. Psychiatry requested inpatient records from [facility]. Two physician consent for PEG tube placement obtained, GI consulted and will get PEG 08/09. No acute events noted overnight. 07/13; patient's CK levels trending down on 1678, continue IV hydration patient is more alert at times, hallucinating, Noncommunicative, severe hypokalemia, replace per protocol 07/14; potassium level significantly improved today to 3.2, replenish per protocol. CK levels trending down 828, continue IV hydration, monitor electrolytes 07/15; patient refused potassium yesterday today potassium levels again 2.7 We will add KCl to IV fluids, and IV K riders, monitor electrolytes. CK level 425. Refusing to eat confused noncommunicative. Possible inpatient psych admission when medically stable 07/16; rhabdomyolysis resolved, mild electrolyte imbalances, if corrected medically stable for inpatient psych placement 07/17: replete K and phosphate. repeat CBc BMP tomorrow. White count needs to be < 10 for inpt psych admission 07/18: cont to have mildly elevated white count, c/o loose stool. will check for C. def - start flagyl and cipro 07/19: White count normal today. change medications to Po. medically stable to go for inpt psych unit. 07/20; positive for C. def. patient not eating properly, refusing meds time to time. Psych now recommended outpt f/u. CM working on placement. Patient remains nonverbal, does not follow any commend and not giving any personal info. 07/21; K 2.0 today, cont to replete, follow BMP, patient remains nonverbal and not cooperative. refuses to eat and meds. cont d51/2NS. if condition doesnot improve will consider TF 07/22: Potassium level persistently remains low, magnesium 1.6 today. Will replete magnesium and potassium. Patient refusing meds and not eating at all per RN report. Totally noncooperative during the encounternot respond to any question. Keeps her eye closing and covering her face with her forearm. Will order for tube feeding and Dobbhoff tube. Continue to follow. We will also add Megace to boost appetite. 07/23: started on TF, follow BMP, change iv fluid to 1/2 NS. patient remains nonverbal 07/24; clinically unchanged, replete K, iv fluid and TF. reconsult psych as patient remains in catatonic phase 07/25: psych recommendation noted, continue tube feeding, continue to replete electrolytes as needed, follow BMP. I strongly believe her severe electrolytes derangement and encephalopathy related to her catatonia, poor oral intake other than any underlying medical conditions. There is no family contact in file, no home address available, patient appeared to be unfunded. diabetes territory manager working on placement. 07/26: psych recommendation noted, continue tube feeding, continue to replete electrolytes as needed, follow BMP. I strongly believe her severe electrolytes derangement and encephalopathy related to her catatonia, poor oral intake other than any underlying medical conditions. There is no family contact in file, no home address available, patient appeared to be unfunded. diabetes territory manager working on placement. 07/27; continue with tube feeding. There is no family contact in file, no home address available, patient appeared to be unfunded. Case management is following. 07/28; patient still on tube feeding, patient is noncommunicative. I believe her condition is related to her catatonia. Psych is following her. Currently her electrolytes are corrected. There is no family contact in file, no home address available, patient appeared to be unfunded. Case management is following. 07/29 patient is nonverbal, eyes open does not follow simple commands,, still having low-grade fever T-max 100 degrees,, lab results reviewed discussed with RN- still has loose stools, sample case porter notes reviewed, unable to contact family 07/30 no acute events overnight, diarrhea improved, stop IV fluids, disposition to be decided 07/31: co founder and chief strategy officer presented to the bedside to attempt to fingerprint the patient to identify her. However his machine was not working 08/01:' Per sample case porter note [facility] Police Department has been contacted to help in identifying the patient. On officer is to report to bedside and was instructed to call the sample case porter upon arrival. 08/02/2020 still has diarrhea 08/03/2020 diarrhea improving. Today is the last day of vancomycin 08/04/2020 patient has no diarrhea 08/05: computer forensic examiner RN reported patient had a seizure overnight, Ativan was ordered however was not administered because according to the dayshift RN he was reported that the patient "did not need the medication because she was not having a seizure at the moment". Patient remained hyponatremic and hypochloremic and after conversing with the nurse patient was not getting her prescribed dose FWF for hyponatremia which was corrected 08/06: Electrolyte imbalance discontinue, patient still catatonic 08/07: Electrolyte imbalances continue, to physician consent for PEG tube obtained and GI consulted 08/08: PEG scheduled for 08/09 Hospitalist Physical - Physical exam Narrative exam: General appearance: Present: no acute distress, other (Nonverbal, awake) - EENT Eyes: Present: PERRL - Neck Neck: Present: supple, normal ROM - Respiratory Respiratory effort: normal Respiratory: bilateral: CTA - Cardiovascular Rhythm: regular Heart Sounds: Present: S1 & S2. Absent: systolic murmur, diastolic murmur - Extremities Extremities: no ischemia, pulses intact, pulses symmetrical, No edema, normal temperature, normal color, Full ROM Peripheral Pulses: within normal limits - Abdominal General gastrointestinal: soft, non-tender, non-distended, normal bowel sounds - Integumentary Integumentary: Present: clear, warm, dry - Psychiatric Psychiatric: other (Patient is nonverbal, does not follow any commands however does withdraw to pain to all 4 extremities) - Neurologic Neurologic: moves all extremities (spontaneously) - Constitutional Vitals: Temp Pulse Resp BP Pulse Ox 99.0 F 90 20 93/63 97 08/08/20 11:28 08/08/20 11:28 08/08/20 11:28 08/08/20 11:28 08/08/20 11:28 General appearance: Present: no acute distress, well-nourished HEART Score - HEART Score Risk factors: 1-2 risk factors Troponin: Troponin T < 0.010 ng/mL (0.00-0.029) 07/11/20 21:17 Troponin: < normal limit - Critical Actions Critical Actions: 0-3 pts:0.9-1.7%risk of adverse cardiac event.Candidate for discharge Results - Labs CBC & Chem 7: 08/07/20 07:19 08/07/20 07:19 Labs: Laboratory Last Values WBC 8.8 K/mm3 (4.5-11.0) 08/07/20 07:19 RBC 4.69 M/mm3 (3.65-5.03) 08/07/20 07:19 Hgb 15.2 gm/dl (10.1-14.3) H 08/07/20 07:19 Hct 45.5 % (30.3-42.9) H 08/07/20 07:19 MCV 97 fl (79-97) 08/07/20 07:19 MCH 33 pg (28-32) H 08/07/20 07:19 MCHC 33 % (30-34) 08/07/20 07:19 RDW 14.4 % (13.2-15.2) 08/07/20 07:19 Plt Count 663 K/mm3 (140-440) H 08/07/20 07:19 Lymph % (Auto) 21.6 % (13.4-35.0) 07/26/20 07:30 [place] % (Auto) 6.2 % (0.0-7.3) 07/26/20 07:30 Eos % (Auto) 0.5 % (0.0-4.3) 07/26/20 07:30 Baso % (Auto) 0.3 % (0.0-1.8) 07/26/20 07:30 Lymph # (Auto) 2.0 K/mm3 (1.2-5.4) 07/26/20 07:30 [place] # (Auto) 0.6 K/mm3 (0.0-0.8) 07/26/20 07:30 Eos # (Auto) 0.1 K/mm3 (0.0-0.4) 07/26/20 07:30 Baso # (Auto) 0.0 K/mm3 (0.0-0.1) 07/26/20 07:30 Seg Neutrophils % 71.4 % (40.0-70.0) H 07/26/20 07:30 Seg Neutrophils # 6.8 K/mm3 (1.8-7.7) 07/26/20 07:30 PT 11.7 Sec. (12.2-14.9) L 08/07/20 15:47 INR 0.84 (0.87-1.13) L 08/07/20 15:47 Sodium 136 mmol/L (137-145) L 08/07/20 07:19 Potassium 4.7 mmol/L (3.6-5.0) 08/07/20 07:19 Chloride 97.9 mmol/L (98-107) L 08/07/20 07:19 Carbon Dioxide 27 mmol/L (22-30) 08/07/20 07:19 Anion Gap 16 mmol/L 08/07/20 07:19 BUN 14 mg/dL (7-17) 08/07/20 07:19 Creatinine 0.3 mg/dL (0.6-1.2) L 08/07/20 07:19 Estimated GFR > 60 ml/min 08/07/20 07:19 BUN/Creatinine Ratio 47 % 08/07/20 07:19 Glucose 123 mg/dL (65-100) H 08/07/20 07:19 POC Glucose 113 (70-105) H 08/08/20 11:42 Lactic Acid 1.50 mmol/L (0.7-2.0) 07/12/20 00:04 Phosphorus 3.10 mg/dL (2.5-4.5) 07/24/20 06:00 Magnesium 2.10 mg/dL (1.7-2.3) 07/24/20 06:00 Calcium 9.1 mg/dL (8.4-10.2) 08/07/20 07:19 Direct Bilirubin < 0.2 mg/dL (0-0.2) 07/13/20 09:33 Ammonia 28.0 umol/L (25-60) 07/11/20 21:17 Total Bilirubin 0.40 mg/dL (0.1-1.2) 08/06/20 08:59 Total Creatine Kinase 102 units/L (30-135) 07/17/20 05:21 CK-MB (CK-2) 9.2 ng/mL (0.0-4.0) H 07/12/20 15:13 AST 63 units/L (5-40) H 08/06/20 08:59 ALT 41 units/L (7-56) 08/06/20 08:59 CK-MB (CK-2) Rel Index 0.4 (0-4) 07/12/20 15:13 Alkaline Phosphatase 59 units/L (35-129) 08/06/20 08:59 Troponin T < 0.010 ng/mL (0.00-0.029) 07/11/20 21:17 Total Protein 6.6 g/dL (6.3-8.2) 08/06/20 08:59 Albumin 3.8 g/dL (3.9-5) L 08/06/20 08:59 Albumin/Globulin Ratio 1.4 % 08/06/20 08:59 Urine Color Yellow (Yellow) 07/11/20 Unknown Urine Turbidity Clear (Clear) 07/11/20 Unknown Urine pH 6.0 (5.0-7.0) 07/11/20 Unknown Ur Specific [place] 1.023 (1.003-1.030) 07/11/20 Unknown Urine Protein 30 mg/dl mg/dL (Negative) 07/11/20 Unknown Urine Glucose (UA) Neg mg/dL (Negative) 07/11/20 Unknown Urine Ketones Tr mg/dL (Negative) 07/11/20 Unknown Urine Blood Neg (Negative) 07/11/20 Unknown Urine Nitrite Neg (Negative) 07/11/20 Unknown Urine Bilirubin Neg (Negative) 07/11/20 Unknown Urine Urobilinogen 2.0 mg/dL (<2.0) 07/11/20 Unknown Ur Leukocyte Esterase Neg (Negative) 07/11/20 Unknown Urine WBC (Auto) 2.0 /HPF (0.0-6.0) 07/11/20 Unknown Urine RBC (Auto) 3.0 /HPF (0.0-6.0) 07/11/20 Unknown U Epithel Cells (Auto) 3.0 /HPF (0-13.0) 07/11/20 Unknown Urine Mucus 3+ /HPF 07/11/20 Unknown Salicylates < 0.3 mg/dL (2.8-20.0) L 07/11/20 21:17 Urine Opiates Screen Presumptive negative 07/11/20 Unknown Urine Methadone Screen Presumptive negative 07/11/20 Unknown Acetaminophen 5.0 ug/mL (10.0-30.0) L 07/11/20 21:17 Ur Barbiturates Screen Presumptive negative 07/11/20 Unknown Valproic Acid 7.7 ug/mL (50-100) L 07/19/20 08:12 Ur Phencyclidine Scrn Presumptive negative 07/11/20 Unknown Ur Amphetamines Screen Presumptive negative 07/11/20 Unknown U Benzodiazepines Scrn Presumptive negative 07/11/20 Unknown Urine Cocaine Screen Presumptive negative 07/11/20 Unknown U Marijuana (THC) Screen Presumptive negative 07/11/20 Unknown Drugs of Abuse Note Disclamer 07/11/20 Unknown C. difficile Tox (PCR) Positive (Negative) 07/19/20 18:51 Ledesma/IV: Voiding Method External Female Catheter IV Catheter Type [Right INT / Saline Lock Antecubital] IV Catheter Type [Left Forearm INT / Saline Lock ] IV Catheter Type [Right Hand] INT / Saline Lock IV Catheter Type [Right Peripheral IV Forearm] IV Catheter Type [Left Hand] INT / Saline Lock Active Medications - Current Medications Current Medications: Generic Name Dose Route Start Last Admin Trade Name Freq PRN Reason Stop Dose Admin Acetaminophen 650 mg 07/12/20 01:05 07/27/20 01:57 Tylenol MI 650 mg Q4H PRN Administration Fever >101 Lipase/Protease/Amylase 1 each 07/22/20 07:[address] 10,500 Unit FEEDTUBE PRN PRN For Clogged Feeding Tube Haloperidol Lactate 5 mg 07/18/20 13:15 07/21/20 22:06 Haldol IM 5 mg Q6H PRN Administration Agitation Heparin Sodium (Porcine) 5,000 unit 07/12/20 10:00 08/08/20 10:35 Heparin SUB-Q 5,000 unit Q8H KEITH Administration Insulin Human Regular 0 unit 07/23/20 09:00 08/08/20 05:08 Humulin R SUB-Q Not Given Q6HR KEITH Protocol Lorazepam 2 mg 08/06/20 05:05 Ativan IV Q4H PRN Agitation Megestrol Acetate 400 mg 07/22/20 10:00 08/08/20 10:35 Megestrol PO 400 mg QDAY KEITH Administration Olanzapine 2.5 mg 07/25/20 22:00 08/07/20 22:00 Zyprexa PO 2.5 mg QHS KEITH Administration Ondansetron HCl 4 mg 07/12/20 01:06 Zofran IV Q8H PRN Nausea And Vomiting Simple Syrup 15 ml 07/22/20 07:44 Simple Syrup FEEDTUBE PRN PRN Hypoglycemia Simple Syrup 30 ml 07/22/20 07:44 Simple Syrup FEEDTUBE PRN PRN Hypoglycemia Sodium Bicarbonate 325 mg 07/22/20 07:44 Sodium Bicarbonate FEEDTUBE PRN PRN For Clogged Feeding Tube Valproic Acid 250 mg 07/25/20 22:00 08/08/20 10:35 Depakene Liq FEEDTUBE 250 mg BID KEITH Administration Nutrition/Malnutrition Assess - Dietary Evaluation Nutrition/Malnutrition Findings: Nutrition Notes Start: 07/12/20 11:40 Freq: Status: Active Protocol: Document 08/06/20 13:36 LM (Rec: 08/06/20 13:41 LM [id number]) Nutrition Notes Initial or Follow up Reassessment Other Pertinent Diagnosis C. diff (+), AMS, Rhabdomyolysis, dehydration, Hx of stroke Current Diet Osmolite 1.5 at 35ml/hr Labs/Tests Na 133 Cr 0.3 Pertinent Medications Reviewed Height 5 ft Weight 54.2 kg Jenner Body Weight (kg) 45.45 BMI 23.3 Weight Status Appropriate Subjective/Other Information Pt tolerating TF at goal. Will decrease flush for hyponatremia. Percent of energy/protein needs met: 100%/90% Burn Absent Trauma Absent GI Symptoms None Current % PO Negligible Minimum of two criteria No Energy Intake (severe) < or equal to 50% Estimated Energy Requirement > or equal to 5 days #1 Nutrition Diagnosis Inadequate oral intake Diagnosis Progress(for reassessment Continues documentation) Is patient on ventilator? No Is Patient Ambulatory and/or Out of Bed No REE-([facility]-confined to bed) 1239.408 Calculation Used for Recommendations [facility] Additional Notes Protein Needs 59-70g (1-1.2g/ kg) Fluid Needs: 1ml/kcal Nutrition Intervention Change Diet Order: TF Nutrition Support: Osmolite 1.5 at 35ml/hr. Flush 50ml q6h for hyponatremia Flush 100ml q4hr once resolved Kcal 1,260 Protein (gm) 53 Fluid (mL) 640 Goal #1 Meet at least 80% of kcal and protein needs Anticipated Discharge Needs: unable to determine at this time Follow-Up By: 08/09/20 Additional Comments F/U for TF, Na
[2020-08-09] MEDS: INSULIN REGULAR, HUMAN 100 UNIT/ML 3ML VIAL SUB-Q SCH ×4 (00:03→17:53)
[2020-08-09] MEDS: HEPARIN 5,000 UNIT/1 ML VIAL SUB-Q SCH ×4 (02:42→17:56)
[2020-08-09 07:36] LABS: Hematocrit 38.9 % (30.3-42.9); Mean Corpuscular HGB Conc 36 % (30-34); Mean Corpuscular Volume 96 fl (79-97); Platelet Count 539 K/mm3 (140-440); Red Blood Count 4.06 M/mm3 (3.65-5.03); Red Cell Distribution Width 14.6 % (13.2-15.2)
[2020-08-09 07:56] LABS: Blood Urea Nitrogen 14 mg/dL (7-17); Hemolysis Index 4
[2020-08-09 08:09] LABS: BUN/Creatinine Ratio 35
--- NOTE | 2020-08-09 08:25 | Progress Note ---
Assessment and Plan Assessment and plan: -- C. def colitis changed abx to vancomycin po for 2 weeks total - 08/03/20 end date --Severe hypokalemia: Follow electrolytes, replete and monitor BMP as needed --Hypomagnesemia, replete and monitor level -- Rhabdomyolysis-resolved Preserved renal function, cont IV hydration Input output monitoring, monitor CK levels CK levels trending down [phone] --Schizo affective disorder; Psych evaluation and recommendations noted and appreciated. patient refusing meds and oral diet Management per psych, Recommend outpt f/u --Acute metabolic encephalopathy /altered mental state Multifactorial , schizoaffective disorder Patient came from [place], psych evaluation noted Psych now recommended for outpt f/u --Severe dehydration; improved continue IV hydration Input output monitoring Encourage plenty oral fluids but she is not taking any --transaminitis:- Probably secondary to rhabdo, Trended down --Poor oral intake with electrolyte imbalance Will add Megace and start on tube feeding --DVT prophylaxis; Heparin subcu Closely monitor the patient and adjust management as needed Plan of care reviewed with the patient's nurse Psych recommended outpt f/u Brief history: 60-year-old female patient was sent from [facility] with altered level of consciousness and poor oral intake. Patient has schizoaffective disorder with active hallucinations and confusion, Patient was noted to have rhabdomyolysis and multiple electrolyte imbalances, Rhabdomyolysis is resolved, mild hypokalemia and hypo-phosphatemia - being corrected. Then she developed diarrhea - now positive for C. def, on vancomycin po. Patient remained in catatonic state, does not follow any command, does not want to eat and refuse meds. I strongly believe her electrolytes derangement and encephalopathy related to her catatonia, poor oral intake other than any underlying medical conditions. 07/13; patient's CK levels trending down on 1678, continue IV hydration patient is more alert at times, hallucinating Noncommunicative, severe hypokalemia, replace per protocol 07/14; potassium level significantly improved today to 3.2, replenish per protocol. CK levels trending down 828, continue IV hydration, monitor electrolytes 07/15; patient refused potassium yesterday today potassium levels again 2.7 We will add KCl to IV fluids, and IV K riders, monitor electrolytes. CK level 425. Refusing to eat confused noncommunicative. Possible inpatient psych admission when medically stable 07/16; rhabdomyolysis resolved, mild electrolyte imbalances, if corrected medically stable for inpatient psych placement 07/17: replete K and phosphate. repeat CBc BMP tomorrow. White count needs to be < 10 for inpt psych admission 07/18: cont to have mildly elevated white count, c/o loose stool. will check for C. def - start flagyl and cipro 07/19: White count normal today. change medications to Po. medically stable to go for inpt psych unit. 07/20; positive for C. def. patient not eating properly, refusing meds time to time. Psych now recommended outpt f/u. CM working on placement. Patient remains nonverbal, does not follow any commend and not giving any personal info. 07/21; K 2.0 today, cont to replete, follow BMP, patient remains nonverbal and not cooperative. refuses to eat and meds. cont d51/2NS. if condition doesnot improve will consider TF 07/22: Potassium level persistently remains low, magnesium 1.6 today. Will replete magnesium and potassium. Patient refusing meds and not eating at all per RN report. Totally noncooperative during the encounternot respond to any question. Keeps her eye closing and covering her face with her forearm. Will order for tube feeding and Dobbhoff tube. Continue to follow. We will also add Megace to boost appetite. 07/23: started on TF, follow BMP, change iv fluid to 1/2 NS. patient remains nonverbal 07/24; clinically unchanged, replete K, iv fluid and TF. reconsult psych as patient remains in catatonic phase 07/25: psych recommendation noted, continue tube feeding, continue to replete electrolytes as needed, follow BMP. I strongly believe her severe electrolytes derangement and encephalopathy related to her catatonia, poor oral intake other than any underlying medical conditions. There is no family contact in file, no home address available, patient appeared to be unfunded. pre owned sales manager working on placement. 07/26: psych recommendation noted, continue tube feeding, continue to replete electrolytes as needed, follow BMP. I strongly believe her severe electrolytes derangement and encephalopathy related to her catatonia, poor oral intake other than any underlying medical conditions. There is no family contact in file, no home address available, patient appeared to be unfunded. pre owned sales manager working on placement. 07/27; continue with tube feeding. There is no family contact in file, no home a ddress available, patient appeared to be unfunded. Case management is following. 07/28; patient still on tube feeding, patient is noncommunicative. I believe her condition is related to her catatonia. Psych is following her. Currently her electrolytes are corrected. There is no family contact in file, no home address available, patient appeared to be unfunded. Case management is following. 08/09; patient is still on tube feeding, patient is noncommunicative. Patient will have PEG tube placement today. Case management is following the patient. History Interval history: Patient was seen and evaluated this morning Patient is noncommunicative, altered On NG tube feeding Hospitalist Physical - Physical exam Narrative exam: Patient is noncommunicative, NG tube in place The patient appeared well nourished and normally developed. Vital signs as documented. Head exam is unremarkable. No scleral icterus . Neck is without jugular venous distension, thyromegaly, or carotid bruits. Lungs are clear to auscultation. Cardiac exam reveals regular rate and Rhythm. Abdominal exam reveals normal bowel sounds, nontender, no organomegaly. Extremities are nonedematous and both femoral and pedal pulses are normal. ACOUSTIC INTELLIGENCE SPECIALIST: Patient is noncommunicative. - Constitutional Vitals: Temp Pulse Resp BP Pulse Ox 98.0 F 105 H 22 122/79 96 08/08/20 22:10 08/08/20 22:10 08/08/20 22:10 08/08/20 22:10 08/08/20 22:10 General appearance: Present: no acute distress, well-nourished HEART Score - HEART Score Risk factors: 1-2 risk factors Troponin: Troponin T < 0.010 ng/mL (0.00-0.029) 07/11/20 21:17 Troponin: < normal limit - Critical Actions Critical Actions: 0-3 pts:0.9-1.7%risk of adverse cardiac event.Candidate for discharge Results - Labs CBC & Chem 7: 08/09/20 07:05 08/09/20 07:05 Labs: Laboratory Last Values WBC 10.9 K/mm3 (4.5-11.0) 08/09/20 07:05 RBC 4.06 M/mm3 (3.65-5.03) 08/09/20 07:05 Hgb 14.0 gm/dl (10.1-14.3) 08/09/20 07:05 Hct 38.9 % (30.3-42.9) D 08/09/20 07:05 MCV 96 fl (79-97) 08/09/20 07:05 MCH 34 pg (28-32) H 08/09/20 07:05 MCHC 36 % (30-34) H 08/09/20 07:05 RDW 14.6 % (13.2-15.2) 08/09/20 07:05 Plt Count 539 K/mm3 (140-440) H 08/09/20 07:05 Lymph % (Auto) 21.6 % (13.4-35.0) 07/26/20 07:30 [place] % (Auto) 6.2 % (0.0-7.3) 07/26/20 07:30 Eos % (Auto) 0.5 % (0.0-4.3) 07/26/20 07:30 Baso % (Auto) 0.3 % (0.0-1.8) 07/26/20 07:30 Lymph # (Auto) 2.0 K/mm3 (1.2-5.4) 07/26/20 07:30 [place]y # (Auto) 0.6 K/mm3 (0.0-0.8) 07/26/20 07:30 Eos # (Auto) 0.1 K/mm3 (0.0-0.4) 07/26/20 07:30 Baso # (Auto) 0.0 K/mm3 (0.0-0.1) 07/26/20 07:30 Seg Neutrophils % 71.4 % (40.0-70.0) H 07/26/20 07:30 Seg Neutrophils # 6.8 K/mm3 (1.8-7.7) 07/26/20 07:30 PT 11.7 Sec. (12.2-14.9) L 08/07/20 15:47 INR 0.84 (0.87-1.13) L 08/07/20 15:47 Sodium 135 mmol/L (137-145) L 08/09/20 07:05 Potassium 5.2 mmol/L (3.6-5.0) H 08/09/20 07:05 Chloride 98.0 mmol/L (98-107) 08/09/20 07:05 Carbon Dioxide 27 mmol/L (22-30) 08/07/20 07:19 Anion Gap 16 mmol/L 08/07/20 07:19 BUN 14 mg/dL (7-17) 08/09/20 07:05 Creatinine 0.4 mg/dL (0.6-1.2) L 08/09/20 07:05 Estimated GFR > 60 ml/min 08/09/20 07:05 BUN/Creatinine Ratio 35 % 08/09/20 07:05 Glucose 98 mg/dL (65-100) 08/09/20 07:05 POC Glucose 91 (70-105) 08/09/20 07:19 Lactic Acid 1.50 mmol/L (0.7-2.0) 07/12/20 00:04 Phosphorus 3.10 mg/dL (2.5-4.5) 07/24/20 06:00 Magnesium 2.10 mg/dL (1.7-2.3) 07/24/20 06:00 Calcium 9.0 mg/dL (8.4-10.2) 08/09/20 07:05 Direct Bilirubin < 0.2 mg/dL (0-0.2) 07/13/20 09:33 Ammonia 28.0 umol/L (25-60) 07/11/20 21:17 Total Bilirubin 0.40 mg/dL (0.1-1.2) 08/06/20 08:59 Total Creatine Kinase 102 units/L (30-135) 07/17/20 05:21 CK-MB (CK-2) 9.2 ng/mL (0.0-4.0) H 07/12/20 15:13 AST 63 units/L (5-40) H 08/06/20 08:59 ALT 41 units/L (7-56) 08/06/20 08:59 CK-MB (CK-2) Rel Index 0.4 (0-4) 07/12/20 15:13 Alkaline Phosphatase 59 units/L (35-129) 08/06/20 08:59 Troponin T < 0.010 ng/mL (0.00-0.029) 07/11/20 21:17 Total Protein 6.6 g/dL (6.3-8.2) 08/06/20 08:59 Albumin 3.8 g/dL (3.9-5) L 08/06/20 08:59 Albumin/Globulin Ratio 1.4 % 08/06/20 08:59 Urine Color Yellow (Yellow) 07/11/20 Unknown Urine Turbidity Clear (Clear) 07/11/20 Unknown Urine pH 6.0 (5.0-7.0) 07/11/20 Unknown Ur Specific [place] 1.023 (1.003-1.030) 07/11/20 Unknown Urine Protein 30 mg/dl mg/dL (Negative) 07/11/20 Unknown Urine Glucose (UA) Neg mg/dL (Negative) 07/11/20 Unknown Urine Ketones Tr mg/dL (Negative) 07/11/20 Unknown Urine Blood Neg (Negative) 07/11/20 Unknown Urine Nitrite Neg (Negative) 07/11/20 Unknown Urine Bilirubin Neg (Negative) 07/11/20 Unknown Urine Urobilinogen 2.0 mg/dL (<2.0) 07/11/20 Unknown Ur Leukocyte Esterase Neg (Negative) 07/11/20 Unknown Urine WBC (Auto) 2.0 /HPF (0.0-6.0) 07/11/20 Unknown Urine RBC (Auto) 3.0 /HPF (0.0-6.0) 07/11/20 Unknown U Epithel Cells (Auto) 3.0 /HPF (0-13.0) 07/11/20 Unknown Urine Mucus 3+ /HPF 07/11/20 Unknown Salicylates < 0.3 mg/dL (2.8-20.0) L 07/11/20 21:17 Urine Opiates Screen Presumptive negative 07/11/20 Unknown Urine Methadone Screen Presumptive negative 07/11/20 Unknown Acetaminophen 5.0 ug/mL (10.0-30.0) L 07/11/20 21:17 Ur Barbiturates Screen Presumptive negative 07/11/20 Unknown Valproic Acid 7.7 ug/mL (50-100) L 07/19/20 08:12 Ur Phencyclidine Scrn Presumptive negative 07/11/20 Unknown Ur Amphetamines Screen Presumptive negative 07/11/20 Unknown U Benzodiazepines Scrn Presumptive negative 07/11/20 Unknown Urine Cocaine Screen Presumptive negative 07/11/20 Unknown U Marijuana (THC) Screen Presumptive negative 07/11/20 Unknown Drugs of Abuse Note Disclamer 07/11/20 Unknown C. difficile Tox (PCR) Positive (Negative) 07/19/20 18:51 Ledesma/IV: Voiding Method External Female Catheter IV Catheter Type [Right INT / Saline Lock Antecubital] IV Catheter Type [Left Forearm INT / Saline Lock ] IV Catheter Type [Right Hand] INT / Saline Lock IV Catheter Type [Right Peripheral IV Forearm] IV Catheter Type [Left Hand] INT / Saline Lock Active Medications - Current Medications Current Medications: Generic Name Dose Route Start Last Admin Trade Name Freq PRN Reason Stop Dose Admin Acetaminophen 650 mg 07/12/20 01:05 07/27/20 01:57 Tylenol HI 650 mg Q4H PRN Administration Fever >101 Lipase/Protease/Amylase 1 each 07/22/20 07:[address] 10,500 Unit FEEDTUBE PRN PRN For Clogged Feeding Tube Haloperidol Lactate 5 mg 07/18/20 13:15 07/21/20 22:06 Haldol IM 5 mg Q6H PRN Administration Agitation Heparin Sodium (Porcine) 5,000 unit 07/12/20 10:00 08/09/20 02:42 Heparin SUB-Q 5,000 unit Q8H KEITH Administration Insulin Human Regular 0 unit 07/23/20 09:00 08/09/20 07:08 Humulin R SUB-Q Not Given Q6HR KEITH Protocol Lorazepam 2 mg 08/06/20 05:05 Ativan IV Q4H PRN Agitation Megestrol Acetate 400 mg 07/22/20 10:00 08/08/20 10:35 Megestrol PO 400 mg QDAY KEITH Administration Olanzapine 2.5 mg 07/25/20 22:00 08/08/20 21:06 Zyprexa PO 2.5 mg QHS KEITH Administration Ondansetron HCl 4 mg 07/12/20 01:06 Zofran IV Q8H PRN Nausea And Vomiting Simple Syrup 15 ml 07/22/20 07:44 Simple Syrup FEEDTUBE PRN PRN Hypoglycemia Simple Syrup 30 ml 07/22/20 07:44 Simple Syrup FEEDTUBE PRN PRN Hypoglycemia Sodium Bicarbonate 325 mg 07/22/20 07:44 Sodium Bicarbonate FEEDTUBE PRN PRN For Clogged Feeding Tube Valproic Acid 250 mg 07/25/20 22:00 08/08/20 21:06 Depakene Liq FEEDTUBE 250 mg BID KEITH Administration Nutrition/Malnutrition Assess - Dietary Evaluation Nutrition/Malnutrition Findings: Nutrition Notes Start: 07/12/20 11:40 Freq: Status: Active Protocol: Document 08/06/20 13:36 LM (Rec: 08/06/20 13:41 LM [id number]) Nutrition Notes Initial or Follow up Reassessment Other Pertinent Diagnosis C. diff (+), AMS, Rhabdomyolysis, dehydration, Hx of stroke Current Diet Osmolite 1.5 at 35ml/hr Labs/Tests Na 133 Cr 0.3 Pertinent Medications Reviewed Height 5 ft Weight 54.2 kg [place] Body Weight (kg) 45.45 BMI 23.3 Weight Status Appropriate Subjective/Other Information Pt tolerating TF at goal. Will decrease flush for hyponatremia. Percent of energy/protein needs met: 100%/90% Burn Absent Trauma Absent GI Symptoms None Current % PO Negligible Minimum of two criteria No Energy Intake (severe) < or equal to 50% Estimated Energy Requirement > or equal to 5 days #1 Nutrition Diagnosis Inadequate oral intake Diagnosis Progress(for reassessment Continues documentation) Is patient on ventilator? No Is Patient Ambulatory and/or Out of Bed No REE-([facility]-confined to bed) [phone] Calculation Used for Recommendations [facility] Additional Notes Protein Needs 59-70g (1-1.2g/ kg) Fluid Needs: 1ml/kcal Nutrition Intervention Change Diet Order: TF Nutrition Support: Osmolite 1.5 at 35ml/hr. Flush 50ml q6h for hyponatremia Flush 100ml q4hr once resolved Kcal 1,260 Protein (gm) 53 Fluid (mL) 640 Goal #1 Meet at least 80% of kcal and protein needs Anticipated Discharge Needs: unable to determine at this time Follow-Up By: 08/09/20 Additional Comments F/U for TF, Na
[2020-08-09] MEDS: VALPROIC ACID 250 MG/5 ML ORAL LIQD FEEDTUBE SCH ×2 (09:13→22:19)
[2020-08-09] MEDS: MEGESTROL 400 MG/10 ML ORAL LIQD PO SCH (09:13)
[2020-08-09] MEDS ORDERED: SODIUM CHLORIDE 0.9% 1000 ML 1,000 ML ONE (12:47)
[2020-08-09] MEDS ORDERED: WATER FOR IRRIG STERILE 250 ML BOTTLE IR ONE (12:48)
[2020-08-09] MEDS ORDERED: ceFAZolin/Water 2 GM/20 ML 2 GM/20 ML SYRINGE IV ONE (12:51)
--- NOTE | 2020-08-09 12:58 | Anesthesia Day of Surgery ---
Anesthesia Day of Surgery - Day of Surgery Patient Examined: Yes Patient H&P Reviewed: Yes Patient is NPO: Yes
--- NOTE | 2020-08-09 12:58 | Anesthesia Consultation ---
Anesthesia Consult and Med Hx Date of service: 08/09/20 - Airway Anesthetic Teeth Evaluation: Good ROM Head & Neck: Inadequate Mental/Hyoid Distance: Adequate Mallampati Class: Class III Intubation Access Assessment: Possibly Difficult - Pulmonary Exam CTA: Yes - Cardiac Exam Cardiac Exam: RRR - Pre-Operative Health Status ASA Pre-Surgery Classification: ASA3 Proposed Anesthetic Plan: MAC - Pulmonary Hx Asthma: No COPD: No Hx Pneumonia: No - Central Nervous System Hx Neuromuscular Disorder: Yes CVA: Yes Hx Psychiatric Problems: Yes - Endocrine Hx End Stage Renal Disease: No - Additional Comments Anesthesia Medical History Comments: patient reported to have schizoaffective disorder with hallucinations and confusions. Patient on admission noted to have rhabdomyolysis and multiple electrolyte imbalance. These have since resolved but patient remains in catatonic state, does not follow command
[2020-08-09] MEDS ORDERED: ceFAZolin/Water 2 GM/20 ML 2 GM/20 ML SYRINGE IV NR (13:00)
[2020-08-09] MEDS ORDERED: SODIUM CHLORIDE 0.9% 1000 ML 1,000 ML IV SCH (13:00)
[2020-08-09] MEDS ORDERED: propofoL 200 MG/20 ML VIAL IV ONE (14:31)
[2020-08-09] MEDS ORDERED: LIDOCAINE MPF (2%) 20 MG/1 ML VIAL 5 ML ONE (14:32)
--- NOTE | 2020-08-09 15:02 | Operative Report ---
Operative Report Operative Report: Date of procedure:08/09/2020 Pre procedure diagnosis: Inability to swallow Post procedure diagnosis: same Procedure: Esophagogastroduodenoscopy with percutaneous endoscopic gastrostomy Endoscopist: Jaime Trevino MD (Jenny) Medications: Per anesthesia- see separate records for details./ancef 2 g given Complications: none Estimated blood loss: None After careful discussion of the nature and purpose of the procedure, details of the technique, risks, benefits and alternatives consent was obtained from patient's family. The patient was placed in the left lateral decubitus position and medicated by anesthesia- see separate records for details. The tip of the olympus video upper scope was passed per orum under direct view through the mouth and into the esophagus, stomach and duodenum. The scope was advanced to thesecondportion of the duodenum without difficulty. The second portion of the duodenumwasnormal. The bulb revealed normal mucosa. The scope was withdrawn back into the stomach and the stomach gently insufflated with air. The antrumand body showed mild portal hypertensive gastropathy changes. The scope was then retroflexed and partially withdrawn to inspect the proximal stomach. The cardia and fundus were normal. The stomach was insufflated and a suitable gastrostomy site selected by transillumination and percutaneous compression demonstrating good opposition of the stomach and abdominal wall. The abdomen was prepped and draped in sterile fashion and 1% lidocaine instilled at the optimal site. A small incision was made and the tissue spread with sterile hemostats. The needle and catheter were inserted percutaneously into the stomach without difficulty under direct view. The needle was withdrawn followed by insertion of the guidewire through the catheter. The guidewire was grasped by the snare and positioned by withdrawal of the scope. A [employer] 20 gauge gastrostomy tube was pulled into place from the abdominal side of the wire to a snug fitat 3 cm on the skin. The external bumper was applied and the site again dressed in sterile fashion. The scope was then withdrawn in the forward view. The EG junction was at 40 cm. The esophagus revealed normal mucosa throughout without any obvious esophageal varices . The procedure was well tolerated and the patient was observed in the GI recovery unit. Impression: Mild portal hypertensive gastropathy. s/p percutaneous endoscopic gastrostomy. Plan Can start tube feeds in 4 hours Keep head of bed elevated Aspiration precautions Jaime Davidny) MD [facility]
--- NOTE | 2020-08-09 15:36 | Progress Note ---
Assessment and Plan - Patient Problems (1) Hyperkalemia Current Visit: Yes Status: Acute Plan to address problem: 08/09 potassium 5.2 MN Kayexalate Trend BMP (2) Schizoaffective disorder Current Visit: Yes Status: Chronic Plan to address problem: Patient admitted catatonic state and is nonverbal at this time following commands Psychiatric consult completed; does not recommend inpatient at this time Haldol as needed, Depakote, Zyprexa Supportive care (3) Metabolic encephalopathy Current Visit: Yes Status: Acute Plan to address problem: Multifactorial , schizoaffective disorder Patient came from [place], psych evaluation noted Psych now recommended for outpt f/u Continue NG tube feedings (4) Hyponatremia Current Visit: Yes Status: Acute Plan to address problem: Admit sodium 142 07/31 134, slight hyponatremia at this time no intervention needed, 08/01 Na 136 however she has remained hyponatremic Hydration with free water flush; 50ml q6 hours while hyponatremic-> informed RN on 08/06 08/07 sodium 136 08/09 sodium 135 Trend BMP (5) Hypochloremia Current Visit: Yes Status: Resolved Plan to address problem: 07/31 chloride 97, 08/02 chloride 97.9, 08/06 chloride 97.0, 08/07 chloride 97.0, 08/09 chloride 98 Patient on tube feedings with [facility] We will continue to monitor Trend BMP (6) DVT prophylaxis Current Visit: Yes Status: Acute Plan to address problem: SCDs to bilateral lower extremities while in bed Heparin subcu (7) Discharge planning issues Current Visit: Yes Status: Acute Plan to address problem: Patient's identity is not confirmed [facility] has been contacted to aid in identification however unsuccessful [facility] have been contacted Inpatient records requested from [facility] again on 08/02 Risk-management made aware of patient again on 08/02 Patient identification confirmed with [facility] Attempted to contact children, CM has an email address and an email was sent over the weekend however there is been no reply 08/07: 2 physician consent for PEG tube obtained and GI consulted for PEG tube placement 08/09: PEG tube placed, resume tube feeds within 4 hours History Interval history: 60-year-old female patient with schizoaffective disorder with active hallucinations and confusion presented from [place] for altered mental status and poor intake on 07/13. She was found to have rhabdomyolysis and electrolyte imbalances. She then developed C. difficile diarrhea and she has completed her regimen of p.o. vancomycin from 07/20-08/03. Patient remains in catatonic state does not follow any commands and is nonverbal. She had a Dobbhoff tube in place with tube feeds infusing. No acute events reported overnight. Patient was found in the [facility] records and her family has been contacted via email because we do not have a phone number over the weekend. No response has been given yet. Today she is s/p PEG tube placement with GI and tube feedings are resumed within 4 hours. She is hypokalemic with a potassium of 5.2 and MN Kayexalate has been ordered. We will recheck BMP in the a.m. 07/13; patient's CK levels trending down on 1678, continue IV hydration patient is more alert at times, hallucinating, Noncommunicative, severe hypokalemia, replace per protocol 07/14; potassium level significantly improved today to 3.2, replenish per protocol. CK levels trending down 828, continue IV hydration, monitor electrolytes 07/15; patient refused potassium yesterday today potassium levels again 2.7 We will add KCl to IV fluids, and IV K riders, monitor electrolytes. CK level 425. Refusing to eat confused noncommunicative. Possible inpatient psych admiss ion when medically stable 07/16; rhabdomyolysis resolved, mild electrolyte imbalances, if corrected m edically stable for inpatient psych placement 07/17: replete K and phosphate. repeat CBc BMP tomorrow. White count needs to be < 10 for inpt psych admission 07/18: cont to have mildly elevated white count, c/o loose stool. will check for C. def - start flagyl and cipro 07/19: White count normal today. change medications to Po. medically stable to go for inpt psych unit. 07/20; positive for C. def. patient not eating properly, refusing meds time to time. Psych now recommended outpt f/u. CM working on placement. Patient remains nonverbal, does not follow any commend and not giving any personal info. 07/21; K 2.0 today, cont to replete, follow BMP, patient remains nonverbal and not cooperative. refuses to eat and meds. cont d51/2NS. if condition doesnot improve will consider TF 07/22: Potassium level persistently remains low, magnesium 1.6 today. Will replete magnesium and potassium. Patient refusing meds and not eating at all per RN report. Totally noncooperative during the encounternot respond to any question. Keeps her eye closing and covering her face with her forearm. Will order for tube feeding and Dobbhoff tube. Continue to follow. We will also add Megace to boost appetite. 07/23: started on TF, follow BMP, change iv fluid to 1/2 NS. patient remains nonverbal 07/24; clinically unchanged, replete K, iv fluid and TF. reconsult psych as patient remains in catatonic phase 07/25: psych recommendation noted, continue tube feeding, continue to replete electrolytes as needed, follow BMP. I strongly believe her severe electrolytes derangement and encephalopathy related to her catatonia, poor oral intake other than any underlying medical conditions. There is no family contact in file, no home address available, patient appeared to be unfunded. performance manager working on placement. 07/26: psych recommendation noted, continue tube feeding, continue to replete electrolytes as needed, follow BMP. I strongly believe her severe electrolytes derangement and encephalopathy related to her catatonia, poor oral intake other than any underlying medical conditions. There is no family contact in file, no home address available, patient appeared to be unfunded. performance manager working on placement. 07/27; continue with tube feeding. There is no family contact in file, no home address available, patient appeared to be unfunded. Case management is following. 07/28; patient still on tube feeding, patient is noncommunicative. I believe her condition is related to her catatonia. Psych is following her. Currently her electrolytes are corrected. There is no family contact in file, no home address available, patient appeared to be unfunded. Case management is following. 07/29 patient is nonverbal, eyes open does not follow simple commands,, still having low-grade fever T-max 100 degrees,, lab results reviewed discussed with RN- still has loose stools, outpatient case manager notes reviewed, unable to contact family 07/30 no acute events overnight, diarrhea improved, stop IV fluids, disposition to be decided 07/31: chief analytics officer presented to the bedside to attempt to fingerprint the patient to identify her. However his machine was not working 08/01:' Per outpatient case manager note [facility] has been contacted to help in identifying the patient. On officer is to report to bedside and was instructed to call the outpatient case manager upon arrival. 08/02/2020 still has diarrhea 08/03/2020 diarrhea improving. Today is the last day of vancomycin 08/04/2020 patient has no diarrhea 08/05: foam charger RN reported patient had a seizure overnight, Ativan was ordered however was not administered because according to the dayshift RN he was reported that the patient "did not need the medication because she was not having a seizure at the moment". Patient remained hyponatremic and hypochloremic and after conversing with the nurse patient was not getting her prescribed dose FWF for hyponatremia which was corrected 08/06: Electrolyte imbalance discontinue, patient still catatonic 08/07: Electrolyte imbalances continue, to physician consent for PEG tube obtained and GI consulted 08/08: PEG scheduled for 08/09 Hospitalist Physical - Physical exam Narrative exam: General appearance: Present: no acute distress, other (Nonverbal, awake) - EENT Eyes: Present: PERRL - Neck Neck: Present: supple, normal ROM - Respiratory Respiratory effort: normal Respiratory: bilateral: CTA - Cardiovascular Rhythm: regular Heart Sounds: Present: S1 & S2. Absent: systolic murmur, diastolic murmur - Extremities Extremities: no ischemia, pulses intact, pulses symmetrical, No edema, normal temperature, normal color, Full ROM Peripheral Pulses: within normal limits - Abdominal General gastrointestinal: soft, non-tender, non-distended, normal bowel sounds - Integumentary Integumentary: Present: clear, warm, dry - Psychiatric Psychiatric: other (Patient is nonverbal, does not follow any commands however does withdraw to pain to all 4 extremities) - Neurologic Neurologic: moves all extremities (spontaneously) - Constitutional Vitals: Temp Pulse Resp BP Pulse Ox 97.6 F 86 12 141/84 97 08/09/20 12:40 08/09/20 12:40 08/09/20 12:40 08/09/20 12:40 08/09/20 12:40 General appearance: Present: no acute distress, well-nourished HEART Score - HEART Score Risk factors: 1-2 risk factors Troponin: Troponin T < 0.010 ng/mL (0.00-0.029) 07/11/20 21:17 Troponin: < normal limit - Critical Actions Critical Actions: 0-3 pts:0.9-1.7%risk of adverse cardiac event.Candidate for discharge Results - Labs CBC & Chem 7: 08/09/20 07:05 08/09/20 07:05 Labs: Laboratory Last Values WBC 10.9 K/mm3 (4.5-11.0) 08/09/20 07:05 RBC 4.06 M/mm3 (3.65-5.03) 08/09/20 07:05 Hgb 14.0 gm/dl (10.1-14.3) 08/09/20 07:05 Hct 38.9 % (30.3-42.9) D 08/09/20 07:05 MCV 96 fl (79-97) 08/09/20 07:05 MCH 34 pg (28-32) H 08/09/20 07:05 MCHC 36 % (30-34) H 08/09/20 07:05 RDW 14.6 % (13.2-15.2) 08/09/20 07:05 Plt Count 539 K/mm3 (140-440) H 08/09/20 07:05 Lymph % (Auto) 21.6 % (13.4-35.0) 07/26/20 07:30 Morton % (Auto) 6.2 % (0.0-7.3) 07/26/20 07:30 Eos % (Auto) 0.5 % (0.0-4.3) 07/26/20 07:30 Baso % (Auto) 0.3 % (0.0-1.8) 07/26/20 07:30 Lymph # (Auto) 2.0 K/mm3 (1.2-5.4) 07/26/20 07:30 Morton # (Auto) 0.6 K/mm3 (0.0-0.8) 07/26/20 07:30 Eos # (Auto) 0.1 K/mm3 (0.0-0.4) 07/26/20 07:30 Baso # (Auto) 0.0 K/mm3 (0.0-0.1) 07/26/20 07:30 Seg Neutrophils % 71.4 % (40.0-70.0) H 07/26/20 07:30 Seg Neutrophils # 6.8 K/mm3 (1.8-7.7) 07/26/20 07:30 PT 11.7 Sec. (12.2-14.9) L 08/07/20 15:47 INR 0.84 (0.87-1.13) L 08/07/20 15:47 Sodium 135 mmol/L (137-145) L 08/09/20 07:05 Potassium 5.2 mmol/L (3.6-5.0) H 08/09/20 07:05 Chloride 98.0 mmol/L (98-107) 08/09/20 07:05 Carbon Dioxide 23 mmol/L (22-30) 08/09/20 07:05 Anion Gap 19 mmol/L 08/09/20 07:05 BUN 14 mg/dL (7-17) 08/09/20 07:05 Creatinine 0.4 mg/dL (0.6-1.2) L 08/09/20 07:05 Estimated GFR > 60 ml/min 08/09/20 07:05 BUN/Creatinine Ratio 35 % 08/09/20 07:05 Glucose 98 mg/dL (65-100) 08/09/20 07:05 POC Glucose 85 (70-105) 08/09/20 12:12 Lactic Acid 1.50 mmol/L (0.7-2.0) 07/12/20 00:04 Phosphorus 3.10 mg/dL (2.5-4.5) 07/24/20 06:00 Magnesium 2.10 mg/dL (1.7-2.3) 07/24/20 06:00 Calcium 9.0 mg/dL (8.4-10.2) 08/09/20 07:05 Direct Bilirubin < 0.2 mg/dL (0-0.2) 07/13/20 09:33 Ammonia 28.0 umol/L (25-60) 07/11/20 21:17 Total Bilirubin 0.40 mg/dL (0.1-1.2) 08/06/20 08:59 Total Creatine Kinase 102 units/L (30-135) 07/17/20 05:21 CK-MB (CK-2) 9.2 ng/mL (0.0-4.0) H 07/12/20 15:13 AST 63 units/L (5-40) H 08/06/20 08:59 ALT 41 units/L (7-56) 08/06/20 08:59 CK-MB (CK-2) Rel Index 0.4 (0-4) 07/12/20 15:13 Alkaline Phosphatase 59 units/L (35-129) 08/06/20 08:59 Troponin T < 0.010 ng/mL (0.00-0.029) 07/11/20 21:17 Total Protein 6.6 g/dL (6.3-8.2) 08/06/20 08:59 Albumin 3.8 g/dL (3.9-5) L 08/06/20 08:59 Albumin/Globulin Ratio 1.4 % 08/06/20 08:59 Urine Color Yellow (Yellow) 07/11/20 Unknown Urine Turbidity Clear (Clear) 07/11/20 Unknown Urine pH 6.0 (5.0-7.0) 07/11/20 Unknown Ur Specific [place] 1.023 (1.003-1.030) 07/11/20 Unknown Urine Protein 30 mg/dl mg/dL (Negative) 07/11/20 Unknown Urine Glucose (UA) Neg mg/dL (Negative) 07/11/20 Unknown Urine Ketones Tr mg/dL (Negative) 07/11/20 Unknown Urine Blood Neg (Negative) 07/11/20 Unknown Urine Nitrite Neg (Negative) 07/11/20 Unknown Urine Bilirubin Neg (Negative) 07/11/20 Unknown Urine Urobilinogen 2.0 mg/dL (<2.0) 07/11/20 Unknown Ur Leukocyte Esterase Neg (Negative) 07/11/20 Unknown Urine WBC (Auto) 2.0 /HPF (0.0-6.0) 07/11/20 Unknown Urine RBC (Auto) 3.0 /HPF (0.0-6.0) 07/11/20 Unknown U Epithel Cells (Auto) 3.0 /HPF (0-13.0) 07/11/20 Unknown Urine Mucus 3+ /HPF 07/11/20 Unknown Salicylates < 0.3 mg/dL (2.8-20.0) L 07/11/20 21:17 Urine Opiates Screen Presumptive negative 07/11/20 Unknown Urine Methadone Screen Presumptive negative 07/11/20 Unknown Acetaminophen 5.0 ug/mL (10.0-30.0) L 07/11/20 21:17 Ur Barbiturates Screen Presumptive negative 07/11/20 Unknown Valproic Acid 7.7 ug/mL (50-100) L 07/19/20 08:12 Ur Phencyclidine Scrn Presumptive negative 07/11/20 Unknown Ur Amphetamines Screen Presumptive negative 07/11/20 Unknown U Benzodiazepines Scrn Presumptive negative 07/11/20 Unknown Urine Cocaine Screen Presumptive negative 07/11/20 Unknown U Marijuana (THC) Screen Presumptive negative 07/11/20 Unknown Drugs of Abuse Note Disclamer 07/11/20 Unknown C. difficile Tox (PCR) Positive (Negative) 07/19/20 18:51 Ledesma/IV: Voiding Method External Female Catheter IV Catheter Type [Right INT / Saline Lock Antecubital] IV Catheter Type [Left Forearm INT / Saline Lock ] IV Catheter Type [Right Hand] INT / Saline Lock IV Catheter Type [Right Peripheral IV Forearm] IV Catheter Type [Left Hand] INT / Saline Lock Active Medications - Current Medications Current Medications: Generic Name Dose Route Start Last Admin Trade Name Freq PRN Reason Stop Dose Admin Acetaminophen 650 mg 07/12/20 01:05 07/27/20 01:57 Tylenol MN 650 mg Q4H PRN Administration Fever >101 Lipase/Protease/Amylase 1 each 07/22/20 07:[address] 10,500 Unit FEEDTUBE PRN PRN For Clogged Feeding Tube Haloperidol Lactate 5 mg 07/18/20 13:15 07/21/20 22:06 Haldol IM 5 mg Q6H PRN Administration Agitation Heparin Sodium (Porcine) 5,000 unit 07/12/20 10:00 08/09/20 09:55 Heparin SUB-Q Not Given Q8H KEITH Sodium Chloride 1,000 mls @ 50 mls/hr 08/09/20 13:00 Nacl 0.9% 1000 Ml IV DIRECT KEITH Cefazolin Sodium 2 gm in 20 mls @ 80 mls/hr 08/09/20 13:00 Ancef/Sterile Water 2 Gm/20 Ml IV 08/09/20 23:59 PREOP NR Protocol Insulin Human Regular 0 unit 07/23/20 09:00 08/09/20 13:12 Humulin R SUB-Q Not Given Q6HR KEITH Protocol Lorazepam 2 mg 08/06/20 05:05 Ativan IV Q4H PRN Agitation Megestrol Acetate 400 mg 07/22/20 10:00 08/09/20 09:13 Megestrol PO 400 mg QDAY KEITH Administration Olanzapine 2.5 mg 07/25/20 22:00 08/08/20 21:06 Zyprexa PO 2.5 mg QHS KEITH Administration Ondansetron HCl 4 mg 07/12/20 01:06 Zofran IV Q8H PRN Nausea And Vomiting Simple Syrup 15 ml 07/22/20 07:44 Simple Syrup FEEDTUBE PRN PRN Hypoglycemia Simple Syrup 30 ml 07/22/20 07:44 Simple Syrup FEEDTUBE PRN PRN Hypoglycemia Sodium Bicarbonate 325 mg 07/22/20 07:44 Sodium Bicarbonate FEEDTUBE PRN PRN For Clogged Feeding Tube Valproic Acid 250 mg 07/25/20 22:00 08/09/20 09:13 Depakene Liq FEEDTUBE 250 mg BID KEITH Administration Nutrition/Malnutrition Assess - Dietary Evaluation Nutrition/Malnutrition Findings: Nutrition Notes Start: 07/12/20 11:40 Freq: Status: Active Protocol: Document 08/09/20 11:42 (Rec: 08/09/20 11:44 [email or web address]) Nutrition Notes Initial or Follow up Brief Note Other Pertinent Diagnosis C. diff (+), AMS, Rhabdomyolysis, dehydration, Hx of stroke Current Diet NPO Subjective/Other Information Pt NPO for PEG placement today . Nutrition Intervention Anticipated Discharge Needs: unable to determine at this time Follow-Up By: 08/10/20 Additional Comments FU for TF restart/tolerance
[2020-08-09] MEDS ORDERED: SODIUM POLYSTYRENE 15 GM/60 ML ORAL LIQD PR ONE (15:53)
[2020-08-09] MEDS ORDERED: D5W/0.9% NACL 1,000 ML IV SCH (16:00)
[2020-08-10] MEDS: HEPARIN 5,000 UNIT/1 ML VIAL SUB-Q SCH ×3 (01:51→18:04)
[2020-08-10] MEDS: INSULIN REGULAR, HUMAN 100 UNIT/ML 3ML VIAL SUB-Q SCH ×4 (01:52→18:01)
[2020-08-10] MEDS: MEGESTROL 400 MG/10 ML ORAL LIQD PO SCH (11:23)
[2020-08-10] MEDS: VALPROIC ACID 250 MG/5 ML ORAL LIQD FEEDTUBE SCH ×2 (11:23→22:22)
[2020-08-10 14:07] LABS: Blood Urea Nitrogen 9 mg/dL (7-17); Calcium 8.6 mg/dL (8.4-10.2); Hemolysis Index 12
[2020-08-10 14:08] LABS: BUN/Creatinine Ratio 30
--- NOTE | 2020-08-10 17:11 | Progress Note ---
Assessment and Plan - Patient Problems (1) Hyperkalemia Current Visit: Yes Status: Resolved Plan to address problem: 08/09 potassium 5.2, IA Kayexalate Trend BMP 08/10 potassium 3.9 (2) Schizoaffective disorder Current Visit: Yes Status: Chronic Plan to address problem: Patient admitted catatonic state and is nonverbal at this time following commands Psychiatric consult completed; does not recommend inpatient at this time Haldol as needed, Depakote, Zyprexa Supportive care (3) Metabolic encephalopathy Current Visit: Yes Status: Acute Plan to address problem: Multifactorial , schizoaffective disorder Patient came from [place], psych evaluation noted Psych now recommended for outpt f/u Continue NG tube feedings (4) Hyponatremia Current Visit: Yes Status: Resolved Plan to address problem: Admit sodium 142 07/31 134, slight hyponatremia at this time no intervention needed, 08/01 Na 136 however she has remained hyponatremic Hydration with free water flush; 50ml q6 hours while hyponatremic-> informed RN on 08/06 08/07 sodium 136 08/09 sodium 135 Trend BMP 08/10 sodium 141 (5) DVT prophylaxis Current Visit: Yes Status: Acute Plan to address problem: SCDs to bilateral lower extremities while in bed Heparin subcu (6) Discharge planning issues Current Visit: Yes Status: Acute Plan to address problem: Patient's identity is not confirmed [facility] Department has been contacted to aid in identification however unsuccessful [facility] Department have been contacted Inpatient records requested from [facility] again on 08/02 Risk-management made aware of patient again on 08/02 Patient identification confirmed with [facility] Department Attempted to contact children, ERMIAS has an email address and an email was sent over the weekend however there is been no reply 08/07: 2 physician consent for PEG tube obtained and GI consulted for PEG tube placement 08/09: PEG tube placed, resume tube feeds within 4 hours History Interval history: 60-year-old female patient with schizoaffective disorder with active hallucinations and confusion presented from [place] for altered mental status and poor intake on 07/13. She was found to have rhabdomyolysis and electrolyte imbalances. She then developed C. difficile diarrhea and she has completed her regimen of p.o. vancomycin from 07/20-08/03. Patient remains in catatonic state does not follow any commands and is nonverbal. She had a Dobbhoff tube in place with tube feeds infusing. No acute events reported overnight. Patient was found in the [facility] Department records and her family has been contacted via email because we do not have a phone number over the weekend with no response. No acute events reported overnight. TF resumed today. Patient has slight metabolic acidosis (CO2 21). 07/13; patient's CK levels trending down on 1678, continue IV hydration patient is more alert at times, hallucinating, Noncommunicative, severe hypokalemia, replace per protocol 07/14; potassium level significantly improved today to 3.2, replenish per protocol. CK levels trending down 828, continue IV hydration, monitor electrolytes 07/15; patient refused potassium yesterday today potassium levels again 2.7 We will add KCl to IV fluids, and IV K riders, monitor electrolytes. CK level 425. Refusing to eat confused noncommunicative. Possible inpatient psych admission when medically stable 07/16; rhabdomyolysis resolved, mild electrolyte imbalances, if corrected medically stable for inpatient psych placement 07/17: replete K and phosphate. repeat CBc BMP tomorrow. White count needs to be < 10 for inpt psych admission 07/18: cont to have mildly elevated white count, c/o loose stool. will check for C. def - start flagyl and cipro 07/19: White count normal today. change medications to Po. medically stable to go for inpt psych unit. 07/20; positive for C. def. patient not eating properly, refusing meds time to time. Psych now recommended outpt f/u. CM working on placement. Patient remains nonverbal, does not follow any commend and not giving any personal info. 07/21; K 2.0 today, cont to replete, follow BMP, patient remains nonverbal and not cooperative. refuses to eat and meds. cont d51/2NS. if condition doesnot improve will consider TF 07/22: Potassium level persistently remains low, magnesium 1.6 today. Will replete magnesium and potassium. Patient refusing meds and not eating at all per RN report. Totally noncooperative during the encounternot respond to any q uestion. Keeps her eye closing and covering her face with her forearm. Will order for tube feeding and Dobbhoff tube. Continue to follow. We will also add Megace to boost appetite. 07/23: started on TF, follow BMP, change iv fluid to 1/2 NS. patient remains nonverbal 07/24; clinically unchanged, replete K, iv fluid and TF. reconsult psych as patient remains in catatonic phase 07/25: psych recommendation noted, continue tube feeding, continue to replete electrolytes as needed, follow BMP. I strongly believe her severe electrolytes derangement and encephalopathy related to her catatonia, poor oral intake other than any underlying medical conditions. There is no family contact in file, no home address available, patient appeared to be unfunded. infrastructure project manager working on placement. 07/26: psych recommendation noted, continue tube feeding, continue to replete electrolytes as needed, follow BMP. I strongly believe her severe electrolytes derangement and encephalopathy related to her catatonia, poor oral intake other than any underlying medical conditions. There is no family contact in file, no home address available, patient appeared to be unfunded. infrastructure project manager working on placement. 07/27; continue with tube feeding. There is no family contact in file, no home address available, patient appeared to be unfunded. Case management is following. 07/28; patient still on tube feeding, patient is noncommunicative. I believe her condition is related to her catatonia. Psych is following her. Currently her electrolytes are corrected. There is no family contact in file, no home address available, patient appeared to be unfunded. Case management is following. 07/29 patient is nonverbal, eyes open does not follow simple commands,, still having low-grade fever T-max 100 degrees,, lab results reviewed discussed with RN- still has loose stools, nurse case manager notes reviewed, unable to contact family 07/30 no acute events overnight, diarrhea improved, stop IV fluids, disposition t o be decided 07/31: inshore undersea warfare officer presented to the bedside to attempt to fingerprint the patient to identify her. However his machine was not working 08/01:' Per nurse case manager note [facility] Department has been contacted to help in identifying the patient. On officer is to report to bedside and was instructed to call the nurse case manager upon arrival. 08/02/2020 still has diarrhea 08/03/2020 diarrhea improving. Today is the last day of vancomycin 08/04/2020 patient has no diarrhea 08/05: hydrodynamics professor RN reported patient had a seizure overnight, Ativan was ordered however was not administered because according to the dayshift RN he was reported that the patient "did not need the medication because she was not having a seizure at the moment". Patient remained hyponatremic and hypochlore yimi and after conversing with the nurse patient was not getting her prescribed dose FWF for hyponatremia which was corrected 08/06: Electrolyte imbalance discontinue, patient still catatonic 08/07: Electrolyte imbalances continue, to physician consent for PEG tube obtained and GI consulted 08/08: PEG scheduled for 08/09 08/09: s/p PEG placement with GI, hyperkalemic (potassium 5.2) s/p IA Kayexalate. Hospitalist Physical - Physical exam Narrative exam: General appearance: Present: no acute distress, other (Nonverbal, awake) - EENT Eyes: Present: PERRL - Neck Neck: Present: supple, normal ROM - Respiratory Respiratory effort: normal Respiratory: bilateral: CTA - Cardiovascular Rhythm: regular Heart Sounds: Present: S1 & S2. Absent: systolic murmur, diastolic murmur - Extremities Extremities: no ischemia, pulses intact, pulses symmetrical, No edema, normal temperature, normal color, Full ROM Peripheral Pulses: within normal limits - Abdominal General gastrointestinal: soft, non-tender, non-distended, normal bowel sounds - Integumentary Integumentary: Present: clear, warm, dry - Psychiatric Psychiatric: other (Patient is nonverbal, does not follow any commands however does withdraw to pain to all 4 extremities) - Neurologic Neurologic: moves all extremities (spontaneously) - Constitutional Vitals: Temp Pulse Resp BP Pulse Ox 99.2 F 95 H 18 99/65 95 08/09/20 22:06 08/10/20 08:34 08/10/20 08:34 08/09/20 22:06 08/10/20 08:34 General appearance: Present: no acute distress, well-nourished HEART Score - HEART Score Risk factors: 1-2 risk factors Troponin: Troponin T < 0.010 ng/mL (0.00-0.029) 07/11/20 21:17 Troponin: < normal limit - Critical Actions Critical Actions: 0-3 pts:0.9-1.7%risk of adverse cardiac event.Candidate for discharge Results - Labs CBC & Chem 7: 08/09/20 07:05 08/10/20 13:00 Labs: Laboratory Last Values WBC 10.9 K/mm3 (4.5-11.0) 08/09/20 07:05 RBC 4.06 M/mm3 (3.65-5.03) 08/09/20 07:05 Hgb 14.0 gm/dl (10.1-14.3) 08/09/20 07:05 Hct 38.9 % (30.3-42.9) D 08/09/20 07:05 MCV 96 fl (79-97) 08/09/20 07:05 MCH 34 pg (28-32) H 08/09/20 07:05 MCHC 36 % (30-34) H 08/09/20 07:05 RDW 14.6 % (13.2-15.2) 08/09/20 07:05 Plt Count 539 K/mm3 (140-440) H 08/09/20 07:05 Lymph % (Auto) 21.6 % (13.4-35.0) 07/26/20 07:30 [place] % (Auto) 6.2 % (0.0-7.3) 07/26/20 07:30 Eos % (Auto) 0.5 % (0.0-4.3) 07/26/20 07:30 Baso % (Auto) 0.3 % (0.0-1.8) 07/26/20 07:30 Lymph # (Auto) 2.0 K/mm3 (1.2-5.4) 07/26/20 07:30 [place] # (Auto) 0.6 K/mm3 (0.0-0.8) 07/26/20 07:30 Eos # (Auto) 0.1 K/mm3 (0.0-0.4) 07/26/20 07:30 Baso # (Auto) 0.0 K/mm3 (0.0-0.1) 07/26/20 07:30 Seg Neutrophils % 71.4 % (40.0-70.0) H 07/26/20 07:30 Seg Neutrophils # 6.8 K/mm3 (1.8-7.7) 07/26/20 07:30 PT 11.7 Sec. (12.2-14.9) L 08/07/20 15:47 INR 0.84 (0.87-1.13) L 08/07/20 15:47 Sodium 141 mmol/L (137-145) 08/10/20 13:00 Potassium 3.9 mmol/L (3.6-5.0) D 08/10/20 13:00 Chloride 101.7 mmol/L (98-107) 08/10/20 13:00 Carbon Dioxide 21 mmol/L (22-30) L 08/10/20 13:00 Anion Gap 22 mmol/L 08/10/20 13:00 BUN 9 mg/dL (7-17) 08/10/20 13:00 Creatinine 0.3 mg/dL (0.6-1.2) L 08/10/20 13:00 Estimated GFR > 60 ml/min 08/10/20 13:00 BUN/Creatinine Ratio 30 % 08/10/20 13:00 Glucose 91 mg/dL (65-100) 08/10/20 13:00 POC Glucose 87 (70-105) 08/10/20 11:50 Lactic Acid 1.50 mmol/L (0.7-2.0) 07/12/20 00:04 Phosphorus 3.10 mg/dL (2.5-4.5) 07/24/20 06:00 Magnesium 2.10 mg/dL (1.7-2.3) 07/24/20 06:00 Calcium 8.6 mg/dL (8.4-10.2) 08/10/20 13:00 Direct Bilirubin < 0.2 mg/dL (0-0.2) 07/13/20 09:33 Ammonia 28.0 umol/L (25-60) 07/11/20 21:17 Total Bilirubin 0.40 mg/dL (0.1-1.2) 08/06/20 08:59 Total Creatine Kinase 102 units/L (30-135) 07/17/20 05:21 CK-MB (CK-2) 9.2 ng/mL (0.0-4.0) H 07/12/20 15:13 AST 63 units/L (5-40) H 08/06/20 08:59 ALT 41 units/L (7-56) 08/06/20 08:59 CK-MB (CK-2) Rel Index 0.4 (0-4) 07/12/20 15:13 Alkaline Phosphatase 59 units/L (35-129) 08/06/20 08:59 Troponin T < 0.010 ng/mL (0.00-0.029) 07/11/20 21:17 Total Protein 6.6 g/dL (6.3-8.2) 08/06/20 08:59 Albumin 3.8 g/dL (3.9-5) L 08/06/20 08:59 Albumin/Globulin Ratio 1.4 % 08/06/20 08:59 Urine Color Yellow (Yellow) 07/11/20 Unknown Urine Turbidity Clear (Clear) 07/11/20 Unknown Urine pH 6.0 (5.0-7.0) 07/11/20 Unknown Ur Specific [place] 1.023 (1.003-1.030) 07/11/20 Unknown Urine Protein 30 mg/dl mg/dL (Negative) 07/11/20 Unknown Urine Glucose (UA) Neg mg/dL (Negative) 07/11/20 Unknown Urine Ketones Tr mg/dL (Negative) 07/11/20 Unknown Urine Blood Neg (Negative) 07/11/20 Unknown Urine Nitrite Neg (Negative) 07/11/20 Unknown Urine Bilirubin Neg (Negative) 07/11/20 Unknown Urine Urobilinogen 2.0 mg/dL (<2.0) 07/11/20 Unknown Ur Leukocyte Esterase Neg (Negative) 07/11/20 Unknown Urine WBC (Auto) 2.0 /HPF (0.0-6.0) 07/11/20 Unknown Urine RBC (Auto) 3.0 /HPF (0.0-6.0) 07/11/20 Unknown U Epithel Cells (Auto) 3.0 /HPF (0-13.0) 07/11/20 Unknown Urine Mucus 3+ /HPF 07/11/20 Unknown Salicylates < 0.3 mg/dL (2.8-20.0) L 07/11/20 21:17 Urine Opiates Screen Presumptive negative 07/11/20 Unknown Urine Methadone Screen Presumptive negative 07/11/20 Unknown Acetaminophen 5.0 ug/mL (10.0-30.0) L 07/11/20 21:17 Ur Barbiturates Screen Presumptive negative 07/11/20 Unknown Valproic Acid 7.7 ug/mL (50-100) L 07/19/20 08:12 Ur Phencyclidine Scrn Presumptive negative 07/11/20 Unknown Ur Amphetamines Screen Presumptive negative 07/11/20 Unknown U Benzodiazepines Scrn Presumptive negative 07/11/20 Unknown Urine Cocaine Screen Presumptive negative 07/11/20 Unknown U Marijuana (THC) Screen Presumptive negative 07/11/20 Unknown Drugs of Abuse Note Disclamer 07/11/20 Unknown C. difficile Tox (PCR) Positive (Negative) 07/19/20 18:51 Led[place]ma/IV: Voiding Method Incontinent IV Catheter Type [Right INT / Saline Lock Antecubital] IV Catheter Type [Left Forearm INT / Saline Lock ] IV Catheter Type [Right Hand] INT / Saline Lock IV Catheter Type [Right Peripheral IV Forearm] IV Catheter Type [Left Hand] INT / Saline Lock Active Medications - Current Medications Current Medications: Generic Name Dose Route Start Last Admin Trade Name Freq PRN Reason Stop Dose Admin Acetaminophen 650 mg 07/12/20 01:05 07/27/20 01:57 Tylenol IA 650 mg Q4H PRN Administration Fever >101 Lipase/Protease/Amylase 1 each 07/22/20 07:[address] 10,500 Unit FEEDTUBE PRN PRN For Clogged Feeding Tube Haloperidol Lactate 5 mg 07/18/20 13:15 07/21/20 22:06 Haldol IM 5 mg Q6H PRN Administration Agitation Heparin Sodium (Porcine) 5,000 unit 07/12/20 10:00 08/10/20 11:23 Heparin SUB-Q 5,000 unit Q8H KEITH Administration Sodium Chloride 1,000 mls @ 50 mls/hr 08/09/20 13:00 Nacl 0.9% 1000 Ml IV DIRECT KEITH Insulin Human Regular 0 unit 07/23/20 09:00 08/10/20 12:00 Humulin R SUB-Q Not Given Q6HR KEITH Protocol Lorazepam 2 mg 08/06/20 05:05 Ativan IV Q4H PRN Agitation Megestrol Acetate 400 mg 07/22/20 10:00 08/10/20 11:23 Megestrol PO 400 mg QDAY KEITH Administration Olanzapine 2.5 mg 07/25/20 22:00 08/09/20 22:19 Zyprexa PO 2.5 mg QHS KEITH Administration Ondansetron HCl 4 mg 07/12/20 01:06 Zofran IV Q8H PRN Nausea And Vomiting Simple Syrup 15 ml 07/22/20 07:44 Simple Syrup FEEDTUBE PRN PRN Hypoglycemia Simple Syrup 30 ml 07/22/20 07:44 Simple Syrup FEEDTUBE PRN PRN Hypoglycemia Sodium Bicarbonate 325 mg 07/22/20 07:44 Sodium Bicarbonate FEEDTUBE PRN PRN For Clogged Feeding Tube Valproic Acid 250 mg 07/25/20 22:00 08/10/20 11:23 Depakene Liq FEEDTUBE 250 mg BID KEITH Administration Nutrition/Malnutrition Assess - Dietary Evaluation Nutrition/Malnutrition Findings: Nutrition Notes Start: 07/12/20 11 :40 Freq: Status: Active Protocol: Document 08/10/20 12:07 LM (Rec: 08/10/20 12:32 LM [id number]) Nutrition Notes Initial or Follow up Reassessment Other Pertinent Diagnosis C. diff (+), AMS, Rhabdomyolysis, dehydration, Hx of stroke Current Diet NPO Labs/Tests Reviewed Pertinent Medications Reviewed Height 5 ft Weight 52.3 kg [place] Body Weight (kg) 45.45 BMI 22.5 Weight change and time frame Wt change noted. Weight Status Appropriate Subjective/Other Information Pt is s/p PEG placement. Percent of energy/protein needs met: 0%/0% Burn Absent Trauma Absent GI Symptoms None Current % PO Negligible Minimum of two criteria No Energy Intake (severe) < or equal to 50% Estimated Energy Requirement > or equal to 5 days #1 Nutrition Diagnosis Inadequate oral intake Diagnosis Progress(for reassessment Continues documentation) Is patient on ventilator? No Is Patient Ambulatory and/or Out of Bed No REE-([facility]-confined to bed) [phone] Calculation Used for Recommendations [facility] Additional Notes Protein Needs 59-70g (1-1.2g/ kg) Fluid Needs: 1ml/kcal Nutrition Intervention Change Diet Order: Restart TF Nutrition Support: Osmolite 1.5 at 35ml/hr. Flush 100ml q4hr Kcal 1,260 Protein (gm) 53 Fluid (mL) 640 Goal #1 TF tolerance Goal #2 Meet a least 80% of energy and protein needs Anticipated Discharge Needs: unable to determine at this time Follow-Up By: 08/13/20 Additional Comments FU for TF restart/tolerancePatrick
--- NOTE | 2020-08-10 20:12 | Gastroenterology Progress Note ---
Assessment and Plan # AMS # Malnutrition - GI consulted for PEG placement as patient remains in catatonic state, aspiration risk for swallow. - C diff diarrhea treated with PO vancomycin and resolved. - unable to locate family. - s/p PEG tube placement on 08/09/2020. outer bumper loosened by bedside. Rec - continue with tube feeds per nutrition - keep head of bed elevated. - aspiration precautions. - will sign off. Subjective Date of service: 08/10/20 Principal diagnosis: C diff Interval history: s/p PEG tube on 08/09/2020. Tolerating tube feeds. Objective - Constitutional Vitals: Temp Pulse Resp BP Pulse Ox 98.2 F 90 18 103/57 97 08/10/20 17:05 08/10/20 17:05 08/10/20 17:05 08/10/20 17:05 08/10/20 17:05 General appearance: no acute distress - Respiratory Respiratory effort: normal - Cardiovascular Rhythm: regular Heart Sounds: Present: S1 & S2 - Gastrointestinal General gastrointestinal: Present: soft, non-tender, non-distended - Labs CBC & Chem 7: 08/09/20 07:05 08/10/20 13:00 Labs: Laboratory Results - last 24 hr 08/09/20 08/10/20 08/10/20 23:30 06:14 11:50 Sodium Potassium Chloride Carbon Dioxide Anion Gap BUN Creatinine Estimated GFR BUN/Creatinine Ratio Glucose POC Glucose 208 H 82 87 Calcium 08/10/20 08/10/20 13:00 17:21 Sodium 141 Potassium 3.9 D Chloride 101.7 Carbon Dioxide 21 L Anion Gap 22 BUN 9 Creatinine 0.3 L Estimated GFR > 60 BUN/Creatinine Ratio 30 Glucose 91 POC Glucose 99 Calcium 8.6
[2020-08-11] MEDS: INSULIN REGULAR, HUMAN 100 UNIT/ML 3ML VIAL SUB-Q SCH ×4 (00:17→18:05)
[2020-08-11] MEDS: HEPARIN 5,000 UNIT/1 ML VIAL SUB-Q SCH ×3 (02:21→18:09)
--- NOTE | 2020-08-11 07:35 | Progress Note ---
Assessment and Plan Assessment and plan: -- C. def colitis changed abx to vancomycin po for 2 weeks total - 08/03/20 end date --Severe hypokalemia: Follow electrolytes, replete and monitor BMP as needed --Hypomagnesemia, replete and monitor level -- Rhabdomyolysis-resolved Preserved renal function, cont IV hydration Input output monitoring, monitor CK levels CK levels trending down [id number] --Schizo affective disorder; Psych evaluation and recommendations noted and appreciated. patient refusing meds and oral diet Management per psych, Recommend outpt f/u --Acute metabolic encephalopathy /altered mental state Multifactorial , schizoaffective disorder Patient came from oto, psych evaluation noted Psych now recommended for outpt f/u --Severe dehydration; improved continue IV hydration Input output monitoring Encourage plenty oral fluids but she is not taking any --transaminitis:- Probably secondary to rhabdo, Trended down --Poor oral intake with electrolyte imbalance Will add Megace and start on tube feeding --DVT prophylaxis; Heparin subcu Closely monitor the patient and adjust management as needed Plan of care reviewed with the patient's nurse Psych recommended outpt f/u Brief history: 60-year-old female patient was sent from [facility] with altered level of consciousness and poor oral intake. Patient has schizoaffective disorder with active hallucinations and confusion, Patient was noted to have rhabdomyolysis and multiple electrolyte imbalances, Rhabdomyolysis is resolved, mild hypokalemia and hypo-phosphatemia - being corrected. Then she developed diarrhea - now positive for C. def, on vancomycin po. Patient remained in catatonic state, does not follow any command, does not want to eat and refuse meds. I strongly believe her electrolytes derangement and encephalopathy related to her catatonia, poor oral intake other than any underlying medical conditions. 07/13; patient's CK levels trending down on 1678, continue IV hydration patient is more alert at times, hallucinating Noncommunicative, severe hypokalemia, replace per protocol 07/14; potassium level significantly improved today to 3.2, replenish per protocol. CK levels trending down 828, continue IV hydration, monitor electrolytes 07/15; patient refused potassium yesterday today potassium levels again 2.7 We will add KCl to IV fluids, and IV K riders, monitor electrolytes. CK level 425. Refusing to eat confused noncommunicative. Possible inpatient psych admission when medically stable 07/16; rhabdomyolysis resolved, mild electrolyte imbalances, if corrected medically stable for inpatient psych placement 07/17: replete K and phosphate. repeat CBc BMP tomorrow. White count needs to be < 10 for inpt psych admission 07/18: cont to have mildly elevated white count, c/o loose stool. will check for C. def - start flagyl and cipro 07/19: White count normal today. change medications to Po. medically stable to go for inpt psych unit. 07/20; positive for C. def. patient not eating properly, refusing meds time to time. Psych now recommended outpt f/u. CM working on placement. Patient remains nonverbal, does not follow any commend and not giving any personal info. 07/21; K 2.0 today, cont to replete, follow BMP, patient remains nonverbal and not cooperative. refuses to eat and meds. cont d51/2NS. if condition doesnot improve will consider TF 07/22: Potassium level persistently remains low, magnesium 1.6 today. Will replete magnesium and potassium. Patient refusing meds and not eating at all per RN report. Totally noncooperative during the encounternot respond to any question. Keeps her eye closing and covering her face with her forearm. Will order for tube feeding and Dobbhoff tube. Continue to follow. We will also add Megace to boost appetite. 07/23: started on TF, follow BMP, change iv fluid to 1/2 NS. patient remains nonverbal 07/24; clinically unchanged, replete K, iv fluid and TF. reconsult psych as patient remains in catatonic phase 07/25: psych recommendation noted, continue tube feeding, continue to replete electrolytes as needed, follow BMP. I strongly believe her severe electrolytes derangement and encephalopathy related to her catatonia, poor oral intake other than any underlying medical conditions. There is no family contact in file, no home address available, patient appeared to be unfunded. loading manager working on placement. 07/26: psych recommendation noted, continue tube feeding, continue to replete electrolytes as needed, follow BMP. I strongly believe her severe electrolytes derangement and encephalopathy related to her catatonia, poor oral intake other than any underlying medical conditions. There is no family contact in file, no home address available, patient appeared to be unfunded. loading manager working on placement. 07/27; continue with tube feeding. There is no family contact in file, no home a ddress available, patient appeared to be unfunded. Case management is following. 07/28; patient still on tube feeding, patient is noncommunicative. I believe her condition is related to her catatonia. Psych is following her. Currently her electrolytes are corrected. There is no family contact in file, no home address available, patient appeared to be unfunded. Case management is following. 08/09; patient is still on tube feeding, patient is noncommunicative. Patient will have PEG tube placement today. Case management is following the patient. 08/11; patient is on PEG tube feeding. C. difficile treated and resolved. Patient still in catatonic state. Pending guardianship. History Interval history: Patient was seen and evaluated this morning Patient is noncommunicative, altered On PEG tube feeding Hospitalist Physical - Physical exam Narrative exam: Patient is noncommunicative, on PEG tube feeding The patient appeared well nourished and normally developed. Vital signs as documented. Head exam is unremarkable. No scleral icterus . Neck is without jugular venous distension, thyromegaly, or carotid bruits. Lungs are clear to auscultation. Cardiac exam reveals regular rate and Rhythm. Abdominal exam reveals PEG tube in place. Extremities are nonedematous and both femoral and pedal pulses are normal. MEDIA PLANNER / BUYER: Patient is noncommunicative. - Constitutional Vitals: Temp Pulse Resp BP Pulse Ox 99.1 F 90 18 87/54 98 08/11/20 05:25 08/11/20 05:25 08/11/20 05:25 08/11/20 05:25 08/11/20 05:25 General appearance: Present: no acute distress, well-nourished HEART Score - HEART Score Risk factors: 1-2 risk factors Troponin: Troponin T < 0.010 ng/mL (0.00-0.029) 07/11/20 21:17 Troponin: < normal limit - Critical Actions Critical Actions: 0-3 pts:0.9-1.7%risk of adverse cardiac event.Candidate for discharge Results - Labs CBC & Chem 7: 08/09/20 07:05 08/10/20 13:00 Labs: Laboratory Last Values WBC 10.9 K/mm3 (4.5-11.0) 08/09/20 07:05 RBC 4.06 M/mm3 (3.65-5.03) 08/09/20 07:05 Hgb 14.0 gm/dl (10.1-14.3) 08/09/20 07:05 Hct 38.9 % (30.3-42.9) D 08/09/20 07:05 MCV 96 fl (79-97) 08/09/20 07:05 MCH 34 pg (28-32) H 08/09/20 07:05 MCHC 36 % (30-34) H 08/09/20 07:05 RDW 14.6 % (13.2-15.2) 08/09/20 07:05 Plt Count 539 K/mm3 (140-440) H 08/09/20 07:05 Lymph % (Auto) 21.6 % (13.4-35.0) 07/26/20 07:30 [place] % (Auto) 6.2 % (0.0-7.3) 07/26/20 07:30 Eos % (Auto) 0.5 % (0.0-4.3) 07/26/20 07:30 Baso % (Auto) 0.3 % (0.0-1.8) 07/26/20 07:30 Lymph # (Auto) 2.0 K/mm3 (1.2-5.4) 07/26/20 07:30 [place] # (Auto) 0.6 K/mm3 (0.0-0.8) 07/26/20 07:30 Eos # (Auto) 0.1 K/mm3 (0.0-0.4) 07/26/20 07:30 Baso # (Auto) 0.0 K/mm3 (0.0-0.1) 07/26/20 07:30 Seg Neutrophils % 71.4 % (40.0-70.0) H 07/26/20 07:30 Seg Neutrophils # 6.8 K/mm3 (1.8-7.7) 07/26/20 07:30 PT 11.7 Sec. (12.2-14.9) L 08/07/20 15:47 INR 0.84 (0.87-1.13) L 08/07/20 15:47 Sodium 141 mmol/L (137-145) 08/10/20 13:00 Potassium 3.9 mmol/L (3.6-5.0) D 08/10/20 13:00 Chloride 101.7 mmol/L (98-107) 08/10/20 13:00 Carbon Dioxide 21 mmol/L (22-30) L 08/10/20 13:00 Anion Gap 22 mmol/L 08/10/20 13:00 BUN 9 mg/dL (7-17) 08/10/20 13:00 Creatinine 0.3 mg/dL (0.6-1.2) L 08/10/20 13:00 Estimated GFR > 60 ml/min 08/10/20 13:00 BUN/Creatinine Ratio 30 % 08/10/20 13:00 Glucose 91 mg/dL (65-100) 08/10/20 13:00 POC Glucose 97 (70-105) 08/11/20 05:39 Lactic Acid 1.50 mmol/L (0.7-2.0) 07/12/20 00:04 Phosphorus 3.10 mg/dL (2.5-4.5) 07/24/20 06:00 Magnesium 2.10 mg/dL (1.7-2.3) 07/24/20 06:00 Calcium 8.6 mg/dL (8.4-10.2) 08/10/20 13:00 Direct Bilirubin < 0.2 mg/dL (0-0.2) 07/13/20 09:33 Ammonia 28.0 umol/L (25-60) 07/11/20 21:17 Total Bilirubin 0.40 mg/dL (0.1-1.2) 08/06/20 08:59 Total Creatine Kinase 102 units/L (30-135) 07/17/20 05:21 CK-MB (CK-2) 9.2 ng/mL (0.0-4.0) H 07/12/20 15:13 AST 63 units/L (5-40) H 08/06/20 08:59 ALT 41 units/L (7-56) 08/06/20 08:59 CK-MB (CK-2) Rel Index 0.4 (0-4) 07/12/20 15:13 Alkaline Phosphatase 59 units/L (35-129) 08/06/20 08:59 Troponin T < 0.010 ng/mL (0.00-0.029) 07/11/20 21:17 Total Protein 6.6 g/dL (6.3-8.2) 08/06/20 08:59 Albumin 3.8 g/dL (3.9-5) L 08/06/20 08:59 Albumin/Globulin Ratio 1.4 % 08/06/20 08:59 Urine Color Yellow (Yellow) 07/11/20 Unknown Urine Turbidity Clear (Clear) 07/11/20 Unknown Urine pH 6.0 (5.0-7.0) 07/11/20 Unknown Ur Specific [place] 1.023 (1.003-1.030) 07/11/20 Unknown Urine Protein 30 mg/dl mg/dL (Negative) 07/11/20 Unknown Urine Glucose (UA) Neg mg/dL (Negative) 07/11/20 Unknown Urine Ketones Tr mg/dL (Negative) 07/11/20 Unknown Urine Blood Neg (Negative) 07/11/20 Unknown Urine Nitrite Neg (Negative) 07/11/20 Unknown Urine Bilirubin Neg (Negative) 07/11/20 Unknown Urine Urobilinogen 2.0 mg/dL (<2.0) 07/11/20 Unknown Ur Leukocyte Esterase Neg (Negative) 07/11/20 Unknown Urine WBC (Auto) 2.0 /HPF (0.0-6.0) 07/11/20 Unknown Urine RBC (Auto) 3.0 /HPF (0.0-6.0) 07/11/20 Unknown U Epithel Cells (Auto) 3.0 /HPF (0-13.0) 07/11/20 Unknown Urine Mucus 3+ /HPF 07/11/20 Unknown Salicylates < 0.3 mg/dL (2.8-20.0) L 07/11/20 21:17 Urine Opiates Screen Presumptive negative 07/11/20 Unknown Urine Methadone Screen Presumptive negative 07/11/20 Unknown Acetaminophen 5.0 ug/mL (10.0-30.0) L 07/11/20 21:17 Ur Barbiturates Screen Presumptive negative 07/11/20 Unknown Valproic Acid 7.7 ug/mL (50-100) L 07/19/20 08:12 Ur Phencyclidine Scrn Presumptive negative 07/11/20 Unknown Ur Amphetamines Screen Presumptive negative 07/11/20 Unknown U Benzodiazepines Scrn Presumptive negative 07/11/20 Unknown Urine Cocaine Screen Presumptive negative 07/11/20 Unknown U Marijuana (THC) Screen Presumptive negative 07/11/20 Unknown Drugs of Abuse Note Disclamer 07/11/20 Unknown C. difficile Tox (PCR) Positive (Negative) 07/19/20 18:51 Led[place]ma/IV: Voiding Method External Female Catheter IV Catheter Type [Right INT / Saline Lock Antecubital] IV Catheter Type [Left Forearm INT / Saline Lock ] IV Catheter Type [Right Hand] INT / Saline Lock IV Catheter Type [Right Peripheral IV Forearm] IV Catheter Type [Left Hand] INT / Saline Lock Active Medications - Current Medications Current Medications: Generic Name Dose Route Start Last Admin Trade Name Freq PRN Reason Stop Dose Admin Acetaminophen 650 mg 07/12/20 01:05 07/27/20 01:57 Tylenol ND 650 mg Q4H PRN Administration Fever >101 Lipase/Protease/Amylase 1 each 07/22/20 07:[address] 10,500 Unit FEEDTUBE PRN PRN For Clogged Feeding Tube Haloperidol Lactate 5 mg 07/18/20 13:15 07/21/20 22:06 Haldol IM 5 mg Q6H PRN Administration Agitation Heparin Sodium (Porcine) 5,000 unit 07/12/20 10:00 08/11/20 02:21 Heparin SUB-Q 5,000 unit Q8H KEITH Administration Insulin Human Regular 0 unit 07/23/20 09:00 08/11/20 06:54 Humulin R SUB-Q Not Given Q6HR KEITH Protocol Lorazepam 2 mg 08/06/20 05:05 Ativan IV Q4H PRN Agitation Megestrol Acetate 400 mg 07/22/20 10:00 08/10/20 11:23 Megestrol PO 400 mg QDAY KEITH Administration Olanzapine 2.5 mg 07/25/20 22:00 08/10/20 22:22 Zyprexa PO 2.5 mg QHS KEITH Administration Ondansetron HCl 4 mg 07/12/20 01:06 Zofran IV Q8H PRN Nausea And Vomiting Simple Syrup 15 ml 07/22/20 07:44 Simple Syrup FEEDTUBE PRN PRN Hypoglycemia Simple Syrup 30 ml 07/22/20 07:44 Simple Syrup FEEDTUBE PRN PRN Hypoglycemia Sodium Bicarbonate 325 mg 07/22/20 07:44 Sodium Bicarbonate FEEDTUBE PRN PRN For Clogged Feeding Tube Valproic Acid 250 mg 07/25/20 22:00 08/10/20 22:22 Depakene Liq FEEDTUBE 250 mg BID KEITH Administration Nutrition/Malnutrition Assess - Dietary Evaluation Nutrition/Malnutrition Findings: Nutrition Notes Start: 07/12/20 11:40 Freq: Status: Active Protocol: Document 08/10/20 12:07 LM (Rec: 08/10/20 12:32 LM [id number]) Nutrition Notes Initial or Follow up Reassessment Other Pertinent Diagnosis C. diff (+), AMS, Rhabdomyolysis, dehydration, Hx of stroke Current Diet NPO Labs/Tests Reviewed Pertinent Medications Reviewed Height 5 ft Weight 52.3 kg [place] Body Weight (kg) 45.45 BMI 22.5 Weight change and time frame Wt change noted. Weight Status Appropriate Subjective/Other Information Pt is s/p PEG placement. Percent of energy/protein needs met: 0%/0% Burn Absent Trauma Absent GI Symptoms None Current % PO Negligible Minimum of two criteria No Energy Intake (severe) < or equal to 50% Estimated Energy Requirement > or equal to 5 days #1 Nutrition Diagnosis Inadequate oral intake Diagnosis Progress(for reassessment Continues documentation) Is patient on ventilator? No Is Patient Ambulatory and/or Out of Bed No REE-([facility]-confined to bed) 1216.782 Calculation Used for Recommendations [facility] Additional Notes Protein Needs 59-70g (1-1.2g/ kg) Fluid Needs: 1ml/kcal Nutrition Intervention Change Diet Order: Restart TF Nutrition Support: Osmolite 1.5 at 35ml/hr. Flush 100ml q4hr Kcal 1,260 Protein (gm) 53 Fluid (mL) 640 Goal #1 TF tolerance Goal #2 Meet a least 80% of energy and protein needs Anticipated Discharge Needs: unable to determine at this time Follow-Up By: 08/13/20 Additional Comments FU for TF restart/tolerance, K
[2020-08-11] MEDS: VALPROIC ACID 250 MG/5 ML ORAL LIQD FEEDTUBE SCH ×2 (10:09→22:48)
[2020-08-11] MEDS: MEGESTROL 400 MG/10 ML ORAL LIQD PO SCH (10:09)
[2020-08-12] MEDS: HEPARIN 5,000 UNIT/1 ML VIAL SUB-Q SCH ×3 (02:57→17:16)
[2020-08-12] MEDS: INSULIN REGULAR, HUMAN 100 UNIT/ML 3ML VIAL SUB-Q SCH ×4 (06:26→18:44)
[2020-08-12] MEDS: VALPROIC ACID 250 MG/5 ML ORAL LIQD FEEDTUBE SCH ×2 (09:52→22:28)
[2020-08-12] MEDS: MEGESTROL 400 MG/10 ML ORAL LIQD PO SCH (09:52)
[2020-08-12] MEDS: LORazepam 2 MG/ML VIAL IV PRN (17:37)
--- NOTE | 2020-08-12 19:56 | Progress Note ---
Assessment and Plan Assessment and Plan - Patient Problems (1) C. difficile diarrhea Current Visit: Yes Status: Acute Plan to address problem: 07/19 C. difficile positive P.o. Vancomycin 100 mg every 6 hours (07/20 through 08/03) Contact isolation Supportive care -Finished oral vancomycin course Diarrhea has improved-resolved (2) Schizoaffective disorder Current Visit: Yes Status: Chronic Plan to address problem: Patient admitted catatonic state and is nonverbal at this time following commands Psychiatric consult completed; does not recommend inpatient at this time Haldol as needed, Depakote, Zyprexa Supportive care (3) Transaminitis Current Visit: Yes Status: Resolved (4) Metabolic encephalopathy Current Visit: Yes Status: Acute Plan to address problem: Patient is in catatonic stage (5) Rhabdomyolysis Current Visit: Yes Status: Resolved Qualifiers: Rhabdomyolysis type: non-traumatic Qualified Code(s): M62.82 - Rhabdomyo lysis Corrected (6) Dehydration Improved Hyponatremiaus: Admit sodium 142 07/31 134, slight hyponatremia at this time no intervention needed, 08/01 Na 136 Hydration with free water flush Trend BMP (8) Metabolic acidosis Current Visit: Yes Status: Resolved (9) Hypochloremia Current Visit: Yes Status: Acute Plan to address problem: 07/31 chloride 97, 08/02 chloride 97.9 Patient on tube feedings with [facility] We will continue to monitor as this is a slight decrease (10) DVT prophylaxis Current Visit: Yes Status: Acute Plan to address problem: SCDs to bilateral lower extremities while in bed Heparin subcu (11) Discharge planning issues Current Visit: Yes Status: Acute Plan to address problem: Patient's identity is not confirmed [facility] Department has been contacted to aid in identification however [facility] Department have been contacted Inpatient records requested from [facility] again on 08/02 Risk-management made aware of patient again on 08/02 Pending guardianship and placement. Case management involved. Subjective Date of service: 08/12/20 Principal diagnosis: C diff Interval history: Brief history: 60-year-old female patient was sent from [facility] with altered level of consciousness and poor oral intake. Patient has schizoaffective disorder with active hallucinations and confusion, Patient was noted to have rhabdomyolysis and multiple electrolyte imbalances, Rhabdomyolysis is resolved, mild hypokalemia and hypo-phosphatemia - being corrected. Then she developed diarrhea - now positive for C. def, on vancomycin po. Patient remained in catatonic state, does not follow any command, does not want to eat and refuse meds. I strongly believe her electrolytes derangement and encephalopathy related to her catatonia, poor oral intake other than any underlying medical conditions. 07/13; patient's CK levels trending down on 1678, continue IV hydration patient is more alert at times, hallucinating Noncommunicative, severe hypokalemia, replace per protocol 07/14; potassium level significantly improved today to 3.2, replenish per protocol. CK levels trending down 828, continue IV hydration, monitor electrolytes 07/15; patient refused potassium yesterday today potassium levels again 2.7 We will add KCl to IV fluids, and IV K riders, monitor electrolytes. CK level 425. Refusing to eat confused noncommunicative. Possible inpatient psych admission when medically stable 07/16; rhabdomyolysis resolved, mild electrolyte imbalances, if corrected medically stable for inpatient psych placement 07/17: replete K and phosphate. repeat CBc BMP tomorrow. White count needs to be < 10 for inpt psych admission 07/18: cont to have mildly elevated white count, c/o loose stool. will check for C. def - start flagyl and cipro 07/19: White count normal today. change medications to Po. medically stable to go for inpt psych unit. 07/20; positive for C. def. patient not eating properly, refusing meds time to time. Psych now recommended outpt f/u. CM working on placement. Patient remains nonverbal, does not follow any commend and not giving any personal info. 07/21; K 2.0 today, cont to replete, follow BMP, patient remains nonverbal and not cooperative. refuses to eat and meds. cont d51/2NS. if condition doesnot improve will consider TF 07/22: Potassium level persistently remains low, magnesium 1.6 today. Will replete magnesium and potassium. Patient refusing meds and not eating at all per RN report. Totally noncooperative during the encounternot respond to any question. Keeps her eye closing and covering her face with her forearm. Will order for tube feeding and Dobbhoff tube. Continue to follow. We will also add Megace to boost appetite. 07/23: started on TF, follow BMP, change iv fluid to 1/2 NS. patient remains nonverbal 07/24; clinically unchanged, replete K, iv fluid and TF. reconsult psych as patient remains in catatonic phase 07/25: psych recommendation noted, continue tube feeding, continue to replete electrolytes as needed, follow BMP. I strongly believe her severe electrolytes derangement and encephalopathy related to her catatonia, poor oral intake other than any underlying medical conditions. There is no family contact in file, no home address available, patient appeared to be unfunded. 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 07/26: psych recommendation noted, continue tube feeding, continue to replete electrolytes as needed, follow BMP. I strongly believe her severe electrolytes derangement and encephalopathy related to her catatonia, poor oral intake other than any underlying medical conditions. There is no family contact in file, no home address available, patient appeared to be unfunded. 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 07/27; continue with tube feeding. There is no family contact in file, no home address available, patient appeared to be unfunded. Case management is following. 07/28; patient still on tube feeding, patient is noncommunicative. I believe her condition is related to her catatonia. Psych is following her. Currently her electrolytes are corrected. There is no family contact in file, no home address available, patient appeared to be unfunded. Case management is following. 08/09; patient is still on tube feeding, patient is noncommunicative. Patient will have PEG tube placement today. Case management is following the patient. 08/11; patient is on PEG tube feeding. C. difficile treated and resolved. Patient still in catatonic state. Pending guardianship. 08/12/2020 patient on PEG tube feeding. Guardianship pending. Pending placement. Objective - Constitutional Vitals: Vital Signs - 12hr 08/12/20 08/12/20 08/12/20 08:00 10:00 11:15 Temperature 98.3 F Pulse Rate 89 88 Respiratory 16 20 Rate Blood Pressure 95/57 Blood Pressure [Left] O2 Sat by Pulse 97 Oximetry 08/12/20 17:00 Temperature 98.8 F Pulse Rate 121 H Respiratory 20 Rate Blood Pressure Blood Pressure 141/84 [Left] O2 Sat by Pulse 100 Oximetry General appearance: Present: no acute distress, well-nourished - EENT Eyes: PERRL, EOM intact ENT: hearing intact, clear oral mucosa Ears: bilateral: normal - Neck Neck: supple, normal ROM - Respiratory Respiratory effort: normal Respiratory: bilateral: CTA - Breasts Breasts: normal - Cardiovascular Rhythm: regular Heart Sounds: Present: S1 & S2. Absent: gallop, rub Extremities: pulses intact, No edema, normal color, Full ROM - Gastrointestinal General gastrointestinal: Present: soft, non-tender, non-distended, normal bowel sounds - Genitourinary Female genitourinary: normal - Integumentary Integumentary: clear, warm, dry - Musculoskeletal Musculoskeletal: 1, strength equal bilaterally - Neurologic Neurologic: moves all extremities - Psychiatric Psychiatric: memory intact, appropriate mood/affect, intact judgment & insight - Labs CBC & Chem 7: 08/09/20 07:05 08/10/20 13:00 Labs: Abnormal lab results 08/11/20 08/12/20 08/12/20 Range/Units 23:31 06:18 12:17 POC Glucose 133 H 132 H 124 H (70-105) 08/12/20 Range/Units 16:40 POC Glucose 109 H (70-105) HEART Score - HEART Score Risk factors: 1-2 risk factors Troponin: Troponin T < 0.010 ng/mL (0.00-0.029) 07/11/20 21:17 Troponin: < normal limit - Critical Actions Critical Actions: 0-3 pts:0.9-1.7%risk of adverse cardiac event.Candidate for discharge
[2020-08-13] MEDS: HEPARIN 5,000 UNIT/1 ML VIAL SUB-Q SCH ×3 (01:53→21:02)
[2020-08-13] MEDS: INSULIN REGULAR, HUMAN 100 UNIT/ML 3ML VIAL SUB-Q SCH ×4 (06:00→21:02)
[2020-08-13] MEDS: MEGESTROL 400 MG/10 ML ORAL LIQD PO SCH (10:11)
[2020-08-13] MEDS: VALPROIC ACID 250 MG/5 ML ORAL LIQD FEEDTUBE SCH ×2 (10:11→22:18)
--- NOTE | 2020-08-13 14:18 | Progress Note ---
Assessment and Plan - Patient Problems (1) Schizoaffective disorder Current Visit: Yes Status: Chronic Plan to address problem: Patient admitted catatonic state and is nonverbal at this time following commands Psychiatric consult completed; does not recommend inpatient at this time Haldol as needed, Depakote, Zyprexa Supportive care (2) Metabolic encephalopathy Current Visit: Yes Status: Acute Plan to address problem: Multifactorial , schizoaffective disorder Patient came from [place], psych evaluation noted Psych now recommended for outpt f/u Continue NG tube feedings (3) DVT prophylaxis Current Visit: Yes Status: Acute Plan to address problem: SCDs to bilateral lower extremities while in bed Heparin subcu (4) Discharge planning issues Current Visit: Yes Status: Acute Plan to address problem: Patient's identity is not confirmed [facility] has been contacted to aid in identification however unsuccessful [facility] Department have been contacted Inpatient records requested from [facility] again on 08/02 Risk-management made aware of patient again on 08/02 Patient identification confirmed with [facility] Attempted to contact children, CM has an email address and an email was sent over the weekend however there is been no reply 08/07: 2 physician consent for PEG tube obtained and GI consulted for PEG tube placement 08/09: PEG tube placed, resume tube feeds within 4 hours [facility] in the process of assuming guardianship over the patient for placement History Interval history: 60-year-old female patient with schizoaffective disorder with active hallucinations and confusion presented from [place] for altered mental status and poor intake on 07/13. She was found to have rhabdomyolysis and electrolyte imbalances. She then developed C. difficile diarrhea and she has completed her regimen of p.o. vancomycin from 07/20-08/03. Patient remains in catatonic state does not follow any commands and is nonverbal. She had a Dobbhoff tube in place with tube feeds infusing. No acute events reported overnight. Patient was found in the [facility] records and her family has been contacted via email because we do not have a phone number over the weekend with no response. No acute events reported overnight. 07/13; patient's CK levels trending down on 1678, continue IV hydration patient is more alert at times, hallucinating, Noncommunicative, severe hypokalemia, replace per protocol 9/12; potassium level significantly improved today to 3.2, replenish per protocol. CK levels trending down 828, continue IV hydration, monitor electrolytes 07/15; patient refused potassium yesterday today potassium levels again 2.7 We will add KCl to IV fluids, and IV K riders, monitor electrolytes. CK level 425. Refusing to eat confused noncommunicative. Possible inpatient psych admission when medically stable 07/16; rhabdomyolysis resolved, mild electrolyte imbalances, if corrected medically stable for inpatient psych placement 07/17: replete K and phosphate. repeat CBc BMP tomorrow. White count needs to be < 10 for inpt psych admission 07/18: cont to have mildly elevated white count, c/o loose stool. will check for C. def - start flagyl and cipro 07/19: White count normal today. change medications to Po. medically stable to go for inpt psych unit. 07/20; positive for C. def. patient not eating properly, refusing meds time to time. Psych now recommended outpt f/u. CM working on placement. Patient remains nonverbal, does not follow any commend and not giving any personal info. 07/21; K 2.0 today, cont to replete, follow BMP, patient remains nonverbal and not cooperative. refuses to eat and meds. cont d51/2NS. if condition doesnot improve will consider TF 07/22: Potassium level persistently remains low, magnesium 1.6 today. Will replete magnesium and potassium. Patient refusing meds and not eating at all per RN report. Totally noncooperative during the encounternot respond to any question. Keeps her eye closing and covering her face with her forearm. Will order for tube feeding and Dobbhoff tube. Continue to follow. We will also add Megace to boost appetite. 07/23: started on TF, follow BMP, change iv fluid to 1/2 NS. patient remains nonverbal 07/24; clinically unchanged, replete K, iv fluid and TF. reconsult psych as patient remains in catatonic phase 07/25: psych recommendation noted, continue tube feeding, continue to replete electrolytes as needed, follow BMP. I strongly believe her severe electrolytes derangement and encephalopathy related to her catatonia, poor oral intake other than any underlying medical conditions. There is no family contact in file, no home address available, patient appeared to be unfunded. club manager working on placement. 07/26: psych recommendation noted, continue tube feeding, continue to replete electrolytes as needed, follow BMP. I strongly believe her severe electrolytes derangement and encephalopathy related to her catatonia, poor oral intake other than any underlying medical conditions. There is no family contact in file, no home address available, patient appeared to be unfunded. club manager working on placement. 07/27; continue with tube feeding. There is no family contact in file, no home address available, patient appeared to be unfunded. Case management is following. 07/28; patient still on tube feeding, patient is noncommunicative. I believe her condition is related to her catatonia. Psych is following her. Currently her electrolytes are corrected. There is no family contact in file, no home address available, patient appeared to be unfunded. Case management is following. 07/29 patient is nonverbal, eyes open does not follow simple commands,, still having low-grade fever T-max 100 degrees,, lab results reviewed discussed with RN- still has loose stools, case management specialist notes reviewed, unable to contact zaina bradshaw 07/30 no acute events overnight, diarrhea improved, stop IV fluids, disposition to be decided 07/31: client sales and service officer presented to the bedside to attempt to fingerprint the patient to identify her. However his machine was not working 08/01:' Per case management specialist note [facility] [employer] has been contacted to help in identifying the patient. On officer is to report to bedside and was instructed to call the case management specialist upon arrival. 08/02/2020 still has diarrhea 08/03/2020 diarrhea improving. Today is the last day of vancomycin 08/04/2020 patient has no diarrhea 08/05: retail shift leader RN reported patient had a seizure overnight, Ativan was ordered however was not administered because according to the dayshift RN he was reported that the patient "did not need the medication because she was not having a seizure at the moment". Patient remained hyponatremic and hypochloremic and after conversing with the nurse patient was not getting her prescribed dose FWF for hyponatremia which was corrected 08/06: Electrolyte imbalance discontinue, patient still catatonic 08/07: Electrolyte imbalances continue, to physician consent for PEG tube obtained and GI consulted 08/08: PEG scheduled for 08/09 08/09: s/p PEG placement with GI, hyperkalemic (potassium 5.2) s/p IA Kayexalate. 08/11; patient is on PEG tube feeding. C. difficile treated and resolved. Patient still in catatonic state. Pending guardianship. 08/12/2020 patient on PEG tube feeding. Guardianship pending. Pending placement. Hospitalist Physical - Physical exam Narrative exam: General appearance: Present: no acute distress, other (Nonverbal, awake) - EENT Eyes: Present: PERRL - Neck Neck: Present: supple, normal ROM - Respiratory Respiratory effort: normal Respiratory: bilateral: CTA - Cardiovascular Rhythm: regular Heart Sounds: Present: S1 & S2. Absent: systolic murmur, diastolic murmur - Extremities Extremities: no ischemia, pulses intact, pulses symmetrical, No edema, normal temperature, normal color, Full ROM Peripheral Pulses: within normal limits - Abdominal General gastrointestinal: soft, non-tender, non-distended, normal bowel sounds - Integumentary Integumentary: Present: clear, warm, dry - Psychiatric Psychiatric: other (Patient is nonverbal, does not follow any commands however does withdraw to pain to all 4 extremities) - Neurologic Neurologic: moves all extremities (spontaneously) - Constitutional Vitals: Temp Pulse Resp BP Pulse Ox 98.4 F 91 H 18 133/79 98 08/13/20 04:35 08/13/20 04:35 08/13/20 04:35 08/13/20 04:35 08/13/20 04:35 General appearance: Present: no acute distress, well-nourished HEART Score - HEART Score Risk factors: 1-2 risk factors Troponin: Troponin T < 0.010 ng/mL (0.00-0.029) 07/11/20 21:17 Troponin: < normal limit - Critical Actions Critical Actions: 0-3 pts:0.9-1.7%risk of adverse cardiac event.Candidate for discharge Results - Labs CBC & Chem 7: 08/09/20 07:05 08/10/20 13:00 Labs: Laboratory Last Values WBC 10.9 K/mm3 (4.5-11.0) 08/09/20 07:05 RBC 4.06 M/mm3 (3.65-5.03) 08/09/20 07:05 Hgb 14.0 gm/dl (10.1-14.3) 08/09/20 07:05 Hct 38.9 % (30.3-42.9) D 08/09/20 07:05 MCV 96 fl (79-97) 08/09/20 07:05 MCH 34 pg (28-32) H 08/09/20 07:05 MCHC 36 % (30-34) H 08/09/20 07:05 RDW 14.6 % (13.2-15.2) 08/09/20 07:05 Plt Count 539 K/mm3 (140-440) H 08/09/20 07:05 Lymph % (Auto) 21.6 % (13.4-35.0) 07/26/20 07:30 [place] % (Auto) 6.2 % (0.0-7.3) 07/26/20 07:30 Eos % (Auto) 0.5 % (0.0-4.3) 07/26/20 07:30 Baso % (Auto) 0.3 % (0.0-1.8) 07/26/20 07:30 Lymph # (Auto) 2.0 K/mm3 (1.2-5.4) 07/26/20 07:30 [place] # (Auto) 0.6 K/mm3 (0.0-0.8) 07/26/20 07:30 Eos # (Auto) 0.1 K/mm3 (0.0-0.4) 07/26/20 07:30 Baso # (Auto) 0.0 K/mm3 (0.0-0.1) 07/26/20 07:30 Seg Neutrophils % 71.4 % (40.0-70.0) H 07/26/20 07:30 Seg Neutrophils # 6.8 K/mm3 (1.8-7.7) 07/26/20 07:30 PT 11.7 Sec. (12.2-14.9) L 08/07/20 15:47 INR 0.84 (0.87-1.13) L 08/07/20 15:47 Sodium 141 mmol/L (137-145) 08/10/20 13:00 Potassium 3.9 mmol/L (3.6-5.0) D 08/10/20 13:00 Chloride 101.7 mmol/L (98-107) 08/10/20 13:00 Carbon Dioxide 21 mmol/L (22-30) L 08/10/20 13:00 Anion Gap 22 mmol/L 08/10/20 13:00 BUN 9 mg/dL (7-17) 08/10/20 13:00 Creatinine 0.3 mg/dL (0.6-1.2) L 08/10/20 13:00 Estimated GFR > 60 ml/min 08/10/20 13:00 BUN/Creatinine Ratio 30 % 08/10/20 13:00 Glucose 91 mg/dL (65-100) 08/10/20 13:00 POC Glucose 105 (70-105) 08/13/20 11:46 Lactic Acid 1.50 mmol/L (0.7-2.0) 07/12/20 00:04 Phosphorus 3.10 mg/dL (2.5-4.5) 07/24/20 06:00 Magnesium 2.10 mg/dL (1.7-2.3) 07/24/20 06:00 Calcium 8.6 mg/dL (8.4-10.2) 08/10/20 13:00 Direct Bilirubin < 0.2 mg/dL (0-0.2) 07/13/20 09:33 Ammonia 28.0 umol/L (25-60) 07/11/20 21:17 Total Bilirubin 0.40 mg/dL (0.1-1.2) 08/06/20 08:59 Total Creatine Kinase 102 units/L (30-135) 07/17/20 05:21 CK-MB (CK-2) 9.2 ng/mL (0.0-4.0) H 07/12/20 15:13 AST 63 units/L (5-40) H 08/06/20 08:59 ALT 41 units/L (7-56) 08/06/20 08:59 CK-MB (CK-2) Rel Index 0.4 (0-4) 07/12/20 15:13 Alkaline Phosphatase 59 units/L (35-129) 08/06/20 08:59 Troponin T < 0.010 ng/mL (0.00-0.029) 07/11/20 21:17 Total Protein 6.6 g/dL (6.3-8.2) 08/06/20 08:59 Albumin 3.8 g/dL (3.9-5) L 08/06/20 08:59 Albumin/Globulin Ratio 1.4 % 08/06/20 08:59 Urine Color Yellow (Yellow) 07/11/20 Unknown Urine Turbidity Clear (Clear) 07/11/20 Unknown Urine pH 6.0 (5.0-7.0) 07/11/20 Unknown Ur Specific [place] 1.023 (1.003-1.030) 07/11/20 Unknown Urine Protein 30 mg/dl mg/dL (Negative) 07/11/20 Unknown Urine Glucose (UA) Neg mg/dL (Negative) 07/11/20 Unknown Urine Ketones Tr mg/dL (Negative) 07/11/20 Unknown Urine Blood Neg (Negative) 07/11/20 Unknown Urine Nitrite Neg (Negative) 07/11/20 Unknown Urine Bilirubin Neg (Negative) 07/11/20 Unknown Urine Urobilinogen 2.0 mg/dL (<2.0) 07/11/20 Unknown Ur Leukocyte Esterase Neg (Negative) 07/11/20 Unknown Urine WBC (Auto) 2.0 /HPF (0.0-6.0) 07/11/20 Unknown Urine RBC (Auto) 3.0 /HPF (0.0-6.0) 07/11/20 Unknown U Epithel Cells (Auto) 3.0 /HPF (0-13.0) 07/11/20 Unknown Urine Mucus 3+ /HPF 07/11/20 Unknown Salicylates < 0.3 mg/dL (2.8-20.0) L 07/11/20 21:17 Urine Opiates Screen Presumptive negative 07/11/20 Unknown Urine Methadone Screen Presumptive negative 07/11/20 Unknown Acetaminophen 5.0 ug/mL (10.0-30.0) L 07/11/20 21:17 Ur Barbiturates Screen Presumptive negative 07/11/20 Unknown Valproic Acid 7.7 ug/mL (50-100) L 07/19/20 08:12 Ur Phencyclidine Scrn Presumptive negative 07/11/20 Unknown Ur Amphetamines Screen Presumptive negative 07/11/20 Unknown U Benzodiazepines Scrn Presumptive negative 07/11/20 Unknown Urine Cocaine Screen Presumptive negative 07/11/20 Unknown U Marijuana (THC) Screen Presumptive negative 07/11/20 Unknown Drugs of Abuse Note Disclamer 07/11/20 Unknown C. difficile Tox (PCR) Positive (Negative) 07/19/20 18:51 [place]/IV: Voiding Method External Female Catheter IV Catheter Type [Right INT / Saline Lock Antecubital] IV Catheter Type [Left Forearm INT / Saline Lock ] IV Catheter Type [Right Hand] INT / Saline Lock IV Catheter Type [Right INT / Saline Lock Forearm] IV Catheter Type [Left Hand] INT / Saline Lock Active Medications - Current Medications Current Medications: Generic Name Dose Route Start Last Admin Trade Name Freq PRN Reason Stop Dose Admin Acetaminophen 650 mg 07/12/20 01:05 07/27/20 01:57 Tylenol IA 650 mg Q4H PRN Administration Fever >101 Lipase/Protease/Amylase 1 each 07/22/20 07:44 Pancreaze 10,500 Unit FEEDTUBE PRN PRN For Clogged Feeding Tube Haloperidol Lactate 5 mg 07/18/20 13:15 07/21/20 22:06 Haldol IM 5 mg Q6H PRN Administration Agitation Heparin Sodium (Porcine) 5,000 unit 07/12/20 10:00 08/13/20 10:11 Heparin SUB-Q 5,000 unit Q8H KEITH Administration Insulin Human Regular 0 unit 07/23/20 09:00 08/13/20 12:24 Humulin R SUB-Q Not Given Q6HR [facility] Protocol Lorazepam 2 mg 08/06/20 05:05 08/12/20 17:37 Ativan IV 2 mg Q4H PRN Administration Agitation Megestrol Acetate 400 mg 07/22/20 10:00 08/13/20 10:11 Megestrol PO 400 mg QDAY KEITH Administration Olanzapine 2.5 mg 07/25/20 22:00 08/12/20 22:28 Zyprexa PO 2.5 mg QHS EKITH Administration Ondansetron HCl 4 mg 07/12/20 01:06 Zofran IV Q8H PRN Nausea And Vomiting Simple Syrup 15 ml 07/22/20 07:44 Simple Syrup FEEDTUBE PRN PRN Hypoglycemia Simple Syrup 30 ml 07/22/20 07:44 Simple Syrup FEEDTUBE PRN PRN Hypoglycemia Sodium Bicarbonate 325 mg 07/22/20 07:44 Sodium Bicarbonate FEEDTUBE PRN PRN For Clogged Feeding Tube Valproic Acid 250 mg 07/25/20 22:00 08/13/20 10:11 Depakentye Liq FEEDTUBE 250 mg BID KEITH Administration Nutrition/Malnutrition Assess - Dietary Evaluation Nutrition/Malnutrition Findings: Nutrition Notes Start: 07/12/20 11:40 Freq: Status: Active Protocol: Document 08/13/20 13:07 MAHAD (Rec: 08/13/20 13:09 [id number]) Nutrition Notes Initial or Follow up Reassessment Other Pertinent Diagnosis C. diff (+), AMS, Rhabdomyolysis, dehydration, Hx of stroke Current Diet NPO Labs/Tests No new labs Pertinent Medications Reviewed Height 5 ft Weight 52 kg [place] Body Weight (kg) 45.45 BMI 22.4 Subjective/Other Information Pt tolerating TF at goal. Percent of energy/protein needs met: 100%/90% Burn Absent Trauma Absent GI Symptoms None Current % PO Negligible Minimum of two criteria No Energy Intake (severe) < or equal to 50% Estimated Energy Requirement > or equal to 5 days #1 Nutrition Diagnosis Inadequate oral intake Diagnosis Progress(for reassessment Continues documentation) Is patient on ventilator? No Is Patient Ambulatory and/or Out of Bed No REE-([place]-St. Jeor-confined to bed) 1213.032 Calculation Used for [facility]ations [facility] Additional Notes Protein Needs 59-70g (1-1.2g/ kg) Fluid Needs: 1ml/kcal Nutrition Intervention Change Diet Order: Continue TF Nutrition Support: Osmolite 1.5 at 35ml/hr. Flush 100ml q4hr Kcal 1,260 Protein (gm) 53 Fluid (mL) 640 Goal #1 TF tolerance Goal #2 Meet a least 80% of energy and protein needs via TF Anticipated Discharge Needs: unable to determine at this time Follow-Up By: 08/15/20 Additional Comments FU for TF tolerance
[2020-08-14] MEDS: INSULIN REGULAR, HUMAN 100 UNIT/ML 3ML VIAL SUB-Q SCH ×4 (00:01→18:05)
[2020-08-14] MEDS: HEPARIN 5,000 UNIT/1 ML VIAL SUB-Q SCH ×3 (01:54→18:12)
--- NOTE | 2020-08-14 07:28 | Progress Note ---
Assessment and Plan Assessment and plan: (1) Schizoaffective disorder Current Visit: Yes Status: Chronic Plan to address problem: Patient admitted catatonic state and is nonverbal at this time following commands Psychiatric consult completed; does not recommend inpatient at this time Haldol as needed, Depakote, Zyprexa Supportive care (2) Metabolic encephalopathy Current Visit: Yes Status: Acute Plan to address problem: Multifactorial , schizoaffective disorder Patient came from [place], psych evaluation noted Psych now recommended for outpt f/u Continue NG tube feedings (3) DVT prophylaxis Current Visit: Yes Status: Acute Plan to address problem: SCDs to bilateral lower extremities while in bed Heparin subcu (4) Discharge planning issues Current Visit: Yes Status: Acute Plan to address problem: Patient's identity is not confirmed [facility] has been contacted to aid in identification however unsuccessful [facility] have been contacted Inpatient records requested from [facility] again on 08/02 Risk-management made aware of patient again on 08/02 Patient identification confirmed with [facility] Attempted to contact children, CM has an email address and an email was sent over the weekend however there is been no reply 08/07: 2 physician consent for PEG tube obtained and GI consulted for PEG tube placement 08/09: PEG tube placed, resume tube feeds within 4 hours [facility] in the process of assuming guardianship over the patient for placement History Interval history: 60-year-old female patient with schizoaffective disorder with active hallucinations and confusion presented from [place] for altered mental status and poor intake on 07/13. She was found to have rhabdomyolysis and electrolyte imbalances. She then developed C. difficile diarrhea and she has completed her regimen of p.o. vancomycin from 07/20-08/03. Patient remains in catatonic state does not follow any commands and is nonverbal. She had a Dobbhoff tube in place with tube feeds infusing. No acute events reported overnight. Patient was found in the [facility] records and her family has been contacted via email because we do not have a phone number over the weekend with no response. No acute events reported overnight. 07/13; patient's CK levels trending down on 1678, continue IV hydration patient is more alert at times, hallucinating, Noncommunicative, severe hypokalemia, replace per protocol 07/14; potassium level significantly improved today to 3.2, replenish per protocol. CK levels trending down 828, continue IV hydration, monitor electrolytes 07/15; patient refused potassium yesterday today potassium levels again 2.7 We will add KCl to IV fluids, and IV K riders, monitor electrolytes. CK level 425. Refusing to eat confused noncommunicative. Possible inpatient psych admission when medically stable 07/16; rhabdomyolysis resolved, mild electrolyte imbalances, if corrected medically stable for inpatient psych placement 07/17: replete K and phosphate. repeat CBc BMP tomorrow. White count needs to be < 10 for inpt psych admission 07/18: cont to have mildly elevated white count, c/o loose stool. will check for C. def - start flagyl and cipro 07/19: White count normal today. change medications to Po. medically stable to go for inpt psych unit. 07/20; positive for C. def. patient not eating properly, refusing meds time to time. Psych now recommended outpt f/u. CM working on placement. Patient remains nonverbal, does not follow any commend and not giving any personal info. 07/21; K 2.0 today, cont to replete, follow BMP, patient remains nonverbal and not cooperative. refuses to eat and meds. cont d51/2NS. if condition doesnot improve will consider TF 07/22: Potassium level persistently remains low, magnesium 1.6 today. Will replete magnesium and potassium. Patient refusing meds and not eating at all per RN report. Totally noncooperative during the encounternot respond to any question. Keeps her eye closing and covering her face with her forearm. Will order for tube feeding and Dobbhoff tube. Continue to follow. We will also add Megace to boost appetite. 07/23: started on TF, follow BMP, change iv fluid to 1/2 NS. patient remains nonverbal 07/24; clinically unchanged, replete K, iv fluid and TF. reconsult psych as patient remains in catatonic phase 07/25: psych recommendation noted, continue tube feeding, continue to replete electrolytes as needed, follow BMP. I strongly believe her severe electrolytes derangement and encephalopathy related to her catatonia, poor oral intake other than any underlying medical conditions. There is no family contact in file, no home address available, patient appeared to be unfunded. outreach manager working on placement. 07/26: psych recommendation noted, continue tube feeding, continue to replete electrolytes as needed, follow BMP. I strongly believe her severe electrolytes derangement and encephalopathy related to her catatonia, poor oral intake other than any underlying medical conditions. There is no family contact in file, no home address available, patient appeared to be unfunded. outreach manager working on placement. 07/27; continue with tube feeding. There is no family contact in file, no home address available, patient appeared to be unfunded. Case management is following. 07/28; patient still on tube feeding, patient is noncommunicative. I believe her condition is related to her catatonia. Psych is following her. Currently her electrolytes are corrected. There is no family contact in file, no home address available, patient appeared to be unfunded. Case management is following. 07/29 patient is nonverbal, eyes open does not follow simple commands,, still having low-grade fever T-max 100 degrees,, lab results reviewed discussed with RN- still has loose stools, child support case officer notes reviewed, unable to contact family 07/30 no acute events overnight, diarrhea improved, stop IV fluids, disposition to be decided 07/31: child support case officer presented to the bedside to attempt to fingerprint the patient to identify her. However his machine was not working 08/01:' Per child support case officer note [facility] has been contacted to help in identifying the patient. On officer is to report to bedside and was instructed to call the child support case officer upon arrival. 08/02/2020 still has diarrhea 08/03/2020 diarrhea improving. Today is the last day of vancomycin 08/04/2020 patient has no diarrhea 08/05: car shifter RN reported patient had a seizure overnight, Ativan was ordered however was not administered because according to the dayshift RN he was reported that the patient "did not need the medication because she was not hav ing a seizure at the moment". Patient remained hyponatremic and hypochloremic and after conversing with the nurse patient was not getting her prescribed dose FWF for hyponatremia which was corrected 08/06: Electrolyte imbalance discontinue, patient still catatonic 08/07: Electrolyte imbalances continue, to physician consent for PEG tube obtained and GI consulted 08/08: PEG scheduled for 08/09 08/09: s/p PEG placement with GI, hyperkalemic (potassium 5.2) s/p AR Kayexalate. 08/11; patient is on PEG tube feeding. C. difficile treated and resolved. Patient still in catatonic state. Pending guardianship. 08/12/2020 patient on PEG tube feeding. Guardianship pending. Pending placement. 08/14/20: This is my first time seeing this patient, quality and futility of care is questionable, patient not following any commands, pupillary reflex noted, will obtain Neurologist input, while awaiting placement. will also recommend ethics consult History Interval history: Patient seen and examined, awake but not responsive, neglects the left side. Hospitalist Physical - Physical exam Narrative exam: General appearance: Present: no acute distress, other (Nonverbal, awake) - EENT Eyes: Present: PERRL, neglect of the left - Neck Neck: Present: supple, normal ROM - Respiratory Respiratory effort: normal Respiratory: bilateral: CTA - Cardiovascular Rhythm: regular Heart Sounds: Present: S1 & S2. Absent: systolic murmur, diastolic murmur - Extremities Extremities: no ischemia, pulses intact, pulses symmetrical, No edema, normal temperature, normal color, Full ROM Peripheral Pulses: within normal limits - Abdominal General gastrointestinal: soft, non-tender, non-distended, normal bowel sounds - Integumentary Integumentary: Present: clear, warm, dry - Psychiatric Psychiatric: other (Patient is nonverbal, does not follow any commands however does withdraw to pain to all 4 extremities) - Neurologic Neurologic: moves all extremities (spontaneously) - Constitutional Vitals: Temp Pulse Resp BP Pulse Ox 98.0 F 91 H 16 110/70 98 08/13/20 22:21 08/13/20 22:21 08/13/20 22:21 08/13/20 22:21 08/13/20 22:21 General appearance: Present: no acute distress, well-nourished HEART Score - HEART Score Risk factors: 1-2 risk factors Troponin: Troponin T < 0.010 ng/mL (0.00-0.029) 07/11/20 21:17 Troponin: < normal limit - Critical Actions Critical Actions: 0-3 pts:0.9-1.7%risk of adverse cardiac event.Candidate for discharge Results - Labs CBC & Chem 7: 08/09/20 07:05 08/10/20 13:00 Labs: Laboratory Last Values WBC 10.9 K/mm3 (4.5-11.0) 08/09/20 07:05 RBC 4.06 M/mm3 (3.65-5.03) 08/09/20 07:05 Hgb 14.0 gm/dl (10.1-14.3) 08/09/20 07:05 Hct 38.9 % (30.3-42.9) D 08/09/20 07:05 MCV 96 fl (79-97) 08/09/20 07:05 MCH 34 pg (28-32) H 08/09/20 07:05 MCHC 36 % (30-34) H 08/09/20 07:05 RDW 14.6 % (13.2-15.2) 08/09/20 07:05 Plt Count 539 K/mm3 (140-440) H 08/09/20 07:05 Lymph % (Auto) 21.6 % (13.4-35.0) 07/26/20 07:30 [place] % (Auto) 6.2 % (0.0-7.3) 07/26/20 07:30 Eos % (Auto) 0.5 % (0.0-4.3) 07/26/20 07:30 Baso % (Auto) 0.3 % (0.0-1.8) 07/26/20 07:30 Lymph # (Auto) 2.0 K/mm3 (1.2-5.4) 07/26/20 07:30 [place] # (Auto) 0.6 K/mm3 (0.0-0.8) 07/26/20 07:30 Eos # (Auto) 0.1 K/mm3 (0.0-0.4) 07/26/20 07:30 Baso # (Auto) 0.0 K/mm3 (0.0-0.1) 07/26/20 07:30 Seg Neutrophils % 71.4 % (40.0-70.0) H 07/26/20 07:30 Seg Neutrophils # 6.8 K/mm3 (1.8-7.7) 07/26/20 07:30 PT 11.7 Sec. (12.2-14.9) L 08/07/20 15:47 INR 0.84 (0.87-1.13) L 08/07/20 15:47 Sodium 141 mmol/L (137-145) 08/10/20 13:00 Potassium 3.9 mmol/L (3.6-5.0) D 08/10/20 13:00 Chloride 101.7 mmol/L (98-107) 08/10/20 13:00 Carbon Dioxide 21 mmol/L (22-30) L 08/10/20 13:00 Anion Gap 22 mmol/L 08/10/20 13:00 BUN 9 mg/dL (7-17) 08/10/20 13:00 Creatinine 0.3 mg/dL (0.6-1.2) L 08/10/20 13:00 Estimated GFR > 60 ml/min 08/10/20 13:00 BUN/Creatinine Ratio 30 % 08/10/20 13:00 Glucose 91 mg/dL (65-100) 08/10/20 13:00 POC Glucose 122 (70-105) H 08/14/20 05:13 Lactic Acid 1.50 mmol/L (0.7-2.0) 07/12/20 00:04 Phosphorus 3.10 mg/dL (2.5-4.5) 07/24/20 06:00 Magnesium 2.10 mg/dL (1.7-2.3) 07/24/20 06:00 Calcium 8.6 mg/dL (8.4-10.2) 08/10/20 13:00 Direct Bilirubin < 0.2 mg/dL (0-0.2) 07/13/20 09:33 Ammonia 28.0 umol/L (25-60) 07/11/20 21:17 Total Bilirubin 0.40 mg/dL (0.1-1.2) 08/06/20 08:59 Total Creatine Kinase 102 units/L (30-135) 07/17/20 05:21 CK-MB (CK-2) 9.2 ng/mL (0.0-4.0) H 07/12/20 15:13 AST 63 units/L (5-40) H 08/06/20 08:59 ALT 41 units/L (7-56) 08/06/20 08:59 CK-MB (CK-2) Rel Index 0.4 (0-4) 07/12/20 15:13 Alkaline Phosphatase 59 units/L (35-129) 08/06/20 08:59 Troponin T < 0.010 ng/mL (0.00-0.029) 07/11/20 21:17 Total Protein 6.6 g/dL (6.3-8.2) 08/06/20 08:59 Albumin 3.8 g/dL (3.9-5) L 08/06/20 08:59 Albumin/Globulin Ratio 1.4 % 08/06/20 08:59 Urine Color Yellow (Yellow) 07/11/20 Unknown Urine Turbidity Clear (Clear) 07/11/20 Unknown Urine pH 6.0 (5.0-7.0) 07/11/20 Unknown Ur Specific Radiant 1.023 (1.003-1.030) 07/11/20 Unknown Urine Protein 30 mg/dl mg/dL (Negative) 07/11/20 Unknown Urine Glucose (UA) Neg mg/dL (Negative) 07/11/20 Unknown Urine Ketones Tr mg/dL (Negative) 07/11/20 Unknown Urine Blood Neg (Negative) 07/11/20 Unknown Urine Nitrite Neg (Negative) 07/11/20 Unknown Urine Bilirubin Neg (Negative) 07/11/20 Unknown Urine Urobilinogen 2.0 mg/dL (<2.0) 07/11/20 Unknown Ur Leukocyte Esterase Neg (Negative) 07/11/20 Unknown Urine WBC (Auto) 2.0 /HPF (0.0-6.0) 07/11/20 Unknown Urine RBC (Auto) 3.0 /HPF (0.0-6.0) 07/11/20 Unknown U Epithel Cells (Auto) 3.0 /HPF (0-13.0) 07/11/20 Unknown Urine Mucus 3+ /HPF 07/11/20 Unknown Salicylates < 0.3 mg/dL (2.8-20.0) L 07/11/20 21:17 Urine Opiates Screen Presumptive negative 07/11/20 Unknown Urine Methadone Screen Presumptive negative 07/11/20 Unknown Acetaminophen 5.0 ug/mL (10.0-30.0) L 07/11/20 21:17 Ur Barbiturates Screen Presumptive negative 07/11/20 Unknown Valproic Acid 7.7 ug/mL (50-100) L 07/19/20 08:12 Ur Phencyclidine Scrn Presumptive negative 07/11/20 Unknown Ur Amphetamines Screen Presumptive negative 07/11/20 Unknown U Benzodiazepines Scrn Presumptive negative 07/11/20 Unknown Urine Cocaine Screen Presumptive negative 07/11/20 Unknown U Marijuana (THC) Screen Presumptive negative 07/11/20 Unknown Drugs of Abuse Note Disclamer 07/11/20 Unknown C. difficile Tox (PCR) Positive (Negative) 07/19/20 18:51 [place]/IV: Voiding Method Diaper IV Catheter Type [Right INT / Saline Lock Antecubital] IV Catheter Type [Left Forearm INT / Saline Lock ] IV Catheter Type [Right Hand] INT / Saline Lock IV Catheter Type [Right INT / Saline Lock Forearm] IV Catheter Type [Left Hand] INT / Saline Lock Active Medications - Current Medications Current Medications: Generic Name Dose Route Start Last Admin Trade Name Freq PRN Reason Stop Dose Admin Acetaminophen 650 mg 07/12/20 01:05 07/27/20 01:57 Tylenol AR 650 mg Q4H PRN Administration Fever >101 Lipase/Protease/Amylase 1 each 07/22/20 07:[address] 10,500 Unit FEEDTUBE PRN PRN For Clogged Feeding Tube Haloperidol Lactate 5 mg 07/18/20 13:15 07/21/20 22:06 Haldol IM 5 mg Q6H PRN Administration Agitation Heparin Sodium (Porcine) 5,000 unit 07/12/20 10:00 08/14/20 01:54 Heparin SUB-Q 5,000 unit Q8H KEITH Administration Insulin Human Regular 0 unit 07/23/20 09:00 08/14/20 06:18 Humulin R SUB-Q Not Given Q6HR KEITH Protocol Lorazepam 2 mg 08/06/20 05:05 08/12/20 17:37 Ativan IV 2 mg Q4H PRN Administration Agitation Megestrol Acetate 400 mg 07/22/20 10:00 08/13/20 10:11 Megestrol PO 400 mg QDAY KEITH Administration Olanzapine 2.5 mg 07/25/20 22:00 08/13/20 22:18 Zyprexa PO 2.5 mg QHS KEITH Administration Ondansetron HCl 4 mg 07/12/20 01:06 Zofran IV Q8H PRN Nausea And Vomiting Simple Syrup 15 ml 07/22/20 07:44 Simple Syrup FEEDTUBE PRN PRN Hypoglycemia Simple Syrup 30 ml 07/22/20 07:44 Simple Syrup FEEDTUBE PRN PRN Hypoglycemia Sodium Bicarbonate 325 mg 07/22/20 07:44 Sodium Bicarbonate FEEDTUBE PRN PRN For Clogged Feeding Tube Valproic Acid 250 mg 07/25/20 22:00 08/13/20 22:18 Depakene Liq FEEDTUBE 250 mg BID KEITH Administration Nutrition/Malnutrition Assess - Dietary Evaluation Nutrition/Malnutrition Findings: Nutrition Notes Start: 07/12/20 11:40 Freq: Status: Active Protocol: Document 08/13/20 13:07 (Rec: 08/13/20 13:09 [id number]) Nutrition Notes Initial or Follow up Reassessment Other Pertinent Diagnosis C. diff (+), AMS, Rhabdomyolysis, dehydration, Hx of stroke Current Diet NPO Labs/Tests No new labs Pertinent Medications Reviewed Height 5 ft Weight 52 kg [place] Body Weight (kg) 45.45 BMI 22.4 Subjective/Other Information Pt tolerating TF at goal. Percent of energy/protein needs met: 100%/90% Burn Absent Trauma Absent GI Symptoms None Current % PO Negligible Minimum of two criteria No Energy Intake (severe) < or equal to 50% Estimated Energy Requirement > or equal to 5 days #1 Nutrition Diagnosis Inadequate oral intake Diagnosis Progress(for reassessment Continues documentation) Is patient on ventilator? No Is Patient Ambulatory and/or Out of Bed No REE-([facility]-confined to bed) 1213.032 Calculation Used for Recommendations [facility] Additional Notes Protein Needs 59-70g (1-1.2g/ kg) Fluid Needs: 1ml/kcal Nutrition Intervention Change Diet Order: Continue TF Nutrition Support: Osmolite 1.5 at 35ml/hr. Flush 100ml q4hr Kcal 1,260 Protein (gm) 53 Fluid (mL) 640 Goal #1 TF tolerance Goal #2 Meet a least 80% of energy and protein needs via TF Anticipated Discharge Needs: unable to determine at this time Follow-Up By: 08/15/20 Additional Comments FU for TF tolerance
[2020-08-14] MEDS: VALPROIC ACID 250 MG/5 ML ORAL LIQD FEEDTUBE SCH ×2 (10:25→21:17)
[2020-08-14] MEDS: MEGESTROL 400 MG/10 ML ORAL LIQD PO SCH (10:25)
--- NOTE | 2020-08-14 15:43 | Consultation ---
History of Present Illness Consult date: 08/14/20 History of present illness: 60 yo female with schizoaffective d/o was admitted (as a transfer) on 07/13/2020 to [facility] with noted rhabdomyolysis, then C. Difficile diarrhea, and the need for a PEG tube. No known family contacts at present to obtain more medical history. During the hospital course, she has been noted to be "catatonic" throughout the hospital stay and with occasional low-grade fever. The patient has been evaluated by psychiatry. Patient is not able to provide any history at present. Past History Past Medical History: stroke (PSYCHIATRY), other Past Surgical History: No surgical history Social history: no significant social history Family history: no significant family history Medications and Allergies Allergies Allergy/AdvReac Type Severity Reaction Status Date / Time Unable to Assess Allergy Unverified 07/11/20 21:47 Home Medications Medication Instructions Recorded Confirmed Last Taken Type No Known Home Medications [No 07/18/20 07/18/20 Unknown History Reported Home Medications] Active Meds: Active Medications Acetaminophen (Tylenol) 650 mg ID Q4H PRN PRN Reason: Fever >101 Last Admin: 07/27/20 01:57 Dose: 650 mg Documented by: Lipase/Protease/Amylase (Pancreaze Dr 10,500 Unit) 1 each FEEDTUBE PRN PRN PRN Reason: For Clogged Feeding Tube Last Admin: 08/14/20 10:25 Dose: 1 each Documented by: Haloperidol Lactate (Haldol) 5 mg IM Q6H PRN PRN Reason: Agitation Last Admin: 07/21/20 22:06 Dose: 5 mg Documented by: Heparin Sodium (Porcine) (Heparin) 5,000 unit SUB-Q Q8H KEITH Last Admin: 08/14/20 10:27 Dose: 5,000 unit Documented by: Insulin Human Regular (Humulin R) 0 unit SUB-Q Q6HR KEITH; Protocol Last Admin: 08/14/20 12:15 Dose: Not Given Documented by: Lorazepam (Ativan) 2 mg IV Q4H PRN PRN Reason: Agitation Last Admin: 08/12/20 17:37 Dose: 2 mg Documented by: Megestrol Acetate (Megestrol) 400 mg PO QDAY KEITH Last Admin: 08/14/20 10:25 Dose: 400 mg Documented by: Olanzapine (Zyprexa) 2.5 mg PO QHS [facility] Last Admin: 08/13/20 22:18 Dose: 2.5 mg Documented by: Ondansetron HCl (Zofran) 4 mg IV Q8H PRN PRN Reason: Nausea And Vomiting Simple Syrup (Simple Syrup) 15 ml FEEDTUBE PRN PRN PRN Reason: Hypoglycemia Simple Syrup (Simple Syrup) 30 ml FEEDTUBE PRN PRN PRN Reason: Hypoglycemia Sodium Bicarbonate (Sodium Bicarbonate) 325 mg FEEDTUBE PRN PRN PRN Reason: For Clogged Feeding Tube Valproic Acid (Depakene Liq) 250 mg FEEDTUBE BID [facility] Last Admin: 08/14/20 10:25 Dose: 250 mg Documented by: Review of Systems ROS unobtainable: due to mental status Physical Examination - Vital Signs Vital Signs: Vital Signs Temp Pulse Resp BP Pulse Ox 98.7 F 103 H 18 140/77 98 07/11/20 21:30 07/11/20 21:30 07/11/20 21:30 07/11/20 21:30 07/11/20 21:30 - Additional Exam Additional Exam: Gen: nad; Head: normocephalic; Eyes: no gaze deviation; no ptosis; ENT: no vocalization; CVS: warm and well-perfused; Pulm: no respiratory distress;; GI: non-distended, +PEG; Ext: no cyanosis or edema appreciated at distal extremities; Skin: no acute rash appreciatedat distal extremities; Heme: no pathologic bruising or ecchymosis at distal extremities; Neuro: alert, CN 2 - PERRL, no blink to visual stimulation, CN 3, 4, 6 - no gaze deviation, CN 5, 7 - open/close eyes spontaneously, CN 8 - hearing grossly intact, CN 9, 10 - no spontaneous swallow noted, CN 11/12 - not following commands; Motor - at least 1/5 at distal left finger, bilateral toes but o/w no movement elicited elsewhere; Sensory - moves to stimuli at left hand and bilateral toes, Cerebellar - not following commands, Gait - deferred secondary to fall risk; NIHSS > 28; Results - Laboratory Findings CBC and BMP: 08/09/20 07:05 08/10/20 13:00 Abnormal Lab Findings: Abnormal Labs 07/11/20 07/11/20 07/11/20 21:17 21:17 21:17 WBC 11.7 H Hgb 14.4 H Hct MCH 35 H MCHC 36 H Plt Count [place] % (Auto) [place] # Seg Neutrophils % 72.1 H Seg Neutrophils # 8.5 H PT INR Sodium Potassium 3.5 L Chloride Carbon Dioxide BUN 20 H Creatinine 0.5 L Glucose 122 H POC Glucose Calcium Phosphorus Magnesium AST 86 H ALT 68 H Total Creatine Kinase 1998 H CK-MB (CK-2) Total Protein Albumin Salicylates < 0.3 L Acetaminophen Valproic Acid 07/11/20 07/12/20 07/12/20 21:17 06:26 15:13 WBC Hgb Hct MCH MCHC Plt Count [place] % (Auto) [place] # Seg Neutrophils % Seg Neutrophils # PT INR Sodium Potassium Chloride Carbon Dioxide BUN Creatinine Glucose POC Glucose Calcium Phosphorus Magnesium AST ALT Total Creatine Kinase 1888 H 1852 H CK-MB (CK-2) 14.8 H 9.2 H Total Protein Albumin Salicylates Acetaminophen 5.0 L Valproic Acid 07/13/20 07/13/20 07/14/20 09:33 09:33 01:52 WBC Hgb Hct MCH MCHC Plt Count [place] % (Auto) [place] # Seg Neutrophils % Seg Neutrophils # PT INR Sodium Potassium 2.8 L* 3.2 L Chloride 107.9 H Carbon Dioxide BUN Creatinine 0.3 L Glucose POC Glucose Calcium 7.9 L D Phosphorus Magnesium AST 83 H ALT Total Creatine Kinase 1678 H CK-MB (CK-2) Total Protein 5.3 L D Albumin 3.0 L Salicylates Acetaminophen Valproic Acid 07/14/20 07/15/20 07/16/20 15:48 05:55 08:26 WBC Hgb Hct MCH MCHC Plt Count [place] % (Auto) [place] # Seg Neutrophils % Seg Neutrophils # PT INR Sodium Potassium 2.7 L* 3.1 L Chloride 108.0 H Carbon Dioxide 16 L D 14 L BUN 4 L Creatinine 0.3 L 0.3 L Glucose POC Glucose Calcium 8.3 L Phosphorus 2.40 L Magnesium AST ALT Total Creatine Kinase 828 H 425 H 188 H CK-MB (CK-2) Total Protein Albumin Salicylates Acetaminophen Valproic Acid 07/17/20 07/17/20 07/18/20 05:21 05:21 05:53 WBC 12.1 H 11.6 H Hgb Hct MCH MCHC Plt Count [place] % (Auto) 7.9 H [place] # 0.9 H Seg Neutrophils % 70.7 H Seg Neutrophils # 8.2 H PT INR Sodium Potassium 3.2 L Chloride Carbon Dioxide BUN Creatinine Glucose POC Glucose Calcium Phosphorus 2.40 L Magnesium AST ALT Total Creatine Kinase CK-MB (CK-2) Total Protein Albumin Salicylates Acetaminophen Valproic Acid 07/18/20 07/19/20 07/19/20 05:53 08:12 08:12 WBC Hgb Hct MCH 33 H MCHC 35 H Plt Count [place] % (Auto) [place] # Seg Neutrophils % Seg Neutrophils # PT INR Sodium Potassium Chloride 108.3 H Carbon Dioxide 17 L BUN 5 L Creatinine 0.3 L Glucose POC Glucose Calcium 8.3 L Phosphorus 2.30 L Magnesium AST ALT Total Creatine Kinase CK-MB (CK-2) Total Protein Albumin Salicylates Acetaminophen Valproic Acid 7.7 L 07/21/20 07/22/20 07/23/20 06:35 06:59 07:27 WBC Hgb Hct MCH MCHC Plt Count [place] % (Auto) [place] # Seg Neutrophils % Seg Neutrophils # PT INR Sodium 146 H Potassium 2.0 L* D 2.2 L* Chloride Carbon Dioxide 32 H BUN 2 L < 1 L < 1 L Creatinine 0.2 L 0.2 L 0.4 L D Glucose 139 H 130 H 574 H* POC Glucose Calcium 8.0 L 7.0 L D Phosphorus Magnesium 1.60 L AST ALT Total Creatine Kinase CK-MB (CK-2) Total Protein Albumin Salicylates Acetaminophen Valproic Acid 07/23/20 07/23/20 07/23/20 10:58 11:16 16:50 WBC Hgb Hct MCH MCHC Plt Count [place] % (Auto) [place] # Seg Neutrophils % Seg Neutrophils # PT INR Sodium 146 H Potassium 3.5 L D Chloride Carbon Dioxide 31 H BUN 2 L Creatinine 0.2 L Glucose 112 H POC Glucose 111 H 137 H Calcium 8.3 L D Phosphorus Magnesium AST ALT Total Creatine Kinase CK-MB (CK-2) Total Protein Albumin Salicylates Acetaminophen Valproic Acid 07/23/20 07/24/20 07/24/20 22:33 06:00 08:47 WBC Hgb Hct MCH MCHC Plt Count [place] % (Auto) [place] # Seg Neutrophils % Seg Neutrophils # PT INR Sodium 146 H Potassium 3.0 L Chloride Carbon Dioxide 31 H BUN Creatinine 0.3 L Glucose 140 H POC Glucose 153 H 118 H Calcium Phosphorus Magnesium AST ALT Total Creatine Kinase CK-MB (CK-2) Total Protein Albumin Salicylates Acetaminophen Valproic Acid 07/24/20 07/24/20 07/25/20 12:04 17:34 05:58 WBC Hgb Hct MCH MCHC Plt Count [place] % (Auto) [place] # Seg Neutrophils % Seg Neutrophils # PT INR Sodium Potassium Chloride Carbon Dioxide BUN Creatinine Glucose POC Glucose 126 H 146 H 141 H Calcium Phosphorus Magnesium AST ALT Total Creatine Kinase CK-MB (CK-2) Total Protein Albumin Salicylates Acetaminophen Valproic Acid 07/25/20 07/25/20 07/25/20 08:09 09:53 12:07 WBC Hgb Hct MCH MCHC Plt Count [place] % (Auto) [place] # Seg Neutrophils % Seg Neutrophils # PT INR Sodium Potassium Chloride Carbon Dioxide BUN Creatinine 0.2 L Glucose 115 H POC Glucose 138 H 131 H Calcium 8.2 L Phosphorus Magnesium AST ALT Total Creatine Kinase CK-MB (CK-2) Total Protein Albumin Salicylates Acetaminophen Valproic Acid 07/25/20 07/25/20 07/26/20 17:35 22:31 05:43 WBC Hgb Hct MCH MCHC Plt Count [place] % (Auto) [place] # Seg Neutrophils % Seg Neutrophils # PT INR Sodium Potassium Chloride Carbon Dioxide BUN Creatinine Glucose POC Glucose 125 H 130 H 153 H Calcium Phosphorus Magnesium AST ALT Total Creatine Kinase CK-MB (CK-2) Total Protein Albumin Salicylates Acetaminophen Valproic Acid 07/26/20 07/26/20 07/26/20 07:30 07:30 12:01 WBC Hgb Hct MCH 33 H MCHC Plt Count 464 H [place] % (Auto) [place] # Seg Neutrophils % 71.4 H Seg Neutrophils # PT INR Sodium Potassium Chloride Carbon Dioxide BUN Creatinine 0.3 L Glucose 144 H POC Glucose 134 H Calcium Phosphorus Magnesium AST ALT Total Creatine Kinase CK-MB (CK-2) Total Protein Albumin Salicylates Acetaminophen Valproic Acid 07/26/20 07/27/20 07/27/20 17:08 06:11 09:25 WBC Hgb Hct MCH MCHC Plt Count [place] % (Auto) [place] # Seg Neutrophils % Seg Neutrophils # PT INR Sodium 136 L Potassium Chloride Carbon Dioxide BUN Creatinine 0.3 L Glucose 120 H POC Glucose 106 H 128 H Calcium Phosphorus Magnesium AST ALT Total Creatine Kinase CK-MB (CK-2) Total Protein Albumin Salicylates Acetaminophen Valproic Acid 07/27/20 07/27/20 07/27/20 12:51 17:41 23:40 WBC Hgb Hct MCH MCHC Plt Count [place] % (Auto) [place] # Seg Neutrophils % Seg Neutrophils # PT INR Sodium Potassium Chloride Carbon Dioxide BUN Creatinine Glucose POC Glucose 124 H 111 H 148 H Calcium Phosphorus Magnesium AST ALT Total Creatine Kinase CK-MB (CK-2) Total Protein Albumin Salicylates Acetaminophen Valproic Acid 07/28/20 07/28/20 07/28/20 05:00 06:14 11:25 WBC Hgb Hct MCH MCHC Plt Count [place] % (Auto) [place] # Seg Neutrophils % Seg Neutrophils # PT INR Sodium 135 L Potassium 5.1 H Chloride Carbon Dioxide 21 L BUN Creatinine 0.3 L Glucose 131 H POC Glucose 161 H 143 H Calcium Phosphorus Magnesium AST ALT Total Creatine Kinase CK-MB (CK-2) Total Protein Albumin Salicylates Acetaminophen Valproic Acid 07/28/20 07/28/20 07/29/20 18:06 23:53 05:36 WBC Hgb Hct MCH MCHC Plt Count [place] % (Auto) [place] # Seg Neutrophils % Seg Neutrophils # PT INR Sodium Potassium Chloride Carbon Dioxide BUN Creatinine 0.3 L Glucose 149 H POC Glucose 160 H 118 H Calcium Phosphorus Magnesium AST ALT Total Creatine Kinase CK-MB (CK-2) Total Protein Albumin Salicylates Acetaminophen Valproic Acid 07/29/20 07/29/20 07/29/20 06:46 12:08 17:29 WBC Hgb Hct MCH MCHC Plt Count [place] % (Auto) [place] # Seg Neutrophils % Seg Neutrophils # PT INR Sodium Potassium Chloride Carbon Dioxide BUN Creatinine Glucose POC Glucose 119 H 126 H 148 H Calcium Phosphorus Magnesium AST ALT Total Creatine Kinase CK-MB (CK-2) Total Protein Albumin Salicylates Acetaminophen Valproic Acid 07/29/20 07/30/20 07/30/20 23:49 05:48 17:48 WBC Hgb Hct MCH MCHC Plt Count [place] % (Auto) [place] # Seg Neutrophils % Seg Neutrophils # PT INR Sodium Potassium Chloride Carbon Dioxide BUN Creatinine Glucose POC Glucose 119 H 119 H 110 H Calcium Phosphorus Magnesium AST ALT Total Creatine Kinase CK-MB (CK-2) Total Protein Albumin Salicylates Acetaminophen Valproic Acid 07/31/20 07/31/20 07/31/20 11:55 12:34 17:18 WBC Hgb Hct MCH MCHC Plt Count [place] % (Auto) [place] # Seg Neutrophils % Seg Neutrophils # PT INR Sodium 134 L Potassium Chloride 97.0 L Carbon Dioxide 21 L BUN 19 H Creatinine 0.3 L Glucose 116 H POC Glucose 119 H 124 H Calcium Phosphorus Magnesium AST ALT Total Creatine Kinase CK-MB (CK-2) Total Protein Albumin Salicylates Acetaminophen Valproic Acid 07/31/20 08/01/20 08/01/20 23:30 06:22 06:45 WBC Hgb Hct MCH MCHC Plt Count [place] % (Auto) [place] # Seg Neutrophils % Seg Neutrophils # PT INR Sodium 136 L Potassium Chloride 97.9 L Carbon Dioxide BUN Creatinine 0.3 L Glucose 122 H POC Glucose 138 H 123 H Calcium Phosphorus Magnesium AST ALT Total Creatine Kinase CK-MB (CK-2) Total Protein Albumin Salicylates Acetaminophen Valproic Acid 08/01/20 08/02/20 08/02/20 18:17 00:51 06:48 WBC Hgb Hct MCH MCHC Plt Count [place] % (Auto) [place] # Seg Neutrophils % Seg Neutrophils # PT INR Sodium Potassium Chloride Carbon Dioxide BUN Creatinine Glucose POC Glucose 111 H 109 H 123 H Calcium Phosphorus Magnesium AST ALT Total Creatine Kinase CK-MB (CK-2) Total Protein Albumin Salicylates Acetaminophen Valproic Acid 08/02/20 08/02/20 08/02/20 12:51 17:55 22:18 WBC Hgb Hct MCH MCHC Plt Count [place] % (Auto) [place] # Seg Neutrophils % Seg Neutrophils # PT INR Sodium Potassium Chloride Carbon Dioxide BUN Creatinine Glucose POC Glucose 135 H 119 H 117 H Calcium Phosphorus Magnesium AST ALT Total Creatine Kinase CK-MB (CK-2) Total Protein Albumin Salicylates Acetaminophen Valproic Acid 08/03/20 08/03/20 08/03/20 05:45 06:05 12:15 WBC Hgb Hct MCH MCHC Plt Count [place] % (Auto) [place] # Seg Neutrophils % Seg Neutrophils # PT INR Sodium 135 L Potassium 5.4 H D Chloride 96.2 L Carbon Dioxide BUN Creatinine 0.4 L Glucose 117 H POC Glucose 109 H 127 H Calcium Phosphorus Magnesium AST ALT Total Creatine Kinase CK-MB (CK-2) Total Protein Albumin Salicylates Acetaminophen Valproic Acid 08/03/20 08/03/20 08/04/20 17:00 22:35 05:59 WBC Hgb Hct MCH MCHC Plt Count [place] % (Auto) [place] # Seg Neutrophils % Seg Neutrophils # PT INR Sodium Potassium Chloride Carbon Dioxide BUN Creatinine Glucose POC Glucose 117 H 114 H 115 H Calcium Phosphorus Magnesium AST ALT Total Creatine Kinase CK-MB (CK-2) Total Protein Albumin Salicylates Acetaminophen Valproic Acid 08/04/20 08/04/20 08/05/20 17:00 23:58 06:33 WBC Hgb Hct MCH MCHC Plt Count [place] % (Auto) [place] # Seg Neutrophils % Seg Neutrophils # PT INR Sodium Potassium Chloride Carbon Dioxide BUN Creatinine Glucose POC Glucose 123 H 110 H 115 H Calcium Phosphorus Magnesium AST ALT Total Creatine Kinase CK-MB (CK-2) Total Protein Albumin Salicylates Acetaminophen Valproic Acid 08/06/20 08/06/20 08/07/20 08:59 12:27 00:39 WBC Hgb Hct MCH MCHC Plt Count [place] % (Auto) [place] # Seg Neutrophils % Seg Neutrophils # PT INR Sodium 133 L Potassium Chloride 97.0 L Carbon Dioxide BUN Creatinine 0.3 L Glucose 130 H POC Glucose 112 H 55 L Calcium Phosphorus Magnesium AST 63 H ALT Total Creatine Kinase CK-MB (CK-2) Total Protein Albumin 3.8 L Salicylates Acetaminophen Valproic Acid 08/07/20 08/07/20 08/07/20 05:36 07:19 07:19 WBC Hgb 15.2 H Hct 45.5 H MCH 33 H MCHC Plt Count 663 H [place] % (Auto) [place] # Seg Neutrophils % Seg Neutrophils # PT INR Sodium 136 L Potassium Chloride 97.9 L Carbon Dioxide BUN Creatinine 0.3 L Glucose 123 H POC Glucose 118 H Calcium Phosphorus Magnesium AST ALT Total Creatine Kinase CK-MB (CK-2) Total Protein Albumin Salicylates Acetaminophen Valproic Acid 08/07/20 08/08/20 08/08/20 15:47 05:24 11:42 WBC Hgb Hct MCH MCHC Plt Count [place] % (Auto) [place] # Seg Neutrophils % Seg Neutrophils # PT 11.7 L INR 0.84 L Sodium Potassium Chloride Carbon Dioxide BUN Creatinine Glucose POC Glucose 115 H 113 H Calcium Phosphorus Magnesium AST ALT Total Creatine Kinase CK-MB (CK-2) Total Protein Albumin Salicylates Acetaminophen Valproic Acid 08/08/20 08/09/20 08/09/20 22:24 07:05 07:05 WBC Hgb Hct MCH 34 H MCHC 36 H Plt Count 539 H [place] % (Auto) [place] # Seg Neutrophils % Seg Neutrophils # PT INR Sodium 135 L Potassium 5.2 H Chloride Carbon Dioxide BUN Creatinine 0.4 L Glucose POC Glucose 109 H Calcium Phosphorus Magnesium AST ALT Total Creatine Kinase CK-MB (CK-2) Total Protein Albumin Salicylates Acetaminophen Valproic Acid 08/09/20 08/10/20 08/11/20 23:30 13:00 12:10 WBC Hgb Hct MCH MCHC Plt Count [place] % (Auto) [place] # Seg Neutrophils % Seg Neutrophils # PT INR Sodium Potassium Chloride Carbon Dioxide 21 L BUN Creatinine 0.3 L Glucose POC Glucose 208 H 118 H Calcium Phosphorus Magnesium AST ALT Total Creatine Kinase CK-MB (CK-2) Total Protein Albumin Salicylates Acetaminophen Valproic Acid 08/11/20 08/11/20 08/12/20 17:49 23:31 06:18 WBC Hgb Hct MCH MCHC Plt Count [place] % (Auto) [place] # Seg Neutrophils % Seg Neutrophils # PT INR Sodium Potassium Chloride Carbon Dioxide BUN Creatinine Glucose POC Glucose 139 H 133 H 132 H Calcium Phosphorus Magnesium AST ALT Total Creatine Kinase CK-MB (CK-2) Total Protein Albumin Salicylates Acetaminophen Valproic Acid 08/12/20 08/12/20 08/13/20 12:17 16:40 00:17 WBC Hgb Hct MCH MCHC Plt Count [place] % (Auto) [place] # Seg Neutrophils % Seg Neutrophils # PT INR Sodium Potassium Chloride Carbon Dioxide BUN Creatinine Glucose POC Glucose 124 H 109 H 128 H Calcium Phosphorus Magnesium AST ALT Total Creatine Kinase CK-MB (CK-2) Total Protein Albumin Salicylates Acetaminophen Valproic Acid 08/13/20 08/13/20 08/13/20 06:18 16:50 22:40 WBC Hgb Hct MCH MCHC Plt Count [place] % (Auto) [place] # Seg Neutrophils % Seg Neutrophils # PT INR Sodium Potassium Chloride Carbon Dioxide BUN Creatinine Glucose POC Glucose 115 H 119 H 109 H Calcium Phosphorus Magnesium AST ALT Total Creatine Kinase CK-MB (CK-2) Total Protein Albumin Salicylates Acetaminophen Valproic Acid 08/14/20 08/14/20 05:13 12:03 WBC Hgb Hct MCH MCHC Plt Count [place] % (Auto) [place] # Seg Neutrophils % Seg Neutrophils # PT INR Sodium Potassium Chloride Carbon Dioxide BUN Creatinine Glucose POC Glucose 122 H 126 H Calcium Phosphorus Magnesium AST ALT Total Creatine Kinase CK-MB (CK-2) Total Protein Albumin Salicylates Acetaminophen Valproic Acid Assessment and Plan 60 yo female with schizoaffective d/o w/ noted akinetic state. 1. Stroke - check MRI Deandre w/ wo contrast if no contraindications; recommend CTA Head w/ wo contrast; aspirin 81 mg peg qday; further testing based on imaging findings. 2. Encephalitis - recommend LP/CSF (w/ opening/closing pressure): cell count w/ diff (tube 1 & 4), protein/glucose, gram stain, culture, cryptococcal antigen, hsv-pcr, vzv-pcr, vdrl, cytology, flow cytometry; save 7 cc of csf for further testing as indicated; 3. Seizure - recommend EEG x 1 hour to rule out any evidence of underlying epileptiform discharges or ictal activity. 4. Catatonic state - above workup to r/o alternate etiology for hypoactive state. 5. Schizoaffective d/o - per psychiatry. Woody Nails MD Neurology
[2020-08-15] MEDS: INSULIN REGULAR, HUMAN 100 UNIT/ML 3ML VIAL SUB-Q SCH ×4 (02:34→18:39)
[2020-08-15] MEDS: HEPARIN 5,000 UNIT/1 ML VIAL SUB-Q SCH ×3 (02:38→18:39)
[2020-08-15 10:27] LABS: Blood Urea Nitrogen 13 mg/dL (7-17); Calcium 9.1 mg/dL (8.4-10.2); Hemolysis Index 47
[2020-08-15 11:07] LABS: BUN/Creatinine Ratio 43
[2020-08-15] MEDS: VALPROIC ACID 250 MG/5 ML ORAL LIQD FEEDTUBE SCH ×2 (12:09→22:13)
[2020-08-15] MEDS: MEGESTROL 400 MG/10 ML ORAL LIQD PO SCH (12:09)
[2020-08-15] MEDS ORDERED: FOSPHENYTOIN 500 MG PE/10 ML INJ IV ONE (13:22)
[2020-08-15] MEDS ORDERED: FOSPHENYTOIN 1,000 MG.PE in SODIUM CHLORIDE 0.9% 100 ML IV ONE (14:00)
[2020-08-15] MEDS: levETIRAcetam 1,000 MG in DEXTROSE 5% IN WATER 100 ML IV SCH ×2 (14:05→22:14)
--- NOTE | 2020-08-15 15:58 | Progress Note ---
Assessment and Plan - Patient Problems (1) Schizoaffective disorder Current Visit: Yes Status: Chronic Plan to address problem: Patient admitted catatonic state and is nonverbal and not following commands Psychiatric consult completed; does not recommend inpatient at this time Haldol as needed, Depakote, Zyprexa Supportive care (2) Hyponatremia Current Visit: Yes Status: Acute Plan to address problem: Admit sodium 142 07/31 134, slight hyponatremia at this time no intervention needed, 08/01 Na 136 however she has remained hyponatremic Hydration with free water flush; 50ml q6 hours while hyponatremic-> informed RN on 08/06 08/07 sodium 136 08/09 sodium 135 Trend BMP 08/10 sodium 141 08/15 sodium 134; informed RN FWF are ordered to be 50 mL every 6 while hyponatremic (3) Metabolic encephalopathy Current Visit: Yes Status: Acute Plan to address problem: Multifactorial , schizoaffective disorder Patient came from [place], psych evaluation noted Psych recommends outpt f/u Continue NG tube feedings 08/14 neurology consult: Recommends obtaining EEG, LP, CTA head, MRI brain with and without contrast (4) Metabolic acidosis Current Visit: Yes Status: Resolved Plan to address problem: Admit CO2 27 07/15 trended down to 16 and trended to 26 on 08/01 Trend BMP 08/15 CO2 14 (5) Discharge planning issues Current Visit: Yes Status: Acute Plan to address problem: Patient's identity is not confirmed [facility] Department has been contacted to aid in identification however unsuccessful [facility] Department have been contacted Inpatient records requested from [facility] again on 08/02 Risk-management made aware of patient again on 08/02 Patient identification confirmed with [facility] Department Attempted to contact children, CM has an email address and an email was sent over the weekend however there is been no reply 08/07: 2 physician consent for PEG tube obtained and GI consulted for PEG tube placement 08/09: PEG tube placed, resume tube feeds within 4 hours [facility] in the process of assuming guardianship over the patient for placement 08/14 ethics consulted (6) DVT prophylaxis Current Visit: Yes Status: Acute Plan to address problem: SCDs to bilateral lower extremities while in bed Heparin subcu History Interval history: 60-year-old female patient with schizoaffective disorder with active hallucinations and confusion presented from [place] for altered mental status and poor intake on 07/13. She was found to have rhabdomyolysis and electrolyte imbalances. She then developed C. difficile diarrhea and she has completed her regimen of p.o. vancomycin from 07/20-08/03. Patient remains in catatonic state does not follow any commands and is nonverbal. She had a Dobbhoff tube in place with tube feeds infusing. No acute events reported overnight. Patient was found in the [facility] Police Department records and her family has been contacted via email with no response. No acute events reported overnight. Neur ology recommended LP, EEG EEG, CT head and MRI brain with and without contrast which are all pending. 07/13; patient's CK levels trending down on 1678, continue IV hydration patient is more alert at times, hallucinating, Noncommunicative, severe hypokalemia, replace per protocol 07/14; potassium level significantly improved today to 3.2, replenish per protocol. CK levels trending down 828, continue IV hydration, monitor electrolytes 07/15; patient refused potassium yesterday today potassium levels again 2.7 We will add KCl to IV fluids, and IV K riders, monitor electrolytes. CK level 425. Refusing to eat confused noncommunicative. Possible inpatient psych admission when medically stable 07/16; rhabdomyolysis resolved, mild electrolyte imbalances, if corrected medically stable for inpatient psych placement 07/17: replete K and phosphate. repeat CBc BMP tomorrow. White count needs to be < 10 for inpt psych admission 07/18: cont to have mildly elevated white count, c/o loose stool. will check for C. def - start flagyl and cipro 07/19: White count normal today. change medications to Po. medically stable to go for inpt psych unit. 07/20; positive for C. def. patient not eating properly, refusing meds time to time. Psych now recommended outpt f/u. CM working on placement. Patient remains nonverbal, does not follow any commend and not giving any personal info. 07/21; K 2.0 today, cont to replete, follow BMP, patient remains nonverbal and not cooperative. refuses to eat and meds. cont d51/2NS. if condition doesnot improve will consider TF 07/22: Potassium level persistently remains low, magnesium 1.6 today. Will replete magnesium and potassium. Patient refusing meds and not eating at all per RN report. Totally noncooperative during the encounternot respond to any question. Keeps her eye closing and covering her face with her forearm. Will order for tube feeding and Dobbhoff tube. Continue to follow. We will also add Megace to boost appetite. 07/23: started on TF, follow BMP, change iv fluid to 1/2 NS. patient remains nonverbal 07/24; clinically unchanged, replete K, iv fluid and TF. reconsult psych as patient remains in catatonic phase 07/25: psych recommendation noted, continue tube feeding, continue to replete electrolytes as needed, follow BMP. I strongly believe her severe electrolytes derangement and encephalopathy related to her catatonia, poor oral intake other than any underlying medical conditions. There is no family contact in file, no home address available, patient appeared to be unfunded. wastewater manager working on placement. 07/26: psych recommendation noted, continue tube feeding, continue to replete electrolytes as needed, follow BMP. I strongly believe her severe electrolytes derangement and encephalopathy related to her catatonia, poor oral intake other than any underlying medical conditions. There is no family contact in file, no home address available, patient appeared to be unfunded. wastewater manager working on placement. 07/27; continue with tube feeding. There is no family contact in file, no home address available, patient appeared to be unfunded. Case management is following. 07/28; patient still on tube feeding, patient is noncommunicative. I believe her condition is related to her catatonia. Psych is following her. Currently her electrolytes are corrected. There is no family contact in file, no home address available, patient appeared to be unfunded. Case management is following. 07/29 patient is nonverbal, eyes open does not follow simple commands,, still having low-grade fever T-max 100 degrees,, lab results reviewed discussed with RN- still has loose stools, case finisher notes reviewed, unable to contact family 07/30 no acute events overnight, diarrhea improved, stop IV fluids, disposition to be decided 07/31: personnel training officer presented to the bedside to attempt to fingerprint the patient to identify her. However his machine was not working 08/01:' Per case finisher note [facility] Department has been contacted to help in identifying the patient. On officer is to report to bedside and was instructed to call the case finisher upon arrival. 08/02/2020 still has diarrhea 08/03/2020 diarrhea improving. Today is the last day of vancomycin 08/04/2020 patient has no diarrhea 08/05: casino shift manager RN reported patient had a seizure overnight, Ativan was ordered however was not administered because according to the dayshift RN he was reported that the patient "did not need the medication because she was not having a seizure at the moment". Patient remained hyponatremic and hypochloremic and after conversing with the nurse patient was not getting her prescribed dose FWF for hyponatremia which was corrected 08/06: Electrolyte imbalance discontinue, patient still catatonic 08/07: Electrolyte imbalances continue, to physician consent for PEG tube obtained and GI consulted 08/08: PEG scheduled for 08/09 08/09: s/p PEG placement with GI, hyperkalemic (potassium 5.2) s/p MT Kayexalate. 08/11; patient is on PEG tube feeding. C. difficile treated and resolved. Patient still in catatonic state. Pending guardianship. 08/12/2020 patient on PEG tube feeding. Guardianship pending. Pending placemen t. 08/13: [place] events reported overnight, gaurdenship pending. 08/14/20: quality and futility of care is questionable, patient not following any commands, pupillary reflex noted, neurology and ethics consult placed Hospitalist Physical - Physical exam Narrative exam: General appearance: Present: no acute distress, other (Nonverbal, awake) - EENT Eyes: Present: PERRL - Neck Neck: Present: supple, normal ROM - Respiratory Respiratory effort: normal Respiratory: bilateral: CTA - Cardiovascular Rhythm: regular Heart Sounds: Present: S1 & S2. Absent: systolic murmur, diastolic murmur - Extremities Extremities: no ischemia, pulses intact, pulses symmetrical, No edema, normal temperature, normal color, Full ROM Peripheral Pulses: within normal limits - Abdominal General gastrointestinal: soft, non-tender, non-distended, normal bowel sounds - Integumentary Integumentary: Present: clear, warm, dry - Psychiatric Psychiatric: other (Patient is nonverbal, does not follow any commands however does withdraw to pain to all 4 extremities) - Neurologic Neurologic: moves all extremities (spontaneously) - Constitutional Vitals: Temp Pulse Resp BP Pulse Ox 98.6 F 120 H 18 108/42 98 08/15/20 11:50 08/15/20 11:50 08/15/20 11:50 08/15/20 11:50 08/15/20 11:50 General appearance: Present: no acute distress, well-nourished HEART Score - HEART Score Risk factors: 1-2 risk factors Troponin: Troponin T < 0.010 ng/mL (0.00-0.029) 07/11/20 21:17 Troponin: < normal limit - Critical Actions Critical Actions: 0-3 pts:0.9-1.7%risk of adverse cardiac event.Candidate for discharge Results - Labs CBC & Chem 7: 08/09/20 07:05 08/15/20 09:24 Labs: Laboratory Last Values WBC 10.9 K/mm3 (4.5-11.0) 08/09/20 07:05 RBC 4.06 M/mm3 (3.65-5.03) 08/09/20 07:05 Hgb 14.0 gm/dl (10.1-14.3) 08/09/20 07:05 Hct 38.9 % (30.3-42.9) D 08/09/20 07:05 MCV 96 fl (79-97) 08/09/20 07:05 MCH 34 pg (28-32) H 08/09/20 07:05 MCHC 36 % (30-34) H 08/09/20 07:05 RDW 14.6 % (13.2-15.2) 08/09/20 07:05 Plt Count 539 K/mm3 (140-440) H 08/09/20 07:05 Lymph % (Auto) 21.6 % (13.4-35.0) 07/26/20 07:30 Arthur % (Auto) 6.2 % (0.0-7.3) 07/26/20 07:30 Eos % (Auto) 0.5 % (0.0-4.3) 07/26/20 07:30 Baso % (Auto) 0.3 % (0.0-1.8) 07/26/20 07:30 Lymph # (Auto) 2.0 K/mm3 (1.2-5.4) 07/26/20 07:30 Arthur # (Auto) 0.6 K/mm3 (0.0-0.8) 07/26/20 07:30 Eos # (Auto) 0.1 K/mm3 (0.0-0.4) 07/26/20 07:30 Baso # (Auto) 0.0 K/mm3 (0.0-0.1) 07/26/20 07:30 Seg Neutrophils % 71.4 % (40.0-70.0) H 07/26/20 07:30 Seg Neutrophils # 6.8 K/mm3 (1.8-7.7) 07/26/20 07:30 PT 11.7 Sec. (12.2-14.9) L 08/07/20 15:47 INR 0.84 (0.87-1.13) L 08/07/20 15:47 Sodium 134 mmol/L (137-145) L 08/15/20 09:24 Potassium 4.8 mmol/L (3.6-5.0) D 08/15/20 09:24 Chloride 98.1 mmol/L (98-107) 08/15/20 09:24 Carbon Dioxide 14 mmol/L (22-30) L D 08/15/20 09:24 Anion Gap 27 mmol/L 08/15/20 09:24 BUN 13 mg/dL (7-17) 08/15/20 09:24 Creatinine 0.3 mg/dL (0.6-1.2) L 08/15/20 09:24 Estimated GFR > 60 ml/min 08/15/20 09:24 BUN/Creatinine Ratio 43 % 08/15/20 09:24 Glucose 121 mg/dL (65-100) H 08/15/20 09:24 POC Glucose 108 (70-105) H 08/15/20 12:03 Lactic Acid 1.50 mmol/L (0.7-2.0) 07/12/20 00:04 Phosphorus 3.10 mg/dL (2.5-4.5) 07/24/20 06:00 Magnesium 2.10 mg/dL (1.7-2.3) 07/24/20 06:00 Calcium 9.1 mg/dL (8.4-10.2) 08/15/20 09:24 Direct Bilirubin < 0.2 mg/dL (0-0.2) 07/13/20 09:33 Ammonia 28.0 umol/L (25-60) 07/11/20 21:17 Total Bilirubin 0.40 mg/dL (0.1-1.2) 08/06/20 08:59 Total Creatine Kinase 102 units/L (30-135) 07/17/20 05:21 CK-MB (CK-2) 9.2 ng/mL (0.0-4.0) H 07/12/20 15:13 AST 63 units/L (5-40) H 08/06/20 08:59 ALT 41 units/L (7-56) 08/06/20 08:59 CK-MB (CK-2) Rel Index 0.4 (0-4) 07/12/20 15:13 Alkaline Phosphatase 59 units/L (35-129) 08/06/20 08:59 Troponin T < 0.010 ng/mL (0.00-0.029) 07/11/20 21:17 Total Protein 6.6 g/dL (6.3-8.2) 08/06/20 08:59 Albumin 3.8 g/dL (3.9-5) L 08/06/20 08:59 Albumin/Globulin Ratio 1.4 % 08/06/20 08:59 Urine Color Yellow (Yellow) 07/11/20 Unknown Urine Turbidity Clear (Clear) 07/11/20 Unknown Urine pH 6.0 (5.0-7.0) 07/11/20 Unknown Ur Specific [place] 1.023 (1.003-1.030) 07/11/20 Unknown Urine Protein 30 mg/dl mg/dL (Negative) 07/11/20 Unknown Urine Glucose (UA) Neg mg/dL (Negative) 07/11/20 Unknown Urine Ketones Tr mg/dL (Negative) 07/11/20 Unknown Urine Blood Neg (Negative) 07/11/20 Unknown Urine Nitrite Neg (Negative) 07/11/20 Unknown Urine Bilirubin Neg (Negative) 07/11/20 Unknown Urine Urobilinogen 2.0 mg/dL (<2.0) 07/11/20 Unknown Ur Leukocyte Esterase Neg (Negative) 07/11/20 Unknown Urine WBC (Auto) 2.0 /HPF (0.0-6.0) 07/11/20 Unknown Urine RBC (Auto) 3.0 /HPF (0.0-6.0) 07/11/20 Unknown U Epithel Cells (Auto) 3.0 /HPF (0-13.0) 07/11/20 Unknown Urine Mucus 3+ /HPF 07/11/20 Unknown Salicylates < 0.3 mg/dL (2.8-20.0) L 07/11/20 21:17 Urine Opiates Screen Presumptive negative 07/11/20 Unknown Urine Methadone Screen Presumptive negative 07/11/20 Unknown Acetaminophen 5.0 ug/mL (10.0-30.0) L 07/11/20 21:17 Ur Barbiturates Screen Presumptive negative 07/11/20 Unknown Valproic Acid 7.7 ug/mL (50-100) L 07/19/20 08:12 Ur Phencyclidine Scrn Presumptive negative 07/11/20 Unknown Ur Amphetamines Screen Presumptive negative 07/11/20 Unknown U Benzodiazepines Scrn Presumptive negative 07/11/20 Unknown Urine Cocaine Screen Presumptive negative 07/11/20 Unknown U Marijuana (THC) Screen Presumptive negative 07/11/20 Unknown Drugs of Abuse Note Disclamer 07/11/20 Unknown C. difficile Tox (PCR) Positive (Negative) 07/19/20 18:51 Ledesma/IV: Voiding Method External Female Catheter IV Catheter Type [Right INT / Saline Lock Antecubital] IV Catheter Type [Left Forearm INT / Saline Lock ] IV Catheter Type [Right Hand] INT / Saline Lock IV Catheter Type [Right INT / Saline Lock Forearm] IV Catheter Type [Left Hand] INT / Saline Lock Active Medications - Current Medications Current Medications: Generic Name Dose Route Start Last Admin Trade Name Suleimanq PRN Reason Stop Dose Admin Acetaminophen 650 mg 07/12/20 01:05 07/27/20 01:57 Tylenol MT 650 mg Q4H PRN Administration Fever >101 Lipase/Protease/Amylase 1 each 07/22/20 07:44 08/14/20 10:25 Pancreaze 10,500 Unit FEEDTUBE 1 each PRN PRN Administration For Clogged Feeding Tube Haloperidol Lactate 5 mg 07/18/20 13:15 07/21/20 22:06 Haldol IM 5 mg Q6H PRN Administration Agitation Heparin Sodium (Porcine) 5,000 unit 07/12/20 10:00 08/15/20 12:29 Heparin SUB-Q 5,000 unit Q8H KEITH Administration Levetiracetam 1,000 mg/ 110 mls @ 400 mls/hr 08/15/20 14:00 08/15/20 14:05 Dextrose IV 400 mls/hr Q12HR KEITH Administration Insulin Human Regular 0 unit 07/23/20 09:00 08/15/20 13:29 Humulin R SUB-Q Not Given Q6HR [facility] Protocol Lorazepam 2 mg 08/06/20 05:05 08/12/20 17:37 Ativan IV 2 mg Q4H PRN Administration Agitation Megestrol Acetate 400 mg 07/22/20 10:00 08/15/20 12:09 Megestrol PO 400 mg QDAY KEITH Administration Olanzapine 2.5 mg 07/25/20 22:00 08/14/20 21:17 Zyprexa PO 2.5 mg QHS KEITH Administration Ondansetron HCl 4 mg 07/12/20 01:06 Zofran IV Q8H PRN Nausea And Vomiting Simple Syrup 15 ml 07/22/20 07:44 Simple Syrup FEEDTUBE PRN PRN Hypoglycemia Simple Syrup 30 ml 07/22/20 07:44 Simple Syrup FEEDTUBE PRN PRN Hypoglycemia Sodium Bicarbonate 325 mg 07/22/20 07:44 Sodium Bicarbonate FEEDTUBE PRN PRN For Clogged Feeding Tube Valproic Acid 250 mg 07/25/20 22:00 08/15/20 12:09 Depakene Liq FEEDTUBE 250 mg BID KEITH Administration Nutrition/Malnutrition Assess - Dietary Evaluation Nutrition/Malnutrition Findings: Nutrition Notes Start: 07/12/20 11:40 Freq: Status: Active Protocol: Document 08/15/20 13:06 SHIRLEY (Rec: 08/15/20 13:17 SHIRLEY [id number]) Co-Sign 08/15/20 13:06 LM Nutrition Notes Initial or Follow up Reassessment Other Pertinent Diagnosis C. diff (+), AMS, Rhabdomyolysis, dehydration, Hx of stroke Current Diet Osmolite at 35ml/hr Labs/Tests Reviewed Pertinent Medications Reviewed Height 5 ft Weight 52 kg Vina Body Weight (kg) 45.45 BMI 22.4 Subjective/Other Information F/u stable TF. Per nursing notes, pt's TF is stable at 35ml/hr and still well tolerated. Percent of energy/protein needs met: 100%/90% Burn Absent Trauma Absent GI Symptoms None Current % PO Negligible Minimum of two criteria No Energy Intake (severe) < or equal to 50% Estimated Energy Requirement > or equal to 5 days #1 Nutrition Diagnosis Inadequate oral intake Diagnosis Progress(for reassessment Continues documentation) Is patient on ventilator? No Is Patient Ambulatory and/or Out of Bed No REE-([facility]-confined to bed) 1213.032 Calculation Used for Recommendations [facility] Additional Notes Protein Needs 59-70g (1-1.2g/ kg) Fluid Needs: 1ml/kcal Nutrition Intervention Change Diet Order: Continue Nutrition Support: Osmolite 1.5 at 35ml/hr. Flush 100ml q4hr Kcal 1,260 Protein (gm) 53 Fluid (mL) 640 Goal #1 Patient meets at least 75% of energy and protein needs via TF Anticipated Discharge Needs: Recommend Jevity 1.2 bolus 5 cans/day: Breakfast 2 cans ( 474ml), Lunch 2 cans (474ml), Dinner 1 can (237ml) with flush 100ml before and after bolus. Follow-Up By: 08/22/20 Additional Comments F/u stable TF and discharge plan
[2020-08-15 16:20] LABS: INR 0.92 (0.87-1.13); Partial Thromboplastin Time 20.4 Sec. (24.2-36.6)
--- NOTE | 2020-08-15 16:20 | Cat Scan Report ---
CT HEAD WITHOUT CONTRAST INDICATION / CLINICAL INFORMATION: evaluation of AMS. Altered mental status TECHNIQUE: Axial imaging performed from the skull apex through the skull base without the use of cont rast. Sagittal and coronal reformatted images. All CT scans at this location are performed using CT dose reduction for ALARA by means of automated exposure control. COMPARISON: 07/11/2020 FINDINGS: CEREBRAL PARENCHYMA: No significant abnormality. No acute territorial infarct. HEMORRHAGE: None. EXTRA-AXIAL SPACES: Normal in size and morphology for the patient's age. VENTRICULAR SYSTEM: Normal in size and morphology for the patient's age. MIDLINE SHIFT OR HERNIATION: None. CEREBELLUM / BRAINSTEM: No significant abnormality. CALVARIUM: No significant abnormality. ORBITS: Normal as visualized. PARANASAL SINUSES / MASTOID AIR CELLS: Normal as visualized. SOFT TISSUES of HEAD: No significant abnormality. ADDITIONAL FINDINGS: None. IMPRESSION: No acute intracranial abnormality. No change since 07/11/2020 exam. Signer Name: Corbin Manley Jr, MD Signed: 08/15/2020 4:15 PM Workstation Name: [id number]
--- NOTE | 2020-08-15 16:57 | Progress Note ---
Assessment and Plan 60 yo female with schizoaffective d/o w/ noted akinetic state. 1. Stroke - check MRI Deandre w/ wo contrast if no contraindications (check whole body Xray for metal and if clear, get MRI); recommend CTA Head w/ wo contrast; aspirin 81 mg peg qday; further testing based on imaging findings. 2. Encephalitis - recommend LP/CSF (w/ opening/closing pressure): cell count w/ diff (tube 1 & 4), protein/glucose, gram stain, culture, cryptococcal antigen, hsv-pcr, vzv-pcr, vdrl, cytology, flow cytometry; save 7 cc of csf for further testing as indicated; 3. Seizure - recommend EEG x 1 hour to rule out any evidence of underlying epileptiform discharges or ictal activity; per reliability technologist official read of EEG will be dealyed until tomrrow - will initiate fosphenytoin and keppra load and maintenance for keppra and valproate (pt is already on valproate 250 mg po bid). 4. Therapeutic Drug Monitoring - check vpa and phenytoin level in AM. 5. Catatonic state - above workup to r/o alternate etiology for hypoactive state. 6. Schizoaffective d/o - per psychiatry. Woody Nails MD Neurology Subjective Date of service: 08/15/20 Principal diagnosis: C diff Interval history: Notified by reliability technologist that concern is raised for status epilepticus on the EEG, however official read won't happen until tomrrow. Objective - Vital Sign Vital Signs - 12hr 08/15/20 08/15/20 05:26 11:50 Temperature 97.6 F 98.6 F Pulse Rate 96 H 120 H Respiratory 20 18 Rate Blood Pressure 111/82 108/42 O2 Sat by Pulse 90 98 Oximetry - Laboratory Findings CBC and BMP: 08/09/20 07:05 08/15/20 09:24 Abnormal Lab Findings: Abnormal Labs 07/11/20 07/11/20 07/11/20 21:17 21:17 21:17 WBC 11.7 H Hgb 14.4 H Hct MCH 35 H MCHC 36 H Plt Count Pettis % (Auto) Pettis # Seg Neutrophils % 72.1 H Seg Neutrophils # 8.5 H PT INR APTT Sodium Potassium 3.5 L Chloride Carbon Dioxide BUN 20 H Creatinine 0.5 L Glucose 122 H POC Glucose Calcium Phosphorus Magnesium AST 86 H ALT 68 H Total Creatine Kinase 1998 H CK-MB (CK-2) Total Protein Albumin Salicylates < 0.3 L Acetaminophen Valproic Acid 07/11/20 07/12/20 07/12/20 21:17 06:26 15:13 WBC Hgb Hct MCH MCHC Plt Count Pettis % (Auto) Pettis # Seg Neutrophils % Seg Neutrophils # PT INR APTT Sodium Potassium Chloride Carbon Dioxide BUN Creatinine Glucose POC Glucose Calcium Phosphorus Magnesium AST ALT Total Creatine Kinase 1888 H 1852 H CK-MB (CK-2) 14.8 H 9.2 H Total Protein Albumin Salicylates Acetaminophen 5.0 L Valproic Acid 07/13/20 07/13/20 07/14/20 09:33 09:33 01:52 WBC Hgb Hct MCH MCHC Plt Count Pettis % (Auto) Pettis # Seg Neutrophils % Seg Neutrophils # PT INR APTT Sodium Potassium 2.8 L* 3.2 L Chloride 107.9 H Carbon Dioxide BUN Creatinine 0.3 L Glucose POC Glucose Calcium 7.9 L D Phosphorus Magnesium AST 83 H ALT Total Creatine Kinase 1678 H CK-MB (CK-2) Total Protein 5.3 L D Albumin 3.0 L Salicylates Acetaminophen Valproic Acid 07/14/20 07/15/20 07/16/20 15:48 05:55 08:26 WBC Hgb Hct MCH MCHC Plt Count Pettis % (Auto) Pettis # Seg Neutrophils % Seg Neutrophils # PT INR APTT Sodium Potassium 2.7 L* 3.1 L Chloride 108.0 H Carbon Dioxide 16 L D 14 L BUN 4 L Creatinine 0.3 L 0.3 L Glucose POC Glucose Calcium 8.3 L Phosphorus 2.40 L Magnesium AST ALT Total Creatine Kinase 828 H 425 H 188 H CK-MB (CK-2) Total Protein Albumin Salicylates Acetaminophen Valproic Acid 07/17/20 07/17/20 07/18/20 05:21 05:21 05:53 WBC 12.1 H 11.6 H Hgb Hct MCH MCHC Plt Count Pettis % (Auto) 7.9 H Pettis # 0.9 H Seg Neutrophils % 70.7 H Seg Neutrophils # 8.2 H PT INR APTT Sodium Potassium 3.2 L Chloride Carbon Dioxide BUN Creatinine Glucose POC Glucose Calcium Phosphorus 2.40 L Magnesium AST ALT Total Creatine Kinase CK-MB (CK-2) Total Protein Albumin Salicylates Acetaminophen Valproic Acid 07/18/20 07/19/20 07/19/20 05:53 08:12 08:12 WBC Hgb Hct MCH 33 H MCHC 35 H Plt Count Pettis % (Auto) Pettis # Seg Neutrophils % Seg Neutrophils # PT INR APTT Sodium Potassium Chloride 108.3 H Carbon Dioxide 17 L BUN 5 L Creatinine 0.3 L Glucose POC Glucose Calcium 8.3 L Phosphorus 2.30 L Magnesium AST ALT Total Creatine Kinase CK-MB (CK-2) Total Protein Albumin Salicylates Acetaminophen Valproic Acid 7.7 L 07/21/20 07/22/20 07/23/20 06:35 06:59 07:27 WBC Hgb Hct MCH MCHC Plt Count Pettis % (Auto) Pettis # Seg Neutrophils % Seg Neutrophils # PT INR APTT Sodium 146 H Potassium 2.0 L* D 2.2 L* Chloride Carbon Dioxide 32 H BUN 2 L < 1 L < 1 L Creatinine 0.2 L 0.2 L 0.4 L D Glucose 139 H 130 H 574 H* POC Glucose Calcium 8.0 L 7.0 L D Phosphorus Magnesium 1.60 L AST ALT Total Creatine Kinase CK-MB (CK-2) Total Protein Albumin Salicylates Acetaminophen Valproic Acid 07/23/20 07/23/20 07/23/20 10:58 11:16 16:50 WBC Hgb Hct MCH MCHC Plt Count Pettis % (Auto) Pettis # Seg Neutrophils % Seg Neutrophils # PT INR APTT Sodium 146 H Potassium 3.5 L D Chloride Carbon Dioxide 31 H BUN 2 L Creatinine 0.2 L Glucose 112 H POC Glucose 111 H 137 H Calcium 8.3 L D Phosphorus Magnesium AST ALT Total Creatine Kinase CK-MB (CK-2) Total Protein Albumin Salicylates Acetaminophen Valproic Acid 07/23/20 07/24/20 07/24/20 22:33 06:00 08:47 WBC Hgb Hct MCH MCHC Plt Count Pettis % (Auto) Pettis # Seg Neutrophils % Seg Neutrophils # PT INR APTT Sodium 146 H Potassium 3.0 L Chloride Carbon Dioxide 31 H BUN Creatinine 0.3 L Glucose 140 H POC Glucose 153 H 118 H Calcium Phosphorus Magnesium AST ALT Total Creatine Kinase CK-MB (CK-2) Total Protein Albumin Salicylates Acetaminophen Valproic Acid 07/24/20 07/24/20 07/25/20 12:04 17:34 05:58 WBC Hgb Hct MCH MCHC Plt Count Pettis % (Auto) Pettis # Seg Neutrophils % Seg Neutrophils # PT INR APTT Sodium Potassium Chloride Carbon Dioxide BUN Creatinine Glucose POC Glucose 126 H 146 H 141 H Calcium Phosphorus Magnesium AST ALT Total Creatine Kinase CK-MB (CK-2) Total Protein Albumin Salicylates Acetaminophen Valproic Acid 07/25/20 07/25/20 07/25/20 08:09 09:53 12:07 WBC Hgb Hct MCH MCHC Plt Count Pettis % (Auto) Pettis # Seg Neutrophils % Seg Neutrophils # PT INR APTT Sodium Potassium Chloride Carbon Dioxide BUN Creatinine 0.2 L Glucose 115 H POC Glucose 138 H 131 H Calcium 8.2 L Phosphorus Magnesium AST ALT Total Creatine Kinase CK-MB (CK-2) Total Protein Albumin Salicylates Acetaminophen Valproic Acid 07/25/20 07/25/20 07/26/20 17:35 22:31 05:43 WBC Hgb Hct MCH MCHC Plt Count Pettis % (Auto) Pettis # Seg Neutrophils % Seg Neutrophils # PT INR APTT Sodium Potassium Chloride Carbon Dioxide BUN Creatinine Glucose POC Glucose 125 H 130 H 153 H Calcium Phosphorus Magnesium AST ALT Total Creatine Kinase CK-MB (CK-2) Total Protein Albumin Salicylates Acetaminophen Valproic Acid 07/26/20 07/26/20 07/26/20 07:30 07:30 12:01 WBC Hgb Hct MCH 33 H MCHC Plt Count 464 H Pettis % (Auto) Pettis # Seg Neutrophils % 71.4 H Seg Neutrophils # PT INR APTT Sodium Potassium Chloride Carbon Dioxide BUN Creatinine 0.3 L Glucose 144 H POC Glucose 134 H Calcium Phosphorus Magnesium AST ALT Total Creatine Kinase CK-MB (CK-2) Total Protein Albumin Salicylates Acetaminophen Valproic Acid 07/26/20 07/27/20 07/27/20 17:08 06:11 09:25 WBC Hgb Hct MCH MCHC Plt Count Pettis % (Auto) Pettis # Seg Neutrophils % Seg Neutrophils # PT INR APTT Sodium 136 L Potassium Chloride Carbon Dioxide BUN Creatinine 0.3 L Glucose 120 H POC Glucose 106 H 128 H Calcium Phosphorus Magnesium AST ALT Total Creatine Kinase CK-MB (CK-2) Total Protein Albumin Salicylates Acetaminophen Valproic Acid 07/27/20 07/27/20 07/27/20 12:51 17:41 23:40 WBC Hgb Hct MCH MCHC Plt Count Pettis % (Auto) Pettis # Seg Neutrophils % Seg Neutrophils # PT INR APTT Sodium Potassium Chloride Carbon Dioxide BUN Creatinine Glucose POC Glucose 124 H 111 H 148 H Calcium Phosphorus Magnesium AST ALT Total Creatine Kinase CK-MB (CK-2) Total Protein Albumin Salicylates Acetaminophen Valproic Acid 07/28/20 07/28/20 07/28/20 05:00 06:14 11:25 WBC Hgb Hct MCH MCHC Plt Count Pettis % (Auto) Pettis # Seg Neutrophils % Seg Neutrophils # PT INR APTT Sodium 135 L Potassium 5.1 H Chloride Carbon Dioxide 21 L BUN Creatinine 0.3 L Glucose 131 H POC Glucose 161 H 143 H Calcium Phosphorus Magnesium AST ALT Total Creatine Kinase CK-MB (CK-2) Total Protein Albumin Salicylates Acetaminophen Valproic Acid 07/28/20 07/28/20 07/29/20 18:06 23:53 05:36 WBC Hgb Hct MCH MCHC Plt Count Pettis % (Auto) Pettis # Seg Neutrophils % Seg Neutrophils # PT INR APTT Sodium Potassium Chloride Carbon Dioxide BUN Creatinine 0.3 L Glucose 149 H POC Glucose 160 H 118 H Calcium Phosphorus Magnesium AST ALT Total Creatine Kinase CK-MB (CK-2) Total Protein Albumin Salicylates Acetaminophen Valproic Acid 07/29/20 07/29/20 07/29/20 06:46 12:08 17:29 WBC Hgb Hct MCH MCHC Plt Count Pettis % (Auto) Pettis # Seg Neutrophils % Seg Neutrophils # PT INR APTT Sodium Potassium Chloride Carbon Dioxide BUN Creatinine Glucose POC Glucose 119 H 126 H 148 H Calcium Phosphorus Magnesium AST ALT Total Creatine Kinase CK-MB (CK-2) Total Protein Albumin Salicylates Acetaminophen Valproic Acid 07/29/20 07/30/20 07/30/20 23:49 05:48 17:48 WBC Hgb Hct MCH MCHC Plt Count Pettis % (Auto) Pettis # Seg Neutrophils % Seg Neutrophils # PT INR APTT Sodium Potassium Chloride Carbon Dioxide BUN Creatinine Glucose POC Glucose 119 H 119 H 110 H Calcium Phosphorus Magnesium AST ALT Total Creatine Kinase CK-MB (CK-2) Total Protein Albumin Salicylates Acetaminophen Valproic Acid 07/31/20 07/31/20 07/31/20 11:55 12:34 17:18 WBC Hgb Hct MCH MCHC Plt Count Pettis % (Auto) Pettis # Seg Neutrophils % Seg Neutrophils # PT INR APTT Sodium 134 L Potassium Chloride 97.0 L Carbon Dioxide 21 L BUN 19 H Creatinine 0.3 L Glucose 116 H POC Glucose 119 H 124 H Calcium Phosphorus Magnesium AST ALT Total Creatine Kinase CK-MB (CK-2) Total Protein Albumin Salicylates Acetaminophen Valproic Acid 07/31/20 08/01/20 08/01/20 23:30 06:22 06:45 WBC Hgb Hct MCH MCHC Plt Count Pettis % (Auto) Pettis # Seg Neutrophils % Seg Neutrophils # PT INR APTT Sodium 136 L Potassium Chloride 97.9 L Carbon Dioxide BUN Creatinine 0.3 L Glucose 122 H POC Glucose 138 H 123 H Calcium Phosphorus Magnesium AST ALT Total Creatine Kinase CK-MB (CK-2) Total Protein Albumin Salicylates Acetaminophen Valproic Acid 08/01/20 08/02/20 08/02/20 18:17 00:51 06:48 WBC Hgb Hct MCH MCHC Plt Count Pettis % (Auto) Pettis # Seg Neutrophils % Seg Neutrophils # PT INR APTT Sodium Potassium Chloride Carbon Dioxide BUN Creatinine Glucose POC Glucose 111 H 109 H 123 H Calcium Phosphorus Magnesium AST ALT Total Creatine Kinase CK-MB (CK-2) Total Protein Albumin Salicylates Acetaminophen Valproic Acid 08/02/20 08/02/20 08/02/20 12:51 17:55 22:18 WBC Hgb Hct MCH MCHC Plt Count Pettis % (Auto) Pettis # Seg Neutrophils % Seg Neutrophils # PT INR APTT Sodium Potassium Chloride Carbon Dioxide BUN Creatinine Glucose POC Glucose 135 H 119 H 117 H Calcium Phosphorus Magnesium AST ALT Total Creatine Kinase CK-MB (CK-2) Total Protein Albumin Salicylates Acetaminophen Valproic Acid 08/03/20 08/03/20 08/03/20 05:45 06:05 12:15 WBC Hgb Hct MCH MCHC Plt Count Pettis % (Auto) Pettis # Seg Neutrophils % Seg Neutrophils # PT INR APTT Sodium 135 L Potassium 5.4 H D Chloride 96.2 L Carbon Dioxide BUN Creatinine 0.4 L Glucose 117 H POC Glucose 109 H 127 H Calcium Phosphorus Magnesium AST ALT Total Creatine Kinase CK-MB (CK-2) Total Protein Albumin Salicylates Acetaminophen Valproic Acid 08/03/20 08/03/20 08/04/20 17:00 22:35 05:59 WBC Hgb Hct MCH MCHC Plt Count Pettis % (Auto) Pettis # Seg Neutrophils % Seg Neutrophils # PT INR APTT Sodium Potassium Chloride Carbon Dioxide BUN Creatinine Glucose POC Glucose 117 H 114 H 115 H Calcium Phosphorus Magnesium AST ALT Total Creatine Kinase CK-MB (CK-2) Total Protein Albumin Salicylates Acetaminophen Valproic Acid 08/04/20 08/04/20 08/05/20 17:00 23:58 06:33 WBC Hgb Hct MCH MCHC Plt Count Pettis % (Auto) Pettis # Seg Neutrophils % Seg Neutrophils # PT INR APTT Sodium Potassium Chloride Carbon Dioxide BUN Creatinine Glucose POC Glucose 123 H 110 H 115 H Calcium Phosphorus Magnesium AST ALT Total Creatine Kinase CK-MB (CK-2) Total Protein Albumin Salicylates Acetaminophen Valproic Acid 08/06/20 08/06/20 08/07/20 08:59 12:27 00:39 WBC Hgb Hct MCH MCHC Plt Count Pettis % (Auto) Pettis # Seg Neutrophils % Seg Neutrophils # PT INR APTT Sodium 133 L Potassium Chloride 97.0 L Carbon Dioxide BUN Creatinine 0.3 L Glucose 130 H POC Glucose 112 H 55 L Calcium Phosphorus Magnesium AST 63 H ALT Total Creatine Kinase CK-MB (CK-2) Total Protein Albumin 3.8 L Salicylates Acetaminophen Valproic Acid 08/07/20 08/07/20 08/07/20 05:36 07:19 07:19 WBC Hgb 15.2 H Hct 45.5 H MCH 33 H MCHC Plt Count 663 H Pettis % (Auto) Pettis # Seg Neutrophils % Seg Neutrophils # PT INR APTT Sodium 136 L Potassium Chloride 97.9 L Carbon Dioxide BUN Creatinine 0.3 L Glucose 123 H POC Glucose 118 H Calcium Phosphorus Magnesium AST ALT Total Creatine Kinase CK-MB (CK-2) Total Protein Albumin Salicylates Acetaminophen Valproic Acid 08/07/20 08/08/20 08/08/20 15:47 05:24 11:42 WBC Hgb Hct MCH MCHC Plt Count Pettis % (Auto) Pettis # Seg Neutrophils % Seg Neutrophils # PT 11.7 L INR 0.84 L APTT Sodium Potassium Chloride Carbon Dioxide BUN Creatinine Glucose POC Glucose 115 H 113 H Calcium Phosphorus Magnesium AST ALT Total Creatine Kinase CK-MB (CK-2) Total Protein Albumin Salicylates Acetaminophen Valproic Acid 08/08/20 08/09/20 08/09/20 22:24 07:05 07:05 WBC Hgb Hct MCH 34 H MCHC 36 H Plt Count 539 H Pettis % (Auto) Pettis # Seg Neutrophils % Seg Neutrophils # PT INR APTT Sodium 135 L Potassium 5.2 H Chloride Carbon Dioxide BUN Creatinine 0.4 L Glucose POC Glucose 109 H Calcium Phosphorus Magnesium AST ALT Total Creatine Kinase CK-MB (CK-2) Total Protein Albumin Salicylates Acetaminophen Valproic Acid 08/09/20 08/10/20 08/11/20 23:30 13:00 12:10 WBC Hgb Hct MCH MCHC Plt Count Pettis % (Auto) Pettis # Seg Neutrophils % Seg Neutrophils # PT INR APTT Sodium Potassium Chloride Carbon Dioxide 21 L BUN Creatinine 0.3 L Glucose POC Glucose 208 H 118 H Calcium Phosphorus Magnesium AST ALT Total Creatine Kinase CK-MB (CK-2) Total Protein Albumin Salicylates Acetaminophen Valproic Acid 08/11/20 08/11/20 08/12/20 17:49 23:31 06:18 WBC Hgb Hct MCH MCHC Plt Count Pettis % (Auto) Pettis # Seg Neutrophils % Seg Neutrophils # PT INR APTT Sodium Potassium Chloride Carbon Dioxide BUN Creatinine Glucose POC Glucose 139 H 133 H 132 H Calcium Phosphorus Magnesium AST ALT Total Creatine Kinase CK-MB (CK-2) Total Protein Albumin Salicylates Acetaminophen Valproic Acid 08/12/20 08/12/20 08/13/20 12:17 16:40 00:17 WBC Hgb Hct MCH MCHC Plt Count Pettis % (Auto) Pettis # Seg Neutrophils % Seg Neutrophils # PT INR APTT Sodium Potassium Chloride Carbon Dioxide BUN Creatinine Glucose POC Glucose 124 H 109 H 128 H Calcium Phosphorus Magnesium AST ALT Total Creatine Kinase CK-MB (CK-2) Total Protein Albumin Salicylates Acetaminophen Valproic Acid 08/13/20 08/13/20 08/13/20 06:18 16:50 22:40 WBC Hgb Hct MCH MCHC Plt Count Pettis % (Auto) Pettis # Seg Neutrophils % Seg Neutrophils # PT INR APTT Sodium Potassium Chloride Carbon Dioxide BUN Creatinine Glucose POC Glucose 115 H 119 H 109 H Calcium Phosphorus Magnesium AST ALT Total Creatine Kinase CK-MB (CK-2) Total Protein Albumin Salicylates Acetaminophen Valproic Acid 08/14/20 08/14/20 08/15/20 05:13 12:03 09:24 WBC Hgb Hct MCH MCHC Plt Count Pettis % (Auto) Pettis # Seg Neutrophils % Seg Neutrophils # PT INR APTT Sodium 134 L Potassium Chloride Carbon Dioxide 14 L D BUN Creatinine 0.3 L Glucose 121 H POC Glucose 122 H 126 H Calcium Phosphorus Magnesium AST ALT Total Creatine Kinase CK-MB (CK-2) Total Protein Albumin Salicylates Acetaminophen Valproic Acid 08/15/20 08/15/20 12:03 15:26 WBC Hgb Hct MCH MCHC Plt Count Pettis % (Auto) Pettis # Seg Neutrophils % Seg Neutrophils # PT INR APTT 20.4 L Sodium Potassium Chloride Carbon Dioxide BUN Creatinine Glucose POC Glucose 108 H Calcium Phosphorus Magnesium AST ALT Total Creatine Kinase CK-MB (CK-2) Total Protein Albumin Salicylates Acetaminophen Valproic Acid
[2020-08-15] MEDS ORDERED: VALPROATE SODIUM 500 MG in SODIUM CHLORIDE 0.9% 100 ML IV SCH (22:00)
[2020-08-16] MEDS: INSULIN REGULAR, HUMAN 100 UNIT/ML 3ML VIAL SUB-Q SCH ×4 (01:42→17:28)
[2020-08-16] MEDS: HEPARIN 5,000 UNIT/1 ML VIAL SUB-Q SCH ×3 (02:30→17:25)
[2020-08-16] MEDS: MEGESTROL 400 MG/10 ML ORAL LIQD PO SCH (10:00)
[2020-08-16] MEDS: levETIRAcetam 1,000 MG in DEXTROSE 5% IN WATER 100 ML IV SCH (10:00)
[2020-08-16] MEDS: VALPROIC ACID 250 MG/5 ML ORAL LIQD FEEDTUBE SCH ×2 (10:00→21:23)
--- NOTE | 2020-08-16 10:00 | XRay Report ---
LEFT TIBIA-FIBULA 1 VIEW(S) INDICATION / CLINICAL INFORMATION: r/o metal in body COMPARISON: Left foot and femur radiographs 08/16/2020 FINDINGS: BONES / JOINT(S): No acute fracture or subluxation. No significant arthritis. SOFT TISSUES: No significant abnormality. No radiopaque foreign body identified. ADDITIONAL FINDINGS: None. Signer Name: Kwame Mcfarland MD Signed: 08/16/2020 9:55 AM Workstation Name: [id number]
--- NOTE | 2020-08-16 10:00 | XRay Report ---
LEFT FEMUR 1 VIEW(S) INDICATION / CLINICAL INFORMATION: r/o metal in body COMPARISON: Left tib-fib and foot from same day FINDINGS: BONES / JOINT(S): No acute fracture or subluxation. No significant arthritis. SOFT TISSUES: No significant abnormality. No radiopaque foreign body identified. ADDITIONAL FINDINGS: None. Signer Name: Kwame Mcfarland MD Signed: 08/16/2020 9:56 AM Workstation Name: [id number]
--- NOTE | 2020-08-16 10:01 | XRay Report ---
LEFT FOOT 1 VIEW(S) INDICATION / CLINICAL INFORMATION: r/o metal in body COMPARISON: Left femur and tib-fib radiographs 08/16/2020 FINDINGS: BONES / JOINT(S): No acute fracture or subluxation. No significant arthritis. SOFT TISSUES: No significant abnormality. No radiopaque foreign body identified. ADDITIONAL FINDINGS: None. Signer Name: Kwame Mcfarland MD Signed: 08/16/2020 9:56 AM Workstation Name: [id number]
--- NOTE | 2020-08-16 10:01 | XRay Report ---
RIGHT FOOT 3 VIEW(S) INDICATION / CLINICAL INFORMATION: r/o metal in body COMPARISON: None available. FINDINGS: BONES / JOINT(S): No acute fracture or subluxation. No significant arthritis. SOFT TISSUES: No significant abnormality. No radiopaque foreign body identified. ADDITIONAL FINDINGS: None. Signer Name: Kwame Mcfarland MD Signed: 08/16/2020 9:57 AM Workstation Name: [id number]
--- NOTE | 2020-08-16 10:02 | XRay Report ---
RIGHT FEMUR 2 VIEW(S) INDICATION / CLINICAL INFORMATION: r/o metal in body COMPARISON: None available. FINDINGS: BONES / JOINT(S): No acute fracture or subluxation. No significant arthritis. SOFT TISSUES: No significant abnormality. No radiopaque foreign body identified. ADDITIONAL FINDINGS: None. Signer Name: Kwame Mcfarland MD Signed: 08/16/2020 9:58 AM Workstation Name: [id number]
--- NOTE | 2020-08-16 10:05 | XRay Report ---
RIGHT TIBIA AND FIBULA 1 VIEW INDICATION: r/o metal in body. COMPARISON: None. IMPRESSION: No acute osseous or soft tissue abnormality. No significant DJD. No metallic foreign bodies are identified in the visualized right lower extremity. Signer Name: Corbin Manley Jr, MD Signed: 08/16/2020 10:01 AM Workstation Name: [id number]
--- NOTE | 2020-08-16 14:32 | Procedure Note ---
Date of procedure: 08/16/20 Pre-op diagnosis: mental status changes Post-op diagnosis: same Procedure: lumbar puncture under flouroscopy Findings: none Anesthesia: local Surgeon: MAYRA PORTER Estimated blood loss: none Pathology: list (4 tubes) Specimen disposition: to lab Condition: stable Disposition: floor
--- NOTE | 2020-08-16 14:37 | Fluoroscopy Report ---
LUMBAR PUNCTURE INDICATION : Altered mental status PROCEDURE: The risks (including but not limited to bleeding, infection, and spinal headache) and gutierrez efits were explained to the patient and informed consent was obtained. A time out procedure was perf ormed. The procedure site was prepped and draped in the usual sterile fashion and lidocaine was used for local anesthesia. Under fluoroscopic guidance, a 22-gauge spinal needle was advanced into the L2-3 interlaminar space. The opening pressure was 100 mm H2O which was calculated by adding the length of the needle (9 cm) to the height of the CSF column. 4 separate collection tubes were used to obtain 1.5 cc of CSF each. Sa mples were sent to the lab per the ordering physician specifications for further evaluation. The patient tolerated the procedure well with no complications. IMPRESSION: Successful lumbar puncture as outlined above. Opening pressure was 100 mm H20. Fluoroscopic time: 1.1 Number of fluoroscopic images: 1 Signer Name: Corbin Manley Jr, MD Signed: 08/16/2020 2:33 PM Workstation Name: [id number]
[2020-08-16 14:46] LABS: BUN/Creatinine Ratio 43; Blood Urea Nitrogen 13 mg/dL (7-17); Calcium 8.7 mg/dL (8.4-10.2); Hemolysis Index 15
[2020-08-16 14:51] LABS: Glucose,CSF 60 mg/dL
[2020-08-16 16:07] LABS: Total Cells Counted 100 /mm3
[2020-08-16 16:09] LABS: Appearance,CSF Clear; Red Blood Cell,CSF 4 /mm3 (0-0); White Blood Cell,CSF 6 /mm3 (1-10)
[2020-08-16 16:10] LABS: Basophils CSF 0 %
--- NOTE | 2020-08-16 16:12 | Progress Note ---
Assessment and Plan - Patient Problems (1) Seizure Current Visit: Yes Status: Acute Plan to address problem: RN reported seizure activity on on 08/05; Ativan was ordered however was not administered because according to the dayshift RN he was reported that the patient "did not need the medication because she was not having a seizure at the moment". After reviewing nursing notes it is noted that she had reported seizure activity by RN on 08/12 and was given Ativan. Hospitalist was informed No seizure activity reported since Neurology consulted EEG pending Fosphenytoin and Keppra ordered Patient is already on valproate (2) Schizoaffective disorder Current Visit: Yes Status: Chronic Plan to address problem: Patient admitted catatonic state and is nonverbal and not following commands Psychiatric consult completed; does not recommend inpatient at this time Haldol as needed, Depakote, Zyprexa Supportive care (3) Hyponatremia Current Visit: Yes Status: Acute Plan to address problem: Admit sodium 142 07/31 134, slight hyponatremia at this time no intervention needed, 08/01 Na 136 however she has remained hyponatremic Hydration with free water flush; 50ml q6 hours while hyponatremic-> informed RN on 08/06 08/07 sodium 136 / sodium 135 Trend BMP 08/10 sodium 141 08/15 sodium 134; informed RN FWF are ordered to be 50 mL every 6 while hyponatremic 08/16 sodium 131, nutrition notes reviewed and FWF seems to be changed 100 mL q4 hours (4) Metabolic encephalopathy Current Visit: Yes Status: Acute Plan to address problem: Multifactorial , schizoaffective disorder 07/11 CT head Normal nonenhanced CT scan of the brain Patient came [place], psych evaluation noted Psych recommends outpt f/u 08/14 neurology consult: Recommends obtaining EEG, LP, CTA head, MRI brain with and without contrast 08/15 CT head shows no acute abnormalities and no changes since 07/11/202008/16: LP under fluoroscopy completed. CSF analysis pending 08/16 MRI brain with/without contrast pending Supportive care (5) Discharge planning issues Current Visit: Yes Status: Acute Plan to address problem: Patient's identity is not confirmed [facility] Department has been contacted to aid in identification however [facility] have been contacted Inpatient records requested from [facility] again on 08/02 Risk-management made aware of patient again on 08/02 Patient identification confirmed with [facility] Department Attempted to contact children, ERMIAS has an email address and an email was sent over the weekend however there is been no reply 08/07: 2 physician consent for PEG tube obtained and GI consulted for PEG tube placement 08/09: PEG tube placed, resume tube feeds within 4 hours [facility] in the process of assuming guardianship over the patient for placement 08/14 ethics consulted (6) DVT prophylaxis Current Visit: Yes Status: Acute Plan to address problem: SCDs to bilateral lower extremities while in bed Heparin subcu History Interval history: 60-year-old female patient with schizoaffective disorder with active hallucinations and confusion presented from [place] for altered mental status and poor intake on 07/13. She was found to have rhabdomyolysis and electrolyte imbalances. She then developed C. difficile diarrhea and she has completed her regimen of p.o. vancomycin from 07/20-08/03. Patient remains in catatonic state does not follow any commands and is nonverbal. She had a Dobbhoff tube in place with tube feeds infusing. No acute events reported overnight. Patient was found in the [facility] Department records and her family has been contacted via email with no response. No acute events reported overnight. Physician consult obtained for LP which was completed today. Bilateral lower extremity x-rays noted no metal and a physician consent was obtained for contrast therefore MRI brain pending. EEG still pending. Patient again has hypochloremia and hyponatremia. 07/13; patient's CK levels trending down on 1678, continue IV hydration patient is more alert at times, hallucinating, Noncommunicative, severe hypokalemia, replace per protocol 07/14; potassium level significantly improved today to 3.2, replenish per protocol. CK levels trending down 828, continue IV hydration, monitor electrolytes 07/15; patient refused potassium yesterday today potassium levels again 2.7 We will add KCl to IV fluids, and IV K riders, monitor electrolytes. CK level 425. Refusing to eat confused noncommunicative. Possible inpatient psych admission when medically stable 07/16; rhabdomyolysis resolved, mild electrolyte imbalances, if corrected medically stable for inpatient psych placement 07/17: replete K and phosphate. repeat CBc BMP tomorrow. White count needs to be < 10 for inpt psych admission 07/18: cont to have mildly elevated white count, c/o loose stool. will check for C. def - start flagyl and cipro 07/19: White count normal today. change medications to Po. medically stable to go for inpt psych unit. 07/20; positive for C. def. patient not eating properly, refusing meds time to time. Psych now recommended outpt f/u. CM working on placement. Patient remains nonverbal, does not follow any commend and not giving any personal info. 07/21; K 2.0 today, cont to replete, follow BMP, patient remains nonverbal and not cooperative. refuses to eat and meds. cont d51/2NS. if condition doesnot improve will consider TF 07/22: Potassium level persistently remains low, magnesium 1.6 today. Will replete magnesium and potassium. Patient refusing meds and not eating at all per RN report. Totally noncooperative during the encounternot respond to any question. Keeps her eye closing and covering her face with her forearm. Will order for tube feeding and Dobbhoff tube. Continue to follow. We will also add Megace to boost appetite. 07/23: started on TF, follow BMP, change iv fluid to 1/2 NS. patient remains nonverbal 07/24; clinically unchanged, replete K, iv fluid and TF. reconsult psych as patient remains in catatonic phase 07/25: psych recommendation noted, continue tube feeding, continue to replete electrolytes as needed, follow BMP. I strongly believe her severe electrolytes derangement and encephalopathy related to her catatonia, poor oral intake other than any underlying medical conditions. There is no family contact in file, no home address available, patient appeared to be unfunded. business center manager working on placement. 07/26: psych recommendation noted, continue tube feeding, continue to replete electrolytes as needed, follow BMP. I strongly believe her severe electrolytes derangement and encephalopathy related to her catatonia, poor oral intake other than any underlying medical conditions. There is no family contact in file, no home address available, patient appeared to be unfunded. business center manager working on placement. 07/27; continue with tube feeding. There is no family contact in file, no home address available, patient appeared to be unfunded. Case management is following. 07/28; patient still on tube feeding, patient is noncommunicative. I believe her condition is related to her catatonia. Psych is following her. Currently her electrolytes are corrected. There is no family contact in file, no home address available, patient appeared to be unfunded. Case management is following. 07/29 patient is nonverbal, eyes open does not follow simple commands,, still having low-grade fever T-max 100 degrees,, lab results reviewed discussed with RN- still has loose stools, adult protective caseworker notes reviewed, unable to contact family 07/30 no acute events overnight, diarrhea improved, stop IV fluids, disposition to be decided 07/31: training and development officer presented to the bedside to attempt to fingerprint the patient to identify her. However his machine was not working 08/01:' Per adult protective caseworker note [facility] has been contacted to help in identifying the patient. On officer is to report to bedside and was instructed to call the adult protective caseworker upon arrival. 08/02/2020 still has diarrhea 08/03/2020 diarrhea improving. Today is the last day of vancomycin 08/04/2020 patient has no diarrhea 08/05: cage shift manager RN reported patient had a seizure overnight, Ativan was ordered however was not administered because according to the dayshift RN he was reported that the patient "did not need the medication because she was not havi ng a seizure at the moment". Patient remained hyponatremic and hypochloremic and after conversing with the nurse patient was not getting her prescribed dose FWF for hyponatremia which was corrected 08/06: Electrolyte imbalance discontinue, patient still catatonic 08/07: Electrolyte imbalances continue, to physician consent for PEG tube obtained and GI consulted 08/08: PEG scheduled for 08/09 08/09: s/p PEG placement with GI, hyperkalemic (potassium 5.2) s/p IL Kayexalate. 08/11; patient is on PEG tube feeding. C. difficile treated and resolved. Patient still in catatonic state. Pending guardianship. 08/12/2020 patient on PEG tube feeding. Guardianship pending. Pending placement. 08/13: no aucte events reported overnight, gaurdenship pending. 08/14/20: quality and futility of care is questionable, patient not following any commands, pupillary reflex noted, neurology and ethics consult placed 08/15: Neurology recommended LP, EEG, CT head and MRI brain with and without contrast which are all pending. Hospitalist Physical - Physical exam Narrative exam: General appearance: Present: no acute distress, other (Nonverbal, awake) - EENT Eyes: Present: PERRL - Neck Neck: Present: supple, normal ROM - Respiratory Respiratory effort: normal Respiratory: bilateral: CTA - Cardiovascular Rhythm: regular Heart Sounds: Present: S1 & S2. Absent: systolic murmur, diastolic murmur - Extremities Extremities: no ischemia, pulses intact, pulses symmetrical, No edema, normal temperature, normal color, Full ROM Peripheral Pulses: within normal limits - Abdominal General gastrointestinal: soft, non-tender, non-distended, normal bowel sounds - Integumentary Integumentary: Present: clear, warm, dry - Psychiatric Psychiatric: other (Patient is nonverbal, does not follow any commands however does withdraw to pain to all 4 extremities) - Neurologic Neurologic: moves all extremities (spontaneously) - Constitutional Vitals: Temp Pulse Resp BP Pulse Ox 98.2 F 90 20 108/69 95 08/16/20 05:45 08/16/20 05:45 08/16/20 05:45 08/16/20 05:45 08/16/20 05:45 General appearance: Present: no acute distress, well-nourished HEART Score - HEART Score Risk factors: 1-2 risk factors Troponin: Troponin T < 0.010 ng/mL (0.00-0.029) 07/11/20 21:17 Troponin: < normal limit - Critical Actions Critical Actions: 0-3 pts:0.9-1.7%risk of adverse cardiac event.Candidate for discharge Results - Labs CBC & Chem 7: 08/15/20 15:26 08/16/20 11:56 Labs: Laboratory Last Values WBC 10.9 K/mm3 (4.5-11.0) 08/09/20 07:05 RBC 4.06 M/mm3 (3.65-5.03) 08/09/20 07:05 Hgb 14.0 gm/dl (10.1-14.3) 08/09/20 07:05 Hct 38.9 % (30.3-42.9) D 08/09/20 07:05 MCV 96 fl (79-97) 08/09/20 07:05 MCH 34 pg (28-32) H 08/09/20 07:05 MCHC 36 % (30-34) H 08/09/20 07:05 RDW 14.6 % (13.2-15.2) 08/09/20 07:05 Plt Count 400 K/mm3 (140-440) 08/15/20 15:26 Lymph % (Auto) 21.6 % (13.4-35.0) 07/26/20 07:30 [place] % (Auto) 6.2 % (0.0-7.3) 07/26/20 07:30 Eos % (Auto) 0.5 % (0.0-4.3) 07/26/20 07:30 Baso % (Auto) 0.3 % (0.0-1.8) 07/26/20 07:30 Lymph # (Auto) 2.0 K/mm3 (1.2-5.4) 07/26/20 07:30 [place] # (Auto) 0.6 K/mm3 (0.0-0.8) 07/26/20 07:30 Eos # (Auto) 0.1 K/mm3 (0.0-0.4) 07/26/20 07:30 Baso # (Auto) 0.0 K/mm3 (0.0-0.1) 07/26/20 07:30 Seg Neutrophils % 71.4 % (40.0-70.0) H 07/26/20 07:30 Seg Neutrophils # 6.8 K/mm3 (1.8-7.7) 07/26/20 07:30 PT 12.5 Sec. (12.2-14.9) 08/15/20 15:26 INR 0.92 (0.87-1.13) 08/15/20 15:26 APTT 20.4 Sec. (24.2-36.6) L 08/15/20 15:26 Sodium 131 mmol/L (137-145) L 08/16/20 11:56 Potassium 4.8 mmol/L (3.6-5.0) 08/16/20 11:56 Chloride 91.6 mmol/L (98-107) L 08/16/20 11:56 Carbon Dioxide 23 mmol/L (22-30) D 08/16/20 11:56 Anion Gap 21 mmol/L 08/16/20 11:56 BUN 13 mg/dL (7-17) 08/16/20 11:56 Creatinine 0.3 mg/dL (0.6-1.2) L 08/16/20 11:56 Estimated GFR > 60 ml/min 08/16/20 11:56 BUN/Creatinine Ratio 43 % 08/16/20 11:56 Glucose 169 mg/dL (65-100) H 08/16/20 11:56 POC Glucose 90 (70-105) 08/16/20 11:38 Lactic Acid 1.50 mmol/L (0.7-2.0) 07/12/20 00:04 Phosphorus 3.10 mg/dL (2.5-4.5) 07/24/20 06:00 Magnesium 2.10 mg/dL (1.7-2.3) 07/24/20 06:00 Calcium 8.7 mg/dL (8.4-10.2) 08/16/20 11:56 Direct Bilirubin < 0.2 mg/dL (0-0.2) 07/13/20 09:33 Ammonia 28.0 umol/L (25-60) 07/11/20 21:17 Total Bilirubin 0.40 mg/dL (0.1-1.2) 08/06/20 08:59 Total Creatine Kinase 102 units/L (30-135) 07/17/20 05:21 CK-MB (CK-2) 9.2 ng/mL (0.0-4.0) H 07/12/20 15:13 AST 63 units/L (5-40) H 08/06/20 08:59 ALT 41 units/L (7-56) 08/06/20 08:59 CK-MB (CK-2) Rel Index 0.4 (0-4) 07/12/20 15:13 Alkaline Phosphatase 59 units/L (35-129) 08/06/20 08:59 Troponin T < 0.010 ng/mL (0.00-0.029) 07/11/20 21:17 Total Protein 6.6 g/dL (6.3-8.2) 08/06/20 08:59 Albumin 3.8 g/dL (3.9-5) L 08/06/20 08:59 Albumin/Globulin Ratio 1.4 % 08/06/20 08:59 Urine Color Yellow (Yellow) 07/11/20 Unknown Urine Turbidity Clear (Clear) 07/11/20 Unknown Urine pH 6.0 (5.0-7.0) 07/11/20 Unknown Ur Specific Sophia 1.023 (1.003-1.030) 07/11/20 Unknown Urine Protein 30 mg/dl mg/dL (Negative) 07/11/20 Unknown Urine Glucose (UA) Neg mg/dL (Negative) 07/11/20 Unknown Urine Ketones Tr mg/dL (Negative) 07/11/20 Unknown Urine Blood Neg (Negative) 07/11/20 Unknown Urine Nitrite Neg (Negative) 07/11/20 Unknown Urine Bilirubin Neg (Negative) 07/11/20 Unknown Urine Urobilinogen 2.0 mg/dL (<2.0) 07/11/20 Unknown Ur Leukocyte Esterase Neg (Negative) 07/11/20 Unknown Urine WBC (Auto) 2.0 /HPF (0.0-6.0) 07/11/20 Unknown Urine RBC (Auto) 3.0 /HPF (0.0-6.0) 07/11/20 Unknown U Epithel Cells (Auto) 3.0 /HPF (0-13.0) 07/11/20 Unknown Urine Mucus 3+ /HPF 07/11/20 Unknown CSF Glucose 60 mg/dL 08/16/20 14:18 CSF Total Protein 94 mg/dL 08/16/20 14:18 Salicylates < 0.3 mg/dL (2.8-20.0) L 07/11/20 21:17 Urine Opiates Screen Presumptive negative 07/11/20 Unknown Urine Methadone Screen Presumptive negative 07/11/20 Unknown Acetaminophen 5.0 ug/mL (10.0-30.0) L 07/11/20 21:17 Ur Barbiturates Screen Presumptive negative 07/11/20 Unknown Ur Phencyclidine Scrn Presumptive negative 07/11/20 Unknown Phenytoin 8.9 ug/mL (10.0-20.0) L 08/16/20 11:56 Ur Amphetamines Screen Presumptive negative 07/11/20 Unknown Valproic Acid 68.8 ug/mL (50-100) 08/16/20 11:56 U Benzodiazepines Scrn Presumptive negative 07/11/20 Unknown Urine Cocaine Screen Presumptive negative 07/11/20 Unknown U Marijuana (THC) Screen Presumptive negative 07/11/20 Unknown Drugs of Abuse Note Disclamer 07/11/20 Unknown C. difficile Tox (PCR) Positive (Negative) 07/19/20 18:51 Enterovirus (PCR) [facility] 08/16/20 14:18 Led[place]ma/IV: Voiding Method External Female Catheter IV Catheter Type [Right INT / Saline Lock Antecubital] IV Catheter Type [Left Forearm INT / Saline Lock ] IV Catheter Type [Right Hand] INT / Saline Lock IV Catheter Type [Right INT / Saline Lock Forearm] IV Catheter Type [Left Hand] INT / Saline Lock Active Medications - Current Medications Current Medications: Generic Name Dose Route Start Last Admin Trade Name Freq PRN Reason Stop Dose Admin Acetaminophen 650 mg 07/12/20 01:05 07/27/20 01:57 Tylenol IL 650 mg Q4H PRN Administration Fever >101 Lipase/Protease/Amylase 1 each 07/22/20 07:44 08/14/20 10:[address] 10,500 Unit FEEDTUBE 1 each PRN PRN Administration For Clogged Feeding Tube Haloperidol Lactate 5 mg 07/18/20 13:15 07/21/20 22:06 Haldol IM 5 mg Q6H PRN Administration Agitation Heparin Sodium (Porcine) 5,000 unit 07/12/20 10:00 08/16/20 10:00 Heparin SUB-Q 5,000 unit Q8H KEITH Administration Levetiracetam 1,000 mg/ 110 mls @ 400 mls/hr 08/15/20 14:00 08/16/20 10:00 Dextrose IV 400 mls/hr Q12HR KEITH Administration Insulin Human Regular 0 unit 07/23/20 09:00 08/16/20 12:00 Humulin R SUB-Q Not Given Q6HR [facility] Protocol Lorazepam 2 mg 08/06/20 05:05 08/12/20 17:37 Ativan IV 2 mg Q4H PRN Administration Agitation Megestrol Acetate 400 mg 07/22/20 10:00 08/16/20 10:00 Megestrol PO 400 mg QDAY KEITH Administration Olanzapine 2.5 mg 07/25/20 22:00 08/15/20 22:14 Zyprexa PO 2.5 mg QHS KEITH Administration Ondansetron HCl 4 mg 07/12/20 01:06 Zofran IV Q8H PRN Nausea And Vomiting Simple Syrup 15 ml 07/22/20 07:44 Simple Syrup FEEDTUBE PRN PRN Hypoglycemia Simple Syrup 30 ml 07/22/20 07:44 Simple Syrup FEEDTUBE PRN PRN Hypoglycemia Sodium Bicarbonate 325 mg 07/22/20 07:44 Sodium Bicarbonate FEEDTUBE PRN PRN For Clogged Feeding Tube Valproic Acid 750 mg 08/15/20 20:00 08/16/20 10:00 Depakene Liq FEEDTUBE 750 mg BID KEITH Administration Nutrition/Malnutrition Assess - Dietary Evaluation Nutrition/Malnutrition Findings: Nutrition Notes Start: 07/12/20 11:4 0 Freq: Status: Active Protocol: Document 08/15/20 13:06 SHIRLEY (Rec: 08/15/20 13:17 SHIRLEY [id number]) Co-Sign 08/15/20 13:06 LM Nutrition Notes Initial or Follow up Reassessment Other Pertinent Diagnosis C. diff (+), AMS, Rhabdomyolysis, dehydration, Hx of stroke Current Diet Osmolite at 35ml/hr Labs/Tests Reviewed Pertinent Medications Reviewed Height 5 ft Weight 52 kg [place] Body Weight (kg) 45.45 BMI 22.4 Subjective/Other Information F/u stable TF. Per nursing notes, pt's TF is stable at 35ml/hr and still well tolerated. Percent of energy/protein needs met: 100%/90% Burn Absent Trauma Absent GI Symptoms None Current % PO Negligible Minimum of two criteria No Energy Intake (severe) < or equal to 50% Estimated Energy Requirement > or equal to 5 days #1 Nutrition Diagnosis Inadequate oral intake Diagnosis Progress(for reassessment Continues documentation) Is patient on ventilator? No Is Patient Ambulatory and/or Out of Bed No [facility] 1213.032 Calculation Used for Recommendations [facility] Additional Notes Protein Needs 59-70g (1-1.2g/ kg) Fluid Needs: 1ml/kcal Nutrition Intervention Change Diet Order: Continue Nutrition Support: Osmolite 1.5 at 35ml/hr. Flush 100ml q4hr Kcal 1,260 Protein (gm) 53 Fluid (mL) 640 Goal #1 Patient meets at least 75% of energy and protein needs via TF Anticipated Discharge Needs: Recommend Jevity 1.2 bolus 5 cans/day: Breakfast 2 cans ( 474ml), Lunch 2 cans (474ml), Dinner 1 can (237ml) with flush 100ml before and after bolus. Follow-Up By: 08/22/20 Additional Comments F/u stable TF and discharge plan
[2020-08-16] MEDS: levETIRAcetam 500 MG/5 ML ORAL LIQD PO SCH (21:23)
[2020-08-17] MEDS: INSULIN REGULAR, HUMAN 100 UNIT/ML 3ML VIAL SUB-Q SCH ×4 (00:53→17:00)
[2020-08-17] MEDS: HEPARIN 5,000 UNIT/1 ML VIAL SUB-Q SCH ×3 (01:44→17:10)
[2020-08-17 05:52] LABS: Blood Urea Nitrogen 12 mg/dL (7-17); Calcium 8.4 mg/dL (8.4-10.2); Hemolysis Index 45
[2020-08-17 06:06] LABS: BUN/Creatinine Ratio 40
[2020-08-17] MEDS: VALPROIC ACID 250 MG/5 ML ORAL LIQD FEEDTUBE SCH (09:32)
[2020-08-17] MEDS: MEGESTROL 400 MG/10 ML ORAL LIQD PO SCH (09:32)
[2020-08-17] MEDS: levETIRAcetam 500 MG/5 ML ORAL LIQD PO SCH (09:36)
--- NOTE | 2020-08-17 14:34 | Magnetic Resonance Report ---
MRI BRAIN WITHOUT AND WITH CONTRAST INDICATION / CLINICAL INFORMATION: Tramel status. TECHNIQUE: Multiplanar, multisequence MR images of the brain were obtained. Contrast: MultiHance 18 mL administered intravenously. COMPARISON: Head CT 08/15/2020 FINDINGS: BRAIN / INTRACRANIAL CONTENTS: Ventricles and cortical sulci are normal in size and configuration. Th ere is no mass effect. No evidence of intracranial hemorrhage or extra-axial fluid collection is seen . No significant areas of abnormal brain parenchymal signal intensity are identified. There is no ind ication of remote cortical infarction. Diffusion weighted scans are negative. There is no indication of acute ischemic injury. The brainstem and cerebellum have an unremarkable appearance. MIDLINE STRUCTURES:No abnormalities are seen to involve the pituitary gland. Pineal region has an unr emarkable appearance. CRANIOCERVICAL JUNCTION: No abnormalities are identified at the craniocervical junction. VASCULAR FLOW-VOIDS: Normal flow-voids are present within the major intracranial vessels. ORBITS: The orbits have an unremarkable appearance. SINUSES / MASTOIDS: There is no indication of inflammatory disease in the paranasal sinuses or mastoi d air cells. ADDITIONAL FINDINGS: None. IMPRESSION: 1. No significant abnormality on MRI brain without and with intravenous contrast. Signer Name: Bennie Short MD Signed: 08/17/2020 2:29 PM Workstation Name: [id number]
[2020-08-17] MEDS ORDERED: DIVALPROEX DR 250 MG TAB PO SCH (15:00)
[2020-08-17] MEDS ORDERED: LORazepam 2 MG/ML VIAL IV SCH (15:00)
[2020-08-17] MEDS ORDERED: DIVALPROEX DR 500 MG TAB PO SCH ×2 (15:00→22:00)
--- NOTE | 2020-08-17 15:10 | Progress Note ---
Assessment and Plan 60 yo female with schizoaffective d/o w/ noted akinetic state. 1. Status Epilepticus - noted on EEG; patient will require transfer to a [facility] w/ cEEG monitoring for higher level of care as EEG here is intermittently available and intermittently read at present; increase depakote to 1000 mg bid (bolus of 500 mg via peg); increase Keppra to 1500 mg bid; initiate vimpat 200 mg iv q12; s/p Ativan 1 mg IV x 1 dose given; pending MRI Brain w/ wo contrast. 2. Therapeutic Drug Monitoring - check depakote level in AM and adjust accordin gly; monitor ammonia levels. 3. Stroke - pending MRI Deandre w/ wo contrast if no contraindications (s/p whole body Xray for metal and if clear, get MRI); recommend CTA Head w/ wo contrast; aspirin 81 mg peg qday; further testing based on imaging findings. 4. Encephalitis - no evidence noted per initial CSF findings. 5. Catatonic state - continue above workup to r/o alternate etiology for hypoa ctive state. 6. Schizoaffective d/o - per psychiatry. 7. Spoke to primary attending regarding the need for transfer to a facility w/ continuous EEG monitoring for a higher level of neurologic care. Recommend q1 hour neurochecks. Woody Nails MD Neurology Subjective Date of service: 08/17/20 Principal diagnosis: C diff Interval history: 60 yo female with schizoaffective d/o with noted concern for catatonia but EEG revealing status epilepticus. Initiated on fosphenytoin bolus dose and then continued on a higher-dosed maintenance regimen of Depakote and initiated on Kep pra. No clinical seizure activity noted yesterday w/ possible improvement in mentation yesterday. Objective - Exam Narrative Exam: Gen: nad; Head: normocephalic; Eyes: no gaze deviation; no ptosis; ENT: no vocalization; CVS: warm and well-perfused; Pulm: no respiratory distress;; GI: non-distended, +PEG; Ext: no cyanosis or edema appreciated at distal extremities; Skin: no acute rash appreciatedat distal extremities; Heme: no pathologic bruising or ecchymosis at distal extremities; Neuro: somnolent, CN 2 - PERRL, visually tracks, CN 3, 4, 6 - no gaze deviation, CN 5, 7 - open/close eyes spontaneously, CN 8 - hearing grossly intact to vocal stimuli, CN 9, 10 - no spontaneous swallow noted, CN 11/12 - not following commands; Motor - 0/5 at RUE; at least 2/5 at proximal left arm; +twitching noted to begin during exam at left fingers (w/o gaze deviation); 1/5 at BLEs; Sensory - moves to stimuli at left hand and bilateral toes, Cerebellar - not following commands, Gait - deferred secondary to fall risk; NIHSS > 28; Ativan 1 mg iv x 1 dose given and left finger twitches seized (no change in mentation); - Vital Sign Vital Signs - 12hr 08/17/20 08/17/20 04:43 11:45 Temperature 97.5 F L 97.6 F Pulse Rate 86 96 H Respiratory 16 18 Rate Blood Pressure 106/71 121/81 O2 Sat by Pulse 100 100 Oximetry - Laboratory Findings CBC and BMP: 08/15/20 15:26 08/17/20 04:48 Abnormal Lab Findings: Abnormal Labs 07/11/20 07/11/20 07/11/20 21:17 21:17 21:17 WBC 11.7 H Hgb 14.4 H Hct MCH 35 H MCHC 36 H Plt Count Norton % (Auto) Norton # Seg Neutrophils % 72.1 H Seg Neutrophils # 8.5 H PT INR APTT Sodium Potassium 3.5 L Chloride Carbon Dioxide BUN 20 H Creatinine 0.5 L Glucose 122 H POC Glucose Calcium Phosphorus Magnesium AST 86 H ALT 68 H Total Creatine Kinase 1998 H CK-MB (CK-2) Total Protein Albumin Salicylates < 0.3 L Acetaminophen Valproic Acid Phenytoin 07/11/20 07/12/20 07/12/20 21:17 06:26 15:13 WBC Hgb Hct MCH MCHC Plt Count Norton % (Auto) Norton # Seg Neutrophils % Seg Neutrophils # PT INR APTT Sodium Potassium Chloride Carbon Dioxide BUN Creatinine Glucose POC Glucose Calcium Phosphorus Magnesium AST ALT Total Creatine Kinase 1888 H 1852 H CK-MB (CK-2) 14.8 H 9.2 H Total Protein Albumin Salicylates Acetaminophen 5.0 L Valproic Acid Phenytoin 07/13/20 07/13/20 07/14/20 09:33 09:33 01:52 WBC Hgb Hct MCH MCHC Plt Count Norton % (Auto) Norton # Seg Neutrophils % Seg Neutrophils # PT INR APTT Sodium Potassium 2.8 L* 3.2 L Chloride 107.9 H Carbon Dioxide BUN Creatinine 0.3 L Glucose POC Glucose Calcium 7.9 L D Phosphorus Magnesium AST 83 H ALT Total Creatine Kinase 1678 H CK-MB (CK-2) Total Protein 5.3 L D Albumin 3.0 L Salicylates Acetaminophen Valproic Acid Phenytoin 07/14/20 07/15/20 07/16/20 15:48 05:55 08:26 WBC Hgb Hct MCH MCHC Plt Count Norton % (Auto) Norton # Seg Neutrophils % Seg Neutrophils # PT INR APTT Sodium Potassium 2.7 L* 3.1 L Chloride 108.0 H Carbon Dioxide 16 L D 14 L BUN 4 L Creatinine 0.3 L 0.3 L Glucose POC Glucose Calcium 8.3 L Phosphorus 2.40 L Magnesium AST ALT Total Creatine Kinase 828 H 425 H 188 H CK-MB (CK-2) Total Protein Albumin Salicylates Acetaminophen Valproic Acid Phenytoin 07/17/20 07/17/20 07/18/20 05:21 05:21 05:53 WBC 12.1 H 11.6 H Hgb Hct MCH MCHC Plt Count Norton % (Auto) 7.9 H Norton # 0.9 H Seg Neutrophils % 70.7 H Seg Neutrophils # 8.2 H PT INR APTT Sodium Potassium 3.2 L Chloride Carbon Dioxide BUN Creatinine Glucose POC Glucose Calcium Phosphorus 2.40 L Magnesium AST ALT Total Creatine Kinase CK-MB (CK-2) Total Protein Albumin Salicylates Acetaminophen Valproic Acid Phenytoin 07/18/20 07/19/20 07/19/20 05:53 08:12 08:12 WBC Hgb Hct MCH 33 H MCHC 35 H Plt Count Norton % (Auto) Norton # Seg Neutrophils % Seg Neutrophils # PT INR APTT Sodium Potassium Chloride 108.3 H Carbon Dioxide 17 L BUN 5 L Creatinine 0.3 L Glucose POC Glucose Calcium 8.3 L Phosphorus 2.30 L Magnesium AST ALT Total Creatine Kinase CK-MB (CK-2) Total Protein Albumin Salicylates Acetaminophen Valproic Acid 7.7 L Phenytoin 07/21/20 07/22/20 07/23/20 06:35 06:59 07:27 WBC Hgb Hct MCH MCHC Plt Count Norton % (Auto) Norton # Seg Neutrophils % Seg Neutrophils # PT INR APTT Sodium 146 H Potassium 2.0 L* D 2.2 L* Chloride Carbon Dioxide 32 H BUN 2 L < 1 L < 1 L Creatinine 0.2 L 0.2 L 0.4 L D Glucose 139 H 130 H 574 H* POC Glucose Calcium 8.0 L 7.0 L D Phosphorus Magnesium 1.60 L AST ALT Total Creatine Kinase CK-MB (CK-2) Total Protein Albumin Salicylates Acetaminophen Valproic Acid Phenytoin 07/23/20 07/23/20 07/23/20 10:58 11:16 16:50 WBC Hgb Hct MCH MCHC Plt Count Norton % (Auto) Norton # Seg Neutrophils % Seg Neutrophils # PT INR APTT Sodium 146 H Potassium 3.5 L D Chloride Carbon Dioxide 31 H BUN 2 L Creatinine 0.2 L Glucose 112 H POC Glucose 111 H 137 H Calcium 8.3 L D Phosphorus Magnesium AST ALT Total Creatine Kinase CK-MB (CK-2) Total Protein Albumin Salicylates Acetaminophen Valproic Acid Phenytoin 07/23/20 07/24/20 07/24/20 22:33 06:00 08:47 WBC Hgb Hct MCH MCHC Plt Count Norton % (Auto) Norton # Seg Neutrophils % Seg Neutrophils # PT INR APTT Sodium 146 H Potassium 3.0 L Chloride Carbon Dioxide 31 H BUN Creatinine 0.3 L Glucose 140 H POC Glucose 153 H 118 H Calcium Phosphorus Magnesium AST ALT Total Creatine Kinase CK-MB (CK-2) Total Protein Albumin Salicylates Acetaminophen Valproic Acid Phenytoin 07/24/20 07/24/20 07/25/20 12:04 17:34 05:58 WBC Hgb Hct MCH MCHC Plt Count Norton % (Auto) Norton # Seg Neutrophils % Seg Neutrophils # PT INR APTT Sodium Potassium Chloride Carbon Dioxide BUN Creatinine Glucose POC Glucose 126 H 146 H 141 H Calcium Phosphorus Magnesium AST ALT Total Creatine Kinase CK-MB (CK-2) Total Protein Albumin Salicylates Acetaminophen Valproic Acid Phenytoin 07/25/20 07/25/20 07/25/20 08:09 09:53 12:07 WBC Hgb Hct MCH MCHC Plt Count Norton % (Auto) Norton # Seg Neutrophils % Seg Neutrophils # PT INR APTT Sodium Potassium Chloride Carbon Dioxide BUN Creatinine 0.2 L Glucose 115 H POC Glucose 138 H 131 H Calcium 8.2 L Phosphorus Magnesium AST ALT Total Creatine Kinase CK-MB (CK-2) Total Protein Albumin Salicylates Acetaminophen Valproic Acid Phenytoin 07/25/20 07/25/20 07/26/20 17:35 22:31 05:43 WBC Hgb Hct MCH MCHC Plt Count Norton % (Auto) Norton # Seg Neutrophils % Seg Neutrophils # PT INR APTT Sodium Potassium Chloride Carbon Dioxide BUN Creatinine Glucose POC Glucose 125 H 130 H 153 H Calcium Phosphorus Magnesium AST ALT Total Creatine Kinase CK-MB (CK-2) Total Protein Albumin Salicylates Acetaminophen Valproic Acid Phenytoin 07/26/20 07/26/20 07/26/20 07:30 07:30 12:01 WBC Hgb Hct MCH 33 H MCHC Plt Count 464 H Norton % (Auto) Norton # Seg Neutrophils % 71.4 H Seg Neutrophils # PT INR APTT Sodium Potassium Chloride Carbon Dioxide BUN Creatinine 0.3 L Glucose 144 H POC Glucose 134 H Calcium Phosphorus Magnesium AST ALT Total Creatine Kinase CK-MB (CK-2) Total Protein Albumin Salicylates Acetaminophen Valproic Acid Phenytoin 07/26/20 07/27/20 07/27/20 17:08 06:11 09:25 WBC Hgb Hct MCH MCHC Plt Count Norton % (Auto) Norton # Seg Neutrophils % Seg Neutrophils # PT INR APTT Sodium 136 L Potassium Chloride Carbon Dioxide BUN Creatinine 0.3 L Glucose 120 H POC Glucose 106 H 128 H Calcium Phosphorus Magnesium AST ALT Total Creatine Kinase CK-MB (CK-2) Total Protein Albumin Salicylates Acetaminophen Valproic Acid Phenytoin 07/27/20 07/27/20 07/27/20 12:51 17:41 23:40 WBC Hgb Hct MCH MCHC Plt Count Norton % (Auto) Norton # Seg Neutrophils % Seg Neutrophils # PT INR APTT Sodium Potassium Chloride Carbon Dioxide BUN Creatinine Glucose POC Glucose 124 H 111 H 148 H Calcium Phosphorus Magnesium AST ALT Total Creatine Kinase CK-MB (CK-2) Total Protein Albumin Salicylates Acetaminophen Valproic Acid Phenytoin 07/28/20 07/28/20 07/28/20 05:00 06:14 11:25 WBC Hgb Hct MCH MCHC Plt Count Norton % (Auto) Norton # Seg Neutrophils % Seg Neutrophils # PT INR APTT Sodium 135 L Potassium 5.1 H Chloride Carbon Dioxide 21 L BUN Creatinine 0.3 L Glucose 131 H POC Glucose 161 H 143 H Calcium Phosphorus Magnesium AST ALT Total Creatine Kinase CK-MB (CK-2) Total Protein Albumin Salicylates Acetaminophen Valproic Acid Phenytoin 07/28/20 07/28/20 07/29/20 18:06 23:53 05:36 WBC Hgb Hct MCH MCHC Plt Count Norton % (Auto) Norton # Seg Neutrophils % Seg Neutrophils # PT INR APTT Sodium Potassium Chloride Carbon Dioxide BUN Creatinine 0.3 L Glucose 149 H POC Glucose 160 H 118 H Calcium Phosphorus Magnesium AST ALT Total Creatine Kinase CK-MB (CK-2) Total Protein Albumin Salicylates Acetaminophen Valproic Acid Phenytoin 07/29/20 07/29/20 07/29/20 06:46 12:08 17:29 WBC Hgb Hct MCH MCHC Plt Count Norton % (Auto) Norton # Seg Neutrophils % Seg Neutrophils # PT INR APTT Sodium Potassium Chloride Carbon Dioxide BUN Creatinine Glucose POC Glucose 119 H 126 H 148 H Calcium Phosphorus Magnesium AST ALT Total Creatine Kinase CK-MB (CK-2) Total Protein Albumin Salicylates Acetaminophen Valproic Acid Phenytoin 07/29/20 07/30/20 07/30/20 23:49 05:48 17:48 WBC Hgb Hct MCH MCHC Plt Count Norton % (Auto) Norton # Seg Neutrophils % Seg Neutrophils # PT INR APTT Sodium Potassium Chloride Carbon Dioxide BUN Creatinine Glucose POC Glucose 119 H 119 H 110 H Calcium Phosphorus Magnesium AST ALT Total Creatine Kinase CK-MB (CK-2) Total Protein Albumin Salicylates Acetaminophen Valproic Acid Phenytoin 07/31/20 07/31/20 07/31/20 11:55 12:34 17:18 WBC Hgb Hct MCH MCHC Plt Count Norton % (Auto) Norton # Seg Neutrophils % Seg Neutrophils # PT INR APTT Sodium 134 L Potassium Chloride 97.0 L Carbon Dioxide 21 L BUN 19 H Creatinine 0.3 L Glucose 116 H POC Glucose 119 H 124 H Calcium Phosphorus Magnesium AST ALT Total Creatine Kinase CK-MB (CK-2) Total Protein Albumin Salicylates Acetaminophen Valproic Acid Phenytoin 07/31/20 08/01/20 08/01/20 23:30 06:22 06:45 WBC Hgb Hct MCH MCHC Plt Count Norton % (Auto) Norton # Seg Neutrophils % Seg Neutrophils # PT INR APTT Sodium 136 L Potassium Chloride 97.9 L Carbon Dioxide BUN Creatinine 0.3 L Glucose 122 H POC Glucose 138 H 123 H Calcium Phosphorus Magnesium AST ALT Total Creatine Kinase CK-MB (CK-2) Total Protein Albumin Salicylates Acetaminophen Valproic Acid Phenytoin 08/01/20 08/02/20 08/02/20 18:17 00:51 06:48 WBC Hgb Hct MCH MCHC Plt Count Norton % (Auto) Norton # Seg Neutrophils % Seg Neutrophils # PT INR APTT Sodium Potassium Chloride Carbon Dioxide BUN Creatinine Glucose POC Glucose 111 H 109 H 123 H Calcium Phosphorus Magnesium AST ALT Total Creatine Kinase CK-MB (CK-2) Total Protein Albumin Salicylates Acetaminophen Valproic Acid Phenytoin 08/02/20 08/02/20 08/02/20 12:51 17:55 22:18 WBC Hgb Hct MCH MCHC Plt Count Norton % (Auto) Norton # Seg Neutrophils % Seg Neutrophils # PT INR APTT Sodium Potassium Chloride Carbon Dioxide BUN Creatinine Glucose POC Glucose 135 H 119 H 117 H Calcium Phosphorus Magnesium AST ALT Total Creatine Kinase CK-MB (CK-2) Total Protein Albumin Salicylates Acetaminophen Valproic Acid Phenytoin 08/03/20 08/03/20 08/03/20 05:45 06:05 12:15 WBC Hgb Hct MCH MCHC Plt Count Norton % (Auto) Norton # Seg Neutrophils % Seg Neutrophils # PT INR APTT Sodium 135 L Potassium 5.4 H D Chloride 96.2 L Carbon Dioxide BUN Creatinine 0.4 L Glucose 117 H POC Glucose 109 H 127 H Calcium Phosphorus Magnesium AST ALT Total Creatine Kinase CK-MB (CK-2) Total Protein Albumin Salicylates Acetaminophen Valproic Acid Phenytoin 08/03/20 08/03/20 08/04/20 17:00 22:35 05:59 WBC Hgb Hct MCH MCHC Plt Count Norton % (Auto) Norton # Seg Neutrophils % Seg Neutrophils # PT INR APTT Sodium Potassium Chloride Carbon Dioxide BUN Creatinine Glucose POC Glucose 117 H 114 H 115 H Calcium Phosphorus Magnesium AST ALT Total Creatine Kinase CK-MB (CK-2) Total Protein Albumin Salicylates Acetaminophen Valproic Acid Phenytoin 08/04/20 08/04/20 08/05/20 17:00 23:58 06:33 WBC Hgb Hct MCH MCHC Plt Count Norton % (Auto) Norton # Seg Neutrophils % Seg Neutrophils # PT INR APTT Sodium Potassium Chloride Carbon Dioxide BUN Creatinine Glucose POC Glucose 123 H 110 H 115 H Calcium Phosphorus Magnesium AST ALT Total Creatine Kinase CK-MB (CK-2) Total Protein Albumin Salicylates Acetaminophen Valproic Acid Phenytoin 08/06/20 08/06/20 08/07/20 08:59 12:27 00:39 WBC Hgb Hct MCH MCHC Plt Count Norton % (Auto) Norton # Seg Neutrophils % Seg Neutrophils # PT INR APTT Sodium 133 L Potassium Chloride 97.0 L Carbon Dioxide BUN Creatinine 0.3 L Glucose 130 H POC Glucose 112 H 55 L Calcium Phosphorus Magnesium AST 63 H ALT Total Creatine Kinase CK-MB (CK-2) Total Protein Albumin 3.8 L Salicylates Acetaminophen Valproic Acid Phenytoin 08/07/20 08/07/20 08/07/20 05:36 07:19 07:19 WBC Hgb 15.2 H Hct 45.5 H MCH 33 H MCHC Plt Count 663 H Norton % (Auto) Norton # Seg Neutrophils % Seg Neutrophils # PT INR APTT Sodium 136 L Potassium Chloride 97.9 L Carbon Dioxide BUN Creatinine 0.3 L Glucose 123 H POC Glucose 118 H Calcium Phosphorus Magnesium AST ALT Total Creatine Kinase CK-MB (CK-2) Total Protein Albumin Salicylates Acetaminophen Valproic Acid Phenytoin 08/07/20 08/08/20 08/08/20 15:47 05:24 11:42 WBC Hgb Hct MCH MCHC Plt Count Norton % (Auto) Norton # Seg Neutrophils % Seg Neutrophils # PT 11.7 L INR 0.84 L APTT Sodium Potassium Chloride Carbon Dioxide BUN Creatinine Glucose POC Glucose 115 H 113 H Calcium Phosphorus Magnesium AST ALT Total Creatine Kinase CK-MB (CK-2) Total Protein Albumin Salicylates Acetaminophen Valproic Acid Phenytoin 08/08/20 08/09/20 08/09/20 22:24 07:05 07:05 WBC Hgb Hct MCH 34 H MCHC 36 H Plt Count 539 H Norton % (Auto) Norton # Seg Neutrophils % Seg Neutrophils # PT INR APTT Sodium 135 L Potassium 5.2 H Chloride Carbon Dioxide BUN Creatinine 0.4 L Glucose POC Glucose 109 H Calcium Phosphorus Magnesium AST ALT Total Creatine Kinase CK-MB (CK-2) Total Protein Albumin Salicylates Acetaminophen Valproic Acid Phenytoin 08/09/20 08/10/20 08/11/20 23:30 13:00 12:10 WBC Hgb Hct MCH MCHC Plt Count Norton % (Auto) Norton # Seg Neutrophils % Seg Neutrophils # PT INR APTT Sodium Potassium Chloride Carbon Dioxide 21 L BUN Creatinine 0.3 L Glucose POC Glucose 208 H 118 H Calcium Phosphorus Magnesium AST ALT Total Creatine Kinase CK-MB (CK-2) Total Protein Albumin Salicylates Acetaminophen Valproic Acid Phenytoin 08/11/20 08/11/20 08/12/20 17:49 23:31 06:18 WBC Hgb Hct MCH MCHC Plt Count Norton % (Auto) Norton # Seg Neutrophils % Seg Neutrophils # PT INR APTT Sodium Potassium Chloride Carbon Dioxide BUN Creatinine Glucose POC Glucose 139 H 133 H 132 H Calcium Phosphorus Magnesium AST ALT Total Creatine Kinase CK-MB (CK-2) Total Protein Albumin Salicylates Acetaminophen Valproic Acid Phenytoin 08/12/20 08/12/20 08/13/20 12:17 16:40 00:17 WBC Hgb Hct MCH MCHC Plt Count Norton % (Auto) Norton # Seg Neutrophils % Seg Neutrophils # PT INR APTT Sodium Potassium Chloride Carbon Dioxide BUN Creatinine Glucose POC Glucose 124 H 109 H 128 H Calcium Phosphorus Magnesium AST ALT Total Creatine Kinase CK-MB (CK-2) Total Protein Albumin Salicylates Acetaminophen Valproic Acid Phenytoin 08/13/20 08/13/20 08/13/20 06:18 16:50 22:40 WBC Hgb Hct MCH MCHC Plt Count Norton % (Auto) Norton # Seg Neutrophils % Seg Neutrophils # PT INR APTT Sodium Potassium Chloride Carbon Dioxide BUN Creatinine Glucose POC Glucose 115 H 119 H 109 H Calcium Phosphorus Magnesium AST ALT Total Creatine Kinase CK-MB (CK-2) Total Protein Albumin Salicylates Acetaminophen Valproic Acid Phenytoin 08/14/20 08/14/20 08/15/20 05:13 12:03 09:24 WBC Hgb Hct MCH MCHC Plt Count Norton % (Auto) Norton # Seg Neutrophils % Seg Neutrophils # PT INR APTT Sodium 134 L Potassium Chloride Carbon Dioxide 14 L D BUN Creatinine 0.3 L Glucose 121 H POC Glucose 122 H 126 H Calcium Phosphorus Magnesium AST ALT Total Creatine Kinase CK-MB (CK-2) Total Protein Albumin Salicylates Acetaminophen Valproic Acid Phenytoin 08/15/20 08/15/20 08/15/20 12:03 15:26 17:08 WBC Hgb Hct MCH MCHC Plt Count Norton % (Auto) Norton # Seg Neutrophils % Seg Neutrophils # PT INR APTT 20.4 L Sodium Potassium Chloride Carbon Dioxide BUN Creatinine Glucose POC Glucose 108 H 137 H Calcium Phosphorus Magnesium AST ALT Total Creatine Kinase CK-MB (CK-2) Total Protein Albumin Salicylates Acetaminophen Valproic Acid Phenytoin 08/15/20 08/16/20 08/16/20 23:11 11:56 11:56 WBC Hgb Hct MCH MCHC Plt Count Norton % (Auto) Norton # Seg Neutrophils % Seg Neutrophils # PT INR APTT Sodium 131 L Potassium Chloride 91.6 L Carbon Dioxide BUN Creatinine 0.3 L Glucose 169 H POC Glucose 152 H Calcium Phosphorus Magnesium AST ALT Total Creatine Kinase CK-MB (CK-2) Total Protein Albumin Salicylates Acetaminophen Valproic Acid Phenytoin 8.9 L 08/16/20 08/17/20 08/17/20 16:45 04:48 05:26 WBC Hgb Hct MCH MCHC Plt Count Norton % (Auto) Norton # Seg Neutrophils % Seg Neutrophils # PT INR APTT Sodium 134 L Potassium Chloride 94.4 L Carbon Dioxide BUN Creatinine 0.3 L Glucose 122 H POC Glucose 125 H 122 H Calcium Phosphorus Magnesium AST ALT Total Creatine Kinase CK-MB (CK-2) Total Protein Albumin Salicylates Acetaminophen Valproic Acid Phenytoin
[2020-08-17] MEDS: levETIRAcetam 1,500 MG in DEXTROSE 5% IN WATER 100 ML IV SCH ×2 (15:53→22:12)
[2020-08-17] MEDS: LACOSAMIDE 200 MG in SODIUM CHLORIDE 0.9% 100 ML IV SCH (16:34)
--- NOTE | 2020-08-17 18:17 | Progress Note ---
Assessment and Plan - Patient Problems (1) Status epilepticus Current Visit: Yes Status: Acute Plan to address problem: RN reported seizure activity on on 08/05; Ativan was ordered however was not administered because according to the dayshift RN he was reported that the patient "did not need the medication because she was not having a seizure at the moment". After reviewing nursing notes it is noted that she had reported seizure activity by RN on 08/12 and was given Ativan. Hospitalist was informed No seizure activity reported since Neurology consulted EEG no no status epilepticus Fosphenytoin and Keppra ordered Patient is already on valproate Per neurology: Patient will require transfer to a facility w/ cEEG monitoring for higher level of care as EEG here is intermittently available and intermittently read at present; increase depakote to 1000 mg bid (bolus of 500 mg via peg); increase Keppra to 1500 mg bid; initiate vimpat 200 mg iv q12; s/p Ativan 1 mg IV x 1 dose given; pending MRI Brain w/ wo contrast. Recommend q1 hour neurochecks. (2) Schizoaffective disorder Current Visit: Yes Status: Chronic Plan to address problem: Patient admitted catatonic state and is nonverbal and not following commands Psychiatric consult completed; does not recommend inpatient at this time Haldol as needed, Depakote, Zyprexa Supportive care (3) Hyponatremia Current Visit: Yes Status: Acute Plan to address problem: Admit sodium 142 07/31 134, slight hyponatremia at this time no intervention needed, 08/01 Na 136 however she has remained hyponatremic Hydration with free water flush; 50ml q6 hours while hyponatremic-> informed RN on 08/06 08/07 sodium 136 08/09 sodium 135 Trend BMP 08/10 sodium 141 08/15 sodium 134; informed RN FWF are ordered to be 50 mL every 6 while hyponatremic 08/16 sodium 131, nutrition notes reviewed and FWF seems to be changed 100 mL q4 hours 08/17 sodium 134 I relayed persistent hyponatremia to nutrition and FWF orders have been changed. (4) Metabolic encephalopathy Current Visit: Yes Status: Acute Plan to address problem: Multifactorial , schizoaffective disorder 07/11 CT head Normal nonenhanced CT scan of the brain Patient came from [place], psych evaluation noted Psych recommends outpt f/u 08/14 neurology consult: Recommends obtaining EEG, LP, CTA head, MRI brain with and without contrast 08/15 CT head shows no acute abnormalities and no changes since 07/11/202008/16: LP under fluoroscopy completed. CSF analysis shows no evidence of encephalitis 08/16 MRI brain with/without contrast pending: Shows no acute abnormalities Supportive care (5) Hypochloremia Current Visit: Yes Status: Acute Plan to address problem: 07/31 chloride 97, 08/02 chloride 97.9, 08/06 chloride 97.0, 08/07 chloride 97.0, 08/09 chloride 98, 08/16 Cl 91.6, 08/20 Cl 94 Patient on tube feedings with FWF We will continue to monitor Trend BMP (6) Discharge planning issues Current Visit: Yes Status: Acute Plan to address problem: Patient's identity is not confirmed [facility] has been contacted to aid in identification however unsuccessful [facility] Department have been contacted Inpatient records requested from [facility] again on 08/02 Risk-management made aware of patient again on 08/02 Patient identification confirmed with [facility] Attempted to contact children, CM has an email address and an email was sent over the weekend however there is been no reply 08/07: 2 physician consent for PEG tube obtained and GI consulted for PEG tube placement 08/09: PEG tube placed, resume tube feeds within 4 hours [facility] in the process of assuming guardianship over the patient for placement 08/14 ethics consulted 08/17 Dr. Nails requested a transfer to another facility for continuous EEG as the patient may be in status epilepticus (7) DVT prophylaxis Current Visit: Yes Status: Acute Plan to address problem: SCDs to bilateral lower extremities while in bed Heparin subcu History Interval history: 60-year-old female patient with schizoaffective disorder with active h allucinations and confusion presented from [place] for altered mental status and poor intake on 07/13. She was found to have rhabdomyolysis and electrolyte imbalances. She then developed C. difficile diarrhea and she has completed her regimen of p.o. vancomycin from 07/20-08/03. Patient remains in catatonic state does not follow any commands and is nonverbal. She had a Dobbhoff tube in place with tube feeds infusing. No acute events reported overnight. Patient was found in the [facility] Department records and her family has been contacted via email with no response. No acute events reported overnight. Dr. Nails stated while EEG was being performed the tach relayed to him that patient seems to be in status epilepticus therefore he ordered another EEG. However he also requested patient can be transferred to another facility for continuous EEG monitoring as this is not available here. I discussed with nutrition this morning about her persistent hyponatremia and asked for change in free water flush orders. 07/13; patient's CK levels trending down on 1678, continue IV hydration patient is more alert at times, hallucinating, Noncommunicative, severe hypokalemia, replace per protocol 07/14; potassium level significantly improved today to 3.2, replenish per protocol. CK levels trending down 828, continue IV hydration, monitor electrolytes 07/15; patient refused potassium yesterday today potassium levels again 2.7 We will add KCl to IV fluids, and IV K riders, monitor electrolytes. CK level 425. Refusing to eat confused noncommunicative. Possible inpatient psych adm ission when medically stable 07/16; rhabdomyolysis resolved, mild electrolyte imbalances, if corrected medically stable for inpatient psych placement 07/17: replete K and phosphate. repeat CBc BMP tomorrow. White count needs to be < 10 for inpt psych admission 07/18: cont to have mildly elevated white count, c/o loose stool. will check for C. def - start flagyl and cipro 07/19: White count normal today. change medications to Po. medically stable to go for inpt psych unit. 07/20; positive for C. def. patient not eating properly, refusing meds time to time. Psych now recommended outpt f/u. CM working on placement. Patient remains nonverbal, does not follow any commend and not giving any personal info. 07/21; K 2.0 today, cont to replete, follow BMP, patient remains nonverbal and not cooperative. refuses to eat and meds. cont d51/2NS. if condition doesnot improve will consider TF 07/22: Potassium level persistently remains low, magnesium 1.6 today. Will replete magnesium and potassium. Patient refusing meds and not eating at all per RN report. Totally noncooperative during the encounternot respond to any question. Keeps her eye closing and covering her face with her forearm. Will order for tube feeding and Dobbhoff tube. Continue to follow. We will also add Megace to boost appetite. 07/23: started on TF, follow BMP, change iv fluid to 1/2 NS. patient remains nonverbal 07/24; clinically unchanged, replete K, iv fluid and TF. reconsult psych as patient remains in catatonic phase 07/25: psych recommendation noted, continue tube feeding, continue to replete electrolytes as needed, follow BMP. I strongly believe her severe electrolytes derangement and encephalopathy related to her catatonia, poor oral intake other than any underlying medical conditions. There is no family contact in file, no home address available, patient appeared to be unfunded. new car sales manager working o n placement. 07/26: psych recommendation noted, continue tube feeding, continue to replete electrolytes as needed, follow BMP. I strongly believe her severe electrolytes derangement and encephalopathy related to her catatonia, poor oral intake other than any underlying medical conditions. There is no family contact in file, no home address available, patient appeared to be unfunded. new car sales manager working on placement. 07/27; continue with tube feeding. There is no family contact in file, no home address available, patient appeared to be unfunded. Case management is following. 07/28; patient still on tube feeding, patient is noncommunicative. I believe her condition is related to her catatonia. Psych is following her. Currently her electrolytes are corrected. There is no family contact in file, no home address available, patient appeared to be unfunded. Case management is following. 07/29 patient is nonverbal, eyes open does not follow simple commands,, still having low-grade fever T-max 100 degrees,, lab results reviewed discussed with RN- still has loose stools, community case manager notes reviewed, unable to contact family 07/30 no acute events overnight, diarrhea improved, stop IV fluids, disposition to be decided 07/31: chief administrative officer presented to the bedside to attempt to fingerprint the patient to identify her. However his machine was not working 08/01:' Per community case manager note [facility] [employer] has been contacted to help in identifying the patient. On officer is to report to bedside and was instructed to call the community case manager upon arrival. 08/02/2020 still has diarrhea 08/03/2020 diarrhea improving. Today is the last day of vancomycin 08/04/2020 patient has no diarrhea 08/05: shift supervisor RN reported patient had a seizure overnight, Ativan was ordered however was not administered because according to the dayshift RN he was reported that the patient "did not need the medication because she was not having a seizure at the moment". Patient remained hyponatremic and hypochloremic and after conversing with the nurse patient was not getting her prescribed dose FWF for hyponatremia which was corrected 08/06: Electrolyte imbalance discontinue, patient still catatonic 08/07: Electrolyte imbalances continue, to physician consent for PEG tube obtained and GI consulted 08/08: PEG scheduled for 08/09 08/09: s/p PEG placement with GI, hyperkalemic (potassium 5.2) s/p PA Kayexalate. 08/11; patient is on PEG tube feeding. C. difficile treated and resolved. Patient still in catatonic state. Pending guardianship. 08/12/2020 patient on PEG tube feeding. Guardianship pending. Pending placement. 08/13: no aucte events reported overnight, gaurdenship pending. 08/14/20: quality and futility of care is questionable, patient not following any commands, pupillary reflex noted, neurology and ethics consult placed 08/15: Neurology recommended LP, EEG, CT head and MRI brain with and without contrast which are all pending. 08/16: Physician consult obtained for LP which was completed today. Bilateral lower extremity x-rays noted no metal and a physician consent was obtained for contrast therefore MRI brain pending. EEG still pending. Patient again has hyp ochloremia and hyponatrem Hospitalist Physical - Physical exam Narrative exam: General appearance: Present: no acute distress, other (Nonverbal, awake) - EENT Eyes: Present: PERRL - Neck Neck: Present: supple, normal ROM - Respiratory Respiratory effort: normal Respiratory: bilateral: CTA - Cardiovascular Rhythm: regular Heart Sounds: Present: S1 & S2. Absent: systolic murmur, diastolic murmur - Extremities Extremities: no ischemia, pulses intact, pulses symmetrical, No edema, normal temperature, normal color, Full ROM Peripheral Pulses: within normal limits - Abdominal General gastrointestinal: soft, non-tender, non-distended, normal bowel sounds - Integumentary Integumentary: Present: clear, warm, dry - Psychiatric Psychiatric: other (Patient is nonverbal, does not follow any commands however does withdraw to pain to all 4 extremities) - Neurologic Neurologic: moves all extremities (spontaneously) - Constitutional Vitals: Temp Pulse Resp BP Pulse Ox 97.6 F 88 16 126/76 100 08/17/20 16:16 08/17/20 16:16 08/17/20 16:16 08/17/20 16:16 08/17/20 16:16 General appearance: Present: no acute distress, well-nourished HEART Score - HEART Score Risk factors: 1-2 risk factors Troponin: Troponin T < 0.010 ng/mL (0.00-0.029) 07/11/20 21:17 Troponin: < normal limit - Critical Actions Critical Actions: 0-3 pts:0.9-1.7%risk of adverse cardiac event.Candidate for discharge Results - Labs CBC & Chem 7: 08/15/20 15:26 08/17/20 04:48 Labs: Laboratory Last Values WBC 10.9 K/mm3 (4.5-11.0) 08/09/20 07:05 RBC 4.06 M/mm3 (3.65-5.03) 08/09/20 07:05 Hgb 14.0 gm/dl (10.1-14.3) 08/09/20 07:05 Hct 38.9 % (30.3-42.9) D 08/09/20 07:05 MCV 96 fl (79-97) 08/09/20 07:05 MCH 34 pg (28-32) H 08/09/20 07:05 MCHC 36 % (30-34) H 08/09/20 07:05 RDW 14.6 % (13.2-15.2) 08/09/20 07:05 Plt Count 400 K/mm3 (140-440) 08/15/20 15:26 Lymph % (Auto) 21.6 % (13.4-35.0) 07/26/20 07:30 [place] % (Auto) 6.2 % (0.0-7.3) 07/26/20 07:30 Eos % (Auto) 0.5 % (0.0-4.3) 07/26/20 07:30 Baso % (Auto) 0.3 % (0.0-1.8) 07/26/20 07:30 Lymph # (Auto) 2.0 K/mm3 (1.2-5.4) 07/26/20 07:30 [place] # (Auto) 0.6 K/mm3 (0.0-0.8) 07/26/20 07:30 Eos # (Auto) 0.1 K/mm3 (0.0-0.4) 07/26/20 07:30 Baso # (Auto) 0.0 K/mm3 (0.0-0.1) 07/26/20 07:30 Seg Neutrophils % 71.4 % (40.0-70.0) H 07/26/20 07:30 Seg Neutrophils # 6.8 K/mm3 (1.8-7.7) 07/26/20 07:30 PT 12.5 Sec. (12.2-14.9) 08/15/20 15:26 INR 0.92 (0.87-1.13) 08/15/20 15:26 APTT 20.4 Sec. (24.2-36.6) L 08/15/20 15:26 Sodium 134 mmol/L (137-145) L 08/17/20 04:48 Potassium 4.9 mmol/L (3.6-5.0) 08/17/20 04:48 Chloride 94.4 mmol/L (98-107) L 08/17/20 04:48 Carbon Dioxide 23 mmol/L (22-30) 08/17/20 04:48 Anion Gap 22 mmol/L 08/17/20 04:48 BUN 12 mg/dL (7-17) 08/17/20 04:48 Creatinine 0.3 mg/dL (0.6-1.2) L 08/17/20 04:48 Estimated GFR > 60 ml/min 08/17/20 04:48 BUN/Creatinine Ratio 40 % 08/17/20 04:48 Glucose 122 mg/dL (65-100) H 08/17/20 04:48 POC Glucose 126 (70-105) H 08/17/20 16:30 Lactic Acid 1.50 mmol/L (0.7-2.0) 07/12/20 00:04 Phosphorus 3.10 mg/dL (2.5-4.5) 07/24/20 06:00 Magnesium 2.10 mg/dL (1.7-2.3) 07/24/20 06:00 Calcium 8.4 mg/dL (8.4-10.2) 08/17/20 04:48 Direct Bilirubin < 0.2 mg/dL (0-0.2) 07/13/20 09:33 Ammonia 28.0 umol/L (25-60) 07/11/20 21:17 Total Bilirubin 0.40 mg/dL (0.1-1.2) 08/06/20 08:59 Total Creatine Kinase 102 units/L (30-135) 07/17/20 05:21 CK-MB (CK-2) 9.2 ng/mL (0.0-4.0) H 07/12/20 15:13 AST 63 units/L (5-40) H 08/06/20 08:59 ALT 41 units/L (7-56) 08/06/20 08:59 CK-MB (CK-2) Rel Index 0.4 (0-4) 07/12/20 15:13 Alkaline Phosphatase 59 units/L (35-129) 08/06/20 08:59 Troponin T < 0.010 ng/mL (0.00-0.029) 07/11/20 21:17 Total Protein 6.6 g/dL (6.3-8.2) 08/06/20 08:59 Albumin 3.8 g/dL (3.9-5) L 08/06/20 08:59 Albumin/Globulin Ratio 1.4 % 08/06/20 08:59 Urine Color Yellow (Yellow) 07/11/20 Unknown Urine Turbidity Clear (Clear) 07/11/20 Unknown Urine pH 6.0 (5.0-7.0) 07/11/20 Unknown Ur Specific [place] 1.023 (1.003-1.030) 07/11/20 Unknown Urine Protein 30 mg/dl mg/dL (Negative) 07/11/20 Unknown Urine Glucose (UA) Neg mg/dL (Negative) 07/11/20 Unknown Urine Ketones Tr mg/dL (Negative) 07/11/20 Unknown Urine Blood Neg (Negative) 07/11/20 Unknown Urine Nitrite Neg (Negative) 07/11/20 Unknown Urine Bilirubin Neg (Negative) 07/11/20 Unknown Urine Urobilinogen 2.0 mg/dL (<2.0) 07/11/20 Unknown Ur Leukocyte Esterase Neg (Negative) 07/11/20 Unknown Urine WBC (Auto) 2.0 /HPF (0.0-6.0) 07/11/20 Unknown Urine RBC (Auto) 3.0 /HPF (0.0-6.0) 07/11/20 Unknown U Epithel Cells (Auto) 3.0 /HPF (0-13.0) 07/11/20 Unknown Urine Mucus 3+ /HPF 07/11/20 Unknown CSF Appearance Clear 08/16/20 14:18 CSF Color Colorless 08/16/20 14:18 CSF WBC 6 /mm3 (1-10) 08/16/20 14:18 CSF RBC 4 /mm3 (0-0) 08/16/20 14:18 CSF Seg Neutrophils 0 % (0-6) 08/16/20 14:18 CSF Lymphocytes % 90.0 % (40-80) 08/16/20 14:18 CSF Reactive Lymphs 0 % 08/16/20 14:18 CSF Monocytes % 10.0 % (15-45) 08/16/20 14:18 CSF Eosinophils % 0 % 08/16/20 14:18 CSF Basophils 0 % 08/16/20 14:18 CSF Pathologist Review C 08/16/20 14:18 CSF Glucose 60 mg/dL 08/16/20 14:18 CSF Total Protein 94 mg/dL 08/16/20 14:18 Salicylates < 0.3 mg/dL (2.8-20.0) L 07/11/20 21:17 Urine Opiates Screen Presumptive negative 07/11/20 Unknown Urine Methadone Screen Presumptive negative 07/11/20 Unknown Acetaminophen 5.0 ug/mL (10.0-30.0) L 07/11/20 21:17 Ur Barbiturates Screen Presumptive negative 07/11/20 Unknown Ur Phencyclidine Scrn Presumptive negative 07/11/20 Unknown Phenytoin 8.9 ug/mL (10.0-20.0) L 08/16/20 11:56 Ur Amphetamines Screen Presumptive negative 07/11/20 Unknown Valproic Acid 58.9 ug/mL (50-100) 08/17/20 05:28 U Benzodiazepines Scrn Presumptive negative 07/11/20 Unknown Urine Cocaine Screen Presumptive negative 07/11/20 Unknown U Marijuana (THC) Screen Presumptive negative 07/11/20 Unknown Drugs of Abuse Note Disclamer 07/11/20 Unknown C. difficile Tox (PCR) Positive (Negative) 07/19/20 18:51 Enterovirus (PCR) Cmmt 08/16/20 14:18 Microbiology: Microbiology 08/16/20 14:18 Cerebral Spinal Fluid CSF Culture - Preliminary [place]/IV: Voiding Method Incontinent IV Catheter Type [Right INT / Saline Lock Antecubital] IV Catheter Type [Left Forearm INT / Saline Lock ] IV Catheter Type [Right Hand] INT / Saline Lock IV Catheter Type [Right INT / Saline Lock Forearm] IV Catheter Type [Left Hand] INT / Saline Lock Active Medications - Current Medications Current Medications: Generic Name Dose Route Start Last Admin Trade Name Freq PRN Reason Stop Dose Admin Acetaminophen 650 mg 07/12/20 01:05 07/27/20 01:57 Tylenol PA 650 mg Q4H PRN Administration Fever >101 Lipase/Protease/Amylase 1 each 07/22/20 07:44 08/14/20 10:25 Negrito Sprague 10,500 Unit FEEDTUBE 1 each PRN PRN Administration For Clogged Feeding Tube Divalproex Sodium 1,000 mg 08/17/20 22:00 Depakote PO BID KEITH Haloperidol Lactate 5 mg 07/18/20 13:15 07/21/20 22:06 Haldol IM 5 mg Q6H PRN Administration Agitation Heparin Sodium (Porcine) 5,000 unit 07/12/20 10:00 08/17/20 17:10 Heparin SUB-Q 5,000 unit Q8H KEITH Administration Levetiracetam 1,500 mg/ 115 mls @ 400 mls/hr 08/17/20 15:00 08/17/20 15:53 Dextrose IV 400 mls/hr Q12HR KEITH Administration Lacosamide 200 mg/ Sodium 120 mls @ 100 mls/hr 08/17/20 16:00 08/17/20 16:34 Chloride IV 100 mls/hr Q12H KEITH Administration Insulin Human Regular 0 unit 07/23/20 09:00 08/17/20 17:00 Humulin R SUB-Q Not Given Q6HR KEITH Protocol Lorazepam 2 mg 08/06/20 05:05 08/12/20 17:37 Ativan IV 2 mg Q4H PRN Administration Agitation Megestrol Acetate 400 mg 07/22/20 10:00 08/17/20 09:32 Megestrol PO 400 mg QDAY KEITH Administration Olanzapine 2.5 mg 07/25/20 22:00 08/16/20 21:23 Zyprexa PO 2.5 mg QHS KEITH Administration Ondansetron HCl 4 mg 07/12/20 01:06 Zofran IV Q8H PRN Nausea And Vomiting Simple Syrup 15 ml 07/22/20 07:44 Simple Syrup FEEDTUBE PRN PRN Hypoglycemia Simple Syrup 30 ml 07/22/20 07:44 Simple Syrup FEEDTUBE PRN PRN Hypoglycemia Sodium Bicarbonate 325 mg 07/22/20 07:44 Sodium Bicarbonate FEEDTUBE PRN PRN For Clogged Feeding Tube Nutrition/Malnutrition Assess - Dietary Evaluation Nutrition/Malnutrition Findings: Nutrition Notes Start: 07/12/20 11:40 Freq: Status: Active Protocol: Document 08/15/20 13:06 SHIRLEY (Rec: 08/15/20 13:17 SHIRLEY [id number]) Co-Sign 08/15/20 13:06 LM Nutrition Notes Initial or Follow up Reassessment Other Pertinent Diagnosis C. diff (+), AMS, Rhabdomyolysis, dehydration, Hx of stroke Current Diet Osmolite at 35ml/hr Labs/Tests Reviewed Pertinent Medications Reviewed Height 5 ft Weight 52 kg [place] Body Weight (kg) 45.45 BMI 22.4 Subjective/Other Information F/u stable TF. Per nursing notes, pt's TF is stable at 35ml/hr and still well tolerated. Percent of energy/protein needs met: 100%/90% Burn Absent Trauma Absent GI Symptoms None Current % PO Negligible Minimum of two criteria No Energy Intake (severe) < or equal to 50% Estimated Energy Requirement > or equal to 5 days #1 Nutrition Diagnosis Inadequate oral intake Diagnosis Progress(for reassessment Continues documentation) Is patient on ventilator? No Is Patient Ambulatory and/or Out of Bed No REE-([facility]-confined to bed) 1213.032 Calculation Used for Recommendations [facility] Additional Notes Protein Needs 59-70g (1-1.2g/ kg) Fluid Needs: 1ml/kcal Nutrition Intervention Change Diet Order: Continue Nutrition Support: Osmolite 1.5 at 35ml/hr. Flush 60ml q4hr for hyponatremia Flush 100ml q4hr once hyponatremia resolved. Kcal 1,260 Protein (gm) 53 Fluid (mL) 640 Goal #1 Patient meets at least 75% of energy and protein needs via TF Anticipated Discharge Needs: Recommend Jevity 1.2 bolus 5 cans/day: Breakfast 2 cans ( 474ml), Lunch 2 cans (474ml), Dinner 1 can (237ml) with flush 100ml before and after bolus. Follow-Up By: 08/22/20 Additional Comments F/u stable TF and discharge plan
[2020-08-17 20:26] LABS: Blood Urea Nitrogen 11 mg/dL (7-17); Calcium 8.6 mg/dL (8.4-10.2); Hemolysis Index 13
[2020-08-17 20:32] LABS: BUN/Creatinine Ratio 55
[2020-08-17] MEDS ORDERED: levETIRAcetam 1,500 MG in DEXTROSE 5% IN WATER 100 ML IV SCH (22:00)
[2020-08-18] MEDS: INSULIN REGULAR, HUMAN 100 UNIT/ML 3ML VIAL SUB-Q SCH ×4 (00:47→18:00)
[2020-08-18] MEDS: HEPARIN 5,000 UNIT/1 ML VIAL SUB-Q SCH ×3 (02:16→18:58)
[2020-08-18] MEDS: LACOSAMIDE 200 MG in SODIUM CHLORIDE 0.9% 100 ML IV SCH ×2 (03:45→16:35)
[2020-08-18] MEDS: VALPROIC ACID 250 MG/5 ML ORAL LIQD FEEDTUBE SCH ×2 (09:47→22:22)
[2020-08-18] MEDS: MEGESTROL 400 MG/10 ML ORAL LIQD PO SCH (09:48)
[2020-08-18] MEDS: levETIRAcetam 1,500 MG in DEXTROSE 5% IN WATER 100 ML IV SCH ×2 (10:11→22:37)
[2020-08-19] MEDS: INSULIN REGULAR, HUMAN 100 UNIT/ML 3ML VIAL SUB-Q SCH ×4 (00:48→18:00)
[2020-08-19] MEDS: HEPARIN 5,000 UNIT/1 ML VIAL SUB-Q SCH ×2 (02:16→10:00)
[2020-08-19] MEDS: LACOSAMIDE 200 MG in SODIUM CHLORIDE 0.9% 100 ML IV SCH ×2 (03:55→16:21)
[2020-08-19] MEDS: VALPROIC ACID 250 MG/5 ML ORAL LIQD FEEDTUBE SCH ×2 (10:30→22:53)
[2020-08-19] MEDS: MEGESTROL 400 MG/10 ML ORAL LIQD PO SCH (10:31)
[2020-08-19] MEDS: levETIRAcetam 1,500 MG in DEXTROSE 5% IN WATER 100 ML IV SCH ×2 (10:31→22:53)
[2020-08-19 22:08] LABS: ABG Base Excess -2.9 mmol/L (-2.0-3.0); ABG HCO3 18.8 mmol/L (20.0-26.0); ABG Methemoglobin 0.5 % (0.0-1.5); ABG Oxygen Saturation 95.4 % (95.0-99.0); ABG PCO2 25.9 mm Hg; ABG PH 7.478 pH Units (7.350-7.450); ABG PO2 68.2 mm Hg (80.0-90.0)
--- NOTE | 2020-08-20 00:09 | XRay Report ---
CHEST 1 VIEW INDICATION / CLINICAL INFORMATION: Change in respiratory status.. COMPARISON: 07/11/2020 FINDINGS: SUPPORT DEVICES: None. HEART / MEDIASTINUM: Unchanged LUNGS / PLEURA: There are basilar airspace opacities left greater than right.. No pneumothorax. ADDITIONAL FINDINGS: No significant additional findings. IMPRESSION: 1. There is basilar airspace disease which could represent atelectasis or pneumonia. Signer Name: Bj Meyers MD Signed: 08/20/2020 12:05 AM Workstation Name: [id number][id number]
[2020-08-20] MEDS ORDERED: SODIUM BICARB 8.4% 50 MEQ/50 ML SYRINGE IV ONE (00:17)
[2020-08-20] MEDS: HEPARIN 5,000 UNIT/1 ML VIAL SUB-Q SCH ×4 (02:50→17:09)
[2020-08-20] MEDS ORDERED: VANCOMYCIN PHARMACY TO DOSE IV SCH (03:00)
[2020-08-20] MEDS: INSULIN REGULAR, HUMAN 100 UNIT/ML 3ML VIAL SUB-Q SCH ×4 (03:02→19:55)
[2020-08-20] MEDS ORDERED: VANCOMYCIN/NS 1 GM/250 ML 1 GM/250 ML BAG IV ONE (04:00)
[2020-08-20] MEDS: CEFEPIME/NS 2 GM/100 ML 2 GM/100 ML BAG IV SCH ×2 (05:01→13:45)
[2020-08-20] MEDS: LACOSAMIDE 200 MG in SODIUM CHLORIDE 0.9% 100 ML IV SCH ×2 (06:54→17:08)
[2020-08-20] MEDS: VALPROIC ACID 250 MG/5 ML ORAL LIQD FEEDTUBE SCH (09:17)
[2020-08-20] MEDS: MEGESTROL 400 MG/10 ML ORAL LIQD PO SCH (09:17)
[2020-08-20] MEDS: levETIRAcetam 1,500 MG in DEXTROSE 5% IN WATER 100 ML IV SCH (09:32)
[2020-08-20 10:08] LABS: Blood Urea Nitrogen 34 mg/dL (7-17); Calcium 8.3 mg/dL (8.4-10.2); Hemolysis Index 8
[2020-08-20 10:10] LABS: BUN/Creatinine Ratio 57
[2020-08-20] MEDS ORDERED: SODIUM POLYSTYRENE 15 GM/60 ML ORAL LIQD PO NR (11:46)
[2020-08-20] MEDS ORDERED: VANCOMYCIN 750 MG in SODIUM CHLORIDE 0.9% 250ML 250 ML IV SCH (16:00)
--- NOTE | 2020-08-20 16:01 | Progress Note ---
Assessment and Plan (1) Status epilepticus Current Visit: Yes Status: Acute Plan to address problem: RN reported seizure activity on on 08/05; Ativan was ordered however was not administered because according to the dayshift RN he was reported that the patient "did not need the medication because she was not having a seizure at the moment". After reviewing nursing notes it is noted that she had reported seizure activity by RN on 08/12 and was given Ativan. Hospitalist was informed No seizure activity reported since Neurology consulted EEG no no status epilepticus Fosphenytoin and Keppra ordered Patient is already on valproate Per neurology: Patient will require transfer to a facility w/ cEEG monitoring for higher level of care as EEG here is intermittently available and intermittently read at present; increase depakote to 1000 mg bid (bolus of 500 mg via peg); increase Keppra to 1500 mg bid; initiate vimpat 200 mg iv q12; s/p Ativan 1 mg IV x 1 dose given; pending MRI Brain w/ wo contrast. Recommend q1 hour neurochecks. Resolved No need for transfer to tertiary center (2) Schizoaffective disorder Current Visit: Yes Status: Chronic Plan to address problem: Patient admitted catatonic state and is nonverbal and not following commands Psychiatric consult completed; does not recommend inpatient at this time Haldol as needed, Depakote, Zyprexa Supportive care (3) Hyponatremia Current Visit: Yes Status: Acute Plan to address problem: Admit sodium 142 07/31 134, slight hyponatremia at this time no intervention needed, 08/01 Na 136 however she has remained hyponatremic Hydration with free water flush; 50ml q6 hours while hyponatremic-> informed RN on 08/06 08/07 sodium 136 / sodium 135 Trend BMP 08/10 sodium 141 08/15 sodium 134; informed RN FWF are ordered to be 50 mL every 6 while hyponatremic 08/16 sodium 131, nutrition notes reviewed and FWF seems to be changed 100 mL q4 hours 08/17 sodium 134 I relayed persistent hyponatremia to nutrition and FWF orders have been changed. (4) Metabolic encephalopathy Current Visit: Yes Status: Acute Plan to address problem: Multifactorial , schizoaffective disorder 07/11 CT head Normal nonenhanced CT scan of the brain Patient came from [facility], psych evaluation noted Psych recommends outpt f/u 08/14 neurology consult: Recommends obtaining EEG, LP, CTA head, MRI brain with and without contrast 08/15 CT head shows no acute abnormalities and no changes since 07/11/202008/16: LP under fluoroscopy completed. CSF analysis shows no evidence of enc ephalitis 08/16 MRI brain with/without contrast pending: Shows no acute abnormalities Supportive care (5) Hypochloremia Current Visit: Yes Status: Acute Plan to address problem: 07/31 chloride 97, 08/02 chloride 97.9, 08/06 chloride 97.0, 08/07 chloride 97.0, 08/09 chloride 98, 08/16 Cl 91.6, 08/20 Cl 94 Patient on tube feedings with FWF We will continue to monitor Trend BMP (6) Discharge planning issues Current Visit: Yes Status: Acute Plan to address problem: Patient's identity is not confirmed [facility] Department has been contacted to aid in identification however unsuccessful [facility] Department have been contacted Inpatient records requested from [facility] again on 08/02 Risk-management made aware of patient again on 08/02 Patient identification confirmed with [facility] Department Attempted to contact children, CM has an email address and an email was sent over the weekend however there is been no reply 08/07: 2 physician consent for PEG tube obtained and GI consulted for PEG tube placement 08/09: PEG tube placed, resume tube feeds within 4 hours [facility] in the process of assuming guardianship over the patient for placement 08/14 ethics consulted 08/17 Dr. Nails requested a transfer to another facility for continuous EEG as the patient may be in status epilepticus -08/18 seizures stopped last night-- Consider transfer to [facility] canceled. Patient can be managed on antiepileptic meds here (7) DVT prophylaxis Current Visit: Yes Status: Acute Plan to address problem: SCDs to bilateral lower extremities while in bed Heparin subcu Subjective Date of service: 08/18/20 Principal diagnosis: C diff Interval history: Brief history: 60-year-old female patient was sent from [facility] with altered level of consciousness and poor oral intake. Patient has schizoaffective disorder with active hallucinations and confusion, Patient was noted to have rhabdomyolysis and multiple electrolyte imbalances, Rhabdomyolysis is resolved, mild hypokalemia and hypo-phosphatemia - being corrected. Then she developed diarrhea - now positive for C. def, on vancomycin po. Patient remained in catatonic state, does not follow any command, does not want to eat and refuse meds. I strongly believe her electrolytes derangement and encephalopathy related to her catatonia, poor oral intake other than any underlying medical conditions. 07/13; patient's CK levels trending down on 1678, continue IV hydration patient is more alert at times, hallucinating Noncommunicative, severe hypokalemia, replace per protocol 07/14; potassium level significantly improved today to 3.2, replenish per protocol. CK levels trending down 828, continue IV hydration, monitor electrolytes 07/15; patient refused potassium yesterday today potassium levels again 2.7 We will add KCl to IV fluids, and IV K riders, monitor electrolytes. CK level 425. Refusing to eat confused noncommunicative. Possible inpatient psych admission when medically stable 07/16; rhabdomyolysis resolved, mild electrolyte imbalances, if corrected medically stable for inpatient psych placement 07/17: replete K and phosphate. repeat CBc BMP tomorrow. White count needs to be < 10 for inpt psych admission 07/18: cont to have mildly elevated white count, c/o loose stool. will check for C. def - start flagyl and cipro 07/19: White count normal today. change medications to Po. medically stable to go for inpt psych unit. 07/20; positive for C. def. patient not eating properly, refusing meds time to time. Psych now recommended outpt f/u. CM working on placement. Patient remains nonverbal, does not follow any commend and not giving any personal info. 07/21; K 2.0 today, cont to replete, follow BMP, patient remains nonverbal and not cooperative. refuses to eat and meds. cont d51/2NS. if condition doesnot improve will consider TF 07/22: Potassium level persistently remains low, magnesium 1.6 today. Will replete magnesium and potassium. Patient refusing meds and not eating at all per RN report. Totally noncooperative during the encounternot respond to any question. Keeps her eye closing and covering her face with her forearm. Will order for tube feeding and Dobbhoff tube. Continue to follow. We will also add Megace to boost appetite. 07/23: started on TF, follow BMP, change iv fluid to 1/2 NS. patient remains nonverbal 07/24; clinically unchanged, replete K, iv fluid and TF. reconsult psych as patient remains in catatonic phase 07/25: psych recommendation noted, continue tube feeding, continue to replete electrolytes as needed, follow BMP. I strongly believe her severe electrolytes derangement and encephalopathy related to her catatonia, poor oral intake other than any underlying medical conditions. There is no family contact in file, no home address available, patient appeared to be unfunded. investigations manager working on placement. 07/26: psych recommendation noted, continue tube feeding, continue to replete electrolytes as needed, follow BMP. I strongly believe her severe electrolytes derangement and encephalopathy related to her catatonia, poor oral intake other than any underlying medical conditions. There is no family contact in file, no home address available, patient appeared to be unfunded. investigations manager working on placement. 07/27; continue with tube feeding. There is no family contact in file, no home ad dress available, patient appeared to be unfunded. Case management is following. 07/28; patient still on tube feeding, patient is noncommunicative. I believe her condition is related to her catatonia. Psych is following her. Currently her electrolytes are corrected. There is no family contact in file, no home address available, patient appeared to be unfunded. Case management is following. 08/09; patient is still on tube feeding, patient is noncommunicative. Patient will have PEG tube placement today. Case management is following the patient. 08/11; patient is on PEG tube feeding. C. difficile treated and resolved. Patient still in catatonic state. Pending guardianship. 08/12/2020 patient on PEG tube feeding. Guardianship pending. Pending placement. Objective - Constitutional Vitals: Vital Signs - 12hr 08/20/20 08/20/20 08/20/20 06:28 08:25 11:22 Temperature 98.9 F 98.7 F Pulse Rate 112 H 107 H Respiratory 22 16 Rate Blood Pressure 99/56 98/57 O2 Sat by Pulse 98 97 97 Oximetry General appearance: Present: no acute distress, well-nourished - EENT Eyes: PERRL, EOM intact ENT: hearing intact, clear oral mucosa Ears: bilateral: normal - Neck Neck: supple, normal ROM - Respiratory Respiratory effort: normal Respiratory: bilateral: CTA - Breasts Breasts: normal - Cardiovascular Heart rate: 78 Rhythm: regular Heart Sounds: Present: S1 & S2. Absent: gallop, rub Extremities: pulses intact, No edema, normal color, Full ROM - Gastrointestinal General gastrointestinal: Present: soft, non-tender, non-distended, normal bowel sounds, other (peg in place) - Genitourinary Female genitourinary: normal - Integumentary Integumentary: clear, warm, dry - Musculoskeletal Musculoskeletal: 1, strength equal bilaterally - Neurologic Neurologic: moves all extremities - Psychiatric Psychiatric: memory intact, appropriate mood/affect, intact judgment & insight - Labs CBC & Chem 7: 08/15/20 15:26 08/20/20 09:31 Labs: Abnormal lab results 08/19/20 08/19/20 08/19/20 Range/Units 16:54 21:29 23:53 ABG pH 7.478 H 7.496 H (7.350-7.450) pH Units POC ABG pCO2 21.8 L (32.0-48.0) mmHg POC ABG pO2 (83-108) mmHg ABG pO2 68.2 L (80.0-90.0) mm Hg ABG HCO3 18.8 L (20.0-26.0) mmol/L ABG Base Excess -2.9 L (-2.0-3.0) mmol/L ABG Sodium 133.1 L (136.0-145.0) mmol/L ABG Potassium 4.7 H (3.40-4.50) mmol/L ABG Glucose 202 H (65-95) mg/dL Oxyhemoglobin 93.8 L (95.0-99.0) % Potassium (3.6-5.0) mmol/L BUN (7-17) mg/dL Glucose (65-100) mg/dL POC Glucose 113 H (70-105) Calcium (8.4-10.2) mg/dL Arterial Blood Glucose 202 H (65-95) mg/dL Arterial Blood Ionized Calcium (4.6-5.3) mg/dL 08/20/20 08/20/20 08/20/20 Range/Units 00:12 01:52 06:19 ABG pH 7.562 H (7.350-7.450) pH Units POC ABG pCO2 21.0 L (32.0-48.0) mmHg POC ABG pO2 123.7 H (83-108) mmHg ABG pO2 (80.0-90.0) mm Hg ABG HCO3 (20.0-26.0) mmol/L ABG Base Excess (-2.0-3.0) mmol/L ABG Sodium 133.9 L (136.0-145.0) mmol/L ABG Potassium (3.40-4.50) mmol/L ABG Glucose 151 H (65-95) mg/dL Oxyhemoglobin (95.0-99.0) % Potassium (3.6-5.0) mmol/L BUN (7-17) mg/dL Glucose (65-100) mg/dL POC Glucose 183 H 124 H (70-105) Calcium (8.4-10.2) mg/dL Arterial Blood Glucose 151 H (65-95) mg/dL Arterial Blood Ionized Calcium 4.4 L (4.6-5.3) mg/dL 08/20/20 08/20/20 Range/Units 09:31 12:33 ABG pH (7.350-7.450) pH Units POC ABG pCO2 (32.0-48.0) mmHg POC ABG pO2 (83-108) mmHg ABG pO2 (80.0-90.0) mm Hg ABG HCO3 (20.0-26.0) mmol/L ABG Base Excess (-2.0-3.0) mmol/L ABG Sodium (136.0-145.0) mmol/L ABG Potassium (3.40-4.50) mmol/L ABG Glucose (65-95) mg/dL Oxyhemoglobin (95.0-99.0) % Potassium 5.2 H (3.6-5.0) mmol/L BUN 34 H (7-17) mg/dL Glucose 149 H (65-100) mg/dL POC Glucose 109 H (70-105) Calcium 8.3 L (8.4-10.2) mg/dL Arterial Blood Glucose (65-95) mg/dL Arterial Blood Ionized Calcium (4.6-5.3) mg/dL HEART Score - HEART Score Risk factors: 1-2 risk factors Troponin: Troponin T < 0.010 ng/mL (0.00-0.029) 07/11/20 21:17 Troponin: < normal limit - Critical Actions Critical Actions: 0-3 pts:0.9-1.7%risk of adverse cardiac event.Candidate for discharge
--- NOTE | 2020-08-20 16:05 | Progress Note ---
Assessment and Plan (1) Status epilepticus Current Visit: Yes Status: Acute Plan to address problem: RN reported seizure activity on on 08/05; Ativan was ordered however was not administered because according to the dayshift RN he was reported that the patient "did not need the medication because she was not having a seizure at the moment". After reviewing nursing notes it is noted that she had reported seizure activity by RN on 08/12 and was given Ativan. Hospitalist was informed No seizure activity reported since Neurology consulted EEG no no status epilepticus Fosphenytoin and Keppra ordered Patient is already on valproate Per neurology: Patient will require transfer to a facility w/ cEEG monitoring for higher level of care as EEG here is intermittently available and intermittently read at present; increase depakote to 1000 mg bid (bolus of 500 mg via peg); increase Keppra to 1500 mg bid; initiate vimpat 200 mg iv q12; s/p Ativan 1 mg IV x 1 dose given; pending MRI Brain w/ wo contrast. Recommend q1 hour neurochecks. Resolved No need for transfer to tertiary center (2) Schizoaffective disorder Current Visit: Yes Status: Chronic Plan to address problem: Patient admitted catatonic state and is nonverbal and not following commands Psychiatric consult completed; does not recommend inpatient at this time Haldol as needed, Depakote, Zyprexa Supportive care (3) Hyponatremia Current Visit: Yes Status: Acute Plan to address problem: Admit sodium 142 07/31 134, slight hyponatremia at this time no intervention needed, 08/01 Na 136 however she has remained hyponatremic Hydration with free water flush; 50ml q6 hours while hyponatremic-> informed RN on 08/06 08/07 sodium 136 / sodium 135 Trend BMP 08/10 sodium 141 08/15 sodium 134; informed RN FWF are ordered to be 50 mL every 6 while hyponatremic 08/16 sodium 131, nutrition notes reviewed and FWF seems to be changed 100 mL q4 hours 08/17 sodium 134 I relayed persistent hyponatremia to nutrition and FWF orders have been changed. (4) Metabolic encephalopathy Current Visit: Yes Status: Acute Plan to address problem: Multifactorial , schizoaffective disorder 07/11 CT head Normal nonenhanced CT scan of the brain Patient came from [facility], psych evaluation noted Psych recommends outpt f/u 08/14 neurology consult: Recommends obtaining EEG, LP, CTA head, MRI brain with and without contrast 08/15 CT head shows no acute abnormalities and no changes since 07/11/202008/16: LP under fluoroscopy completed. CSF analysis shows no evidence of enc ephalitis 08/16 MRI brain with/without contrast pending: Shows no acute abnormalities Supportive care No active seizures (5) Hypochloremia Current Visit: Yes Status: Acute Plan to address problem: 07/31 chloride 97, 08/02 chloride 97.9, 08/06 chloride 97.0, 08/07 chloride 97.0, 08/09 chloride 98, 08/16 Cl 91.6, 08/20 Cl 94 Patient on tube feedings with FWF We will continue to monitor Trend BMP (6) Discharge planning issues Current Visit: Yes Status: Acute Plan to address problem: Patient's identity is not confirmed [facility] Department has been contacted to aid in identification however unsuccessful [facility] Department have been contacted Inpatient records requested from [facility] again on 08/02 Risk-management made aware of patient again on 08/02 Patient identification confirmed with [facility] Department Attempted to contact children, CM has an email address and an email was sent over the weekend however there is been no reply 08/07: 2 physician consent for PEG tube obtained and GI consulted for PEG tube placement 08/09: PEG tube placed, resume tube feeds within 4 hours [facility] in the process of assuming guardianship over the patient for placement 08/14 ethics consulted 08/17 Dr. Nails requested a transfer to another facility for continuous EEG as the patient may be in status epilepticus -08/18 seizures stopped last night-- Consider transfer to [facility] canceled. Patient can be managed on antiepileptic meds here (7) DVT prophylaxis Current Visit: Yes Status: Acute Plan to address problem: SCDs to bilateral lower extremities while in bed Heparin subcu Subjective Date of service: 08/19/20 Principal diagnosis: C diff Interval history: Brief history: 60-year-old female patient was [facility] with altered level of consciousness and poor oral intake. Patient has schizoaffective disorder with active hallucinations and confusion, Patient was noted to have rhabdomyolysis and multiple electrolyte imbalances, Rhabdomyolysis is resolved, mild hypokalemia and hypo-phosphatemia - being corrected. Then she developed diarrhea - now positive for C. def, on vancomycin po. Patient remained in catatonic state, does not follow any command, does not want to eat and refuse meds. I strongly believe her electrolytes derangement and encephalopathy related to her catatonia, poor oral intake other than any underlying medical conditions. 07/13; patient's CK levels trending down on 1678, continue IV hydration patient is more alert at times, hallucinating Noncommunicative, severe hypokalemia, replace per protocol 07/14; potassium level significantly improved today to 3.2, replenish per protocol. CK levels trending down 828, continue IV hydration, monitor electrolytes 07/15; patient refused potassium yesterday today potassium levels again 2.7 We will add KCl to IV fluids, and IV K riders, monitor electrolytes. CK level 425. Refusing to eat confused noncommunicative. Possible inpatient psych a dmission when medically stable 07/16; rhabdomyolysis resolved, mild electrolyte imbalances, if corrected medically stable for inpatient psych placement 07/17: replete K and phosphate. repeat CBc BMP tomorrow. White count needs to be < 10 for inpt psych admission 07/18: cont to have mildly elevated white count, c/o loose stool. will check for C. def - start flagyl and cipro 07/19: White count normal today. change medications to Po. medically stable to go for inpt psych unit. 07/20; positive for C. def. patient not eating properly, refusing meds time to time. Psych now recommended outpt f/u. CM working on placement. Patient remains nonverbal, does not follow any commend and not giving any personal info. 07/21; K 2.0 today, cont to replete, follow BMP, patient remains nonverbal and not cooperative. refuses to eat and meds. cont d51/2NS. if condition doesnot improve will consider TF 07/22: Potassium level persistently remains low, magnesium 1.6 today. Will replete magnesium and potassium. Patient refusing meds and not eating at all per RN report. Totally noncooperative during the encounternot respond to any question. Keeps her eye closing and covering her face with her forearm. Will order for tube feeding and Dobbhoff tube. Continue to follow. We will also add Megace to boost appetite. 07/23: started on TF, follow BMP, change iv fluid to 1/2 NS. patient remains nonverbal 07/24; clinically unchanged, replete K, iv fluid and TF. reconsult psych as patient remains in catatonic phase 07/25: psych recommendation noted, continue tube feeding, continue to replete electrolytes as needed, follow BMP. I strongly believe her severe electrolytes derangement and encephalopathy related to her catatonia, poor oral intake other than any underlying medical conditions. There is no family contact in file, no home address available, patient appeared to be unfunded. stock manager working on placement. 07/26: psych recommendation noted, continue tube feeding, continue to replete electrolytes as needed, follow BMP. I strongly believe her severe electrolytes derangement and encephalopathy related to her catatonia, poor oral intake other than any underlying medical conditions. There is no family contact in file, no home address available, patient appeared to be unfunded. stock manager working on placement. 07/27; continue with tube feeding. There is no family contact in file, no home address available, patient appeared to be unfunded. Case management is following. 07/28; patient still on tube feeding, patient is noncommunicative. I believe her condition is related to her catatonia. Psych is following her. Currently her electrolytes are corrected. There is no family contact in file, no home address available, patient appeared to be unfunded. Case management is following. 08/09; patient is still on tube feeding, patient is noncommunicative. Patient will have PEG tube placement today. Case management is following the patient. 08/11; patient is on PEG tube feeding. C. difficile treated and resolved. Patient still in catatonic state. Pending guardianship. 08/12/2020 patient on PEG tube feeding. Guardianship pending. Pending placement. 08/19/2020 seizures subsided. No active seizures Pending placement. Objective - Constitutional Vitals: Vital Signs - 12hr 08/20/20 08/20/20 08/20/20 06:28 08:25 11:22 Temperature 98.9 F 98.7 F Pulse Rate 112 H 107 H Respiratory 22 16 Rate Blood Pressure 99/56 98/57 O2 Sat by Pulse 98 97 97 Oximetry General appearance: Present: no acute distress, well-nourished - EENT Eyes: PERRL, EOM intact ENT: hearing intact, clear oral mucosa Ears: bilateral: normal - Neck Neck: supple, normal ROM - Respiratory Respiratory effort: normal Respiratory: bilateral: CTA - Breasts Breasts: normal - Cardiovascular Rhythm: regular Heart Sounds: Present: S1 & S2. Absent: gallop, rub Extremities: pulses intact, No edema, normal color, Full ROM - Gastrointestinal General gastrointestinal: Present: soft, non-tender, non-distended, normal bowel sounds, other (PEG tube in place) - Genitourinary Female genitourinary: normal - Integumentary Integumentary: clear, warm, dry - Musculoskeletal Musculoskeletal: 1, strength equal bilaterally - Neurologic Neurologic: moves all extremities - Psychiatric Psychiatric: memory intact, appropriate mood/affect, intact judgment & insight - Labs CBC & Chem 7: 08/15/20 15:26 08/20/20 09:31 Labs: Abnormal lab results 08/19/20 08/19/20 08/19/20 Range/Units 16:54 21:29 23:53 ABG pH 7.478 H 7.496 H (7.350-7.450) pH Units POC ABG pCO2 21.8 L (32.0-48.0) mmHg POC ABG pO2 (83-108) mmHg ABG pO2 68.2 L (80.0-90.0) mm Hg ABG HCO3 18.8 L (20.0-26.0) mmol/L ABG Base Excess -2.9 L (-2.0-3.0) mmol/L ABG Sodium 133.1 L (136.0-145.0) mmol/L ABG Potassium 4.7 H (3.40-4.50) mmol/L ABG Glucose 202 H (65-95) mg/dL Oxyhemoglobin 93.8 L (95.0-99.0) % Potassium (3.6-5.0) mmol/L BUN (7-17) mg/dL Glucose (65-100) mg/dL POC Glucose 113 H (70-105) Calcium (8.4-10.2) mg/dL Arterial Blood Glucose 202 H (65-95) mg/dL Arterial Blood Ionized Calcium (4.6-5.3) mg/dL 08/20/20 08/20/20 08/20/20 Range/Units 00:12 01:52 06:19 ABG pH 7.562 H (7.350-7.450) pH Units POC ABG pCO2 21.0 L (32.0-48.0) mmHg POC ABG pO2 123.7 H (83-108) mmHg ABG pO2 (80.0-90.0) mm Hg ABG HCO3 (20.0-26.0) mmol/L ABG Base Excess (-2.0-3.0) mmol/L ABG Sodium 133.9 L (136.0-145.0) mmol/L ABG Potassium (3.40-4.50) mmol/L ABG Glucose 151 H (65-95) mg/dL Oxyhemoglobin (95.0-99.0) % Potassium (3.6-5.0) mmol/L BUN (7-17) mg/dL Glucose (65-100) mg/dL POC Glucose 183 H 124 H (70-105) Calcium (8.4-10.2) mg/dL Arterial Blood Glucose 151 H (65-95) mg/dL Arterial Blood Ionized Calcium 4.4 L (4.6-5.3) mg/dL 08/20/20 08/20/20 Range/Units 09:31 12:33 ABG pH (7.350-7.450) pH Units POC ABG pCO2 (32.0-48.0) mmHg POC ABG pO2 (83-108) mmHg ABG pO2 (80.0-90.0) mm Hg ABG HCO3 (20.0-26.0) mmol/L ABG Base Excess (-2.0-3.0) mmol/L ABG Sodium (136.0-145.0) mmol/L ABG Potassium (3.40-4.50) mmol/L ABG Glucose (65-95) mg/dL Oxyhemoglobin (95.0-99.0) % Potassium 5.2 H (3.6-5.0) mmol/L BUN 34 H (7-17) mg/dL Glucose 149 H (65-100) mg/dL POC Glucose 109 H (70-105) Calcium 8.3 L (8.4-10.2) mg/dL Arterial Blood Glucose (65-95) mg/dL Arterial Blood Ionized Calcium (4.6-5.3) mg/dL HEART Score - HEART Score Risk factors: 1-2 risk factors Troponin: Troponin T < 0.010 ng/mL (0.00-0.029) 07/11/20 21:17 Troponin: < normal limit - Critical Actions Critical Actions: 0-3 pts:0.9-1.7%risk of adverse cardiac event.Candidate for discharge
--- NOTE | 2020-08-20 16:12 | Progress Note ---
Assessment and Plan (1) Status epilepticus Current Visit: Yes Status: Acute Plan to address problem: RN reported seizure activity on on 08/05; Ativan was ordered however was not administered because according to the dayshift RN he was reported that the patient "did not need the medication because she was not having a seizure at the moment". After reviewing nursing notes it is noted that she had reported seizure activity by RN on 08/12 and was given Ativan. Hospitalist was informed No seizure activity reported since Neurology consulted EEG no no status epilepticus Fosphenytoin and Keppra ordered Patient is already on valproate Per neurology: Patient will require transfer to a facility w/ cEEG monitoring for higher level of care as EEG here is intermittently available and intermittently read at present; increase depakote to 1000 mg bid (bolus of 500 mg via peg); increase Keppra to 1500 mg bid; initiate vimpat 200 mg iv q12; s/p Ativan 1 mg IV x 1 dose given; pending MRI Brain w/ wo contrast. Recommend q1 hour neurochecks. Resolved No need for transfer to tertiary center (2) Schizoaffective disorder Current Visit: Yes Status: Chronic Plan to address problem: Patient admitted catatonic state and is nonverbal and not following commands Psychiatric consult completed; does not recommend inpatient at this time Haldol as needed, Depakote, Zyprexa Supportive care (3) Hyponatremia Current Visit: Yes Status: Acute Plan to address problem: Admit sodium 142 07/31 134, slight hyponatremia at this time no intervention needed, 08/01 Na 136 however she has remained hyponatremic Hydration with free water flush; 50ml q6 hours while hyponatremic-> informed RN on 08/06 08/07 sodium 136 / sodium 135 Trend BMP 08/10 sodium 141 08/15 sodium 134; informed RN FWF are ordered to be 50 mL every 6 while hyponatremic 08/16 sodium 131, nutrition notes reviewed and FWF seems to be changed 100 mL q4 hours 08/17 sodium 134 I relayed persistent hyponatremia to nutrition and FWF orders have been changed. (4) Metabolic encephalopathy Current Visit: Yes Status: Acute Plan to address problem: Multifactorial , schizoaffective disorder 07/11 CT head Normal nonenhanced CT scan of the brain Patient came from [facility], psych evaluation noted Psych recommends outpt f/u 08/14 neurology consult: Recommends obtaining EEG, LP, CTA head, MRI brain with and without contrast 08/15 CT head shows no acute abnormalities and no changes since 07/11/202008/16: LP under fluoroscopy completed. CSF analysis shows no evidence of enc ephalitis 08/16 MRI brain with/without contrast pending: Shows no acute abnormalities Supportive care No active seizures (5) hyperkalemia Potassium of 5.2 Kayexalate given in the morning Recheck potassium (6) Discharge planning issues Current Visit: Yes Status: Acute Plan to address problem: Patient's identity is not confirmed [facility] has been contacted to aid in identification however unsuccessful [facility] Department have been contacted Inpatient records requested from [facility] again on 08/02 Risk-management made aware of patient again on 08/02 Patient identification confirmed with [facility] Attempted to contact children, CM has an email address and an email was sent over the weekend however there is been no reply 08/07: 2 physician consent for PEG tube obtained and GI consulted for PEG tube placement 08/09: PEG tube placed, resume tube feeds within 4 hours [facility] in the process of assuming guardianship over the patient for placement 08/14 ethics consulted 08/17 Dr. Nails requested a transfer to another facility for continuous EEG as the patient may be in status epilepticus -08/18 seizures stopped last night-- Consider transfer to [facility] canceled. Patient can be managed on antiepileptic meds here (7) DVT prophylaxis Current Visit: Yes Status: Acute Plan to address problem: SCDs to bilateral lower extremities while in bed Heparin subcu Discharge planning issues Patient will be transferred to personal skilled nursing under hospital guardianship No need for tertiary care transfer because the seizures are resolved. Subjective Date of service: 08/20/20 Interval history: Brief history: 60-year-old female patient was sent from [facility] with altered level of consciousness and poor oral intake. Patient has schizoaffective disorder with active hallucinations and confusion, Patient was noted to have rhabdomyolysis and multiple electrolyte imbalances, Rhabdomyolysis is resolved, mild hypokalemia and hypo-phosphatemia - being corrected. Then she developed diarrhea - now positive for C. def, on vancomycin po. Patient remained in catatonic state, does not follow any command, does not want to eat and refuse meds. I strongly believe her electrolytes derangement and encephalopathy related to her catatonia, poor oral intake other than any underlying medical conditions. 07/13; patient's CK levels trending down on 1678, continue IV hydration patient is more alert at times, hallucinating Noncommunicative, severe hypokalemia, replace per protocol 07/14; potassium level significantly improved today to 3.2, replenish per protocol. CK levels trending down 828, continue IV hydration, monitor electrolytes 07/15; patient refused potassium yesterday today potassium levels again 2.7 We will add KCl to IV fluids, and IV K riders, monitor electrolytes. CK level 425. Refusing to eat confused noncommunicative. Possible inpatient psych admission when medically stable 07/16; rhabdomyolysis resolved, mild electrolyte imbalances, if corrected medically stable for inpatient psych placement 07/17: replete K and phosphate. repeat CBc BMP tomorrow. White count needs to be < 10 for inpt psych admission 07/18: cont to have mildly elevated white count, c/o loose stool. will check for C. def - start flagyl and cipro 07/19: White count normal today. change medications to Po. medically stable to go for inpt psych unit. 07/20; positive for C. def. patient not eating properly, refusing meds time to time. Psych now recommended outpt f/u. CM working on placement. Patient remains nonverbal, does not follow any commend and not giving any personal info. 07/21; K 2.0 today, cont to replete, follow BMP, patient remains nonverbal and not cooperative. refuses to eat and meds. cont d51/2NS. if condition doesnot improve will consider TF 07/22: Potassium level persistently remains low, magnesium 1.6 today. Will replete magnesium and potassium. Patient refusing meds and not eating at all per RN report. Totally noncooperative during the encounternot respond to any question. Keeps her eye closing and covering her face with her forearm. Will order for tube feeding and Dobbhoff tube. Continue to follow. We will also add Megace to boost appetite. 07/23: started on TF, follow BMP, change iv fluid to 1/2 NS. patient remains nonverbal 07/24; clinically unchanged, replete K, iv fluid and TF. reconsult psych as patient remains in catatonic phase 07/25: psych recommendation noted, continue tube feeding, continue to replete electrolytes as needed, follow BMP. I strongly believe her severe electrolytes derangement and encephalopathy related to her catatonia, poor oral intake other than any underlying medical conditions. There is no family contact in file, no home address available, patient appeared to be unfunded. manager recruitment working on placement. 07/26: psych recommendation noted, continue tube feeding, continue to replete electrolytes as needed, follow BMP. I strongly believe her severe electrolytes derangement and encephalopathy related to her catatonia, poor oral intake other than any underlying medical conditions. There is no family contact in file, no home address available, patient appeared to be unfunded. manager recruitment working on placement. 07/27; continue with tube feeding. There is no family contact in file, no home address available, patient appeared to be unfunded. Case management is following. 07/28; patient still on tube feeding, patient is noncommunicative. I believe her condition is related to her catatonia. Psych is following her. Currently her electrolytes are corrected. There is no family contact in file, no home address available, patient appeared to be unfunded. Case management is following. 08/09; patient is still on tube feeding, patient is noncommunicative. Patient will have PEG tube placement today. Case management is following the patient. 08/11; patient is on PEG tube feeding. C. difficile treated and resolved. Patient still in catatonic state. Pending guardianship. 08/12/2020 patient on PEG tube feeding. Guardianship pending. Pending placement. 08/19/2020 seizures subsided. No active seizures Pending placement. Objective - Constitutional Vitals: Vital Signs - 12hr 08/20/20 08/20/20 08/20/20 06:28 08:25 11:22 Temperature 98.9 F 98.7 F Pulse Rate 112 H 107 H Respiratory 22 16 Rate Blood Pressure 99/56 98/57 O2 Sat by Pulse 98 97 97 Oximetry General appearance: Present: no acute distress, well-nourished - EENT Eyes: PERRL, EOM intact ENT: hearing intact, clear oral mucosa Ears: bilateral: normal - Neck Neck: supple, normal ROM - Respiratory Respiratory effort: normal Respiratory: bilateral: CTA - Breasts Breasts: normal - Cardiovascular Rhythm: regular Heart Sounds: Present: S1 & S2. Absent: gallop, rub Extremities: pulses intact, No edema, normal color, Full ROM - Gastrointestinal General gastrointestinal: Present: soft, non-tender, non-distended, normal bowel sounds, other (PEG in place) - Genitourinary Female genitourinary: normal - Integumentary Integumentary: clear, warm, dry - Musculoskeletal Musculoskeletal: 1, strength equal bilaterally - Neurologic Neurologic: moves all extremities - Psychiatric Psychiatric: memory intact, appropriate mood/affect, intact judgment & insight - Labs CBC & Chem 7: 08/15/20 15:26 08/20/20 09:31 Labs: Abnormal lab results 08/19/20 08/19/20 08/19/20 Range/Units 16:54 21:29 23:53 ABG pH 7.478 H 7.496 H (7.350-7.450) pH Units POC ABG pCO2 21.8 L (32.0-48.0) mmHg POC ABG pO2 (83-108) mmHg ABG pO2 68.2 L (80.0-90.0) mm Hg ABG HCO3 18.8 L (20.0-26.0) mmol/L ABG Base Excess -2.9 L (-2.0-3.0) mmol/L ABG Sodium 133.1 L (136.0-145.0) mmol/L ABG Potassium 4.7 H (3.40-4.50) mmol/L ABG Glucose 202 H (65-95) mg/dL Oxyhemoglobin 93.8 L (95.0-99.0) % Potassium (3.6-5.0) mmol/L BUN (7-17) mg/dL Glucose (65-100) mg/dL POC Glucose 113 H (70-105) Calcium (8.4-10.2) mg/dL Arterial Blood Glucose 202 H (65-95) mg/dL Arterial Blood Ionized Calcium (4.6-5.3) mg/dL 08/20/20 08/20/20 08/20/20 Range/Units 00:12 01:52 06:19 ABG pH 7.562 H (7.350-7.450) pH Units POC ABG pCO2 21.0 L (32.0-48.0) mmHg POC ABG pO2 123.7 H (83-108) mmHg ABG pO2 (80.0-90.0) mm Hg ABG HCO3 (20.0-26.0) mmol/L ABG Base Excess (-2.0-3.0) mmol/L ABG Sodium 133.9 L (136.0-145.0) mmol/L ABG Potassium (3.40-4.50) mmol/L ABG Glucose 151 H (65-95) mg/dL Oxyhemoglobin (95.0-99.0) % Potassium (3.6-5.0) mmol/L BUN (7-17) mg/dL Glucose (65-100) mg/dL POC Glucose 183 H 124 H (70-105) Calcium (8.4-10.2) mg/dL Arterial Blood Glucose 151 H (65-95) mg/dL Arterial Blood Ionized Calcium 4.4 L (4.6-5.3) mg/dL 08/20/20 08/20/20 Range/Units 09:31 12:33 ABG pH (7.350-7.450) pH Units POC ABG pCO2 (32.0-48.0) mmHg POC ABG pO2 (83-108) mmHg ABG pO2 (80.0-90.0) mm Hg ABG HCO3 (20.0-26.0) mmol/L ABG Base Excess (-2.0-3.0) mmol/L ABG Sodium (136.0-145.0) mmol/L ABG Potassium (3.40-4.50) mmol/L ABG Glucose (65-95) mg/dL Oxyhemoglobin (95.0-99.0) % Potassium 5.2 H (3.6-5.0) mmol/L BUN 34 H (7-17) mg/dL Glucose 149 H (65-100) mg/dL POC Glucose 109 H (70-105) Calcium 8.3 L (8.4-10.2) mg/dL Arterial Blood Glucose (65-95) mg/dL Arterial Blood Ionized Calcium (4.6-5.3) mg/dL HEART Score - HEART Score Risk factors: 1-2 risk factors Troponin: Troponin T < 0.010 ng/mL (0.00-0.029) 07/11/20 21:17 Troponin: < normal limit - Critical Actions Critical Actions: 0-3 pts:0.9-1.7%risk of adverse cardiac event.Candidate for discharge
[2020-08-21] MEDS: VANCOMYCIN/NS 1 GM/250 ML 1 GM/250 ML BAG IV SCH ×2 (00:11→18:51)
[2020-08-21] MEDS: VALPROIC ACID 250 MG/5 ML ORAL LIQD FEEDTUBE SCH ×3 (00:11→22:39)
[2020-08-21] MEDS: CEFEPIME/NS 2 GM/100 ML 2 GM/100 ML BAG IV SCH ×4 (00:11→22:38)
[2020-08-21] MEDS: levETIRAcetam 1,500 MG in DEXTROSE 5% IN WATER 100 ML IV SCH ×2 (00:11→11:16)
[2020-08-21] MEDS: INSULIN REGULAR, HUMAN 100 UNIT/ML 3ML VIAL SUB-Q SCH ×3 (02:21→18:52)
[2020-08-21] MEDS: HEPARIN 5,000 UNIT/1 ML VIAL SUB-Q SCH ×3 (03:42→22:42)
[2020-08-21] MEDS: LACOSAMIDE 200 MG in SODIUM CHLORIDE 0.9% 100 ML IV SCH ×2 (04:17→16:07)
[2020-08-21 06:43] LABS: Blood Urea Nitrogen 23 mg/dL (7-17); Calcium 8.2 mg/dL (8.4-10.2); Hemolysis Index 19
[2020-08-21 06:48] LABS: BUN/Creatinine Ratio 115
[2020-08-21] MEDS: MEGESTROL 400 MG/10 ML ORAL LIQD PO SCH (11:14)
--- NOTE | 2020-08-21 16:46 | Progress Note ---
<BELKISFAB BariJeremie - Last Filed: 08/21/20 18:14> Assessment and Plan - Patient Problems (1) Status epilepticus Current Visit: Yes Status: Acute Plan to address problem: RN reported seizure activity on on 08/05; Ativan was ordered however was not administered because according to the dayshift RN he was reported that the patient "did not need the medication because she was not having a seizure at the moment". After reviewing nursing notes it is noted that she had reported seizure activity by RN on 08/12 and was given Ativan. Hospitalist was informed No seizure activity reported since Neurology consulted EEG no no status epilepticus Pt is on depakote 1000 mg bid; Keppra 1500 mg bid; vimpat 200 mg iv q12; and now initiated on Fosphentoin (load and maintenance) despite drug-drug interaction on 08/21 per neurology Per neurology: Patient will require transfer to a facility w/ cEEG monitoring for higher level of care as EEG here is intermittently available and intermittently read at present; increase depakote to 1000 mg bid (bolus of 500 mg via peg); increase Keppra to 1500 mg bid; initiate vimpat 200 mg iv q12; s/p Ativan 1 mg IV x 1 dose given; pending MRI Brain w/ wo contrast. Recommend q1 hour neurochecks. 08/19 it was noted that patient's seizure activity subsided therefore was not transferred to tertiary care 08/21 noted to have a focal seizure when neurology was examining the patient, given Ativan x1 and started on a third antiepileptic. (2) Schizoaffective disorder Current Visit: Yes Status: Chronic Plan to address problem: Patient admitted catatonic state and is nonverbal and not following commands Psychiatric consult completed; does not recommend inpatient at this time Haldol as needed, Depakote, Zyprexa Supportive care (3) Hyponatremia Current Visit: Yes Status: Resolved Plan to address problem: Admit sodium 142 07/31 134, slight hyponatremia at this time no intervention needed, 08/01 Na 136 however she has remained hyponatremic Hydration with free water flush; 50ml q6 hours while hyponatremic-> informed RN on 08/06 10 sodium 136 10/8 sodium 135 Trend BMP 08/10 sodium 141 08/15 sodium 134; informed RN FWF are ordered to be 50 mL every 6 while hyponatremic 08/16 sodium 131, nutrition notes reviewed and FWF seems to be changed 100 mL q 4 hours 08/17 sodium 134 08/20 hyponatremia resolved (4) Metabolic encephalopathy Current Visit: Yes Status: Acute Plan to address problem: Multifactorial , schizoaffective disorder 07/11 CT head Normal nonenhanced CT scan of the brain Patient came from [place], psych evaluation noted Psych recommends outpt f/u 08/14 neurology consult: Recommends obtaining EEG, LP, CTA head, MRI brain with and without contrast 08/15 CT head shows no acute abnormalities and no changes since 07/11/202008/16: LP under fluoroscopy completed. CSF analysis shows no evidence of encephalitis 08/16 MRI brain with/without contrast pending: Shows no acute abnormalities Supportive care (5) Hypochloremia Current Visit: Yes Status: Resolved Plan to address problem: 07/31 chloride 97, 08/02 chloride 97.9, 08/06 chloride 97.0, 08/07 chloride 97.0, 08/09 chloride 98, 08/16 Cl 91.6, 08/20 Cl 94, 08/21 resolved Patient on tube feedings with FWF We will continue to monitor Trend BMP (6) Discharge planning issues Current Visit: Yes Status: Acute Plan to address problem: Patient's identity is not confirmed [facility] has been contacted to aid in identification however unsuccessful [facility] Department have been contacted Inpatient records requested from [facility] again on 08/02 Risk-management made aware of patient again on 08/02 Patient identification confirmed with [facility] Attempted to contact children, CM has an email address and an email was sent over the weekend however there is been no reply 08/07: 2 physician consent for PEG tube obtained and GI consulted for PEG tube placement 08/09: PEG tube placed, resume tube feeds within 4 hours [facility] in the process of assuming guardianship over the patient for placement 08/14 ethics consulted 08/17 Dr. Nails requested a transfer to another facility for continuous EEG as the patient may be in status epilepticus however the patient was not transferred 08/21 transfer requested again to tertiary center for continuous EEG monitoring which was relayed (7) DVT prophylaxis Current Visit: Yes Status: Acute Plan to address problem: SCDs to bilateral lower extremities while in bed Heparin subcu History Interval history: 60-year-old female patient with schizoaffective disorder with active hallucinations and confusion presented from [place] for altered mental status and poor intake on 07/13. She was found to have rhabdomyolysis and electrolyte imbal ances. She then developed C. difficile diarrhea and she has completed her regimen of p.o. vancomycin from 07/20-08/03. RN stated patient had to liquid bowel movements today however patient is on vancomycin. Per policy if patient has the decreased BMs she was not a C. difficile sample. At the time of my exam this afternoon the patient was in her usual state with no focal seizure activity noted. However this evening when neurology examined her she was noted to have another seizure and was given Ativan IV. Antiepileptic medications adjusted. Dr. Nails spoke to Dr. Taylor about need to transfer for continuous EEG. He also recommended every hour neurochecks and intubation. Stat ABG ordered. 07/13; patient's CK levels trending down on 1678, continue IV hydration patient is more alert at times, hallucinating, Noncommunicative, severe hypokalemia, replace per protocol 07/14; potassium level significantly improved today to 3.2, replenish per protocol. CK levels trending down 828, continue IV hydration, monitor electrolytes 07/15; patient refused potassium yesterday today potassium levels again 2.7 We will add KCl to IV fluids, and IV K riders, monitor electrolytes. CK level 425. Refusing to eat confused noncommunicative. Possible inpatient psych admission when medically stable 07/16; rhabdomyolysis resolved, mild electrolyte imbalances, if corrected medically stable for inpatient psych placement 07/17: replete K and phosphate. repeat CBc BMP tomorrow. White count needs to be < 10 for inpt psych admission 07/18: cont to have mildly elevated white count, c/o loose stool. will check for C. def - start flagyl and cipro 07/19: White count normal today. change medications to Po. medically stable to go for inpt psych unit. 07/20; positive for C. def. patient not eating properly, refusing meds time to time. Psych now recommended outpt f/u. CM working on placement. Patient remains nonverbal, does not follow any commend and not giving any personal info. 07/21; K 2.0 today, cont to replete, follow BMP, patient remains nonverbal and not cooperative. refuses to eat and meds. cont d51/2NS. if condition doesnot improve will consider TF 07/22: Potassium level persistently remains low, magnesium 1.6 today. Will replete magnesium and potassium. Patient refusing meds and not eating at all per RN report. Totally noncooperative during the encounternot respond to any question. Keeps her eye closing and covering her face with her forearm. Will order for tube feeding and Dobbhoff tube. Continue to follow. We will also add Megace to boost appetite. 07/23: started on TF, follow BMP, change iv fluid to 1/2 NS. patient remains nonverbal 07/24; clinically unchanged, replete K, iv fluid and TF. reconsult psych as patient remains in catatonic phase 07/25: psych recommendation noted, continue tube feeding, continue to replete electrolytes as needed, follow BMP. I strongly believe her severe electrolytes derangement and encephalopathy related to her catatonia, poor oral intake other than any underlying medical conditions. There is no family contact in file, no home address available, patient appeared to be unfunded. tax manager cpa working on placement. 07/26: psych recommendation noted, continue tube feeding, continue to replete electrolytes as needed, follow BMP. I strongly believe her severe electrolytes derangement and encephalopathy related to her catatonia, poor oral intake other than any underlying medical conditions. There is no family contact in file, no home address available, patient appeared to be unfunded. tax manager cpa working on placement. 07/27; continue with tube feeding. There is no family contact in file, no home address available, patient appeared to be unfunded. Case management is following. 07/28; patient still on tube feeding, patient is noncommunicative. I believe her condition is related to her catatonia. Psych is following her. Currently her electrolytes are corrected. There is no family contact in file, no home address available, patient appeared to be unfunded. Case management is following. 07/29 patient is nonverbal, eyes open does not follow simple commands,, still having low-grade fever T-max 100 degrees,, lab results reviewed discussed with RN- still has loose stools, geriatric case manager notes reviewed, unable to contact family 07/30 no acute events overnight, diarrhea improved, stop IV fluids, disposition to be decided 07/31: operations officer trust department presented to the bedside to attempt to fingerprint the patient to identify her. However his machine was not working 08/01:' Per geriatric case manager note [facility] Department has been contacted to help in identifying the patient. On officer is to report to bedside and was instructed to call the geriatric case manager upon arrival. 08/02/2020 still has diarrhea 08/03/2020 diarrhea improving. Today is the last day of vancomycin 08/04/2020 patient has no diarrhea 08/05: press breaker RN reported patient had a seizure overnight, Ativan was ordered however was not administered because according to the dayshift RN he was reported that the patient "did not need the medication because she was not having a seizure at the moment". Patient remained hyponatremic and hypochloremic and after conversing with the nurse patient was not getting her prescribed dose FWF for hyponatremia which was corrected 08/06: Electrolyte imbalance discontinue, patient still catatonic 08/07: Electrolyte imbalances continue, to physician consent for PEG tube obtained and GI consulted 08/08: PEG scheduled for 08/09 08/09: s/p PEG placement with GI, hyperkalemic (potassium 5.2) s/p DC Kayexalate. 08/11; patient is on PEG tube feeding. C. difficile treated and resolved. Patient still in catatonic state. Pending guardianship. 08/12/2020 patient on PEG tube feeding. Guardianship pending. Pending placemen t. 08/13: no aucte events reported overnight, gaurdenship pending. 08/14/20: quality and futility of care is questionable, patient not following any commands, pupillary reflex noted, neurology and ethics consult placed 08/15: Neurology recommended LP, EEG, CT head and MRI brain with and without contrast which are all pending. 08/16: Physician consult obtained for LP which was completed today. Bilateral lower extremity x-rays noted no metal and a physician consent was obtained for contrast therefore MRI brain pending. EEG still pending. Patient again has hypochloremia and hyponatrema 08/17: status epilepticus noted on EEG, Neurology recommends transfer for continues EEG. 08/19: seizures subsided. No active seizures. Pending placement. 08/20: CXR shows possible PNA, initiated on cefepime and vancomycin Hospitalist Physical - Physical exam Narrative exam: General appearance: Present: no acute distress, other (Nonverbal, awake) - EENT Eyes: Present: PERRL - Neck Neck: Present: supple, normal ROM - Respiratory Respiratory effort: normal Respiratory: bilateral: CTA - Cardiovascular Rhythm: regular Heart Sounds: Present: S1 & S2. Absent: systolic murmur, diastolic murmur - Extremities Extremities: no ischemia, pulses intact, pulses symmetrical, No edema, normal temperature, normal color, Full ROM Peripheral Pulses: within normal limits - Abdominal General gastrointestinal: soft, non-tender, non-distended, normal bowel sounds - Integumentary Integumentary: Present: clear, warm, dry - Psychiatric Psychiatric: other (Patient is nonverbal, does not follow any commands however does withdraw to pain to all 4 extremities) - Neurologic Neurologic: moves all extremities (spontaneously) - Constitutional Vitals: Temp Pulse Resp BP Pulse Ox 97.7 F 96 H 20 99/54 97 08/21/20 12:00 08/21/20 12:00 08/21/20 12:00 08/21/20 12:00 08/21/20 12:00 General appearance: Present: no acute distress, well-nourished HEART Score - HEART Score Risk factors: 1-2 risk factors Troponin: Troponin T < 0.010 ng/mL (0.00-0.029) 07/11/20 21:17 Troponin: < normal limit - Critical Actions Critical Actions: 0-3 pts:0.9-1.7%risk of adverse cardiac event.Candidate for discharge Results - Labs CBC & Chem 7: 08/15/20 15:26 08/21/20 05:41 Labs: Laboratory Last Values WBC 10.9 K/mm3 (4.5-11.0) 08/09/20 07:05 RBC 4.06 M/mm3 (3.65-5.03) 08/09/20 07:05 Hgb 14.0 gm/dl (10.1-14.3) 08/09/20 07:05 Hct 38.9 % (30.3-42.9) D 08/09/20 07:05 MCV 96 fl (79-97) 08/09/20 07:05 MCH 34 pg (28-32) H 08/09/20 07:05 MCHC 36 % (30-34) H 08/09/20 07:05 RDW 14.6 % (13.2-15.2) 08/09/20 07:05 Plt Count 400 K/mm3 (140-440) 08/15/20 15:26 Lymph % (Auto) 21.6 % (13.4-35.0) 07/26/20 07:30 [place] % (Auto) 6.2 % (0.0-7.3) 07/26/20 07:30 Eos % (Auto) 0.5 % (0.0-4.3) 07/26/20 07:30 Baso % (Auto) 0.3 % (0.0-1.8) 07/26/20 07:30 Lymph # (Auto) 2.0 K/mm3 (1.2-5.4) 07/26/20 07:30 [place] # (Auto) 0.6 K/mm3 (0.0-0.8) 07/26/20 07:30 Eos # (Auto) 0.1 K/mm3 (0.0-0.4) 07/26/20 07:30 Baso # (Auto) 0.0 K/mm3 (0.0-0.1) 07/26/20 07:30 Seg Neutrophils % 71.4 % (40.0-70.0) H 07/26/20 07:30 Seg Neutrophils # 6.8 K/mm3 (1.8-7.7) 07/26/20 07:30 PT 12.5 Sec. (12.2-14.9) 08/15/20 15:26 INR 0.92 (0.87-1.13) 08/15/20 15:26 APTT 20.4 Sec. (24.2-36.6) L 08/15/20 15:26 ABG pH 7.562 (7.320-7.450) H 08/20/20 01:52 POC ABG pCO2 21.0 mmHg (32.0-48.0) L 08/20/20 01:52 ABG pCO2 25.9 mm Hg 08/19/20 21:29 POC ABG pO2 123.7 mmHg (83-108) H 08/20/20 01:52 ABG pO2 68.2 mm Hg (80.0-90.0) L 08/19/20 21:29 POC ABG HCO3 18.5 08/20/20 01:52 ABG HCO3 18.8 mmol/L (20.0-26.0) L 08/19/20 21:29 ABG O2 Saturation 95.4 % (95.0-99.0) 08/19/20 21:29 ABG O2 Content 20.4 (0.0-44) 08/19/20 21:29 POC ABG Base Excess -1.4 08/20/20 01:52 ABG Base Excess -2.9 mmol/L (-2.0-3.0) L 08/19/20 21:29 ABG Hemoglobin 14.5 (12.0-17.5) 08/20/20 01:52 ABG Carboxyhemoglobin 1.2 % (0.0-5.0) 08/19/20 21: ABG Methemoglobin 0.5 % (0.0-1.5) 08/19/20 21:29 ABG Sodium 133.9 mmol/L (136.0-145.0) L 08/20/20 01:52 ABG Potassium 4.3 mmol/L (3.40-4.50) 08/20/20 01:52 ABG Chloride 98.0 mmol/L (98-107) 08/20/20 01:52 ABG Glucose 151 mg/dL (65-95) H 08/20/20 01:52 Oxyhemoglobin 93.8 % (95.0-99.0) L 08/19/20 21:29 FiO2 50.0 08/20/20 01:52 Sodium 140 mmol/L (137-145) 08/21/20 05:41 Potassium 4.1 mmol/L (3.6-5.0) D 08/21/20 05:41 Chloride 100.3 mmol/L (98-107) 08/21/20 05:41 Carbon Dioxide 26 mmol/L (22-30) 08/21/20 05:41 Anion Gap 18 mmol/L 08/21/20 05:41 BUN 23 mg/dL (7-17) H 08/21/20 05:41 Creatinine 0.2 mg/dL (0.6-1.2) L D 08/21/20 05:41 Estimated GFR > 60 ml/min 08/21/20 05:41 BUN/Creatinine Ratio 115 % 08/21/20 05:41 Glucose 102 mg/dL (65-100) H 08/21/20 05:41 POC Glucose 138 mg/dL (70-105) H 08/21/20 11:41 Lactic Acid 1.50 mmol/L (0.7-2.0) 07/12/20 00:04 Phosphorus 3.10 mg/dL (2.5-4.5) 07/24/20 06:00 Magnesium 2.10 mg/dL (1.7-2.3) 07/24/20 06:00 Calcium 8.2 mg/dL (8.4-10.2) L 08/21/20 05:41 Direct Bilirubin < 0.2 mg/dL (0-0.2) 07/13/20 09:33 Ammonia 28.0 umol/L (25-60) 07/11/20 21:17 Total Bilirubin 0.40 mg/dL (0.1-1.2) 08/06/20 08:59 Total Creatine Kinase 102 units/L (30-135) 07/17/20 05:21 CK-MB (CK-2) 9.2 ng/mL (0.0-4.0) H 07/12/20 15:13 AST 63 units/L (5-40) H 08/06/20 08:59 ALT 41 units/L (7-56) 08/06/20 08:59 CK-MB (CK-2) Rel Index 0.4 (0-4) 07/12/20 15:13 Alkaline Phosphatase 59 units/L (35-129) 08/06/20 08:59 Troponin T < 0.010 ng/mL (0.00-0.029) 07/11/20 21:17 Total Protein 6.6 g/dL (6.3-8.2) 08/06/20 08:59 Albumin 3.8 g/dL (3.9-5) L 08/06/20 08:59 Albumin/Globulin Ratio 1.4 % 08/06/20 08:59 Arterial Blood Glucose 151 mg/dL (65-95) H 08/20/20 01:52 Arterial Blood Ionized Calcium 4.4 mg/dL (4.6-5.3) L 08/20/20 01:52 Urine Color Yellow (Yellow) 07/11/20 Unknown Urine Turbidity Clear (Clear) 07/11/20 Unknown Urine pH 6.0 (5.0-7.0) 07/11/20 Unknown Ur Specific [place] 1.023 (1.003-1.030) 07/11/20 Unknown Urine Protein 30 mg/dl mg/dL (Negative) 07/11/20 Unknown Urine Glucose (UA) Neg mg/dL (Negative) 07/11/20 Unknown Urine Ketones Tr mg/dL (Negative) 07/11/20 Unknown Urine Blood Neg (Negative) 07/11/20 Unknown Urine Nitrite Neg (Negative) 07/11/20 Unknown Urine Bilirubin Neg (Negative) 07/11/20 Unknown Urine Urobilinogen 2.0 mg/dL (<2.0) 07/11/20 Unknown Ur Leukocyte Esterase Neg (Negative) 07/11/20 Unknown Urine WBC (Auto) 2.0 /HPF (0.0-6.0) 07/11/20 Unknown Urine RBC (Auto) 3.0 /HPF (0.0-6.0) 07/11/20 Unknown U Epithel Cells (Auto) 3.0 /HPF (0-13.0) 07/11/20 Unknown Urine Mucus 3+ /HPF 07/11/20 Unknown CSF Appearance Clear 08/16/20 14:18 CSF Color Colorless 08/16/20 14:18 CSF WBC 6 /mm3 (1-10) 08/16/20 14:18 CSF RBC 4 /mm3 (0-0) 08/16/20 14:18 CSF Seg Neutrophils 0 % (0-6) 08/16/20 14:18 CSF Lymphocytes % 90.0 % (40-80) 08/16/20 14:18 CSF Reactive Lymphs 0 % 08/16/20 14:18 CSF Monocytes % 10.0 % (15-45) 08/16/20 14:18 CSF Eosinophils % 0 % 08/16/20 14:18 CSF Basophils 0 % 08/16/20 14:18 CSF Pathologist Review C 08/16/20 14:18 CSF Glucose 60 mg/dL 08/16/20 14:18 CSF Total Protein 94 mg/dL 08/16/20 14:18 CSF VDRL Nonreactive (Nonreactive) 08/16/20 14:18 Salicylates < 0.3 mg/dL (2.8-20.0) L 07/11/20 21:17 Urine Opiates Screen Presumptive negative 07/11/20 Unknown Urine Methadone Screen Presumptive negative 07/11/20 Unknown Acetaminophen 5.0 ug/mL (10.0-30.0) L 07/11/20 21:17 Ur Barbiturates Screen Presumptive negative 07/11/20 Unknown Ur Phencyclidine Scrn Presumptive negative 07/11/20 Unknown Phenytoin 8.9 ug/mL (10.0-20.0) L 08/16/20 11:56 Ur Amphetamines Screen Presumptive negative 07/11/20 Unknown Valproic Acid 98.6 ug/mL (50-100) 08/20/20 15:06 U Benzodiazepines Scrn Presumptive negative 07/11/20 Unknown Urine Cocaine Screen Presumptive negative 07/11/20 Unknown U Marijuana (THC) Screen Presumptive negative 07/11/20 Unknown Drugs of Abuse Note Disclamer 07/11/20 Unknown C. difficile Tox (PCR) Positive (Negative) 07/19/20 18:51 Enterovirus (PCR) Cmmt 08/16/20 14:18 Ledesma/IV: Voiding Method Diaper IV Catheter Type [Right INT / Saline Lock Antecubital] IV Catheter Type [Left Forearm INT / Saline Lock ] IV Catheter Type [Right Hand] INT / Saline Lock IV Catheter Type [Right INT / Saline Lock Forearm] IV Catheter Type [Left Hand] INT / Saline Lock Active Medications - Current Medications Current Medications: Generic Name Dose Route Start Last Admin Trade Name Freq PRN Reason Stop Dose Admin Acetaminophen 650 mg 07/12/20 01:05 07/27/20 01:57 Tylenol DC 650 mg Q4H PRN Administration Fever >101 Lipase/Protease/Amylase 1 each 07/22/20 07:44 08/14/20 10:[address] 10,500 Unit FEEDTUBE 1 each PRN PRN Administration For Clogged Feeding Tube Haloperidol Lactate 5 mg 07/18/20 13:15 07/21/20 22:06 Haldol IM 5 mg Q6H PRN Administration Agitation Heparin Sodium (Porcine) 5,000 unit 07/12/20 10:00 08/21/20 11:52 Heparin SUB-Q 5,000 unit Q8H KEITH Administration Levetiracetam 1,500 mg/ 115 mls @ 400 mls/hr 08/17/20 15:00 08/21/20 11:16 Dextrose IV 400 mls/hr Q12HR KEITH Administration Lacosamide 200 mg/ Sodium 120 mls @ 100 mls/hr 08/17/20 16:00 08/21/20 16:07 Chloride IV 100 mls/hr Q12H KEITH Administration Cefepime HCl 2 gm in 100 mls @ 200 mls/hr 08/20/20 06:00 08/21/20 14:01 Cefepime/Ns 2 Gm/100 Ml IV 200 mls/hr Q8HR KEITH Administration Vancomycin HCl 1 gm in 250 mls @ 166.667 mls/hr 08/20/20 22:00 08/21/20 00:11 Vancomycin/Ns 1 Gm/250 Ml IV 166.667 mls/hr Q18H KEITH Administration Insulin Human Regular 0 unit 07/23/20 09:00 08/21/20 13:17 Humulin R SUB-Q Not Given Q6HR [facility] Protocol Lorazepam 2 mg 08/06/20 05:05 08/12/20 17:37 Ativan IV 2 mg Q4H PRN Administration Agitation Megestrol Acetate 400 mg 07/22/20 10:00 08/21/20 11:14 Megestrol PO 400 mg QDAY KEITH Administration Olanzapine 2.5 mg 07/25/20 22:00 08/21/20 00:12 Zyprexa PO 2.5 mg QHS KEITH Administration Ondansetron HCl 4 mg 07/12/20 01:06 Zofran IV Q8H PRN Nausea And Vomiting Simple Syrup 15 ml 07/22/20 07:44 Simple Syrup FEEDTUBE PRN PRN Hypoglycemia Simple Syrup 30 ml 07/22/20 07:44 Simple Syrup FEEDTUBE PRN PRN Hypoglycemia Sodium Bicarbonate 325 mg 07/22/20 07:44 Sodium Bicarbonate FEEDTUBE PRN PRN For Clogged Feeding Tube Valproic Acid 1,000 mg 08/18/20 22:00 08/21/20 11:15 Depakene Liq FEEDTUBE 1,000 mg Q12HR KEITH Administration Nutrition/Malnutrition Assess - Dietary Evaluation Nutrition/Malnutrition Findings: Nutrition Notes Start: 07/12/20 11:40 Freq: Status: Active Protocol: Document 08/15/20 13:06 SHIRLEY (Rec: 08/15/20 13:17 SHIRLEY [id number]) Co-Sign 08/15/20 13:06 LM Nutrition Notes Initial or Follow up Reassessment Other Pertinent Diagnosis C. diff (+), AMS, Rhabdomyolysis, dehydration, Hx of stroke Current Diet Osmolite at 35ml/hr Labs/Tests Reviewed Pertinent Medications Reviewed Height 5 ft Weight 52 kg [place] Body Weight (kg) 45.45 BMI 22.4 Subjective/Other Information F/u stable TF. Per nursing notes, pt's TF is stable at 35ml/hr and still well tolerated. Percent of energy/protein needs met: 100%/90% Burn Absent Trauma Absent GI Symptoms None Current % PO Negligible Minimum of two criteria No Energy Intake (severe) < or equal to 50% Estimated Energy Requirement > or equal to 5 days #1 Nutrition Diagnosis Inadequate oral intake Diagnosis Progress(for reassessment Continues documentation) Is patient on ventilator? No Is Patient Ambulatory and/or Out of Bed No REE-([facility]-confined to bed) 1213.032 Calculation Used for Recommendations [facility] Additional Notes Protein Needs 59-70g (1-1.2g/ kg) Fluid Needs: 1ml/kcal Nutrition Intervention Change Diet Order: Continue Nutrition Support: Osmolite 1.5 at 35ml/hr. Flush 60ml q4hr for hyponatremia Flush 100ml q4hr once hyponatremia resolved. Kcal 1,260 Protein (gm) 53 Fluid (mL) 640 Goal #1 Patient meets at least 75% of energy and protein needs via TF Anticipated Discharge Needs: Recommend Jevity 1.2 bolus 5 cans/day: Breakfast 2 cans ( 474ml), Lunch 2 cans (474ml), Dinner 1 can (237ml) with flush 100ml before and after bolus. Follow-Up By: 08/22/20 Additional Comments F/u stable TF and discharge plan <GAIL TAYLOR - Last Filed: 08/21/20 19:22> Assessment and Plan Assessment and plan: Discussed with neurologist. Patient needs to be transferred to a tertiary center for continuous EEG monitoring Transfer to [facility]. In the meantime, patient will need intubation and sedation for status as per neurology. Discussed with anesthesia. Critical care consult placed. Vent orders placed. Patient will be going to the ICU. Transfer order placed. Hospitalist Physical - Constitutional Vitals: Temp Pulse Resp BP Pulse Ox 99.0 F 70 20 99/54 97 08/21/20 16:00 08/21/20 16:00 08/21/20 12:00 08/21/20 12:00 08/21/20 12:00 HEART Score - HEART Score Troponin: Troponin T < 0.010 ng/mL (0.00-0.029) 07/11/20 21:17 Results - Labs CBC & Chem 7: 08/15/20 15:26 08/21/20 05:41 Labs: Laboratory Last Values WBC 10.9 K/mm3 (4.5-11.0) 08/09/20 07:05 RBC 4.06 M/mm3 (3.65-5.03) 08/09/20 07:05 Hgb 14.0 gm/dl (10.1-14.3) 08/09/20 07:05 Hct 38.9 % (30.3-42.9) D 08/09/20 07:05 MCV 96 fl (79-97) 08/09/20 07:05 MCH 34 pg (28-32) H 08/09/20 07:05 MCHC 36 % (30-34) H 08/09/20 07:05 RDW 14.6 % (13.2-15.2) 08/09/20 07:05 Plt Count 400 K/mm3 (140-440) 08/15/20 15:26 Lymph % (Auto) 21.6 % (13.4-35.0) 07/26/20 07:30 [place] % (Auto) 6.2 % (0.0-7.3) 07/26/20 07:30 Eos % (Auto) 0.5 % (0.0-4.3) 07/26/20 07:30 Baso % (Auto) 0.3 % (0.0-1.8) 07/26/20 07:30 Lymph # (Auto) 2.0 K/mm3 (1.2-5.4) 07/26/20 07:30 [place] # (Auto) 0.6 K/mm3 (0.0-0.8) 07/26/20 07:30 Eos # (Auto) 0.1 K/mm3 (0.0-0.4) 07/26/20 07:30 Baso # (Auto) 0.0 K/mm3 (0.0-0.1) 07/26/20 07:30 Seg Neutrophils % 71.4 % (40.0-70.0) H 07/26/20 07:30 Seg Neutrophils # 6.8 K/mm3 (1.8-7.7) 07/26/20 07:30 PT 12.5 Sec. (12.2-14.9) 08/15/20 15:26 INR 0.92 (0.87-1.13) 08/15/20 15:26 APTT 20.4 Sec. (24.2-36.6) L 08/15/20 15:26 ABG pH 7.513 pH Units (7.350-7.450) H 08/21/20 18:15 POC ABG pCO2 21.0 mmHg (32.0-48.0) L 08/20/20 01:52 ABG pCO2 33.4 mm Hg 08/21/20 18:15 POC ABG pO2 123.7 mmHg (83-108) H 08/20/20 01:52 ABG pO2 87.9 mm Hg (80.0-90.0) 08/21/20 18:15 POC ABG HCO3 18.5 08/20/20 01:52 ABG HCO3 26.2 mmol/L (20.0-26.0) H 08/21/20 18:15 ABG O2 Saturation 97.4 % (95.0-99.0) 08/21/20 18:15 ABG O2 Content 14.2 (0.0-44) 08/21/20 18:15 POC ABG Base Excess -1.4 08/20/20 01:52 ABG Base Excess 3.4 mmol/L (-2.0-3.0) H 08/21/20 18:15 ABG Hemoglobin 10.5 gm/dl (12.0-16.0) L 08/21/20 18:15 ABG Carboxyhemoglobin 1.1 % (0.0-5.0) 08/21/20 18:15 ABG Methemoglobin 0.5 % (0.0-1.5) 08/21/20 18:15 ABG Sodium 133.9 mmol/L (136.0-145.0) L 08/20/20 01:52 ABG Potassium 4.3 mmol/L (3.40-4.50) 08/20/20 01:52 ABG Chloride 98.0 mmol/L (98-107) 08/20/20 01:52 ABG Glucose 151 mg/dL (65-95) H 08/20/20 01:52 Oxyhemoglobin 95.8 % (95.0-99.0) 08/21/20 18:15 FiO2 40 % 08/21/20 18:15 Sodium 140 mmol/L (137-145) 08/21/20 05:41 Potassium 4.1 mmol/L (3.6-5.0) D 08/21/20 05:41 Chloride 100.3 mmol/L (98-107) 08/21/20 05:41 Carbon Dioxide 26 mmol/L (22-30) 08/21/20 05:41 Anion Gap 18 mmol/L 08/21/20 05:41 BUN 23 mg/dL (7-17) H 08/21/20 05:41 Creatinine 0.2 mg/dL (0.6-1.2) L D 08/21/20 05:41 Estimated GFR > 60 ml/min 08/21/20 05:41 BUN/Creatinine Ratio 115 % 08/21/20 05:41 Glucose 102 mg/dL (65-100) H 08/21/20 05:41 POC Glucose 108 mg/dL (70-105) H 08/21/20 18:38 Lactic Acid 1.50 mmol/L (0.7-2.0) 07/12/20 00:04 Phosphorus 3.10 mg/dL (2.5-4.5) 07/24/20 06:00 Magnesium 2.10 mg/dL (1.7-2.3) 07/24/20 06:00 Calcium 8.2 mg/dL (8.4-10.2) L 08/21/20 05:41 Direct Bilirubin < 0.2 mg/dL (0-0.2) 07/13/20 09:33 Ammonia 28.0 umol/L (25-60) 07/11/20 21:17 Total Bilirubin 0.40 mg/dL (0.1-1.2) 08/06/20 08:59 Total Creatine Kinase 102 units/L (30-135) 07/17/20 05:21 CK-MB (CK-2) 9.2 ng/mL (0.0-4.0) H 07/12/20 15:13 AST 63 units/L (5-40) H 08/06/20 08:59 ALT 41 units/L (7-56) 08/06/20 08:59 CK-MB (CK-2) Rel Index 0.4 (0-4) 07/12/20 15:13 Alkaline Phosphatase 59 units/L (35-129) 08/06/20 08:59 Troponin T < 0.010 ng/mL (0.00-0.029) 07/11/20 21:17 Total Protein 6.6 g/dL (6.3-8.2) 08/06/20 08:59 Albumin 3.8 g/dL (3.9-5) L 08/06/20 08:59 Albumin/Globulin Ratio 1.4 % 08/06/20 08:59 Arterial Blood Glucose 151 mg/dL (65-95) H 08/20/20 01:52 Arterial Blood Ionized Calcium 4.4 mg/dL (4.6-5.3) L 08/20/20 01:52 Urine Color Yellow (Yellow) 07/11/20 Unknown Urine Turbidity Clear (Clear) 07/11/20 Unknown Urine pH 6.0 (5.0-7.0) 07/11/20 Unknown Ur Specific [place] 1.023 (1.003-1.030) 07/11/20 Unknown Urine Protein 30 mg/dl mg/dL (Negative) 07/11/20 Unknown Urine Glucose (UA) Neg mg/dL (Negative) 07/11/20 Unknown Urine Ketones Tr mg/dL (Negative) 07/11/20 Unknown Urine Blood Neg (Negative) 07/11/20 Unknown Urine Nitrite Neg (Negative) 07/11/20 Unknown Urine Bilirubin Neg (Negative) 07/11/20 Unknown Urine Urobilinogen 2.0 mg/dL (<2.0) 07/11/20 Unknown Ur Leukocyte Esterase Neg (Negative) 07/11/20 Unknown Urine WBC (Auto) 2.0 /HPF (0.0-6.0) 07/11/20 Unknown Urine RBC (Auto) 3.0 /HPF (0.0-6.0) 07/11/20 Unknown U Epithel Cells (Auto) 3.0 /HPF (0-13.0) 07/11/20 Unknown Urine Mucus 3+ /HPF 07/11/20 Unknown CSF Appearance Clear 08/16/20 14:18 CSF Color Colorless 08/16/20 14:18 CSF WBC 6 /mm3 (1-10) 08/16/20 14:18 CSF RBC 4 /mm3 (0-0) 08/16/20 14:18 CSF Seg Neutrophils 0 % (0-6) 08/16/20 14:18 CSF Lymphocytes % 90.0 % (40-80) 08/16/20 14:18 CSF Reactive Lymphs 0 % 08/16/20 14:18 CSF Monocytes % 10.0 % (15-45) 08/16/20 14:18 CSF Eosinophils % 0 % 08/16/20 14:18 CSF Basophils 0 % 08/16/20 14:18 CSF Pathologist Review C 08/16/20 14:18 CSF Glucose 60 mg/dL 08/16/20 14:18 CSF Total Protein 94 mg/dL 08/16/20 14:18 CSF VDRL Nonreactive (Nonreactive) 08/16/20 14:18 Salicylates < 0.3 mg/dL (2.8-20.0) L 07/11/20 21:17 Urine Opiates Screen Presumptive negative 07/11/20 Unknown Urine Methadone Screen Presumptive negative 07/11/20 Unknown Acetaminophen 5.0 ug/mL (10.0-30.0) L 07/11/20 21:17 Ur Barbiturates Screen Presumptive negative 07/11/20 Unknown Ur Phencyclidine Scrn Presumptive negative 07/11/20 Unknown Phenytoin 8.9 ug/mL (10.0-20.0) L 08/16/20 11:56 Ur Amphetamines Screen Presumptive negative 07/11/20 Unknown Valproic Acid 98.6 ug/mL (50-100) 08/20/20 15:06 U Benzodiazepines Scrn Presumptive negative 07/11/20 Unknown Urine Cocaine Screen Presumptive negative 07/11/20 Unknown U Marijuana (THC) Screen Presumptive negative 07/11/20 Unknown Drugs of Abuse Note Disclamer 07/11/20 Unknown C. difficile Tox (PCR) Positive (Negative) 07/19/20 18:51 Enterovirus (PCR) Cmmt 08/16/20 14:18 Ledesma/IV: Voiding Method Diaper IV Catheter Type [Right INT / Saline Lock Antecubital] IV Catheter Type [Left Forearm INT / Saline Lock ] IV Catheter Type [Right Hand] INT / Saline Lock IV Catheter Type [Right INT / Saline Lock Forearm] IV Catheter Type [Left Hand] INT / Saline Lock Active Medications - Current Medications Current Medications: Generic Name Dose Route Start Last Admin Trade Name Freq PRN Reason Stop Dose Admin Acetaminophen 650 mg 07/12/20 01:05 07/27/20 01:57 Tylenol DC 650 mg Q4H PRN Administration Fever >101 Lipase/Protease/Amylase 1 each 07/22/20 07:44 08/14/20 10:25 Pancreaze 10,500 Unit FEEDTUBE 1 each PRN PRN Administration For Clogged Feeding Tube Haloperidol Lactate 5 mg 07/18/20 13:15 07/21/20 22:06 Haldol IM 5 mg Q6H PRN Administration Agitation Heparin Sodium (Porcine) 5,000 unit 07/12/20 10:00 08/21/20 11:52 Heparin SUB-Q 5,000 unit Q8H KEITH Administration Hydrophilic Ointment 1 applic 08/21/20 18:21 Vaseline Lip Therapy TP Q2HR PRN Dry Lips Cefepime HCl 2 gm in 100 mls @ 200 mls/hr 08/20/20 06:00 08/21/20 14:01 Cefepime/Ns 2 Gm/100 Ml IV 08/26/20 23:59 200 mls/hr Q8HR KEITH Administration Vancomycin HCl 1 gm in 250 mls @ 166.667 mls/hr 08/20/20 22:00 08/21/20 18:51 Vancomycin/Ns 1 Gm/250 Ml IV 08/26/20 23:59 Not Given Q18H KEITH Propofol 1,000 mg in 100 mls @ 1.524 mls/hr 08/21/20 20:00 Diprivan 10 Mg/Ml IV TITR KEITH Protocol 5 MCG/KG/MIN Insulin Human Regular 0 unit 07/23/20 09:00 08/21/20 18:52 Humulin R SUB-Q Not Given Q6HR KEITH Protocol Lacosamide 200 mg 08/21/20 22:00 Vimpat PO Q12HR KEITH Levetiracetam 1,500 mg 08/21/20 22:00 Keppra PO BID KEITH Lorazepam 2 mg 08/06/20 05:05 08/12/20 17:37 Ativan IV 2 mg Q4H PRN Administration Agitation Megestrol Acetate 400 mg 07/22/20 10:00 08/21/20 11:14 Megestrol PO 400 mg QDAY KEITH Administration Multi-Ingred Cream/Lotion/Oil/Oint 1 applic 08/21/20 18:21 Artificial Tears Ophth Oint OU Q4HR PRN Dry Eye(s) Olanzapine 2.5 mg 07/25/20 22:00 08/21/20 00:12 Zyprexa PO 2.5 mg QHS KEITH Administration Ondansetron HCl 4 mg 07/12/20 01:06 Zofran IV Q8H PRN Nausea And Vomiting Phenytoin 100 mg 08/21/20 18:00 Dilantin IV Q8H KEITH Simple Syrup 15 ml 07/22/20 07:44 Simple Syrup FEEDTUBE PRN PRN Hypoglycemia Simple Syrup 30 ml 07/22/20 07:44 Simple Syrup FEEDTUBE PRN PRN Hypoglycemia Sodium Bicarbonate 325 mg 07/22/20 07:44 Sodium Bicarbonate FEEDTUBE PRN PRN For Clogged Feeding Tube Valproic Acid 1,000 mg 08/18/20 22:00 08/21/20 11:15 Depakene Liq FEEDTUBE 1,000 mg Q12HR KEITH Administration Nutrition/Malnutrition Assess - Dietary Evaluation Nutrition/Malnutrition Findings: Nutrition Notes Start: 07/12/20 11:40 Freq: Status: Active Protocol: Document 08/15/20 13:06 SHIRLEY (Rec: 08/15/20 13:17 SHIRLEY [id number]) Co-Sign 08/15/20 13:06 LM Nutrition Notes Initial or Follow up Reassessment Other Pertinent Diagnosis C. diff (+), AMS, Rhabdomyolysis, dehydration, Hx of stroke Current Diet Osmolite at 35ml/hr Labs/Tests Reviewed Pertinent Medications Reviewed Height 5 ft Weight 52 kg [place] Body Weight (kg) 45.45 BMI 22.4 Subjective/Other Information F/u stable TF. Per nursing notes, pt's TF is stable at 35ml/hr and still well tolerated. Percent of energy/protein needs met: 100%/90% Burn Absent Trauma Absent GI Symptoms None Current % PO Negligible Minimum of two criteria No Energy Intake (severe) < or equal to 50% Estimated Energy Requirement > or equal to 5 days #1 Nutrition Diagnosis Inadequate oral intake Diagnosis Progress(for reassessment Continues documentation) Is patient on ventilator? No Is Patient Ambulatory and/or Out of Bed No REE-([facility]-confined to bed) 1213.032 Calculation Used for Recommendations [facility] Additional Notes Protein Needs 59-70g (1-1.2g/ kg) Fluid Needs: 1ml/kcal Nutrition Intervention Change Diet Order: Continue Nutrition Support: Osmolite 1.5 at 35ml/hr. Flush 60ml q4hr for hyponatremia Flush 100ml q4hr once hyponatremia resolved. Kcal 1,260 Protein (gm) 53 Fluid (mL) 640 Goal #1 Patient meets at least 75% of energy and protein needs via TF Anticipated Discharge Needs: Recommend Jevity 1.2 bolus 5 cans/day: Breakfast 2 cans ( 474ml), Lunch 2 cans (474ml), Dinner 1 can (237ml) with flush 100ml before and after bolus. Follow-Up By: 08/22/20 Additional Comments F/u stable TF and discharge plan
[2020-08-21] MEDS ORDERED: LORazepam 2 MG/ML VIAL IV ONE (16:53)
--- NOTE | 2020-08-21 17:03 | Progress Note ---
Assessment and Plan 60 yo female with schizoaffective d/o w/ noted akinetic state. 1. Status Epilepticus - noted on 2 EEGs so far; patient requires transfer to a facility w/ cEEG monitoring for higher level of care as EEG here is intermittently available and intermittently read at present; continue depakote 1000 mg bid; continue Keppra at 1500 mg bid; continue vimpat 200 mg iv q12; s/p Ativan 1 mg IV x 1 dose ordered right now; normal MRI Brain w/ wo contrast; patient needs to be intubated and started on a Versed or Ativan gtt or may even need phenobarbital coma initiated; will add-on Fosphentoin (load and maintenance) despite drug-drug interaction. 2. Therapeutic Drug Monitoring - last depakote level is 98; recheck vivien tin/valproic acid levels in AM and adjust accordingly; monitor ammonia levels. 3. Stroke - pending MRI Deandre w/ wo contrast if no contraindications (s/p whole body Xray for metal and if clear, get MRI); recommend CTA Head w/ wo contrast; aspirin 81 mg peg qday; further testing based on imaging findings. 4. Encephalitis - no evidence noted per initial CSF findings. 5. 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 6. Schizoaffective d/o - per psychiatry. 7. Spoke to primary attending for today, Dr. Salcedo, regarding the need for t ransfer to a facility w/ continuous video-EEG monitoring for a higher level of neurologic care. Recommend q1 hour neurochecks with intubation for airway protection. Patient is currently on 3 anti-seizure medications and still noted today with focal seizure-like activity. Woody Nails MD Neurology Subjective Date of service: 08/21/20 Principal diagnosis: C diff Interval history: Discovered accidentally that the patient is still here as of yesterday late afternoon and was not transferred. Not clear to me as to why this transfer has not taken place to a higher level of care where this patient needs continuous eeg monitoring. Spoke to the attending today, Dr. Salcedo and he is unsure of why the patient was not transferred yet except noted that Dr. Greco's notes state "resolved" with regards to seizure activity. Objective - Exam Narrative Exam: Upon walking into the room: +twitching noted of right hand and patient is obtunded; - Vital Sign Vital Signs - 12hr 08/21/20 12:00 Temperature 97.7 F Pulse Rate 96 H Respiratory 20 Rate Blood Pressure 99/54 [Left] O2 Sat by Pulse 97 Oximetry - Laboratory Findings CBC and BMP: 08/15/20 15:26 08/21/20 05:41 Abnormal Lab Findings: Abnormal Labs 07/11/20 07/11/20 07/11/20 21:17 21:17 21:17 WBC 11.7 H Hgb 14.4 H Hct MCH 35 H MCHC 36 H Plt Count [place] % (Auto) [place] # Seg Neutrophils % 72.1 H Seg Neutrophils # 8.5 H PT INR APTT ABG pH POC ABG pCO2 POC ABG pO2 ABG pO2 ABG HCO3 ABG Base Excess ABG Sodium ABG Potassium ABG Glucose Oxyhemoglobin Sodium Potassium 3.5 L Chloride Carbon Dioxide BUN 20 H Creatinine 0.5 L Glucose 122 H POC Glucose Calcium Phosphorus Magnesium AST 86 H ALT 68 H Total Creatine Kinase 1998 H CK-MB (CK-2) Total Protein Albumin Arterial Blood Glucose Arterial Blood Ionized Calcium Salicylates < 0.3 L Acetaminophen Valproic Acid Phenytoin 07/11/20 07/12/20 07/12/20 21:17 06:26 15:13 WBC Hgb Hct MCH MCHC Plt Count [place] % (Auto) [place] # Seg Neutrophils % Seg Neutrophils # PT INR APTT ABG pH POC ABG pCO2 POC ABG pO2 ABG pO2 ABG HCO3 ABG Base Excess ABG Sodium ABG Potassium ABG Glucose Oxyhemoglobin Sodium Potassium Chloride Carbon Dioxide BUN Creatinine Glucose POC Glucose Calcium Phosphorus Magnesium AST ALT Total Creatine Kinase 1888 H 1852 H CK-MB (CK-2) 14.8 H 9.2 H Total Protein Albumin Arterial Blood Glucose Arterial Blood Ionized Calcium Salicylates Acetaminophen 5.0 L Valproic Acid Phenytoin 07/13/20 07/13/20 07/14/20 09:33 09:33 01:52 WBC Hgb Hct MCH MCHC Plt Count [place] % (Auto) [place] # Seg Neutrophils % Seg Neutrophils # PT INR APTT ABG pH POC ABG pCO2 POC ABG pO2 ABG pO2 ABG HCO3 ABG Base Excess ABG Sodium ABG Potassium ABG Glucose Oxyhemoglobin Sodium Potassium 2.8 L* 3.2 L Chloride 107.9 H Carbon Dioxide BUN Creatinine 0.3 L Glucose POC Glucose Calcium 7.9 L D Phosphorus Magnesium AST 83 H ALT Total Creatine Kinase 1678 H CK-MB (CK-2) Total Protein 5.3 L D Albumin 3.0 L Arterial Blood Glucose Arterial Blood Ionized Calcium Salicylates Acetaminophen Valproic Acid Phenytoin 07/14/20 07/15/20 07/16/20 15:48 05:55 08:26 WBC Hgb Hct MCH MCHC Plt Count [place] % (Auto) [place] # Seg Neutrophils % Seg Neutrophils # PT INR APTT ABG pH POC ABG pCO2 POC ABG pO2 ABG pO2 ABG HCO3 ABG Base Excess ABG Sodium ABG Potassium ABG Glucose Oxyhemoglobin Sodium Potassium 2.7 L* 3.1 L Chloride 108.0 H Carbon Dioxide 16 L D 14 L BUN 4 L Creatinine 0.3 L 0.3 L Glucose POC Glucose Calcium 8.3 L Phosphorus 2.40 L Magnesium AST ALT Total Creatine Kinase 828 H 425 H 188 H CK-MB (CK-2) Total Protein Albumin Arterial Blood Glucose Arterial Blood Ionized Calcium Salicylates Acetaminophen Valproic Acid Phenytoin 07/17/20 07/17/20 07/18/20 05:21 05:21 05:53 WBC 12.1 H 11.6 H Hgb Hct MCH MCHC Plt Count [place] % (Auto) 7.9 H [place] # 0.9 H Seg Neutrophils % 70.7 H Seg Neutrophils # 8.2 H PT INR APTT ABG pH POC ABG pCO2 POC ABG pO2 ABG pO2 ABG HCO3 ABG Base Excess ABG Sodium ABG Potassium ABG Glucose Oxyhemoglobin Sodium Potassium 3.2 L Chloride Carbon Dioxide BUN Creatinine Glucose POC Glucose Calcium Phosphorus 2.40 L Magnesium AST ALT Total Creatine Kinase CK-MB (CK-2) Total Protein Albumin Arterial Blood Glucose Arterial Blood Ionized Calcium Salicylates Acetaminophen Valproic Acid Phenytoin 07/18/20 07/19/20 07/19/20 05:53 08:12 08:12 WBC Hgb Hct MCH 33 H MCHC 35 H Plt Count [place] % (Auto) [place] # Seg Neutrophils % Seg Neutrophils # PT INR APTT ABG pH POC ABG pCO2 POC ABG pO2 ABG pO2 ABG HCO3 ABG Base Excess ABG Sodium ABG Potassium ABG Glucose Oxyhemoglobin Sodium Potassium Chloride 108.3 H Carbon Dioxide 17 L BUN 5 L Creatinine 0.3 L Glucose POC Glucose Calcium 8.3 L Phosphorus 2.30 L Magnesium AST ALT Total Creatine Kinase CK-MB (CK-2) Total Protein Albumin Arterial Blood Glucose Arterial Blood Ionized Calcium Salicylates Acetaminophen Valproic Acid 7.7 L Phenytoin 07/21/20 07/22/20 07/23/20 06:35 06:59 07:27 WBC Hgb Hct MCH MCHC Plt Count [place] % (Auto) [place] # Seg Neutrophils % Seg Neutrophils # PT INR APTT ABG pH POC ABG pCO2 POC ABG pO2 ABG pO2 ABG HCO3 ABG Base Excess ABG Sodium ABG Potassium ABG Glucose Oxyhemoglobin Sodium 146 H Potassium 2.0 L* D 2.2 L* Chloride Carbon Dioxide 32 H BUN 2 L < 1 L < 1 L Creatinine 0.2 L 0.2 L 0.4 L D Glucose 139 H 130 H 574 H* POC Glucose Calcium 8.0 L 7.0 L D Phosphorus Magnesium 1.60 L AST ALT Total Creatine Kinase CK-MB (CK-2) Total Protein Albumin Arterial Blood Glucose Arterial Blood Ionized Calcium Salicylates Acetaminophen Valproic Acid Phenytoin 07/23/20 07/23/20 07/23/20 10:58 11:16 16:50 WBC Hgb Hct MCH MCHC Plt Count [place] % (Auto) [place] # Seg Neutrophils % Seg Neutrophils # PT INR APTT ABG pH POC ABG pCO2 POC ABG pO2 ABG pO2 ABG HCO3 ABG Base Excess ABG Sodium ABG Potassium ABG Glucose Oxyhemoglobin Sodium 146 H Potassium 3.5 L D Chloride Carbon Dioxide 31 H BUN 2 L Creatinine 0.2 L Glucose 112 H POC Glucose 111 H 137 H Calcium 8.3 L D Phosphorus Magnesium AST ALT Total Creatine Kinase CK-MB (CK-2) Total Protein Albumin Arterial Blood Glucose Arterial Blood Ionized Calcium Salicylates Acetaminophen Valproic Acid Phenytoin 07/23/20 07/24/20 07/24/20 22:33 06:00 08:47 WBC Hgb Hct MCH MCHC Plt Count [place] % (Auto) [place] # Seg Neutrophils % Seg Neutrophils # PT INR APTT ABG pH POC ABG pCO2 POC ABG pO2 ABG pO2 ABG HCO3 ABG Base Excess ABG Sodium ABG Potassium ABG Glucose Oxyhemoglobin Sodium 146 H Potassium 3.0 L Chloride Carbon Dioxide 31 H BUN Creatinine 0.3 L Glucose 140 H POC Glucose 153 H 118 H Calcium Phosphorus Magnesium AST ALT Total Creatine Kinase CK-MB (CK-2) Total Protein Albumin Arterial Blood Glucose Arterial Blood Ionized Calcium Salicylates Acetaminophen Valproic Acid Phenytoin 07/24/20 07/24/20 07/25/20 12:04 17:34 05:58 WBC Hgb Hct MCH MCHC Plt Count [place] % (Auto) [place] # Seg Neutrophils % Seg Neutrophils # PT INR APTT ABG pH POC ABG pCO2 POC ABG pO2 ABG pO2 ABG HCO3 ABG Base Excess ABG Sodium ABG Potassium ABG Glucose Oxyhemoglobin Sodium Potassium Chloride Carbon Dioxide BUN Creatinine Glucose POC Glucose 126 H 146 H 141 H Calcium Phosphorus Magnesium AST ALT Total Creatine Kinase CK-MB (CK-2) Total Protein Albumin Arterial Blood Glucose Arterial Blood Ionized Calcium Salicylates Acetaminophen Valproic Acid Phenytoin 07/25/20 07/25/20 07/25/20 08:09 09:53 12:07 WBC Hgb Hct MCH MCHC Plt Count [place] % (Auto) [place] # Seg Neutrophils % Seg Neutrophils # PT INR APTT ABG pH POC ABG pCO2 POC ABG pO2 ABG pO2 ABG HCO3 ABG Base Excess ABG Sodium ABG Potassium ABG Glucose Oxyhemoglobin Sodium Potassium Chloride Carbon Dioxide BUN Creatinine 0.2 L Glucose 115 H POC Glucose 138 H 131 H Calcium 8.2 L Phosphorus Magnesium AST ALT Total Creatine Kinase CK-MB (CK-2) Total Protein Albumin Arterial Blood Glucose Arterial Blood Ionized Calcium Salicylates Acetaminophen Valproic Acid Phenytoin 07/25/20 07/25/20 07/26/20 17:35 22:31 05:43 WBC Hgb Hct MCH MCHC Plt Count [place] % (Auto) [place] # Seg Neutrophils % Seg Neutrophils # PT INR APTT ABG pH POC ABG pCO2 POC ABG pO2 ABG pO2 ABG HCO3 ABG Base Excess ABG Sodium ABG Potassium ABG Glucose Oxyhemoglobin Sodium Potassium Chloride Carbon Dioxide BUN Creatinine Glucose POC Glucose 125 H 130 H 153 H Calcium Phosphorus Magnesium AST ALT Total Creatine Kinase CK-MB (CK-2) Total Protein Albumin Arterial Blood Glucose Arterial Blood Ionized Calcium Salicylates Acetaminophen Valproic Acid Phenytoin 07/26/20 07/26/20 07/26/20 07:30 07:30 12:01 WBC Hgb Hct MCH 33 H MCHC Plt Count 464 H [place] % (Auto) [place] # Seg Neutrophils % 71.4 H Seg Neutrophils # PT INR APTT ABG pH POC ABG pCO2 POC ABG pO2 ABG pO2 ABG HCO3 ABG Base Excess ABG Sodium ABG Potassium ABG Glucose Oxyhemoglobin Sodium Potassium Chloride Carbon Dioxide BUN Creatinine 0.3 L Glucose 144 H POC Glucose 134 H Calcium Phosphorus Magnesium AST ALT Total Creatine Kinase CK-MB (CK-2) Total Protein Albumin Arterial Blood Glucose Arterial Blood Ionized Calcium Salicylates Acetaminophen Valproic Acid Phenytoin 07/26/20 07/27/20 07/27/20 17:08 06:11 09:25 WBC Hgb Hct MCH MCHC Plt Count [place] % (Auto) [place] # Seg Neutrophils % Seg Neutrophils # PT INR APTT ABG pH POC ABG pCO2 POC ABG pO2 ABG pO2 ABG HCO3 ABG Base Excess ABG Sodium ABG Potassium ABG Glucose Oxyhemoglobin Sodium 136 L Potassium Chloride Carbon Dioxide BUN Creatinine 0.3 L Glucose 120 H POC Glucose 106 H 128 H Calcium Phosphorus Magnesium AST ALT Total Creatine Kinase CK-MB (CK-2) Total Protein Albumin Arterial Blood Glucose Arterial Blood Ionized Calcium Salicylates Acetaminophen Valproic Acid Phenytoin 07/27/20 07/27/20 07/27/20 12:51 17:41 23:40 WBC Hgb Hct MCH MCHC Plt Count [place] % (Auto) [place] # Seg Neutrophils % Seg Neutrophils # PT INR APTT ABG pH POC ABG pCO2 POC ABG pO2 ABG pO2 ABG HCO3 ABG Base Excess ABG Sodium ABG Potassium ABG Glucose Oxyhemoglobin Sodium Potassium Chloride Carbon Dioxide BUN Creatinine Glucose POC Glucose 124 H 111 H 148 H Calcium Phosphorus Magnesium AST ALT Total Creatine Kinase CK-MB (CK-2) Total Protein Albumin Arterial Blood Glucose Arterial Blood Ionized Calcium Salicylates Acetaminophen Valproic Acid Phenytoin 07/28/20 07/28/20 07/28/20 05:00 06:14 11:25 WBC Hgb Hct MCH MCHC Plt Count [place] % (Auto) [place] # Seg Neutrophils % Seg Neutrophils # PT INR APTT ABG pH POC ABG pCO2 POC ABG pO2 ABG pO2 ABG HCO3 ABG Base Excess ABG Sodium ABG Potassium ABG Glucose Oxyhemoglobin Sodium 135 L Potassium 5.1 H Chloride Carbon Dioxide 21 L BUN Creatinine 0.3 L Glucose 131 H POC Glucose 161 H 143 H Calcium Phosphorus Magnesium AST ALT Total Creatine Kinase CK-MB (CK-2) Total Protein Albumin Arterial Blood Glucose Arterial Blood Ionized Calcium Salicylates Acetaminophen Valproic Acid Phenytoin 07/28/20 07/28/20 07/29/20 18:06 23:53 05:36 WBC Hgb Hct MCH MCHC Plt Count [place] % (Auto) [place] # Seg Neutrophils % Seg Neutrophils # PT INR APTT ABG pH POC ABG pCO2 POC ABG pO2 ABG pO2 ABG HCO3 ABG Base Excess ABG Sodium ABG Potassium ABG Glucose Oxyhemoglobin Sodium Potassium Chloride Carbon Dioxide BUN Creatinine 0.3 L Glucose 149 H POC Glucose 160 H 118 H Calcium Phosphorus Magnesium AST ALT Total Creatine Kinase CK-MB (CK-2) Total Protein Albumin Arterial Blood Glucose Arterial Blood Ionized Calcium Salicylates Acetaminophen Valproic Acid Phenytoin 07/29/20 07/29/20 07/29/20 06:46 12:08 17:29 WBC Hgb Hct MCH MCHC Plt Count [place] % (Auto) [place] # Seg Neutrophils % Seg Neutrophils # PT INR APTT ABG pH POC ABG pCO2 POC ABG pO2 ABG pO2 ABG HCO3 ABG Base Excess ABG Sodium ABG Potassium ABG Glucose Oxyhemoglobin Sodium Potassium Chloride Carbon Dioxide BUN Creatinine Glucose POC Glucose 119 H 126 H 148 H Calcium Phosphorus Magnesium AST ALT Total Creatine Kinase CK-MB (CK-2) Total Protein Albumin Arterial Blood Glucose Arterial Blood Ionized Calcium Salicylates Acetaminophen Valproic Acid Phenytoin 07/29/20 07/30/20 07/30/20 23:49 05:48 17:48 WBC Hgb Hct MCH MCHC Plt Count [place] % (Auto) [place] # Seg Neutrophils % Seg Neutrophils # PT INR APTT ABG pH POC ABG pCO2 POC ABG pO2 ABG pO2 ABG HCO3 ABG Base Excess ABG Sodium ABG Potassium ABG Glucose Oxyhemoglobin Sodium Potassium Chloride Carbon Dioxide BUN Creatinine Glucose POC Glucose 119 H 119 H 110 H Calcium Phosphorus Magnesium AST ALT Total Creatine Kinase CK-MB (CK-2) Total Protein Albumin Arterial Blood Glucose Arterial Blood Ionized Calcium Salicylates Acetaminophen Valproic Acid Phenytoin 07/31/20 07/31/20 07/31/20 11:55 12:34 17:18 WBC Hgb Hct MCH MCHC Plt Count [place] % (Auto) [place] # Seg Neutrophils % Seg Neutrophils # PT INR APTT ABG pH POC ABG pCO2 POC ABG pO2 ABG pO2 ABG HCO3 ABG Base Excess ABG Sodium ABG Potassium ABG Glucose Oxyhemoglobin Sodium 134 L Potassium Chloride 97.0 L Carbon Dioxide 21 L BUN 19 H Creatinine 0.3 L Glucose 116 H POC Glucose 119 H 124 H Calcium Phosphorus Magnesium AST ALT Total Creatine Kinase CK-MB (CK-2) Total Protein Albumin Arterial Blood Glucose Arterial Blood Ionized Calcium Salicylates Acetaminophen Valproic Acid Phenytoin 07/31/20 08/01/20 08/01/20 23:30 06:22 06:45 WBC Hgb Hct MCH MCHC Plt Count [place] % (Auto) [place] # Seg Neutrophils % Seg Neutrophils # PT INR APTT ABG pH POC ABG pCO2 POC ABG pO2 ABG pO2 ABG HCO3 ABG Base Excess ABG Sodium ABG Potassium ABG Glucose Oxyhemoglobin Sodium 136 L Potassium Chloride 97.9 L Carbon Dioxide BUN Creatinine 0.3 L Glucose 122 H POC Glucose 138 H 123 H Calcium Phosphorus Magnesium AST ALT Total Creatine Kinase CK-MB (CK-2) Total Protein Albumin Arterial Blood Glucose Arterial Blood Ionized Calcium Salicylates Acetaminophen Valproic Acid Phenytoin 08/01/20 08/02/20 08/02/20 18:17 00:51 06:48 WBC Hgb Hct MCH MCHC Plt Count [place] % (Auto) [place] # Seg Neutrophils % Seg Neutrophils # PT INR APTT ABG pH POC ABG pCO2 POC ABG pO2 ABG pO2 ABG HCO3 ABG Base Excess ABG Sodium ABG Potassium ABG Glucose Oxyhemoglobin Sodium Potassium Chloride Carbon Dioxide BUN Creatinine Glucose POC Glucose 111 H 109 H 123 H Calcium Phosphorus Magnesium AST ALT Total Creatine Kinase CK-MB (CK-2) Total Protein Albumin Arterial Blood Glucose Arterial Blood Ionized Calcium Salicylates Acetaminophen Valproic Acid Phenytoin 08/02/20 08/02/20 08/02/20 12:51 17:55 22:18 WBC Hgb Hct MCH MCHC Plt Count [place] % (Auto) [place] # Seg Neutrophils % Seg Neutrophils # PT INR APTT ABG pH POC ABG pCO2 POC ABG pO2 ABG pO2 ABG HCO3 ABG Base Excess ABG Sodium ABG Potassium ABG Glucose Oxyhemoglobin Sodium Potassium Chloride Carbon Dioxide BUN Creatinine Glucose POC Glucose 135 H 119 H 117 H Calcium Phosphorus Magnesium AST ALT Total Creatine Kinase CK-MB (CK-2) Total Protein Albumin Arterial Blood Glucose Arterial Blood Ionized Calcium Salicylates Acetaminophen Valproic Acid Phenytoin 08/03/20 08/03/20 08/03/20 05:45 06:05 12:15 WBC Hgb Hct MCH MCHC Plt Count [place] % (Auto) [place] # Seg Neutrophils % Seg Neutrophils # PT INR APTT ABG pH POC ABG pCO2 POC ABG pO2 ABG pO2 ABG HCO3 ABG Base Excess ABG Sodium ABG Potassium ABG Glucose Oxyhemoglobin Sodium 135 L Potassium 5.4 H D Chloride 96.2 L Carbon Dioxide BUN Creatinine 0.4 L Glucose 117 H POC Glucose 109 H 127 H Calcium Phosphorus Magnesium AST ALT Total Creatine Kinase CK-MB (CK-2) Total Protein Albumin Arterial Blood Glucose Arterial Blood Ionized Calcium Salicylates Acetaminophen Valproic Acid Phenytoin 08/03/20 08/03/20 08/04/20 17:00 22:35 05:59 WBC Hgb Hct MCH MCHC Plt Count [place] % (Auto) [place] # Seg Neutrophils % Seg Neutrophils # PT INR APTT ABG pH POC ABG pCO2 POC ABG pO2 ABG pO2 ABG HCO3 ABG Base Excess ABG Sodium ABG Potassium ABG Glucose Oxyhemoglobin Sodium Potassium Chloride Carbon Dioxide BUN Creatinine Glucose POC Glucose 117 H 114 H 115 H Calcium Phosphorus Magnesium AST ALT Total Creatine Kinase CK-MB (CK-2) Total Protein Albumin Arterial Blood Glucose Arterial Blood Ionized Calcium Salicylates Acetaminophen Valproic Acid Phenytoin 08/04/20 08/04/20 08/05/20 17:00 23:58 06:33 WBC Hgb Hct MCH MCHC Plt Count [place] % (Auto) [place] # Seg Neutrophils % Seg Neutrophils # PT INR APTT ABG pH POC ABG pCO2 POC ABG pO2 ABG pO2 ABG HCO3 ABG Base Excess ABG Sodium ABG Potassium ABG Glucose Oxyhemoglobin Sodium Potassium Chloride Carbon Dioxide BUN Creatinine Glucose POC Glucose 123 H 110 H 115 H Calcium Phosphorus Magnesium AST ALT Total Creatine Kinase CK-MB (CK-2) Total Protein Albumin Arterial Blood Glucose Arterial Blood Ionized Calcium Salicylates Acetaminophen Valproic Acid Phenytoin 08/06/20 08/06/20 08/07/20 08:59 12:27 00:39 WBC Hgb Hct MCH MCHC Plt Count [place] % (Auto) [place] # Seg Neutrophils % Seg Neutrophils # PT INR APTT ABG pH POC ABG pCO2 POC ABG pO2 ABG pO2 ABG HCO3 ABG Base Excess ABG Sodium ABG Potassium ABG Glucose Oxyhemoglobin Sodium 133 L Potassium Chloride 97.0 L Carbon Dioxide BUN Creatinine 0.3 L Glucose 130 H POC Glucose 112 H 55 L Calcium Phosphorus Magnesium AST 63 H ALT Total Creatine Kinase CK-MB (CK-2) Total Protein Albumin 3.8 L Arterial Blood Glucose Arterial Blood Ionized Calcium Salicylates Acetaminophen Valproic Acid Phenytoin 08/07/20 08/07/20 08/07/20 05:36 07:19 07:19 WBC Hgb 15.2 H Hct 45.5 H MCH 33 H MCHC Plt Count 663 H [place] % (Auto) [place] # Seg Neutrophils % Seg Neutrophils # PT INR APTT ABG pH POC ABG pCO2 POC ABG pO2 ABG pO2 ABG HCO3 ABG Base Excess ABG Sodium ABG Potassium ABG Glucose Oxyhemoglobin Sodium 136 L Potassium Chloride 97.9 L Carbon Dioxide BUN Creatinine 0.3 L Glucose 123 H POC Glucose 118 H Calcium Phosphorus Magnesium AST ALT Total Creatine Kinase CK-MB (CK-2) Total Protein Albumin Arterial Blood Glucose Arterial Blood Ionized Calcium Salicylates Acetaminophen Valproic Acid Phenytoin 08/07/20 08/08/20 08/08/20 15:47 05:24 11:42 WBC Hgb Hct MCH MCHC Plt Count [place] % (Auto) [place] # Seg Neutrophils % Seg Neutrophils # PT 11.7 L INR 0.84 L APTT ABG pH POC ABG pCO2 POC ABG pO2 ABG pO2 ABG HCO3 ABG Base Excess ABG Sodium ABG Potassium ABG Glucose Oxyhemoglobin Sodium Potassium Chloride Carbon Dioxide BUN Creatinine Glucose POC Glucose 115 H 113 H Calcium Phosphorus Magnesium AST ALT Total Creatine Kinase CK-MB (CK-2) Total Protein Albumin Arterial Blood Glucose Arterial Blood Ionized Calcium Salicylates Acetaminophen Valproic Acid Phenytoin 08/08/20 08/09/20 08/09/20 22:24 07:05 07:05 WBC Hgb Hct MCH 34 H MCHC 36 H Plt Count 539 H [place] % (Auto) [place] # Seg Neutrophils % Seg Neutrophils # PT INR APTT ABG pH POC ABG pCO2 POC ABG pO2 ABG pO2 ABG HCO3 ABG Base Excess ABG Sodium ABG Potassium ABG Glucose Oxyhemoglobin Sodium 135 L Potassium 5.2 H Chloride Carbon Dioxide BUN Creatinine 0.4 L Glucose POC Glucose 109 H Calcium Phosphorus Magnesium AST ALT Total Creatine Kinase CK-MB (CK-2) Total Protein Albumin Arterial Blood Glucose Arterial Blood Ionized Calcium Salicylates Acetaminophen Valproic Acid Phenytoin 08/09/20 08/10/20 08/11/20 23:30 13:00 12:10 WBC Hgb Hct MCH MCHC Plt Count [place] % (Auto) [place] # Seg Neutrophils % Seg Neutrophils # PT INR APTT ABG pH POC ABG pCO2 POC ABG pO2 ABG pO2 ABG HCO3 ABG Base Excess ABG Sodium ABG Potassium ABG Glucose Oxyhemoglobin Sodium Potassium Chloride Carbon Dioxide 21 L BUN Creatinine 0.3 L Glucose POC Glucose 208 H 118 H Calcium Phosphorus Magnesium AST ALT Total Creatine Kinase CK-MB (CK-2) Total Protein Albumin Arterial Blood Glucose Arterial Blood Ionized Calcium Salicylates Acetaminophen Valproic Acid Phenytoin 08/11/20 08/11/20 08/12/20 17:49 23:31 06:18 WBC Hgb Hct MCH MCHC Plt Count [place] % (Auto) [place] # Seg Neutrophils % Seg Neutrophils # PT INR APTT ABG pH POC ABG pCO2 POC ABG pO2 ABG pO2 ABG HCO3 ABG Base Excess ABG Sodium ABG Potassium ABG Glucose Oxyhemoglobin Sodium Potassium Chloride Carbon Dioxide BUN Creatinine Glucose POC Glucose 139 H 133 H 132 H Calcium Phosphorus Magnesium AST ALT Total Creatine Kinase CK-MB (CK-2) Total Protein Albumin Arterial Blood Glucose Arterial Blood Ionized Calcium Salicylates Acetaminophen Valproic Acid Phenytoin 08/12/20 08/12/20 08/13/20 12:17 16:40 00:17 WBC Hgb Hct MCH MCHC Plt Count [place] % (Auto) [place] # Seg Neutrophils % Seg Neutrophils # PT INR APTT ABG pH POC ABG pCO2 POC ABG pO2 ABG pO2 ABG HCO3 ABG Base Excess ABG Sodium ABG Potassium ABG Glucose Oxyhemoglobin Sodium Potassium Chloride Carbon Dioxide BUN Creatinine Glucose POC Glucose 124 H 109 H 128 H Calcium Phosphorus Magnesium AST ALT Total Creatine Kinase CK-MB (CK-2) Total Protein Albumin Arterial Blood Glucose Arterial Blood Ionized Calcium Salicylates Acetaminophen Valproic Acid Phenytoin 08/13/20 08/13/20 08/13/20 06:18 16:50 22:40 WBC Hgb Hct MCH MCHC Plt Count [place] % (Auto) [place] # Seg Neutrophils % Seg Neutrophils # PT INR APTT ABG pH POC ABG pCO2 POC ABG pO2 ABG pO2 ABG HCO3 ABG Base Excess ABG Sodium ABG Potassium ABG Glucose Oxyhemoglobin Sodium Potassium Chloride Carbon Dioxide BUN Creatinine Glucose POC Glucose 115 H 119 H 109 H Calcium Phosphorus Magnesium AST ALT Total Creatine Kinase CK-MB (CK-2) Total Protein Albumin Arterial Blood Glucose Arterial Blood Ionized Calcium Salicylates Acetaminophen Valproic Acid Phenytoin 08/14/20 08/14/20 08/15/20 05:13 12:03 09:24 WBC Hgb Hct MCH MCHC Plt Count [place] % (Auto) [place] # Seg Neutrophils % Seg Neutrophils # PT INR APTT ABG pH POC ABG pCO2 POC ABG pO2 ABG pO2 ABG HCO3 ABG Base Excess ABG Sodium ABG Potassium ABG Glucose Oxyhemoglobin Sodium 134 L Potassium Chloride Carbon Dioxide 14 L D BUN Creatinine 0.3 L Glucose 121 H POC Glucose 122 H 126 H Calcium Phosphorus Magnesium AST ALT Total Creatine Kinase CK-MB (CK-2) Total Protein Albumin Arterial Blood Glucose Arterial Blood Ionized Calcium Salicylates Acetaminophen Valproic Acid Phenytoin 08/15/20 08/15/20 08/15/20 12:03 15:26 17:08 WBC Hgb Hct MCH MCHC Plt Count [place] % (Auto) [place] # Seg Neutrophils % Seg Neutrophils # PT INR APTT 20.4 L ABG pH POC ABG pCO2 POC ABG pO2 ABG pO2 ABG HCO3 ABG Base Excess ABG Sodium ABG Potassium ABG Glucose Oxyhemoglobin Sodium Potassium Chloride Carbon Dioxide BUN Creatinine Glucose POC Glucose 108 H 137 H Calcium Phosphorus Magnesium AST ALT Total Creatine Kinase CK-MB (CK-2) Total Protein Albumin Arterial Blood Glucose Arterial Blood Ionized Calcium Salicylates Acetaminophen Valproic Acid Phenytoin 08/15/20 08/16/20 08/16/20 23:11 11:56 11:56 WBC Hgb Hct MCH MCHC Plt Count [place] % (Auto) [place] # Seg Neutrophils % Seg Neutrophils # PT INR APTT ABG pH POC ABG pCO2 POC ABG pO2 ABG pO2 ABG HCO3 ABG Base Excess ABG Sodium ABG Potassium ABG Glucose Oxyhemoglobin Sodium 131 L Potassium Chloride 91.6 L Carbon Dioxide BUN Creatinine 0.3 L Glucose 169 H POC Glucose 152 H Calcium Phosphorus Magnesium AST ALT Total Creatine Kinase CK-MB (CK-2) Total Protein Albumin Arterial Blood Glucose Arterial Blood Ionized Calcium Salicylates Acetaminophen Valproic Acid Phenytoin 8.9 L 08/16/20 08/17/20 08/17/20 16:45 04:48 05:26 WBC Hgb Hct MCH MCHC Plt Count Kimball % (Auto) Kimball # Seg Neutrophils % Seg Neutrophils # PT INR APTT ABG pH POC ABG pCO2 POC ABG pO2 ABG pO2 ABG HCO3 ABG Base Excess ABG Sodium ABG Potassium ABG Glucose Oxyhemoglobin Sodium 134 L Potassium Chloride 94.4 L Carbon Dioxide BUN Creatinine 0.3 L Glucose 122 H POC Glucose 125 H 122 H Calcium Phosphorus Magnesium AST ALT Total Creatine Kinase CK-MB (CK-2) Total Protein Albumin Arterial Blood Glucose Arterial Blood Ionized Calcium Salicylates Acetaminophen Valproic Acid Phenytoin 08/17/20 08/17/20 08/18/20 16:30 19:39 00:59 WBC Hgb Hct MCH MCHC Plt Count Kimball % (Auto) Kimball # Seg Neutrophils % Seg Neutrophils # PT INR APTT ABG pH POC ABG pCO2 POC ABG pO2 ABG pO2 ABG HCO3 ABG Base Excess ABG Sodium ABG Potassium ABG Glucose Oxyhemoglobin Sodium 133 L Potassium Chloride 94.0 L Carbon Dioxide BUN Creatinine 0.2 L Glucose 125 H POC Glucose 126 H 120 H Calcium Phosphorus Magnesium AST ALT Total Creatine Kinase CK-MB (CK-2) Total Protein Albumin Arterial Blood Glucose Arterial Blood Ionized Calcium Salicylates Acetaminophen Valproic Acid Phenytoin 08/18/20 08/18/20 08/19/20 07:13 17:23 00:48 WBC Hgb Hct MCH MCHC Plt Count Kimball % (Auto) Kimball # Seg Neutrophils % Seg Neutrophils # PT INR APTT ABG pH POC ABG pCO2 POC ABG pO2 ABG pO2 ABG HCO3 ABG Base Excess ABG Sodium ABG Potassium ABG Glucose Oxyhemoglobin Sodium Potassium Chloride Carbon Dioxide BUN Creatinine Glucose POC Glucose 127 H 109 H 116 H Calcium Phosphorus Magnesium AST ALT Total Creatine Kinase CK-MB (CK-2) Total Protein Albumin Arterial Blood Glucose Arterial Blood Ionized Calcium Salicylates Acetaminophen Valproic Acid Phenytoin 08/19/20 08/19/20 08/19/20 11:14 16:54 21:29 WBC Hgb Hct MCH MCHC Plt Count Kimball % (Auto) Kimball # Seg Neutrophils % Seg Neutrophils # PT INR APTT ABG pH 7.478 H POC ABG pCO2 POC ABG pO2 ABG pO2 68.2 L ABG HCO3 18.8 L ABG Base Excess -2.9 L ABG Sodium ABG Potassium ABG Glucose Oxyhemoglobin 93.8 L Sodium Potassium Chloride Carbon Dioxide BUN Creatinine Glucose POC Glucose 110 H 113 H Calcium Phosphorus Magnesium AST ALT Total Creatine Kinase CK-MB (CK-2) Total Protein Albumin Arterial Blood Glucose Arterial Blood Ionized Calcium Salicylates Acetaminophen Valproic Acid Phenytoin 08/19/20 08/20/20 08/20/20 23:53 00:12 01:52 WBC Hgb Hct MCH MCHC Plt Count Kimball % (Auto) Kimball # Seg Neutrophils % Seg Neutrophils # PT INR APTT ABG pH 7.496 H 7.562 H POC ABG pCO2 21.8 L 21.0 L POC ABG pO2 123.7 H ABG pO2 ABG HCO3 ABG Base Excess ABG Sodium 133.1 L 133.9 L ABG Potassium 4.7 H ABG Glucose 202 H 151 H Oxyhemoglobin Sodium Potassium Chloride Carbon Dioxide BUN Creatinine Glucose POC Glucose 183 H Calcium Phosphorus Magnesium AST ALT Total Creatine Kinase CK-MB (CK-2) Total Protein Albumin Arterial Blood Glucose 202 H 151 H Arterial Blood Ionized Calcium 4.4 L Salicylates Acetaminophen Valproic Acid Phenytoin 08/20/20 08/20/20 08/20/20 06:19 09:31 12:33 WBC Hgb Hct MCH MCHC Plt Count Kimball % (Auto) Kimball # Seg Neutrophils % Seg Neutrophils # PT INR APTT ABG pH POC ABG pCO2 POC ABG pO2 ABG pO2 ABG HCO3 ABG Base Excess ABG Sodium ABG Potassium ABG Glucose Oxyhemoglobin Sodium Potassium 5.2 H Chloride Carbon Dioxide BUN 34 H Creatinine Glucose 149 H POC Glucose 124 H 109 H Calcium 8.3 L Phosphorus Magnesium AST ALT Total Creatine Kinase CK-MB (CK-2) Total Protein Albumin Arterial Blood Glucose Arterial Blood Ionized Calcium Salicylates Acetaminophen Valproic Acid Phenytoin 08/20/20 08/21/20 08/21/20 18:26 00:58 05:21 WBC Hgb Hct MCH MCHC Plt Count [place] % (Auto) Kimball # Seg Neutrophils % Seg Neutrophils # PT INR APTT ABG pH POC ABG pCO2 POC ABG pO2 ABG pO2 ABG HCO3 ABG Base Excess ABG Sodium ABG Potassium ABG Glucose Oxyhemoglobin Sodium Potassium Chloride Carbon Dioxide BUN Creatinine Glucose POC Glucose 133 H 143 H 106 H Calcium Phosphorus Magnesium AST ALT Total Creatine Kinase CK-MB (CK-2) Total Protein Albumin Arterial Blood Glucose Arterial Blood Ionized Calcium Salicylates Acetaminophen Valproic Acid Phenytoin 08/21/20 08/21/20 05:41 11:41 WBC Hgb Hct MCH MCHC Plt Count Kimball % (Auto) Kimball # Seg Neutrophils % Seg Neutrophils # PT INR APTT ABG pH POC ABG pCO2 POC ABG pO2 ABG pO2 ABG HCO3 ABG Base Excess ABG Sodium ABG Potassium ABG Glucose Oxyhemoglobin Sodium Potassium Chloride Carbon Dioxide BUN 23 H Creatinine 0.2 L D Glucose 102 H POC Glucose 138 H Calcium 8.2 L Phosphorus Magnesium AST ALT Total Creatine Kinase CK-MB (CK-2) Total Protein Albumin Arterial Blood Glucose Arterial Blood Ionized Calcium Salicylates Acetaminophen Valproic Acid Phenytoin
[2020-08-21] MEDS ORDERED: FOSPHENYTOIN 500 MG PE/10 ML INJ IV ONE (17:04)
[2020-08-21] MEDS ORDERED: FOSPHENYTOIN 1,000 MG.PE in SODIUM CHLORIDE 0.9% 100 ML IV ONE (18:00)
[2020-08-21] MEDS ORDERED: LIP THERAPY VASELINE TP PRN (18:21)
[2020-08-21] MEDS ORDERED: MINERAL OIL/PETROLATUM, WHITE OPHTH OINT 3.5 GM OU PRN (18:21)
[2020-08-21 18:24] LABS: ABG Base Excess 3.4 mmol/L (-2.0-3.0); ABG HCO3 26.2 mmol/L (20.0-26.0); ABG Methemoglobin 0.5 % (0.0-1.5); ABG Oxygen Saturation 97.4 % (95.0-99.0); ABG PCO2 33.4 mm Hg; ABG PH 7.513 pH Units (7.350-7.450); ABG PO2 87.9 mm Hg (80.0-90.0)
--- NOTE | 2020-08-21 19:26 | Event Note ---
Date: 08/21/20 Was called in to intubate patient and I came in from home to do so. When I arrived, the patient was in room 370 resting comfortably. No seizure activity observed. Respirations unlabored and adequate. SpO2 is 100%. I spoke with [place] RN who was taking care of the patient. She was unaware of the need to intubate, much less a transfer to ICU. Upon reviewing the neurologist's note, he recommended transfer to another facility and was surprised pt was not yet transferred. 7. Spoke to primary attending for today, Dr. Salcedo, regarding the need for transfer to a facility w/ continuous video-EEG monitoring for a higher level of neurologic care. Recommend q1 hour neurochecks with intubation for airway protection. Patient is currently on 3 anti-seizure medications and still noted today with focal seizure-like activity. Discovered accidentally that the patient is still here as of yesterday late afternoon and was not transferred. Not clear to me as to why this transfer has not taken place to a higher level of care where this patient needs continuous eeg monitoring. Spoke to the attending today, Dr. Salcedo and he is unsure of why the patient was not transferred yet except noted that Dr. Greco's notes state "resolved" with regards to seizure activity. In light of patient's stable condition at the present and no one who knows what's going on, I will not intubate her.
--- NOTE | 2020-08-21 20:42 | Event Note ---
Date: 08/21/20 Initiated transfer to [facility] Initiated transfer for continuous EEG monitoring No seizures in the last 24 hours except occasional twitching in the right thumb. Patient is resting comfortably. [place] transfer center called back The patient is in utilization review Informed the transfer center about the patient being on 3 antiseizure medicatio ns Patient will be transferred to ICU for closer monitoring
[2020-08-21] MEDS: levETIRAcetam 500 MG/5 ML ORAL LIQD PO SCH (22:39)
[2020-08-21] MEDS: LACOSAMIDE 100 MG TAB PO SCH (22:40)
[2020-08-21] MEDS: PHENYTOIN 100 MG/2 ML VIAL IV SCH (22:42)
[2020-08-22] MEDS: INSULIN REGULAR, HUMAN 100 UNIT/ML 3ML VIAL SUB-Q SCH ×4 (00:52→18:30)
[2020-08-22] MEDS ORDERED: SODIUM CHLORIDE 0.9% 500 ML 500 ML IV ONE (02:40)
--- NOTE | 2020-08-22 02:50 | XRay Report ---
CHEST 1 VIEW INDICATION / CLINICAL INFORMATION: follow up respiratory failure. COMPARISON: 08/19/2020 FINDINGS: SUPPORT DEVICES: None. HEART / MEDIASTINUM: Unchanged LUNGS / PLEURA: There is mild improvement in basilar airspace opacities. No pneumothorax. ADDITIONAL FINDINGS: No significant additional findings. IMPRESSION: 1. Basilar airspace opacities are mildly improved. Signer Name: Bj Meyers MD Signed: 08/22/2020 2:45 AM Workstation Name: [id number]
[2020-08-22] MEDS: HEPARIN 5,000 UNIT/1 ML VIAL SUB-Q SCH ×3 (02:59→17:10)
[2020-08-22] MEDS: DOPamine/D5W 800 MG/250 ML 800 MG/250 ML BAG IV SCH (04:55)
[2020-08-22] MEDS: PHENYTOIN 100 MG/2 ML VIAL IV SCH (05:39)
[2020-08-22] MEDS: CEFEPIME/NS 2 GM/100 ML 2 GM/100 ML BAG IV SCH ×3 (05:39→21:03)
[2020-08-22 06:48] LABS: Hematocrit 34.1 % (30.3-42.9); Hemoglobin 11.5 gm/dl (10.1-14.3); Mean Corpuscular HGB Conc 34 % (30-34); Mean Corpuscular Volume 97 fl (79-97); Red Blood Count 3.51 M/mm3 (3.65-5.03); Red Cell Distribution Width 14.8 % (13.2-15.2)
[2020-08-22 07:00] LABS: Platelet Count 299 K/mm3 (140-440)
[2020-08-22] MEDS: LORazepam 2 MG/ML VIAL IV PRN (08:05)
[2020-08-22] MEDS: VANCOMYCIN/NS 1 GM/250 ML 1 GM/250 ML BAG IV SCH (09:23)
[2020-08-22] MEDS: VALPROIC ACID 250 MG/5 ML ORAL LIQD FEEDTUBE SCH ×2 (09:24→21:04)
[2020-08-22] MEDS: levETIRAcetam 500 MG/5 ML ORAL LIQD PO SCH ×2 (09:24→21:04)
[2020-08-22] MEDS: LACOSAMIDE 100 MG TAB PO SCH ×2 (09:24→21:04)
[2020-08-22] MEDS: MEGESTROL 400 MG/10 ML ORAL LIQD PO SCH (09:24)
[2020-08-22] MEDS: PHENYTOIN 100 MG in SODIUM CHLORIDE 0.9% 100 ML IV SCH ×3 (10:44→21:05)
[2020-08-22] MEDS ORDERED: MIDAZOLAM 5 MG/5 ML INJ MDV IV ONE (11:00)
[2020-08-22] MEDS ORDERED: fentaNYL 100 MCG/2 ML INJ IV ONE (11:00)
[2020-08-22] MEDS ORDERED: MINERAL OIL/PETROLATUM, WHITE OPHTH OINT 3.5 GM OU PRN (11:10)
[2020-08-22] MEDS ORDERED: LORazepam 2 MG/ML VIAL IV PRN (11:10)
--- NOTE | 2020-08-22 11:29 | XRay Report ---
CHEST 1 VIEW INDICATION: EET PLACEMENT COMPARISON: Earlier exam same day FINDINGS: Support devices: Endotracheal tube has been placed and is in good position. Heart: Normal and unchanged Lungs/Pleura: Left basilar disease persists, atelectasis versus pneumonia. No new disease. IMPRESSION: 1. No new disease after endotracheal tube placement. Signer Name: Jhony Quintero MD Signed: 08/22/2020 11:25 AM Workstation Name: [email or web address]
[2020-08-22] MEDS: LORazepam 100 MG in SODIUM CHLORIDE 0.9% 50 ML, EMPTY BAG 0 ML IV SCH (11:51)
--- NOTE | 2020-08-22 12:23 | Progress Note ---
Assessment and Plan Assessment and plan: 60-year-old female patient with schizoaffective disorder with active hallucinations and confusion presented from [facility] for altered mental status and poor intake on 07/13. She was found to have rhabdomyolysis and electrolyte imbalances. She then developed C. difficile diarrhea and she has completed her regimen of p.o. vancomycin from 07/20-08/03. RN stated patient had to liquid bowel movements today however patient is on vancomycin. Per policy if patient has the decreased BMs she was not a C. difficile sample. At the time of my exam this afternoon the patient was in her usual state with no focal seizure activity noted. However this evening when neurology examined her she was noted to have another seizure and was given Ativan IV. Antiepileptic medications adjusted. Dr. Nails spoke to Dr. Taylor about need to transfer for continuous EEG. He also recommended every hour neurochecks and intubation. Stat ABG ordered. 07/13; patient's CK levels trending down on 1678, continue IV hydration patient is more alert at times, hallucinating, Noncommunicative, severe hypokalemia, replace per protocol 07/14; potassium level significantly improved today to 3.2, replenish per protocol. CK levels trending down 828, continue IV hydration, monitor electrolytes 07/15; patient refused potassium yesterday today potassium levels again 2.7 We will add KCl to IV fluids, and IV K riders, monitor electrolytes. CK level 425. Refusing to eat confused noncommunicative. Possible inpatient psych admission when medically stable 07/16; rhabdomyolysis resolved, mild electrolyte imbalances, if corrected medic ally stable for inpatient psych placement 07/17: replete K and phosphate. repeat CBc BMP tomorrow. White count needs to be < 10 for inpt psych admission 07/18: cont to have mildly elevated white count, c/o loose stool. will check for C. def - start flagyl and cipro 07/19: White count normal today. change medications to Po. medically stable to go for inpt psych unit. 07/20; positive for C. def. patient not eating properly, refusing meds time to time. Psych now recommended outpt f/u. CM working on placement. Patient remains nonverbal, does not follow any commend and not giving any personal info. 07/21; K 2.0 today, cont to replete, follow BMP, patient remains nonverbal and not cooperative. refuses to eat and meds. cont d51/2NS. if condition doesnot improve will consider TF 07/22: Potassium level persistently remains low, magnesium 1.6 today. Will replete magnesium and potassium. Patient refusing meds and not eating at all per RN report. Totally noncooperative during the encounternot respond to any question. Keeps her eye closing and covering her face with her forearm. Will order for tube feeding and Dobbhoff tube. Continue to follow. We will also add Megace to boost appetite. 07/23: started on TF, follow BMP, change iv fluid to 1/2 NS. patient remains nonverbal 07/24; clinically unchanged, replete K, iv fluid and TF. reconsult psych as patient remains in catatonic phase 07/25: psych recommendation noted, continue tube feeding, continue to replete electrolytes as needed, follow BMP. I strongly believe her severe electrolytes derangement and encephalopathy related to her catatonia, poor oral intake other than any underlying medical conditions. There is no family contact in file, no home address available, patient appeared to be unfunded. administrative office manager working on placement. 07/26: psych recommendation noted, continue tube feeding, continue to replete electrolytes as needed, follow BMP. I strongly believe her severe electrolytes derangement and encephalopathy related to her catatonia, poor oral intake other than any underlying medical conditions. There is no family contact in file, no home address available, patient appeared to be unfunded. administrative office manager working on placement. 07/27; continue with tube feeding. There is no family contact in file, no home address available, patient appeared to be unfunded. Case management is following. 07/28; patient still on tube feeding, patient is noncommunicative. I believe her condition is related to her catatonia. Psych is following her. Currently her electrolytes are corrected. There is no family contact in file, no home address available, patient appeared to be unfunded. Case management is following. 07/29 patient is nonverbal, eyes open does not follow simple commands,, still having low-grade fever T-max 100 degrees,, lab results reviewed discussed with RN- still has loose stools, nurse case management notes reviewed, unable to contact family 07/30 no acute events overnight, diarrhea improved, stop IV fluids, disposition to be decided 07/31: parking officer presented to the bedside to attempt to fingerprint the patient to identify her. However his machine was not working 08/01:' Per nurse case management note [facility] [employer] has been contacted to help in identifying the patient. On officer is to report to bedside and was instructed to call the nurse case management upon arrival. 08/02/2020 still has diarrhea 08/03/2020 diarrhea improving. Today is the last day of vancomycin 08/04/2020 patient has no diarrhea 08/05: ball assembler RN reported patient had a seizure overnight, Ativan was ordered however was not administered because according to the dayshift RN he was reported that the patient "did not need the medication because she was not having a seizure at the moment". Patient remained hyponatremic and hypochloremic and after conversing with the nurse patient was not getting her prescribed dose FWF for hyponatremia which was corrected 08/06: Electrolyte imbalance discontinue, patient still catatonic 08/07: Electrolyte imbalances continue, to physician consent for PEG tube obtained and GI consulted 08/08: PEG scheduled for 08/09 08/09: s/p PEG placement with GI, hyperkalemic (potassium 5.2) s/p HI Kayexalate. 08/11; patient is on PEG tube feeding. C. difficile treated and resolved. Patient still in catatonic state. Pending guardianship. 08/12/2020 patient on PEG tube feeding. Guardianship pending. Pending placement. 08/13: no aucte events reported overnight, gaurdenship pending. 08/14/20: quality and futility of care is questionable, patient not following any commands, pupillary reflex noted, neurology and ethics consult placed 08/15: Neurology recommended LP, EEG, CT head and MRI brain with and without contrast which are all pending. 08/16: Physician consult obtained for LP which was completed today. Bilateral lower extremity x-rays noted no metal and a physician consent was obtained for contrast therefore MRI brain pending. EEG still pending. Patient again has hypochloremia and hyponatrema 08/17: status epilepticus noted on EEG, Neurology recommends transfer for contin ues EEG. 08/19: seizures subsided. No active seizures. Pending placement. 08/20: CXR shows possible PNA, initiated on cefepime and vancomycin 08/21. Discussed with neurologist. Patient needs to be transferred to a tertiary center for continuous EEG monitoring Transfer to [place] initiated. As per gurley, case will be sent to and earliest time for possible transfer will be tomorrow. In the meantime, patient will need intubation and sedation for status as per neurology. Critical care consult plac ed. Vent orders placed. Anesthesia paged. Patient will be going to the ICU. Transfer order placed. Discussed with anesthesia Dr Hawthorne 6:50 PM and told him why patient needs to be intubated immediately. Apparently, patient transfer orders still in progress and patient still on the floors during his evaluation at bedside. Patient cannot be intubated or while on the floor as per anesthesia MD. Patient is to go to ICU and then intubated. 08/22. Overnight events noted. Patient intubated this AM and started on versed. Discussed with [place], case is still being reviewed. Called [facility] and was told facility do not have continuous EEG monitoring. She remains on multiple seizure medications. Continue BP medications. Neurology is following closely. - Patient Problems (1) Status epilepticus Current Visit: Yes Status: Acute Plan to address problem: RN reported seizure activity on on 08/05; Ativan was ordered however was not administered because according to the dayshift RN he was reported that the patient "did not need the medication because she was not having a seizure at the moment". After reviewing nursing notes it is noted that she had reported seizure activ ity by RN on 08/12 and was given Ativan. Hospitalist was informed No seizure activity reported since Neurology consulted EEG no no status epilepticus Pt is on depakote 1000 mg bid; Keppra 1500 mg bid; vimpat 200 mg iv q12; and now initiated on Fosphentoin (load and maintenance) despite drug-drug interaction on 08/21 per neurology Per neurology: Patient will require transfer to a facility w/ cEEG monitoring for higher level of care as EEG here is intermittently available and intermittently read at present; increase depakote to 1000 mg bid (bolus of 500 mg via peg); increase Keppra to 1500 mg bid; initiate vimpat 200 mg iv q12; s/p Ativan 1 mg IV x 1 dose given; pending MRI Brain w/ wo contrast. Recommend q1 hour neurochecks. 08/19 it was noted that patient's seizure activity subsided therefore was not transferred to tertiary care 08/21 noted to have a focal seizure when neurology was examining the patient, given Ativan x1 and started on a third antiepileptic. Transfer to [place] reinitiated today. Discussed [facility] neurology - patient will need intubation and sedation. Discussed with anesthesia and public relations manager. Transfer order placed. Vent bundle ordered. -08/22. Patient intubated this AM. Had another episode of seizure early AM as per RN prior to intubation. Neurology currently following. Patient is on Depakote, Keppra, fosphenytoin and Vimpat. (2) Schizoaffective disorder Current Visit: Yes Status: Chronic Plan to address problem: Patient admitted catatonic state and is nonverbal and not following commands Psychiatric consult completed; does not recommend inpatient at this time Haldol as needed, Depakote, Zyprexa Supportive care (3) Hyponatremia Current Visit: Yes Status: Resolved Plan to address problem: Admit sodium 142 07/31 134, slight hyponatremia at this time no intervention needed, 08/01 Na 136 however she has remained hyponatremic Hydration with free water flush; 50ml q6 hours while hyponatremic-> informed RN on 08/06 08/07 sodium 136 08/09 sodium 135 Trend BMP 08/10 sodium 141 08/15 sodium 134; informed RN FWF are ordered to be 50 mL every 6 while hyponatremic 08/16 sodium 131, nutrition notes reviewed and FWF seems to be changed 100 mL q4 hours 08/17 sodium 134 08/20 hyponatremia resolved (4) Metabolic encephalopathy Current Visit: Yes Status: Acute Plan to address problem: Multifactorial , schizoaffective disorder and withdrawal seizures 07/11 CT head Normal nonenhanced CT scan of the brain Patient came from [place], psych evaluation noted Psych recommends outpt f/u 08/14 neurology consult: Recommends obtaining EEG, LP, CTA head, MRI brain with and without contrast 08/15 CT head shows no acute abnormalities and no changes since 07/11/202008/16: LP under fluoroscopy completed. CSF analysis shows no evidence of encephalitis 08/16 MRI brain with/without contrast pending: Shows no acute abnormalities Supportive care -Now on multiple antiseizure medications. Intubated and sedated. Plan for tra nsfer to [address] [place] [address] initiated (5) Hypochloremia Current Visit: Yes Status: Resolved Plan to address problem: 07/31 chloride 97, 08/02 chloride 97.9, 08/06 chloride 97.0, 08/07 chloride 97.0, 08/09 chloride 98, 08/16 Cl 91.6, 08/20 Cl 94, 08/21 resolved Patient on tube feedings with FWF We will continue to monitor Trend BMP (6) Discharge planning issues Current Visit: Yes Status: Acute Plan to address problem: Patient's identity is not confirmed [facility] has been contacted to aid in identification however unsuccessful [facility] have been contacted Inpatient records requested from [facility] again on 08/02 Risk-management made aware of patient again on 08/02 Patient identification confirmed with [facility] Attempted to contact children, CM has an email address and an email was sent over the weekend however there is been no reply 08/07: 2 physician consent for PEG tube obtained and GI consulted for PEG tube placement 08/09: PEG tube placed, resume tube feeds within 4 hours [facility] in the process of assuming guardianship over the patient for placement 08/14 ethics consulted 08/17 Dr. Nails requested a transfer to another facility for continuous EEG as the patient may be in status epilepticus. Patient seizures reportedly improved and transfer was initiated 08/21 transfer to [place] initiated today as patient still having seizure episodes. (7) Leukocytosis Current Visit: Yes Status: Acute Plan to address problem: -Patient started on broad-spectrum antibiotics on 08/21 -Chest x-ray shows bilateral infiltrates -Continue to monitor vital signs (7) DVT prophylaxis Current Visit: Yes Status: Acute Plan to address problem: SCDs to bilateral lower extremities while in bed Heparin subcu History Interval history: See assessment and plan Hospitalist Physical - Constitutional Vitals: Temp Pulse Resp BP Pulse Ox 97.6 F 107 H 20 96/59 100 08/22/20 07:47 08/22/20 12:00 08/22/20 12:00 08/22/20 12:00 08/22/20 12:00 General appearance: Present: no acute distress - Respiratory Respiratory: bilateral: CTA - Cardiovascular Heart Sounds: Present: S1 & S2 - Extremities Extremities: No edema - Abdominal General gastrointestinal: soft, non-tender, non-distended, normal bowel sounds, other (PEG tube in place) - Psychiatric Psychiatric: other (lethargic) - Neurologic Neurologic: other (not responsive) HEART Score - HEART Score Risk factors: 1-2 risk factors Troponin: Troponin T < 0.010 ng/mL (0.00-0.029) 07/11/20 21:17 Troponin: < normal limit - Critical Actions Critical Actions: 0-3 pts:0.9-1.7%risk of adverse cardiac event.Candidate for discharge Results - Labs CBC & Chem 7: 08/23/20 09:39 08/23/20 09:39 Labs: Laboratory Last Values WBC 20.8 K/mm3 (4.5-11.0) H 08/22/20 05:41 RBC 3.51 M/mm3 (3.65-5.03) L 08/22/20 05:41 Hgb 11.5 gm/dl (10.1-14.3) 08/22/20 05:41 Hct 34.1 % (30.3-42.9) 08/22/20 05:41 MCV 97 fl (79-97) 08/22/20 05:41 MCH 33 pg (28-32) H 08/22/20 05:41 MCHC 34 % (30-34) 08/22/20 05:41 RDW 14.8 % (13.2-15.2) 08/22/20 05:41 Plt Count 299 K/mm3 (140-440) 08/22/20 05:41 Lymph % (Auto) 21.6 % (13.4-35.0) 07/26/20 07:30 [place] % (Auto) 6.2 % (0.0-7.3) 07/26/20 07:30 Eos % (Auto) 0.5 % (0.0-4.3) 07/26/20 07:30 Baso % (Auto) 0.3 % (0.0-1.8) 07/26/20 07:30 Lymph # (Auto) 2.0 K/mm3 (1.2-5.4) 07/26/20 07:30 [place] # (Auto) 0.6 K/mm3 (0.0-0.8) 07/26/20 07:30 Eos # (Auto) 0.1 K/mm3 (0.0-0.4) 07/26/20 07:30 Baso # (Auto) 0.0 K/mm3 (0.0-0.1) 07/26/20 07:30 Seg Neutrophils % 71.4 % (40.0-70.0) H 07/26/20 07:30 Seg Neutrophils # 6.8 K/mm3 (1.8-7.7) 07/26/20 07:30 PT 12.5 Sec. (12.2-14.9) 08/15/20 15:26 INR 0.92 (0.87-1.13) 08/15/20 15:26 APTT 20.4 Sec. (24.2-36.6) L 08/15/20 15:26 ABG pH 7.518 (7.320-7.450) H 08/22/20 11:18 POC ABG pCO2 32.9 mmHg (32.0-48.0) 08/22/20 11:18 ABG pCO2 33.4 mm Hg 08/21/20 18:15 POC ABG pO2 143.5 mmHg (83-108) H 08/22/20 11:18 ABG pO2 87.9 mm Hg (80.0-90.0) 08/21/20 18:15 POC ABG HCO3 26.1 08/22/20 11:18 ABG HCO3 26.2 mmol/L (20.0-26.0) H 08/21/20 18:15 ABG O2 Saturation 97.4 % (95.0-99.0) 08/21/20 18:15 ABG O2 Content 14.2 (0.0-44) 08/21/20 18:15 POC ABG Base Excess 3.6 08/22/20 11:18 ABG Base Excess 3.4 mmol/L (-2.0-3.0) H 08/21/20 18:15 ABG Hemoglobin 12.1 (12.0-17.5) 08/22/20 11:18 ABG Oxyhemoglobin 98.9 (94-98) H 08/22/20 11:18 ABG Carboxyhemoglobin 1.1 % (0.0-5.0) 08/21/20 18:15 ABG Methemoglobin 0 (0.0-1.5) 08/22/20 11:18 ABG Sodium 135.9 mmol/L (136.0-145.0) L 08/22/20 11:18 ABG Potassium 3.2 mmol/L (3.40-4.50) L 08/22/20 11:18 ABG Chloride 104.0 mmol/L (98-107) 08/22/20 11:18 ABG Glucose 123 mg/dL (65-95) H 08/22/20 11:18 Oxyhemoglobin 95.8 % (95.0-99.0) 08/21/20 18:15 Carboxyhemoglobin 0.4 (0.5-1.5) L 08/22/20 11:18 FiO2 60 08/22/20 11:18 Sodium 140 mmol/L (137-145) 08/21/20 05:41 Potassium 4.1 mmol/L (3.6-5.0) D 08/21/20 05:41 Chloride 100.3 mmol/L (98-107) 08/21/20 05:41 Carbon Dioxide 26 mmol/L (22-30) 08/21/20 05:41 Anion Gap 18 mmol/L 08/21/20 05:41 BUN 23 mg/dL (7-17) H 08/21/20 05:41 Creatinine 0.2 mg/dL (0.6-1.2) L D 08/21/20 05:41 Estimated GFR > 60 ml/min 08/21/20 05:41 BUN/Creatinine Ratio 115 % 08/21/20 05:41 Glucose 102 mg/dL (65-100) H 08/21/20 05:41 POC Glucose 87 mg/dL (70-105) 08/22/20 05:09 Lactic Acid 1.50 mmol/L (0.7-2.0) 07/12/20 00:04 Phosphorus 3.10 mg/dL (2.5-4.5) 07/24/20 06:00 Magnesium 2.10 mg/dL (1.7-2.3) 07/24/20 06:00 Calcium 8.2 mg/dL (8.4-10.2) L 08/21/20 05:41 Direct Bilirubin < 0.2 mg/dL (0-0.2) 07/13/20 09:33 Ammonia 28.0 umol/L (25-60) 07/11/20 21:17 Total Bilirubin 0.40 mg/dL (0.1-1.2) 08/06/20 08:59 Total Creatine Kinase 102 units/L (30-135) 07/17/20 05:21 CK-MB (CK-2) 9.2 ng/mL (0.0-4.0) H 07/12/20 15:13 AST 63 units/L (5-40) H 08/06/20 08:59 ALT 41 units/L (7-56) 08/06/20 08:59 CK-MB (CK-2) Rel Index 0.4 (0-4) 07/12/20 15:13 Alkaline Phosphatase 59 units/L (35-129) 08/06/20 08:59 Troponin T < 0.010 ng/mL (0.00-0.029) 07/11/20 21:17 Total Protein 6.6 g/dL (6.3-8.2) 08/06/20 08:59 Albumin 3.8 g/dL (3.9-5) L 08/06/20 08:59 Albumin/Globulin Ratio 1.4 % 08/06/20 08:59 Arterial Blood Glucose 123 mg/dL (65-95) H 08/22/20 11:18 Arterial Blood Ionized Calcium 4.5 mg/dL (4.6-5.3) L 08/22/20 11:18 Urine Color Yellow (Yellow) 07/11/20 Unknown Urine Turbidity Clear (Clear) 07/11/20 Unknown Urine pH 6.0 (5.0-7.0) 07/11/20 Unknown Ur Specific [place] 1.023 (1.003-1.030) 07/11/20 Unknown Urine Protein 30 mg/dl mg/dL (Negative) 07/11/20 Unknown Urine Glucose (UA) Neg mg/dL (Negative) 07/11/20 Unknown Urine Ketones Tr mg/dL (Negative) 07/11/20 Unknown Urine Blood Neg (Negative) 07/11/20 Unknown Urine Nitrite Neg (Negative) 07/11/20 Unknown Urine Bilirubin Neg (Negative) 07/11/20 Unknown Urine Urobilinogen 2.0 mg/dL (<2.0) 07/11/20 Unknown Ur Leukocyte Esterase Neg (Negative) 07/11/20 Unknown Urine WBC (Auto) 2.0 /HPF (0.0-6.0) 07/11/20 Unknown Urine RBC (Auto) 3.0 /HPF (0.0-6.0) 07/11/20 Unknown U Epithel Cells (Auto) 3.0 /HPF (0-13.0) 07/11/20 Unknown Urine Mucus 3+ /HPF 07/11/20 Unknown CSF Appearance Clear 08/16/20 14:18 CSF Color Colorless 08/16/20 14:18 CSF WBC 6 /mm3 (1-10) 08/16/20 14:18 CSF RBC 4 /mm3 (0-0) 08/16/20 14:18 CSF Seg Neutrophils 0 % (0-6) 08/16/20 14:18 CSF Lymphocytes % 90.0 % (40-80) 08/16/20 14:18 CSF Reactive Lymphs 0 % 08/16/20 14:18 CSF Monocytes % 10.0 % (15-45) 08/16/20 14:18 CSF Eosinophils % 0 % 08/16/20 14:18 CSF Basophils 0 % 08/16/20 14:18 CSF Pathologist Review C 08/16/20 14:18 CSF Glucose 60 mg/dL 08/16/20 14:18 CSF Total Protein 94 mg/dL 08/16/20 14:18 CSF VDRL Nonreactive (Nonreactive) 08/16/20 14:18 Salicylates < 0.3 mg/dL (2.8-20.0) L 07/11/20 21:17 Urine Opiates Screen Presumptive negative 07/11/20 Unknown Urine Methadone Screen Presumptive negative 07/11/20 Unknown Acetaminophen 5.0 ug/mL (10.0-30.0) L 07/11/20 21:17 Ur Barbiturates Screen Presumptive negative 07/11/20 Unknown Ur Phencyclidine Scrn Presumptive negative 07/11/20 Unknown Phenytoin 8.9 ug/mL (10.0-20.0) L 08/16/20 11:56 Ur Amphetamines Screen Presumptive negative 07/11/20 Unknown Valproic Acid 98.6 ug/mL (50-100) 08/20/20 15:06 U Benzodiazepines Scrn Presumptive negative 07/11/20 Unknown Urine Cocaine Screen Presumptive negative 07/11/20 Unknown U Marijuana (THC) Screen Presumptive negative 07/11/20 Unknown Drugs of Abuse Note Disclamer 07/11/20 Unknown C. difficile Tox (PCR) Positive (Negative) 07/19/20 18:51 Enterovirus (PCR) Cmmt 08/16/20 14:18 Ledesma/IV: Voiding Method External Female Catheter IV Catheter Type [Right INT / Saline Lock Antecubital] IV Catheter Type [Left Forearm INT / Saline Lock ] IV Catheter Type [Right Hand] INT / Saline Lock IV Catheter Type [Right INT / Saline Lock Forearm] IV Catheter Type [Left Hand] INT / Saline Lock Active Medications - Current Medications Current Medications: Generic Name Dose Route Start Last Admin Trade Name Freq PRN Reason Stop Dose Admin Acetaminophen 650 mg 07/12/20 01:05 07/27/20 01:57 Tylenol HI 650 mg Q4H PRN Administration Fever >101 Lipase/Protease/Amylase 1 each 07/22/20 07:44 08/14/20 10:[address] 10,500 Unit FEEDTUBE 1 each PRN PRN Administration For Clogged Feeding Tube Haloperidol Lactate 5 mg 07/18/20 13:15 07/21/20 22:06 Haldol IM 5 mg Q6H PRN Administration Agitation Heparin Sodium (Porcine) 5,000 unit 07/12/20 10:00 08/22/20 09:24 Heparin SUB-Q 5,000 unit Q8H KEITH Administration Hydrophilic Ointment 1 applic 08/21/20 18:21 Vaseline Lip Therapy TP Q2HR PRN Dry Lips Cefepime HCl 2 gm in 100 mls @ 200 mls/hr 08/20/20 06:00 08/22/20 05:39 Cefepime/Ns 2 Gm/100 Ml IV 08/26/20 23:59 200 mls/hr Q8HR KEITH Administration Vancomycin HCl 1 gm in 250 mls @ 166.667 mls/hr 08/20/20 22:00 08/22/20 09:23 Vancomycin/Ns 1 Gm/250 Ml IV 08/26/20 23:59 166.667 mls/hr Q18H KEITH Administration Propofol 1,000 mg in 100 mls @ 1.524 mls/hr 08/21/20 20:00 Diprivan 10 Mg/Ml IV TITR KEITH Protocol 5 MCG/KG/MIN Dopamine HCl/Dextrose 800 mg in 250 mls @ 1.905 mls/hr 08/22/20 05:00 08/22/20 08:41 Intropin Drip 800 Mg/D5w 250 Ml IV 4 mcg/kg/min TITR KEITH 3.81 mls/hr Titration Protocol 2 MCG/KG/MIN Phenytoin 100 mg/ Sodium 102 mls @ 408 mls/hr 08/22/20 10:00 08/22/20 10:44 Chloride IV 408 mls/hr Q8HR KEITH Administration Lorazepam 100 mg/ Sodium 100 mls @ 1 mls/hr 08/22/20 12:00 08/22/20 11:51 Chloride/ Miscellaneous IV 1 mg/hr Information TITR KEITH 1 mls/hr Administration Protocol 1 MG/HR Insulin Human Regular 0 unit 07/23/20 09:00 08/22/20 05:35 Humulin R SUB-Q Not Given Q6HR [facility] Protocol Lacosamide 200 mg 08/21/20 22:00 08/22/20 09:24 Vimpat PO 200 mg Q12HR KEITH Administration Levetiracetam 1,500 mg 08/21/20 22:00 08/22/20 09:24 Keppra PO 1,500 mg BID KEITH Administration Lorazepam 2 mg 08/06/20 05:05 08/22/20 08:05 Ativan IV 2 mg Q4H PRN Administration Agitation Lorazepam 2 mg 08/22/20 11:10 08/22/20 11:18 Ativan IV 2 mg Q10MIN PRN Administration Agitation Megestrol Acetate 400 mg 07/22/20 10:00 08/22/20 09:24 Megestrol PO 400 mg QDAY KEITH Administration Multi-Ingred Cream/Lotion/Oil/Oint 1 applic 08/21/20 18:21 Artificial Tears Ophth Oint OU Q4HR PRN Dry Eye(s) Multi-Ingred Cream/Lotion/Oil/Oint 1 applic 08/22/20 11:10 Artificial Tears Ophth Oint OU Q4HR PRN Dry Eye(s) Olanzapine 2.5 mg 07/25/20 22:00 08/21/20 22:42 Zyprexa PO 2.5 mg QHS KEITH Administration Ondansetron HCl 4 mg 07/12/20 01:06 Zofran IV Q8H PRN Nausea And Vomiting Simple Syrup 15 ml 07/22/20 07:44 Simple Syrup FEEDTUBE PRN PRN Hypoglycemia Simple Syrup 30 ml 07/22/20 07:44 Simple Syrup FEEDTUBE PRN PRN Hypoglycemia Sodium Bicarbonate 325 mg 07/22/20 07:44 Sodium Bicarbonate FEEDTUBE PRN PRN For Clogged Feeding Tube Valproic Acid 1,000 mg 08/18/20 22:00 08/22/20 09:24 Depakene Liq FEEDTUBE 1,000 mg Q12HR KEITH Administration Nutrition/Malnutrition Assess - Dietary Evaluation Nutrition/Malnutrition Findings: Nutrition Notes Start: 07/12/20 11:40 Freq: Status: Active Protocol: Document 08/15/20 13:06 SHIRLEY (Rec: 08/15/20 13:17 SHIRLEY [id number]) Co-Sign 08/15/20 13:06 LM Nutrition Notes Initial or Follow up Reassessment Other Pertinent Diagnosis C. diff (+), AMS, Rhabdomyolysis, dehydration, Hx of stroke Current Diet Osmolite at 35ml/hr Labs/Tests Reviewed Pertinent Medications Reviewed Height 5 ft Weight 52 kg [place] Body Weight (kg) 45.45 BMI 22.4 Subjective/Other Information F/u stable TF. Per nursing notes, pt's TF is stable at 35ml/hr and still well tolerated. Percent of energy/protein needs met: 100%/90% Burn Absent Trauma Absent GI Symptoms None Current % PO Negligible Minimum of two criteria No Energy Intake (severe) < or equal to 50% Estimated Energy Requirement > or equal to 5 days #1 Nutrition Diagnosis Inadequate oral intake Diagnosis Progress(for reassessment Continues documentation) Is patient on ventilator? No Is Patient Ambulatory and/or Out of Bed No REE-([facility]-confined to bed) 1213.032 Calculation Used for Recommendations [facility] Additional Notes Protein Needs 59-70g (1-1.2g/ kg) Fluid Needs: 1ml/kcal Nutrition Intervention Change Diet Order: Continue Nutrition Support: Osmolite 1.5 at 35ml/hr. Flush 60ml q4hr for hyponatremia Flush 100ml q4hr once hyponatremia resolved. Kcal 1,260 Protein (gm) 53 Fluid (mL) 640 Goal #1 Patient meets at least 75% of energy and protein needs via TF Anticipated Discharge Needs: Recommend Jevity 1.2 bolus 5 cans/day: Breakfast 2 cans ( 474ml), Lunch 2 cans (474ml), Dinner 1 can (237ml) with flush 100ml before and after bolus. Follow-Up By: 08/22/20 Additional Comments F/u stable TF and discharge plan
--- NOTE | 2020-08-22 12:38 | Progress Note ---
Assessment and Plan 60 yo female with schizoaffective d/o w/ noted akinetic state. 1. Status Epilepticus - noted on 2 EEGs so far; EEG ordered for today until transfer occurs; patient requires transfer to a facility w/ cEEG monitoring for higher level of care as EEG here is intermittently available and intermittently read at present; continue depakote 1000 mg bid; continue Keppra at 1500 mg bid; continue vimpat 200 mg iv q12; agree w/ Versed gtt and titrate to burst suppression w/ at least 1 burst every 10 seconds; normal MRI Brain w/ wo contrast; started on a Versed gtt; may even need phenobarbital coma initiated; continue dilantin 100 mg iv/po q8. 2. Therapeutic Drug Monitoring - last depakote level is 98; stat levels from this AM for dilantin/valproic acid levels are pending. 3. Stroke - unremarkable MRI [place] w/ wo contrast if no contraindications (s/p whole body Xray for metal and if clear, get MRI); further testing based on imaging findings. 4. Encephalitis - no evidence noted per initial CSF findings. 5. 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 6. Schizoaffective d/o - per psychiatry. Woody Nails MD Neurology Subjective Date of service: 08/22/20 Principal diagnosis: C diff Interval history: Patient was intubated this morning. Noted with twitching per RN this morning and was given Ativan. Patient is to be initiated on a Versed gtt is the plan per RN. Objective - Exam Narrative Exam: obtunded, CN reflexes - sluggish pupils, corneals intact, oculocephalic intact, no gaze deviaiton, cough reflex intact; Motor - no twitching but involuntary movement of the leg with adduction simultaneously of bilateral legs is noted that tend to occur intermittently in a non-rhythmic pattern. No twitching of extremities or clonic activity noted. - Vital Sign Vital Signs - 12hr 08/22/20 08/22/20 08/22/20 00:46 01:00 01:16 Temperature Pulse Rate 83 87 85 Pulse Rate [ From Monitor] Respiratory 16 17 17 Rate Blood Pressure 85/52 84/51 99/63 O2 Sat by Pulse 100 100 100 Oximetry 08/22/20 08/22/20 08/22/20 01:30 01:46 02:00 Temperature Pulse Rate 81 88 88 Pulse Rate [ From Monitor] Respiratory 18 15 17 Rate Blood Pressure 88/54 88/54 77/50 O2 Sat by Pulse 100 99 99 Oximetry 08/22/20 08/22/20 08/22/20 02:16 02:30 02:46 Temperature Pulse Rate 85 82 80 Pulse Rate [ From Monitor] Respiratory 17 17 18 Rate Blood Pressure 77/51 77/50 89/54 O2 Sat by Pulse 95 97 99 Oximetry 08/22/20 08/22/20 08/22/20 03:00 03:16 03:26 Temperature 98 F Pulse Rate 80 86 Pulse Rate [ From Monitor] Respiratory 19 18 Rate Blood Pressure 76/45 112/56 O2 Sat by Pulse 98 100 Oximetry 08/22/20 08/22/20 08/22/20 03:30 03:46 03:48 Temperature Pulse Rate 76 77 79 Pulse Rate [ From Monitor] Respiratory 18 19 Rate Blood Pressure 88/48 88/48 O2 Sat by Pulse 100 100 Oximetry 08/22/20 08/22/20 08/22/20 03:50 04:00 04:16 Temperature Pulse Rate 81 75 Pulse Rate [ From Monitor] Respiratory 16 19 Rate Blood Pressure 76/51 76/51 O2 Sat by Pulse 100 100 100 Oximetry 08/22/20 08/22/20 08/22/20 04:30 04:45 05:00 Temperature Pulse Rate 82 78 76 Pulse Rate [ From Monitor] Respiratory 18 18 16 Rate Blood Pressure 88/48 82/50 84/47 O2 Sat by Pulse 100 100 97 Oximetry 08/22/20 08/22/20 08/22/20 05:15 05:30 05:45 Temperature Pulse Rate 80 78 90 Pulse Rate [ From Monitor] Respiratory 16 15 24 Rate Blood Pressure 81/47 84/50 131/77 O2 Sat by Pulse 100 99 98 Oximetry 08/22/20 08/22/20 08/22/20 06:00 06:15 06:30 Temperature Pulse Rate 84 88 82 Pulse Rate [ From Monitor] Respiratory 16 21 15 Rate Blood Pressure 92/53 96/57 88/52 O2 Sat by Pulse 96 97 96 Oximetry 08/22/20 08/22/20 08/22/20 06:45 07:00 07:15 Temperature Pulse Rate 81 82 82 Pulse Rate [ From Monitor] Respiratory 14 16 15 Rate Blood Pressure 86/53 82/51 93/53 O2 Sat by Pulse 98 99 99 Oximetry 08/22/20 08/22/20 08/22/20 07:30 07:45 07:47 Temperature 97.6 F Pulse Rate 81 83 Pulse Rate [ From Monitor] Respiratory 17 15 Rate Blood Pressure 94/54 91/53 O2 Sat by Pulse 98 99 Oximetry 08/22/20 08/22/20 08/22/20 08:00 08:15 08:30 Temperature Pulse Rate 84 82 87 Pulse Rate [ 84 From Monitor] Respiratory 16 15 16 Rate Blood Pressure 89/53 90/51 83/49 O2 Sat by Pulse 100 99 100 Oximetry 08/22/20 08/22/20 08/22/20 08:42 08:45 09:00 Temperature Pulse Rate 90 85 Pulse Rate [ From Monitor] Respiratory 17 17 Rate Blood Pressure 86/53 89/51 O2 Sat by Pulse 100 100 100 Oximetry 08/22/20 08/22/20 08/22/20 09:12 09:15 09:30 Temperature Pulse Rate 86 82 Pulse Rate [ From Monitor] Respiratory 20 18 Rate Blood Pressure 96/53 90/52 O2 Sat by Pulse 99 100 100 Oximetry 08/22/20 08/22/20 08/22/20 09:45 10:00 10:15 Temperature Pulse Rate 81 80 83 Pulse Rate [ From Monitor] Respiratory 22 16 16 Rate Blood Pressure 106/58 95/54 106/58 O2 Sat by Pulse 100 100 100 Oximetry 08/22/20 08/22/20 08/22/20 10:30 10:45 11:00 Temperature Pulse Rate 90 94 H 102 H Pulse Rate [ From Monitor] Respiratory 14 14 16 Rate Blood Pressure 113/64 116/85 119/74 O2 Sat by Pulse 100 95 100 Oximetry 08/22/20 08/22/20 08/22/20 11:02 11:15 11:30 Temperature Pulse Rate 100 H 95 H 101 H Pulse Rate [ From Monitor] Respiratory 16 19 Rate Blood Pressure 119/71 119/71 115/71 O2 Sat by Pulse 100 100 100 Oximetry 08/22/20 08/22/20 08/22/20 11:33 11:45 12:00 Temperature Pulse Rate 101 H 105 H 107 H Pulse Rate [ From Monitor] Respiratory 20 20 Rate Blood Pressure 115/71 101/63 96/59 O2 Sat by Pulse 100 99 100 Oximetry - Laboratory Findings CBC and BMP: 08/22/20 05:41 08/21/20 05:41 Abnormal Lab Findings: Abnormal Labs 07/11/20 07/11/20 07/11/20 21:17 21:17 21:17 WBC 11.7 H Hgb 14.4 H RBC Hct MCH 35 H MCHC 36 H Plt Count [place] % (Auto) [place] # Seg Neutrophils % 72.1 H Seg Neutrophils # 8.5 H PT INR APTT ABG pH POC ABG pCO2 POC ABG pO2 ABG pO2 ABG HCO3 ABG Base Excess ABG Hemoglobin ABG Oxyhemoglobin ABG Sodium ABG Potassium ABG Glucose Oxyhemoglobin Carboxyhemoglobin Sodium Potassium 3.5 L Chloride Carbon Dioxide BUN 20 H Creatinine 0.5 L Glucose 122 H POC Glucose Calcium Phosphorus Magnesium AST 86 H ALT 68 H Total Creatine Kinase 1998 H CK-MB (CK-2) Total Protein Albumin Arterial Blood Glucose Arterial Blood Ionized Calcium Salicylates < 0.3 L Acetaminophen Valproic Acid Phenytoin 07/11/20 07/12/20 07/12/20 21:17 06:26 15:13 WBC Hgb RBC Hct MCH MCHC Plt Count [place] % (Auto) [place] # Seg Neutrophils % Seg Neutrophils # PT INR APTT ABG pH POC ABG pCO2 POC ABG pO2 ABG pO2 ABG HCO3 ABG Base Excess ABG Hemoglobin ABG Oxyhemoglobin ABG Sodium ABG Potassium ABG Glucose Oxyhemoglobin Carboxyhemoglobin Sodium Potassium Chloride Carbon Dioxide BUN Creatinine Glucose POC Glucose Calcium Phosphorus Magnesium AST ALT Total Creatine Kinase 1888 H 1852 H CK-MB (CK-2) 14.8 H 9.2 H Total Protein Albumin Arterial Blood Glucose Arterial Blood Ionized Calcium Salicylates Acetaminophen 5.0 L Valproic Acid Phenytoin 07/13/20 07/13/20 07/14/20 09:33 09:33 01:52 WBC Hgb RBC Hct MCH MCHC Plt Count [place] % (Auto) [place] # Seg Neutrophils % Seg Neutrophils # PT INR APTT ABG pH POC ABG pCO2 POC ABG pO2 ABG pO2 ABG HCO3 ABG Base Excess ABG Hemoglobin ABG Oxyhemoglobin ABG Sodium ABG Potassium ABG Glucose Oxyhemoglobin Carboxyhemoglobin Sodium Potassium 2.8 L* 3.2 L Chloride 107.9 H Carbon Dioxide BUN Creatinine 0.3 L Glucose POC Glucose Calcium 7.9 L D Phosphorus Magnesium AST 83 H ALT Total Creatine Kinase 1678 H CK-MB (CK-2) Total Protein 5.3 L D Albumin 3.0 L Arterial Blood Glucose Arterial Blood Ionized Calcium Salicylates Acetaminophen Valproic Acid Phenytoin 07/14/20 07/15/20 07/16/20 15:48 05:55 08:26 WBC Hgb RBC Hct MCH MCHC Plt Count [place] % (Auto) [place] # Seg Neutrophils % Seg Neutrophils # PT INR APTT ABG pH POC ABG pCO2 POC ABG pO2 ABG pO2 ABG HCO3 ABG Base Excess ABG Hemoglobin ABG Oxyhemoglobin ABG Sodium ABG Potassium ABG Glucose Oxyhemoglobin Carboxyhemoglobin Sodium Potassium 2.7 L* 3.1 L Chloride 108.0 H Carbon Dioxide 16 L D 14 L BUN 4 L Creatinine 0.3 L 0.3 L Glucose POC Glucose Calcium 8.3 L Phosphorus 2.40 L Magnesium AST ALT Total Creatine Kinase 828 H 425 H 188 H CK-MB (CK-2) Total Protein Albumin Arterial Blood Glucose Arterial Blood Ionized Calcium Salicylates Acetaminophen Valproic Acid Phenytoin 07/17/20 07/17/20 07/18/20 05:21 05:21 05:53 WBC 12.1 H 11.6 H Hgb RBC Hct MCH MCHC Plt Count [place] % (Auto) 7.9 H [place] # 0.9 H Seg Neutrophils % 70.7 H Seg Neutrophils # 8.2 H PT INR APTT ABG pH POC ABG pCO2 POC ABG pO2 ABG pO2 ABG HCO3 ABG Base Excess ABG Hemoglobin ABG Oxyhemoglobin ABG Sodium ABG Potassium ABG Glucose Oxyhemoglobin Carboxyhemoglobin Sodium Potassium 3.2 L Chloride Carbon Dioxide BUN Creatinine Glucose POC Glucose Calcium Phosphorus 2.40 L Magnesium AST ALT Total Creatine Kinase CK-MB (CK-2) Total Protein Albumin Arterial Blood Glucose Arterial Blood Ionized Calcium Salicylates Acetaminophen Valproic Acid Phenytoin 07/18/20 07/19/20 07/19/20 05:53 08:12 08:12 WBC Hgb RBC Hct MCH 33 H MCHC 35 H Plt Count [place] % (Auto) [place] # Seg Neutrophils % Seg Neutrophils # PT INR APTT ABG pH POC ABG pCO2 POC ABG pO2 ABG pO2 ABG HCO3 ABG Base Excess ABG Hemoglobin ABG Oxyhemoglobin ABG Sodium ABG Potassium ABG Glucose Oxyhemoglobin Carboxyhemoglobin Sodium Potassium Chloride 108.3 H Carbon Dioxide 17 L BUN 5 L Creatinine 0.3 L Glucose POC Glucose Calcium 8.3 L Phosphorus 2.30 L Magnesium AST ALT Total Creatine Kinase CK-MB (CK-2) Total Protein Albumin Arterial Blood Glucose Arterial Blood Ionized Calcium Salicylates Acetaminophen Valproic Acid 7.7 L Phenytoin 07/21/20 07/22/20 07/23/20 06:35 06:59 07:27 WBC Hgb RBC Hct MCH MCHC Plt Count [place] % (Auto) [place] # Seg Neutrophils % Seg Neutrophils # PT INR APTT ABG pH POC ABG pCO2 POC ABG pO2 ABG pO2 ABG HCO3 ABG Base Excess ABG Hemoglobin ABG Oxyhemoglobin ABG Sodium ABG Potassium ABG Glucose Oxyhemoglobin Carboxyhemoglobin Sodium 146 H Potassium 2.0 L* D 2.2 L* Chloride Carbon Dioxide 32 H BUN 2 L < 1 L < 1 L Creatinine 0.2 L 0.2 L 0.4 L D Glucose 139 H 130 H 574 H* POC Glucose Calcium 8.0 L 7.0 L D Phosphorus Magnesium 1.60 L AST ALT Total Creatine Kinase CK-MB (CK-2) Total Protein Albumin Arterial Blood Glucose Arterial Blood Ionized Calcium Salicylates Acetaminophen Valproic Acid Phenytoin 07/23/20 07/23/20 07/23/20 10:58 11:16 16:50 WBC Hgb RBC Hct MCH MCHC Plt Count [place] % (Auto) [place] # Seg Neutrophils % Seg Neutrophils # PT INR APTT ABG pH POC ABG pCO2 POC ABG pO2 ABG pO2 ABG HCO3 ABG Base Excess ABG Hemoglobin ABG Oxyhemoglobin ABG Sodium ABG Potassium ABG Glucose Oxyhemoglobin Carboxyhemoglobin Sodium 146 H Potassium 3.5 L D Chloride Carbon Dioxide 31 H BUN 2 L Creatinine 0.2 L Glucose 112 H POC Glucose 111 H 137 H Calcium 8.3 L D Phosphorus Magnesium AST ALT Total Creatine Kinase CK-MB (CK-2) Total Protein Albumin Arterial Blood Glucose Arterial Blood Ionized Calcium Salicylates Acetaminophen Valproic Acid Phenytoin 07/23/20 07/24/20 07/24/20 22:33 06:00 08:47 WBC Hgb RBC Hct MCH MCHC Plt Count [place] % (Auto) [place] # Seg Neutrophils % Seg Neutrophils # PT INR APTT ABG pH POC ABG pCO2 POC ABG pO2 ABG pO2 ABG HCO3 ABG Base Excess ABG Hemoglobin ABG Oxyhemoglobin ABG Sodium ABG Potassium ABG Glucose Oxyhemoglobin Carboxyhemoglobin Sodium 146 H Potassium 3.0 L Chloride Carbon Dioxide 31 H BUN Creatinine 0.3 L Glucose 140 H POC Glucose 153 H 118 H Calcium Phosphorus Magnesium AST ALT Total Creatine Kinase CK-MB (CK-2) Total Protein Albumin Arterial Blood Glucose Arterial Blood Ionized Calcium Salicylates Acetaminophen Valproic Acid Phenytoin 07/24/20 07/24/20 07/25/20 12:04 17:34 05:58 WBC Hgb RBC Hct MCH MCHC Plt Count [place] % (Auto) [place] # Seg Neutrophils % Seg Neutrophils # PT INR APTT ABG pH POC ABG pCO2 POC ABG pO2 ABG pO2 ABG HCO3 ABG Base Excess ABG Hemoglobin ABG Oxyhemoglobin ABG Sodium ABG Potassium ABG Glucose Oxyhemoglobin Carboxyhemoglobin Sodium Potassium Chloride Carbon Dioxide BUN Creatinine Glucose POC Glucose 126 H 146 H 141 H Calcium Phosphorus Magnesium AST ALT Total Creatine Kinase CK-MB (CK-2) Total Protein Albumin Arterial Blood Glucose Arterial Blood Ionized Calcium Salicylates Acetaminophen Valproic Acid Phenytoin 07/25/20 07/25/20 07/25/20 08:09 09:53 12:07 WBC Hgb RBC Hct MCH MCHC Plt Count [place] % (Auto) [place] # Seg Neutrophils % Seg Neutrophils # PT INR APTT ABG pH POC ABG pCO2 POC ABG pO2 ABG pO2 ABG HCO3 ABG Base Excess ABG Hemoglobin ABG Oxyhemoglobin ABG Sodium ABG Potassium ABG Glucose Oxyhemoglobin Carboxyhemoglobin Sodium Potassium Chloride Carbon Dioxide BUN Creatinine 0.2 L Glucose 115 H POC Glucose 138 H 131 H Calcium 8.2 L Phosphorus Magnesium AST ALT Total Creatine Kinase CK-MB (CK-2) Total Protein Albumin Arterial Blood Glucose Arterial Blood Ionized Calcium Salicylates Acetaminophen Valproic Acid Phenytoin 07/25/20 07/25/20 07/26/20 17:35 22:31 05:43 WBC Hgb RBC Hct MCH MCHC Plt Count [place] % (Auto) [place] # Seg Neutrophils % Seg Neutrophils # PT INR APTT ABG pH POC ABG pCO2 POC ABG pO2 ABG pO2 ABG HCO3 ABG Base Excess ABG Hemoglobin ABG Oxyhemoglobin ABG Sodium ABG Potassium ABG Glucose Oxyhemoglobin Carboxyhemoglobin Sodium Potassium Chloride Carbon Dioxide BUN Creatinine Glucose POC Glucose 125 H 130 H 153 H Calcium Phosphorus Magnesium AST ALT Total Creatine Kinase CK-MB (CK-2) Total Protein Albumin Arterial Blood Glucose Arterial Blood Ionized Calcium Salicylates Acetaminophen Valproic Acid Phenytoin 07/26/20 07/26/20 07/26/20 07:30 07:30 12:01 WBC Hgb RBC Hct MCH 33 H MCHC Plt Count 464 H [place] % (Auto) [place] # Seg Neutrophils % 71.4 H Seg Neutrophils # PT INR APTT ABG pH POC ABG pCO2 POC ABG pO2 ABG pO2 ABG HCO3 ABG Base Excess ABG Hemoglobin ABG Oxyhemoglobin ABG Sodium ABG Potassium ABG Glucose Oxyhemoglobin Carboxyhemoglobin Sodium Potassium Chloride Carbon Dioxide BUN Creatinine 0.3 L Glucose 144 H POC Glucose 134 H Calcium Phosphorus Magnesium AST ALT Total Creatine Kinase CK-MB (CK-2) Total Protein Albumin Arterial Blood Glucose Arterial Blood Ionized Calcium Salicylates Acetaminophen Valproic Acid Phenytoin 07/26/20 07/27/20 07/27/20 17:08 06:11 09:25 WBC Hgb RBC Hct MCH MCHC Plt Count [place] % (Auto) [place] # Seg Neutrophils % Seg Neutrophils # PT INR APTT ABG pH POC ABG pCO2 POC ABG pO2 ABG pO2 ABG HCO3 ABG Base Excess ABG Hemoglobin ABG Oxyhemoglobin ABG Sodium ABG Potassium ABG Glucose Oxyhemoglobin Carboxyhemoglobin Sodium 136 L Potassium Chloride Carbon Dioxide BUN Creatinine 0.3 L Glucose 120 H POC Glucose 106 H 128 H Calcium Phosphorus Magnesium AST ALT Total Creatine Kinase CK-MB (CK-2) Total Protein Albumin Arterial Blood Glucose Arterial Blood Ionized Calcium Salicylates Acetaminophen Valproic Acid Phenytoin 07/27/20 07/27/20 07/27/20 12:51 17:41 23:40 WBC Hgb RBC Hct MCH MCHC Plt Count [place] % (Auto) [place] # Seg Neutrophils % Seg Neutrophils # PT INR APTT ABG pH POC ABG pCO2 POC ABG pO2 ABG pO2 ABG HCO3 ABG Base Excess ABG Hemoglobin ABG Oxyhemoglobin ABG Sodium ABG Potassium ABG Glucose Oxyhemoglobin Carboxyhemoglobin Sodium Potassium Chloride Carbon Dioxide BUN Creatinine Glucose POC Glucose 124 H 111 H 148 H Calcium Phosphorus Magnesium AST ALT Total Creatine Kinase CK-MB (CK-2) Total Protein Albumin Arterial Blood Glucose Arterial Blood Ionized Calcium Salicylates Acetaminophen Valproic Acid Phenytoin 0907/28/20 07/28/20 05:00 06:14 11:25 WBC Hgb RBC Hct MCH MCHC Plt Count [place] % (Auto) [place] # Seg Neutrophils % Seg Neutrophils # PT INR APTT ABG pH POC ABG pCO2 POC ABG pO2 ABG pO2 ABG HCO3 ABG Base Excess ABG Hemoglobin ABG Oxyhemoglobin ABG Sodium ABG Potassium ABG Glucose Oxyhemoglobin Carboxyhemoglobin Sodium 135 L Potassium 5.1 H Chloride Carbon Dioxide 21 L BUN Creatinine 0.3 L Glucose 131 H POC Glucose 161 H 143 H Calcium Phosphorus Magnesium AST ALT Total Creatine Kinase CK-MB (CK-2) Total Protein Albumin Arterial Blood Glucose Arterial Blood Ionized Calcium Salicylates Acetaminophen Valproic Acid Phenytoin 07/28/20 07/28/20 07/29/20 18:06 23:53 05:36 WBC Hgb RBC Hct MCH MCHC Plt Count [place] % (Auto) [place] # Seg Neutrophils % Seg Neutrophils # PT INR APTT ABG pH POC ABG pCO2 POC ABG pO2 ABG pO2 ABG HCO3 ABG Base Excess ABG Hemoglobin ABG Oxyhemoglobin ABG Sodium ABG Potassium ABG Glucose Oxyhemoglobin Carboxyhemoglobin Sodium Potassium Chloride Carbon Dioxide BUN Creatinine 0.3 L Glucose 149 H POC Glucose 160 H 118 H Calcium Phosphorus Magnesium AST ALT Total Creatine Kinase CK-MB (CK-2) Total Protein Albumin Arterial Blood Glucose Arterial Blood Ionized Calcium Salicylates Acetaminophen Valproic Acid Phenytoin 07/29/20 07/29/20 07/29/20 06:46 12:08 17:29 WBC Hgb RBC Hct MCH MCHC Plt Count [place] % (Auto) [place] # Seg Neutrophils % Seg Neutrophils # PT INR APTT ABG pH POC ABG pCO2 POC ABG pO2 ABG pO2 ABG HCO3 ABG Base Excess ABG Hemoglobin ABG Oxyhemoglobin ABG Sodium ABG Potassium ABG Glucose Oxyhemoglobin Carboxyhemoglobin Sodium Potassium Chloride Carbon Dioxide BUN Creatinine Glucose POC Glucose 119 H 126 H 148 H Calcium Phosphorus Magnesium AST ALT Total Creatine Kinase CK-MB (CK-2) Total Protein Albumin Arterial Blood Glucose Arterial Blood Ionized Calcium Salicylates Acetaminophen Valproic Acid Phenytoin 07/29/20 07/30/20 07/30/20 23:49 05:48 17:48 WBC Hgb RBC Hct MCH MCHC Plt Count [place] % (Auto) [place] # Seg Neutrophils % Seg Neutrophils # PT INR APTT ABG pH POC ABG pCO2 POC ABG pO2 ABG pO2 ABG HCO3 ABG Base Excess ABG Hemoglobin ABG Oxyhemoglobin ABG Sodium ABG Potassium ABG Glucose Oxyhemoglobin Carboxyhemoglobin Sodium Potassium Chloride Carbon Dioxide BUN Creatinine Glucose POC Glucose 119 H 119 H 110 H Calcium Phosphorus Magnesium AST ALT Total Creatine Kinase CK-MB (CK-2) Total Protein Albumin Arterial Blood Glucose Arterial Blood Ionized Calcium Salicylates Acetaminophen Valproic Acid Phenytoin 07/31/20 07/31/20 07/31/20 11:55 12:34 17:18 WBC Hgb RBC Hct MCH MCHC Plt Count [place] % (Auto) [place] # Seg Neutrophils % Seg Neutrophils # PT INR APTT ABG pH POC ABG pCO2 POC ABG pO2 ABG pO2 ABG HCO3 ABG Base Excess ABG Hemoglobin ABG Oxyhemoglobin ABG Sodium ABG Potassium ABG Glucose Oxyhemoglobin Carboxyhemoglobin Sodium 134 L Potassium Chloride 97.0 L Carbon Dioxide 21 L BUN 19 H Creatinine 0.3 L Glucose 116 H POC Glucose 119 H 124 H Calcium Phosphorus Magnesium AST ALT Total Creatine Kinase CK-MB (CK-2) Total Protein Albumin Arterial Blood Glucose Arterial Blood Ionized Calcium Salicylates Acetaminophen Valproic Acid Phenytoin 07/31/20 08/01/20 08/01/20 23:30 06:22 06:45 WBC Hgb RBC Hct MCH MCHC Plt Count [place] % (Auto) [place] # Seg Neutrophils % Seg Neutrophils # PT INR APTT ABG pH POC ABG pCO2 POC ABG pO2 ABG pO2 ABG HCO3 ABG Base Excess ABG Hemoglobin ABG Oxyhemoglobin ABG Sodium ABG Potassium ABG Glucose Oxyhemoglobin Carboxyhemoglobin Sodium 136 L Potassium Chloride 97.9 L Carbon Dioxide BUN Creatinine 0.3 L Glucose 122 H POC Glucose 138 H 123 H Calcium Phosphorus Magnesium AST ALT Total Creatine Kinase CK-MB (CK-2) Total Protein Albumin Arterial Blood Glucose Arterial Blood Ionized Calcium Salicylates Acetaminophen Valproic Acid Phenytoin 08/01/20 08/02/20 08/02/20 18:17 00:51 06:48 WBC Hgb RBC Hct MCH MCHC Plt Count [place] % (Auto) [place] # Seg Neutrophils % Seg Neutrophils # PT INR APTT ABG pH POC ABG pCO2 POC ABG pO2 ABG pO2 ABG HCO3 ABG Base Excess ABG Hemoglobin ABG Oxyhemoglobin ABG Sodium ABG Potassium ABG Glucose Oxyhemoglobin Carboxyhemoglobin Sodium Potassium Chloride Carbon Dioxide BUN Creatinine Glucose POC Glucose 111 H 109 H 123 H Calcium Phosphorus Magnesium AST ALT Total Creatine Kinase CK-MB (CK-2) Total Protein Albumin Arterial Blood Glucose Arterial Blood Ionized Calcium Salicylates Acetaminophen Valproic Acid Phenytoin 08/02/20 08/02/20 08/02/20 12:51 17:55 22:18 WBC Hgb RBC Hct MCH MCHC Plt Count [place] % (Auto) [place] # Seg Neutrophils % Seg Neutrophils # PT INR APTT ABG pH POC ABG pCO2 POC ABG pO2 ABG pO2 ABG HCO3 ABG Base Excess ABG Hemoglobin ABG Oxyhemoglobin ABG Sodium ABG Potassium ABG Glucose Oxyhemoglobin Carboxyhemoglobin Sodium Potassium Chloride Carbon Dioxide BUN Creatinine Glucose POC Glucose 135 H 119 H 117 H Calcium Phosphorus Magnesium AST ALT Total Creatine Kinase CK-MB (CK-2) Total Protein Albumin Arterial Blood Glucose Arterial Blood Ionized Calcium Salicylates Acetaminophen Valproic Acid Phenytoin 08/03/20 08/03/20 08/03/20 05:45 06:05 12:15 WBC Hgb RBC Hct MCH MCHC Plt Count [place] % (Auto) [place] # Seg Neutrophils % Seg Neutrophils # PT INR APTT ABG pH POC ABG pCO2 POC ABG pO2 ABG pO2 ABG HCO3 ABG Base Excess ABG Hemoglobin ABG Oxyhemoglobin ABG Sodium ABG Potassium ABG Glucose Oxyhemoglobin Carboxyhemoglobin Sodium 135 L Potassium 5.4 H D Chloride 96.2 L Carbon Dioxide BUN Creatinine 0.4 L Glucose 117 H POC Glucose 109 H 127 H Calcium Phosphorus Magnesium AST ALT Total Creatine Kinase CK-MB (CK-2) Total Protein Albumin Arterial Blood Glucose Arterial Blood Ionized Calcium Salicylates Acetaminophen Valproic Acid Phenytoin 08/03/20 08/03/20 08/04/20 17:00 22:35 05:59 WBC Hgb RBC Hct MCH MCHC Plt Count [place] % (Auto) [place] # Seg Neutrophils % Seg Neutrophils # PT INR APTT ABG pH POC ABG pCO2 POC ABG pO2 ABG pO2 ABG HCO3 ABG Base Excess ABG Hemoglobin ABG Oxyhemoglobin ABG Sodium ABG Potassium ABG Glucose Oxyhemoglobin Carboxyhemoglobin Sodium Potassium Chloride Carbon Dioxide BUN Creatinine Glucose POC Glucose 117 H 114 H 115 H Calcium Phosphorus Magnesium AST ALT Total Creatine Kinase CK-MB (CK-2) Total Protein Albumin Arterial Blood Glucose Arterial Blood Ionized Calcium Salicylates Acetaminophen Valproic Acid Phenytoin 08/04/20 08/04/20 08/05/20 17:00 23:58 06:33 WBC Hgb RBC Hct MCH MCHC Plt Count [place] % (Auto) [place] # Seg Neutrophils % Seg Neutrophils # PT INR APTT ABG pH POC ABG pCO2 POC ABG pO2 ABG pO2 ABG HCO3 ABG Base Excess ABG Hemoglobin ABG Oxyhemoglobin ABG Sodium ABG Potassium ABG Glucose Oxyhemoglobin Carboxyhemoglobin Sodium Potassium Chloride Carbon Dioxide BUN Creatinine Glucose POC Glucose 123 H 110 H 115 H Calcium Phosphorus Magnesium AST ALT Total Creatine Kinase CK-MB (CK-2) Total Protein Albumin Arterial Blood Glucose Arterial Blood Ionized Calcium Salicylates Acetaminophen Valproic Acid Phenytoin 08/06/20 08/06/20 08/07/20 08:59 12:27 00:39 WBC Hgb RBC Hct MCH MCHC Plt Count [place] % (Auto) [place] # Seg Neutrophils % Seg Neutrophils # PT INR APTT ABG pH POC ABG pCO2 POC ABG pO2 ABG pO2 ABG HCO3 ABG Base Excess ABG Hemoglobin ABG Oxyhemoglobin ABG Sodium ABG Potassium ABG Glucose Oxyhemoglobin Carboxyhemoglobin Sodium 133 L Potassium Chloride 97.0 L Carbon Dioxide BUN Creatinine 0.3 L Glucose 130 H POC Glucose 112 H 55 L Calcium Phosphorus Magnesium AST 63 H ALT Total Creatine Kinase CK-MB (CK-2) Total Protein Albumin 3.8 L Arterial Blood Glucose Arterial Blood Ionized Calcium Salicylates Acetaminophen Valproic Acid Phenytoin 08/07/20 08/07/20 08/07/20 05:36 07:19 07:19 WBC Hgb 15.2 H RBC Hct 45.5 H MCH 33 H MCHC Plt Count 663 H [place] % (Auto) [place] # Seg Neutrophils % Seg Neutrophils # PT INR APTT ABG pH POC ABG pCO2 POC ABG pO2 ABG pO2 ABG HCO3 ABG Base Excess ABG Hemoglobin ABG Oxyhemoglobin ABG Sodium ABG Potassium ABG Glucose Oxyhemoglobin Carboxyhemoglobin Sodium 136 L Potassium Chloride 97.9 L Carbon Dioxide BUN Creatinine 0.3 L Glucose 123 H POC Glucose 118 H Calcium Phosphorus Magnesium AST ALT Total Creatine Kinase CK-MB (CK-2) Total Protein Albumin Arterial Blood Glucose Arterial Blood Ionized Calcium Salicylates Acetaminophen Valproic Acid Phenytoin 08/07/20 08/08/20 08/08/20 15:47 05:24 11:42 WBC Hgb RBC Hct MCH MCHC Plt Count [place] % (Auto) [place] # Seg Neutrophils % Seg Neutrophils # PT 11.7 L INR 0.84 L APTT ABG pH POC ABG pCO2 POC ABG pO2 ABG pO2 ABG HCO3 ABG Base Excess ABG Hemoglobin ABG Oxyhemoglobin ABG Sodium ABG Potassium ABG Glucose Oxyhemoglobin Carboxyhemoglobin Sodium Potassium Chloride Carbon Dioxide BUN Creatinine Glucose POC Glucose 115 H 113 H Calcium Phosphorus Magnesium AST ALT Total Creatine Kinase CK-MB (CK-2) Total Protein Albumin Arterial Blood Glucose Arterial Blood Ionized Calcium Salicylates Acetaminophen Valproic Acid Phenytoin 08/08/20 08/09/20 08/09/20 22:24 07:05 07:05 WBC Hgb RBC Hct MCH 34 H MCHC 36 H Plt Count 539 H [place] % (Auto) [place] # Seg Neutrophils % Seg Neutrophils # PT INR APTT ABG pH POC ABG pCO2 POC ABG pO2 ABG pO2 ABG HCO3 ABG Base Excess ABG Hemoglobin ABG Oxyhemoglobin ABG Sodium ABG Potassium ABG Glucose Oxyhemoglobin Carboxyhemoglobin Sodium 135 L Potassium 5.2 H Chloride Carbon Dioxide BUN Creatinine 0.4 L Glucose POC Glucose 109 H Calcium Phosphorus Magnesium AST ALT Total Creatine Kinase CK-MB (CK-2) Total Protein Albumin Arterial Blood Glucose Arterial Blood Ionized Calcium Salicylates Acetaminophen Valproic Acid Phenytoin 08/09/20 08/10/20 08/11/20 23:30 13:00 12:10 WBC Hgb RBC Hct MCH MCHC Plt Count [place] % (Auto) [place] # Seg Neutrophils % Seg Neutrophils # PT INR APTT ABG pH POC ABG pCO2 POC ABG pO2 ABG pO2 ABG HCO3 ABG Base Excess ABG Hemoglobin ABG Oxyhemoglobin ABG Sodium ABG Potassium ABG Glucose Oxyhemoglobin Carboxyhemoglobin Sodium Potassium Chloride Carbon Dioxide 21 L BUN Creatinine 0.3 L Glucose POC Glucose 208 H 118 H Calcium Phosphorus Magnesium AST ALT Total Creatine Kinase CK-MB (CK-2) Total Protein Albumin Arterial Blood Glucose Arterial Blood Ionized Calcium Salicylates Acetaminophen Valproic Acid Phenytoin 08/11/20 08/11/20 08/12/20 17:49 23:31 06:18 WBC Hgb RBC Hct MCH MCHC Plt Count [place] % (Auto) [place] # Seg Neutrophils % Seg Neutrophils # PT INR APTT ABG pH POC ABG pCO2 POC ABG pO2 ABG pO2 ABG HCO3 ABG Base Excess ABG Hemoglobin ABG Oxyhemoglobin ABG Sodium ABG Potassium ABG Glucose Oxyhemoglobin Carboxyhemoglobin Sodium Potassium Chloride Carbon Dioxide BUN Creatinine Glucose POC Glucose 139 H 133 H 132 H Calcium Phosphorus Magnesium AST ALT Total Creatine Kinase CK-MB (CK-2) Total Protein Albumin Arterial Blood Glucose Arterial Blood Ionized Calcium Salicylates Acetaminophen Valproic Acid Phenytoin 08/12/20 08/12/20 08/13/20 12:17 16:40 00:17 WBC Hgb RBC Hct MCH MCHC Plt Count [place] % (Auto) [place] # Seg Neutrophils % Seg Neutrophils # PT INR APTT ABG pH POC ABG pCO2 POC ABG pO2 ABG pO2 ABG HCO3 ABG Base Excess ABG Hemoglobin ABG Oxyhemoglobin ABG Sodium ABG Potassium ABG Glucose Oxyhemoglobin Carboxyhemoglobin Sodium Potassium Chloride Carbon Dioxide BUN Creatinine Glucose POC Glucose 124 H 109 H 128 H Calcium Phosphorus Magnesium AST ALT Total Creatine Kinase CK-MB (CK-2) Total Protein Albumin Arterial Blood Glucose Arterial Blood Ionized Calcium Salicylates Acetaminophen Valproic Acid Phenytoin 08/13/20 08/13/20 08/13/20 06:18 16:50 22:40 WBC Hgb RBC Hct MCH MCHC Plt Count [place] % (Auto) [place] # Seg Neutrophils % Seg Neutrophils # PT INR APTT ABG pH POC ABG pCO2 POC ABG pO2 ABG pO2 ABG HCO3 ABG Base Excess ABG Hemoglobin ABG Oxyhemoglobin ABG Sodium ABG Potassium ABG Glucose Oxyhemoglobin Carboxyhemoglobin Sodium Potassium Chloride Carbon Dioxide BUN Creatinine Glucose POC Glucose 115 H 119 H 109 H Calcium Phosphorus Magnesium AST ALT Total Creatine Kinase CK-MB (CK-2) Total Protein Albumin Arterial Blood Glucose Arterial Blood Ionized Calcium Salicylates Acetaminophen Valproic Acid Phenytoin 08/14/20 08/14/20 08/15/20 05:13 12:03 09:24 WBC Hgb RBC Hct MCH MCHC Plt Count [place] % (Auto) [place] # Seg Neutrophils % Seg Neutrophils # PT INR APTT ABG pH POC ABG pCO2 POC ABG pO2 ABG pO2 ABG HCO3 ABG Base Excess ABG Hemoglobin ABG Oxyhemoglobin ABG Sodium ABG Potassium ABG Glucose Oxyhemoglobin Carboxyhemoglobin Sodium 134 L Potassium Chloride Carbon Dioxide 14 L D BUN Creatinine 0.3 L Glucose 121 H POC Glucose 122 H 126 H Calcium Phosphorus Magnesium AST ALT Total Creatine Kinase CK-MB (CK-2) Total Protein Albumin Arterial Blood Glucose Arterial Blood Ionized Calcium Salicylates Acetaminophen Valproic Acid Phenytoin 08/15/20 08/15/20 08/15/20 12:03 15:26 17:08 WBC Hgb RBC Hct MCH MCHC Plt Count [place] % (Auto) [place] # Seg Neutrophils % Seg Neutrophils # PT INR APTT 20.4 L ABG pH POC ABG pCO2 POC ABG pO2 ABG pO2 ABG HCO3 ABG Base Excess ABG Hemoglobin ABG Oxyhemoglobin ABG Sodium ABG Potassium ABG Glucose Oxyhemoglobin Carboxyhemoglobin Sodium Potassium Chloride Carbon Dioxide BUN Creatinine Glucose POC Glucose 108 H 137 H Calcium Phosphorus Magnesium AST ALT Total Creatine Kinase CK-MB (CK-2) Total Protein Albumin Arterial Blood Glucose Arterial Blood Ionized Calcium Salicylates Acetaminophen Valproic Acid Phenytoin 08/15/20 08/16/20 08/16/20 23:11 11:56 11:56 WBC Hgb RBC Hct MCH MCHC Plt Count [place] % (Auto) [place] # Seg Neutrophils % Seg Neutrophils # PT INR APTT ABG pH POC ABG pCO2 POC ABG pO2 ABG pO2 ABG HCO3 ABG Base Excess ABG Hemoglobin ABG Oxyhemoglobin ABG Sodium ABG Potassium ABG Glucose Oxyhemoglobin Carboxyhemoglobin Sodium 131 L Potassium Chloride 91.6 L Carbon Dioxide BUN Creatinine 0.3 L Glucose 169 H POC Glucose 152 H Calcium Phosphorus Magnesium AST ALT Total Creatine Kinase CK-MB (CK-2) Total Protein Albumin Arterial Blood Glucose Arterial Blood Ionized Calcium Salicylates Acetaminophen Valproic Acid Phenytoin 8.9 L 08/16/20 08/17/20 08/17/20 16:45 04:48 05:26 WBC Hgb RBC Hct MCH MCHC Plt Count [place] % (Auto) [place] # Seg Neutrophils % Seg Neutrophils # PT INR APTT ABG pH POC ABG pCO2 POC ABG pO2 ABG pO2 ABG HCO3 ABG Base Excess ABG Hemoglobin ABG Oxyhemoglobin ABG Sodium ABG Potassium ABG Glucose Oxyhemoglobin Carboxyhemoglobin Sodium 134 L Potassium Chloride 94.4 L Carbon Dioxide BUN Creatinine 0.3 L Glucose 122 H POC Glucose 125 H 122 H Calcium Phosphorus Magnesium AST ALT Total Creatine Kinase CK-MB (CK-2) Total Protein Albumin Arterial Blood Glucose Arterial Blood Ionized Calcium Salicylates Acetaminophen Valproic Acid Phenytoin 08/17/20 08/17/20 08/18/20 16:30 19:39 00:59 WBC Hgb RBC Hct MCH MCHC Plt Count [place] % (Auto) [place] # Seg Neutrophils % Seg Neutrophils # PT INR APTT ABG pH POC ABG pCO2 POC ABG pO2 ABG pO2 ABG HCO3 ABG Base Excess ABG Hemoglobin ABG Oxyhemoglobin ABG Sodium ABG Potassium ABG Glucose Oxyhemoglobin Carboxyhemoglobin Sodium 133 L Potassium Chloride 94.0 L Carbon Dioxide BUN Creatinine 0.2 L Glucose 125 H POC Glucose 126 H 120 H Calcium Phosphorus Magnesium AST ALT Total Creatine Kinase CK-MB (CK-2) Total Protein Albumin Arterial Blood Glucose Arterial Blood Ionized Calcium Salicylates Acetaminophen Valproic Acid Phenytoin 08/18/20 08/18/20 08/19/20 07:13 17:23 00:48 WBC Hgb RBC Hct MCH MCHC Plt Count [place] % (Auto) [place] # Seg Neutrophils % Seg Neutrophils # PT INR APTT ABG pH POC ABG pCO2 POC ABG pO2 ABG pO2 ABG HCO3 ABG Base Excess ABG Hemoglobin ABG Oxyhemoglobin ABG Sodium ABG Potassium ABG Glucose Oxyhemoglobin Carboxyhemoglobin Sodium Potassium Chloride Carbon Dioxide BUN Creatinine Glucose POC Glucose 127 H 109 H 116 H Calcium Phosphorus Magnesium AST ALT Total Creatine Kinase CK-MB (CK-2) Total Protein Albumin Arterial Blood Glucose Arterial Blood Ionized Calcium Salicylates Acetaminophen Valproic Acid Phenytoin 08/19/20 08/19/20 08/19/20 11:14 16:54 21:29 WBC Hgb RBC Hct MCH MCHC Plt Count [place] % (Auto) [place] # Seg Neutrophils % Seg Neutrophils # PT INR APTT ABG pH 7.478 H POC ABG pCO2 POC ABG pO2 ABG pO2 68.2 L ABG HCO3 18.8 L ABG Base Excess -2.9 L ABG Hemoglobin ABG Oxyhemoglobin ABG Sodium ABG Potassium ABG Glucose Oxyhemoglobin 93.8 L Carboxyhemoglobin Sodium Potassium Chloride Carbon Dioxide BUN Creatinine Glucose POC Glucose 110 H 113 H Calcium Phosphorus Magnesium AST ALT Total Creatine Kinase CK-MB (CK-2) Total Protein Albumin Arterial Blood Glucose Arterial Blood Ionized Calcium Salicylates Acetaminophen Valproic Acid Phenytoin 08/19/20 08/20/20 08/20/20 23:53 00:12 01:52 WBC Hgb RBC Hct MCH MCHC Plt Count [place] % (Auto) [place] # Seg Neutrophils % Seg Neutrophils # PT INR APTT ABG pH 7.496 H 7.562 H POC ABG pCO2 21.8 L 21.0 L POC ABG pO2 123.7 H ABG pO2 ABG HCO3 ABG Base Excess ABG Hemoglobin ABG Oxyhemoglobin ABG Sodium 133.1 L 133.9 L ABG Potassium 4.7 H ABG Glucose 202 H 151 H Oxyhemoglobin Carboxyhemoglobin Sodium Potassium Chloride Carbon Dioxide BUN Creatinine Glucose POC Glucose 183 H Calcium Phosphorus Magnesium AST ALT Total Creatine Kinase CK-MB (CK-2) Total Protein Albumin Arterial Blood Glucose 202 H 151 H Arterial Blood Ionized Calcium 4.4 L Salicylates Acetaminophen Valproic Acid Phenytoin 08/20/20 08/20/20 08/20/20 06:19 09:31 12:33 WBC Hgb RBC Hct MCH MCHC Plt Count [place] % (Auto) [place] # Seg Neutrophils % Seg Neutrophils # PT INR APTT ABG pH POC ABG pCO2 POC ABG pO2 ABG pO2 ABG HCO3 ABG Base Excess ABG Hemoglobin ABG Oxyhemoglobin ABG Sodium ABG Potassium ABG Glucose Oxyhemoglobin Carboxyhemoglobin Sodium Potassium 5.2 H Chloride Carbon Dioxide BUN 34 H Creatinine Glucose 149 H POC Glucose 124 H 109 H Calcium 8.3 L Phosphorus Magnesium AST ALT Total Creatine Kinase CK-MB (CK-2) Total Protein Albumin Arterial Blood Glucose Arterial Blood Ionized Calcium Salicylates Acetaminophen Valproic Acid Phenytoin 08/20/20 08/21/20 08/21/20 18:26 00:58 05:21 WBC Hgb RBC Hct MCH MCHC Plt Count [place] % (Auto) [place] # Seg Neutrophils % Seg Neutrophils # PT INR APTT ABG pH POC ABG pCO2 POC ABG pO2 ABG pO2 ABG HCO3 ABG Base Excess ABG Hemoglobin ABG Oxyhemoglobin ABG Sodium ABG Potassium ABG Glucose Oxyhemoglobin Carboxyhemoglobin Sodium Potassium Chloride Carbon Dioxide BUN Creatinine Glucose POC Glucose 133 H 143 H 106 H Calcium Phosphorus Magnesium AST ALT Total Creatine Kinase CK-MB (CK-2) Total Protein Albumin Arterial Blood Glucose Arterial Blood Ionized Calcium Salicylates Acetaminophen Valproic Acid Phenytoin 08/21/20 08/21/20 08/21/20 05:41 11:41 18:15 WBC Hgb RBC Hct MCH MCHC Plt Count [place] % (Auto) [place] # Seg Neutrophils % Seg Neutrophils # PT INR APTT ABG pH 7.513 H POC ABG pCO2 POC ABG pO2 ABG pO2 ABG HCO3 26.2 H ABG Base Excess 3.4 H ABG Hemoglobin 10.5 L ABG Oxyhemoglobin ABG Sodium ABG Potassium ABG Glucose Oxyhemoglobin Carboxyhemoglobin Sodium Potassium Chloride Carbon Dioxide BUN 23 H Creatinine 0.2 L D Glucose 102 H POC Glucose 138 H Calcium 8.2 L Phosphorus Magnesium AST ALT Total Creatine Kinase CK-MB (CK-2) Total Protein Albumin Arterial Blood Glucose Arterial Blood Ionized Calcium Salicylates Acetaminophen Valproic Acid Phenytoin 08/21/20 08/22/20 08/22/20 18:38 05:41 11:18 WBC 20.8 H Hgb RBC 3.51 L Hct MCH 33 H MCHC Plt Count [place] % (Auto) [place] # Seg Neutrophils % Seg Neutrophils # PT INR APTT ABG pH 7.518 H POC ABG pCO2 POC ABG pO2 143.5 H ABG pO2 ABG HCO3 ABG Base Excess ABG Hemoglobin ABG Oxyhemoglobin 98.9 H ABG Sodium 135.9 L ABG Potassium 3.2 L ABG Glucose 123 H Oxyhemoglobin Carboxyhemoglobin 0.4 L Sodium Potassium Chloride Carbon Dioxide BUN Creatinine Glucose POC Glucose 108 H Calcium Phosphorus Magnesium AST ALT Total Creatine Kinase CK-MB (CK-2) Total Protein Albumin Arterial Blood Glucose 123 H Arterial Blood Ionized Calcium 4.5 L Salicylates Acetaminophen Valproic Acid Phenytoin
[2020-08-22 16:12] LABS: Basophils % (Auto) 0.3 % (0.0-1.8); Eosinophils # (Auto) 0.1 K/mm3 (0.0-0.4); Eosinophils % (Auto) 0.4 % (0.0-4.3); Hemoglobin 10.7 gm/dl (10.1-14.3); Lymphocytes # (Auto) 1.5 K/mm3 (1.2-5.4); Lymphocytes % (Auto) 12.8 % (13.4-35.0); Mean Corpuscular HGB Conc 33 % (30-34); Mean Corpuscular Volume 98 fl (79-97); Monocytes # (Auto) 0.5 K/mm3 (0.0-0.8); Monocytes % (Auto) 4.2 % (0.0-7.3); Platelet Count 442 K/mm3 (140-440); Red Blood Count 3.27 M/mm3 (3.65-5.03); Red Cell Distribution Width 15.2 % (13.2-15.2)
[2020-08-22 16:17] LABS: Alanine Aminotransferase 40 units/L (7-56); Albumin 2.6 g/dL (3.9-5); Blood Urea Nitrogen 16 mg/dL (7-17); Calcium 7.7 mg/dL (8.4-10.2); Hemolysis Index 4
[2020-08-22 16:18] LABS: BUN/Creatinine Ratio 80
[2020-08-22] MEDS: POTASSIUM CHLORIDE 10 MEQ 10 MEQ/100 ML BAG IV SCH ×4 (16:52→20:56)
[2020-08-22 18:00] LABS: Bilirubin,Urine NEG (Negative); Blood,Urine NEG (Negative); Color,Urine Yellow (Yellow); Mucus,Urine FEW /HPF; Protein,Urine <15 mg/dL mg/dL (Negative); Urobilinogen,Urine < 2.0 mg/dL (<2.0)
[2020-08-22] MEDS ORDERED: FOSPHENYTOIN IV ONE (18:38)
[2020-08-22] MEDS ORDERED: SODIUM CHLORIDE IV ONE (18:38)
[2020-08-22] MEDS ORDERED: [UNRECOGNIZED DRUG - OTHER] IV ONE (18:38)
[2020-08-23] MEDS: INSULIN REGULAR, HUMAN 100 UNIT/ML 3ML VIAL SUB-Q SCH ×4 (00:31→21:17)
--- NOTE | 2020-08-23 01:56 | XRay Report ---
CHEST 1 VIEW INDICATION / CLINICAL INFORMATION: follow up respiratory failure. COMPARISON: 08/22/2020 FINDINGS: SUPPORT DEVICES: PICC line an endotracheal tube appear in satisfactory position radiographically HEART / MEDIASTINUM: No significant abnormality. LUNGS / PLEURA: Lungs appear unchanged.. No pneumothorax. ADDITIONAL FINDINGS: No significant additional findings. IMPRESSION: 1. No significant change. Signer Name: Bj Meyers MD Signed: 08/23/2020 1:52 AM Workstation Name: [id number]
[2020-08-23] MEDS: HEPARIN 5,000 UNIT/1 ML VIAL SUB-Q SCH ×3 (03:06→21:13)
[2020-08-23] MEDS: VANCOMYCIN/NS 1 GM/250 ML 1 GM/250 ML BAG IV SCH ×2 (05:00→21:14)
[2020-08-23 05:10] LABS: ABG Base Excess 0.2 mmol/L (-2.0-3.0); ABG HCO3 20.7 mmol/L (20.0-26.0); ABG Methemoglobin 0.6 % (0.0-1.5); ABG Oxygen Saturation 97.7 % (95.0-99.0); ABG PCO2 24.1 mm Hg; ABG PH 7.55 pH Units (7.350-7.450); ABG PO2 92.2 mm Hg (80.0-90.0)
[2020-08-23] MEDS: PHENYTOIN 100 MG in SODIUM CHLORIDE 0.9% 100 ML IV SCH ×3 (06:33→23:19)
[2020-08-23] MEDS: CEFEPIME/NS 2 GM/100 ML 2 GM/100 ML BAG IV SCH ×3 (06:34→21:15)
[2020-08-23 09:53] LABS: Hematocrit 32.3 % (30.3-42.9); Hemoglobin 10.8 gm/dl (10.1-14.3); Mean Corpuscular HGB Conc 33 % (30-34); Mean Corpuscular Volume 97 fl (79-97); Platelet Count 424 K/mm3 (140-440); Red Blood Count 3.34 M/mm3 (3.65-5.03); Red Cell Distribution Width 15.2 % (13.2-15.2)
[2020-08-23 10:13] LABS: Alanine Aminotransferase 34 units/L (7-56); Albumin 2.4 g/dL (3.9-5); Blood Urea Nitrogen 19 mg/dL (7-17); Hemolysis Index 1
[2020-08-23 10:46] LABS: BUN/Creatinine Ratio 95
[2020-08-23] MEDS: levETIRAcetam 500 MG/5 ML ORAL LIQD PO SCH ×2 (10:49→21:15)
[2020-08-23] MEDS: FAMOTIDINE 20 MG TAB PO SCH ×2 (10:49→21:16)
[2020-08-23] MEDS: VALPROIC ACID 250 MG/5 ML ORAL LIQD FEEDTUBE SCH ×2 (10:50→21:16)
[2020-08-23] MEDS: MEGESTROL 400 MG/10 ML ORAL LIQD PO SCH (10:50)
[2020-08-23] MEDS: PANTOPRAZOLE 40 MG INJ IV SCH (10:50)
[2020-08-23] MEDS: LACOSAMIDE 100 MG TAB PO SCH ×2 (10:50→21:16)
[2020-08-23] MEDS: POTASSIUM CHLORIDE 10 MEQ 10 MEQ/100 ML BAG IV SCH ×4 (12:09→15:57)
[2020-08-23 12:18] LABS: Band Neutrophils # (Manual) 2.5 K/mm3; Basophils % (Manual) 0 % (0.0-1.8); Eosinophils % (Manual) 0 % (0.0-4.3); Total Cells Counted 100
--- NOTE | 2020-08-23 12:18 | Progress Note ---
Assessment and Plan Assessment and plan: 60-year-old female patient with schizoaffective disorder with active hallucinations and confusion presented from [place] for altered mental status and poor intake on 07/13. She was found to have rhabdomyolysis and electrolyte imbalances. She then developed C. difficile diarrhea and she has completed her regimen of p.o. vancomycin from 07/20-08/03. RN stated patient had to liquid bowel movements today however patient is on vancomycin. Per policy if patient has the decreased BMs she was not a C. difficile sample. At the time of my exam this afternoon the patient was in her usual state with no focal seizure activity noted. However this evening when neurology examined her she was noted to have another seizure and was given Ativan IV. Antiepileptic medications adjusted. Dr. Nails spoke to Dr. Taylor about need to transfer for continuous EEG. He also recommended every hour neurochecks and intubation. Stat ABG ordered. 07/13; patient's CK levels trending down on 1678, continue IV hydration patient is more alert at times, hallucinating, Noncommunicative, severe hypokalemia, replace per protocol 07/14; potassium level significantly improved today to 3.2, replenish per protocol. CK levels trending down 828, continue IV hydration, monitor electrolytes 07/15; patient refused potassium yesterday today potassium levels again 2.7 We will add KCl to IV fluids, and IV K riders, monitor electrolytes. CK level 425. Refusing to eat confused noncommunicative. Possible inpatient psych admission when medically stable 07/16; rhabdomyolysis resolved, mild electrolyte imbalances, if corrected medic ally stable for inpatient psych placement 07/17: replete K and phosphate. repeat CBc BMP tomorrow. White count needs to be < 10 for inpt psych admission 07/18: cont to have mildly elevated white count, c/o loose stool. will check for C. def - start flagyl and cipro 07/19: White count normal today. change medications to Po. medically stable to go for inpt psych unit. 07/20; positive for C. def. patient not eating properly, refusing meds time to time. Psych now recommended outpt f/u. CM working on placement. Patient remains nonverbal, does not follow any commend and not giving any personal info. 07/21; K 2.0 today, cont to replete, follow BMP, patient remains nonverbal and not cooperative. refuses to eat and meds. cont d51/2NS. if condition doesnot improve will consider TF 07/22: Potassium level persistently remains low, magnesium 1.6 today. Will replete magnesium and potassium. Patient refusing meds and not eating at all per RN report. Totally noncooperative during the encounternot respond to any question. Keeps her eye closing and covering her face with her forearm. Will order for tube feeding and Dobbhoff tube. Continue to follow. We will also add Megace to boost appetite. 07/23: started on TF, follow BMP, change iv fluid to 1/2 NS. patient remains nonverbal 07/24; clinically unchanged, replete K, iv fluid and TF. reconsult psych as patient remains in catatonic phase 07/25: psych recommendation noted, continue tube feeding, continue to replete electrolytes as needed, follow BMP. I strongly believe her severe electrolytes derangement and encephalopathy related to her catatonia, poor oral intake other than any underlying medical conditions. There is no family contact in file, no home address available, patient appeared to be unfunded. resident care manager rn working on placement. 07/26: psych recommendation noted, continue tube feeding, continue to replete electrolytes as needed, follow BMP. I strongly believe her severe electrolytes derangement and encephalopathy related to her catatonia, poor oral intake other than any underlying medical conditions. There is no family contact in file, no home address available, patient appeared to be unfunded. resident care manager rn working on placement. 07/27; continue with tube feeding. There is no family contact in file, no home address available, patient appeared to be unfunded. Case management is following. 07/28; patient still on tube feeding, patient is noncommunicative. I believe her condition is related to her catatonia. Psych is following her. Currently her electrolytes are corrected. There is no family contact in file, no home address available, patient appeared to be unfunded. Case management is following. 07/29 patient is nonverbal, eyes open does not follow simple commands,, still having low-grade fever T-max 100 degrees,, lab results reviewed discussed with RN- still has loose stools, catalytic case operator notes reviewed, unable to contact family 07/30 no acute events overnight, diarrhea improved, stop IV fluids, disposition to be decided 07/31: aviation tactical readiness officer presented to the bedside to attempt to fingerprint the patient to identify her. However his machine was not working 08/01:' Per catalytic case operator note [facility] [employer] has been contacted to help in identifying the patient. On officer is to report to bedside and was instructed to call the catalytic case operator upon arrival. 08/02/2020 still has diarrhea 08/03/2020 diarrhea improving. Today is the last day of vancomycin 08/04/2020 patient has no diarrhea 08/05: retail shift leader RN reported patient had a seizure overnight, Ativan was ordered however was not administered because according to the dayshift RN he was reported that the patient "did not need the medication because she was not having a seizure at the moment". Patient remained hyponatremic and hypochloremic and after conversing with the nurse patient was not getting her prescribed dose FWF for hyponatremia which was corrected 08/06: Electrolyte imbalance discontinue, patient still catatonic 08/07: Electrolyte imbalances continue, to physician consent for PEG tube obtained and GI consulted 08/08: PEG scheduled for 08/09 08/09: s/p PEG placement with GI, hyperkalemic (potassium 5.2) s/p MN Kayexalate. 08/11; patient is on PEG tube feeding. C. difficile treated and resolved. Patient still in catatonic state. Pending guardianship. 08/12/2020 patient on PEG tube feeding. Guardianship pending. Pending placement. 08/13: no aucte events reported overnight, gaurdenship pending. 08/14/20: quality and futility of care is questionable, patient not following any commands, pupillary reflex noted, neurology and ethics consult placed 08/15: Neurology recommended LP, EEG, CT head and MRI brain with and without contrast which are all pending. 08/16: Physician consult obtained for LP which was completed today. Bilateral lower extremity x-rays noted no metal and a physician consent was obtained for contrast therefore MRI brain pending. EEG still pending. Patient again has hypochloremia and hyponatrema 08/17: status epilepticus noted on EEG, Neurology recommends transfer for contin ues EEG. 08/19: seizures subsided. No active seizures. Pending placement. 08/20: CXR shows possible PNA, initiated on cefepime and vancomycin 08/21. Discussed with neurologist. Patient needs to be transferred to a tertiary center for continuous EEG monitoring Transfer to [facility] initiated. As per dilley, case will be sent to and earliest time for possible transfer will be tomorrow. In the meantime, patient will need intubation and sedation for status as per neurology. Critical care consult plac ed. Vent orders placed. Anesthesia paged. Patient will be going to the ICU. Transfer order placed. Discussed with anesthesia Dr Hawthorne 6:50 PM and told him why patient needs to be intubated immediately. Apparently, patient transfer orders still in progress and patient still on the floors during his evaluation at bedside. Patient cannot be intubated or while on the floor as per anesthesia MD. Patient is to go to ICU and then intubated. 08/22. Overnight events noted. Patient intubated this AM and started on versed. Discussed with [facility], case is still being reviewed. Called [facility] and was told facility do not have continuous EEG monitoring. She remains on multiple seizure medications. Continue BP medications. Neurology is following closely. 08/23. Patient seen and examined at bedside this morning. Patient has been denied transfer by [facility] has no neuro critical care ICU available. [facility] only accepting patients with acute stroke, gabriel or trauma. Placed a call to [facility] and gave details today. Awaiting callback. Otherwise patient remains sedated. EEG performed yesterday shows significant improvement in status epilepticus. Neurology to review today. - Patient Problems (1) Status epilepticus Current Visit: Yes Status: Acute Plan to address problem: RN reported seizure activity on on 08/05; Ativan was ordered however was not administered because according to the dayshift RN he was reported that the patient "did not need the medication because she was not having a seizure at the moment". After reviewing nursing notes it is noted that she had reported seizure activity by RN on 08/12 and was given Ativan. Hospitalist was informed No seizure activity reported since Neurology consulted EEG no no status epilepticus Pt is on depakote 1000 mg bid; Keppra 1500 mg bid; vimpat 200 mg iv q12; and now initiated on Fosphentoin (load and maintenance) despite drug-drug interaction on 08/21 per neurology Per neurology: Patient will require transfer to a facility w/ cEEG monitoring for higher level of care as EEG here is intermittently available and intermittently read at present; increase depakote to 1000 mg bid (bolus of 500 mg via peg); increase Keppra to 1500 mg bid; initiate vimpat 200 mg iv q12; s/p Ativan 1 mg IV x 1 dose given; pending MRI Brain w/ wo contrast. Recommend q1 hour neurochecks. 08/19 it was noted that patient's seizure activity subsided therefore was not transferred to tertiary care 08/21 noted to have a focal seizure when neurology was examining the patient, given Ativan x1 and started on a third antiepileptic. Transfer to [facility] reinitiated today. Discussed [facility] neurology - patient will need intubation and sedation. Discussed with anesthesia and binding cementer french cord. Transfer order placed. Vent bundle ordered. -08/22. Patient intubated this AM. Had another episode of seizure early AM as per RN prior to intubation. Neurology currently following. Patient is on Depak ote, Keppra, fosphenytoin and Vimpat. -08/23. Repeat EEG done on 08/22 shows significant improvement. Neurology to reevaluate. (2) Schizoaffective disorder Current Visit: Yes Status: Chronic Plan to address problem: Patient admitted catatonic state and is nonverbal and not following commands Psychiatric consult completed; does not recommend inpatient at this time Haldol as needed, Depakote, Zyprexa Supportive care (3) Hyponatremia Current Visit: Yes Status: Resolved Plan to address problem: Admit sodium 142 07/31 134, slight hyponatremia at this time no intervention needed, 08/01 Na 136 however she has remained hyponatremic Hydration with free water flush; 50ml q6 hours while hyponatremic-> informed RN on 08/06 08/07 sodium 136 08/09 sodium 135 Trend BMP 08/10 sodium 141 08/15 sodium 134; informed RN FWF are ordered to be 50 mL every 6 while hyponatremic 08/16 sodium 131, nutrition notes reviewed and FWF seems to be changed 100 mL q4 hours 08/17 sodium 134 08/20 hyponatremia resolved (4) Metabolic encephalopathy Current Visit: Yes Status: Acute Plan to address problem: Multifactorial , schizoaffective disorder and withdrawal seizures 07/11 CT head Normal nonenhanced CT scan of the brain Patient came from [place], psych evaluation noted Psych recommends outpt f/u 08/14 neurology consult: Recommends obtaining EEG, LP, CTA head, MRI brain with and without contrast 08/15 CT head shows no acute abnormalities and no changes since 07/11/202008/16: LP under fluoroscopy completed. CSF analysis shows no evidence of encephalitis 08/16 MRI brain with/without contrast pending: Shows no acute abnormalities Supportive care -Now on multiple antiseizure medications. Intubated and sedated. (5) Hypochloremia Current Visit: Yes Status: Resolved Plan to address problem: 07/31 chloride 97, 08/02 chloride 97.9, 08/06 chloride 97.0, 08/07 chloride 97.0, 08/09 chloride 98, 08/16 Cl 91.6, 08/20 Cl 94, 08/21 resolved Patient on tube feedings with FWF We will continue to monitor Trend BMP (6) Discharge planning issues Current Visit: Yes Status: Acute Plan to address problem: Patient's identity is not confirmed [facility] Department has been contacted to aid in identification however unsuccessful [facility] Department have been contacted Inpatient records requested from [facility] again on 08/02 Risk-management made aware of patient again on 08/02 Patient identification confirmed with [facility] Department Attempted to contact children, CM has an email address and an email was sent over the weekend however there is been no reply 08/07: 2 physician consent for PEG tube obtained and GI consulted for PEG tube placement 08/09: PEG tube placed, resume tube feeds within 4 hours [facility] in the process of assuming guardianship over the patient for placement 08/14 ethics consulted 08/17 Dr. Nails requested a transfer to another facility for continuous EEG as the patient may be in status epilepticus. Patient seizures reportedly improved and transfer was initiated 08/21 transfer to [facility] initiated today as patient still having seizure episodes. -08/22. Patient denied transfer to [facility]. [facility] accepting patient accepts trauma/burn or stroke patients. [facility] does not have a continuous EEG monitor. -08/23. Transfer initiated to [facility] today. Still no available beds at [facility] (7) Leukocytosis Current Visit: Yes Status: Acute Plan to address problem: -Patient started on broad-spectrum antibiotics on 08/21 -Chest x-ray shows bilateral infiltrates -Check procalcitonin (7) DVT prophylaxis Current Visit: Yes Status: Acute Plan to address problem: SCDs to bilateral lower extremities while in bed Heparin subcu History Interval history: See assessment and plan Hospitalist Physical - Physical exam Narrative exam: VITAL SIGNS: Reviewed. GENERAL: Sedated and intubated HEAD: No signs of head trauma. EYES: Pupils are equal. MOUTH: Orotracheal tube NECK: No adenopathy, no JVD. CHEST: Diminished breath sounds CARDIAC: Regular rate and rhythm. S1 and S2, without murmurs, gallops, or rubs. VASCULAR: Slight edema ABDOMEN: Soft, non tender and non distended. No rebound or guarding, and no masses palpated. Bowel Sounds normal. NEUROLOGIC EXAM: Sedated SKIN: No obvious lesions - Constitutional Vitals: Temp Pulse Resp BP Pulse Ox 99 F 107 H 20 105/67 100 08/23/20 08:00 08/23/20 11:45 08/23/20 12:00 08/23/20 12:00 08/23/20 12:00 HEART Score - HEART Score Risk factors: 1-2 risk factors Troponin: Troponin T < 0.010 ng/mL (0.00-0.029) 07/11/20 21:17 Troponin: < normal limit - Critical Actions Critical Actions: 0-3 pts:0.9-1.7%risk of adverse cardiac event.Candidate for discharge Results - Labs CBC & Chem 7: 08/23/20 09:39 08/23/20 09:39 Labs: Laboratory Last Values WBC 15.4 K/mm3 (4.5-11.0) H 08/23/20 09:39 RBC 3.34 M/mm3 (3.65-5.03) L 08/23/20 09:39 Hgb 10.8 gm/dl (10.1-14.3) 08/23/20 09:39 Hct 32.3 % (30.3-42.9) 08/23/20 09:39 MCV 97 fl (79-97) 08/23/20 09:39 MCH 32 pg (28-32) 08/23/20 09:39 MCHC 33 % (30-34) 08/23/20 09:39 RDW 15.2 % (13.2-15.2) 08/23/20 09:39 Plt Count 424 K/mm3 (140-440) 08/23/20 09:39 Lymph % (Auto) 12.8 % (13.4-35.0) L 08/22/20 15:30 [place] % (Auto) 4.2 % (0.0-7.3) 08/22/20 15:30 Eos % (Auto) 0.4 % (0.0-4.3) 08/22/20 15:30 Baso % (Auto) 0.3 % (0.0-1.8) 08/22/20 15:30 Lymph # (Auto) 1.5 K/mm3 (1.2-5.4) 08/22/20 15:30 [place] # (Auto) 0.5 K/mm3 (0.0-0.8) 08/22/20 15:30 Eos # (Auto) 0.1 K/mm3 (0.0-0.4) 08/22/20 15:30 Baso # (Auto) 0.0 K/mm3 (0.0-0.1) 08/22/20 15:30 Seg Neutrophils % 82.3 % (40.0-70.0) H 08/22/20 15:30 Seg Neutrophils # 9.9 K/mm3 (1.8-7.7) H 08/22/20 15:30 PT 12.5 Sec. (12.2-14.9) 08/15/20 15:26 INR 0.92 (0.87-1.13) 08/15/20 15:26 APTT 20.4 Sec. (24.2-36.6) L 08/15/20 15:26 ABG pH 7.550 pH Units (7.350-7.450) H 08/23/20 04:55 POC ABG pCO2 32.9 mmHg (32.0-48.0) 08/22/20 11:18 ABG pCO2 24.1 mm Hg 08/23/20 04:55 POC ABG pO2 143.5 mmHg (83-108) H 08/22/20 11:18 ABG pO2 92.2 mm Hg (80.0-90.0) H 08/23/20 04:55 POC ABG HCO3 26.1 08/22/20 11:18 ABG HCO3 20.7 mmol/L (20.0-26.0) 08/23/20 04:55 ABG O2 Saturation 97.7 % (95.0-99.0) 08/23/20 04:55 ABG O2 Content 20.5 (0.0-44) 08/23/20 04:55 POC ABG Base Excess 3.6 08/22/20 11:18 ABG Base Excess 0.2 mmol/L (-2.0-3.0) 08/23/20 04:55 ABG Hemoglobin 15.2 gm/dl (12.0-16.0) 08/23/20 04:55 ABG Oxyhemoglobin 98.9 (94-98) H 08/22/20 11:18 ABG Carboxyhemoglobin 1.1 % (0.0-5.0) 08/23/20 04:55 ABG Methemoglobin 0.6 % (0.0-1.5) 08/23/20 04:55 ABG Sodium 135.9 mmol/L (136.0-145.0) L 08/22/20 11:18 ABG Potassium 3.2 mmol/L (3.40-4.50) L 08/22/20 11:18 ABG Chloride 104.0 mmol/L (98-107) 08/22/20 11:18 ABG Glucose 123 mg/dL (65-95) H 08/22/20 11:18 Oxyhemoglobin 96.0 % (95.0-99.0) 08/23/20 04:55 Carboxyhemoglobin 0.4 (0.5-1.5) L 08/22/20 11:18 FiO2 30 % 08/23/20 04:55 Sodium 136 mmol/L (137-145) L 08/23/20 09:39 Potassium 3.3 mmol/L (3.6-5.0) L 08/23/20 09:39 Chloride 101.6 mmol/L (98-107) 08/23/20 09:39 Carbon Dioxide 25 mmol/L (22-30) 08/23/20 09:39 Anion Gap 13 mmol/L 08/23/20 09:39 BUN 19 mg/dL (7-17) H 08/23/20 09:39 Creatinine 0.2 mg/dL (0.6-1.2) L 08/23/20 09:39 Estimated GFR > 60 ml/min 08/23/20 09:39 BUN/Creatinine Ratio 95 % 08/23/20 09:39 Glucose 134 mg/dL (65-100) H 08/23/20 09:39 POC Glucose 129 mg/dL (70-105) H 08/23/20 11:42 Lactic Acid 1.50 mmol/L (0.7-2.0) 07/12/20 00:04 Phosphorus 3.10 mg/dL (2.5-4.5) 07/24/20 06:00 Magnesium 2.10 mg/dL (1.7-2.3) 07/24/20 06:00 Calcium 8.0 mg/dL (8.4-10.2) L 08/23/20 09:39 Direct Bilirubin < 0.2 mg/dL (0-0.2) 07/13/20 09:33 Ammonia 28.0 umol/L (25-60) 07/11/20 21:17 Total Bilirubin < 0.20 mg/dL (0.1-1.2) 08/23/20 09:39 Total Creatine Kinase 102 units/L (30-135) 07/17/20 05:21 CK-MB (CK-2) 9.2 ng/mL (0.0-4.0) H 07/12/20 15:13 AST 56 units/L (5-40) H 08/23/20 09:39 ALT 34 units/L (7-56) 08/23/20 09:39 CK-MB (CK-2) Rel Index 0.4 (0-4) 07/12/20 15:13 Alkaline Phosphatase 67 units/L (35-129) 08/23/20 09:39 Troponin T < 0.010 ng/mL (0.00-0.029) 07/11/20 21:17 Total Protein 6.0 g/dL (6.3-8.2) L 08/23/20 09:39 Albumin 2.4 g/dL (3.9-5) L 08/23/20 09:39 Albumin/Globulin Ratio 0.7 % 08/23/20 09:39 Procalcitonin 2.78 ng/mL (<0.15) 08/22/20 15:30 Arterial Blood Glucose 123 mg/dL (65-95) H 08/22/20 11:18 Arterial Blood Ionized Calcium 4.5 mg/dL (4.6-5.3) L 08/22/20 11:18 Urine Color Yellow (Yellow) 08/22/20 Unknown Urine Turbidity Clear (Clear) 08/22/20 Unknown Urine pH 7.0 (5.0-7.0) 08/22/20 Unknown Ur Specific [place] 1.017 (1.003-1.030) 08/22/20 Unknown Urine Protein <15 mg/dl mg/dL (Negative) 08/22/20 Unknown Urine Glucose (UA) Neg mg/dL (Negative) 08/22/20 Unknown Urine Ketones Tr mg/dL (Negative) 08/22/20 Unknown Urine Blood Neg (Negative) 08/22/20 Unknown Urine Nitrite Neg (Negative) 08/22/20 Unknown Urine Bilirubin Neg (Negative) 08/22/20 Unknown Urine Urobilinogen < 2.0 mg/dL (<2.0) 08/22/20 Unknown Ur Leukocyte Esterase Neg (Negative) 08/22/20 Unknown Urine WBC (Auto) 7.0 /HPF (0.0-6.0) H 08/22/20 Unknown Urine RBC (Auto) 1.0 /HPF (0.0-6.0) 08/22/20 Unknown U Epithel Cells (Auto) 3.0 /HPF (0-13.0) 08/22/20 Unknown Urine Mucus Few /HPF 08/22/20 Unknown CSF Appearance Clear 08/16/20 14:18 CSF Color Colorless 08/16/20 14:18 CSF WBC 6 /mm3 (1-10) 08/16/20 14:18 CSF RBC 4 /mm3 (0-0) 08/16/20 14:18 CSF Seg Neutrophils 0 % (0-6) 08/16/20 14:18 CSF Lymphocytes % 90.0 % (40-80) 08/16/20 14:18 CSF Reactive Lymphs 0 % 08/16/20 14:18 CSF Monocytes % 10.0 % (15-45) 08/16/20 14:18 CSF Eosinophils % 0 % 08/16/20 14:18 CSF Basophils 0 % 08/16/20 14:18 CSF Pathologist Review C 08/16/20 14:18 CSF Glucose 60 mg/dL 08/16/20 14:18 CSF Total Protein 94 mg/dL 08/16/20 14:18 CSF VDRL Nonreactive (Nonreactive) 08/16/20 14:18 Salicylates < 0.3 mg/dL (2.8-20.0) L 07/11/20 21:17 Urine Opiates Screen Presumptive negative 07/11/20 Unknown Urine Methadone Screen Presumptive negative 07/11/20 Unknown Acetaminophen 5.0 ug/mL (10.0-30.0) L 07/11/20 21:17 Ur Barbiturates Screen Presumptive negative 07/11/20 Unknown Ur Phencyclidine Scrn Presumptive negative 07/11/20 Unknown Phenytoin 13.0 ug/mL (10.0-20.0) 08/23/20 09:39 Ur Amphetamines Screen Presumptive negative 07/11/20 Unknown Valproic Acid 52.9 ug/mL (50-100) 08/23/20 09:39 U Benzodiazepines Scrn Presumptive negative 07/11/20 Unknown Urine Cocaine Screen Presumptive negative 07/11/20 Unknown U Marijuana (THC) Screen Presumptive negative 07/11/20 Unknown Drugs of Abuse Note Disclamer 07/11/20 Unknown C. difficile Tox (PCR) Positive (Negative) 07/19/20 18:51 Enterovirus (PCR) Cmid 08/16/20 14:18 Microbiology: Microbiology 08/22/20 11:38 Tracheal Aspirate Sputum Culture - Preliminary Ledesma/IV: Voiding Method Indwelling Catheter IV Catheter Type [Right Upper PICC Line arm] IV Catheter Type [Right INT / Saline Lock Antecubital] IV Catheter Type [Left Forearm INT / Saline Lock ] IV Catheter Type [Right Hand] INT / Saline Lock IV Catheter Type [Right INT / Saline Lock Forearm] IV Catheter Type [Left Hand] INT / Saline Lock Active Medications - Current Medications Current Medications: Generic Name Dose Route Start Last Admin Trade Name Freq PRN Reason Stop Dose Admin Acetaminophen 650 mg 07/12/20 01:05 07/27/20 01:57 Tylenol MN 650 mg Q4H PRN Administration Fever >101 Lipase/Protease/Amylase 1 each 07/22/20 07:44 08/14/20 10:25 Pancreaztye Sprague 10,500 Unit FEEDTUBE 1 each PRN PRN Administration For Clogged Feeding Tube Famotidine 20 mg 08/23/20 10:00 08/23/20 10:49 Pepcid PO 20 mg BID KEITH Administration Haloperidol Lactate 5 mg 07/18/20 13:15 07/21/20 22:06 Haldol IM 5 mg Q6H PRN Administration Agitation Heparin Sodium (Porcine) 5,000 unit 07/12/20 10:00 08/23/20 10:53 Heparin SUB-Q 5,000 unit Q8H KEITH Administration Hydrophilic Ointment 1 applic 08/21/20 18:21 Vaseline Lip Therapy TP Q2HR PRN Dry Lips Cefepime HCl 2 gm in 100 mls @ 200 mls/hr 08/20/20 06:00 08/23/20 06:34 Cefepime/Ns 2 Gm/100 Ml IV 08/26/20 23:59 200 mls/hr Q8HR KEITH Administration Vancomycin HCl 1 gm in 250 mls @ 166.667 mls/hr 08/20/20 22:00 08/23/20 05:00 Vancomycin/Ns 1 Gm/250 Ml IV 08/26/20 23:59 166.667 mls/hr Q18H KEITH Administration Propofol 1,000 mg in 100 mls @ 1.524 mls/hr 08/21/20 20:00 Diprivan 10 Mg/Ml IV TITR KEITH Protocol 5 MCG/KG/MIN Dopamine HCl/Dextrose 800 mg in 250 mls @ 1.905 mls/hr 08/22/20 05:00 08/22/20 13:40 Intropin Drip 800 Mg/D5w 250 Ml IV 2 mcg/kg/min TITR KEITH 1.905 mls/hr Titration Protocol 2 MCG/KG/MIN Phenytoin 100 mg/ Sodium 102 mls @ 408 mls/hr 08/22/20 10:00 08/23/20 06:33 Chloride IV 408 mls/hr Q8HR KEITH Administration Lorazepam 100 mg/ Sodium 100 mls @ 1 mls/hr 08/22/20 12:00 08/22/20 11:51 Chloride/ Miscellaneous IV 1 mg/hr Information TITR KEITH 1 mls/hr Administration Protocol 1 MG/HR Potassium Chloride 10 meq in 100 mls @ 100 mls/hr 08/23/20 12:00 08/23/20 12:09 Kcl 10meq/100ml IV 08/23/20 15:59 100 mls/hr Q1H KEITH Administration Insulin Human Regular 0 unit 07/23/20 09:00 08/23/20 11:47 Humulin R SUB-Q Not Given Q6HR KEITH Protocol Lacosamide 200 mg 08/21/20 22:00 08/23/20 10:50 Vimpat PO 200 mg Q12HR KEITH Administration Levetiracetam 1,500 mg 08/21/20 22:00 08/23/20 10:49 Keppra PO 1,500 mg BID KEITH Administration Lorazepam 2 mg 08/06/20 05:05 08/22/20 08:05 Ativan IV 2 mg Q4H PRN Administration Agitation Lorazepam 2 mg 08/22/20 11:10 08/22/20 11:18 Ativan IV 2 mg Q10MIN PRN Administration Agitation Megestrol Acetate 400 mg 07/22/20 10:00 08/23/20 10:50 Megestrol PO 400 mg QDAY KEITH Administration Multi-Ingred Cream/Lotion/Oil/Oint 1 applic 08/22/20 11:10 Artificial Tears Ophth Oint OU Q4HR PRN Dry Eye(s) Olanzapine 2.5 mg 07/25/20 22:00 08/22/20 21:05 Zyprexa PO 2.5 mg QHS KEITH Administration Ondansetron HCl 4 mg 07/12/20 01:06 Zofran IV Q8H PRN Nausea And Vomiting Pantoprazole Sodium 40 mg 08/23/20 10:00 08/23/20 10:50 Protonix IV 40 mg QDAY KEITH Administration Simple Syrup 15 ml 07/22/20 07:44 Simple Syrup FEEDTUBE PRN PRN Hypoglycemia Simple Syrup 30 ml 07/22/20 07:44 Simple Syrup FEEDTUBE PRN PRN Hypoglycemia Sodium Bicarbonate 325 mg 07/22/20 07:44 Sodium Bicarbonate FEEDTUBE PRN PRN For Clogged Feeding Tube Valproic Acid 1,000 mg 08/18/20 22:00 08/23/20 10:50 Depakene Liq FEEDTUBE 1,000 mg Q12HR KEITH Administration Nutrition/Malnutrition Assess - Dietary Evaluation Nutrition/Malnutrition Findings: Nutrition Notes Start: 07/12/20 11:40 Freq: Status: Active Protocol: Document 08/22/20 13:06 AL (Rec: 08/22/20 13:14 AL [email or web address]) Co-Sign 08/22/20 13:06 MK Nutrition Notes Initial or Follow up Reassessment Other Pertinent Diagnosis C. diff (+), AMS, Rhabdomyolysis, dehydration, Hx of stroke Current Diet Osmolite at 35ml/hr Labs/Tests BUN 23 Cr 0.2 Pertinent Medications Reviewed Height 5 ft Weight 52.6 kg [place] Body Weight (kg) 45.45 BMI 22.6 Weight Status Appropriate Subjective/Other Information PT TF is running at goal rate. RN reports no issue or concern with feeding. PT intubated. Percent of energy/protein needs met: 100%/90% Burn Absent Trauma Absent GI Symptoms None Current % PO Negligible Minimum of two criteria No Energy Intake (severe) < or equal to 50% Estimated Energy Requirement > or equal to 5 days #1 Nutrition Diagnosis Inadequate oral intake Diagnosis Progress(for reassessment Continues documentation) Is patient on ventilator? Yes Is Patient Ambulatory and/or Out of Bed No REE-([place]-St. Jeor-confined to bed) 1220.220 Calculation [facility] Additional Notes Protein Needs 70-105 g/day (1. 2-2 g/kg) Fluid Needs: 1ml/kcal Nutrition Intervention Change Diet Order: Change TF to Nepro with Carb Steady Nutrition Support: Nepro 1.8 at 30 ml/hr Flush 125 ml q4h Kcal 1,296 Protein (gm) 58 Fluid (mL) 523 Goal #1 TF tolerance Goal #2 Meet at least 75% of total energy and protein needs via TF Anticipated Discharge Needs: Recommend Jevity 1.2 bolus 5 cans/day: Breakfast 2 cans ( 474ml), Lunch 2 cans (474ml), Dinner 1 can (237ml) with flush 100ml before and after bolus. [ End ] Follow-Up By: 08/24/20 Additional Comments FU for TF tolerance, intakes, and labs.
[2020-08-23 12:19] LABS: Hypochromasia Few; Platelet Clumps Few; Platelet Estimate Appears Decreased; Target Cells Rare
--- NOTE | 2020-08-23 18:21 | Progress Note ---
Assessment and Plan 60 yo female with schizoaffective d/o w/ noted akinetic state. 1. Status Epilepticus - noted on 2 EEGs so far; EEG ordered for today until transfer occurs; patient requires transfer to a facility w/ cEEG monitoring for higher level of care as EEG here is intermittently available and intermittently read at present; continue depakote 1000 mg bid; continue Keppra at 1500 mg bid; continue vimpat 200 mg iv q12; agree w/ Versed gtt and titrate to burst suppression w/ at least 1 burst every 10 seconds; normal MRI Brain w/ wo contrast; started on a Versed gtt on 08/22/2020; continue dilantin 100 mg iv/po q8. 2. Therapeutic Drug Monitoring - last depakote level fell from 98 to 52 (?why); depakote 500 mg po/peg x 1 dose bolus ordered; check dilantin/valproic acid levels in AM; check ammonia level in AM. 3. Stroke - unremarkable MRI [facility] w/ wo contrast if no contraindications (s/p whole body Xray for metal and if clear, get MRI); further testing based on imaging findings. 4. Encephalitis - no evidence noted per initial CSF findings. 5. 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 6. Schizoaffective d/o - per psychiatry. Woody Nails MD Neurology Subjective Date of service: 08/23/20 Principal diagnosis: C diff Interval history: Noted improvement but w/ epileptiform discharges on Versed gtt. No continous eeg monitoring available to safely wean patient off the Ativan infusion and to monitor for recurrence of seizures or status epilepticus. Objective - Exam Narrative Exam: Patient not seen today. - Vital Sign Vital Signs - 12hr 08/23/20 08/23/20 08/23/20 06:30 06:45 07:00 Temperature Pulse Rate 112 H 109 H 110 H Pulse Rate [ From Monitor] Respiratory 20 20 20 Rate Blood Pressure 87/50 83/54 107/69 O2 Sat by Pulse 98 99 99 Oximetry 08/23/20 08/23/20 08/23/20 07:15 07:30 07:45 Temperature Pulse Rate 110 H 111 H 111 H Pulse Rate [ From Monitor] Respiratory 20 20 20 Rate Blood Pressure 92/53 84/49 87/48 O2 Sat by Pulse 98 95 97 Oximetry 08/23/20 08/23/20 08/23/20 08:00 08:15 08:30 Temperature 99 F Pulse Rate 109 H 108 H 104 H Pulse Rate [ 109 H From Monitor] Respiratory 20 21 20 Rate Blood Pressure 84/49 86/48 87/55 O2 Sat by Pulse 96 97 98 Oximetry 08/23/20 08/23/20 08/23/20 08:31 08:45 09:00 Temperature Pulse Rate 108 H 109 H 108 H Pulse Rate [ From Monitor] Respiratory 20 20 Rate Blood Pressure 87/55 94/58 103/67 O2 Sat by Pulse 98 100 100 Oximetry 08/23/20 08/23/20 08/23/20 09:15 09:30 09:45 Temperature Pulse Rate 106 H 105 H 104 H Pulse Rate [ From Monitor] Respiratory 20 21 20 Rate Blood Pressure 94/57 91/59 97/61 O2 Sat by Pulse 98 100 99 Oximetry 08/23/20 08/23/20 08/23/20 10:00 10:15 10:30 Temperature Pulse Rate 103 H 103 H 102 H Pulse Rate [ From Monitor] Respiratory 20 20 20 Rate Blood Pressure 91/63 96/61 92/58 O2 Sat by Pulse 99 99 100 Oximetry 08/23/20 08/23/20 08/23/20 10:45 11:00 11:15 Temperature Pulse Rate 104 H 103 H 105 H Pulse Rate [ From Monitor] Respiratory 20 20 20 Rate Blood Pressure 94/63 100/62 107/70 O2 Sat by Pulse 100 100 99 Oximetry 08/23/20 08/23/20 08/23/20 11:30 11:45 12:00 Temperature 98.5 F Pulse Rate 106 H 107 H 108 H Pulse Rate [ 107 H From Monitor] Respiratory 20 20 20 Rate Blood Pressure 102/66 111/67 105/67 O2 Sat by Pulse 100 100 100 Oximetry 08/23/2008/23/20 08/23/20 12:15 12:23 12:30 Temperature Pulse Rate 107 H 109 H 108 H Pulse Rate [ From Monitor] Respiratory 20 20 Rate Blood Pressure 112/61 112/61 104/64 O2 Sat by Pulse 100 100 100 Oximetry 08/23/2008/23/20 08/23/20 12:45 13:00 13:15 Temperature Pulse Rate 106 H 106 H 106 H Pulse Rate [ From Monitor] Respiratory 20 20 20 Rate Blood Pressure 108/63 111/60 102/61 O2 Sat by Pulse 100 100 100 Oximetry 08/23/20 08/23/20 08/23/20 13:30 13:45 14:00 Temperature Pulse Rate 108 H 108 H 110 H Pulse Rate [ From Monitor] Respiratory 20 20 20 Rate Blood Pressure 108/69 115/72 107/68 O2 Sat by Pulse 100 100 100 Oximetry 08/23/20 08/23/20 08/23/20 14:15 14:30 14:45 Temperature Pulse Rate 110 H 109 H 107 H Pulse Rate [ From Monitor] Respiratory 20 20 20 Rate Blood Pressure 103/58 105/65 103/67 O2 Sat by Pulse 100 100 100 Oximetry 08/23/20 08/23/20 08/23/20 15:00 15:15 15:30 Temperature Pulse Rate 106 H 107 H 107 H Pulse Rate [ From Monitor] Respiratory 20 21 20 Rate Blood Pressure 109/59 109/66 100/58 O2 Sat by Pulse 100 100 100 Oximetry 08/23/20 08/23/20 08/23/20 15:45 16:00 16:15 Temperature 98.6 F Pulse Rate 105 H 106 H 108 H Pulse Rate [ 106 H From Monitor] Respiratory 20 20 20 Rate Blood Pressure 110/60 105/63 134/79 O2 Sat by Pulse 100 100 100 Oximetry 08/23/20 08/23/20 08/23/20 16:22 16:30 16:45 Temperature Pulse Rate 104 H 104 H 104 H Pulse Rate [ From Monitor] Respiratory 20 20 Rate Blood Pressure 134/79 121/69 111/60 O2 Sat by Pulse 100 100 100 Oximetry 08/23/20 08/23/20 17:00 17:15 Temperature Pulse Rate 104 H 102 H Pulse Rate [ From Monitor] Respiratory 20 20 Rate Blood Pressure 99/62 105/61 O2 Sat by Pulse 100 100 Oximetry - Laboratory Findings CBC and BMP: 08/23/20 09:39 08/23/20 09:39 Abnormal Lab Findings: Abnormal Labs 07/11/20 07/11/20 07/11/20 21:17 21:17 21:17 WBC 11.7 H Hgb 14.4 H RBC Hct MCH 35 H MCHC 36 H MCV Plt Count [place] % (Auto) Lymph % (Auto) [place] # Seg Neutrophils % 72.1 H Seg Neutrophils # 8.5 H Lymphocytes % (Manual) Seg Neutrophils # Man Monocytes # (Manual) PT INR APTT ABG pH POC ABG pCO2 POC ABG pO2 ABG pO2 ABG HCO3 ABG Base Excess ABG Hemoglobin ABG Oxyhemoglobin ABG Sodium ABG Potassium ABG Glucose Oxyhemoglobin Carboxyhemoglobin Sodium Potassium 3.5 L Chloride Carbon Dioxide BUN 20 H Creatinine 0.5 L Glucose 122 H POC Glucose Calcium Phosphorus Magnesium AST 86 H ALT 68 H Total Creatine Kinase 1998 H CK-MB (CK-2) Total Protein Albumin Arterial Blood Glucose Arterial Blood Ionized Calcium Urine WBC (Auto) Salicylates < 0.3 L Acetaminophen Valproic Acid Phenytoin 07/11/20 07/12/20 07/12/20 21:17 06:26 15:13 WBC Hgb RBC Hct MCH MCHC MCV Plt Count [place] % (Auto) Lymph % (Auto) [place] # Seg Neutrophils % Seg Neutrophils # Lymphocytes % (Manual) Seg Neutrophils # Man Monocytes # (Manual) PT INR APTT ABG pH POC ABG pCO2 POC ABG pO2 ABG pO2 ABG HCO3 ABG Base Excess ABG Hemoglobin ABG Oxyhemoglobin ABG Sodium ABG Potassium ABG Glucose Oxyhemoglobin Carboxyhemoglobin Sodium Potassium Chloride Carbon Dioxide BUN Creatinine Glucose POC Glucose Calcium Phosphorus Magnesium AST ALT Total Creatine Kinase 1888 H 1852 H CK-MB (CK-2) 14.8 H 9.2 H Total Protein Albumin Arterial Blood Glucose Arterial Blood Ionized Calcium Urine WBC (Auto) Salicylates Acetaminophen 5.0 L Valproic Acid Phenytoin 07/13/20 07/13/20 07/14/20 09:33 09:33 01:52 WBC Hgb RBC Hct MCH MCHC MCV Plt Count [place] % (Auto) Lymph % (Auto) [place] # Seg Neutrophils % Seg Neutrophils # Lymphocytes % (Manual) Seg Neutrophils # Man Monocytes # (Manual) PT INR APTT ABG pH POC ABG pCO2 POC ABG pO2 ABG pO2 ABG HCO3 ABG Base Excess ABG Hemoglobin ABG Oxyhemoglobin ABG Sodium ABG Potassium ABG Glucose Oxyhemoglobin Carboxyhemoglobin Sodium Potassium 2.8 L* 3.2 L Chloride 107.9 H Carbon Dioxide BUN Creatinine 0.3 L Glucose POC Glucose Calcium 7.9 L D Phosphorus Magnesium AST 83 H ALT Total Creatine Kinase 1678 H CK-MB (CK-2) Total Protein 5.3 L D Albumin 3.0 L Arterial Blood Glucose Arterial Blood Ionized Calcium Urine WBC (Auto) Salicylates Acetaminophen Valproic Acid Phenytoin 07/14/20 07/15/20 07/16/20 15:48 05:55 08:26 WBC Hgb RBC Hct MCH MCHC MCV Plt Count [place] % (Auto) Lymph % (Auto) [place] # Seg Neutrophils % Seg Neutrophils # Lymphocytes % (Manual) Seg Neutrophils # Man Monocytes # (Manual) PT INR APTT ABG pH POC ABG pCO2 POC ABG pO2 ABG pO2 ABG HCO3 ABG Base Excess ABG Hemoglobin ABG Oxyhemoglobin ABG Sodium ABG Potassium ABG Glucose Oxyhemoglobin Carboxyhemoglobin Sodium Potassium 2.7 L* 3.1 L Chloride 108.0 H Carbon Dioxide 16 L D 14 L BUN 4 L Creatinine 0.3 L 0.3 L Glucose POC Glucose Calcium 8.3 L Phosphorus 2.40 L Magnesium AST ALT Total Creatine Kinase 828 H 425 H 188 H CK-MB (CK-2) Total Protein Albumin Arterial Blood Glucose Arterial Blood Ionized Calcium Urine WBC (Auto) Salicylates Acetaminophen Valproic Acid Phenytoin 07/17/20 07/17/20 07/18/20 05:21 05:21 05:53 WBC 12.1 H 11.6 H Hgb RBC Hct MCH MCHC MCV Plt Count [place] % (Auto) 7.9 H Lymph % (Auto) [place] # 0.9 H Seg Neutrophils % 70.7 H Seg Neutrophils # 8.2 H Lymphocytes % (Manual) Seg Neutrophils # Man Monocytes # (Manual) PT INR APTT ABG pH POC ABG pCO2 POC ABG pO2 ABG pO2 ABG HCO3 ABG Base Excess ABG Hemoglobin ABG Oxyhemoglobin ABG Sodium ABG Potassium ABG Glucose Oxyhemoglobin Carboxyhemoglobin Sodium Potassium 3.2 L Chloride Carbon Dioxide BUN Creatinine Glucose POC Glucose Calcium Phosphorus 2.40 L Magnesium AST ALT Total Creatine Kinase CK-MB (CK-2) Total Protein Albumin Arterial Blood Glucose Arterial Blood Ionized Calcium Urine WBC (Auto) Salicylates Acetaminophen Valproic Acid Phenytoin 07/18/20 07/19/20 07/19/20 05:53 08:12 08:12 WBC Hgb RBC Hct MCH 33 H MCHC 35 H MCV Plt Count [place] % (Auto) Lymph % (Auto) [place] # Seg Neutrophils % Seg Neutrophils # Lymphocytes % (Manual) Seg Neutrophils # Man Monocytes # (Manual) PT INR APTT ABG pH POC ABG pCO2 POC ABG pO2 ABG pO2 ABG HCO3 ABG Base Excess ABG Hemoglobin ABG Oxyhemoglobin ABG Sodium ABG Potassium ABG Glucose Oxyhemoglobin Carboxyhemoglobin Sodium Potassium Chloride 108.3 H Carbon Dioxide 17 L BUN 5 L Creatinine 0.3 L Glucose POC Glucose Calcium 8.3 L Phosphorus 2.30 L Magnesium AST ALT Total Creatine Kinase CK-MB (CK-2) Total Protein Albumin Arterial Blood Glucose Arterial Blood Ionized Calcium Urine WBC (Auto) Salicylates Acetaminophen Valproic Acid 7.7 L Phenytoin 07/21/20 07/22/20 07/23/20 06:35 06:59 07:27 WBC Hgb RBC Hct MCH MCHC MCV Plt Count [place] % (Auto) Lymph % (Auto) [place] # Seg Neutrophils % Seg Neutrophils # Lymphocytes % (Manual) Seg Neutrophils # Man Monocytes # (Manual) PT INR APTT ABG pH POC ABG pCO2 POC ABG pO2 ABG pO2 ABG HCO3 ABG Base Excess ABG Hemoglobin ABG Oxyhemoglobin ABG Sodium ABG Potassium ABG Glucose Oxyhemoglobin Carboxyhemoglobin Sodium 146 H Potassium 2.0 L* D 2.2 L* Chloride Carbon Dioxide 32 H BUN 2 L < 1 L < 1 L Creatinine 0.2 L 0.2 L 0.4 L D Glucose 139 H 130 H 574 H* POC Glucose Calcium 8.0 L 7.0 L D Phosphorus Magnesium 1.60 L AST ALT Total Creatine Kinase CK-MB (CK-2) Total Protein Albumin Arterial Blood Glucose Arterial Blood Ionized Calcium Urine WBC (Auto) Salicylates Acetaminophen Valproic Acid Phenytoin 07/23/20 07/23/20 07/23/20 10:58 11:16 16:50 WBC Hgb RBC Hct MCH MCHC MCV Plt Count [place] % (Auto) Lymph % (Auto) [place] # Seg Neutrophils % Seg Neutrophils # Lymphocytes % (Manual) Seg Neutrophils # Man Monocytes # (Manual) PT INR APTT ABG pH POC ABG pCO2 POC ABG pO2 ABG pO2 ABG HCO3 ABG Base Excess ABG Hemoglobin ABG Oxyhemoglobin ABG Sodium ABG Potassium ABG Glucose Oxyhemoglobin Carboxyhemoglobin Sodium 146 H Potassium 3.5 L D Chloride Carbon Dioxide 31 H BUN 2 L Creatinine 0.2 L Glucose 112 H POC Glucose 111 H 137 H Calcium 8.3 L D Phosphorus Magnesium AST ALT Total Creatine Kinase CK-MB (CK-2) Total Protein Albumin Arterial Blood Glucose Arterial Blood Ionized Calcium Urine WBC (Auto) Salicylates Acetaminophen Valproic Acid Phenytoin 07/23/20 07/24/20 07/24/20 22:33 06:00 08:47 WBC Hgb RBC Hct MCH MCHC MCV Plt Count [place] % (Auto) Lymph % (Auto) [place] # Seg Neutrophils % Seg Neutrophils # Lymphocytes % (Manual) Seg Neutrophils # Man Monocytes # (Manual) PT INR APTT ABG pH POC ABG pCO2 POC ABG pO2 ABG pO2 ABG HCO3 ABG Base Excess ABG Hemoglobin ABG Oxyhemoglobin ABG Sodium ABG Potassium ABG Glucose Oxyhemoglobin Carboxyhemoglobin Sodium 146 H Potassium 3.0 L Chloride Carbon Dioxide 31 H BUN Creatinine 0.3 L Glucose 140 H POC Glucose 153 H 118 H Calcium Phosphorus Magnesium AST ALT Total Creatine Kinase CK-MB (CK-2) Total Protein Albumin Arterial Blood Glucose Arterial Blood Ionized Calcium Urine WBC (Auto) Salicylates Acetaminophen Valproic Acid Phenytoin 07/24/20 07/24/20 07/25/20 12:04 17:34 05:58 WBC Hgb RBC Hct MCH MCHC MCV Plt Count [place] % (Auto) Lymph % (Auto) [place] # Seg Neutrophils % Seg Neutrophils # Lymphocytes % (Manual) Seg Neutrophils # Man Monocytes # (Manual) PT INR APTT ABG pH POC ABG pCO2 POC ABG pO2 ABG pO2 ABG HCO3 ABG Base Excess ABG Hemoglobin ABG Oxyhemoglobin ABG Sodium ABG Potassium ABG Glucose Oxyhemoglobin Carboxyhemoglobin Sodium Potassium Chloride Carbon Dioxide BUN Creatinine Glucose POC Glucose 126 H 146 H 141 H Calcium Phosphorus Magnesium AST ALT Total Creatine Kinase CK-MB (CK-2) Total Protein Albumin Arterial Blood Glucose Arterial Blood Ionized Calcium Urine WBC (Auto) Salicylates Acetaminophen Valproic Acid Phenytoin 07/25/20 07/25/20 07/25/20 08:09 09:53 12:07 WBC Hgb RBC Hct MCH MCHC MCV Plt Count [place] % (Auto) Lymph % (Auto) [place] # Seg Neutrophils % Seg Neutrophils # Lymphocytes % (Manual) Seg Neutrophils # Man Monocytes # (Manual) PT INR APTT ABG pH POC ABG pCO2 POC ABG pO2 ABG pO2 ABG HCO3 ABG Base Excess ABG Hemoglobin ABG Oxyhemoglobin ABG Sodium ABG Potassium ABG Glucose Oxyhemoglobin Carboxyhemoglobin Sodium Potassium Chloride Carbon Dioxide BUN Creatinine 0.2 L Glucose 115 H POC Glucose 138 H 131 H Calcium 8.2 L Phosphorus Magnesium AST ALT Total Creatine Kinase CK-MB (CK-2) Total Protein Albumin Arterial Blood Glucose Arterial Blood Ionized Calcium Urine WBC (Auto) Salicylates Acetaminophen Valproic Acid Phenytoin 07/25/20 07/25/20 07/26/20 17:35 22:31 05:43 WBC Hgb RBC Hct MCH MCHC MCV Plt Count [place] % (Auto) Lymph % (Auto) [place] # Seg Neutrophils % Seg Neutrophils # Lymphocytes % (Manual) Seg Neutrophils # Man Monocytes # (Manual) PT INR APTT ABG pH POC ABG pCO2 POC ABG pO2 ABG pO2 ABG HCO3 ABG Base Excess ABG Hemoglobin ABG Oxyhemoglobin ABG Sodium ABG Potassium ABG Glucose Oxyhemoglobin Carboxyhemoglobin Sodium Potassium Chloride Carbon Dioxide BUN Creatinine Glucose POC Glucose 125 H 130 H 153 H Calcium Phosphorus Magnesium AST ALT Total Creatine Kinase CK-MB (CK-2) Total Protein Albumin Arterial Blood Glucose Arterial Blood Ionized Calcium Urine WBC (Auto) Salicylates Acetaminophen Valproic Acid Phenytoin 07/26/20 07/26/20 07/26/20 07:30 07:30 12:01 WBC Hgb RBC Hct MCH 33 H MCHC MCV Plt Count 464 H [place] % (Auto) Lymph % (Auto) [place] # Seg Neutrophils % 71.4 H Seg Neutrophils # Lymphocytes % (Manual) Seg Neutrophils # Man Monocytes # (Manual) PT INR APTT ABG pH POC ABG pCO2 POC ABG pO2 ABG pO2 ABG HCO3 ABG Base Excess ABG Hemoglobin ABG Oxyhemoglobin ABG Sodium ABG Potassium ABG Glucose Oxyhemoglobin Carboxyhemoglobin Sodium Potassium Chloride Carbon Dioxide BUN Creatinine 0.3 L Glucose 144 H POC Glucose 134 H Calcium Phosphorus Magnesium AST ALT Total Creatine Kinase CK-MB (CK-2) Total Protein Albumin Arterial Blood Glucose Arterial Blood Ionized Calcium Urine WBC (Auto) Salicylates Acetaminophen Valproic Acid Phenytoin 07/26/20 07/27/20 07/27/20 17:08 06:11 09:25 WBC Hgb RBC Hct MCH MCHC MCV Plt Count [place] % (Auto) Lymph % (Auto) [place] # Seg Neutrophils % Seg Neutrophils # Lymphocytes % (Manual) Seg Neutrophils # Man Monocytes # (Manual) PT INR APTT ABG pH POC ABG pCO2 POC ABG pO2 ABG pO2 ABG HCO3 ABG Base Excess ABG Hemoglobin ABG Oxyhemoglobin ABG Sodium ABG Potassium ABG Glucose Oxyhemoglobin Carboxyhemoglobin Sodium 136 L Potassium Chloride Carbon Dioxide BUN Creatinine 0.3 L Glucose 120 H POC Glucose 106 H 128 H Calcium Phosphorus Magnesium AST ALT Total Creatine Kinase CK-MB (CK-2) Total Protein Albumin Arterial Blood Glucose Arterial Blood Ionized Calcium Urine WBC (Auto) Salicylates Acetaminophen Valproic Acid Phenytoin 07/27/20 07/27/20 07/27/20 12:51 17:41 23:40 WBC Hgb RBC Hct MCH MCHC MCV Plt Count [place] % (Auto) Lymph % (Auto) [place] # Seg Neutrophils % Seg Neutrophils # Lymphocytes % (Manual) Seg Neutrophils # Man Monocytes # (Manual) PT INR APTT ABG pH POC ABG pCO2 POC ABG pO2 ABG pO2 ABG HCO3 ABG Base Excess ABG Hemoglobin ABG Oxyhemoglobin ABG Sodium ABG Potassium ABG Glucose Oxyhemoglobin Carboxyhemoglobin Sodium Potassium Chloride Carbon Dioxide BUN Creatinine Glucose POC Glucose 124 H 111 H 148 H Calcium Phosphorus Magnesium AST ALT Total Creatine Kinase CK-MB (CK-2) Total Protein Albumin Arterial Blood Glucose Arterial Blood Ionized Calcium Urine WBC (Auto) Salicylates Acetaminophen Valproic Acid Phenytoin 07/28/20 07/28/20 07/28/20 05:00 06:14 11:25 WBC Hgb RBC Hct MCH MCHC MCV Plt Count [place] % (Auto) Lymph % (Auto) [place] # Seg Neutrophils % Seg Neutrophils # Lymphocytes % (Manual) Seg Neutrophils # Man Monocytes # (Manual) PT INR APTT ABG pH POC ABG pCO2 POC ABG pO2 ABG pO2 ABG HCO3 ABG Base Excess ABG Hemoglobin ABG Oxyhemoglobin ABG Sodium ABG Potassium ABG Glucose Oxyhemoglobin Carboxyhemoglobin Sodium 135 L Potassium 5.1 H Chloride Carbon Dioxide 21 L BUN Creatinine 0.3 L Glucose 131 H POC Glucose 161 H 143 H Calcium Phosphorus Magnesium AST ALT Total Creatine Kinase CK-MB (CK-2) Total Protein Albumin Arterial Blood Glucose Arterial Blood Ionized Calcium Urine WBC (Auto) Salicylates Acetaminophen Valproic Acid Phenytoin 07/28/20 07/28/20 07/29/20 18:06 23:53 05:36 WBC Hgb RBC Hct MCH MCHC MCV Plt Count [place] % (Auto) Lymph % (Auto) [place] # Seg Neutrophils % Seg Neutrophils # Lymphocytes % (Manual) Seg Neutrophils # Man Monocytes # (Manual) PT INR APTT ABG pH POC ABG pCO2 POC ABG pO2 ABG pO2 ABG HCO3 ABG Base Excess ABG Hemoglobin ABG Oxyhemoglobin ABG Sodium ABG Potassium ABG Glucose Oxyhemoglobin Carboxyhemoglobin Sodium Potassium Chloride Carbon Dioxide BUN Creatinine 0.3 L Glucose 149 H POC Glucose 160 H 118 H Calcium Phosphorus Magnesium AST ALT Total Creatine Kinase CK-MB (CK-2) Total Protein Albumin Arterial Blood Glucose Arterial Blood Ionized Calcium Urine WBC (Auto) Salicylates Acetaminophen Valproic Acid Phenytoin 07/29/20 07/29/20 07/29/20 06:46 12:08 17:29 WBC Hgb RBC Hct MCH MCHC MCV Plt Count [place] % (Auto) Lymph % (Auto) [place] # Seg Neutrophils % Seg Neutrophils # Lymphocytes % (Manual) Seg Neutrophils # Man Monocytes # (Manual) PT INR APTT ABG pH POC ABG pCO2 POC ABG pO2 ABG pO2 ABG HCO3 ABG Base Excess ABG Hemoglobin ABG Oxyhemoglobin ABG Sodium ABG Potassium ABG Glucose Oxyhemoglobin Carboxyhemoglobin Sodium Potassium Chloride Carbon Dioxide BUN Creatinine Glucose POC Glucose 119 H 126 H 148 H Calcium Phosphorus Magnesium AST ALT Total Creatine Kinase CK-MB (CK-2) Total Protein Albumin Arterial Blood Glucose Arterial Blood Ionized Calcium Urine WBC (Auto) Salicylates Acetaminophen Valproic Acid Phenytoin 07/29/20 07/30/20 07/30/20 23:49 05:48 17:48 WBC Hgb RBC Hct MCH MCHC MCV Plt Count [place] % (Auto) Lymph % (Auto) [place] # Seg Neutrophils % Seg Neutrophils # Lymphocytes % (Manual) Seg Neutrophils # Man Monocytes # (Manual) PT INR APTT ABG pH POC ABG pCO2 POC ABG pO2 ABG pO2 ABG HCO3 ABG Base Excess ABG Hemoglobin ABG Oxyhemoglobin ABG Sodium ABG Potassium ABG Glucose Oxyhemoglobin Carboxyhemoglobin Sodium Potassium Chloride Carbon Dioxide BUN Creatinine Glucose POC Glucose 119 H 119 H 110 H Calcium Phosphorus Magnesium AST ALT Total Creatine Kinase CK-MB (CK-2) Total Protein Albumin Arterial Blood Glucose Arterial Blood Ionized Calcium Urine WBC (Auto) Salicylates Acetaminophen Valproic Acid Phenytoin 07/31/20 07/31/20 07/31/20 11:55 12:34 17:18 WBC Hgb RBC Hct MCH MCHC MCV Plt Count [place] % (Auto) Lymph % (Auto) [place] # Seg Neutrophils % Seg Neutrophils # Lymphocytes % (Manual) Seg Neutrophils # Man Monocytes # (Manual) PT INR APTT ABG pH POC ABG pCO2 POC ABG pO2 ABG pO2 ABG HCO3 ABG Base Excess ABG Hemoglobin ABG Oxyhemoglobin ABG Sodium ABG Potassium ABG Glucose Oxyhemoglobin Carboxyhemoglobin Sodium 134 L Potassium Chloride 97.0 L Carbon Dioxide 21 L BUN 19 H Creatinine 0.3 L Glucose 116 H POC Glucose 119 H 124 H Calcium Phosphorus Magnesium AST ALT Total Creatine Kinase CK-MB (CK-2) Total Protein Albumin Arterial Blood Glucose Arterial Blood Ionized Calcium Urine WBC (Auto) Salicylates Acetaminophen Valproic Acid Phenytoin 07/31/20 08/01/20 08/01/20 23:30 06:22 06:45 WBC Hgb RBC Hct MCH MCHC MCV Plt Count [place] % (Auto) Lymph % (Auto) [place] # Seg Neutrophils % Seg Neutrophils # Lymphocytes % (Manual) Seg Neutrophils # Man Monocytes # (Manual) PT INR APTT ABG pH POC ABG pCO2 POC ABG pO2 ABG pO2 ABG HCO3 ABG Base Excess ABG Hemoglobin ABG Oxyhemoglobin ABG Sodium ABG Potassium ABG Glucose Oxyhemoglobin Carboxyhemoglobin Sodium 136 L Potassium Chloride 97.9 L Carbon Dioxide BUN Creatinine 0.3 L Glucose 122 H POC Glucose 138 H 123 H Calcium Phosphorus Magnesium AST ALT Total Creatine Kinase CK-MB (CK-2) Total Protein Albumin Arterial Blood Glucose Arterial Blood Ionized Calcium Urine WBC (Auto) Salicylates Acetaminophen Valproic Acid Phenytoin 08/01/20 08/02/20 08/02/20 18:17 00:51 06:48 WBC Hgb RBC Hct MCH MCHC MCV Plt Count [place] % (Auto) Lymph % (Auto) [place] # Seg Neutrophils % Seg Neutrophils # Lymphocytes % (Manual) Seg Neutrophils # Man Monocytes # (Manual) PT INR APTT ABG pH POC ABG pCO2 POC ABG pO2 ABG pO2 ABG HCO3 ABG Base Excess ABG Hemoglobin ABG Oxyhemoglobin ABG Sodium ABG Potassium ABG Glucose Oxyhemoglobin Carboxyhemoglobin Sodium Potassium Chloride Carbon Dioxide BUN Creatinine Glucose POC Glucose 111 H 109 H 123 H Calcium Phosphorus Magnesium AST ALT Total Creatine Kinase CK-MB (CK-2) Total Protein Albumin Arterial Blood Glucose Arterial Blood Ionized Calcium Urine WBC (Auto) Salicylates Acetaminophen Valproic Acid Phenytoin 08/02/20 08/02/20 08/02/20 12:51 17:55 22:18 WBC Hgb RBC Hct MCH MCHC MCV Plt Count [place] % (Auto) Lymph % (Auto) [place] # Seg Neutrophils % Seg Neutrophils # Lymphocytes % (Manual) Seg Neutrophils # Man Monocytes # (Manual) PT INR APTT ABG pH POC ABG pCO2 POC ABG pO2 ABG pO2 ABG HCO3 ABG Base Excess ABG Hemoglobin ABG Oxyhemoglobin ABG Sodium ABG Potassium ABG Glucose Oxyhemoglobin Carboxyhemoglobin Sodium Potassium Chloride Carbon Dioxide BUN Creatinine Glucose POC Glucose 135 H 119 H 117 H Calcium Phosphorus Magnesium AST ALT Total Creatine Kinase CK-MB (CK-2) Total Protein Albumin Arterial Blood Glucose Arterial Blood Ionized Calcium Urine WBC (Auto) Salicylates Acetaminophen Valproic Acid Phenytoin 08/03/20 08/03/20 08/03/20 05:45 06:05 12:15 WBC Hgb RBC Hct MCH MCHC MCV Plt Count [place] % (Auto) Lymph % (Auto) [place] # Seg Neutrophils % Seg Neutrophils # Lymphocytes % (Manual) Seg Neutrophils # Man Monocytes # (Manual) PT INR APTT ABG pH POC ABG pCO2 POC ABG pO2 ABG pO2 ABG HCO3 ABG Base Excess ABG Hemoglobin ABG Oxyhemoglobin ABG Sodium ABG Potassium ABG Glucose Oxyhemoglobin Carboxyhemoglobin Sodium 135 L Potassium 5.4 H D Chloride 96.2 L Carbon Dioxide BUN Creatinine 0.4 L Glucose 117 H POC Glucose 109 H 127 H Calcium Phosphorus Magnesium AST ALT Total Creatine Kinase CK-MB (CK-2) Total Protein Albumin Arterial Blood Glucose Arterial Blood Ionized Calcium Urine WBC (Auto) Salicylates Acetaminophen Valproic Acid Phenytoin 08/03/20 08/03/20 08/04/20 17:00 22:35 05:59 WBC Hgb RBC Hct MCH MCHC MCV Plt Count [place] % (Auto) Lymph % (Auto) [place] # Seg Neutrophils % Seg Neutrophils # Lymphocytes % (Manual) Seg Neutrophils # Man Monocytes # (Manual) PT INR APTT ABG pH POC ABG pCO2 POC ABG pO2 ABG pO2 ABG HCO3 ABG Base Excess ABG Hemoglobin ABG Oxyhemoglobin ABG Sodium ABG Potassium ABG Glucose Oxyhemoglobin Carboxyhemoglobin Sodium Potassium Chloride Carbon Dioxide BUN Creatinine Glucose POC Glucose 117 H 114 H 115 H Calcium Phosphorus Magnesium AST ALT Total Creatine Kinase CK-MB (CK-2) Total Protein Albumin Arterial Blood Glucose Arterial Blood Ionized Calcium Urine WBC (Auto) Salicylates Acetaminophen Valproic Acid Phenytoin 08/04/20 08/04/20 08/05/20 17:00 23:58 06:33 WBC Hgb RBC Hct MCH MCHC MCV Plt Count [place] % (Auto) Lymph % (Auto) [place] # Seg Neutrophils % Seg Neutrophils # Lymphocytes % (Manual) Seg Neutrophils # Man Monocytes # (Manual) PT INR APTT ABG pH POC ABG pCO2 POC ABG pO2 ABG pO2 ABG HCO3 ABG Base Excess ABG Hemoglobin ABG Oxyhemoglobin ABG Sodium ABG Potassium ABG Glucose Oxyhemoglobin Carboxyhemoglobin Sodium Potassium Chloride Carbon Dioxide BUN Creatinine Glucose POC Glucose 123 H 110 H 115 H Calcium Phosphorus Magnesium AST ALT Total Creatine Kinase CK-MB (CK-2) Total Protein Albumin Arterial Blood Glucose Arterial Blood Ionized Calcium Urine WBC (Auto) Salicylates Acetaminophen Valproic Acid Phenytoin 08/06/20 08/06/20 08/07/20 08:59 12:27 00:39 WBC Hgb RBC Hct MCH MCHC MCV Plt Count [place] % (Auto) Lymph % (Auto) [place] # Seg Neutrophils % Seg Neutrophils # Lymphocytes % (Manual) Seg Neutrophils # Man Monocytes # (Manual) PT INR APTT ABG pH POC ABG pCO2 POC ABG pO2 ABG pO2 ABG HCO3 ABG Base Excess ABG Hemoglobin ABG Oxyhemoglobin ABG Sodium ABG Potassium ABG Glucose Oxyhemoglobin Carboxyhemoglobin Sodium 133 L Potassium Chloride 97.0 L Carbon Dioxide BUN Creatinine 0.3 L Glucose 130 H POC Glucose 112 H 55 L Calcium Phosphorus Magnesium AST 63 H ALT Total Creatine Kinase CK-MB (CK-2) Total Protein Albumin 3.8 L Arterial Blood Glucose Arterial Blood Ionized Calcium Urine WBC (Auto) Salicylates Acetaminophen Valproic Acid Phenytoin 08/07/20 08/07/20 08/07/20 05:36 07:19 07:19 WBC Hgb 15.2 H RBC Hct 45.5 H MCH 33 H MCHC MCV Plt Count 663 H [place] % (Auto) Lymph % (Auto) [place] # Seg Neutrophils % Seg Neutrophils # Lymphocytes % (Manual) Seg Neutrophils # Man Monocytes # (Manual) PT INR APTT ABG pH POC ABG pCO2 POC ABG pO2 ABG pO2 ABG HCO3 ABG Base Excess ABG Hemoglobin ABG Oxyhemoglobin ABG Sodium ABG Potassium ABG Glucose Oxyhemoglobin Carboxyhemoglobin Sodium 136 L Potassium Chloride 97.9 L Carbon Dioxide BUN Creatinine 0.3 L Glucose 123 H POC Glucose 118 H Calcium Phosphorus Magnesium AST ALT Total Creatine Kinase CK-MB (CK-2) Total Protein Albumin Arterial Blood Glucose Arterial Blood Ionized Calcium Urine WBC (Auto) Salicylates Acetaminophen Valproic Acid Phenytoin 08/07/20 08/08/20 08/08/20 15:47 05:24 11:42 WBC Hgb RBC Hct MCH MCHC MCV Plt Count [place] % (Auto) Lymph % (Auto) [place] # Seg Neutrophils % Seg Neutrophils # Lymphocytes % (Manual) Seg Neutrophils # Man Monocytes # (Manual) PT 11.7 L INR 0.84 L APTT ABG pH POC ABG pCO2 POC ABG pO2 ABG pO2 ABG HCO3 ABG Base Excess ABG Hemoglobin ABG Oxyhemoglobin ABG Sodium ABG Potassium ABG Glucose Oxyhemoglobin Carboxyhemoglobin Sodium Potassium Chloride Carbon Dioxide BUN Creatinine Glucose POC Glucose 115 H 113 H Calcium Phosphorus Magnesium AST ALT Total Creatine Kinase CK-MB (CK-2) Total Protein Albumin Arterial Blood Glucose Arterial Blood Ionized Calcium Urine WBC (Auto) Salicylates Acetaminophen Valproic Acid Phenytoin 08/08/20 08/09/20 08/09/20 22:24 07:05 07:05 WBC Hgb RBC Hct MCH 34 H MCHC 36 H MCV Plt Count 539 H [place] % (Auto) Lymph % (Auto) [place] # Seg Neutrophils % Seg Neutrophils # Lymphocytes % (Manual) Seg Neutrophils # Man Monocytes # (Manual) PT INR APTT ABG pH POC ABG pCO2 POC ABG pO2 ABG pO2 ABG HCO3 ABG Base Excess ABG Hemoglobin ABG Oxyhemoglobin ABG Sodium ABG Potassium ABG Glucose Oxyhemoglobin Carboxyhemoglobin Sodium 135 L Potassium 5.2 H Chloride Carbon Dioxide BUN Creatinine 0.4 L Glucose POC Glucose 109 H Calcium Phosphorus Magnesium AST ALT Total Creatine Kinase CK-MB (CK-2) Total Protein Albumin Arterial Blood Glucose Arterial Blood Ionized Calcium Urine WBC (Auto) Salicylates Acetaminophen Valproic Acid Phenytoin 08/09/20 08/10/20 08/11/20 23:30 13:00 12:10 WBC Hgb RBC Hct MCH MCHC MCV Plt Count [place] % (Auto) Lymph % (Auto) [place] # Seg Neutrophils % Seg Neutrophils # Lymphocytes % (Manual) Seg Neutrophils # Man Monocytes # (Manual) PT INR APTT ABG pH POC ABG pCO2 POC ABG pO2 ABG pO2 ABG HCO3 ABG Base Excess ABG Hemoglobin ABG Oxyhemoglobin ABG Sodium ABG Potassium ABG Glucose Oxyhemoglobin Carboxyhemoglobin Sodium Potassium Chloride Carbon Dioxide 21 L BUN Creatinine 0.3 L Glucose POC Glucose 208 H 118 H Calcium Phosphorus Magnesium AST ALT Total Creatine Kinase CK-MB (CK-2) Total Protein Albumin Arterial Blood Glucose Arterial Blood Ionized Calcium Urine WBC (Auto) Salicylates Acetaminophen Valproic Acid Phenytoin 08/11/20 08/11/20 08/12/20 17:49 23:31 06:18 WBC Hgb RBC Hct MCH MCHC MCV Plt Count [place] % (Auto) Lymph % (Auto) [place] # Seg Neutrophils % Seg Neutrophils # Lymphocytes % (Manual) Seg Neutrophils # Man Monocytes # (Manual) PT INR APTT ABG pH POC ABG pCO2 POC ABG pO2 ABG pO2 ABG HCO3 ABG Base Excess ABG Hemoglobin ABG Oxyhemoglobin ABG Sodium ABG Potassium ABG Glucose Oxyhemoglobin Carboxyhemoglobin Sodium Potassium Chloride Carbon Dioxide BUN Creatinine Glucose POC Glucose 139 H 133 H 132 H Calcium Phosphorus Magnesium AST ALT Total Creatine Kinase CK-MB (CK-2) Total Protein Albumin Arterial Blood Glucose Arterial Blood Ionized Calcium Urine WBC (Auto) Salicylates Acetaminophen Valproic Acid Phenytoin 08/12/20 08/12/20 08/13/20 12:17 16:40 00:17 WBC Hgb RBC Hct MCH MCHC MCV Plt Count [place] % (Auto) Lymph % (Auto) [place] # Seg Neutrophils % Seg Neutrophils # Lymphocytes % (Manual) Seg Neutrophils # Man Monocytes # (Manual) PT INR APTT ABG pH POC ABG pCO2 POC ABG pO2 ABG pO2 ABG HCO3 ABG Base Excess ABG Hemoglobin ABG Oxyhemoglobin ABG Sodium ABG Potassium ABG Glucose Oxyhemoglobin Carboxyhemoglobin Sodium Potassium Chloride Carbon Dioxide BUN Creatinine Glucose POC Glucose 124 H 109 H 128 H Calcium Phosphorus Magnesium AST ALT Total Creatine Kinase CK-MB (CK-2) Total Protein Albumin Arterial Blood Glucose Arterial Blood Ionized Calcium Urine WBC (Auto) Salicylates Acetaminophen Valproic Acid Phenytoin 08/13/20 08/13/20 08/13/20 06:18 16:50 22:40 WBC Hgb RBC Hct MCH MCHC MCV Plt Count [place] % (Auto) Lymph % (Auto) [place] # Seg Neutrophils % Seg Neutrophils # Lymphocytes % (Manual) Seg Neutrophils # Man Monocytes # (Manual) PT INR APTT ABG pH POC ABG pCO2 POC ABG pO2 ABG pO2 ABG HCO3 ABG Base Excess ABG Hemoglobin ABG Oxyhemoglobin ABG Sodium ABG Potassium ABG Glucose Oxyhemoglobin Carboxyhemoglobin Sodium Potassium Chloride Carbon Dioxide BUN Creatinine Glucose POC Glucose 115 H 119 H 109 H Calcium Phosphorus Magnesium AST ALT Total Creatine Kinase CK-MB (CK-2) Total Protein Albumin Arterial Blood Glucose Arterial Blood Ionized Calcium Urine WBC (Auto) Salicylates Acetaminophen Valproic Acid Phenytoin 08/14/20 08/14/20 08/15/20 05:13 12:03 09:24 WBC Hgb RBC Hct MCH MCHC MCV Plt Count [place] % (Auto) Lymph % (Auto) [place] # Seg Neutrophils % Seg Neutrophils # Lymphocytes % (Manual) Seg Neutrophils # Man Monocytes # (Manual) PT INR APTT ABG pH POC ABG pCO2 POC ABG pO2 ABG pO2 ABG HCO3 ABG Base Excess ABG Hemoglobin ABG Oxyhemoglobin ABG Sodium ABG Potassium ABG Glucose Oxyhemoglobin Carboxyhemoglobin Sodium 134 L Potassium Chloride Carbon Dioxide 14 L D BUN Creatinine 0.3 L Glucose 121 H POC Glucose 122 H 126 H Calcium Phosphorus Magnesium AST ALT Total Creatine Kinase CK-MB (CK-2) Total Protein Albumin Arterial Blood Glucose Arterial Blood Ionized Calcium Urine WBC (Auto) Salicylates Acetaminophen Valproic Acid Phenytoin 08/15/20 08/15/20 08/15/20 12:03 15:26 17:08 WBC Hgb RBC Hct MCH MCHC MCV Plt Count [place] % (Auto) Lymph % (Auto) [place] # Seg Neutrophils % Seg Neutrophils # Lymphocytes % (Manual) Seg Neutrophils # Man Monocytes # (Manual) PT INR APTT 20.4 L ABG pH POC ABG pCO2 POC ABG pO2 ABG pO2 ABG HCO3 ABG Base Excess ABG Hemoglobin ABG Oxyhemoglobin ABG Sodium ABG Potassium ABG Glucose Oxyhemoglobin Carboxyhemoglobin Sodium Potassium Chloride Carbon Dioxide BUN Creatinine Glucose POC Glucose 108 H 137 H Calcium Phosphorus Magnesium AST ALT Total Creatine Kinase CK-MB (CK-2) Total Protein Albumin Arterial Blood Glucose Arterial Blood Ionized Calcium Urine WBC (Auto) Salicylates Acetaminophen Valproic Acid Phenytoin 08/15/20 08/16/20 08/16/20 23:11 11:56 11:56 WBC Hgb RBC Hct MCH MCHC MCV Plt Count [place] % (Auto) Lymph % (Auto) [place] # Seg Neutrophils % Seg Neutrophils # Lymphocytes % (Manual) Seg Neutrophils # Man Monocytes # (Manual) PT INR APTT ABG pH POC ABG pCO2 POC ABG pO2 ABG pO2 ABG HCO3 ABG Base Excess ABG Hemoglobin ABG Oxyhemoglobin ABG Sodium ABG Potassium ABG Glucose Oxyhemoglobin Carboxyhemoglobin Sodium 131 L Potassium Chloride 91.6 L Carbon Dioxide BUN Creatinine 0.3 L Glucose 169 H POC Glucose 152 H Calcium Phosphorus Magnesium AST ALT Total Creatine Kinase CK-MB (CK-2) Total Protein Albumin Arterial Blood Glucose Arterial Blood Ionized Calcium Urine WBC (Auto) Salicylates Acetaminophen Valproic Acid Phenytoin 8.9 L 08/16/20 08/17/20 08/17/20 16:45 04:48 05:26 WBC Hgb RBC Hct MCH MCHC MCV Plt Count [place] % (Auto) Lymph % (Auto) [place] # Seg Neutrophils % Seg Neutrophils # Lymphocytes % (Manual) Seg Neutrophils # Man Monocytes # (Manual) PT INR APTT ABG pH POC ABG pCO2 POC ABG pO2 ABG pO2 ABG HCO3 ABG Base Excess ABG Hemoglobin ABG Oxyhemoglobin ABG Sodium ABG Potassium ABG Glucose Oxyhemoglobin Carboxyhemoglobin Sodium 134 L Potassium Chloride 94.4 L Carbon Dioxide BUN Creatinine 0.3 L Glucose 122 H POC Glucose 125 H 122 H Calcium Phosphorus Magnesium AST ALT Total Creatine Kinase CK-MB (CK-2) Total Protein Albumin Arterial Blood Glucose Arterial Blood Ionized Calcium Urine WBC (Auto) Salicylates Acetaminophen Valproic Acid Phenytoin 08/17/20 08/17/20 08/18/20 16:30 19:39 00:59 WBC Hgb RBC Hct MCH MCHC MCV Plt Count [place] % (Auto) Lymph % (Auto) [place] # Seg Neutrophils % Seg Neutrophils # Lymphocytes % (Manual) Seg Neutrophils # Man Monocytes # (Manual) PT INR APTT ABG pH POC ABG pCO2 POC ABG pO2 ABG pO2 ABG HCO3 ABG Base Excess ABG Hemoglobin ABG Oxyhemoglobin ABG Sodium ABG Potassium ABG Glucose Oxyhemoglobin Carboxyhemoglobin Sodium 133 L Potassium Chloride 94.0 L Carbon Dioxide BUN Creatinine 0.2 L Glucose 125 H POC Glucose 126 H 120 H Calcium Phosphorus Magnesium AST ALT Total Creatine Kinase CK-MB (CK-2) Total Protein Albumin Arterial Blood Glucose Arterial Blood Ionized Calcium Urine WBC (Auto) Salicylates Acetaminophen Valproic Acid Phenytoin 08/18/20 08/18/20 08/19/20 07:13 17:23 00:48 WBC Hgb RBC Hct MCH MCHC MCV Plt Count [place] % (Auto) Lymph % (Auto) [place] # Seg Neutrophils % Seg Neutrophils # Lymphocytes % (Manual) Seg Neutrophils # Man Monocytes # (Manual) PT INR APTT ABG pH POC ABG pCO2 POC ABG pO2 ABG pO2 ABG HCO3 ABG Base Excess ABG Hemoglobin ABG Oxyhemoglobin ABG Sodium ABG Potassium ABG Glucose Oxyhemoglobin Carboxyhemoglobin Sodium Potassium Chloride Carbon Dioxide BUN Creatinine Glucose POC Glucose 127 H 109 H 116 H Calcium Phosphorus Magnesium AST ALT Total Creatine Kinase CK-MB (CK-2) Total Protein Albumin Arterial Blood Glucose Arterial Blood Ionized Calcium Urine WBC (Auto) Salicylates Acetaminophen Valproic Acid Phenytoin 08/19/20 08/19/20 08/19/20 11:14 16:54 21:29 WBC Hgb RBC Hct MCH MCHC MCV Plt Count [place] % (Auto) Lymph % (Auto) [place] # Seg Neutrophils % Seg Neutrophils # Lymphocytes % (Manual) Seg Neutrophils # Man Monocytes # (Manual) PT INR APTT ABG pH 7.478 H POC ABG pCO2 POC ABG pO2 ABG pO2 68.2 L ABG HCO3 18.8 L ABG Base Excess -2.9 L ABG Hemoglobin ABG Oxyhemoglobin ABG Sodium ABG Potassium ABG Glucose Oxyhemoglobin 93.8 L Carboxyhemoglobin Sodium Potassium Chloride Carbon Dioxide BUN Creatinine Glucose POC Glucose 110 H 113 H Calcium Phosphorus Magnesium AST ALT Total Creatine Kinase CK-MB (CK-2) Total Protein Albumin Arterial Blood Glucose Arterial Blood Ionized Calcium Urine WBC (Auto) Salicylates Acetaminophen Valproic Acid Phenytoin 08/19/20 08/20/20 08/20/20 23:53 00:12 01:52 WBC Hgb RBC Hct MCH MCHC MCV Plt Count [place] % (Auto) Lymph % (Auto) [place] # Seg Neutrophils % Seg Neutrophils # Lymphocytes % (Manual) Seg Neutrophils # Man Monocytes # (Manual) PT INR APTT ABG pH 7.496 H 7.562 H POC ABG pCO2 21.8 L 21.0 L POC ABG pO2 123.7 H ABG pO2 ABG HCO3 ABG Base Excess ABG Hemoglobin ABG Oxyhemoglobin ABG Sodium 133.1 L 133.9 L ABG Potassium 4.7 H ABG Glucose 202 H 151 H Oxyhemoglobin Carboxyhemoglobin Sodium Potassium Chloride Carbon Dioxide BUN Creatinine Glucose POC Glucose 183 H Calcium Phosphorus Magnesium AST ALT Total Creatine Kinase CK-MB (CK-2) Total Protein Albumin Arterial Blood Glucose 202 H 151 H Arterial Blood Ionized Calcium 4.4 L Urine WBC (Auto) Salicylates Acetaminophen Valproic Acid Phenytoin 08/20/20 08/20/20 08/20/20 06:19 09:31 12:33 WBC Hgb RBC Hct MCH MCHC MCV Plt Count [place] % (Auto) Lymph % (Auto) [place] # Seg Neutrophils % Seg Neutrophils # Lymphocytes % (Manual) Seg Neutrophils # Man Monocytes # (Manual) PT INR APTT ABG pH POC ABG pCO2 POC ABG pO2 ABG pO2 ABG HCO3 ABG Base Excess ABG Hemoglobin ABG Oxyhemoglobin ABG Sodium ABG Potassium ABG Glucose Oxyhemoglobin Carboxyhemoglobin Sodium Potassium 5.2 H Chloride Carbon Dioxide BUN 34 H Creatinine Glucose 149 H POC Glucose 124 H 109 H Calcium 8.3 L Phosphorus Magnesium AST ALT Total Creatine Kinase CK-MB (CK-2) Total Protein Albumin Arterial Blood Glucose Arterial Blood Ionized Calcium Urine WBC (Auto) Salicylates Acetaminophen Valproic Acid Phenytoin 08/20/20 08/21/20 08/21/20 18:26 00:58 05:21 WBC Hgb RBC Hct MCH MCHC MCV Plt Count [place] % (Auto) Lymph % (Auto) [place] # Seg Neutrophils % Seg Neutrophils # Lymphocytes % (Manual) Seg Neutrophils # Man Monocytes # (Manual) PT INR APTT ABG pH POC ABG pCO2 POC ABG pO2 ABG pO2 ABG HCO3 ABG Base Excess ABG Hemoglobin ABG Oxyhemoglobin ABG Sodium ABG Potassium ABG Glucose Oxyhemoglobin Carboxyhemoglobin Sodium Potassium Chloride Carbon Dioxide BUN Creatinine Glucose POC Glucose 133 H 143 H 106 H Calcium Phosphorus Magnesium AST ALT Total Creatine Kinase CK-MB (CK-2) Total Protein Albumin Arterial Blood Glucose Arterial Blood Ionized Calcium Urine WBC (Auto) Salicylates Acetaminophen Valproic Acid Phenytoin 08/21/20 08/21/20 08/21/20 05:41 11:41 18:15 WBC Hgb RBC Hct MCH MCHC MCV Plt Count [place] % (Auto) Lymph % (Auto) [place] # Seg Neutrophils % Seg Neutrophils # Lymphocytes % (Manual) Seg Neutrophils # Man Monocytes # (Manual) PT INR APTT ABG pH 7.513 H POC ABG pCO2 POC ABG pO2 ABG pO2 ABG HCO3 26.2 H ABG Base Excess 3.4 H ABG Hemoglobin 10.5 L ABG Oxyhemoglobin ABG Sodium ABG Potassium ABG Glucose Oxyhemoglobin Carboxyhemoglobin Sodium Potassium Chloride Carbon Dioxide BUN 23 H Creatinine 0.2 L D Glucose 102 H POC Glucose 138 H Calcium 8.2 L Phosphorus Magnesium AST ALT Total Creatine Kinase CK-MB (CK-2) Total Protein Albumin Arterial Blood Glucose Arterial Blood Ionized Calcium Urine WBC (Auto) Salicylates Acetaminophen Valproic Acid Phenytoin 08/21/20 08/22/20 08/22/20 18:38 05:41 11:18 WBC 20.8 H Hgb RBC 3.51 L Hct MCH 33 H MCHC MCV Plt Count [place] % (Auto) Lymph % (Auto) [place] # Seg Neutrophils % Seg Neutrophils # Lymphocytes % (Manual) Seg Neutrophils # Man Monocytes # (Manual) PT INR APTT ABG pH 7.518 H POC ABG pCO2 POC ABG pO2 143.5 H ABG pO2 ABG HCO3 ABG Base Excess ABG Hemoglobin ABG Oxyhemoglobin 98.9 H ABG Sodium 135.9 L ABG Potassium 3.2 L ABG Glucose 123 H Oxyhemoglobin Carboxyhemoglobin 0.4 L Sodium Potassium Chloride Carbon Dioxide BUN Creatinine Glucose POC Glucose 108 H Calcium Phosphorus Magnesium AST ALT Total Creatine Kinase CK-MB (CK-2) Total Protein Albumin Arterial Blood Glucose 123 H Arterial Blood Ionized Calcium 4.5 L Urine WBC (Auto) Salicylates Acetaminophen Valproic Acid Phenytoin 08/22/20 08/22/20 08/22/20 13:08 13:20 15:30 WBC 12.1 H Hgb RBC 3.27 L Hct MCH 33 H MCHC MCV 98 H Plt Count 442 H [place] % (Auto) Lymph % (Auto) 12.8 L [place] # Seg Neutrophils % 82.3 H Seg Neutrophils # 9.9 H Lymphocytes % (Manual) Seg Neutrophils # Man Monocytes # (Manual) PT INR APTT ABG pH POC ABG pCO2 POC ABG pO2 ABG pO2 ABG HCO3 ABG Base Excess ABG Hemoglobin ABG Oxyhemoglobin ABG Sodium ABG Potassium ABG Glucose Oxyhemoglobin Carboxyhemoglobin Sodium Potassium Chloride Carbon Dioxide BUN Creatinine Glucose POC Glucose 144 H Calcium Phosphorus Magnesium AST ALT Total Creatine Kinase CK-MB (CK-2) Total Protein Albumin Arterial Blood Glucose Arterial Blood Ionized Calcium Urine WBC (Auto) Salicylates Acetaminophen Valproic Acid Phenytoin 8.4 L 08/22/20 08/22/20 08/22/20 15:30 18:42 Unknown WBC Hgb RBC Hct MCH MCHC MCV Plt Count [place] % (Auto) Lymph % (Auto) [place] # Seg Neutrophils % Seg Neutrophils # Lymphocytes % (Manual) Seg Neutrophils # Man Monocytes # (Manual) PT INR APTT ABG pH POC ABG pCO2 POC ABG pO2 ABG pO2 ABG HCO3 ABG Base Excess ABG Hemoglobin ABG Oxyhemoglobin ABG Sodium ABG Potassium ABG Glucose Oxyhemoglobin Carboxyhemoglobin Sodium Potassium 3.5 L Chloride Carbon Dioxide BUN Creatinine 0.2 L Glucose 148 H POC Glucose 149 H Calcium 7.7 L Phosphorus Magnesium AST 60 H ALT Total Creatine Kinase CK-MB (CK-2) Total Protein 5.3 L Albumin 2.6 L Arterial Blood Glucose Arterial Blood Ionized Calcium Urine WBC (Auto) 7.0 H Salicylates Acetaminophen Valproic Acid Phenytoin 08/23/20 08/23/20 08/23/20 00:19 04:55 09:39 WBC 15.4 H Hgb RBC 3.34 L Hct MCH MCHC MCV Plt Count [place] % (Auto) Lymph % (Auto) [place] # Seg Neutrophils % Seg Neutrophils # Lymphocytes % (Manual) 12.0 L Seg Neutrophils # Man 10.2 H Monocytes # (Manual) 0.9 H PT INR APTT ABG pH 7.550 H POC ABG pCO2 POC ABG pO2 ABG pO2 92.2 H ABG HCO3 ABG Base Excess ABG Hemoglobin ABG Oxyhemoglobin ABG Sodium ABG Potassium ABG Glucose Oxyhemoglobin Carboxyhemoglobin Sodium Potassium Chloride Carbon Dioxide BUN Creatinine Glucose POC Glucose 124 H Calcium Phosphorus Magnesium AST ALT Total Creatine Kinase CK-MB (CK-2) Total Protein Albumin Arterial Blood Glucose Arterial Blood Ionized Calcium Urine WBC (Auto) Salicylates Acetaminophen Valproic Acid Phenytoin 08/23/20 08/23/20 08/23/20 09:39 11:42 17:42 WBC Hgb RBC Hct MCH MCHC MCV Plt Count [place] % (Auto) Lymph % (Auto) [place] # Seg Neutrophils % Seg Neutrophils # Lymphocytes % (Manual) Seg Neutrophils # Man Monocytes # (Manual) PT INR APTT ABG pH POC ABG pCO2 POC ABG pO2 ABG pO2 ABG HCO3 ABG Base Excess ABG Hemoglobin ABG Oxyhemoglobin ABG Sodium ABG Potassium ABG Glucose Oxyhemoglobin Carboxyhemoglobin Sodium 136 L Potassium 3.3 L Chloride Carbon Dioxide BUN 19 H Creatinine 0.2 L Glucose 134 H POC Glucose 129 H 138 H Calcium 8.0 L Phosphorus Magnesium AST 56 H ALT Total Creatine Kinase CK-MB (CK-2) Total Protein 6.0 L Albumin 2.4 L Arterial Blood Glucose Arterial Blood Ionized Calcium Urine WBC (Auto) Salicylates Acetaminophen Valproic Acid Phenytoin
[2020-08-23] MEDS ORDERED: DIVALPROEX DR 500 MG TAB PO ONE (18:30)
[2020-08-24] MEDS: INSULIN REGULAR, HUMAN 100 UNIT/ML 3ML VIAL SUB-Q SCH ×4 (01:44→17:46)
--- NOTE | 2020-08-24 02:47 | XRay Report ---
CHEST 1 VIEW INDICATION / CLINICAL INFORMATION: follow up respiratory failure. COMPARISON: 08/23/2020, FINDINGS: SUPPORT DEVICES: Unchanged HEART / MEDIASTINUM: No significant abnormality. LUNGS / PLEURA: The lungs appear unchanged.. No pneumothorax. ADDITIONAL FINDINGS: No significant additional findings. IMPRESSION: 1. No significant change. Signer Name: Bj Meyers MD Signed: 08/24/2020 2:43 AM Workstation Name: [id number]
[2020-08-24] MEDS: HEPARIN 5,000 UNIT/1 ML VIAL SUB-Q SCH ×3 (02:59→21:58)
[2020-08-24] MEDS: CEFEPIME/NS 2 GM/100 ML 2 GM/100 ML BAG IV SCH (05:23)
[2020-08-24] MEDS: PHENYTOIN 100 MG in SODIUM CHLORIDE 0.9% 100 ML IV SCH ×3 (05:23→21:59)
[2020-08-24 07:26] LABS: Blood Urea Nitrogen 11 mg/dL (7-17); Calcium 7.9 mg/dL (8.4-10.2); Hemolysis Index 34
[2020-08-24 07:37] LABS: BUN/Creatinine Ratio 55
[2020-08-24] MEDS: ACETAMINOPHEN 325 MG/10.15 ML ORAL LIQD UNIT DOSE PO PRN ×2 (08:38→15:06)
[2020-08-24] MEDS: VALPROIC ACID 250 MG/5 ML ORAL LIQD FEEDTUBE SCH ×2 (09:51→21:58)
[2020-08-24] MEDS: MEGESTROL 400 MG/10 ML ORAL LIQD PO SCH (09:51)
[2020-08-24] MEDS: PANTOPRAZOLE 40 MG INJ IV SCH (09:51)
[2020-08-24] MEDS: levETIRAcetam 500 MG/5 ML ORAL LIQD PO SCH ×2 (09:51→21:58)
[2020-08-24] MEDS: LACOSAMIDE 100 MG TAB PO SCH ×2 (09:51→21:58)
[2020-08-24] MEDS ORDERED: VANCOMYCIN/NS 1 GM/250 ML 1 GM/250 ML BAG IV SCH (10:00)
[2020-08-24 10:20] LABS: Hematocrit 30.7 % (30.3-42.9); Hemoglobin 10.3 gm/dl (10.1-14.3); Mean Corpuscular HGB Conc 34 % (30-34); Mean Corpuscular Volume 96 fl (79-97); Platelet Count 357 K/mm3 (140-440); Red Blood Count 3.22 M/mm3 (3.65-5.03); Red Cell Distribution Width 15.3 % (13.2-15.2)
[2020-08-24 10:51] LABS: Alanine Aminotransferase 33 units/L (7-56); Albumin 2.4 g/dL (3.9-5); Blood Urea Nitrogen 12 mg/dL (7-17); Calcium 7.6 mg/dL (8.4-10.2); Hemolysis Index 0
[2020-08-24 10:52] LABS: BUN/Creatinine Ratio 60
[2020-08-24 11:24] LABS: Band Neutrophils # (Manual) 0.6 K/mm3; Basophils % (Manual) 0 % (0.0-1.8); Total Cells Counted 100
[2020-08-24 11:25] LABS: Anisocytosis 1+; Platelet Estimate Consistent w Auto
--- NOTE | 2020-08-24 14:32 | Progress Note ---
Assessment and Plan Assessment and plan: 60-year-old female patient with schizoaffective disorder with active hallucinations and confusion presented from [place] for altered mental status and poor intake on 07/13. She was found to have rhabdomyolysis and electrolyte imbalances. She then developed C. difficile diarrhea and she has completed her regimen of p.o. vancomycin from 07/20-08/03. RN stated patient had to liquid bowel movements today however patient is on vancomycin. Per policy if patient has the decreased BMs she was not a C. difficile sample. At the time of my exam this afternoon the patient was in her usual state with no focal seizure activity noted. However this evening when neurology examined her she was noted to have another seizure and was given Ativan IV. Antiepileptic medications adjusted. Dr. Nails spoke to Dr. Taylor about need to transfer for continuous EEG. He also recommended every hour neurochecks and intubation. Stat ABG ordered. 07/13; patient's CK levels trending down on 1678, continue IV hydration patient is more alert at times, hallucinating, Noncommunicative, severe hypokalemia, replace per protocol 07/14; potassium level significantly improved today to 3.2, replenish per protocol. CK levels trending down 828, continue IV hydration, monitor electrolytes 07/15; patient refused potassium yesterday today potassium levels again 2.7 We will add KCl to IV fluids, and IV K riders, monitor electrolytes. CK level 425. Refusing to eat confused noncommunicative. Possible inpatient psych admission when medically stable 07/16; rhabdomyolysis resolved, mild electrolyte imbalances, if corrected medic ally stable for inpatient psych placement 07/17: replete K and phosphate. repeat CBc BMP tomorrow. White count needs to be < 10 for inpt psych admission 07/18: cont to have mildly elevated white count, c/o loose stool. will check for C. def - start flagyl and cipro 07/19: White count normal today. change medications to Po. medically stable to go for inpt psych unit. 07/20; positive for C. def. patient not eating properly, refusing meds time to time. Psych now recommended outpt f/u. CM working on placement. Patient remains nonverbal, does not follow any commend and not giving any personal info. 07/21; K 2.0 today, cont to replete, follow BMP, patient remains nonverbal and not cooperative. refuses to eat and meds. cont d51/2NS. if condition doesnot improve will consider TF 07/22: Potassium level persistently remains low, magnesium 1.6 today. Will replete magnesium and potassium. Patient refusing meds and not eating at all per RN report. Totally noncooperative during the encounternot respond to any question. Keeps her eye closing and covering her face with her forearm. Will order for tube feeding and Dobbhoff tube. Continue to follow. We will also add Megace to boost appetite. 07/23: started on TF, follow BMP, change iv fluid to 1/2 NS. patient remains nonverbal 07/24; clinically unchanged, replete K, iv fluid and TF. reconsult psych as patient remains in catatonic phase 07/25: psych recommendation noted, continue tube feeding, continue to replete electrolytes as needed, follow BMP. I strongly believe her severe electrolytes derangement and encephalopathy related to her catatonia, poor oral intake other than any underlying medical conditions. There is no family contact in file, no home address available, patient appeared to be unfunded. manager internal working on placement. 07/26: psych recommendation noted, continue tube feeding, continue to replete electrolytes as needed, follow BMP. I strongly believe her severe electrolytes derangement and encephalopathy related to her catatonia, poor oral intake other than any underlying medical conditions. There is no family contact in file, no home address available, patient appeared to be unfunded. manager internal working on placement. 07/27; continue with tube feeding. There is no family contact in file, no home address available, patient appeared to be unfunded. Case management is following. 07/28; patient still on tube feeding, patient is noncommunicative. I believe her condition is related to her catatonia. Psych is following her. Currently her electrolytes are corrected. There is no family contact in file, no home address available, patient appeared to be unfunded. Case management is following. 07/29 patient is nonverbal, eyes open does not follow simple commands,, still having low-grade fever T-max 100 degrees,, lab results reviewed discussed with RN- still has loose stools, automotive general manager notes reviewed, unable to contact family 07/30 no acute events overnight, diarrhea improved, stop IV fluids, disposition to be decided 07/31: air defence officer presented to the bedside to attempt to fingerprint the patient to identify her. However his machine was not working 08/01:' Per automotive general manager note [facility] [employer] has been contacted to help in identifying the patient. On officer is to report to bedside and was instructed to call the automotive general manager upon arrival. 08/02/2020 still has diarrhea 08/03/2020 diarrhea improving. Today is the last day of vancomycin 08/04/2020 patient has no diarrhea 08/05: filer and sander RN reported patient had a seizure overnight, Ativan was ordered however was not administered because according to the dayshift RN he was reported that the patient "did not need the medication because she was not having a seizure at the moment". Patient remained hyponatremic and hypochloremic and after conversing with the nurse patient was not getting her prescribed dose FWF for hyponatremia which was corrected 08/06: Electrolyte imbalance discontinue, patient still catatonic 08/07: Electrolyte imbalances continue, to physician consent for PEG tube obtained and GI consulted 08/08: PEG scheduled for 08/09 08/09: s/p PEG placement with GI, hyperkalemic (potassium 5.2) s/p NE Kayexalate. 08/11; patient is on PEG tube feeding. C. difficile treated and resolved. Patient still in catatonic state. Pending guardianship. 08/12/2020 patient on PEG tube feeding. Guardianship pending. Pending placement. 08/13: no aucte events reported overnight, gaurdenship pending. 08/14/20: quality and futility of care is questionable, patient not following any commands, pupillary reflex noted, neurology and ethics consult placed 08/15: Neurology recommended LP, EEG, CT head and MRI brain with and without contrast which are all pending. 08/16: Physician consult obtained for LP which was completed today. Bilateral lower extremity x-rays noted no metal and a physician consent was obtained for contrast therefore MRI brain pending. EEG still pending. Patient again has hypochloremia and hyponatrema 08/17: status epilepticus noted on EEG, Neurology recommends transfer for contin ues EEG. 08/19: seizures subsided. No active seizures. Pending placement. 08/20: CXR shows possible PNA, initiated on cefepime and vancomycin 08/21. Discussed with neurologist. Patient needs to be transferred to a tertiary center for continuous EEG monitoring Transfer to [facility] initiated. As per [place], case will be sent to and earliest time for possible transfer will be tomorrow. In the meantime, patient will need intubation and sedation for status as per neurology. Critical care consult plac ed. Vent orders placed. Anesthesia paged. Patient will be going to the ICU. Transfer order placed. Discussed with anesthesia Dr Hawthorne 6:50 PM and told him why patient needs to be intubated immediately. Apparently, patient transfer orders still in progress and patient still on the floors during his evaluation at bedside. Patient cannot be intubated or while on the floor as per anesthesia MD. Patient is to go to ICU and then intubated. 08/22. Overnight events noted. Patient intubated this AM and started on versed. Discussed with [facility], case is still being reviewed. Called [facility] and was told facility do not have continuous EEG monitoring. She remains on multiple seizure medications. Continue BP medications. Neurology is following closely. 08/23. Patient seen and examined at bedside this morning. Patient has been denied transfer by [facility] has no neuro critical care ICU available. [facility] only accepting patients with acute stroke, gabriel or trauma. Placed a call to [facility] and gave details today. Awaiting callback. Otherwise patient remains sedated. EEG performed yesterday shows significant improvement in status epilepticus. Neurology to review today. 08/24. I discussed with transfer center at [facility] and neurologist Dr. Trivedi requested that latest EEG be reviewed by teleneurology prior to consideration. As patient seizures have subsided, weaning will be on alternative. Neurology notes reviewed-patient to be maintained on sedation for now until it is safe too wean (needs continuous EEG monitoring for this]. I called back transfer center at [facility] was told there are no beds at this time. Patient noted to have Fever overnight. Also has loose watery stools and procalcitonin is elevated. She has been on antibiotics for 4 days now. Repeat chest x-ray shows no new pneumonia. Due to diarrhea, will DC antibiotics for now. Send stool for C. difficile as she had C. difficile earlier during this admission. We will consult ID if C. difficile is positive. Will maintain on current medications for now - Patient Problems ---Status epilepticus Current Visit: Yes Status: Acute Plan to address problem: RN reported seizure activity on on 08/05; Ativan was ordered however was not administered because according to the dayshift RN he was reported that the patient "did not need the medication because she was not having a seizure at the moment". After reviewing nursing notes it is noted that she had reported seizure activity by RN on 08/12 and was given Ativan. Hospitalist was informed No seizure activity reported since Neurology consulted EEG no no status epilepticus Pt is on depakote 1000 mg bid; Keppra 1500 mg bid; vimpat 200 mg iv q12; and now initiated on Fosphentoin (load and maintenance) despite drug-drug interaction on 08/21 per neurology Per neurology: Patient will require transfer to a facility w/ cEEG monitoring for higher level of care as EEG here is intermittently available and intermittently read at present; increase depakote to 1000 mg bid (bolus of 500 mg via peg); increase Keppra to 1500 mg bid; initiate vimpat 200 mg iv q12; s/p Ativan 1 mg IV x 1 dose given; pending MRI Brain w/ wo contrast. Recommend q1 hour neurochecks. 08/19 it was noted that patient's seizure activity subsided therefore was not transferred to tertiary care 08/21 noted to have a focal seizure when neurology was examining the patient, given Ativan x1 and started on a third antiepileptic. Transfer to [facility] reinitiated today. Discussed [facility] neurology - patient will need intubation and sedation. Discussed with anesthesia and studio hand. Transfer order placed. Vent bundle ordered. -08/22. Patient intubated this AM. Had another episode of seizure early AM as per RN prior to intubation. Neurology currently following. Patient is on Depakote, Keppra, fosphenytoin and Vimpat. -08/23. EEG shows improvement after sedation and intubation. Teleneurology following ---Schizoaffective disorder Current Visit: Yes Status: Chronic Plan to address problem: Patient admitted catatonic state and is nonverbal and not following commands Psychiatric consult completed; does not recommend inpatient at this time Haldol as needed, Depakote, Zyprexa Supportive care ---Hyponatremia Current Visit: Yes Status: Resolved Plan to address problem: Admit sodium 142 07/31 134, slight hyponatremia at this time no intervention needed, 08/01 Na 136 however she has remained hyponatremic Hydration with free water flush; 50ml q6 hours while hyponatremic-> informed RN on 08/06 08/07 sodium 136 08/09 sodium 135 Trend BMP 08/10 sodium 141 08/15 sodium 134; informed RN FWF are ordered to be 50 mL every 6 while hyponatremic 08/16 sodium 131, nutrition notes reviewed and FWF seems to be changed 100 mL q4 hours 08/17 sodium 134 08/20 hyponatremia resolved --Metabolic encephalopathy Current Visit: Yes Status: Acute Plan to address problem: Multifactorial , schizoaffective disorder and withdrawal seizures 07/11 CT head Normal nonenhanced CT scan of the brain Patient came from [place], psych evaluation noted Psych recommends outpt f/u 08/14 neurology consult: Recommends obtaining EEG, LP, CTA head, MRI brain with and without contrast 08/15 CT head shows no acute abnormalities and no changes since 07/11/202008/16: LP under fluoroscopy completed. CSF analysis shows no evidence of encephalitis 08/16 MRI brain with/without contrast pending: Shows no acute abnormalities Supportive care -Now on multiple antiseizure medications. Intubated and sedated. Plan for transfer to [address] [place] [address] --Hypochloremia Current Visit: Yes Status: Resolved Plan to address problem: 07/31 chloride 97, 08/02 chloride 97.9, 08/06 chloride 97.0, 08/07 chloride 97.0, 08/09 chloride 98, 08/16 Cl 91.6, 08/20 Cl 94, 08/21 resolved Patient on tube feedings with FWF We will continue to monitor Trend BMP --Diarrhea Current Visit: Yes Status: Acute Plan to address problem: -Check c. diff -Stop IV antibiotics --Discharge planning issues Current Visit: Yes Status: Acute Plan to address problem: Patient's identity is not confirmed [facility] has been contacted to aid in identification however unsuccessful [facility] have been contacted Inpatient records requested from [facility] again on 08/02 Risk-management made aware of patient again on 08/02 Patient identification confirmed with [facility] Attempted to contact children, CM has an email address and an email was sent o [place] the weekend however there is been no reply 08/07: 2 physician consent for PEG tube obtained and GI consulted for PEG tube placement 08/09: PEG tube placed, resume tube feeds within 4 hours [facility] in the process of assuming guardianship over the patient for placement 08/14 ethics consulted 08/17 Dr. Nails requested a transfer to another facility for continuous EEG as the patient may be in status epilepticus. Patient seizures reportedly improved and transfer was initiated 08/21 transfer to [facility] initiated today as patient still having seizure episodes. -08/23. I discussed with transfer center at [facility] and neurologist Dr. Trivedi requested that latest EEG be reviewed by telemetry neurology. -08/24. No beds available at [facility]. No beds available at [facility] --DVT prophylaxis Current Visit: Yes Status: Acute Plan to address problem: SCDs to bilateral lower extremities while in bed Heparin subcu History Interval history: See assessment and plan Hospitalist Physical - Physical exam Narrative exam: VITAL SIGNS: Reviewed. GENERAL: Sedated and intubated HEAD: No signs of head trauma. EYES: Pupils are equal. MOUTH: Orotracheal tube NECK: No adenopathy, no JVD. CHEST: Diminished breath sounds CARDIAC: Regular rate and rhythm. S1 and S2, without murmurs, gallops, or rubs. VASCULAR: Slight edema ABDOMEN: Soft, non tender and non distended. No rebound or guarding, and no masses palpated. Bowel Sounds normal. NEUROLOGIC EXAM: Sedated SKIN: No obvious lesions - Constitutional Vitals: Temp Pulse Resp BP Pulse Ox 99.5 F 105 H 20 100/53 99 08/24/20 12:00 08/24/20 12:20 08/24/20 12:15 08/24/20 12:20 08/24/20 12:20 HEART Score - HEART Score Risk factors: 1-2 risk factors Troponin: Troponin T < 0.010 ng/mL (0.00-0.029) 07/11/20 21:17 Troponin: < normal limit - Critical Actions Critical Actions: 0-3 pts:0.9-1.7%risk of adverse cardiac event.Candidate for discharge Results - Labs CBC & Chem 7: 08/24/20 09:56 08/24/20 Unknown Labs: Laboratory Last Values WBC 18.6 K/mm3 (4.5-11.0) H 08/24/20 09:56 RBC 3.22 M/mm3 (3.65-5.03) L 08/24/20 09:56 Hgb 10.3 gm/dl (10.1-14.3) 08/24/20 09:56 Hct 30.7 % (30.3-42.9) 08/24/20 09:56 MCV 96 fl (79-97) 08/24/20 09:56 MCH 32 pg (28-32) 08/24/20 09:56 MCHC 34 % (30-34) 08/24/20 09:56 RDW 15.3 % (13.2-15.2) H 08/24/20 09:56 Plt Count 357 K/mm3 (140-440) 08/24/20 09:56 Lymph % (Auto) 12.8 % (13.4-35.0) L 08/22/20 15:30 Gibson % (Auto) 4.2 % (0.0-7.3) 08/22/20 15:30 Eos % (Auto) 0.4 % (0.0-4.3) 08/22/20 15:30 Baso % (Auto) 0.3 % (0.0-1.8) 08/22/20 15:30 Lymph # (Auto) 1.5 K/mm3 (1.2-5.4) 08/22/20 15:30 Gibson # (Auto) 0.5 K/mm3 (0.0-0.8) 08/22/20 15:30 Eos # (Auto) 0.1 K/mm3 (0.0-0.4) 08/22/20 15:30 Baso # (Auto) 0.0 K/mm3 (0.0-0.1) 08/22/20 15:30 Add Manual Diff Complete 08/24/20 09:56 Total Counted 100 08/24/20 09:56 Seg Neutrophils % 82.3 % (40.0-70.0) H 08/22/20 15:30 Seg Neuts % (Manual) 82.0 % (40.0-70.0) H 08/24/20 09:56 Band Neutrophils % 3.0 % 08/24/20 09:56 Lymphocytes % (Manual) 6.0 % (13.4-35.0) L 08/24/20 09:56 Reactive Lymphs % (Man) 0 % 08/24/20 09:56 Monocytes % (Manual) 5.0 % (0.0-7.3) 08/24/20 09:56 Eosinophils % (Manual) 2.0 % (0.0-4.3) 08/24/20 09:56 Basophils % (Manual) 0 % (0.0-1.8) 08/24/20 09:56 Metamyelocytes % 2.0 % 08/24/20 09:56 Myelocytes % 0 % 08/24/20 09:56 Promyelocytes % 0 % 08/24/20 09:56 Blast Cells % 0 % 08/24/20 09:56 Nucleated RBC % Not Reportable 08/24/20 09:56 Seg Neutrophils # 9.9 K/mm3 (1.8-7.7) H 08/22/20 15:30 Seg Neutrophils # Man 15.3 K/mm3 (1.8-7.7) H 08/24/20 09:56 Band Neutrophils # 0.6 K/mm3 08/24/20 09:56 Lymphocytes # (Manual) 1.1 K/mm3 (1.2-5.4) L 08/24/20 09:56 Abs React Lymphs (Man) 0.0 K/mm3 08/24/20 09:56 Monocytes # (Manual) 0.9 K/mm3 (0.0-0.8) H 08/24/20 09:56 Eosinophils # (Manual) 0.4 K/mm3 (0.0-0.4) 08/24/20 09:56 Basophils # (Manual) 0.0 K/mm3 (0.0-0.1) 08/24/20 09:56 Metamyelocytes # 0.4 K/mm3 08/24/20 09:56 Myelocytes # 0.0 K/mm3 08/24/20 09:56 Promyelocytes # 0.0 K/mm3 08/24/20 09:56 Blast Cells # 0.0 K/mm3 08/24/20 09:56 WBC Morphology Not Reportable 08/24/20 09:56 Hypersegmented Neuts Not Reportable 08/24/20 09:56 Hyposegmented Neuts Not Reportable 08/24/20 09:56 Hypogranular Neuts Not Reportable 08/24/20 09:56 Smudge Cells Not Reportable 08/24/20 09:56 Toxic Granulation Not Reportable 08/24/20 09:56 Toxic Vacuolation Not Reportable 08/24/20 09:56 Dohle Bodies Not Reportable 08/24/20 09:56 Pelger-Huet Anomaly Not Reportable 08/24/20 09:56 Rashad Rods Not Reportable 08/24/20 09:56 Platelet Estimate Consistent w auto 08/24/20 09:56 Clumped Platelets Not Reportable 08/24/20 09:56 Plt Clumps, EDTA Not Reportable 08/24/20 09:56 Large Platelets Not Reportable 08/24/20 09:56 Giant Platelets Not Reportable 08/24/20 09:56 Platelet Satelliting Not Reportable 08/24/20 09:56 Plt Morphology Comment Not Reportable 08/24/20 09:56 RBC Morphology Not Reportable 08/24/20 09:56 Dimorphic RBCs Not Reportable 08/24/20 09:56 Polychromasia Not Reportable 08/24/20 09:56 Hypochromasia Not Reportable 08/24/20 09:56 Poikilocytosis Not Reportable 08/24/20 09:56 Anisocytosis 1+ 08/24/20 09:56 Microcytosis Not Reportable 08/24/20 09:56 Macrocytosis Not Reportable 08/24/20 09:56 Spherocytes Not Reportable 08/24/20 09:56 Pappenheimer Bodies Not Reportable 08/24/20 09:56 Sickle Cells Not Reportable 08/24/20 09:56 Target Cells Not Reportable 08/24/20 09:56 Tear Drop Cells Not Reportable 08/24/20 09:56 Ovalocytes Not Reportable 08/24/20 09:56 Helmet Cells Not Reportable 08/24/20 09:56 Farrell-Braddock Bodies Not Reportable 08/24/20 09:56 Shelley Rings Not Reportable 08/24/20 09:56 [place] Cells Not Reportable 08/24/20 09:56 Bite Cells Not Reportable 08/24/20 09:56 Crenated Cell Not Reportable 08/24/20 09:56 Elliptocytes Not Reportable 08/24/20 09:56 Acanthocytes (Spur) Not Reportable 08/24/20 09:56 Rouleaux Not Reportable 08/24/20 09:56 Hemoglobin C Crystals Not Reportable 08/24/20 09:56 Schistocytes Not Reportable 08/24/20 09:56 Malaria parasites Not Reportable 08/24/20 09:56 Ed Bodies Not Reportable 08/24/20 09:56 Hem Pathologist Commnt No 08/24/20 09:56 PT 12.5 Sec. (12.2-14.9) 08/15/20 15:26 INR 0.92 (0.87-1.13) 08/15/20 15:26 APTT 20.4 Sec. (24.2-36.6) L 08/15/20 15:26 ABG pH 7.56 (7.320-7.450) H 08/24/20 03:42 POC ABG pCO2 24.7 mmHg (32.0-48.0) L 08/24/20 03:42 ABG pCO2 24.1 mm Hg 08/23/20 04:55 POC ABG pO2 90.0 mmHg (83-108) 08/24/20 03:42 ABG pO2 92.2 mm Hg (80.0-90.0) H 08/23/20 04:55 POC ABG HCO3 21.8 08/24/20 03:42 ABG HCO3 20.7 mmol/L (20.0-26.0) 08/23/20 04:55 ABG O2 Saturation 97.7 % (95.0-99.0) 08/23/20 04:55 ABG O2 Content 20.5 (0.0-44) 08/23/20 04:55 POC ABG Base Excess 0.7 08/24/20 03:42 ABG Base Excess 0.2 mmol/L (-2.0-3.0) 08/23/20 04:55 ABG Hemoglobin 11.4 (12.0-17.5) L 08/24/20 03:42 ABG Oxyhemoglobin 98.9 (94-98) H 08/22/20 11:18 ABG Carboxyhemoglobin 1.1 % (0.0-5.0) 08/23/20 04:55 ABG Methemoglobin 0.6 % (0.0-1.5) 08/23/20 04:55 ABG Sodium 130.4 mmol/L (136.0-145.0) L 08/24/20 03:42 ABG Potassium 3.3 mmol/L (3.40-4.50) L 08/24/20 03:42 ABG Chloride 104.0 mmol/L (98-107) 08/24/20 03:42 ABG Glucose 106 mg/dL (65-95) H 08/24/20 03:42 Oxyhemoglobin 96.0 % (95.0-99.0) 08/23/20 04:55 Carboxyhemoglobin 0.4 (0.5-1.5) L 08/22/20 11:18 FiO2 30.0 08/24/20 03:42 Sodium 133 mmol/L (137-145) L 08/24/20 Unknown Potassium 3.6 mmol/L (3.6-5.0) 08/24/20 Unknown Chloride 99.3 mmol/L (98-107) 08/24/20 Unknown Carbon Dioxide 24 mmol/L (22-30) 08/24/20 Unknown Anion Gap 13 mmol/L 08/24/20 Unknown BUN 11 mg/dL (7-17) 08/24/20 Unknown Creatinine 0.2 mg/dL (0.6-1.2) L 08/24/20 Unknown Estimated GFR > 60 ml/min 08/24/20 Unknown BUN/Creatinine Ratio 55 % 08/24/20 Unknown Glucose 85 mg/dL (65-100) 08/24/20 Unknown POC Glucose 135 mg/dL (70-105) H 08/24/20 11:41 Lactic Acid 1.50 mmol/L (0.7-2.0) 07/12/20 00:04 Phosphorus 3.10 mg/dL (2.5-4.5) 07/24/20 06:00 Magnesium 2.10 mg/dL (1.7-2.3) 07/24/20 06:00 Calcium 7.9 mg/dL (8.4-10.2) L 08/24/20 Unknown Direct Bilirubin < 0.2 mg/dL (0-0.2) 07/13/20 09:33 Total Bilirubin < 0.20 mg/dL (0.1-1.2) 08/24/20 09:56 Total Creatine Kinase 102 units/L (30-135) 07/17/20 05:21 CK-MB (CK-2) 9.2 ng/mL (0.0-4.0) H 07/12/20 15:13 AST 53 units/L (5-40) H 08/24/20 09:56 ALT 33 units/L (7-56) 08/24/20 09:56 CK-MB (CK-2) Rel Index 0.4 (0-4) 07/12/20 15:13 Alkaline Phosphatase 63 units/L (35-129) 08/24/20 09:56 Troponin T < 0.010 ng/mL (0.00-0.029) 07/11/20 21:17 Ammonia 50.0 umol/L (25-60) 08/23/20 20:30 Total Protein 5.0 g/dL (6.3-8.2) L 08/24/20 09:56 Albumin 2.4 g/dL (3.9-5) L 08/24/20 09:56 Albumin/Globulin Ratio 0.9 % 08/24/20 09:56 Procalcitonin 2.78 ng/mL (<0.15) 08/22/20 15:30 Arterial Blood Glucose 106 mg/dL (65-95) H 08/24/20 03:42 Arterial Blood Ionized Calcium 4.4 mg/dL (4.6-5.3) L 08/24/20 03:42 Urine Color Yellow (Yellow) 08/22/20 Unknown Urine Turbidity Clear (Clear) 08/22/20 Unknown Urine pH 7.0 (5.0-7.0) 08/22/20 Unknown Ur Specific [place] 1.017 (1.003-1.030) 08/22/20 Unknown Urine Protein <15 mg/dl mg/dL (Negative) 08/22/20 Unknown Urine Glucose (UA) Neg mg/dL (Negative) 08/22/20 Unknown Urine Ketones Tr mg/dL (Negative) 08/22/20 Unknown Urine Blood Neg (Negative) 08/22/20 Unknown Urine Nitrite Neg (Negative) 08/22/20 Unknown Urine Bilirubin Neg (Negative) 08/22/20 Unknown Urine Urobilinogen < 2.0 mg/dL (<2.0) 08/22/20 Unknown Ur Leukocyte Esterase Neg (Negative) 08/22/20 Unknown Urine WBC (Auto) 7.0 /HPF (0.0-6.0) H 08/22/20 Unknown Urine RBC (Auto) 1.0 /HPF (0.0-6.0) 08/22/20 Unknown U Epithel Cells (Auto) 3.0 /HPF (0-13.0) 08/22/20 Unknown Urine Mucus Few /HPF 08/22/20 Unknown CSF Appearance Clear 08/16/20 14:18 CSF Color Colorless 08/16/20 14:18 CSF WBC 6 /mm3 (1-10) 08/16/20 14:18 CSF RBC 4 /mm3 (0-0) 08/16/20 14:18 CSF Seg Neutrophils 0 % (0-6) 08/16/20 14:18 CSF Lymphocytes % 90.0 % (40-80) 08/16/20 14:18 CSF Reactive Lymphs 0 % 08/16/20 14:18 CSF Monocytes % 10.0 % (15-45) 08/16/20 14:18 CSF Eosinophils % 0 % 08/16/20 14:18 CSF Basophils 0 % 08/16/20 14:18 CSF Pathologist Review C 08/16/20 14:18 CSF Glucose 60 mg/dL 08/16/20 14:18 CSF Total Protein 94 mg/dL 08/16/20 14:18 CSF VDRL Nonreactive (Nonreactive) 08/16/20 14:18 Vancomycin Trough 4.0 ug/mL (5.0-20.0) L 08/23/20 20:30 Salicylates < 0.3 mg/dL (2.8-20.0) L 07/11/20 21:17 Urine Opiates Screen Presumptive negative 07/11/20 Unknown Urine Methadone Screen Presumptive negative 07/11/20 Unknown Acetaminophen 5.0 ug/mL (10.0-30.0) L 07/11/20 21:17 Ur Barbiturates Screen Presumptive negative 07/11/20 Unknown Ur Phencyclidine Scrn Presumptive negative 07/11/20 Unknown Phenytoin 9.2 ug/mL (10.0-20.0) L 08/24/20 Unknown Ur Amphetamines Screen Presumptive negative 07/11/20 Unknown Valproic Acid 55.9 ug/mL (50-100) 08/24/20 Unknown U Benzodiazepines Scrn Presumptive negative 07/11/20 Unknown Urine Cocaine Screen Presumptive negative 07/11/20 Unknown U Marijuana (THC) Screen Presumptive negative 07/11/20 Unknown Drugs of Abuse Note Disclamer 07/11/20 Unknown C. difficile Tox (PCR) Positive (Negative) 07/19/20 18:51 Coronavirus (PCR) Negative (Negative) 08/23/20 10:18 Enterovirus (PCR) Cmmt See scanned result 08/16/20 14:18 HSV I DNA PCR See scanned result 08/16/20 14:18 HSV II DNA PCR See scanned result 08/16/20 14:18 VZV (Qnt-PCR) See scanned result 08/16/20 14:18 Microbiology: Microbiology 08/22/20 11:38 Tracheal Aspirate Sputum Culture - Final Ledesma/IV: Voiding Method Indwelling Catheter IV Catheter Type [Right Upper PICC Line arm] IV Catheter Type [Right INT / Saline Lock Antecubital] IV Catheter Type [Left Forearm INT / Saline Lock ] IV Catheter Type [Right Hand] INT / Saline Lock IV Catheter Type [Right INT / Saline Lock Forearm] IV Catheter Type [Left Hand] INT / Saline Lock Active Medications - Current Medications Current Medications: Generic Name Dose Route Start Last Admin Trade Name Freq PRN Reason Stop Dose Admin Acetaminophen 650 mg 08/24/20 09:00 08/24/20 08:38 Tylenol PO 650 mg Q4H PRN Administration TEMP > 101 Lipase/Protease/Amylase 1 each 07/22/20 07:44 08/14/20 10:[address] 10,500 Unit FEEDTUBE 1 each PRN PRN Administration For Clogged Feeding Tube Haloperidol Lactate 5 mg 07/18/20 13:15 07/21/20 22:06 Haldol IM 5 mg Q6H PRN Administration Agitation Heparin Sodium (Porcine) 5,000 unit 07/12/20 10:00 08/24/20 10:00 Heparin SUB-Q 5,000 unit Q8H KEITH Administration Hydrophilic Ointment 1 applic 08/21/20 18:21 Vaseline Lip Therapy TP Q2HR PRN Dry Lips Propofol 1,000 mg in 100 mls @ 1.524 mls/hr 08/21/20 20:00 Diprivan 10 Mg/Ml IV TITR KEITH Protocol 5 MCG/KG/MIN Dopamine HCl/Dextrose 800 mg in 250 mls @ 1.905 mls/hr 08/22/20 05:00 08/22/20 13:40 Intropin Drip 800 Mg/D5w 250 Ml IV 2 mcg/kg/min TITR KEITH 1.905 mls/hr Titration Protocol 2 MCG/KG/MIN Phenytoin 100 mg/ Sodium 102 mls @ 408 mls/hr 08/22/20 10:00 08/24/20 05:23 Chloride IV 408 mls/hr Q8HR KEITH Administration Lorazepam 100 mg/ Sodium 100 mls @ 1 mls/hr 08/22/20 12:00 08/22/20 11:51 Chloride/ Miscellaneous IV 1 mg/hr Information TITR KEITH 1 mls/hr Administration Protocol 1 MG/HR Insulin Human Regular 0 unit 07/23/20 09:00 08/24/20 12:36 Humulin R SUB-Q Not Given Q6HR KEITH Protocol Lacosamide 200 mg 08/21/20 22:00 08/24/20 09:51 Vimpat PO 200 mg Q12HR KEITH Administration Levetiracetam 1,500 mg 08/21/20 22:00 08/24/20 09:51 Keppra PO 1,500 mg BID KEITH Administration Lorazepam 2 mg 08/06/20 05:05 08/22/20 08:05 Ativan IV 2 mg Q4H PRN Administration Agitation Lorazepam 2 mg 08/22/20 11:10 08/22/20 11:18 Ativan IV 2 mg Q10MIN PRN Administration Agitation Megestrol Acetate 400 mg 07/22/20 10:00 08/24/20 09:51 Megestrol PO 400 mg QDAY KEITH Administration Multi-Ingred Cream/Lotion/Oil/Oint 1 applic 08/22/20 11:10 Artificial Tears Ophth Oint OU Q4HR PRN Dry Eye(s) Olanzapine 2.5 mg 07/25/20 22:00 08/23/20 21:17 Zyprexa PO 2.5 mg QHS KEITH Administration Ondansetron HCl 4 mg 07/12/20 01:06 Zofran IV Q8H PRN Nausea And Vomiting Pantoprazole Sodium 40 mg 08/23/20 10:00 08/24/20 09:51 Protonix IV 40 mg QDAY KEITH Administration Simple Syrup 15 ml 07/22/20 07:44 Simple Syrup FEEDTUBE PRN PRN Hypoglycemia Simple Syrup 30 ml 07/22/20 07:44 Simple Syrup FEEDTUBE PRN PRN Hypoglycemia Sodium Bicarbonate 325 mg 07/22/20 07:44 Sodium Bicarbonate FEEDTUBE PRN PRN For Clogged Feeding Tube Valproic Acid 1,000 mg 08/18/20 22:00 08/24/20 09:51 Depakene Liq FEEDTUBE 1,000 mg Q12HR KEITH Administration Nutrition/Malnutrition Assess - Dietary Evaluation Nutrition/Malnutrition Findings: Nutrition Notes Start: 07/12/20 11:40 Freq: Status: Active Protocol: Document 08/24/20 11:45 AL (Rec: 08/24/20 11:57 AL [email or web address]) Co-Sign 08/24/20 11:45 MK Nutrition Notes Initial or Follow up Reassessment Other Pertinent Diagnosis C. diff (+), AMS, Rhabdomyolysis, dehydration, Hx of stroke Current Diet Nepro 1.8 at 30 ml/hr Labs/Tests Reviewed Pertinent Medications Reviewed Height 5 ft Weight 52 kg Petros Body Weight (kg) 45.45 BMI 22.4 Weight Status Appropriate Subjective/Other Information Pt tube feed is running at goal rate. K labs dropped low and pt was given KCl via IVF. K labs now WNL. Will switch pt back to Osmolite as a result Percent of energy/protein needs met: 100%/75% Burn Absent Trauma Absent GI Symptoms None Current % PO Negligible Minimum of two criteria No Energy Intake (severe) < or equal to 50% Estimated Energy Requirement > or equal to 5 days #1 Nutrition Diagnosis Inadequate oral intake Diagnosis Progress(for reassessment Continues documentation) Is patient on ventilator? Yes Is Patient Ambulatory and/or Out of Bed No [facility] 1213.032 Calculation Used for Recommendations [facility] Additional Notes Protein Needs 70-105 g/day (1. 2-2 g/kg) Fluid Needs: 1ml/kcal Nutrition Intervention Change Diet Order: Change TF to Osmolite 1.5 Nutrition Support: Osmolite 1.5 at 35 ml/hr. For Hyponatremia, flush 50 ml q4h Once resolved, flush 100 ml q4h Kcal 1,260 Protein (gm) 53 Fluid (mL) 640 Goal #1 New TF tolerance Goal #2 Meet at least 75% of total energy and protein needs via TF Anticipated Discharge Needs: Recommend Jevity 1.2 bolus 5 cans/day: Breakfast 2 cans ( 474ml), Lunch 2 cans (474ml), Dinner 1 can (237ml) with flush 100ml before and after bolus. [ End ] Follow-Up By: 08/28/20 Additional Comments FU for TF tolerance, intakes, and labs.
--- NOTE | 2020-08-24 16:04 | Progress Note ---
Assessment and Plan - Patient Problems (1) Encephalopathy Current Visit: Yes Status: Acute (2) Altered mental state Current Visit: Yes Status: Acute Qualifiers: Altered mental status type: unspecified Qualified Code(s): R41.82 - Altered mental status, unspecified (3) Seizure Current Visit: Yes Status: Acute Subjective Date of service: 08/24/20 (follow-up visit) Principal diagnosis: C diff status epilepticus Interval history: Patient is seen and examined.she has been intubated and sedated with IV Ativan. No purposeful movement or any jerking movement reported by the nursing team or during brief examination. On examination: limited examination. Patient is unresponsive to verbal as well as painful stimuli. She is intubated. Brief neuro examination Pupils are fixed, no nystagmus. Face looks symmetrical Other cranial nerves are difficult to examine. Motor: Flat The rest of the neuro exam is difficult to examine. Impression: 1) severe toxic metabolic encephalopathy superimposed from status epilepticus 2) status epilepticus Plan: 1) I agree with transferring the patient to [facility] for critical care point of view and getting continuous EEG to adjust her current antiepileptic drug. 2) continue current antiepileptic medication at this point. 3) continue current care as per primary team as well as critical care team as appropriate. Discussed in great detail with the patient's nurse at the bedside. Objective - Vital Sign Vital Signs - 12hr 08/24/20 08/24/20 08/24/20 04:15 04:30 04:45 Temperature Pulse Rate 108 H 107 H 110 H Pulse Rate [ From Monitor] Respiratory 20 20 20 Rate Blood Pressure 97/58 96/55 96/55 O2 Sat by Pulse 99 99 99 Oximetry 08/24/20 08/24/20 08/24/20 05:00 05:15 05:30 Temperature Pulse Rate 109 H 111 H 108 H Pulse Rate [ From Monitor] Respiratory 20 20 20 Rate Blood Pressure 91/54 99/51 89/54 O2 Sat by Pulse 99 99 99 Oximetry 08/24/20 08/24/20 08/24/20 05:45 06:00 06:15 Temperature Pulse Rate 106 H 110 H 108 H Pulse Rate [ From Monitor] Respiratory 20 20 20 Rate Blood Pressure 99/59 88/50 84/48 O2 Sat by Pulse 99 99 99 Oximetry 08/24/20 08/24/20 08/24/20 06:30 06:45 07:00 Temperature Pulse Rate 105 H 105 H 106 H Pulse Rate [ From Monitor] Respiratory 20 20 20 Rate Blood Pressure 92/56 89/53 89/53 O2 Sat by Pulse 99 100 100 Oximetry 08/24/20 08/24/20 08/24/20 07:15 07:30 07:45 Temperature Pulse Rate 107 H 107 H 109 H Pulse Rate [ From Monitor] Respiratory 19 20 20 Rate Blood Pressure 94/54 96/52 95/53 O2 Sat by Pulse 99 99 99 Oximetry 08/24/20 08/24/20 08/24/20 07:50 08:00 08:15 Temperature 100.2 F H Pulse Rate 108 H 109 H 108 H Pulse Rate [ 109 H From Monitor] Respiratory 20 20 Rate Blood Pressure 95/53 113/73 93/57 O2 Sat by Pulse 99 99 99 Oximetry 08/24/20 08/24/20 08/24/20 08:30 08:45 09:00 Temperature Pulse Rate 107 H 107 H 107 H Pulse Rate [ From Monitor] Respiratory 20 20 20 Rate Blood Pressure 93/54 100/55 100/57 O2 Sat by Pulse 99 99 100 Oximetry 08/24/20 08/24/20 08/24/20 09:15 09:30 09:45 Temperature Pulse Rate 108 H 105 H 110 H Pulse Rate [ From Monitor] Respiratory 20 20 20 Rate Blood Pressure 93/50 101/57 101/57 O2 Sat by Pulse 100 100 99 Oximetry 08/24/20 08/24/20 08/24/20 10:00 10:15 10:30 Temperature Pulse Rate 106 H 105 H 102 H Pulse Rate [ From Monitor] Respiratory 22 21 20 Rate Blood Pressure 101/56 111/61 100/57 O2 Sat by Pulse 100 99 100 Oximetry 08/24/20 08/24/20 08/24/20 10:45 11:00 11:15 Temperature Pulse Rate 101 H 103 H 101 H Pulse Rate [ From Monitor] Respiratory 20 20 20 Rate Blood Pressure 108/55 94/57 94/58 O2 Sat by Pulse 100 100 100 Oximetry 08/24/20 08/24/20 08/24/20 11:30 11:45 12:00 Temperature 99.5 F Pulse Rate 104 H 103 H 106 H Pulse Rate [ 106 H From Monitor] Respiratory 20 20 20 Rate Blood Pressure 99/57 102/52 106/57 O2 Sat by Pulse 100 100 100 Oximetry 10/23/20 10/23/20 10/23/20 12:15 12:20 12:30 Temperature Pulse Rate 104 H 105 H 103 H Pulse Rate [ From Monitor] Respiratory 20 20 Rate Blood Pressure 100/53 100/53 105/64 O2 Sat by Pulse 100 99 100 Oximetry 08/24/20 08/24/20 08/24/20 12:45 13:00 13:15 Temperature Pulse Rate 107 H 106 H 106 H Pulse Rate [ From Monitor] Respiratory 21 20 20 Rate Blood Pressure 109/57 99/55 105/59 O2 Sat by Pulse 100 99 99 Oximetry 08/24/20 08/24/20 08/24/20 13:30 13:45 14:00 Temperature Pulse Rate 103 H 102 H 105 H Pulse Rate [ From Monitor] Respiratory 20 20 20 Rate Blood Pressure 101/56 105/52 106/57 O2 Sat by Pulse 100 100 100 Oximetry 08/24/20 08/24/20 08/24/20 14:15 14:30 14:45 Temperature Pulse Rate 107 H 104 H 105 H Pulse Rate [ From Monitor] Respiratory 20 21 20 Rate Blood Pressure 94/54 106/56 98/55 O2 Sat by Pulse 99 100 100 Oximetry 08/24/20 15:00 Temperature 100.5 F H Pulse Rate 105 H Pulse Rate [ From Monitor] Respiratory 20 Rate Blood Pressure 103/56 O2 Sat by Pulse 100 Oximetry - Laboratory Findings CBC and BMP: 08/24/20 09:56 08/24/20 Unknown Abnormal Lab Findings: Abnormal Labs 07/11/20 07/11/20 07/11/20 21:17 21:17 21:17 WBC 11.7 H Hgb 14.4 H RBC Hct MCH 35 H MCHC 36 H MCV RDW Plt Count [place] % (Auto) Lymph % (Auto) [place] # Seg Neutrophils % 72.1 H Seg Neutrophils # 8.5 H Seg Neuts % (Manual) Lymphocytes % (Manual) Seg Neutrophils # Man Lymphocytes # (Manual) Monocytes # (Manual) PT INR APTT ABG pH POC ABG pCO2 POC ABG pO2 ABG pO2 ABG HCO3 ABG Base Excess ABG Hemoglobin ABG Oxyhemoglobin ABG Sodium ABG Potassium ABG Glucose Oxyhemoglobin Carboxyhemoglobin Sodium Potassium 3.5 L Chloride Carbon Dioxide BUN 20 H Creatinine 0.5 L Glucose 122 H POC Glucose Calcium Phosphorus Magnesium AST 86 H ALT 68 H Total Creatine Kinase 1998 H CK-MB (CK-2) Total Protein Albumin Arterial Blood Glucose Arterial Blood Ionized Calcium Urine WBC (Auto) Vancomycin Trough Salicylates < 0.3 L Acetaminophen Valproic Acid Phenytoin 07/11/20 07/12/20 07/12/20 21:17 06:26 15:13 WBC Hgb RBC Hct MCH MCHC MCV RDW Plt Count [place] % (Auto) Lymph % (Auto) [place] # Seg Neutrophils % Seg Neutrophils # Seg Neuts % (Manual) Lymphocytes % (Manual) Seg Neutrophils # Man Lymphocytes # (Manual) Monocytes # (Manual) PT INR APTT ABG pH POC ABG pCO2 POC ABG pO2 ABG pO2 ABG HCO3 ABG Base Excess ABG Hemoglobin ABG Oxyhemoglobin ABG Sodium ABG Potassium ABG Glucose Oxyhemoglobin Carboxyhemoglobin Sodium Potassium Chloride Carbon Dioxide BUN Creatinine Glucose POC Glucose Calcium Phosphorus Magnesium AST ALT Total Creatine Kinase 1888 H 1852 H CK-MB (CK-2) 14.8 H 9.2 H Total Protein Albumin Arterial Blood Glucose Arterial Blood Ionized Calcium Urine WBC (Auto) Vancomycin Trough Salicylates Acetaminophen 5.0 L Valproic Acid Phenytoin 07/13/20 07/13/20 07/14/20 09:33 09:33 01:52 WBC Hgb RBC Hct MCH MCHC MCV RDW Plt Count [place] % (Auto) Lymph % (Auto) [place] # Seg Neutrophils % Seg Neutrophils # Seg Neuts % (Manual) Lymphocytes % (Manual) Seg Neutrophils # Man Lymphocytes # (Manual) Monocytes # (Manual) PT INR APTT ABG pH POC ABG pCO2 POC ABG pO2 ABG pO2 ABG HCO3 ABG Base Excess ABG Hemoglobin ABG Oxyhemoglobin ABG Sodium ABG Potassium ABG Glucose Oxyhemoglobin Carboxyhemoglobin Sodium Potassium 2.8 L* 3.2 L Chloride 107.9 H Carbon Dioxide BUN Creatinine 0.3 L Glucose POC Glucose Calcium 7.9 L D Phosphorus Magnesium AST 83 H ALT Total Creatine Kinase 1678 H CK-MB (CK-2) Total Protein 5.3 L D Albumin 3.0 L Arterial Blood Glucose Arterial Blood Ionized Calcium Urine WBC (Auto) Vancomycin Trough Salicylates Acetaminophen Valproic Acid Phenytoin 07/14/20 07/15/20 07/16/20 15:48 05:55 08:26 WBC Hgb RBC Hct MCH MCHC MCV RDW Plt Count [place] % (Auto) Lymph % (Auto) [place] # Seg Neutrophils % Seg Neutrophils # Seg Neuts % (Manual) Lymphocytes % (Manual) Seg Neutrophils # Man Lymphocytes # (Manual) Monocytes # (Manual) PT INR APTT ABG pH POC ABG pCO2 POC ABG pO2 ABG pO2 ABG HCO3 ABG Base Excess ABG Hemoglobin ABG Oxyhemoglobin ABG Sodium ABG Potassium ABG Glucose Oxyhemoglobin Carboxyhemoglobin Sodium Potassium 2.7 L* 3.1 L Chloride 108.0 H Carbon Dioxide 16 L D 14 L BUN 4 L Creatinine 0.3 L 0.3 L Glucose POC Glucose Calcium 8.3 L Phosphorus 2.40 L Magnesium AST ALT Total Creatine Kinase 828 H 425 H 188 H CK-MB (CK-2) Total Protein Albumin Arterial Blood Glucose Arterial Blood Ionized Calcium Urine WBC (Auto) Vancomycin Trough Salicylates Acetaminophen Valproic Acid Phenytoin 07/17/20 07/17/20 07/18/20 05:21 05:21 05:53 WBC 12.1 H 11.6 H Hgb RBC Hct MCH MCHC MCV RDW Plt Count [place] % (Auto) 7.9 H Lymph % (Auto) [place] # 0.9 H Seg Neutrophils % 70.7 H Seg Neutrophils # 8.2 H Seg Neuts % (Manual) Lymphocytes % (Manual) Seg Neutrophils # Man Lymphocytes # (Manual) Monocytes # (Manual) PT INR APTT ABG pH POC ABG pCO2 POC ABG pO2 ABG pO2 ABG HCO3 ABG Base Excess ABG Hemoglobin ABG Oxyhemoglobin ABG Sodium ABG Potassium ABG Glucose Oxyhemoglobin Carboxyhemoglobin Sodium Potassium 3.2 L Chloride Carbon Dioxide BUN Creatinine Glucose POC Glucose Calcium Phosphorus 2.40 L Magnesium AST ALT Total Creatine Kinase CK-MB (CK-2) Total Protein Albumin Arterial Blood Glucose Arterial Blood Ionized Calcium Urine WBC (Auto) Vancomycin Trough Salicylates Acetaminophen Valproic Acid Phenytoin 07/18/20 07/19/20 07/19/20 05:53 08:12 08:12 WBC Hgb RBC Hct MCH 33 H MCHC 35 H MCV RDW Plt Count [place] % (Auto) Lymph % (Auto) [place] # Seg Neutrophils % Seg Neutrophils # Seg Neuts % (Manual) Lymphocytes % (Manual) Seg Neutrophils # Man Lymphocytes # (Manual) Monocytes # (Manual) PT INR APTT ABG pH POC ABG pCO2 POC ABG pO2 ABG pO2 ABG HCO3 ABG Base Excess ABG Hemoglobin ABG Oxyhemoglobin ABG Sodium ABG Potassium ABG Glucose Oxyhemoglobin Carboxyhemoglobin Sodium Potassium Chloride 108.3 H Carbon Dioxide 17 L BUN 5 L Creatinine 0.3 L Glucose POC Glucose Calcium 8.3 L Phosphorus 2.30 L Magnesium AST ALT Total Creatine Kinase CK-MB (CK-2) Total Protein Albumin Arterial Blood Glucose Arterial Blood Ionized Calcium Urine WBC (Auto) Vancomycin Trough Salicylates Acetaminophen Valproic Acid 7.7 L Phenytoin 07/21/20 07/22/20 07/23/20 06:35 06:59 07:27 WBC Hgb RBC Hct MCH MCHC MCV RDW Plt Count [place] % (Auto) Lymph % (Auto) [place] # Seg Neutrophils % Seg Neutrophils # Seg Neuts % (Manual) Lymphocytes % (Manual) Seg Neutrophils # Man Lymphocytes # (Manual) Monocytes # (Manual) PT INR APTT ABG pH POC ABG pCO2 POC ABG pO2 ABG pO2 ABG HCO3 ABG Base Excess ABG Hemoglobin ABG Oxyhemoglobin ABG Sodium ABG Potassium ABG Glucose Oxyhemoglobin Carboxyhemoglobin Sodium 146 H Potassium 2.0 L* D 2.2 L* Chloride Carbon Dioxide 32 H BUN 2 L < 1 L < 1 L Creatinine 0.2 L 0.2 L 0.4 L D Glucose 139 H 130 H 574 H* POC Glucose Calcium 8.0 L 7.0 L D Phosphorus Magnesium 1.60 L AST ALT Total Creatine Kinase CK-MB (CK-2) Total Protein Albumin Arterial Blood Glucose Arterial Blood Ionized Calcium Urine WBC (Auto) Vancomycin Trough Salicylates Acetaminophen Valproic Acid Phenytoin 07/23/20 07/23/20 07/23/20 10:58 11:16 16:50 WBC Hgb RBC Hct MCH MCHC MCV RDW Plt Count [place] % (Auto) Lymph % (Auto) [place] # Seg Neutrophils % Seg Neutrophils # Seg Neuts % (Manual) Lymphocytes % (Manual) Seg Neutrophils # Man Lymphocytes # (Manual) Monocytes # (Manual) PT INR APTT ABG pH POC ABG pCO2 POC ABG pO2 ABG pO2 ABG HCO3 ABG Base Excess ABG Hemoglobin ABG Oxyhemoglobin ABG Sodium ABG Potassium ABG Glucose Oxyhemoglobin Carboxyhemoglobin Sodium 146 H Potassium 3.5 L D Chloride Carbon Dioxide 31 H BUN 2 L Creatinine 0.2 L Glucose 112 H POC Glucose 111 H 137 H Calcium 8.3 L D Phosphorus Magnesium AST ALT Total Creatine Kinase CK-MB (CK-2) Total Protein Albumin Arterial Blood Glucose Arterial Blood Ionized Calcium Urine WBC (Auto) Vancomycin Trough Salicylates Acetaminophen Valproic Acid Phenytoin 07/23/20 07/24/20 07/24/20 22:33 06:00 08:47 WBC Hgb RBC Hct MCH MCHC MCV RDW Plt Count [place] % (Auto) Lymph % (Auto) [place] # Seg Neutrophils % Seg Neutrophils # Seg Neuts % (Manual) Lymphocytes % (Manual) Seg Neutrophils # Man Lymphocytes # (Manual) Monocytes # (Manual) PT INR APTT ABG pH POC ABG pCO2 POC ABG pO2 ABG pO2 ABG HCO3 ABG Base Excess ABG Hemoglobin ABG Oxyhemoglobin ABG Sodium ABG Potassium ABG Glucose Oxyhemoglobin Carboxyhemoglobin Sodium 146 H Potassium 3.0 L Chloride Carbon Dioxide 31 H BUN Creatinine 0.3 L Glucose 140 H POC Glucose 153 H 118 H Calcium Phosphorus Magnesium AST ALT Total Creatine Kinase CK-MB (CK-2) Total Protein Albumin Arterial Blood Glucose Arterial Blood Ionized Calcium Urine WBC (Auto) Vancomycin Trough Salicylates Acetaminophen Valproic Acid Phenytoin 07/24/20 07/24/20 07/25/20 12:04 17:34 05:58 WBC Hgb RBC Hct MCH MCHC MCV RDW Plt Count [place] % (Auto) Lymph % (Auto) [place] # Seg Neutrophils % Seg Neutrophils # Seg Neuts % (Manual) Lymphocytes % (Manual) Seg Neutrophils # Man Lymphocytes # (Manual) Monocytes # (Manual) PT INR APTT ABG pH POC ABG pCO2 POC ABG pO2 ABG pO2 ABG HCO3 ABG Base Excess ABG Hemoglobin ABG Oxyhemoglobin ABG Sodium ABG Potassium ABG Glucose Oxyhemoglobin Carboxyhemoglobin Sodium Potassium Chloride Carbon Dioxide BUN Creatinine Glucose POC Glucose 126 H 146 H 141 H Calcium Phosphorus Magnesium AST ALT Total Creatine Kinase CK-MB (CK-2) Total Protein Albumin Arterial Blood Glucose Arterial Blood Ionized Calcium Urine WBC (Auto) Vancomycin Trough Salicylates Acetaminophen Valproic Acid Phenytoin 07/25/20 07/25/20 07/25/20 08:09 09:53 12:07 WBC Hgb RBC Hct MCH MCHC MCV RDW Plt Count [place] % (Auto) Lymph % (Auto) [place] # Seg Neutrophils % Seg Neutrophils # Seg Neuts % (Manual) Lymphocytes % (Manual) Seg Neutrophils # Man Lymphocytes # (Manual) Monocytes # (Manual) PT INR APTT ABG pH POC ABG pCO2 POC ABG pO2 ABG pO2 ABG HCO3 ABG Base Excess ABG Hemoglobin ABG Oxyhemoglobin ABG Sodium ABG Potassium ABG Glucose Oxyhemoglobin Carboxyhemoglobin Sodium Potassium Chloride Carbon Dioxide BUN Creatinine 0.2 L Glucose 115 H POC Glucose 138 H 131 H Calcium 8.2 L Phosphorus Magnesium AST ALT Total Creatine Kinase CK-MB (CK-2) Total Protein Albumin Arterial Blood Glucose Arterial Blood Ionized Calcium Urine WBC (Auto) Vancomycin Trough Salicylates Acetaminophen Valproic Acid Phenytoin 07/25/20 07/25/20 07/26/20 17:35 22:31 05:43 WBC Hgb RBC Hct MCH MCHC MCV RDW Plt Count [place] % (Auto) Lymph % (Auto) [place] # Seg Neutrophils % Seg Neutrophils # Seg Neuts % (Manual) Lymphocytes % (Manual) Seg Neutrophils # Man Lymphocytes # (Manual) Monocytes # (Manual) PT INR APTT ABG pH POC ABG pCO2 POC ABG pO2 ABG pO2 ABG HCO3 ABG Base Excess ABG Hemoglobin ABG Oxyhemoglobin ABG Sodium ABG Potassium ABG Glucose Oxyhemoglobin Carboxyhemoglobin Sodium Potassium Chloride Carbon Dioxide BUN Creatinine Glucose POC Glucose 125 H 130 H 153 H Calcium Phosphorus Magnesium AST ALT Total Creatine Kinase CK-MB (CK-2) Total Protein Albumin Arterial Blood Glucose Arterial Blood Ionized Calcium Urine WBC (Auto) Vancomycin Trough Salicylates Acetaminophen Valproic Acid Phenytoin 07/26/20 07/26/20 07/26/20 07:30 07:30 12:01 WBC Hgb RBC Hct MCH 33 H MCHC MCV RDW Plt Count 464 H [place] % (Auto) Lymph % (Auto) [place] # Seg Neutrophils % 71.4 H Seg Neutrophils # Seg Neuts % (Manual) Lymphocytes % (Manual) Seg Neutrophils # Man Lymphocytes # (Manual) Monocytes # (Manual) PT INR APTT ABG pH POC ABG pCO2 POC ABG pO2 ABG pO2 ABG HCO3 ABG Base Excess ABG Hemoglobin ABG Oxyhemoglobin ABG Sodium ABG Potassium ABG Glucose Oxyhemoglobin Carboxyhemoglobin Sodium Potassium Chloride Carbon Dioxide BUN Creatinine 0.3 L Glucose 144 H POC Glucose 134 H Calcium Phosphorus Magnesium AST ALT Total Creatine Kinase CK-MB (CK-2) Total Protein Albumin Arterial Blood Glucose Arterial Blood Ionized Calcium Urine WBC (Auto) Vancomycin Trough Salicylates Acetaminophen Valproic Acid Phenytoin 07/26/20 07/27/20 07/27/20 17:08 06:11 09:25 WBC Hgb RBC Hct MCH MCHC MCV RDW Plt Count [place] % (Auto) Lymph % (Auto) [place] # Seg Neutrophils % Seg Neutrophils # Seg Neuts % (Manual) Lymphocytes % (Manual) Seg Neutrophils # Man Lymphocytes # (Manual) Monocytes # (Manual) PT INR APTT ABG pH POC ABG pCO2 POC ABG pO2 ABG pO2 ABG HCO3 ABG Base Excess ABG Hemoglobin ABG Oxyhemoglobin ABG Sodium ABG Potassium ABG Glucose Oxyhemoglobin Carboxyhemoglobin Sodium 136 L Potassium Chloride Carbon Dioxide BUN Creatinine 0.3 L Glucose 120 H POC Glucose 106 H 128 H Calcium Phosphorus Magnesium AST ALT Total Creatine Kinase CK-MB (CK-2) Total Protein Albumin Arterial Blood Glucose Arterial Blood Ionized Calcium Urine WBC (Auto) Vancomycin Trough Salicylates Acetaminophen Valproic Acid Phenytoin 07/27/20 07/27/20 07/27/20 12:51 17:41 23:40 WBC Hgb RBC Hct MCH MCHC MCV RDW Plt Count [place] % (Auto) Lymph % (Auto) [place] # Seg Neutrophils % Seg Neutrophils # Seg Neuts % (Manual) Lymphocytes % (Manual) Seg Neutrophils # Man Lymphocytes # (Manual) Monocytes # (Manual) PT INR APTT ABG pH POC ABG pCO2 POC ABG pO2 ABG pO2 ABG HCO3 ABG Base Excess ABG Hemoglobin ABG Oxyhemoglobin ABG Sodium ABG Potassium ABG Glucose Oxyhemoglobin Carboxyhemoglobin Sodium Potassium Chloride Carbon Dioxide BUN Creatinine Glucose POC Glucose 124 H 111 H 148 H Calcium Phosphorus Magnesium AST ALT Total Creatine Kinase CK-MB (CK-2) Total Protein Albumin Arterial Blood Glucose Arterial Blood Ionized Calcium Urine WBC (Auto) Vancomycin Trough Salicylates Acetaminophen Valproic Acid Phenytoin 07/28/20 07/28/20 07/28/20 05:00 06:14 11:25 WBC Hgb RBC Hct MCH MCHC MCV RDW Plt Count [place] % (Auto) Lymph % (Auto) [place] # Seg Neutrophils % Seg Neutrophils # Seg Neuts % (Manual) Lymphocytes % (Manual) Seg Neutrophils # Man Lymphocytes # (Manual) Monocytes # (Manual) PT INR APTT ABG pH POC ABG pCO2 POC ABG pO2 ABG pO2 ABG HCO3 ABG Base Excess ABG Hemoglobin ABG Oxyhemoglobin ABG Sodium ABG Potassium ABG Glucose Oxyhemoglobin Carboxyhemoglobin Sodium 135 L Potassium 5.1 H Chloride Carbon Dioxide 21 L BUN Creatinine 0.3 L Glucose 131 H POC Glucose 161 H 143 H Calcium Phosphorus Magnesium AST ALT Total Creatine Kinase CK-MB (CK-2) Total Protein Albumin Arterial Blood Glucose Arterial Blood Ionized Calcium Urine WBC (Auto) Vancomycin Trough Salicylates Acetaminophen Valproic Acid Phenytoin 07/28/20 07/28/20 07/29/20 18:06 23:53 05:36 WBC Hgb RBC Hct MCH MCHC MCV RDW Plt Count [place] % (Auto) Lymph % (Auto) [place] # Seg Neutrophils % Seg Neutrophils # Seg Neuts % (Manual) Lymphocytes % (Manual) Seg Neutrophils # Man Lymphocytes # (Manual) Monocytes # (Manual) PT INR APTT ABG pH POC ABG pCO2 POC ABG pO2 ABG pO2 ABG HCO3 ABG Base Excess ABG Hemoglobin ABG Oxyhemoglobin ABG Sodium ABG Potassium ABG Glucose Oxyhemoglobin Carboxyhemoglobin Sodium Potassium Chloride Carbon Dioxide BUN Creatinine 0.3 L Glucose 149 H POC Glucose 160 H 118 H Calcium Phosphorus Magnesium AST ALT Total Creatine Kinase CK-MB (CK-2) Total Protein Albumin Arterial Blood Glucose Arterial Blood Ionized Calcium Urine WBC (Auto) Vancomycin Trough Salicylates Acetaminophen Valproic Acid Phenytoin 07/29/20 07/29/20 07/29/20 06:46 12:08 17:29 WBC Hgb RBC Hct MCH MCHC MCV RDW Plt Count [place] % (Auto) Lymph % (Auto) [place] # Seg Neutrophils % Seg Neutrophils # Seg Neuts % (Manual) Lymphocytes % (Manual) Seg Neutrophils # Man Lymphocytes # (Manual) Monocytes # (Manual) PT INR APTT ABG pH POC ABG pCO2 POC ABG pO2 ABG pO2 ABG HCO3 ABG Base Excess ABG Hemoglobin ABG Oxyhemoglobin ABG Sodium ABG Potassium ABG Glucose Oxyhemoglobin Carboxyhemoglobin Sodium Potassium Chloride Carbon Dioxide BUN Creatinine Glucose POC Glucose 119 H 126 H 148 H Calcium Phosphorus Magnesium AST ALT Total Creatine Kinase CK-MB (CK-2) Total Protein Albumin Arterial Blood Glucose Arterial Blood Ionized Calcium Urine WBC (Auto) Vancomycin Trough Salicylates Acetaminophen Valproic Acid Phenytoin 07/29/20 07/30/20 07/30/20 23:49 05:48 17:48 WBC Hgb RBC Hct MCH MCHC MCV RDW Plt Count [place] % (Auto) Lymph % (Auto) [place] # Seg Neutrophils % Seg Neutrophils # Seg Neuts % (Manual) Lymphocytes % (Manual) Seg Neutrophils # Man Lymphocytes # (Manual) Monocytes # (Manual) PT INR APTT ABG pH POC ABG pCO2 POC ABG pO2 ABG pO2 ABG HCO3 ABG Base Excess ABG Hemoglobin ABG Oxyhemoglobin ABG Sodium ABG Potassium ABG Glucose Oxyhemoglobin Carboxyhemoglobin Sodium Potassium Chloride Carbon Dioxide BUN Creatinine Glucose POC Glucose 119 H 119 H 110 H Calcium Phosphorus Magnesium AST ALT Total Creatine Kinase CK-MB (CK-2) Total Protein Albumin Arterial Blood Glucose Arterial Blood Ionized Calcium Urine WBC (Auto) Vancomycin Trough Salicylates Acetaminophen Valproic Acid Phenytoin 07/31/20 07/31/20 07/31/20 11:55 12:34 17:18 WBC Hgb RBC Hct MCH MCHC MCV RDW Plt Count [place] % (Auto) Lymph % (Auto) [place] # Seg Neutrophils % Seg Neutrophils # Seg Neuts % (Manual) Lymphocytes % (Manual) Seg Neutrophils # Man Lymphocytes # (Manual) Monocytes # (Manual) PT INR APTT ABG pH POC ABG pCO2 POC ABG pO2 ABG pO2 ABG HCO3 ABG Base Excess ABG Hemoglobin ABG Oxyhemoglobin ABG Sodium ABG Potassium ABG Glucose Oxyhemoglobin Carboxyhemoglobin Sodium 134 L Potassium Chloride 97.0 L Carbon Dioxide 21 L BUN 19 H Creatinine 0.3 L Glucose 116 H POC Glucose 119 H 124 H Calcium Phosphorus Magnesium AST ALT Total Creatine Kinase CK-MB (CK-2) Total Protein Albumin Arterial Blood Glucose Arterial Blood Ionized Calcium Urine WBC (Auto) Vancomycin Trough Salicylates Acetaminophen Valproic Acid Phenytoin 07/31/20 08/01/20 08/01/20 23:30 06:22 06:45 WBC Hgb RBC Hct MCH MCHC MCV RDW Plt Count [place] % (Auto) Lymph % (Auto) [place] # Seg Neutrophils % Seg Neutrophils # Seg Neuts % (Manual) Lymphocytes % (Manual) Seg Neutrophils # Man Lymphocytes # (Manual) Monocytes # (Manual) PT INR APTT ABG pH POC ABG pCO2 POC ABG pO2 ABG pO2 ABG HCO3 ABG Base Excess ABG Hemoglobin ABG Oxyhemoglobin ABG Sodium ABG Potassium ABG Glucose Oxyhemoglobin Carboxyhemoglobin Sodium 136 L Potassium Chloride 97.9 L Carbon Dioxide BUN Creatinine 0.3 L Glucose 122 H POC Glucose 138 H 123 H Calcium Phosphorus Magnesium AST ALT Total Creatine Kinase CK-MB (CK-2) Total Protein Albumin Arterial Blood Glucose Arterial Blood Ionized Calcium Urine WBC (Auto) Vancomycin Trough Salicylates Acetaminophen Valproic Acid Phenytoin 08/01/20 08/02/20 08/02/20 18:17 00:51 06:48 WBC Hgb RBC Hct MCH MCHC MCV RDW Plt Count [place] % (Auto) Lymph % (Auto) [place] # Seg Neutrophils % Seg Neutrophils # Seg Neuts % (Manual) Lymphocytes % (Manual) Seg Neutrophils # Man Lymphocytes # (Manual) Monocytes # (Manual) PT INR APTT ABG pH POC ABG pCO2 POC ABG pO2 ABG pO2 ABG HCO3 ABG Base Excess ABG Hemoglobin ABG Oxyhemoglobin ABG Sodium ABG Potassium ABG Glucose Oxyhemoglobin Carboxyhemoglobin Sodium Potassium Chloride Carbon Dioxide BUN Creatinine Glucose POC Glucose 111 H 109 H 123 H Calcium Phosphorus Magnesium AST ALT Total Creatine Kinase CK-MB (CK-2) Total Protein Albumin Arterial Blood Glucose Arterial Blood Ionized Calcium Urine WBC (Auto) Vancomycin Trough Salicylates Acetaminophen Valproic Acid Phenytoin 08/02/20 08/02/20 08/02/20 12:51 17:55 22:18 WBC Hgb RBC Hct MCH MCHC MCV RDW Plt Count [place] % (Auto) Lymph % (Auto) [place] # Seg Neutrophils % Seg Neutrophils # Seg Neuts % (Manual) Lymphocytes % (Manual) Seg Neutrophils # Man Lymphocytes # (Manual) Monocytes # (Manual) PT INR APTT ABG pH POC ABG pCO2 POC ABG pO2 ABG pO2 ABG HCO3 ABG Base Excess ABG Hemoglobin ABG Oxyhemoglobin ABG Sodium ABG Potassium ABG Glucose Oxyhemoglobin Carboxyhemoglobin Sodium Potassium Chloride Carbon Dioxide BUN Creatinine Glucose POC Glucose 135 H 119 H 117 H Calcium Phosphorus Magnesium AST ALT Total Creatine Kinase CK-MB (CK-2) Total Protein Albumin Arterial Blood Glucose Arterial Blood Ionized Calcium Urine WBC (Auto) Vancomycin Trough Salicylates Acetaminophen Valproic Acid Phenytoin 08/03/20 08/03/20 08/03/20 05:45 06:05 12:15 WBC Hgb RBC Hct MCH MCHC MCV RDW Plt Count [place] % (Auto) Lymph % (Auto) [place] # Seg Neutrophils % Seg Neutrophils # Seg Neuts % (Manual) Lymphocytes % (Manual) Seg Neutrophils # Man Lymphocytes # (Manual) Monocytes # (Manual) PT INR APTT ABG pH POC ABG pCO2 POC ABG pO2 ABG pO2 ABG HCO3 ABG Base Excess ABG Hemoglobin ABG Oxyhemoglobin ABG Sodium ABG Potassium ABG Glucose Oxyhemoglobin Carboxyhemoglobin Sodium 135 L Potassium 5.4 H D Chloride 96.2 L Carbon Dioxide BUN Creatinine 0.4 L Glucose 117 H POC Glucose 109 H 127 H Calcium Phosphorus Magnesium AST ALT Total Creatine Kinase CK-MB (CK-2) Total Protein Albumin Arterial Blood Glucose Arterial Blood Ionized Calcium Urine WBC (Auto) Vancomycin Trough Salicylates Acetaminophen Valproic Acid Phenytoin 08/03/20 08/03/20 08/04/20 17:00 22:35 05:59 WBC Hgb RBC Hct MCH MCHC MCV RDW Plt Count [place] % (Auto) Lymph % (Auto) [place] # Seg Neutrophils % Seg Neutrophils # Seg Neuts % (Manual) Lymphocytes % (Manual) Seg Neutrophils # Man Lymphocytes # (Manual) Monocytes # (Manual) PT INR APTT ABG pH POC ABG pCO2 POC ABG pO2 ABG pO2 ABG HCO3 ABG Base Excess ABG Hemoglobin ABG Oxyhemoglobin ABG Sodium ABG Potassium ABG Glucose Oxyhemoglobin Carboxyhemoglobin Sodium Potassium Chloride Carbon Dioxide BUN Creatinine Glucose POC Glucose 117 H 114 H 115 H Calcium Phosphorus Magnesium AST ALT Total Creatine Kinase CK-MB (CK-2) Total Protein Albumin Arterial Blood Glucose Arterial Blood Ionized Calcium Urine WBC (Auto) Vancomycin Trough Salicylates Acetaminophen Valproic Acid Phenytoin 08/04/20 08/04/20 08/05/20 17:00 23:58 06:33 WBC Hgb RBC Hct MCH MCHC MCV RDW Plt Count [place] % (Auto) Lymph % (Auto) [place] # Seg Neutrophils % Seg Neutrophils # Seg Neuts % (Manual) Lymphocytes % (Manual) Seg Neutrophils # Man Lymphocytes # (Manual) Monocytes # (Manual) PT INR APTT ABG pH POC ABG pCO2 POC ABG pO2 ABG pO2 ABG HCO3 ABG Base Excess ABG Hemoglobin ABG Oxyhemoglobin ABG Sodium ABG Potassium ABG Glucose Oxyhemoglobin Carboxyhemoglobin Sodium Potassium Chloride Carbon Dioxide BUN Creatinine Glucose POC Glucose 123 H 110 H 115 H Calcium Phosphorus Magnesium AST ALT Total Creatine Kinase CK-MB (CK-2) Total Protein Albumin Arterial Blood Glucose Arterial Blood Ionized Calcium Urine WBC (Auto) Vancomycin Trough Salicylates Acetaminophen Valproic Acid Phenytoin 08/06/20 08/06/20 08/07/20 08:59 12:27 00:39 WBC Hgb RBC Hct MCH MCHC MCV RDW Plt Count [place] % (Auto) Lymph % (Auto) [place] # Seg Neutrophils % Seg Neutrophils # Seg Neuts % (Manual) Lymphocytes % (Manual) Seg Neutrophils # Man Lymphocytes # (Manual) Monocytes # (Manual) PT INR APTT ABG pH POC ABG pCO2 POC ABG pO2 ABG pO2 ABG HCO3 ABG Base Excess ABG Hemoglobin ABG Oxyhemoglobin ABG Sodium ABG Potassium ABG Glucose Oxyhemoglobin Carboxyhemoglobin Sodium 133 L Potassium Chloride 97.0 L Carbon Dioxide BUN Creatinine 0.3 L Glucose 130 H POC Glucose 112 H 55 L Calcium Phosphorus Magnesium AST 63 H ALT Total Creatine Kinase CK-MB (CK-2) Total Protein Albumin 3.8 L Arterial Blood Glucose Arterial Blood Ionized Calcium Urine WBC (Auto) Vancomycin Trough Salicylates Acetaminophen Valproic Acid Phenytoin 08/07/20 08/07/20 08/07/20 05:36 07:19 07:19 WBC Hgb 15.2 H RBC Hct 45.5 H MCH 33 H MCHC MCV RDW Plt Count 663 H [place] % (Auto) Lymph % (Auto) [place] # Seg Neutrophils % Seg Neutrophils # Seg Neuts % (Manual) Lymphocytes % (Manual) Seg Neutrophils # Man Lymphocytes # (Manual) Monocytes # (Manual) PT INR APTT ABG pH POC ABG pCO2 POC ABG pO2 ABG pO2 ABG HCO3 ABG Base Excess ABG Hemoglobin ABG Oxyhemoglobin ABG Sodium ABG Potassium ABG Glucose Oxyhemoglobin Carboxyhemoglobin Sodium 136 L Potassium Chloride 97.9 L Carbon Dioxide BUN Creatinine 0.3 L Glucose 123 H POC Glucose 118 H Calcium Phosphorus Magnesium AST ALT Total Creatine Kinase CK-MB (CK-2) Total Protein Albumin Arterial Blood Glucose Arterial Blood Ionized Calcium Urine WBC (Auto) Vancomycin Trough Salicylates Acetaminophen Valproic Acid Phenytoin 08/07/20 08/08/20 08/08/20 15:47 05:24 11:42 WBC Hgb RBC Hct MCH MCHC MCV RDW Plt Count [place] % (Auto) Lymph % (Auto) [place] # Seg Neutrophils % Seg Neutrophils # Seg Neuts % (Manual) Lymphocytes % (Manual) Seg Neutrophils # Man Lymphocytes # (Manual) Monocytes # (Manual) PT 11.7 L INR 0.84 L APTT ABG pH POC ABG pCO2 POC ABG pO2 ABG pO2 ABG HCO3 ABG Base Excess ABG Hemoglobin ABG Oxyhemoglobin ABG Sodium ABG Potassium ABG Glucose Oxyhemoglobin Carboxyhemoglobin Sodium Potassium Chloride Carbon Dioxide BUN Creatinine Glucose POC Glucose 115 H 113 H Calcium Phosphorus Magnesium AST ALT Total Creatine Kinase CK-MB (CK-2) Total Protein Albumin Arterial Blood Glucose Arterial Blood Ionized Calcium Urine WBC (Auto) Vancomycin Trough Salicylates Acetaminophen Valproic Acid Phenytoin 08/08/20 08/09/20 08/09/20 22:24 07:05 07:05 WBC Hgb RBC Hct MCH 34 H MCHC 36 H MCV RDW Plt Count 539 H [place] % (Auto) Lymph % (Auto) [place] # Seg Neutrophils % Seg Neutrophils # Seg Neuts % (Manual) Lymphocytes % (Manual) Seg Neutrophils # Man Lymphocytes # (Manual) Monocytes # (Manual) PT INR APTT ABG pH POC ABG pCO2 POC ABG pO2 ABG pO2 ABG HCO3 ABG Base Excess ABG Hemoglobin ABG Oxyhemoglobin ABG Sodium ABG Potassium ABG Glucose Oxyhemoglobin Carboxyhemoglobin Sodium 135 L Potassium 5.2 H Chloride Carbon Dioxide BUN Creatinine 0.4 L Glucose POC Glucose 109 H Calcium Phosphorus Magnesium AST ALT Total Creatine Kinase CK-MB (CK-2) Total Protein Albumin Arterial Blood Glucose Arterial Blood Ionized Calcium Urine WBC (Auto) Vancomycin Trough Salicylates Acetaminophen Valproic Acid Phenytoin 08/09/20 08/10/20 08/11/20 23:30 13:00 12:10 WBC Hgb RBC Hct MCH MCHC MCV RDW Plt Count [place] % (Auto) Lymph % (Auto) [place] # Seg Neutrophils % Seg Neutrophils # Seg Neuts % (Manual) Lymphocytes % (Manual) Seg Neutrophils # Man Lymphocytes # (Manual) Monocytes # (Manual) PT INR APTT ABG pH POC ABG pCO2 POC ABG pO2 ABG pO2 ABG HCO3 ABG Base Excess ABG Hemoglobin ABG Oxyhemoglobin ABG Sodium ABG Potassium ABG Glucose Oxyhemoglobin Carboxyhemoglobin Sodium Potassium Chloride Carbon Dioxide 21 L BUN Creatinine 0.3 L Glucose POC Glucose 208 H 118 H Calcium Phosphorus Magnesium AST ALT Total Creatine Kinase CK-MB (CK-2) Total Protein Albumin Arterial Blood Glucose Arterial Blood Ionized Calcium Urine WBC (Auto) Vancomycin Trough Salicylates Acetaminophen Valproic Acid Phenytoin 08/11/20 08/11/20 08/12/20 17:49 23:31 06:18 WBC Hgb RBC Hct MCH MCHC MCV RDW Plt Count [place] % (Auto) Lymph % (Auto) [place] # Seg Neutrophils % Seg Neutrophils # Seg Neuts % (Manual) Lymphocytes % (Manual) Seg Neutrophils # Man Lymphocytes # (Manual) Monocytes # (Manual) PT INR APTT ABG pH POC ABG pCO2 POC ABG pO2 ABG pO2 ABG HCO3 ABG Base Excess ABG Hemoglobin ABG Oxyhemoglobin ABG Sodium ABG Potassium ABG Glucose Oxyhemoglobin Carboxyhemoglobin Sodium Potassium Chloride Carbon Dioxide BUN Creatinine Glucose POC Glucose 139 H 133 H 132 H Calcium Phosphorus Magnesium AST ALT Total Creatine Kinase CK-MB (CK-2) Total Protein Albumin Arterial Blood Glucose Arterial Blood Ionized Calcium Urine WBC (Auto) Vancomycin Trough Salicylates Acetaminophen Valproic Acid Phenytoin 08/12/20 08/12/20 08/13/20 12:17 16:40 00:17 WBC Hgb RBC Hct MCH MCHC MCV RDW Plt Count [place] % (Auto) Lymph % (Auto) [place] # Seg Neutrophils % Seg Neutrophils # Seg Neuts % (Manual) Lymphocytes % (Manual) Seg Neutrophils # Man Lymphocytes # (Manual) Monocytes # (Manual) PT INR APTT ABG pH POC ABG pCO2 POC ABG pO2 ABG pO2 ABG HCO3 ABG Base Excess ABG Hemoglobin ABG Oxyhemoglobin ABG Sodium ABG Potassium ABG Glucose Oxyhemoglobin Carboxyhemoglobin Sodium Potassium Chloride Carbon Dioxide BUN Creatinine Glucose POC Glucose 124 H 109 H 128 H Calcium Phosphorus Magnesium AST ALT Total Creatine Kinase CK-MB (CK-2) Total Protein Albumin Arterial Blood Glucose Arterial Blood Ionized Calcium Urine WBC (Auto) Vancomycin Trough Salicylates Acetaminophen Valproic Acid Phenytoin 08/13/20 08/13/20 08/13/20 06:18 16:50 22:40 WBC Hgb RBC Hct MCH MCHC MCV RDW Plt Count [place] % (Auto) Lymph % (Auto) [place] # Seg Neutrophils % Seg Neutrophils # Seg Neuts % (Manual) Lymphocytes % (Manual) Seg Neutrophils # Man Lymphocytes # (Manual) Monocytes # (Manual) PT INR APTT ABG pH POC ABG pCO2 POC ABG pO2 ABG pO2 ABG HCO3 ABG Base Excess ABG Hemoglobin ABG Oxyhemoglobin ABG Sodium ABG Potassium ABG Glucose Oxyhemoglobin Carboxyhemoglobin Sodium Potassium Chloride Carbon Dioxide BUN Creatinine Glucose POC Glucose 115 H 119 H 109 H Calcium Phosphorus Magnesium AST ALT Total Creatine Kinase CK-MB (CK-2) Total Protein Albumin Arterial Blood Glucose Arterial Blood Ionized Calcium Urine WBC (Auto) Vancomycin Trough Salicylates Acetaminophen Valproic Acid Phenytoin 08/14/20 08/14/20 08/15/20 05:13 12:03 09:24 WBC Hgb RBC Hct MCH MCHC MCV RDW Plt Count [place] % (Auto) Lymph % (Auto) [place] # Seg Neutrophils % Seg Neutrophils # Seg Neuts % (Manual) Lymphocytes % (Manual) Seg Neutrophils # Man Lymphocytes # (Manual) Monocytes # (Manual) PT INR APTT ABG pH POC ABG pCO2 POC ABG pO2 ABG pO2 ABG HCO3 ABG Base Excess ABG Hemoglobin ABG Oxyhemoglobin ABG Sodium ABG Potassium ABG Glucose Oxyhemoglobin Carboxyhemoglobin Sodium 134 L Potassium Chloride Carbon Dioxide 14 L D BUN Creatinine 0.3 L Glucose 121 H POC Glucose 122 H 126 H Calcium Phosphorus Magnesium AST ALT Total Creatine Kinase CK-MB (CK-2) Total Protein Albumin Arterial Blood Glucose Arterial Blood Ionized Calcium Urine WBC (Auto) Vancomycin Trough Salicylates Acetaminophen Valproic Acid Phenytoin 08/15/20 08/15/20 08/15/20 12:03 15:26 17:08 WBC Hgb RBC Hct MCH MCHC MCV RDW Plt Count [place] % (Auto) Lymph % (Auto) [place] # Seg Neutrophils % Seg Neutrophils # Seg Neuts % (Manual) Lymphocytes % (Manual) Seg Neutrophils # Man Lymphocytes # (Manual) Monocytes # (Manual) PT INR APTT 20.4 L ABG pH POC ABG pCO2 POC ABG pO2 ABG pO2 ABG HCO3 ABG Base Excess ABG Hemoglobin ABG Oxyhemoglobin ABG Sodium ABG Potassium ABG Glucose Oxyhemoglobin Carboxyhemoglobin Sodium Potassium Chloride Carbon Dioxide BUN Creatinine Glucose POC Glucose 108 H 137 H Calcium Phosphorus Magnesium AST ALT Total Creatine Kinase CK-MB (CK-2) Total Protein Albumin Arterial Blood Glucose Arterial Blood Ionized Calcium Urine WBC (Auto) Vancomycin Trough Salicylates Acetaminophen Valproic Acid Phenytoin 08/15/20 08/16/20 08/16/20 23:11 11:56 11:56 WBC Hgb RBC Hct MCH MCHC MCV RDW Plt Count [place] % (Auto) Lymph % (Auto) [place] # Seg Neutrophils % Seg Neutrophils # Seg Neuts % (Manual) Lymphocytes % (Manual) Seg Neutrophils # Man Lymphocytes # (Manual) Monocytes # (Manual) PT INR APTT ABG pH POC ABG pCO2 POC ABG pO2 ABG pO2 ABG HCO3 ABG Base Excess ABG Hemoglobin ABG Oxyhemoglobin ABG Sodium ABG Potassium ABG Glucose Oxyhemoglobin Carboxyhemoglobin Sodium 131 L Potassium Chloride 91.6 L Carbon Dioxide BUN Creatinine 0.3 L Glucose 169 H POC Glucose 152 H Calcium Phosphorus Magnesium AST ALT Total Creatine Kinase CK-MB (CK-2) Total Protein Albumin Arterial Blood Glucose Arterial Blood Ionized Calcium Urine WBC (Auto) Vancomycin Trough Salicylates Acetaminophen Valproic Acid Phenytoin 8.9 L 08/16/20 08/17/20 08/17/20 16:45 04:48 05:26 WBC Hgb RBC Hct MCH MCHC MCV RDW Plt Count [place] % (Auto) Lymph % (Auto) [place] # Seg Neutrophils % Seg Neutrophils # Seg Neuts % (Manual) Lymphocytes % (Manual) Seg Neutrophils # Man Lymphocytes # (Manual) Monocytes # (Manual) PT INR APTT ABG pH POC ABG pCO2 POC ABG pO2 ABG pO2 ABG HCO3 ABG Base Excess ABG Hemoglobin ABG Oxyhemoglobin ABG Sodium ABG Potassium ABG Glucose Oxyhemoglobin Carboxyhemoglobin Sodium 134 L Potassium Chloride 94.4 L Carbon Dioxide BUN Creatinine 0.3 L Glucose 122 H POC Glucose 125 H 122 H Calcium Phosphorus Magnesium AST ALT Total Creatine Kinase CK-MB (CK-2) Total Protein Albumin Arterial Blood Glucose Arterial Blood Ionized Calcium Urine WBC (Auto) Vancomycin Trough Salicylates Acetaminophen Valproic Acid Phenytoin 08/17/20 08/17/20 08/18/20 16:30 19:39 00:59 WBC Hgb RBC Hct MCH MCHC MCV RDW Plt Count [place] % (Auto) Lymph % (Auto) [place] # Seg Neutrophils % Seg Neutrophils # Seg Neuts % (Manual) Lymphocytes % (Manual) Seg Neutrophils # Man Lymphocytes # (Manual) Monocytes # (Manual) PT INR APTT ABG pH POC ABG pCO2 POC ABG pO2 ABG pO2 ABG HCO3 ABG Base Excess ABG Hemoglobin ABG Oxyhemoglobin ABG Sodium ABG Potassium ABG Glucose Oxyhemoglobin Carboxyhemoglobin Sodium 133 L Potassium Chloride 94.0 L Carbon Dioxide BUN Creatinine 0.2 L Glucose 125 H POC Glucose 126 H 120 H Calcium Phosphorus Magnesium AST ALT Total Creatine Kinase CK-MB (CK-2) Total Protein Albumin Arterial Blood Glucose Arterial Blood Ionized Calcium Urine WBC (Auto) Vancomycin Trough Salicylates Acetaminophen Valproic Acid Phenytoin 08/18/20 08/18/20 08/19/20 07:13 17:23 00:48 WBC Hgb RBC Hct MCH MCHC MCV RDW Plt Count [place] % (Auto) Lymph % (Auto) [place] # Seg Neutrophils % Seg Neutrophils # Seg Neuts % (Manual) Lymphocytes % (Manual) Seg Neutrophils # Man Lymphocytes # (Manual) Monocytes # (Manual) PT INR APTT ABG pH POC ABG pCO2 POC ABG pO2 ABG pO2 ABG HCO3 ABG Base Excess ABG Hemoglobin ABG Oxyhemoglobin ABG Sodium ABG Potassium ABG Glucose Oxyhemoglobin Carboxyhemoglobin Sodium Potassium Chloride Carbon Dioxide BUN Creatinine Glucose POC Glucose 127 H 109 H 116 H Calcium Phosphorus Magnesium AST ALT Total Creatine Kinase CK-MB (CK-2) Total Protein Albumin Arterial Blood Glucose Arterial Blood Ionized Calcium Urine WBC (Auto) Vancomycin Trough Salicylates Acetaminophen Valproic Acid Phenytoin 08/19/20 08/19/20 08/19/20 11:14 16:54 21:29 WBC Hgb RBC Hct MCH MCHC MCV RDW Plt Count [place] % (Auto) Lymph % (Auto) [place] # Seg Neutrophils % Seg Neutrophils # Seg Neuts % (Manual) Lymphocytes % (Manual) Seg Neutrophils # Man Lymphocytes # (Manual) Monocytes # (Manual) PT INR APTT ABG pH 7.478 H POC ABG pCO2 POC ABG pO2 ABG pO2 68.2 L ABG HCO3 18.8 L ABG Base Excess -2.9 L ABG Hemoglobin ABG Oxyhemoglobin ABG Sodium ABG Potassium ABG Glucose Oxyhemoglobin 93.8 L Carboxyhemoglobin Sodium Potassium Chloride Carbon Dioxide BUN Creatinine Glucose POC Glucose 110 H 113 H Calcium Phosphorus Magnesium AST ALT Total Creatine Kinase CK-MB (CK-2) Total Protein Albumin Arterial Blood Glucose Arterial Blood Ionized Calcium Urine WBC (Auto) Vancomycin Trough Salicylates Acetaminophen Valproic Acid Phenytoin 08/19/20 08/20/20 08/20/20 23:53 00:12 01:52 WBC Hgb RBC Hct MCH MCHC MCV RDW Plt Count [place] % (Auto) Lymph % (Auto) [place] # Seg Neutrophils % Seg Neutrophils # Seg Neuts % (Manual) Lymphocytes % (Manual) Seg Neutrophils # Man Lymphocytes # (Manual) Monocytes # (Manual) PT INR APTT ABG pH 7.496 H 7.562 H POC ABG pCO2 21.8 L 21.0 L POC ABG pO2 123.7 H ABG pO2 ABG HCO3 ABG Base Excess ABG Hemoglobin ABG Oxyhemoglobin ABG Sodium 133.1 L 133.9 L ABG Potassium 4.7 H ABG Glucose 202 H 151 H Oxyhemoglobin Carboxyhemoglobin Sodium Potassium Chloride Carbon Dioxide BUN Creatinine Glucose POC Glucose 183 H Calcium Phosphorus Magnesium AST ALT Total Creatine Kinase CK-MB (CK-2) Total Protein Albumin Arterial Blood Glucose 202 H 151 H Arterial Blood Ionized Calcium 4.4 L Urine WBC (Auto) Vancomycin Trough Salicylates Acetaminophen Valproic Acid Phenytoin 08/20/20 08/20/20 08/20/20 06:19 09:31 12:33 WBC Hgb RBC Hct MCH MCHC MCV RDW Plt Count [place] % (Auto) Lymph % (Auto) [place] # Seg Neutrophils % Seg Neutrophils # Seg Neuts % (Manual) Lymphocytes % (Manual) Seg Neutrophils # Man Lymphocytes # (Manual) Monocytes # (Manual) PT INR APTT ABG pH POC ABG pCO2 POC ABG pO2 ABG pO2 ABG HCO3 ABG Base Excess ABG Hemoglobin ABG Oxyhemoglobin ABG Sodium ABG Potassium ABG Glucose Oxyhemoglobin Carboxyhemoglobin Sodium Potassium 5.2 H Chloride Carbon Dioxide BUN 34 H Creatinine Glucose 149 H POC Glucose 124 H 109 H Calcium 8.3 L Phosphorus Magnesium AST ALT Total Creatine Kinase CK-MB (CK-2) Total Protein Albumin Arterial Blood Glucose Arterial Blood Ionized Calcium Urine WBC (Auto) Vancomycin Trough Salicylates Acetaminophen Valproic Acid Phenytoin 08/20/20 08/21/20 08/21/20 18:26 00:58 05:21 WBC Hgb RBC Hct MCH MCHC MCV RDW Plt Count [place] % (Auto) Lymph % (Auto) [place] # Seg Neutrophils % Seg Neutrophils # Seg Neuts % (Manual) Lymphocytes % (Manual) Seg Neutrophils # Man Lymphocytes # (Manual) Monocytes # (Manual) PT INR APTT ABG pH POC ABG pCO2 POC ABG pO2 ABG pO2 ABG HCO3 ABG Base Excess ABG Hemoglobin ABG Oxyhemoglobin ABG Sodium ABG Potassium ABG Glucose Oxyhemoglobin Carboxyhemoglobin Sodium Potassium Chloride Carbon Dioxide BUN Creatinine Glucose POC Glucose 133 H 143 H 106 H Calcium Phosphorus Magnesium AST ALT Total Creatine Kinase CK-MB (CK-2) Total Protein Albumin Arterial Blood Glucose Arterial Blood Ionized Calcium Urine WBC (Auto) Vancomycin Trough Salicylates Acetaminophen Valproic Acid Phenytoin 08/21/20 08/21/20 08/21/20 05:41 11:41 18:15 WBC Hgb RBC Hct MCH MCHC MCV RDW Plt Count [place] % (Auto) Lymph % (Auto) [place] # Seg Neutrophils % Seg Neutrophils # Seg Neuts % (Manual) Lymphocytes % (Manual) Seg Neutrophils # Man Lymphocytes # (Manual) Monocytes # (Manual) PT INR APTT ABG pH 7.513 H POC ABG pCO2 POC ABG pO2 ABG pO2 ABG HCO3 26.2 H ABG Base Excess 3.4 H ABG Hemoglobin 10.5 L ABG Oxyhemoglobin ABG Sodium ABG Potassium ABG Glucose Oxyhemoglobin Carboxyhemoglobin Sodium Potassium Chloride Carbon Dioxide BUN 23 H Creatinine 0.2 L D Glucose 102 H POC Glucose 138 H Calcium 8.2 L Phosphorus Magnesium AST ALT Total Creatine Kinase CK-MB (CK-2) Total Protein Albumin Arterial Blood Glucose Arterial Blood Ionized Calcium Urine WBC (Auto) Vancomycin Trough Salicylates Acetaminophen Valproic Acid Phenytoin 08/21/20 08/22/20 08/22/20 18:38 05:41 11:18 WBC 20.8 H Hgb RBC 3.51 L Hct MCH 33 H MCHC MCV RDW Plt Count [place] % (Auto) Lymph % (Auto) [place] # Seg Neutrophils % Seg Neutrophils # Seg Neuts % (Manual) Lymphocytes % (Manual) Seg Neutrophils # Man Lymphocytes # (Manual) Monocytes # (Manual) PT INR APTT ABG pH 7.518 H POC ABG pCO2 POC ABG pO2 143.5 H ABG pO2 ABG HCO3 ABG Base Excess ABG Hemoglobin ABG Oxyhemoglobin 98.9 H ABG Sodium 135.9 L ABG Potassium 3.2 L ABG Glucose 123 H Oxyhemoglobin Carboxyhemoglobin 0.4 L Sodium Potassium Chloride Carbon Dioxide BUN Creatinine Glucose POC Glucose 108 H Calcium Phosphorus Magnesium AST ALT Total Creatine Kinase CK-MB (CK-2) Total Protein Albumin Arterial Blood Glucose 123 H Arterial Blood Ionized Calcium 4.5 L Urine WBC (Auto) Vancomycin Trough Salicylates Acetaminophen Valproic Acid Phenytoin 1008/22/20 08/22/20 13:08 13:20 15:30 WBC 12.1 H Hgb RBC 3.27 L Hct MCH 33 H MCHC MCV 98 H RDW Plt Count 442 H [place] % (Auto) Lymph % (Auto) 12.8 L [place] # Seg Neutrophils % 82.3 H Seg Neutrophils # 9.9 H Seg Neuts % (Manual) Lymphocytes % (Manual) Seg Neutrophils # Man Lymphocytes # (Manual) Monocytes # (Manual) PT INR APTT ABG pH POC ABG pCO2 POC ABG pO2 ABG pO2 ABG HCO3 ABG Base Excess ABG Hemoglobin ABG Oxyhemoglobin ABG Sodium ABG Potassium ABG Glucose Oxyhemoglobin Carboxyhemoglobin Sodium Potassium Chloride Carbon Dioxide BUN Creatinine Glucose POC Glucose 144 H Calcium Phosphorus Magnesium AST ALT Total Creatine Kinase CK-MB (CK-2) Total Protein Albumin Arterial Blood Glucose Arterial Blood Ionized Calcium Urine WBC (Auto) Vancomycin Trough Salicylates Acetaminophen Valproic Acid Phenytoin 8.4 L 08/22/20 08/22/20 08/22/20 15:30 18:42 Unknown WBC Hgb RBC Hct MCH MCHC MCV RDW Plt Count [place] % (Auto) Lymph % (Auto) [place] # Seg Neutrophils % Seg Neutrophils # Seg Neuts % (Manual) Lymphocytes % (Manual) Seg Neutrophils # Man Lymphocytes # (Manual) Monocytes # (Manual) PT INR APTT ABG pH POC ABG pCO2 POC ABG pO2 ABG pO2 ABG HCO3 ABG Base Excess ABG Hemoglobin ABG Oxyhemoglobin ABG Sodium ABG Potassium ABG Glucose Oxyhemoglobin Carboxyhemoglobin Sodium Potassium 3.5 L Chloride Carbon Dioxide BUN Creatinine 0.2 L Glucose 148 H POC Glucose 149 H Calcium 7.7 L Phosphorus Magnesium AST 60 H ALT Total Creatine Kinase CK-MB (CK-2) Total Protein 5.3 L Albumin 2.6 L Arterial Blood Glucose Arterial Blood Ionized Calcium Urine WBC (Auto) 7.0 H Vancomycin Trough Salicylates Acetaminophen Valproic Acid Phenytoin 08/23/20 08/23/20 08/23/20 00:19 04:55 06:57 WBC Hgb RBC Hct MCH MCHC MCV RDW Plt Count [place] % (Auto) Lymph % (Auto) [place] # Seg Neutrophils % Seg Neutrophils # Seg Neuts % (Manual) Lymphocytes % (Manual) Seg Neutrophils # Man Lymphocytes # (Manual) Monocytes # (Manual) PT INR APTT ABG pH 7.550 H POC ABG pCO2 POC ABG pO2 ABG pO2 92.2 H ABG HCO3 ABG Base Excess ABG Hemoglobin ABG Oxyhemoglobin ABG Sodium ABG Potassium ABG Glucose Oxyhemoglobin Carboxyhemoglobin Sodium Potassium Chloride Carbon Dioxide BUN Creatinine Glucose POC Glucose 124 H 110 H Calcium Phosphorus Magnesium AST ALT Total Creatine Kinase CK-MB (CK-2) Total Protein Albumin Arterial Blood Glucose Arterial Blood Ionized Calcium Urine WBC (Auto) Vancomycin Trough Salicylates Acetaminophen Valproic Acid Phenytoin 08/23/20 08/23/20 08/23/20 09:39 09:39 11:42 WBC 15.4 H Hgb RBC 3.34 L Hct MCH MCHC MCV RDW Plt Count [place] % (Auto) Lymph % (Auto) [place] # Seg Neutrophils % Seg Neutrophils # Seg Neuts % (Manual) Lymphocytes % (Manual) 12.0 L Seg Neutrophils # Man 10.2 H Lymphocytes # (Manual) Monocytes # (Manual) 0.9 H PT INR APTT ABG pH POC ABG pCO2 POC ABG pO2 ABG pO2 ABG HCO3 ABG Base Excess ABG Hemoglobin ABG Oxyhemoglobin ABG Sodium ABG Potassium ABG Glucose Oxyhemoglobin Carboxyhemoglobin Sodium 136 L Potassium 3.3 L Chloride Carbon Dioxide BUN 19 H Creatinine 0.2 L Glucose 134 H POC Glucose 129 H Calcium 8.0 L Phosphorus Magnesium AST 56 H ALT Total Creatine Kinase CK-MB (CK-2) Total Protein 6.0 L Albumin 2.4 L Arterial Blood Glucose Arterial Blood Ionized Calcium Urine WBC (Auto) Vancomycin Trough Salicylates Acetaminophen Valproic Acid Phenytoin 08/23/20 08/23/20 08/23/20 17:42 20:30 23:56 WBC Hgb RBC Hct MCH MCHC MCV RDW Plt Count [place] % (Auto) Lymph % (Auto) [place] # Seg Neutrophils % Seg Neutrophils # Seg Neuts % (Manual) Lymphocytes % (Manual) Seg Neutrophils # Man Lymphocytes # (Manual) Monocytes # (Manual) PT INR APTT ABG pH POC ABG pCO2 POC ABG pO2 ABG pO2 ABG HCO3 ABG Base Excess ABG Hemoglobin ABG Oxyhemoglobin ABG Sodium ABG Potassium ABG Glucose Oxyhemoglobin Carboxyhemoglobin Sodium Potassium Chloride Carbon Dioxide BUN Creatinine Glucose POC Glucose 138 H 155 H Calcium Phosphorus Magnesium AST ALT Total Creatine Kinase CK-MB (CK-2) Total Protein Albumin Arterial Blood Glucose Arterial Blood Ionized Calcium Urine WBC (Auto) Vancomycin Trough 4.0 L Salicylates Acetaminophen Valproic Acid Phenytoin 08/24/20 08/24/20 08/24/20 03:42 09:56 09:56 WBC 18.6 H Hgb RBC 3.22 L Hct MCH MCHC MCV RDW 15.3 H Plt Count [place] % (Auto) Lymph % (Auto) [place] # Seg Neutrophils % Seg Neutrophils # Seg Neuts % (Manual) 82.0 H Lymphocytes % (Manual) 6.0 L Seg Neutrophils # Man 15.3 H Lymphocytes # (Manual) 1.1 L Monocytes # (Manual) 0.9 H PT INR APTT ABG pH 7.56 H POC ABG pCO2 24.7 L POC ABG pO2 ABG pO2 ABG HCO3 ABG Base Excess ABG Hemoglobin 11.4 L ABG Oxyhemoglobin ABG Sodium 130.4 L ABG Potassium 3.3 L ABG Glucose 106 H Oxyhemoglobin Carboxyhemoglobin Sodium 136 L Potassium 3.4 L Chloride Carbon Dioxide BUN Creatinine 0.2 L Glucose 138 H POC Glucose Calcium 7.6 L Phosphorus Magnesium AST 53 H ALT Total Creatine Kinase CK-MB (CK-2) Total Protein 5.0 L Albumin 2.4 L Arterial Blood Glucose 106 H Arterial Blood Ionized Calcium 4.4 L Urine WBC (Auto) Vancomycin Trough Salicylates Acetaminophen Valproic Acid Phenytoin 08/24/20 08/24/20 08/24/20 11:41 Unknown Unknown WBC Hgb RBC Hct MCH MCHC MCV RDW Plt Count [place] % (Auto) Lymph % (Auto) [place] # Seg Neutrophils % Seg Neutrophils # Seg Neuts % (Manual) Lymphocytes % (Manual) Seg Neutrophils # Man Lymphocytes # (Manual) Monocytes # (Manual) PT INR APTT ABG pH POC ABG pCO2 POC ABG pO2 ABG pO2 ABG HCO3 ABG Base Excess ABG Hemoglobin ABG Oxyhemoglobin ABG Sodium ABG Potassium ABG Glucose Oxyhemoglobin Carboxyhemoglobin Sodium 133 L Potassium Chloride Carbon Dioxide BUN Creatinine 0.2 L Glucose POC Glucose 135 H Calcium 7.9 L Phosphorus Magnesium AST ALT Total Creatine Kinase CK-MB (CK-2) Total Protein Albumin Arterial Blood Glucose Arterial Blood Ionized Calcium Urine WBC (Auto) Vancomycin Trough Salicylates Acetaminophen Valproic Acid Phenytoin 9.2 L
[2020-08-24] MEDS: VANCOMYCIN 250 MG/10 ML ORAL LIQD PO SCH (21:58)
--- NOTE | 2020-08-25 03:59 | XRay Report ---
CHEST 1 VIEW 08/25/2020 3:23 AM INDICATION / CLINICAL INFORMATION: follow up respiratory failure. COMPARISON: 08/24/20 FINDINGS: SUPPORT DEVICES: Right PICC and endotracheal tube are unchanged. HEART / MEDIASTINUM: No significant abnormality. LUNGS / PLEURA: Left basilar density is unchanged. No pneumothorax. ADDITIONAL FINDINGS: No significant additional findings. IMPRESSION: 1. No significant change. Signer Name: Shubham Nunez MD Signed: 08/25/2020 3:55 AM Workstation Name: [email or web address]
[2020-08-25 05:24] LABS: Hematocrit 28.7 % (30.3-42.9); Hemoglobin 9.9 gm/dl (10.1-14.3); Mean Corpuscular HGB Conc 35 % (30-34); Mean Corpuscular Volume 96 fl (79-97); Platelet Count 351 K/mm3 (140-440); Red Blood Count 3.01 M/mm3 (3.65-5.03); Red Cell Distribution Width 15.5 % (13.2-15.2)
[2020-08-25 05:31] LABS: Basophils % (Auto) 0.3 % (0.0-1.8); Eosinophils # (Auto) 0.2 K/mm3 (0.0-0.4); Eosinophils % (Auto) 1.4 % (0.0-4.3); Lymphocytes # (Auto) 2.3 K/mm3 (1.2-5.4); Lymphocytes % (Auto) 13.2 % (13.4-35.0); Monocytes # (Auto) 0.9 K/mm3 (0.0-0.8); Monocytes % (Auto) 5.3 % (0.0-7.3)
[2020-08-25] MEDS: HEPARIN 5,000 UNIT/1 ML VIAL SUB-Q SCH ×3 (05:58→17:39)
[2020-08-25] MEDS: VANCOMYCIN 250 MG/10 ML ORAL LIQD PO SCH ×3 (05:58→17:40)
[2020-08-25 05:59] LABS: Alanine Aminotransferase 40 units/L (7-56); Blood Urea Nitrogen 13 mg/dL (7-17); Hemolysis Index 4
[2020-08-25] MEDS: PHENYTOIN 100 MG in SODIUM CHLORIDE 0.9% 100 ML IV SCH ×3 (05:59→22:02)
[2020-08-25 06:00] LABS: BUN/Creatinine Ratio 65
[2020-08-25] MEDS: INSULIN REGULAR, HUMAN 100 UNIT/ML 3ML VIAL SUB-Q SCH ×3 (10:01→18:37)
[2020-08-25] MEDS: LACOSAMIDE 100 MG TAB PO SCH ×2 (10:39→21:47)
[2020-08-25] MEDS: VALPROIC ACID 250 MG/5 ML ORAL LIQD FEEDTUBE SCH ×2 (10:39→21:46)
[2020-08-25] MEDS: PANTOPRAZOLE 40 MG INJ IV SCH (10:40)
[2020-08-25] MEDS: levETIRAcetam 500 MG/5 ML ORAL LIQD PO SCH ×2 (10:40→21:48)
[2020-08-25] MEDS: MEGESTROL 400 MG/10 ML ORAL LIQD PO SCH (10:40)
[2020-08-25] MEDS: DOPamine/D5W 800 MG/250 ML 800 MG/250 ML BAG IV SCH (11:03)
[2020-08-25] MEDS: LORazepam 100 MG in SODIUM CHLORIDE 0.9% 50 ML, EMPTY BAG 0 ML IV SCH (15:57)
--- NOTE | 2020-08-25 18:25 | Consultation ---
History of Present Illness - Reason for Consult Consult date: 08/25/20 C diff Requesting physician: GAIL NI - History of Present Illness 60 years old female with history of schizoaffective disorder, admitted on 07/11/2020 secondary to altered mental status with confusion and poor p.o. intake. She was found with rhabdomyolysis and electrolyte imbalance and possible seizures. Patient developed C. difficile diarrhea by 07/20/2020 and has completed treatment for C. difficile from 07/20/2020-08/03/2020. Patient remains having severe electrolyte imbalance due to psych issues catatonia with poor p.o. intake. Underwent PEG placement on 08/09/2020. Patient remains having multiple seizures. Patient was intubated. Patient developed pneumonia on 08/20/2020 st arted on cefepime and vancomycin. Plan is to transfer patient due to intractable seizures has failed. Patient noted with low-grade fever since 08/24/2020. Leukocytosis now better. Noted hypotensive and tachycardic. Review of Systems: Unable to test due to intubation Past History Past Medical History: stroke (PSYCHIATRY), other Past Surgical History: No surgical history Social history: no significant social history Family history: no significant family history Medications and Allergies Allergies Allergy/AdvReac Type Severity Reaction Status Date / Time Unable to Assess Allergy Unverified 07/11/20 21:47 Home Medications Medication Instructions Recorded Confirmed Last Taken Type No Known Home Medications [No 07/18/20 07/18/20 Unknown History Reported Home Medications] Active Meds: Active Medications Acetaminophen (Tylenol) 650 mg PO Q4H PRN PRN Reason: TEMP > 101 Last Admin: 08/24/20 15:06 Dose: 650 mg Documented by: Lipase/Protease/Amylase (Pancrebetty Sprague 10,500 Unit) 1 each FEEDTUBE PRN PRN PRN Reason: For Clogged Feeding Tube Last Admin: 08/14/20 10:25 Dose: 1 each Documented by: Haloperidol Lactate (Haldol) 5 mg IM Q6H PRN PRN Reason: Agitation Last Admin: 07/21/20 22:06 Dose: 5 mg Documented by: Heparin Sodium (Porcine) (Heparin) 5,000 unit SUB-Q Q8H KEITH Last Admin: 08/25/20 17:39 Dose: 5,000 unit Documented by: Hydrophilic Ointment (Vaseline Lip Therapy) 1 applic TP Q2HR PRN PRN Reason: Dry Lips Propofol (Diprivan 10 Mg/Ml) 1,000 mg in 100 mls @ 1.524 mls/hr IV TITR KEITH; Protocol Dopamine HCl/Dextrose (Intropin Drip 800 Mg/D5w 250 Ml) 800 mg in 250 mls @ 1.905 mls/hr IV TITR KEITH; Protocol Last Admin: 08/25/20 11:03 Dose: 2 mcg/kg/min, 1.905 mls/hr Documented by: Phenytoin 100 mg/ Sodium (Chloride) 102 mls @ 408 mls/hr IV Q8HR KEITH Last Admin: 08/25/20 14:26 Dose: 408 mls/hr Documented by: Lorazepam 100 mg/ Sodium Chloride/ Miscellaneous Information 100 mls @ 1 mls/hr IV TITR KEITH; Protocol Last Admin: 08/25/20 15:57 Dose: 1 mg/hr, 1 mls/hr Documented by: Insulin Human Regular (Humulin R) 0 unit SUB-Q Q6HR KEITH; Protocol Last Admin: 08/25/20 12:08 Dose: Not Given Documented by: Lacosamide (Vimpat) 200 mg PO Q12HR [facility] Last Admin: 08/25/20 10:39 Dose: 200 mg Documented by: Lansoprazole (Prevacid Solutab) 30 mg FEEDTUBE QDAY [facility] Levetiracetam (Keppra) 1,500 mg PO BID [facility] Last Admin: 08/25/20 10:40 Dose: 1,500 mg Documented by: Lorazepam (Ativan) 2 mg IV Q4H PRN PRN Reason: Agitation Last Admin: 08/22/20 08:05 Dose: 2 mg Documented by: Lorazepam (Ativan) 2 mg IV Q10MIN PRN PRN Reason: Agitation Last Admin: 08/22/20 11:18 Dose: 2 mg Documented by: Megestrol Acetate (Megestrol) 400 mg PO QDAY [facility] Last Admin: 08/25/20 10:40 Dose: 400 mg Documented by: Multi-Ingred Cream/Lotion/Oil/Oint (Artificial Tears Ophth Oint) 1 applic OU Q4HR PRN PRN Reason: Dry Eye(s) Olanzapine (Zyprexa) 2.5 mg PO QHS [facility] Last Admin: 08/24/20 21:58 Dose: 2.5 mg Documented by: Ondansetron HCl (Zofran) 4 mg IV Q8H PRN PRN Reason: Nausea And Vomiting Simple Syrup (Simple Syrup) 15 ml FEEDTUBE PRN PRN PRN Reason: Hypoglycemia Simple Syrup (Simple Syrup) 30 ml FEEDTUBE PRN PRN PRN Reason: Hypoglycemia Sodium Bicarbonate (Sodium Bicarbonate) 325 mg FEEDTUBE PRN PRN PRN Reason: For Clogged Feeding Tube Valproic Acid (Depakene Liq) 1,000 mg FEEDTUBE Q12HR KEITH Last Admin: 08/25/20 10:39 Dose: 1,000 mg Documented by: Vancomycin HCl (Vancomycin Po) 250 mg PO Q6HR [facility] Last Admin: 08/25/20 17:40 Dose: 250 mg Documented by: Physical Examination - Constitutional Vitals: Vital Signs Temp Pulse Resp BP Pulse Ox 99.9 F H 105 H 20 89/50 96 08/25/20 08:00 08/25/20 16:30 08/25/20 16:30 08/25/20 16:30 08/25/20 16:30 Temperature -Last 24 Hours Temperature 99.9 F Temperature 98.5 F Temperature 98.9 F Temperature 98.8 F Results - Labs CBC & Chem 7: 08/25/20 00:00 08/25/20 00:00 Labs: Abnormal lab results 08/24/20 08/25/20 08/25/20 Range/Units 18:02 00:00 00:00 WBC 17.5 H (4.5-11.0) K/mm3 RBC 3.01 L (3.65-5.03) M/mm3 Hgb 9.9 L (10.1-14.3) gm/dl Hct 28.7 L (30.3-42.9) % MCH 33 H (28-32) pg MCHC 35 H (30-34) % RDW 15.5 H (13.2-15.2) % Lymph % (Auto) 13.2 L (13.4-35.0) % Barron # (Auto) 0.9 H (0.0-0.8) K/mm3 Seg Neutrophils % 79.8 H (40.0-70.0) % Seg Neutrophils # 14.0 H (1.8-7.7) K/mm3 ABG pH (7.320-7.450) POC ABG pCO2 (32.0-48.0) mmHg ABG Hemoglobin (12.0-17.5) ABG Sodium (136.0-145.0) mmol/L ABG Potassium (3.40-4.50) mmol/L ABG Glucose (65-95) mg/dL Potassium 3.1 L (3.6-5.0) mmol/L Creatinine 0.2 L (0.6-1.2) mg/dL Glucose 116 H (65-100) mg/dL POC Glucose 112 H (70-105) mg/dL Calcium 8.0 L (8.4-10.2) mg/dL AST 58 H (5-40) units/L Total Protein 5.6 L (6.3-8.2) g/dL Albumin 2.0 L (3.9-5) g/dL Arterial Blood Glucose (65-95) mg/dL Arterial Blood Ionized Calcium (4.6-5.3) mg/dL 08/25/20 08/25/20 08/25/20 Range/Units 00:22 04:19 05:43 WBC (4.5-11.0) K/mm3 RBC (3.65-5.03) M/mm3 Hgb (10.1-14.3) gm/dl Hct (30.3-42.9) % MCH (28-32) pg MCHC (30-34) % RDW (13.2-15.2) % Lymph % (Auto) (13.4-35.0) % Barron # (Auto) (0.0-0.8) K/mm3 Seg Neutrophils % (40.0-70.0) % Seg Neutrophils # (1.8-7.7) K/mm3 ABG pH 7.546 H (7.320-7.450) POC ABG pCO2 28.2 L (32.0-48.0) mmHg ABG Hemoglobin 10.9 L (12.0-17.5) ABG Sodium 131.6 L (136.0-145.0) mmol/L ABG Potassium 2.9 L (3.40-4.50) mmol/L ABG Glucose 120 H (65-95) mg/dL Potassium (3.6-5.0) mmol/L Creatinine (0.6-1.2) mg/dL Glucose (65-100) mg/dL POC Glucose 160 H 124 H (70-105) mg/dL Calcium (8.4-10.2) mg/dL AST (5-40) units/L Total Protein (6.3-8.2) g/dL Albumin (3.9-5) g/dL Arterial Blood Glucose 120 H (65-95) mg/dL Arterial Blood Ionized Calcium 4.4 L (4.6-5.3) mg/dL 08/25/20 08/25/20 08/25/20 Range/Units 12:21 17:30 18:13 WBC (4.5-11.0) K/mm3 RBC (3.65-5.03) M/mm3 Hgb (10.1-14.3) gm/dl Hct (30.3-42.9) % MCH (28-32) pg MCHC (30-34) % RDW (13.2-15.2) % Lymph % (Auto) (13.4-35.0) % Barron # (Auto) (0.0-0.8) K/mm3 Seg Neutrophils % (40.0-70.0) % Seg Neutrophils # (1.8-7.7) K/mm3 ABG pH (7.320-7.450) POC ABG pCO2 (32.0-48.0) mmHg ABG Hemoglobin (12.0-17.5) ABG Sodium (136.0-145.0) mmol/L ABG Potassium (3.40-4.50) mmol/L ABG Glucose (65-95) mg/dL Potassium (3.6-5.0) mmol/L Creatinine (0.6-1.2) mg/dL Glucose (65-100) mg/dL POC Glucose 131 H 127 H 140 H (70-105) mg/dL Calcium (8.4-10.2) mg/dL AST (5-40) units/L Total Protein (6.3-8.2) g/dL Albumin (3.9-5) g/dL Arterial Blood Glucose (65-95) mg/dL Arterial Blood Ionized Calcium (4.6-5.3) mg/dL Assessment and Plan Cultures: Blood culture on 07/11/2020 no growth Urine culture on 07/11/2020 no growth CSF culture 08/16/2020 no growth Tracheal aspirate date 08/22/2020 usual respiratory adarsh Assessment: 60 years old female with a schizoaffective disorder admitted on 07/11/2020 due to altered mental status/confusion and poor p.o. intake found to have intractable seizures within a prolonged hospital stay with intractable seizures rhabdomyolysis, C. difficile colitis on 07/20/2020, catatonia, poor p.o. intake, recent pneumonia, now with: #Sepsis with septic shock: Not present on admission with fever, tachycardia, hypotension, on dopamine drip; source C. difficile colitis/recurrent #Acute respiratory failure: Intubated for airway protection. #Recurrent C. difficile colitis: Initial C. difficile colitis on 07/20/2020 treated with vancomycin from 07/20/2020 until 08/03/2020. Patient then received cefepime and vancomycin IV for pneumonia on 08/20/2020. #Pneumonia: Treated with cefepime and vancomycin. #Intractable seizures: Per neurology #Schizo affective disorder with catatonia: Per psych #Electrolytes imbalance: Per primary team. Recommendations: -Continue vancomycin p.o. 250 g 4 times daily total 10 days -Avoid broad-spectrum antibiotics -Obtain serial KUB -Consider CT of the abdomen and pelvis if leukocytosis/fever does not improve Will follow. Gloria Sinclair MD Infectious Diseases Supervisor [facility] M [phone] O [phone]
[2020-08-25] MEDS ORDERED: POTASSIUM CHLORIDE 20 MEQ PACKET FEEDTUBE ONE (20:24)
--- NOTE | 2020-08-25 20:32 | Progress Note ---
Assessment and Plan Assessment and plan: 60-year-old female patient with schizoaffective disorder with active hallucinations and confusion presented from [place] for altered mental status and poor intake on 07/13. She was found to have rhabdomyolysis and electrolyte imbalances. She then developed C. difficile diarrhea and she has completed her regimen of p.o. vancomycin from 07/20-08/03. RN stated patient had to liquid bowel movements today however patient is on vancomycin. Per policy if patient has the decreased BMs she was not a C. difficile sample. At the time of my exam this afternoon the patient was in her usual state with no focal seizure activity noted. However this evening when neurology examined her she was noted to have another seizure and was given Ativan IV. Antiepileptic medications adjusted. Dr. Nails spoke to Dr. Taylor about need to transfer for continuous EEG. He also recommended every hour neurochecks and intubation. Stat ABG ordered. 07/13; patient's CK levels trending down on 1678, continue IV hydration patient is more alert at times, hallucinating, Noncommunicative, severe hypokalemia, replace per protocol 07/14; potassium level significantly improved today to 3.2, replenish per protocol. CK levels trending down 828, continue IV hydration, monitor electrolytes 07/15; patient refused potassium yesterday today potassium levels again 2.7 We will add KCl to IV fluids, and IV K riders, monitor electrolytes. CK level 425. Refusing to eat confused noncommunicative. Possible inpatient psych admission when medically stable 07/16; rhabdomyolysis resolved, mild electrolyte imbalances, if corrected medic ally stable for inpatient psych placement 07/17: replete K and phosphate. repeat CBc BMP tomorrow. White count needs to be < 10 for inpt psych admission 07/18: cont to have mildly elevated white count, c/o loose stool. will check for C. def - start flagyl and cipro 07/19: White count normal today. change medications to Po. medically stable to go for inpt psych unit. 07/20; positive for C. def. patient not eating properly, refusing meds time to time. Psych now recommended outpt f/u. CM working on placement. Patient remains nonverbal, does not follow any commend and not giving any personal info. 07/21; K 2.0 today, cont to replete, follow BMP, patient remains nonverbal and not cooperative. refuses to eat and meds. cont d51/2NS. if condition doesnot improve will consider TF 07/22: Potassium level persistently remains low, magnesium 1.6 today. Will replete magnesium and potassium. Patient refusing meds and not eating at all per RN report. Totally noncooperative during the encounternot respond to any question. Keeps her eye closing and covering her face with her forearm. Will order for tube feeding and Dobbhoff tube. Continue to follow. We will also add Megace to boost appetite. 07/23: started on TF, follow BMP, change iv fluid to 1/2 NS. patient remains nonverbal 07/24; clinically unchanged, replete K, iv fluid and TF. reconsult psych as patient remains in catatonic phase 07/25: psych recommendation noted, continue tube feeding, continue to replete electrolytes as needed, follow BMP. I strongly believe her severe electrolytes derangement and encephalopathy related to her catatonia, poor oral intake other than any underlying medical conditions. There is no family contact in file, no home address available, patient appeared to be unfunded. online communications manager working on placement. 07/26: psych recommendation noted, continue tube feeding, continue to replete electrolytes as needed, follow BMP. I strongly believe her severe electrolytes derangement and encephalopathy related to her catatonia, poor oral intake other than any underlying medical conditions. There is no family contact in file, no home address available, patient appeared to be unfunded. online communications manager working on placement. 07/27; continue with tube feeding. There is no family contact in file, no home address available, patient appeared to be unfunded. Case management is following. 07/28; patient still on tube feeding, patient is noncommunicative. I believe her condition is related to her catatonia. Psych is following her. Currently her electrolytes are corrected. There is no family contact in file, no home address available, patient appeared to be unfunded. Case management is following. 07/29 patient is nonverbal, eyes open does not follow simple commands,, still having low-grade fever T-max 100 degrees,, lab results reviewed discussed with RN- still has loose stools, case operator notes reviewed, unable to contact family 07/30 no acute events overnight, diarrhea improved, stop IV fluids, disposition to be decided 07/31: life science technical officer presented to the bedside to attempt to fingerprint the patient to identify her. However his machine was not working 08/01:' Per case operator note [facility] [employer] has been contacted to help in identifying the patient. On officer is to report to bedside and was instructed to call the case operator upon arrival. 08/02/2020 still has diarrhea 08/03/2020 diarrhea improving. Today is the last day of vancomycin 08/04/2020 patient has no diarrhea 08/05: shift supervisor film processing RN reported patient had a seizure overnight, Ativan was ordered however was not administered because according to the dayshift RN he was reported that the patient "did not need the medication because she was not having a seizure at the moment". Patient remained hyponatremic and hypochloremic and after conversing with the nurse patient was not getting her prescribed dose FWF for hyponatremia which was corrected 08/06: Electrolyte imbalance discontinue, patient still catatonic 08/07: Electrolyte imbalances continue, to physician consent for PEG tube obtained and GI consulted 08/08: PEG scheduled for 08/09 08/09: s/p PEG placement with GI, hyperkalemic (potassium 5.2) s/p IL Kayexalate. 08/11; patient is on PEG tube feeding. C. difficile treated and resolved. Patient still in catatonic state. Pending guardianship. 08/12/2020 patient on PEG tube feeding. Guardianship pending. Pending placement. 08/13: no aucte events reported overnight, gaurdenship pending. 08/14/20: quality and futility of care is questionable, patient not following any commands, pupillary reflex noted, neurology and ethics consult placed 08/15: Neurology recommended LP, EEG, CT head and MRI brain with and without contrast which are all pending. 08/16: Physician consult obtained for LP which was completed today. Bilateral lower extremity x-rays noted no metal and a physician consent was obtained for contrast therefore MRI brain pending. EEG still pending. Patient again has hypochloremia and hyponatrema 08/17: status epilepticus noted on EEG, Neurology recommends transfer for contin ues EEG. 08/19: seizures subsided. No active seizures. Pending placement. 08/20: CXR shows possible PNA, initiated on cefepime and vancomycin 08/21. Discussed with neurologist. Patient needs to be transferred to a tertiary center for continuous EEG monitoring Transfer to [place] initiated. As per [place], case will be sent to and earliest time for possible transfer will be tomorrow. In the meantime, patient will need intubation and sedation for status as per neurology. Critical care consult plac ed. Vent orders placed. Anesthesia paged. Patient will be going to the ICU. Transfer order placed. Discussed with anesthesia Dr Hawthorne 6:50 PM and told him why patient needs to be intubated immediately. Apparently, patient transfer orders still in progress and patient still on the floors during his evaluation at bedside. Patient cannot be intubated or while on the floor as per anesthesia MD. Patient is to go to ICU and then intubated. 08/22. Overnight events noted. Patient intubated this AM and started on versed. Discussed with [place], case is still being reviewed. Called [facility] and was told facility do not have continuous EEG monitoring. She remains on multiple seizure medications. Continue BP medications. Neurology is following closely. 08/23. Patient seen and examined at bedside this morning. Patient has been denied transfer by [place] has no neuro critical care ICU available. [facility] only accepting patients with acute stroke, gabriel or trauma. Placed a call to [facility] and gave details today. Awaiting callback. Otherwise patient remains sedated. EEG performed yesterday shows significant improvement in status epilepticus. Neurology to review today. 08/24. I discussed with transfer center at [facility] and neurologist Dr. Trivedi requested that latest EEG be reviewed by teleneurology prior to consideration. As patient seizures have subsided, weaning will be on alternative. Neurology notes reviewed-patient to be maintained on sedation for now until it is safe too wean (needs continuous EEG monitoring for this]. I called back transfer center at [facility] was told there are no beds at this time. Patient noted to have Fever overnight. Also has loose watery stools and procalcitonin is elevated. She has been on antibiotics for 4 days now. Repeat chest x-ray shows no new pneumonia. Due to diarrhea, will DC antibiotics for now. Send stool for C. difficile as she had C. difficile earlier during this admission. We will consult ID if C. difficile is positive. Will maintain on current medications for now 10/24. C diff is positive. Started on PO vancomycin. ID consulted. DCed IV antibiotics. Monitor WBC. Will get abdominal CT if no improvement is noted. Called [place] and [facility] but no beds available today. Neurology recommendations appreciated. Will keep sedatives at same dose. - Patient Problems ---Status epilepticus Current Visit: Yes Status: Acute Plan to address problem: RN reported seizure activity on on 08/05; Ativan was ordered however was not administered because according to the dayshift RN he was reported that the patient "did not need the medication because she was not having a seizure at the moment". After reviewing nursing notes it is noted that she had reported seizure activity by RN on 08/12 and was given Ativan. Hospitalist was informed No seizure activity reported since Neurology consulted EEG no no status epilepticus Pt is on depakote 1000 mg bid; Keppra 1500 mg bid; vimpat 200 mg iv q12; and now initiated on Fosphentoin (load and maintenance) despite drug-drug interaction on 08/21 per neurology Per neurology: Patient will require transfer to a facility w/ cEEG monitoring for higher level of care as EEG here is intermittently available and intermittently read at present; increase depakote to 1000 mg bid (bolus of 500 mg via peg); increase Keppra to 1500 mg bid; initiate vimpat 200 mg iv q12; s/p Ativan 1 mg IV x 1 dose given; pending MRI Brain w/ wo contrast. Recommend q1 hour neurochecks. 08/19 it was noted that patient's seizure activity subsided therefore was not transferred to tertiary care 08/21 noted to have a focal seizure when neurology was examining the patient, given Ativan x1 and started on a third antiepileptic. Transfer to [place] reinitiated today. Discussed [facility] neurology - patient will need intubation and sedation. Discussed with anesthesia and field technical specialist. Transfer order placed. Vent bundle ordered. -08/22. Patient intubated this AM. Had another episode of seizure early AM as per RN prior to intubation. Neurology currently following. Patient is on Depakote, Keppra, fosphenytoin and Vimpat. -08/23. EEG shows improvement after sedation and intubation. Teleneurology following -08/24 - 08/25. No seizures noted. Still on lorazepam drip. Will order EEG repe at. ---Schizoaffective disorder Current Visit: Yes Status: Chronic Plan to address problem: Patient admitted catatonic state and is nonverbal and not following commands Psychiatric consult completed; does not recommend inpatient at this time Haldol as needed, Depakote, Zyprexa Supportive care ---Hyponatremia Current Visit: Yes Status: Resolved Plan to address problem: Admit sodium 142 07/31 134, slight hyponatremia at this time no intervention needed, 08/01 Na 136 however she has remained hyponatremic Hydration with free water flush; 50ml q6 hours while hyponatremic-> informed RN on 08/06 08/07 sodium 136 08/09 sodium 135 Trend BMP 08/10 sodium 141 08/15 sodium 134; informed RN FWF are ordered to be 50 mL every 6 while hyponatremic 08/16 sodium 131, nutrition notes reviewed and FWF seems to be changed 100 mL q4 hours 08/17 sodium 134 08/20 hyponatremia resolved --Metabolic encephalopathy Current Visit: Yes Status: Acute Plan to address problem: Multifactorial , schizoaffective disorder and withdrawal seizures 07/11 CT head Normal nonenhanced CT scan of the brain Patient came from [place], psych evaluation noted Psych recommends outpt f/u 08/14 neurology consult: Recommends obtaining EEG, LP, CTA head, MRI brain with and without contrast 08/15 CT head shows no acute abnormalities and no changes since 07/11/202008/16: LP under fluoroscopy completed. CSF analysis shows no evidence of encephalitis 08/16 MRI brain with/without contrast pending: Shows no acute abnormalities Supportive care -Now on multiple antiseizure medications. Intubated and sedated. Plan for transfer to [address] [place] [address] --Hypochloremia Current Visit: Yes Status: Resolved Plan to address problem: 07/31 chloride 97, 08/02 chloride 97.9, 08/06 chloride 97.0, 08/07 chloride 97.0, 08/09 chloride 98, 08/16 Cl 91.6, 08/20 Cl 94, 08/21 resolved Patient on tube feedings with FWF We will continue to monitor Trend BMP --Clostridium difficile Diarrhea Current Visit: Yes Status: Acute Plan to address problem: -Stop IV antibiotics -PO vancomycin 25mg QID for 10 days -ID consulted. --Discharge planning issues Current Visit: Yes Status: Acute Plan to address problem: Patient's identity is not confirmed [facility] Department has been contacted to aid in identification however unsuccessful [facility] Department have been contacted Inpatient records requested from [facility] again on 08/02 Risk-management made aware of patient again on 08/02 Patient identification confirmed with [facility] Department Attempted to contact children, CM has an email address and an email was sent over the weekend however there is been no reply 08/07: 2 physician consent for PEG tube obtained and GI consulted for PEG tube placement 08/09: PEG tube placed, resume tube feeds within 4 hours [facility] in the process of assuming guardianship over the patient for placement 08/14 ethics consulted 08/17 Dr. Nails requested a transfer to another facility for continuous EEG as the patient may be in status epilepticus. Patient seizures reportedly improved and transfer was initiated 08/21 transfer to [place] initiated today as patient still having seizure episodes. -08/23. I discussed with transfer center at [facility] and neurologist Dr. Trivedi requested that latest EEG be reviewed by telemetry neurology. -08/24-08/25. No beds available at [facility]. No beds available at [place] --DVT prophylaxis Current Visit: Yes Status: Acute Plan to address problem: SCDs to bilateral lower extremities while in bed Heparin subcu History Interval history: See assessment and plan Hospitalist Physical - Physical exam Narrative exam: VITAL SIGNS: Reviewed. GENERAL: Sedated and intubated HEAD: No signs of head trauma. EYES: Pupils are equal. MOUTH: Orotracheal tube NECK: No adenopathy, no JVD. CHEST: Diminished breath sounds CARDIAC: Regular rate and rhythm. S1 and S2, without murmurs, gallops, or rubs. VASCULAR: Slight edema ABDOMEN: Soft, non tender and non distended. No rebound or guarding, and no masses palpated. Bowel Sounds normal. NEUROLOGIC EXAM: Sedated SKIN: No obvious lesions - Constitutional Vitals: Temp Pulse Resp BP Pulse Ox 98.7 F 104 H 20 108/53 99 08/25/20 19:46 08/25/20 19:27 08/25/20 18:30 08/25/20 19:27 08/25/20 19:27 HEART Score - HEART Score Risk factors: 1-2 risk factors Troponin: Troponin T < 0.010 ng/mL (0.00-0.029) 07/11/20 21:17 Troponin: < normal limit - Critical Actions Critical Actions: 0-3 pts:0.9-1.7%risk of adverse cardiac event.Candidate for discharge Results - Labs CBC & Chem 7: 08/25/20 00:00 08/25/20 00:00 Labs: Laboratory Last Values WBC 17.5 K/mm3 (4.5-11.0) H 08/25/20 00:00 RBC 3.01 M/mm3 (3.65-5.03) L 08/25/20 00:00 Hgb 9.9 gm/dl (10.1-14.3) L 08/25/20 00:00 Hct 28.7 % (30.3-42.9) L 08/25/20 00:00 MCV 96 fl (79-97) 08/25/20 00:00 MCH 33 pg (28-32) H 08/25/20 00:00 MCHC 35 % (30-34) H 08/25/20 00:00 RDW 15.5 % (13.2-15.2) H 08/25/20 00:00 Plt Count 351 K/mm3 (140-440) 08/25/20 00:00 Lymph % (Auto) 13.2 % (13.4-35.0) L 08/25/20 00:00 [place] % (Auto) 5.3 % (0.0-7.3) 08/25/20 00:00 Eos % (Auto) 1.4 % (0.0-4.3) 08/25/20 00:00 Baso % (Auto) 0.3 % (0.0-1.8) 08/25/20 00:00 Lymph # (Auto) 2.3 K/mm3 (1.2-5.4) 08/25/20 00:00 [place] # (Auto) 0.9 K/mm3 (0.0-0.8) H 08/25/20 00:00 Eos # (Auto) 0.2 K/mm3 (0.0-0.4) 08/25/20 00:00 Baso # (Auto) 0.0 K/mm3 (0.0-0.1) 08/25/20 00:00 Add Manual Diff Complete 08/24/20 09:56 Total Counted 100 08/24/20 09:56 Seg Neutrophils % 79.8 % (40.0-70.0) H 08/25/20 00:00 Seg Neuts % (Manual) 82.0 % (40.0-70.0) H 08/24/20 09:56 Band Neutrophils % 3.0 % 08/24/20 09:56 Lymphocytes % (Manual) 6.0 % (13.4-35.0) L 08/24/20 09:56 Reactive Lymphs % (Man) 0 % 08/24/20 09:56 Monocytes % (Manual) 5.0 % (0.0-7.3) 08/24/20 09:56 Eosinophils % (Manual) 2.0 % (0.0-4.3) 08/24/20 09:56 Basophils % (Manual) 0 % (0.0-1.8) 08/24/20 09:56 Metamyelocytes % 2.0 % 08/24/20 09:56 Myelocytes % 0 % 08/24/20 09:56 Promyelocytes % 0 % 08/24/20 09:56 Blast Cells % 0 % 08/24/20 09:56 Nucleated RBC % Not Reportable 08/24/20 09:56 Seg Neutrophils # 14.0 K/mm3 (1.8-7.7) H 08/25/20 00:00 Seg Neutrophils # Man 15.3 K/mm3 (1.8-7.7) H 08/24/20 09:56 Band Neutrophils # 0.6 K/mm3 08/24/20 09:56 Lymphocytes # (Manual) 1.1 K/mm3 (1.2-5.4) L 08/24/20 09:56 Abs React Lymphs (Man) 0.0 K/mm3 08/24/20 09:56 Monocytes # (Manual) 0.9 K/mm3 (0.0-0.8) H 08/24/20 09:56 Eosinophils # (Manual) 0.4 K/mm3 (0.0-0.4) 08/24/20 09:56 Basophils # (Manual) 0.0 K/mm3 (0.0-0.1) 08/24/20 09:56 Metamyelocytes # 0.4 K/mm3 08/24/20 09:56 Myelocytes # 0.0 K/mm3 08/24/20 09:56 Promyelocytes # 0.0 K/mm3 08/24/20 09:56 Blast Cells # 0.0 K/mm3 08/24/20 09:56 WBC Morphology Not Reportable 08/24/20 09:56 Hypersegmented Neuts Not Reportable 08/24/20 09:56 Hyposegmented Neuts Not Reportable 08/24/20 09:56 Hypogranular Neuts Not Reportable 08/24/20 09:56 Smudge Cells Not Reportable 08/24/20 09:56 Toxic Granulation Not Reportable 08/24/20 09:56 Toxic Vacuolation Not Reportable 08/24/20 09:56 Dohle Bodies Not Reportable 08/24/20 09:56 Pelger-Huet Anomaly Not Reportable 08/24/20 09:56 Rashad Rods Not Reportable 08/24/20 09:56 Platelet Estimate Consistent w auto 08/24/20 09:56 Clumped Platelets Not Reportable 08/24/20 09:56 Plt Clumps, EDTA Not Reportable 08/24/20 09:56 Large Platelets Not Reportable 08/24/20 09:56 Giant Platelets Not Reportable 08/24/20 09:56 Platelet Satelliting Not Reportable 08/24/20 09:56 Plt Morphology Comment Not Reportable 08/24/20 09:56 RBC Morphology Not Reportable 08/24/20 09:56 Dimorphic RBCs Not Reportable 08/24/20 09:56 Polychromasia Not Reportable 08/24/20 09:56 Hypochromasia Not Reportable 08/24/20 09:56 Poikilocytosis Not Reportable 08/24/20 09:56 Anisocytosis 1+ 08/24/20 09:56 Microcytosis Not Reportable 08/24/20 09:56 Macrocytosis Not Reportable 08/24/20 09:56 Spherocytes Not Reportable 08/24/20 09:56 Pappenheimer Bodies Not Reportable 08/24/20 09:56 Sickle Cells Not Reportable 08/24/20 09:56 Target Cells Not Reportable 08/24/20 09:56 Tear Drop Cells Not Reportable 08/24/20 09:56 Ovalocytes Not Reportable 08/24/20 09:56 Helmet Cells Not Reportable 08/24/20 09:56 Farrell-Matheson Bodies Not Reportable 08/24/20 09:56 Upton Rings Not Reportable 08/24/20 09:56 Ketan Cells Not Reportable 08/24/20 09:56 Bite Cells Not Reportable 08/24/20 09:56 Crenated Cell Not Reportable 08/24/20 09:56 Elliptocytes Not Reportable 08/24/20 09:56 Acanthocytes (Spur) Not Reportable 08/24/20 09:56 Rouleaux Not Reportable 08/24/20 09:56 Hemoglobin C Crystals Not Reportable 08/24/20 09:56 Schistocytes Not Reportable 08/24/20 09:56 Malaria parasites Not Reportable 08/24/20 09:56 Ed Bodies Not Reportable 08/24/20 09:56 Hem Pathologist Commnt No 08/24/20 09:56 PT 12.5 Sec. (12.2-14.9) 08/15/20 15:26 INR 0.92 (0.87-1.13) 08/15/20 15:26 APTT 20.4 Sec. (24.2-36.6) L 08/15/20 15:26 ABG pH 7.546 (7.320-7.450) H 08/25/20 04:19 POC ABG pCO2 28.2 mmHg (32.0-48.0) L 08/25/20 04:19 ABG pCO2 24.1 mm Hg 08/23/20 04:55 POC ABG pO2 88.3 mmHg (83-108) 08/25/20 04:19 ABG pO2 92.2 mm Hg (80.0-90.0) H 08/23/20 04:55 POC ABG HCO3 23.9 08/25/20 04:19 ABG HCO3 20.7 mmol/L (20.0-26.0) 08/23/20 04:55 ABG O2 Saturation 97.7 % (95.0-99.0) 08/23/20 04:55 ABG O2 Content 20.5 (0.0-44) 08/23/20 04:55 POC ABG Base Excess 2.1 08/25/20 04:19 ABG Base Excess 0.2 mmol/L (-2.0-3.0) 08/23/20 04:55 ABG Hemoglobin 10.9 (12.0-17.5) L 08/25/20 04:19 ABG Oxyhemoglobin 98.9 (94-98) H 08/22/20 11:18 ABG Carboxyhemoglobin 1.1 % (0.0-5.0) 08/23/20 04:55 ABG Methemoglobin 0.6 % (0.0-1.5) 08/23/20 04:55 ABG Sodium 131.6 mmol/L (136.0-145.0) L 08/25/20 04:19 ABG Potassium 2.9 mmol/L (3.40-4.50) L 08/25/20 04:19 ABG Chloride 104.0 mmol/L (98-107) 08/25/20 04:19 ABG Glucose 120 mg/dL (65-95) H 08/25/20 04:19 Oxyhemoglobin 96.0 % (95.0-99.0) 08/23/20 04:55 Carboxyhemoglobin 0.4 (0.5-1.5) L 08/22/20 11:18 FiO2 30.0 08/25/20 04:19 Sodium 138 mmol/L (137-145) 08/25/20 00:00 Potassium 3.1 mmol/L (3.6-5.0) L 08/25/20 00:00 Chloride 100.7 mmol/L (98-107) 08/25/20 00:00 Carbon Dioxide 23 mmol/L (22-30) 08/25/20 00:00 Anion Gap 17 mmol/L 08/25/20 00:00 BUN 13 mg/dL (7-17) 08/25/20 00:00 Creatinine 0.2 mg/dL (0.6-1.2) L 08/25/20 00:00 Estimated GFR > 60 ml/min 08/25/20 00:00 BUN/Creatinine Ratio 65 % 08/25/20 00:00 Glucose 116 mg/dL (65-100) H 08/25/20 00:00 POC Glucose 140 mg/dL (70-105) H 08/25/20 18:13 Lactic Acid 1.50 mmol/L (0.7-2.0) 07/12/20 00:04 Phosphorus 3.10 mg/dL (2.5-4.5) 07/24/20 06:00 Magnesium 2.10 mg/dL (1.7-2.3) 07/24/20 06:00 Calcium 8.0 mg/dL (8.4-10.2) L 08/25/20 00:00 Direct Bilirubin < 0.2 mg/dL (0-0.2) 07/13/20 09:33 Total Bilirubin < 0.20 mg/dL (0.1-1.2) 08/25/20 00:00 Total Creatine Kinase 102 units/L (30-135) 07/17/20 05:21 CK-MB (CK-2) 9.2 ng/mL (0.0-4.0) H 07/12/20 15:13 AST 58 units/L (5-40) H 08/25/20 00:00 ALT 40 units/L (7-56) 08/25/20 00:00 CK-MB (CK-2) Rel Index 0.4 (0-4) 07/12/20 15:13 Alkaline Phosphatase 65 units/L (35-129) 08/25/20 00:00 Troponin T < 0.010 ng/mL (0.00-0.029) 07/11/20 21:17 Ammonia 50.0 umol/L (25-60) 08/23/20 20:30 Total Protein 5.6 g/dL (6.3-8.2) L 08/25/20 00:00 Albumin 2.0 g/dL (3.9-5) L 08/25/20 00:00 Albumin/Globulin Ratio 0.6 % 08/25/20 00:00 Procalcitonin 2.78 ng/mL (<0.15) 08/22/20 15:30 Arterial Blood Glucose 120 mg/dL (65-95) H 08/25/20 04:19 Arterial Blood Ionized Calcium 4.4 mg/dL (4.6-5.3) L 08/25/20 04:19 Urine Color Yellow (Yellow) 08/22/20 Unknown Urine Turbidity Clear (Clear) 08/22/20 Unknown Urine pH 7.0 (5.0-7.0) 08/22/20 Unknown Ur Specific [place] 1.017 (1.003-1.030) 08/22/20 Unknown Urine Protein <15 mg/dl mg/dL (Negative) 08/22/20 Unknown Urine Glucose (UA) Neg mg/dL (Negative) 08/22/20 Unknown Urine Ketones Tr mg/dL (Negative) 08/22/20 Unknown Urine Blood Neg (Negative) 08/22/20 Unknown Urine Nitrite Neg (Negative) 08/22/20 Unknown Urine Bilirubin Neg (Negative) 08/22/20 Unknown Urine Urobilinogen < 2.0 mg/dL (<2.0) 08/22/20 Unknown Ur Leukocyte Esterase Neg (Negative) 08/22/20 Unknown Urine WBC (Auto) 7.0 /HPF (0.0-6.0) H 08/22/20 Unknown Urine RBC (Auto) 1.0 /HPF (0.0-6.0) 08/22/20 Unknown U Epithel Cells (Auto) 3.0 /HPF (0-13.0) 08/22/20 Unknown Urine Mucus Few /HPF 08/22/20 Unknown CSF Appearance Clear 08/16/20 14:18 CSF Color Colorless 08/16/20 14:18 CSF WBC 6 /mm3 (1-10) 08/16/20 14:18 CSF RBC 4 /mm3 (0-0) 08/16/20 14:18 CSF Seg Neutrophils 0 % (0-6) 08/16/20 14:18 CSF Lymphocytes % 90.0 % (40-80) 08/16/20 14:18 CSF Reactive Lymphs 0 % 08/16/20 14:18 CSF Monocytes % 10.0 % (15-45) 08/16/20 14:18 CSF Eosinophils % 0 % 08/16/20 14:18 CSF Basophils 0 % 08/16/20 14:18 CSF Pathologist Review C 08/16/20 14:18 CSF Glucose 60 mg/dL 08/16/20 14:18 CSF Total Protein 94 mg/dL 08/16/20 14:18 CSF VDRL Nonreactive (Nonreactive) 08/16/20 14:18 Vancomycin Trough 4.0 ug/mL (5.0-20.0) L 08/23/20 20:30 Salicylates < 0.3 mg/dL (2.8-20.0) L 07/11/20 21:17 Urine Opiates Screen Presumptive negative 07/11/20 Unknown Urine Methadone Screen Presumptive negative 07/11/20 Unknown Acetaminophen 5.0 ug/mL (10.0-30.0) L 07/11/20 21:17 Ur Barbiturates Screen Presumptive negative 07/11/20 Unknown Ur Phencyclidine Scrn Presumptive negative 07/11/20 Unknown Phenytoin 9.2 ug/mL (10.0-20.0) L 08/24/20 Unknown Ur Amphetamines Screen Presumptive negative 07/11/20 Unknown Valproic Acid 55.9 ug/mL (50-100) 08/24/20 Unknown U Benzodiazepines Scrn Presumptive negative 07/11/20 Unknown Urine Cocaine Screen Presumptive negative 07/11/20 Unknown U Marijuana (THC) Screen Presumptive negative 07/11/20 Unknown Drugs of Abuse Note Disclamer 07/11/20 Unknown C. difficile Tox (PCR) Positive (Negative) 08/24/20 Unknown Coronavirus (PCR) Negative (Negative) 08/23/20 10:18 Enterovirus (PCR) Cmmt See scanned result 08/16/20 14:18 HSV I DNA PCR See scanned result 08/16/20 14:18 HSV II DNA PCR See scanned result 08/16/20 14:18 VZV (Qnt-PCR) See scanned result 08/16/20 14:18 Ledesma/IV: Voiding Method Indwelling Catheter IV Catheter Type [Right Upper PICC Line arm] IV Catheter Type [Right INT / Saline Lock Antecubital] IV Catheter Type [Left Forearm INT / Saline Lock ] IV Catheter Type [Right Hand] INT / Saline Lock IV Catheter Type [Right INT / Saline Lock Forearm] IV Catheter Type [Left Hand] INT / Saline Lock Active Medications - Current Medications Current Medications: Generic Name Dose Route Start Last Admin Trade Name Freq PRN Reason Stop Dose Admin Acetaminophen 650 mg 08/24/20 09:00 08/24/20 15:06 Tylenol PO 650 mg Q4H PRN Administration TEMP > 101 Lipase/Protease/Amylase 1 each 07/22/20 07:44 08/14/20 10:25 Pancreaze 10,500 Unit FEEDTUBE 1 each PRN PRN Administration For Clogged Feeding Tube Haloperidol Lactate 5 mg 07/18/20 13:15 07/21/20 22:06 Haldol IM 5 mg Q6H PRN Administration Agitation Heparin Sodium (Porcine) 5,000 unit 07/12/20 10:00 08/25/20 17:39 Heparin SUB-Q 5,000 unit Q8H KEITH Administration Hydrophilic Ointment 1 applic 08/21/20 18:21 Vaseline Lip Therapy TP Q2HR PRN Dry Lips Propofol 1,000 mg in 100 mls @ 1.524 mls/hr 08/21/20 20:00 Diprivan 10 Mg/Ml IV TITR KEITH Protocol 5 MCG/KG/MIN Dopamine HCl/Dextrose 800 mg in 250 mls @ 1.905 mls/hr 08/22/20 05:00 08/25/20 11:03 Intropin Drip 800 Mg/D5w 250 Ml IV 2 mcg/kg/min TITR KEITH 1.905 mls/hr Administration Protocol 2 MCG/KG/MIN Phenytoin 100 mg/ Sodium 102 mls @ 408 mls/hr 08/22/20 10:00 08/25/20 14:26 Chloride IV 408 mls/hr Q8HR KEITH Administration Lorazepam 100 mg/ Sodium 100 mls @ 1 mls/hr 08/22/20 12:00 08/25/20 15:57 Chloride/ Miscellaneous IV 1 mg/hr Information TITR KEITH 1 mls/hr Administration Protocol 1 MG/HR Potassium Chloride 10 meq in 100 mls @ 100 mls/hr 08/25/20 21:00 Kcl 10meq/100ml IV 08/25/20 22:59 Q1H [facility] Insulin Human Regular 0 unit 07/23/20 09:00 08/25/20 18:37 Humulin R SUB-Q Not Given Q6HR KEITH Protocol Lacosamide 200 mg 08/21/20 22:00 08/25/20 10:39 Vimpat PO 200 mg Q12HR KEITH Administration Lansoprazole 30 mg 08/26/20 10:00 Prevacid Solutab FEEDTUBE QDAY KEITH Levetiracetam 1,500 mg 08/21/20 22:00 08/25/20 10:40 Keppra PO 1,500 mg BID KEITH Administration Lorazepam 2 mg 08/06/20 05:05 08/22/20 08:05 Ativan IV 2 mg Q4H PRN Administration Agitation Lorazepam 2 mg 08/22/20 11:10 08/22/20 11:18 Ativan IV 2 mg Q10MIN PRN Administration Agitation Megestrol Acetate 400 mg 07/22/20 10:00 08/25/20 10:40 Megestrol PO 400 mg QDAY KEITH Administration Multi-Ingred Cream/Lotion/Oil/Oint 1 applic 08/22/20 11:10 Artificial Tears Ophth Oint OU Q4HR PRN Dry Eye(s) Olanzapine 2.5 mg 07/25/20 22:00 08/24/20 21:58 Zyprexa PO 2.5 mg QHS KEITH Administration Ondansetron HCl 4 mg 07/12/20 01:06 Zofran IV Q8H PRN Nausea And Vomiting Potassium Chloride 40 meq 08/25/20 20:24 Potassium Chloride FEEDTUBE 08/25/20 20:25 ONCE ONE Simple Syrup 15 ml 07/22/20 07:44 Simple Syrup FEEDTUBE PRN PRN Hypoglycemia Simple Syrup 30 ml 07/22/20 07:44 Simple Syrup FEEDTUBE PRN PRN Hypoglycemia Sodium Bicarbonate 325 mg 07/22/20 07:44 Sodium Bicarbonate FEEDTUBE PRN PRN For Clogged Feeding Tube Valproic Acid 1,000 mg 08/18/20 22:00 08/25/20 10:39 Depakene Liq FEEDTUBE 1,000 mg Q12HR KEITH Administration Vancomycin HCl 250 mg 08/24/20 20:00 08/25/20 17:40 Vancomycin Po PO 250 mg Q6HR KEITH Administration Nutrition/Malnutrition Assess - Dietary Evaluation Nutrition/Malnutrition Findings: Nutrition Notes Start: 07/12/20 11:40 Freq: Status: Active Protocol: Document 08/24/20 11:45 AL (Rec: 08/24/20 11:57 AL [email or web address]) Co-Sign 08/24/20 11:45 MK Nutrition Notes Initial or Follow up Reassessment Other Pertinent Diagnosis C. diff (+), AMS, Rhabdomyolysis, dehydration, Hx of stroke Current Diet Nepro 1.8 at 30 ml/hr Labs/Tests Reviewed Pertinent Medications Reviewed Height 5 ft Weight 52 kg [place] Body Weight (kg) 45.45 BMI 22.4 Weight Status Appropriate Subjective/Other Information Pt tube feed is running at goal rate. K labs dropped low and pt was given KCl via IVF. K labs now WNL. Will switch pt back to Osmolite as a result Percent of energy/protein needs met: 100%/75% Burn Absent Trauma Absent GI Symptoms None Current % PO Negligible Minimum of two criteria No Energy Intake (severe) < or equal to 50% Estimated Energy Requirement > or equal to 5 days #1 Nutrition Diagnosis Inadequate oral intake Diagnosis Progress(for reassessment Continues documentation) Is patient on ventilator? Yes Is Patient Ambulatory and/or Out of Bed No REE-([facility]-confined to bed) 1213.032 Calculation Used for Recommendations [facility] Additional Notes Protein Needs 70-105 g/day (1. 2-2 g/kg) Fluid Needs: 1ml/kcal Nutrition Intervention Change Diet Order: Change TF to Osmolite 1.5 Nutrition Support: Osmolite 1.5 at 35 ml/hr. For Hyponatremia, flush 50 ml q4h Once resolved, flush 100 ml q4h Kcal 1,260 Protein (gm) 53 Fluid (mL) 640 Goal #1 New TF tolerance Goal #2 Meet at least 75% of total energy and protein needs via TF Anticipated Discharge Needs: Recommend Jevity 1.2 bolus 5 cans/day: Breakfast 2 cans ( 474ml), Lunch 2 cans (474ml), Dinner 1 can (237ml) with flush 100ml before and after bolus. [ End ] Follow-Up By: 08/28/20 Additional Comments FU for TF tolerance, intakes, and labs.
[2020-08-25] MEDS: POTASSIUM CHLORIDE 10 MEQ 10 MEQ/100 ML BAG IV SCH (22:49)
[2020-08-26] MEDS: POTASSIUM CHLORIDE 10 MEQ 10 MEQ/100 ML BAG IV SCH (00:07)
[2020-08-26] MEDS: HEPARIN 5,000 UNIT/1 ML VIAL SUB-Q SCH ×4 (00:14→17:20)
[2020-08-26] MEDS: INSULIN REGULAR, HUMAN 100 UNIT/ML 3ML VIAL SUB-Q SCH ×4 (00:15→17:57)
[2020-08-26] MEDS: VANCOMYCIN 250 MG/10 ML ORAL LIQD PO SCH ×4 (00:25→17:20)
--- NOTE | 2020-08-26 03:10 | XRay Report ---
CHEST 1 VIEW 08/26/2020 2:48 AM INDICATION / CLINICAL INFORMATION: follow up respiratory failure. COMPARISON: 08/25/20 FINDINGS: SUPPORT DEVICES: Unchanged. HEART / MEDIASTINUM: Stable. LUNGS / PLEURA: Left basilar pleural-parenchymal density is stable. No pneumothorax. ADDITIONAL FINDINGS: No significant additional findings. IMPRESSION: 1. No significant change. Signer Name: Shubham Nunez MD Signed: 08/26/2020 3:06 AM Workstation Name: [id number]
[2020-08-26 04:28] LABS: ABG Base Excess 1.2 mmol/L (-2.0-3.0); ABG HCO3 23.3 mmol/L (20.0-26.0); ABG Methemoglobin 0.5 % (0.0-1.5); ABG Oxygen Saturation 97.9 % (95.0-99.0); ABG PH 7.523 pH Units (7.350-7.450); ABG PO2 98.2 mm Hg (80.0-90.0)
[2020-08-26] MEDS: PHENYTOIN 100 MG in SODIUM CHLORIDE 0.9% 100 ML IV SCH ×3 (06:11→22:20)
[2020-08-26] MEDS: VALPROIC ACID 250 MG/5 ML ORAL LIQD FEEDTUBE SCH ×2 (11:03→22:21)
[2020-08-26] MEDS: levETIRAcetam 500 MG/5 ML ORAL LIQD PO SCH ×2 (11:03→22:21)
[2020-08-26] MEDS: LACOSAMIDE 100 MG TAB PO SCH ×2 (11:04→22:21)
[2020-08-26] MEDS: MEGESTROL 400 MG/10 ML ORAL LIQD PO SCH (11:04)
[2020-08-26] MEDS: LANSOPRAZOLE 30 MG SOLUTAB FEEDTUBE SCH (11:05)
--- NOTE | 2020-08-26 11:21 | Progress Note ---
Assessment and Plan Cultures: Blood culture on 07/11/2020 no growth Urine culture on 07/11/2020 no growth CSF culture 08/16/2020 no growth Tracheal aspirate date 08/22/2020 usual respiratory adarsh Assessment: 60 years old female with a schizoaffective disorder admitted on 07/11/2020 due to altered mental status/confusion and poor p.o. intake found to have intractable seizures within a prolonged hospital stay with intractable seizures rhabdomyolysis, C. difficile colitis on 07/20/2020, catatonia, poor p.o. intake, recent pneumonia, now with: #Sepsis with septic shock: Not present on admission with fever, tachycardia, hypotension, on dopamine drip; source C. difficile colitis/recurrent. CXR does not show pneumonia. #Acute respiratory failure: Intubated for airway protection. #Recurrent C. difficile colitis: Initial C. difficile colitis on 07/20/2020 treated with vancomycin from 07/20/2020 until 08/03/2020. Patient then received cefepime and vancomycin IV for pneumonia on 08/20/2020. #Previous pneumonia: Treated with cefepime and vancomycin. CXR 08/26/2020 with no pneumonia #Intractable seizures: Per neurology #Schizo affective disorder with catatonia: Per psych #Electrolytes imbalance: Per primary team. Recommendations: -Continue PO vancomycin, dose increased to 500 mg QID due to ongoing pressor requirements, added IV Flagyl -continue to avoid broad-spectrum antibiotics Dr. Lukasz leavitt tomorrow. Carmella De Oliveira MD, FACP [facility] O: [phone] F: [phone] Subjective Date of service: 08/26/20 Principal diagnosis: C diff status epilepticus Interval history: No fever. Remains on the vent. Diarrhea present per RN, patient with rectal tube. No issues with tube feeding, minimal residuals. Objective - Exam Narrative Exam: Physical Exam: Constitutional: sedated, intubated, on the vent Head, Ears, Nose: Normocephalic, atraumatic. External ears, nose normal Eyes: Conjunctivae/corneas clear. No icterus. No ptosis. Neck: intubated Oral: intubated Cardiovascular: S1, S2 + Respiratory: AE fair bilaterally and equal GI: Soft, bowel sounds +. Rectal tube + Musculoskeletal: No pedal edema, no cyanosis. Skin: No rash or abscess Hem/Lymphatic: No palpable cervical or supraclavicular nodes. No lymphangitis Psych: no agitation Neurological: sedated, intubated, on the vent, exam limited - Constitutional Vitals: Vital Signs Temp Pulse Resp BP Pulse Ox 97.3 F L 92 H 20 99/51 100 08/26/20 03:21 08/26/20 08:44 08/26/20 06:00 08/26/20 08:44 08/26/20 08:44 Temperature -Last 24 Hours Temperature 97.3 F Temperature 98.8 F Temperature 98.7 F Temperature 98.9 F Temperature 98.1 F - Labs CBC & Chem 7: 08/25/20 00:00 08/25/20 00:00 Labs: Abnormal lab results 08/25/20 08/25/20 08/25/20 Range/Units 12:21 17:30 18:13 ABG pH (7.350-7.450) pH Units ABG pO2 (80.0-90.0) mm Hg ABG Hemoglobin (12.0-16.0) gm/dl POC Glucose 131 H 127 H 140 H (70-105) mg/dL 08/26/20 08/26/20 08/26/20 Range/Units 00:05 04:00 05:30 ABG pH 7.523 H (7.350-7.450) pH Units ABG pO2 98.2 H (80.0-90.0) mm Hg ABG Hemoglobin 10.8 L (12.0-16.0) gm/dl POC Glucose 164 H 124 H (70-105) mg/dL
[2020-08-26] MEDS: SODIUM CHLORIDE 0.9% 1000 ML 1,000 ML IV SCH (11:32)
[2020-08-26] MEDS: metroNIDAZOLE/NS 500 MG/100 ML 500 MG/100 ML BAG IV SCH ×2 (12:26→20:45)
--- NOTE | 2020-08-26 13:57 | Progress Note ---
Assessment and Plan Assessment and plan: 60-year-old female patient with schizoaffective disorder with active hallucinations and confusion presented from [place] for altered mental status and poor intake on 07/13. She was found to have rhabdomyolysis and electrolyte imbalances. She then developed C. difficile diarrhea and she has completed her regimen of p.o. vancomycin from 07/20-08/03. RN stated patient had to liquid bowel movements today however patient is on vancomycin. Per policy if patient has the decreased BMs she was not a C. difficile sample. At the time of my exam this afternoon the patient was in her usual state with no focal seizure activity noted. However this evening when neurology examined her she was noted to have another seizure and was given Ativan IV. Antiepileptic medications adjusted. Dr. Nails spoke to Dr. Taylor about need to transfer for continuous EEG. He also recommended every hour neurochecks and intubation. Stat ABG ordered. 07/13; patient's CK levels trending down on 1678, continue IV hydration patient is more alert at times, hallucinating, Noncommunicative, severe hypokalemia, replace per protocol 07/14; potassium level significantly improved today to 3.2, replenish per protocol. CK levels trending down 828, continue IV hydration, monitor electrolytes 07/15; patient refused potassium yesterday today potassium levels again 2.7 We will add KCl to IV fluids, and IV K riders, monitor electrolytes. CK level 425. Refusing to eat confused noncommunicative. Possible inpatient psych admission when medically stable 07/16; rhabdomyolysis resolved, mild electrolyte imbalances, if corrected medic ally stable for inpatient psych placement 07/17: replete K and phosphate. repeat CBc BMP tomorrow. White count needs to be < 10 for inpt psych admission 07/18: cont to have mildly elevated white count, c/o loose stool. will check for C. def - start flagyl and cipro 07/19: White count normal today. change medications to Po. medically stable to go for inpt psych unit. 07/20; positive for C. def. patient not eating properly, refusing meds time to time. Psych now recommended outpt f/u. CM working on placement. Patient remains nonverbal, does not follow any commend and not giving any personal info. 07/21; K 2.0 today, cont to replete, follow BMP, patient remains nonverbal and not cooperative. refuses to eat and meds. cont d51/2NS. if condition doesnot improve will consider TF 07/22: Potassium level persistently remains low, magnesium 1.6 today. Will replete magnesium and potassium. Patient refusing meds and not eating at all per RN report. Totally noncooperative during the encounternot respond to any question. Keeps her eye closing and covering her face with her forearm. Will order for tube feeding and Dobbhoff tube. Continue to follow. We will also add Megace to boost appetite. 07/23: started on TF, follow BMP, change iv fluid to 1/2 NS. patient remains nonverbal 07/24; clinically unchanged, replete K, iv fluid and TF. reconsult psych as patient remains in catatonic phase 07/25: psych recommendation noted, continue tube feeding, continue to replete electrolytes as needed, follow BMP. I strongly believe her severe electrolytes derangement and encephalopathy related to her catatonia, poor oral intake other than any underlying medical conditions. There is no family contact in file, no home address available, patient appeared to be unfunded. barber or beauty shop manager working on placement. 07/26: psych recommendation noted, continue tube feeding, continue to replete electrolytes as needed, follow BMP. I strongly believe her severe electrolytes derangement and encephalopathy related to her catatonia, poor oral intake other than any underlying medical conditions. There is no family contact in file, no home address available, patient appeared to be unfunded. barber or beauty shop manager working on placement. 07/27; continue with tube feeding. There is no family contact in file, no home address available, patient appeared to be unfunded. Case management is following. 07/28; patient still on tube feeding, patient is noncommunicative. I believe her condition is related to her catatonia. Psych is following her. Currently her electrolytes are corrected. There is no family contact in file, no home address available, patient appeared to be unfunded. Case management is following. 07/29 patient is nonverbal, eyes open does not follow simple commands,, still having low-grade fever T-max 100 degrees,, lab results reviewed discussed with RN- still has loose stools, renal case manager notes reviewed, unable to contact family 07/30 no acute events overnight, diarrhea improved, stop IV fluids, disposition to be decided 07/31: fisheries officer presented to the bedside to attempt to fingerprint the patient to identify her. However his machine was not working 08/01:' Per renal case manager note [facility] [employer] has been contacted to help in identifying the patient. On officer is to report to bedside and was instructed to call the renal case manager upon arrival. 08/02/2020 still has diarrhea 08/03/2020 diarrhea improving. Today is the last day of vancomycin 08/04/2020 patient has no diarrhea 08/05: shiftman RN reported patient had a seizure overnight, Ativan was ordered however was not administered because according to the dayshift RN he was reported that the patient "did not need the medication because she was not having a seizure at the moment". Patient remained hyponatremic and hypochloremic and after conversing with the nurse patient was not getting her prescribed dose FWF for hyponatremia which was corrected 08/06: Electrolyte imbalance discontinue, patient still catatonic 08/07: Electrolyte imbalances continue, to physician consent for PEG tube obtained and GI consulted 08/08: PEG scheduled for 08/09 08/09: s/p PEG placement with GI, hyperkalemic (potassium 5.2) s/p HI Kayexalate. 08/11; patient is on PEG tube feeding. C. difficile treated and resolved. Patient still in catatonic state. Pending guardianship. 08/12/2020 patient on PEG tube feeding. Guardianship pending. Pending placement. 08/13: no aucte events reported overnight, gaurdenship pending. 08/14/20: quality and futility of care is questionable, patient not following any commands, pupillary reflex noted, neurology and ethics consult placed 08/15: Neurology recommended LP, EEG, CT head and MRI brain with and without contrast which are all pending. 08/16: Physician consult obtained for LP which was completed today. Bilateral lower extremity x-rays noted no metal and a physician consent was obtained for contrast therefore MRI brain pending. EEG still pending. Patient again has hypochloremia and hyponatrema 08/17: status epilepticus noted on EEG, Neurology recommends transfer for contin ues EEG. 08/19: seizures subsided. No active seizures. Pending placement. 08/20: CXR shows possible PNA, initiated on cefepime and vancomycin 08/21. Discussed with neurologist. Patient needs to be transferred to a tertiary center for continuous EEG monitoring Transfer to [facility] initiated. As per [place], case will be sent to and earliest time for possible transfer will be tomorrow. In the meantime, patient will need intubation and sedation for status as per neurology. Critical care consult plac ed. Vent orders placed. Anesthesia paged. Patient will be going to the ICU. Transfer order placed. Discussed with anesthesia Dr Hawthorne 6:50 PM and told him why patient needs to be intubated immediately. Apparently, patient transfer orders still in progress and patient still on the floors during his evaluation at bedside. Patient cannot be intubated or while on the floor as per anesthesia MD. Patient is to go to ICU and then intubated. 08/22. Overnight events noted. Patient intubated this AM and started on versed. Discussed with [facility], case is still being reviewed. Called [facility] and was told facility do not have continuous EEG monitoring. She remains on multiple seizure medications. Continue BP medications. Neurology is following closely. 08/23. Patient seen and examined at bedside this morning. Patient has been denied transfer by [facility] as no neuro critical care ICU available. [facility] only accepting patients with acute stroke, gabriel or trauma. Placed a c all to [facility] and gave details today. Awaiting callback. Otherwise patient remains sedated. EEG performed yesterday shows significant improvement in status epilepticus. Neurology to review today. 08/24. I discussed with transfer center at [facility] and neurologist Dr. Trivedi requested that latest EEG be reviewed by teleneurology prior to consideration. As patient seizures have subsided, weaning will be on alternative. Neurology notes reviewed-patient to be maintained on sedation for now until it is safe too wean (needs continuous EEG monitoring for this]. I called back transfer center at [facility] was told there are no beds at this time. Patient noted to have Fever overnight. Also has loose watery stools and procalcitonin is elevated. She has been on antibiotics for 4 days now. Repeat chest x-ray shows no new pneumonia. Due to diarrhea, will DC antibiotics for now. Send stool for C. difficile as she had C. difficile earlier during this admission. We will consult ID if C. difficile is positive. Will maintain on current medications for now 08/25. C diff is positive. Started on PO vancomycin. ID consulted. DCed IV antibiotics. Monitor WBC. Will get abdominal CT if no improvement is noted. [facility] but no beds available today. Neurology recommendations appreciated. Will keep sedatives at same dose. 08/26. Patient needs continuous EEG monitoring. Called [facility] and [facility] but still have no beds available. [facility] is not accepting patients except Acute stroke, gabriel and trauma patients. [facility] does not have continuous EEG monitoring. She is still on low dose lorazepam. Discussed with CM to find other hospitals where patient can have the EEG monitoring. In the mean time, patient may need to have titration of sedatives but this may not be possible as per neurology. Neurology not available this weekend to assist. Plan to discuss alternatives with neurology on Thursday. Otherwise, she is still on low dose dopamine and PO vancomycin for recurrent clostridium difficile infection. ID is on board. AM labs not drawn. Labs reordered - Patient Problems ---Status epilepticus Current Visit: Yes Status: Acute Plan to address problem: RN reported seizure activity on on 08/05; Ativan was ordered however was not administered because according to the dayshift RN he was reported that the patient "did not need the medication because she was not having a seizure at the moment". After reviewing nursing notes it is noted that she had reported seizure activity by RN on 08/12 and was given Ativan. Hospitalist was informed No seizure activity reported since Neurology consulted EEG no no status epilepticus Pt is on depakote 1000 mg bid; Keppra 1500 mg bid; vimpat 200 mg iv q12; and now initiated on Fosphentoin (load and maintenance) despite drug-drug interaction on 08/21 per neurology Per neurology: Patient will require transfer to a facility w/ cEEG monitoring for higher level of care as EEG here is intermittently available and intermit tently read at present; increase depakote to 1000 mg bid (bolus of 500 mg via peg); increase Keppra to 1500 mg bid; initiate vimpat 200 mg iv q12; s/p Ativan 1 mg IV x 1 dose given; pending MRI Brain w/ wo contrast. Recommend q1 hour neurochecks. 08/19 it was noted that patient's seizure activity subsided therefore was not transferred to tertiary care 08/21 noted to have a focal seizure when neurology was examining the patient, given Ativan x1 and started on a third antiepileptic. Transfer to [facility] reinitiated today. Discussed [facility] neurology - patient will need intubation and sedation. Discussed with anesthesia and medical officer. Transfer order placed. Vent bundle ordered. -08/22. Patient intubated this AM. Had another episode of seizure early AM as per RN prior to intubation. Neurology currently following. Patient is on Depakote, Keppra, fosphenytoin and Vimpat. -08/23. EEG shows improvement after sedation and intubation. Teleneurology following -08/24 - 08/25. No seizures noted. Still on lorazepam drip. Will order EEG repeat. -08/26. No beds at [facility]. [facility] has no continuous EEG monitor. [place] only acceptinig stroke patients. Discussed with CM to see if he can find hospitals that have EEG capability here in [place]. ---Schizoaffective disorder Current Visit: Yes Status: Chronic Plan to address problem: Patient admitted catatonic state and is nonverbal and not following commands Psychiatric consult completed; does not recommend inpatient at this time Haldol as needed, Depakote, Zyprexa Supportive care ---Hyponatremia Current Visit: Yes Status: Resolved Plan to address problem: Admit sodium 142 07/31 134, slight hyponatremia at this time no intervention needed, 08/01 Na 136 however she has remained hyponatremic Hydration with free water flush; 50ml q6 hours while hyponatremic-> informed RN on 08/06 08/07 sodium 136 08/09 sodium 135 Trend BMP 08/10 sodium 141 08/15 sodium 134; informed RN FWF are ordered to be 50 mL every 6 while hyponatremic 08/16 sodium 131, nutrition notes reviewed and FWF seems to be changed 100 mL q4 hours 08/17 sodium 134 08/20 hyponatremia resolved --Metabolic encephalopathy Current Visit: Yes Status: Acute Plan to address problem: Multifactorial , schizoaffective disorder and withdrawal seizures 07/11 CT head Normal nonenhanced CT scan of the brain Patient came from [place], psych evaluation noted Psych recommends outpt f/u 08/14 neurology consult: Recommends obtaining EEG, LP, CTA head, MRI brain with and without contrast 08/15 CT head shows no acute abnormalities and no changes since 07/11/202008/16: LP under fluoroscopy completed. CSF analysis shows no evidence of encephalitis 08/16 MRI brain with/without contrast pending: Shows no acute abnormalities Supportive care -Now on multiple antiseizure medications. Intubated and sedated. Plan for transfer to [address] [place] [address] initiated --Hypochloremia Current Visit: Yes Status: Resolved Plan to address problem: 07/31 chloride 97, 08/02 chloride 97.9, 08/06 chloride 97.0, 08/07 chloride 97.0, 08/09 chloride 98, 08/16 Cl 91.6, 08/20 Cl 94, 08/21 resolved Patient on tube feedings with FWF We will continue to monitor Trend BMP --Clostridium difficile Diarrhea Current Visit: Yes Status: Acute Plan to address problem: -Stop IV antibiotics -PO vancomycin 25mg QID for 10 days -ID consulted. --Discharge planning issues Current Visit: Yes Status: Acute Plan to address problem: Patient's identity is not confirmed [facility] has been contacted to aid in identification however unsuccessful [facility] Department have been contacted Inpatient records requested from [facility] again on 08/02 Risk-management made aware of patient again on 08/02 Patient identification confirmed with [facility] Attempted to contact children, CM has an email address and an email was sent over the weekend however there is been no reply 08/07: 2 physician consent for PEG tube obtained and GI consulted for PEG tube placement 08/09: PEG tube placed, resume tube feeds within 4 hours [facility] in the process of assuming guardianship over the patient for placement 08/14 ethics consulted 08/17 Dr. Nails requested a transfer to another facility for continuous EEG as the patient may be in status epilepticus. Patient seizures reportedly improved and transfer was initiated 08/21 transfer to [facility] initiated today as patient still having seizure episodes. -08/23. I discussed with transfer center at [facility] and neurologist Dr. Trivedi requested that latest EEG be reviewed by telemetry neurology. -08/24-08/26. No beds available at [facility]. No beds available at [facility]. CM to see if there are other hospitals capable of getting patient perform continuous EEG monitoring. --DVT prophylaxis Current Visit: Yes Status: Acute Plan to address problem: SCDs to bilateral lower extremities while in bed Heparin subcu History Interval history: Patieint still intubated. On sedatives. No seizures noted overnight Hospitalist Physical - Physical exam Narrative exam: VITAL SIGNS: Reviewed. GENERAL: Sedated and intubated HEAD: No signs of head trauma. EYES: Pupils are equal. MOUTH: Orotracheal tube NECK: No adenopathy, no JVD. CHEST: Diminished breath sounds CARDIAC: Regular rate and rhythm. S1 and S2, without murmurs, gallops, or rubs. VASCULAR: Slight edema ABDOMEN: Soft, non tender and non distended. No rebound or guarding, and no masses palpated. Bowel Sounds normal. NEUROLOGIC EXAM: Sedated SKIN: No obvious lesions - Constitutional Vitals: Temp Pulse Resp BP Pulse Ox 97.3 F L 106 H 20 106/61 99 08/26/20 03:21 08/26/20 12:51 08/26/20 06:00 08/26/20 12:51 08/26/20 12:51 General appearance: Present: no acute distress HEART Score - HEART Score Risk factors: 1-2 risk factors Troponin: Troponin T < 0.010 ng/mL (0.00-0.029) 07/11/20 21:17 Troponin: < normal limit - Critical Actions Critical Actions: 0-3 pts:0.9-1.7%risk of adverse cardiac event.Candidate for discharge Results - Labs CBC & Chem 7: 08/25/20 00:00 08/25/20 00:00 Labs: Laboratory Last Values WBC 17.5 K/mm3 (4.5-11.0) H 08/25/20 00:00 RBC 3.01 M/mm3 (3.65-5.03) L 08/25/20 00:00 Hgb 9.9 gm/dl (10.1-14.3) L 08/25/20 00:00 Hct 28.7 % (30.3-42.9) L 08/25/20 00:00 MCV 96 fl (79-97) 08/25/20 00:00 MCH 33 pg (28-32) H 08/25/20 00:00 MCHC 35 % (30-34) H 08/25/20 00:00 RDW 15.5 % (13.2-15.2) H 08/25/20 00:00 Plt Count 351 K/mm3 (140-440) 08/25/20 00:00 Lymph % (Auto) 13.2 % (13.4-35.0) L 08/25/20 00:00 [place] % (Auto) 5.3 % (0.0-7.3) 08/25/20 00:00 Eos % (Auto) 1.4 % (0.0-4.3) 08/25/20 00:00 Baso % (Auto) 0.3 % (0.0-1.8) 08/25/20 00:00 Lymph # (Auto) 2.3 K/mm3 (1.2-5.4) 08/25/20 00:00 [place] # (Auto) 0.9 K/mm3 (0.0-0.8) H 08/25/20 00:00 Eos # (Auto) 0.2 K/mm3 (0.0-0.4) 08/25/20 00:00 Baso # (Auto) 0.0 K/mm3 (0.0-0.1) 08/25/20 00:00 Add Manual Diff Complete 08/24/20 09:56 Total Counted 100 08/24/20 09:56 Seg Neutrophils % 79.8 % (40.0-70.0) H 08/25/20 00:00 Seg Neuts % (Manual) 82.0 % (40.0-70.0) H 08/24/20 09:56 Band Neutrophils % 3.0 % 08/24/20 09:56 Lymphocytes % (Manual) 6.0 % (13.4-35.0) L 08/24/20 09:56 Reactive Lymphs % (Man) 0 % 08/24/20 09:56 Monocytes % (Manual) 5.0 % (0.0-7.3) 08/24/20 09:56 Eosinophils % (Manual) 2.0 % (0.0-4.3) 08/24/20 09:56 Basophils % (Manual) 0 % (0.0-1.8) 08/24/20 09:56 Metamyelocytes % 2.0 % 08/24/20 09:56 Myelocytes % 0 % 08/24/20 09:56 Promyelocytes % 0 % 08/24/20 09:56 Blast Cells % 0 % 08/24/20 09:56 Nucleated RBC % Not Reportable 08/24/20 09:56 Seg Neutrophils # 14.0 K/mm3 (1.8-7.7) H 08/25/20 00:00 Seg Neutrophils # Man 15.3 K/mm3 (1.8-7.7) H 08/24/20 09:56 Band Neutrophils # 0.6 K/mm3 08/24/20 09:56 Lymphocytes # (Manual) 1.1 K/mm3 (1.2-5.4) L 08/24/20 09:56 Abs React Lymphs (Man) 0.0 K/mm3 08/24/20 09:56 Monocytes # (Manual) 0.9 K/mm3 (0.0-0.8) H 08/24/20 09:56 Eosinophils # (Manual) 0.4 K/mm3 (0.0-0.4) 08/24/20 09:56 Basophils # (Manual) 0.0 K/mm3 (0.0-0.1) 08/24/20 09:56 Metamyelocytes # 0.4 K/mm3 08/24/20 09:56 Myelocytes # 0.0 K/mm3 08/24/20 09:56 Promyelocytes # 0.0 K/mm3 08/24/20 09:56 Blast Cells # 0.0 K/mm3 08/24/20 09:56 WBC Morphology Not Reportable 08/24/20 09:56 Hypersegmented Neuts Not Reportable 08/24/20 09:56 Hyposegmented Neuts Not Reportable 08/24/20 09:56 Hypogranular Neuts Not Reportable 08/24/20 09:56 Smudge Cells Not Reportable 08/24/20 09:56 Toxic Granulation Not Reportable 08/24/20 09:56 Toxic Vacuolation Not Reportable 08/24/20 09:56 Dohle Bodies Not Reportable 08/24/20 09:56 Pelger-Huet Anomaly Not Reportable 08/24/20 09:56 Rashad Rods Not Reportable 08/24/20 09:56 Platelet Estimate Consistent w auto 08/24/20 09:56 Clumped Platelets Not Reportable 08/24/20 09:56 Plt Clumps, EDTA Not Reportable 08/24/20 09:56 Large Platelets Not Reportable 08/24/20 09:56 Giant Platelets Not Reportable 08/24/20 09:56 Platelet Satelliting Not Reportable 08/24/20 09:56 Plt Morphology Comment Not Reportable 08/24/20 09:56 RBC Morphology Not Reportable 08/24/20 09:56 Dimorphic RBCs Not Reportable 08/24/20 09:56 Polychromasia Not Reportable 08/24/20 09:56 Hypochromasia Not Reportable 08/24/20 09:56 Poikilocytosis Not Reportable 08/24/20 09:56 Anisocytosis 1+ 08/24/20 09:56 Microcytosis Not Reportable 08/24/20 09:56 Macrocytosis Not Reportable 08/24/20 09:56 Spherocytes Not Reportable 08/24/20 09:56 Pappenheimer Bodies Not Reportable 08/24/20 09:56 Sickle Cells Not Reportable 08/24/20 09:56 Target Cells Not Reportable 08/24/20 09:56 Tear Drop Cells Not Reportable 08/24/20 09:56 Ovalocytes Not Reportable 08/24/20 09:56 Helmet Cells Not Reportable 08/24/20 09:56 Farrell-[place] Bodies Not Reportable 08/24/20 09:56 Ellsworth Rings Not Reportable 08/24/20 09:56 Ketan Cells Not Reportable 08/24/20 09:56 Bite Cells Not Reportable 08/24/20 09:56 Crenated Cell Not Reportable 08/24/20 09:56 Elliptocytes Not Reportable 08/24/20 09:56 Acanthocytes (Spur) Not Reportable 08/24/20 09:56 Rouleaux Not Reportable 08/24/20 09:56 Hemoglobin C Crystals Not Reportable 08/24/20 09:56 Schistocytes Not Reportable 08/24/20 09:56 Malaria parasites Not Reportable 08/24/20 09:56 Ed Bodies Not Reportable 08/24/20 09:56 Hem Pathologist Commnt No 08/24/20 09:56 PT 12.5 Sec. (12.2-14.9) 08/15/20 15:26 INR 0.92 (0.87-1.13) 08/15/20 15:26 APTT 20.4 Sec. (24.2-36.6) L 08/15/20 15:26 ABG pH 7.523 pH Units (7.350-7.450) H 08/26/20 04:00 POC ABG pCO2 28.2 mmHg (32.0-48.0) L 08/25/20 04:19 ABG pCO2 29.0 mm Hg 08/26/20 04:00 POC ABG pO2 88.3 mmHg (83-108) 08/25/20 04:19 ABG pO2 98.2 mm Hg (80.0-90.0) H 08/26/20 04:00 POC ABG HCO3 23.9 08/25/20 04:19 ABG HCO3 23.3 mmol/L (20.0-26.0) 08/26/20 04:00 ABG O2 Saturation 97.9 % (95.0-99.0) 08/26/20 04:00 ABG O2 Content 14.8 (0.0-44) 08/26/20 04:00 POC ABG Base Excess 2.1 08/25/20 04:19 ABG Base Excess 1.2 mmol/L (-2.0-3.0) 08/26/20 04:00 ABG Hemoglobin 10.8 gm/dl (12.0-16.0) L 08/26/20 04:00 ABG Oxyhemoglobin 98.9 (94-98) H 08/22/20 11:18 ABG Carboxyhemoglobin 1.3 % (0.0-5.0) 08/26/20 04:00 ABG Methemoglobin 0.5 % (0.0-1.5) 08/26/20 04:00 ABG Sodium 131.6 mmol/L (136.0-145.0) L 08/25/20 04:19 ABG Potassium 2.9 mmol/L (3.40-4.50) L 08/25/20 04:19 ABG Chloride 104.0 mmol/L (98-107) 08/25/20 04:19 ABG Glucose 120 mg/dL (65-95) H 08/25/20 04:19 Oxyhemoglobin 96.2 % (95.0-99.0) 08/26/20 04:00 Carboxyhemoglobin 0.4 (0.5-1.5) L 08/22/20 11:18 FiO2 30 % 08/26/20 04:00 Sodium 138 mmol/L (137-145) 08/25/20 00:00 Potassium 3.1 mmol/L (3.6-5.0) L 08/25/20 00:00 Chloride 100.7 mmol/L (98-107) 08/25/20 00:00 Carbon Dioxide 23 mmol/L (22-30) 08/25/20 00:00 Anion Gap 17 mmol/L 08/25/20 00:00 BUN 13 mg/dL (7-17) 08/25/20 00:00 Creatinine 0.2 mg/dL (0.6-1.2) L 08/25/20 00:00 Estimated GFR > 60 ml/min 08/25/20 00:00 BUN/Creatinine Ratio 65 % 08/25/20 00:00 Glucose 116 mg/dL (65-100) H 08/25/20 00:00 POC Glucose 135 mg/dL (70-105) H 08/26/20 12:27 Lactic Acid 1.50 mmol/L (0.7-2.0) 07/12/20 00:04 Phosphorus 3.10 mg/dL (2.5-4.5) 07/24/20 06:00 Magnesium 2.10 mg/dL (1.7-2.3) 07/24/20 06:00 Calcium 8.0 mg/dL (8.4-10.2) L 08/25/20 00:00 Direct Bilirubin < 0.2 mg/dL (0-0.2) 07/13/20 09:33 Total Bilirubin < 0.20 mg/dL (0.1-1.2) 08/25/20 00:00 Total Creatine Kinase 102 units/L (30-135) 07/17/20 05:21 CK-MB (CK-2) 9.2 ng/mL (0.0-4.0) H 07/12/20 15:13 AST 58 units/L (5-40) H 08/25/20 00:00 ALT 40 units/L (7-56) 08/25/20 00:00 CK-MB (CK-2) Rel Index 0.4 (0-4) 07/12/20 15:13 Alkaline Phosphatase 65 units/L (35-129) 08/25/20 00:00 Troponin T < 0.010 ng/mL (0.00-0.029) 07/11/20 21:17 Ammonia 50.0 umol/L (25-60) 08/23/20 20:30 Total Protein 5.6 g/dL (6.3-8.2) L 08/25/20 00:00 Albumin 2.0 g/dL (3.9-5) L 08/25/20 00:00 Albumin/Globulin Ratio 0.6 % 08/25/20 00:00 Procalcitonin 2.78 ng/mL (<0.15) 08/22/20 15:30 Arterial Blood Glucose 120 mg/dL (65-95) H 08/25/20 04:19 Arterial Blood Ionized Calcium 4.4 mg/dL (4.6-5.3) L 08/25/20 04:19 Urine Color Yellow (Yellow) 08/22/20 Unknown Urine Turbidity Clear (Clear) 08/22/20 Unknown Urine pH 7.0 (5.0-7.0) 08/22/20 Unknown Ur Specific [place] 1.017 (1.003-1.030) 08/22/20 Unknown Urine Protein <15 mg/dl mg/dL (Negative) 08/22/20 Unknown Urine Glucose (UA) Neg mg/dL (Negative) 08/22/20 Unknown Urine Ketones Tr mg/dL (Negative) 08/22/20 Unknown Urine Blood Neg (Negative) 08/22/20 Unknown Urine Nitrite Neg (Negative) 08/22/20 Unknown Urine Bilirubin Neg (Negative) 08/22/20 Unknown Urine Urobilinogen < 2.0 mg/dL (<2.0) 08/22/20 Unknown Ur Leukocyte Esterase Neg (Negative) 08/22/20 Unknown Urine WBC (Auto) 7.0 /HPF (0.0-6.0) H 08/22/20 Unknown Urine RBC (Auto) 1.0 /HPF (0.0-6.0) 08/22/20 Unknown U Epithel Cells (Auto) 3.0 /HPF (0-13.0) 08/22/20 Unknown Urine Mucus Few /HPF 08/22/20 Unknown CSF Appearance Clear 08/16/20 14:18 CSF Color Colorless 08/16/20 14:18 CSF WBC 6 /mm3 (1-10) 08/16/20 14:18 CSF RBC 4 /mm3 (0-0) 08/16/20 14:18 CSF Seg Neutrophils 0 % (0-6) 08/16/20 14:18 CSF Lymphocytes % 90.0 % (40-80) 08/16/20 14:18 CSF Reactive Lymphs 0 % 08/16/20 14:18 CSF Monocytes % 10.0 % (15-45) 08/16/20 14:18 CSF Eosinophils % 0 % 08/16/20 14:18 CSF Basophils 0 % 08/16/20 14:18 CSF Pathologist Review C 08/16/20 14:18 CSF Glucose 60 mg/dL 08/16/20 14:18 CSF Total Protein 94 mg/dL 08/16/20 14:18 CSF VDRL Nonreactive (Nonreactive) 08/16/20 14:18 Vancomycin Trough 4.0 ug/mL (5.0-20.0) L 08/23/20 20:30 Salicylates < 0.3 mg/dL (2.8-20.0) L 07/11/20 21:17 Urine Opiates Screen Presumptive negative 07/11/20 Unknown Urine Methadone Screen Presumptive negative 07/11/20 Unknown Acetaminophen 5.0 ug/mL (10.0-30.0) L 07/11/20 21:17 Ur Barbiturates Screen Presumptive negative 07/11/20 Unknown Ur Phencyclidine Scrn Presumptive negative 07/11/20 Unknown Phenytoin 9.2 ug/mL (10.0-20.0) L 08/24/20 Unknown Ur Amphetamines Screen Presumptive negative 07/11/20 Unknown Valproic Acid 55.9 ug/mL (50-100) 08/24/20 Unknown U Benzodiazepines Scrn Presumptive negative 07/11/20 Unknown Urine Cocaine Screen Presumptive negative 07/11/20 Unknown U Marijuana (THC) Screen Presumptive negative 07/11/20 Unknown Drugs of Abuse Note Disclamer 07/11/20 Unknown C. difficile Tox (PCR) Positive (Negative) 08/24/20 Unknown Coronavirus (PCR) Negative (Negative) 08/23/20 10:18 Enterovirus (PCR) Cmmt See scanned result 08/16/20 14:18 HSV I DNA PCR See scanned result 08/16/20 14:18 HSV II DNA PCR See scanned result 08/16/20 14:18 VZV (Qnt-PCR) See scanned result 08/16/20 14:18 Ledesma/IV: Voiding Method Indwelling Catheter IV Catheter Type [Right Upper PICC Line arm] IV Catheter Type [Right INT / Saline Lock Antecubital] IV Catheter Type [Left Forearm INT / Saline Lock ] IV Catheter Type [Right Hand] INT / Saline Lock IV Catheter Type [Right INT / Saline Lock Forearm] IV Catheter Type [Left Hand] INT / Saline Lock Active Medications - Current Medications Current Medications: Generic Name Dose Route Start Last Admin Trade Name Freq PRN Reason Stop Dose Admin Acetaminophen 650 mg 08/24/20 09:00 08/24/20 15:06 Tylenol PO 650 mg Q4H PRN Administration TEMP > 101 Lipase/Protease/Amylase 1 each 07/22/20 07:44 08/14/20 10:[address] 10,500 Unit FEEDTUBE 1 each PRN PRN Administration For Clogged Feeding Tube Haloperidol Lactate 5 mg 07/18/20 13:15 07/21/20 22:06 Haldol IM 5 mg Q6H PRN Administration Agitation Heparin Sodium (Porcine) 5,000 unit 07/12/20 10:00 08/26/20 11:30 Heparin SUB-Q 5,000 unit Q8H KEITH Administration Hydrophilic Ointment 1 applic 08/21/20 18:21 Vaseline Lip Therapy TP Q2HR PRN Dry Lips Propofol 1,000 mg in 100 mls @ 1.524 mls/hr 08/21/20 20:00 Diprivan 10 Mg/Ml IV TITR KEITH Protocol 5 MCG/KG/MIN Dopamine HCl/Dextrose 800 mg in 250 mls @ 1.905 mls/hr 08/22/20 05:00 08/26/20 11:30 Intropin Drip 800 Mg/D5w 250 Ml IV 6 mcg/kg/min TITR KEITH 5.715 mls/hr Titration Protocol 2 MCG/KG/MIN Phenytoin 100 mg/ Sodium 102 mls @ 408 mls/hr 08/22/20 10:00 08/26/20 06:11 Chloride IV 408 mls/hr Q8HR KEITH Administration Lorazepam 100 mg/ Sodium 100 mls @ 1 mls/hr 08/22/20 12:00 08/25/20 15:57 Chloride/ Miscellaneous IV 1 mg/hr Information TITR KEITH 1 mls/hr Administration Protocol 1 MG/HR Sodium Chloride 1,000 mls @ 75 mls/hr 08/26/20 08:30 08/26/20 11:32 Nacl 0.9% 1000 Ml IV 75 mls/hr DIRECT KEITH Administration Metronidazole 500 mg in 100 mls @ 100 mls/hr 08/26/20 12:00 08/26/20 12:26 Flagyl 500 Mg/100 Ml IV 100 mls/hr Q8H KEITH Administration Protocol Insulin Human Regular 0 unit 07/23/20 09:00 08/26/20 12:27 Humulin R SUB-Q Not Given Q6HR KEIHT Protocol Lacosamide 200 mg 08/21/20 22:00 08/26/20 11:04 Vimpat PO 200 mg Q12HR KEITH Administration Lansoprazole 30 mg 08/26/20 10:00 08/26/20 11:05 Prevacid Solutab FEEDTUBE 30 mg QDAY KEITH Administration Levetiracetam 1,500 mg 08/21/20 22:00 08/26/20 11:03 Keppra PO 1,500 mg BID KEITH Administration Lorazepam 2 mg 08/06/20 05:05 08/22/20 08:05 Ativan IV 2 mg Q4H PRN Administration Agitation Lorazepam 2 mg 08/22/20 11:10 08/22/20 11:18 Ativan IV 2 mg Q10MIN PRN Administration Agitation Megestrol Acetate 400 mg 07/22/20 10:00 08/26/20 11:04 Megestrol PO 400 mg QDAY KEITH Administration Multi-Ingred Cream/Lotion/Oil/Oint 1 applic 08/22/20 11:10 Artificial Tears Ophth Oint OU Q4HR PRN Dry Eye(s) Olanzapine 2.5 mg 07/25/20 22:00 08/25/20 22:06 Zyprexa PO 2.5 mg QHS KEITH Administration Ondansetron HCl 4 mg 07/12/20 01:06 Zofran IV Q8H PRN Nausea And Vomiting Simple Syrup 15 ml 07/22/20 07:44 Simple Syrup FEEDTUBE PRN PRN Hypoglycemia Simple Syrup 30 ml 07/22/20 07:44 Simple Syrup FEEDTUBE PRN PRN Hypoglycemia Sodium Bicarbonate 325 mg 07/22/20 07:44 Sodium Bicarbonate FEEDTUBE PRN PRN For Clogged Feeding Tube Valproic Acid 1,000 mg 08/18/20 22:00 08/26/20 11:03 Depakene Liq FEEDTUBE 1,000 mg Q12HR KEITH Administration Vancomycin HCl 500 mg 08/26/20 12:00 08/26/20 11:33 Vancomycin Po PO 500 mg Q6HR KEITH Administration Nutrition/Malnutrition Assess - Dietary Evaluation Nutrition/Malnutrition Findings: Nutrition Notes Start: 07/12/20 11:40 Freq: Status: Active Protocol: Document 08/24/20 11:45 AL (Rec: 08/24/20 11:57 AL [email or web address]) Co-Sign 08/24/20 11:45 MK Nutrition Notes Initial or Follow up Reassessment Other Pertinent Diagnosis C. diff (+), AMS, Rhabdomyolysis, dehydration, Hx of stroke Current Diet Nepro 1.8 at 30 ml/hr Labs/Tests Reviewed Pertinent Medications Reviewed Height 5 ft Weight 52 kg [place] Body Weight (kg) 45.45 BMI 22.4 Weight Status Appropriate Subjective/Other Information Pt tube feed is running at goal rate. K labs dropped low and pt was given KCl via IVF. K labs now WNL. Will switch pt back to Osmolite as a result Percent of energy/protein needs met: 100%/75% Burn Absent Trauma Absent GI Symptoms None Current % PO Negligible Minimum of two criteria No Energy Intake (severe) < or equal to 50% Estimated Energy Requirement > or equal to 5 days #1 Nutrition Diagnosis Inadequate oral intake Diagnosis Progress(for reassessment Continues documentation) Is patient on ventilator? Yes Is Patient Ambulatory and/or Out of Bed No REE-([facility]-confined to bed) 1213.032 Calculation Used for Recommendations [facility] Additional Notes Protein Needs 70-105 g/day (1. 2-2 g/kg) Fluid Needs: 1ml/kcal Nutrition Intervention Change Diet Order: Change TF to Osmolite 1.5 Nutrition Support: Osmolite 1.5 at 35 ml/hr. For Hyponatremia, flush 50 ml q4h Once resolved, flush 100 ml q4h Kcal 1,260 Protein (gm) 53 Fluid (mL) 640 Goal #1 New TF tolerance Goal #2 Meet at least 75% of total energy and protein needs via TF Anticipated Discharge Needs: Recommend Jevity 1.2 bolus 5 cans/day: Breakfast 2 cans ( 474ml), Lunch 2 cans (474ml), Dinner 1 can (237ml) with flush 100ml before and after bolus. [ End ] Follow-Up By: 08/28/20 Additional Comments FU for TF tolerance, intakes, and labs.
[2020-08-26 15:34] LABS: Hematocrit 32.8 % (30.3-42.9); Hemoglobin 11.1 gm/dl (10.1-14.3); Mean Corpuscular HGB Conc 34 % (30-34); Mean Corpuscular Volume 98 fl (79-97); Red Blood Count 3.34 M/mm3 (3.65-5.03); Red Cell Distribution Width 16.1 % (13.2-15.2)
[2020-08-26 15:42] LABS: Platelet Count 309 K/mm3 (140-440)
[2020-08-26 15:44] LABS: Eosinophils % (Auto) 4.1 % (0.0-4.3); Monocytes % (Auto) 3.6 % (0.0-7.3)
[2020-08-26 15:56] LABS: Alanine Aminotransferase 48 units/L (7-56); Albumin 1.6 g/dL (3.9-5); Blood Urea Nitrogen 12 mg/dL (7-17); Calcium 7.8 mg/dL (8.4-10.2); Hemolysis Index 63
[2020-08-26 16:18] LABS: BUN/Creatinine Ratio 60
[2020-08-26 16:45] LABS: Basophils % (Manual) 0 % (0.0-1.8); Eosinophils % (Manual) 0 % (0.0-4.3); Total Cells Counted 100
[2020-08-26 16:54] LABS: Platelet Clumps Rare
[2020-08-26 16:59] LABS: Ovalocytes Rare; Platelet Estimate Appears Increased; Target Cells Rare
[2020-08-27] MEDS: VANCOMYCIN 250 MG/10 ML ORAL LIQD PO SCH ×4 (00:34→17:42)
[2020-08-27] MEDS: INSULIN REGULAR, HUMAN 100 UNIT/ML 3ML VIAL SUB-Q SCH ×4 (00:35→17:38)
[2020-08-27 02:17] LABS: Alanine Aminotransferase 72 units/L (7-56); Albumin 1.7 g/dL (3.9-5); Blood Urea Nitrogen 10 mg/dL (7-17); Calcium 7.8 mg/dL (8.4-10.2); Hemolysis Index 83
[2020-08-27] MEDS: HEPARIN 5,000 UNIT/1 ML VIAL SUB-Q SCH ×3 (02:25→17:42)
[2020-08-27] MEDS: SODIUM CHLORIDE 0.9% 1000 ML 1,000 ML IV SCH (02:25)
[2020-08-27 02:35] LABS: BUN/Creatinine Ratio 50
--- NOTE | 2020-08-27 03:37 | XRay Report ---
CHEST 1 VIEW 08/27/2020 2:07 AM INDICATION / CLINICAL INFORMATION: follow up respiratory failure. COMPARISON: 08/26/20 FINDINGS: SUPPORT DEVICES: Unchanged. HEART / MEDIASTINUM: No significant abnormality. LUNGS / PLEURA: Retrocardiac left basilar pleural-parenchymal density is unchanged. Right mid lung ca lcified granulomas unchanged. No pneumothorax. ADDITIONAL FINDINGS: No significant additional findings. IMPRESSION: 1. No significant change. Signer Name: Shubham Nunez MD Signed: 08/27/2020 3:32 AM Workstation Name: [email or web address][id number]
[2020-08-27 04:03] LABS: Hematocrit 32.2 % (30.3-42.9); Hemoglobin 10.8 gm/dl (10.1-14.3); Mean Corpuscular HGB Conc 33 % (30-34); Mean Corpuscular Volume 98 fl (79-97); Platelet Count 384 K/mm3 (140-440); Red Cell Distribution Width 15.9 % (13.2-15.2)
[2020-08-27] MEDS: metroNIDAZOLE/NS 500 MG/100 ML 500 MG/100 ML BAG IV SCH ×3 (04:33→21:43)
[2020-08-27 04:52] LABS: ABG Base Excess 0.5 mmol/L (-2.0-3.0); ABG HCO3 23.8 mmol/L (20.0-26.0); ABG Methemoglobin 0.5 % (0.0-1.5); ABG Oxygen Saturation 96.6 % (95.0-99.0); ABG PCO2 33.4 mm Hg; ABG PH 7.471 pH Units (7.350-7.450); ABG PO2 70.9 mm Hg (80.0-90.0)
[2020-08-27 05:03] LABS: Band Neutrophils # (Manual) 0.9 K/mm3; Basophils % (Manual) 0 % (0.0-1.8); Total Cells Counted 100
[2020-08-27 05:04] LABS: Anisocytosis Few; Target Cells Few
[2020-08-27 05:05] LABS: Platelet Estimate Consistent w Auto
[2020-08-27] MEDS: PHENYTOIN 100 MG in SODIUM CHLORIDE 0.9% 100 ML IV SCH ×3 (06:32→21:54)
--- NOTE | 2020-08-27 08:10 | Progress Note ---
Assessment and Plan 60-year-old female patient with schizoaffective disorder with active hallucinations and confusion presented from [place] for altered mental status and poor intake on 07/13. She was found to have rhabdomyolysis and electrolyte imbalances. She then developed C. difficile diarrhea and she has completed her regimen of p.o. vancomycin from 07/20-08/03. RN stated patient had to liquid bowel movements today however patient is on vancomycin. Per policy if patient has the decreased BMs she was not a C. difficile sample. At the time of my exam this afternoon the patient was in her usual state with no focal seizure activity noted. However this evening when neurology examined her she was noted to have another seizure and was given Ativan IV. Antiepileptic medications adjusted. Dr. Nials spoke to Dr. Taylor about need to transfer for continuous EEG. He also recommended every hour neurochecks and intubation. Stat ABG ordered. 07/13; patient's CK levels trending down on 1678, continue IV hydration patient is more alert at times, hallucinating, Noncommunicative, severe hypokalemia, replace per protocol 07/14; potassium level significantly improved today to 3.2, replenish per protocol. CK levels trending down 828, continue IV hydration, monitor electrolytes 07/15; patient refused potassium yesterday today potassium levels again 2.7 We will add KCl to IV fluids, and IV K riders, monitor electrolytes. CK level 425. Refusing to eat confused noncommunicative. Possible inpatient psych admission when medically stable 07/16; rhabdomyolysis resolved, mild electrolyte imbalances, if corrected medically stable for inpatient psych placement 07/17: replete K and phosphate. repeat CBc BMP tomorrow. White count needs to be < 10 for inpt psych admission 07/18: cont to have mildly elevated white count, c/o loose stool. will check for C. def - start flagyl and cipro 07/19: White count normal today. change medications to Po. medically stable to go for inpt psych unit. 07/20; positive for C. def. patient not eating properly, refusing meds time to time. Psych now recommended outpt f/u. CM working on placement. Patient remains nonverbal, does not follow any commend and not giving any personal info. 07/21; K 2.0 today, cont to replete, follow BMP, patient remains nonverbal and not cooperative. refuses to eat and meds. cont d51/2NS. if condition doesnot improve will consider TF 07/22: Potassium level persistently remains low, magnesium 1.6 today. Will replete magnesium and potassium. Patient refusing meds and not eating at all per RN report. Totally noncooperative during the encounternot respond to any question. Keeps her eye closing and covering her face with her forearm. Will order for tube feeding and Dobbhoff tube. Continue to follow. We will also add Megace to boost appetite. 07/23: started on TF, follow BMP, change iv fluid to 1/2 NS. patient remains nonverbal 07/24; clinically unchanged, replete K, iv fluid and TF. reconsult psych as patient remains in catatonic phase 07/25: psych recommendation noted, continue tube feeding, continue to replete electrolytes as needed, follow BMP. I strongly believe her severe electrolytes derangement and encephalopathy related to her catatonia, poor oral intake other than any underlying medical conditions. There is no family contact in file, no home address available, patient appeared to be unfunded. manager rn case working on placement. 07/26: psych recommendation noted, continue tube feeding, continue to replete electrolytes as needed, follow BMP. I strongly believe her severe electrolytes derangement and encephalopathy related to her catatonia, poor oral intake other than any underlying medical conditions. There is no family contact in file, no home address available, patient appeared to be unfunded. manager rn case working on placement. 07/27; continue with tube feeding. There is no family contact in file, no home address available, patient appeared to be unfunded. Case management is following. 07/28; patient still on tube feeding, patient is noncommunicative. I believe her condition is related to her catatonia. Psych is following her. Currently her electrolytes are corrected. There is no family contact in file, no home address available, patient appeared to be unfunded. Case management is following. 07/29 patient is nonverbal, eyes open does not follow simple commands,, still having low-grade fever T-max 100 degrees,, lab results reviewed discussed with RN- still has loose stools, upper caser notes reviewed, unable to contact family 07/30 no acute events overnight, diarrhea improved, stop IV fluids, disposition to be decided 07/31: student officer presented to the bedside to attempt to fingerprint the patient to identify her. However his machine was not working 08/01:' Per upper caser note [facility] [employer] Department has been contacted to help in identifying the patient. On officer is to report to bedside and was instructed to call the upper caser upon arrival. 08/02/2020 still has diarrhea 08/03/2020 diarrhea improving. Today is the last day of vancomycin 08/04/2020 patient has no diarrhea 08/05: [facility] shift lead RN reported patient had a seizure overnight, Ativan was ordered however was not administered because according to the dayshift RN he was reported that the patient "did not need the medication because she was not h aving a seizure at the moment". Patient remained hyponatremic and hypochloremic and after conversing with the nurse patient was not getting her prescribed dose FWF for hyponatremia which was corrected 08/06: Electrolyte imbalance discontinue, patient still catatonic 08/07: Electrolyte imbalances continue, to physician consent for PEG tube obtained and GI consulted 08/08: PEG scheduled for 08/09 08/09: s/p PEG placement with GI, hyperkalemic (potassium 5.2) s/p [place] Kayexalate. 08/11; patient is on PEG tube feeding. C. difficile treated and resolved. Patient still in catatonic state. Pending guardianship. 08/12/2020 patient on PEG tube feeding. Guardianship pending. Pending placement. 08/13: no aucte events reported overnight, gaurdenship pending. 08/14/20: quality and futility of care is questionable, patient not following any commands, pupillary reflex noted, neurology and ethics consult placed 08/15: Neurology recommended LP, EEG, CT head and MRI brain with and without contrast which are all pending. 08/16: Physician consult obtained for LP which was completed today. Bilateral lower extremity x-rays noted no metal and a physician consent was obtained for contrast therefore MRI brain pending. EEG still pending. Patient again has hypochloremia and hyponatrema 08/17: status epilepticus noted on EEG, Neurology recommends transfer for continues EEG. 08/19: seizures subsided. No active seizures. Pending placement. 08/20: CXR shows possible PNA, initiated on cefepime and vancomycin 08/21. Discussed with neurologist. Patient needs to be transferred to a tertiary center for continuous EEG monitoring Transfer to [facility] initiated. As per [place], case will be sent to and earliest time for possible transfer will be tomorrow. In the meantime, patient will need intubation and sedation for status as per neurology. Critical care consult placed. Vent orders placed. Anesthesia paged. Patient will be going to the ICU. Transfer order placed. Discussed with anesthesia Dr Hawthorne 6:50 PM and told him why patient needs to be intubated immediately. Apparently, patient transfer orders still in progress and patient still on the floors during his evaluation at bedside. Patient cannot be intubated or while on the floor as per anesthesia MD. Patient is to go to ICU and then intubated. 08/22. Overnight events noted. Patient intubated this AM and started on versed. Discussed with [facility], case is still being reviewed. Called [facility] and was told facility do not have continuous EEG monitoring. She remains on multiple seizure medications. Continue BP medications. Neurology is following closely. 08/23. Patient seen and examined at bedside this morning. Patient has been denied transfer by [facility] as no neuro critical care ICU available. [facility] only accepting patients with acute stroke, gabriel or trauma. Placed a call to [facility] and gave details today. Awaiting callback. Otherwise patient remains sedated. EEG performed yesterday shows significant improvement in status epilepticus. Neurology to review today. 08/24. I discussed with transfer center at [facility] and neurologist Dr. Trivedi requested that latest EEG be reviewed by teleneurology prior to consideration. As patient seizures have subsided, weaning will be on alternative. Neurology notes reviewed-patient to be maintained on sedation for now until it is safe too wean (needs continuous EEG monitoring for this]. I called back transfer center at [facility] was told there are no beds at this time. Patient noted to have Fever overnight. Also has loose watery stools and procalcitonin is elevated. She has been on antibiotics for 4 days now. Repeat chest x-ray shows no new pneumonia. Due to diarrhea, will DC antibiotics for now. Send stool for C. difficile as she had C. difficile earlier during this admission. We will consult ID if C. difficile is positive. Will maintain on current medications for now 08/25. C diff is positive. Started on PO vancomycin. ID consulted. DCed IV antibiotics. Monitor WBC. Will get abdominal CT if no improvement is noted. Called [facility] and [facility] but no beds available today. Neurology recommendations appreciated. Will keep sedatives at same dose. 08/26. Patient needs continuous EEG monitoring. Called [facility] and [facility] but still have no beds available. [facility] is not accepting patients except Acute stroke, gabriel and trauma patients. [facility] does not have continuous EEG monitoring. She is still on low dose lorazepam. Discussed with CM to find other hospitals where patient can have the EEG monitoring. In the mean time, patient may need to have titration of sedatives but this may not be possible as per neurology. Neurology not available this weekend to assist. Plan to discuss alternatives with neurology on Thursday. Otherwise, she is still on low dose dopamine and PO vancomycin for recurrent clostridium difficile infection. ID is on board. AM labs not drawn. Labs reordered Subjective Date of service: 08/27/20 Principal diagnosis: C diff status epilepticus Objective - Constitutional Vitals: Vital Signs - 12hr 08/26/20 08/26/20 08/26/20 20:15 20:30 20:45 Temperature Pulse Rate 94 H 94 H 91 H Pulse Rate [ From Monitor] Respiratory 20 20 20 Rate Blood Pressure 102/52 101/55 105/57 O2 Sat by Pulse Oximetry 08/26/20 08/26/20 08/26/20 21:00 21:15 21:30 Temperature Pulse Rate 95 H 94 H 93 H Pulse Rate [ From Monitor] Respiratory 20 20 20 Rate Blood Pressure 107/61 102/58 111/61 O2 Sat by Pulse Oximetry 08/26/20 08/26/20 08/26/20 21:45 22:00 22:15 Temperature Pulse Rate 97 H 98 H 100 H Pulse Rate [ From Monitor] Respiratory 20 20 20 Rate Blood Pressure 106/61 105/60 103/59 O2 Sat by Pulse Oximetry 08/26/20 08/26/20 08/26/20 22:30 22:45 23:00 Temperature Pulse Rate 98 H 92 H 97 H Pulse Rate [ From Monitor] Respiratory 20 20 20 Rate Blood Pressure 105/63 103/62 99/59 O2 Sat by Pulse Oximetry 08/26/20 08/26/20 08/26/20 23:11 23:15 23:20 Temperature 98.9 F Pulse Rate 97 H 100 H Pulse Rate [ From Monitor] Respiratory 20 20 Rate Blood Pressure 99/59 96/56 O2 Sat by Pulse 100 98 Oximetry 08/26/20 08/26/20 08/26/20 23:30 23:44 23:45 Temperature Pulse Rate 99 H 98 H 98 H Pulse Rate [ From Monitor] Respiratory 20 20 Rate Blood Pressure 106/62 106/62 97/56 O2 Sat by Pulse 99 Oximetry 08/26/20 08/27/20 08/27/20 23:50 00:00 00:15 Temperature Pulse Rate 97 H 97 H 99 H Pulse Rate [ 97 H From Monitor] Respiratory 20 20 Rate Blood Pressure 107/60 107/63 O2 Sat by Pulse 99 Oximetry 08/27/20 08/27/20 08/27/20 00:30 00:45 01:00 Temperature Pulse Rate 98 H 101 H 99 H Pulse Rate [ From Monitor] Respiratory 20 20 20 Rate Blood Pressure 107/61 85/50 91/56 O2 Sat by Pulse 96 Oximetry 08/27/20 08/27/20 08/27/20 01:15 01:30 01:45 Temperature Pulse Rate 98 H 97 H 96 H Pulse Rate [ From Monitor] Respiratory 20 20 20 Rate Blood Pressure 96/53 100/59 91/50 O2 Sat by Pulse 99 Oximetry 08/27/20 08/27/20 08/27/20 02:00 02:15 02:30 Temperature Pulse Rate 98 H 97 H 98 H Pulse Rate [ From Monitor] Respiratory 20 20 20 Rate Blood Pressure 95/56 93/48 93/51 O2 Sat by Pulse Oximetry 08/27/20 08/27/20 08/27/20 02:45 03:00 03:15 Temperature Pulse Rate 98 H 95 H 95 H Pulse Rate [ From Monitor] Respiratory 20 20 20 Rate Blood Pressure 103/58 86/50 93/54 O2 Sat by Pulse 98 Oximetry 08/27/20 08/27/20 08/27/20 03:29 03:30 03:45 Temperature 97.8 F Pulse Rate 100 H 97 H Pulse Rate [ From Monitor] Respiratory 20 20 Rate Blood Pressure 92/53 107/54 O2 Sat by Pulse 98 Oximetry 08/27/20 08/27/20 08/27/20 04:00 04:09 04:15 Temperature Pulse Rate 96 H 94 H 99 H Pulse Rate [ 96 H From Monitor] Respiratory 20 20 Rate Blood Pressure 101/55 101/55 107/62 O2 Sat by Pulse 100 99 Oximetry 08/27/20 08/27/20 08/27/20 04:30 04:45 05:01 Temperature Pulse Rate 98 H 96 H 99 H Pulse Rate [ From Monitor] Respiratory 20 20 20 Rate Blood Pressure 110/66 126/72 126/72 O2 Sat by Pulse 99 100 100 Oximetry 08/27/20 08/27/20 08/27/20 05:15 05:30 05:45 Temperature Pulse Rate 105 H 99 H 98 H Pulse Rate [ From Monitor] Respiratory 19 20 20 Rate Blood Pressure 92/48 102/55 91/51 O2 Sat by Pulse 100 Oximetry 08/27/20 08/27/20 08/27/20 06:00 06:15 06:30 Temperature Pulse Rate 97 H 93 H 94 H Pulse Rate [ From Monitor] Respiratory 20 20 20 Rate Blood Pressure 88/51 83/47 83/42 O2 Sat by Pulse 100 100 Oximetry 08/27/20 08/27/20 08/27/20 06:45 07:00 07:15 Temperature Pulse Rate 110 H 89 91 H Pulse Rate [ From Monitor] Respiratory 20 20 20 Rate Blood Pressure 102/62 94/56 101/63 O2 Sat by Pulse 100 99 100 Oximetry 08/27/20 07:45 Temperature Pulse Rate 93 H Pulse Rate [ From Monitor] Respiratory Rate Blood Pressure 123/75 O2 Sat by Pulse 99 Oximetry - Labs CBC & Chem 7: 08/27/20 03:37 08/27/20 00:46 Labs: Abnormal lab results 08/26/20 08/26/20 08/26/20 Range/Units 12:27 14:58 14:58 WBC (4.5-11.0) K/mm3 RBC 3.34 L (3.65-5.03) M/mm3 MCV 98 H (79-97) fl MCH 33 H (28-32) pg RDW 16.1 H (13.2-15.2) % Seg Neutrophils % 76.4 H (40.0-70.0) % Lymphocytes % (Manual) 12.0 L (13.4-35.0) % Seg Neutrophils # Man 0.0 L (1.8-7.7) K/mm3 Lymphocytes # (Manual) 0.0 L (1.2-5.4) K/mm3 Monocytes # (Manual) (0.0-0.8) K/mm3 Eosinophils # (Manual) (0.0-0.4) K/mm3 ABG pH (7.350-7.450) pH Units ABG pO2 (80.0-90.0) mm Hg ABG Hemoglobin (12.0-16.0) gm/dl Oxyhemoglobin (95.0-99.0) % Sodium 133 L (137-145) mmol/L Potassium 5.2 H D (3.6-5.0) mmol/L Carbon Dioxide 21 L (22-30) mmol/L Creatinine 0.2 L (0.6-1.2) mg/dL Glucose 132 H (65-100) mg/dL POC Glucose 135 H (70-105) mg/dL Calcium 7.8 L (8.4-10.2) mg/dL AST 82 H (5-40) units/L ALT (7-56) units/L Total Protein 5.9 L (6.3-8.2) g/dL Albumin 1.6 L (3.9-5) g/dL 08/26/20 08/27/20 08/27/20 Range/Units 17:56 00:06 00:46 WBC (4.5-11.0) K/mm3 RBC (3.65-5.03) M/mm3 MCV (79-97) fl MCH (28-32) pg RDW (13.2-15.2) % Seg Neutrophils % (40.0-70.0) % Lymphocytes % (Manual) (13.4-35.0) % Seg Neutrophils # Man (1.8-7.7) K/mm3 Lymphocytes # (Manual) (1.2-5.4) K/mm3 Monocytes # (Manual) (0.0-0.8) K/mm3 Eosinophils # (Manual) (0.0-0.4) K/mm3 ABG pH (7.350-7.450) pH Units ABG pO2 (80.0-90.0) mm Hg ABG Hemoglobin (12.0-16.0) gm/dl Oxyhemoglobin (95.0-99.0) % Sodium 135 L (137-145) mmol/L Potassium (3.6-5.0) mmol/L Carbon Dioxide 19 L (22-30) mmol/L Creatinine < 0.2 L (0.6-1.2) mg/dL Glucose 141 H (65-100) mg/dL POC Glucose 108 H 152 H (70-105) mg/dL Calcium 7.8 L (8.4-10.2) mg/dL AST 105 H (5-40) units/L ALT 72 H (7-56) units/L Total Protein 5.8 L (6.3-8.2) g/dL Albumin 1.7 L (3.9-5) g/dL 08/27/20 08/27/20 08/27/20 Range/Units 03:37 04:10 05:30 WBC 17.0 H (4.5-11.0) K/mm3 RBC 3.30 L (3.65-5.03) M/mm3 MCV 98 H (79-97) fl MCH 33 H (28-32) pg RDW 15.9 H (13.2-15.2) % Seg Neutrophils % (40.0-70.0) % Lymphocytes % (Manual) (13.4-35.0) % Seg Neutrophils # Man 11.7 H (1.8-7.7) K/mm3 Lymphocytes # (Manual) (1.2-5.4) K/mm3 Monocytes # (Manual) 1.0 H (0.0-0.8) K/mm3 Eosinophils # (Manual) 0.5 H (0.0-0.4) K/mm3 ABG pH 7.471 H (7.350-7.450) pH Units ABG pO2 70.9 L (80.0-90.0) mm Hg ABG Hemoglobin 10.0 L (12.0-16.0) gm/dl Oxyhemoglobin 94.8 L (95.0-99.0) % Sodium (137-145) mmol/L Potassium (3.6-5.0) mmol/L Carbon Dioxide (22-30) mmol/L Creatinine (0.6-1.2) mg/dL Glucose (65-100) mg/dL POC Glucose 123 H (70-105) mg/dL Calcium (8.4-10.2) mg/dL AST (5-40) units/L ALT (7-56) units/L Total Protein (6.3-8.2) g/dL Albumin (3.9-5) g/dL HEART Score - HEART Score Risk factors: 1-2 risk factors Troponin: Troponin T < 0.010 ng/mL (0.00-0.029) 07/11/20 21:17 Troponin: < normal limit - Critical Actions Critical Actions: 0-3 pts:0.9-1.7%risk of adverse cardiac event.Candidate for discharge
[2020-08-27] MEDS: VALPROIC ACID 250 MG/5 ML ORAL LIQD FEEDTUBE SCH ×2 (09:07→21:43)
[2020-08-27] MEDS: MEGESTROL 400 MG/10 ML ORAL LIQD PO SCH (09:07)
[2020-08-27] MEDS: LACOSAMIDE 100 MG TAB PO SCH ×2 (09:08→21:46)
[2020-08-27] MEDS: LANSOPRAZOLE 30 MG SOLUTAB FEEDTUBE SCH (09:08)
[2020-08-27] MEDS: levETIRAcetam 500 MG/5 ML ORAL LIQD PO SCH ×2 (09:08→21:46)
--- NOTE | 2020-08-27 10:03 | Progress Note ---
Assessment and Plan Cultures: Blood culture on 07/11/2020 no growth Urine culture on 07/11/2020 no growth CSF culture 08/16/2020 no growth Tracheal aspirate date 08/22/2020 usual respiratory adarsh Assessment: 60 years old female with a schizoaffective disorder admitted on 07/11/2020 due to altered mental status/confusion and poor p.o. intake found to have intractable seizures within a prolonged hospital stay with intractable seizures rhabdomyolysis, C. difficile colitis on 07/20/2020, catatonia, poor p.o. intake, recent pneumonia, now with: #Sepsis with septic shock: Not present on admission with fever, tachycardia, hypotension, remains on dopamine drip; source C. difficile colitis/recurrent #Acute respiratory failure: Intubated for airway protection. #Recurrent C. difficile colitis: Initial C. difficile colitis on 07/20/2020 treated with vancomycin from 07/20/2020 until 08/03/2020. Patient then received cefepime and vancomycin IV for pneumonia on 08/20/2020. #Pneumonia: Treated with cefepime and vancomycin. #Intractable seizures: Per neurology #Schizo affective disorder with catatonia: Per psych #Electrolytes imbalance: Per primary team. Recommendations: -Continue vancomycin p.o. 500 g 4 times daily total 10 days -Continue metronidazole 500 mg every 8 hours -Avoid broad-spectrum antibiotics -Obtain serial KUB -ordered today -Consider CT of the abdomen and pelvis if leukocytosis/fever does not improve Will follow. Gloria Sinclair MD Infectious Diseases Clerical Secretary [facility] M [phone] O [phone] Subjective Date of service: 08/27/20 Principal diagnosis: C diff status epilepticus Interval history: Remains intubated, on dopamine drip, no fever for 3 days Objective - Exam Narrative Exam: General appearance: Intubated on the ventilator Eyes: anicteric sclerae, moist conjunctivae; no lid-lag; PERRLA HENT: Atraumatic; oropharynx limited due to endotracheal tube Lungs: CTA CV: RRR no murmur Abdomen: Soft, non-tender Extremities: no edema, no cyanosis Skin: No rash. Psych: Intubated no agitated Neuro: Unresponsive. - Constitutional Vitals: Vital Signs Temp Pulse Resp BP Pulse Ox 98.2 F 93 H 20 123/75 100 08/27/20 08:00 08/27/20 08:00 08/27/20 08:00 08/27/20 08:00 08/27/20 08:00 Temperature -Last 24 Hours Temperature 98.2 F Temperature 97.8 F Temperature 98.9 F Temperature 97.8 F Temperature 97.5 F Temperature 97.4 F - Labs CBC & Chem 7: 08/27/20 03:37 08/27/20 00:46 Labs: Abnormal lab results 08/26/20 08/26/20 08/26/20 Range/Units 12:27 14:58 14:58 WBC (4.5-11.0) K/mm3 RBC 3.34 L (3.65-5.03) M/mm3 MCV 98 H (79-97) fl MCH 33 H (28-32) pg RDW 16.1 H (13.2-15.2) % Seg Neutrophils % 76.4 H (40.0-70.0) % Lymphocytes % (Manual) 12.0 L (13.4-35.0) % Seg Neutrophils # Man 0.0 L (1.8-7.7) K/mm3 Lymphocytes # (Manual) 0.0 L (1.2-5.4) K/mm3 Monocytes # (Manual) (0.0-0.8) K/mm3 Eosinophils # (Manual) (0.0-0.4) K/mm3 ABG pH (7.350-7.450) pH Units ABG pO2 (80.0-90.0) mm Hg ABG Hemoglobin (12.0-16.0) gm/dl Oxyhemoglobin (95.0-99.0) % Sodium 133 L (137-145) mmol/L Potassium 5.2 H D (3.6-5.0) mmol/L Carbon Dioxide 21 L (22-30) mmol/L Creatinine 0.2 L (0.6-1.2) mg/dL Glucose 132 H (65-100) mg/dL POC Glucose 135 H (70-105) mg/dL Calcium 7.8 L (8.4-10.2) mg/dL AST 82 H (5-40) units/L ALT (7-56) units/L Total Protein 5.9 L (6.3-8.2) g/dL Albumin 1.6 L (3.9-5) g/dL 08/26/20 08/27/20 08/27/20 Range/Units 17:56 00:06 00:46 WBC (4.5-11.0) K/mm3 RBC (3.65-5.03) M/mm3 MCV (79-97) fl MCH (28-32) pg RDW (13.2-15.2) % Seg Neutrophils % (40.0-70.0) % Lymphocytes % (Manual) (13.4-35.0) % Seg Neutrophils # Man (1.8-7.7) K/mm3 Lymphocytes # (Manual) (1.2-5.4) K/mm3 Monocytes # (Manual) (0.0-0.8) K/mm3 Eosinophils # (Manual) (0.0-0.4) K/mm3 ABG pH (7.350-7.450) pH Units ABG pO2 (80.0-90.0) mm Hg ABG Hemoglobin (12.0-16.0) gm/dl Oxyhemoglobin (95.0-99.0) % Sodium 135 L (137-145) mmol/L Potassium (3.6-5.0) mmol/L Carbon Dioxide 19 L (22-30) mmol/L Creatinine < 0.2 L (0.6-1.2) mg/dL Glucose 141 H (65-100) mg/dL POC Glucose 108 H 152 H (70-105) mg/dL Calcium 7.8 L (8.4-10.2) mg/dL AST 105 H (5-40) units/L ALT 72 H (7-56) units/L Total Protein 5.8 L (6.3-8.2) g/dL Albumin 1.7 L (3.9-5) g/dL 08/27/20 08/27/20 08/27/20 Range/Units 03:37 04:10 05:30 WBC 17.0 H (4.5-11.0) K/mm3 RBC 3.30 L (3.65-5.03) M/mm3 MCV 98 H (79-97) fl MCH 33 H (28-32) pg RDW 15.9 H (13.2-15.2) % Seg Neutrophils % (40.0-70.0) % Lymphocytes % (Manual) (13.4-35.0) % Seg Neutrophils # Man 11.7 H (1.8-7.7) K/mm3 Lymphocytes # (Manual) (1.2-5.4) K/mm3 Monocytes # (Manual) 1.0 H (0.0-0.8) K/mm3 Eosinophils # (Manual) 0.5 H (0.0-0.4) K/mm3 ABG pH 7.471 H (7.350-7.450) pH Units ABG pO2 70.9 L (80.0-90.0) mm Hg ABG Hemoglobin 10.0 L (12.0-16.0) gm/dl Oxyhemoglobin 94.8 L (95.0-99.0) % Sodium (137-145) mmol/L Potassium (3.6-5.0) mmol/L Carbon Dioxide (22-30) mmol/L Creatinine (0.6-1.2) mg/dL Glucose (65-100) mg/dL POC Glucose 123 H (70-105) mg/dL Calcium (8.4-10.2) mg/dL AST (5-40) units/L ALT (7-56) units/L Total Protein (6.3-8.2) g/dL Albumin (3.9-5) g/dL
--- NOTE | 2020-08-27 10:51 | XRay Report ---
ABDOMEN 1 VIEW(S) INDICATION / CLINICAL INFORMATION: Evaluate for toxic megacolon severe C diff. COMPARISON: 08/07/2020 FINDINGS: TUBES / LINES: There is a PEG tube projecting at the expected location of the stomach. BOWEL GAS PATTERN/EXTRALUMINAL GAS: The colon is normal in caliber. There is gas noted throughout the colon. No pneumatosis or secondary signs of free air. ADDITIONAL FINDINGS: No significant additional findings. IMPRESSION: 1. No acute abnormality. Signer Name: Bj Meyers MD Signed: 08/27/2020 10:46 AM Workstation Name: [id number]
--- NOTE | 2020-08-27 18:11 | Progress Note ---
Assessment and Plan 1-year-old female patient with schizoaffective disorder with active hallucinations and confusion presented from [place] for altered mental status and poor intake on 07/13. She was found to have rhabdomyolysis and electrolyte imbalances. She then developed C. difficile diarrhea and she has completed her regimen of p.o. vancomycin from 07/20-08/03. RN stated patient had to liquid bowel movements today however patient is on vancomycin. Per policy if patient has the decreased BMs she was not a C. difficile sample. At the time of my exam this afternoon the patient was in her usual state with no focal seizure activity noted. However this evening when neurology examined her she was noted to have another seizure and was given Ativan IV. Antiepileptic medications adjusted. Dr. Nails spoke to Dr. Taylor about need to transfer for continuous EEG. He also recommended every hour neurochecks and intubation. Stat ABG ordered. 07/13; patient's CK levels trending down on 1678, continue IV hydration patient is more alert at times, hallucinating, Noncommunicative, severe hypokalemia, replace per protocol 07/14; potassium level significantly improved today to 3.2, replenish per protocol. CK levels trending down 828, continue IV hydration, monitor electrolytes 07/15; patient refused potassium yesterday today potassium levels again 2.7 We will add KCl to IV fluids, and IV K riders, monitor electrolytes. CK level 425. Refusing to eat confused noncommunicative. Possible inpatient psych admission when medically stable 07/16; rhabdomyolysis resolved, mild electrolyte imbalances, if corrected medically stable for inpatient psych placement 07/17: replete K and phosphate. repeat CBc BMP tomorrow. White count needs to be < 10 for inpt psych admission 07/18: cont to have mildly elevated white count, c/o loose stool. will check for C. def - start flagyl and cipro 07/19: White count normal today. change medications to Po. medically stable to go for inpt psych unit. 07/20; positive for C. def. patient not eating properly, refusing meds time to time. Psych now recommended outpt f/u. CM working on placement. Patient remains nonverbal, does not follow any commend and not giving any personal info. 07/21; K 2.0 today, cont to replete, follow BMP, patient remains nonverbal and not cooperative. refuses to eat and meds. cont d51/2NS. if condition doesnot improve will consider TF 07/22: Potassium level persistently remains low, magnesium 1.6 today. Will replete magnesium and potassium. Patient refusing meds and not eating at all per RN report. Totally noncooperative during the encounternot respond to any question. Keeps her eye closing and covering her face with her forearm. Will order for tube feeding and Dobbhoff tube. Continue to follow. We will also add Megace to boost appetite. 07/23: started on TF, follow BMP, change iv fluid to 1/2 NS. patient remains nonverbal 07/24; clinically unchanged, replete K, iv fluid and TF. reconsult psych as patient remains in catatonic phase 07/25: psych recommendation noted, continue tube feeding, continue to replete electrolytes as needed, follow BMP. I strongly believe her severe electrolytes derangement and encephalopathy related to her catatonia, poor oral intake other than any underlying medical conditions. There is no family contact in file, no home address available, patient appeared to be unfunded. manager people working on placement. 07/26: psych recommendation noted, continue tube feeding, continue to replete electrolytes as needed, follow BMP. I strongly believe her severe electrolytes derangement and encephalopathy related to her catatonia, poor oral intake other than any underlying medical conditions. There is no family contact in file, no home address available, patient appeared to be unfunded. manager people working on placement. 07/27; continue with tube feeding. There is no family contact in file, no home address available, patient appeared to be unfunded. Case management is following. 07/28; patient still on tube feeding, patient is noncommunicative. I believe her condition is related to her catatonia. Psych is following her. Currently her electrolytes are corrected. There is no family contact in file, no home address available, patient appeared to be unfunded. Case management is following. 07/29 patient is nonverbal, eyes open does not follow simple commands,, still having low-grade fever T-max 100 degrees,, lab results reviewed discussed with RN- still has loose stools, behavioral health case manager notes reviewed, unable to contact family 07/30 no acute events overnight, diarrhea improved, stop IV fluids, disposition to be decided 07/31: life science technical officer presented to the bedside to attempt to fingerprint the patient to identify her. However his machine was not working 08/01:' Per behavioral health case manager note [facility] [employer] has been contacted to help in identifying the patient. On officer is to report to bedside and was instructed to call the behavioral health case manager upon arrival. 08/02/2020 still has diarrhea 08/03/2020 diarrhea improving. Today is the last day of vancomycin 08/04/2020 patient has no diarrhea 08/05: cnc machinist 2nd shift RN reported patient had a seizure overnight, Ativan was ordered however was not administered because according to the dayshift RN he was reported that the patient "did not need the medication because she was not howell ving a seizure at the moment". Patient remained hyponatremic and hypochloremic and after conversing with the nurse patient was not getting her prescribed dose FWF for hyponatremia which was corrected 08/06: Electrolyte imbalance discontinue, patient still catatonic 08/07: Electrolyte imbalances continue, to physician consent for PEG tube obtained and GI consulted 08/08: PEG scheduled for 08/09 08/09: s/p PEG placement with GI, hyperkalemic (potassium 5.2) s/p RI Kayexalate. 08/11; patient is on PEG tube feeding. C. difficile treated and resolved. Patient still in catatonic state. Pending guardianship. 08/12/2020 patient on PEG tube feeding. Guardianship pending. Pending placement. 08/13: no aucte events reported overnight, gaurdenship pending. 08/14/20: quality and futility of care is questionable, patient not following any commands, pupillary reflex noted, neurology and ethics consult placed 08/15: Neurology recommended LP, EEG, CT head and MRI brain with and without contrast which are all pending. 08/16: Physician consult obtained for LP which was completed today. Bilateral lower extremity x-rays noted no metal and a physician consent was obtained for contrast therefore MRI brain pending. EEG still pending. Patient again has hypochloremia and hyponatrema 08/17: status epilepticus noted on EEG, Neurology recommends transfer for continues EEG. 08/19: seizures subsided. No active seizures. Pending placement. 08/20: CXR shows possible PNA, initiated on cefepime and vancomycin 08/21. Discussed with neurologist. Patient needs to be transferred to a tertiary center for continuous EEG monitoring Transfer to [facility] initiated. As per [place], case will be sent to and earliest time for possible transfer will be tomorrow. In the meantime, patient will need intubation and sedation for status as per neurology. Critical care consult placed. Vent orders placed. Anesthesia paged. Patient will be going to the ICU. Transfer order placed. Discussed with anesthesia Dr Hawthorne 6:50 PM and told him why patient needs to be intubated immediately. Apparently, patient transfer orders still in progress and patient still on the floors during his evaluation at bedside. Patient cannot be intubated or while on the floor as per anesthesia MD. Patient is to go to ICU and then intubated. 08/22. Overnight events noted. Patient intubated this AM and started on versed. Discussed with [facility], case is still being reviewed. Called [facility] and was told facility do not have continuous EEG monitoring. She remains on multiple seizure medications. Continue BP medications. Neurology is following closely. 08/23. Patient seen and examined at bedside this morning. Patient has been denied transfer by [facility] as no neuro critical care ICU available. [facility] only accepting patients with acute stroke, gabriel or trauma. Placed a call to [facility] and gave details today. Awaiting callback. Otherwise patient remains sedated. EEG performed yesterday shows significant improvement in status epilepticus. Neurology to review today. 08/24. I discussed with transfer center at [facility] and neurologist Dr. Trivedi requested that latest EEG be reviewed by teleneurology prior to consideration. As patient seizures have subsided, weaning will be on alternative. Neurology notes reviewed-patient to be maintained on sedation for now until it is safe too wean (needs continuous EEG monitoring for this]. I called back transfer center at [facility] was told there are no beds at this time. Patient noted to have Fever overnight. Also has loose watery stools and procalcitonin is elevated. She has been on antibiotics for 4 days now. Repeat chest x-ray shows no new pneumonia. Due to diarrhea, will DC antibiotics for now. Send stool for C. difficile as she had C. difficile earlier during this admission. We will consult ID if C. difficile is positive. Will maintain on current medications for now 08/25. C diff is positive. Started on PO vancomycin. ID consulted. DCed IV antibiotics. Monitor WBC. Will get abdominal CT if no improvement is noted. [facility] but no beds available today. Neurology recommendations appreciated. Will keep sedatives at same dose. 08/26. Patient needs continuous EEG monitoring. Called [facility] and [facility] but still have no beds available. [facility] is not accepting patients except Acute stroke, gabriel and trauma patients. [facility] does not have continuous EEG monitoring. She is still on low dose lorazepam. Discussed with CM to find other hospitals where patient can have the EEG monitoring. In the mean time, patient may need to have titration of sedatives but this may not be possible as per neurology. Neurology not available this weekend to assist. Plan to discuss alternatives with neurology on Thursday. Otherwise, she is still on low dose dopamine and PO vancomycin for recurrent clostridium difficile infection. ID is on board. AM labs not drawn. Labs reordered - Patient Problems (1) Altered mental state Current Visit: Yes Status: Acute Qualifiers: Altered mental status type: unspecified Qualified Code(s): R41.82 - Altered mental status, unspecified Plan to address problem: Possible continuous seizure. May be exacerbated by underlying infections in the past and/or schizoaffective disorder. (2) DVT prophylaxis Current Visit: Yes Status: Acute (3) Status epilepticus Current Visit: Yes Status: Acute Plan to address problem: Plan to address problem: RN reported seizure activity on on 08/05; Ativan was ordered however was not administered because according to the dayshift RN he was reported that the patient "did not need the medication because she was not having a seizure at the moment". After reviewing nursing notes it is noted that she had reported seizure activity by RN on 08/12 and was given Ativan. Hospitalist was informed No seizure activity reported since Neurology consulted EEG no no status epilepticus Pt is on depakote 1000 mg bid; Keppra 1500 mg bid; vimpat 200 mg iv q12; and now initiated on Fosphentoin (load and maintenance) despite drug-drug interaction on 08/21 per neurology Per neurology: Patient will require transfer to a facility w/ cEEG monitoring for higher level of care as EEG here is intermittently available and intermittently read at present; increase depakote to 1000 mg bid (bolus of 500 mg via peg); increase Keppra to 1500 mg bid; initiate vimpat 200 mg iv q12; s/p Ativan 1 mg IV x 1 dose given; pending MRI Brain w/ wo contrast. Recommend q1 hour neurochecks. 08/19 it was noted that patient's seizure activity subsided therefore was not transferred to tertiary care 08/21 noted to have a focal seizure when neurology was examining the patient, given Ativan x1 and started on a third antiepileptic. Transfer to [facility] reinitiated today. Discussed [facility] neurology - patient will need intubation and sedation. Discussed with anesthesia and corking machine operator. Transfer order placed. Vent bundle ordered. -08/22. Patient intubated this AM. Had another episode of seizure early AM as per RN prior to intubation. Neurology currently following. Patient is on Depakote, Keppra, fosphenytoin and Vimpat. -08/23. EEG shows improvement after sedation and intubation. Teleneurology following -08/24 - 08/25. No seizures noted. Still on lorazepam drip. Will order EEG repeat. -08/26. No beds at [facility]. [facility] has no continuous EEG monitor. [facility] only acceptinig stroke patients. Discussed with to see if he can find hospitals that have EEG capability here in [place]. 08/26/2020 received call from [facility] about reconnecting with transfer service from [facility] [phone]. We will follow-up in a.m. to see if they have a bed for continuous EEG capabilities. Otherwise patient remains unresponsive nonverbal at baseline. Intubated. (4) Schizoaffective disorder Current Visit: Yes Status: Chronic Plan to address problem: Haldol as needed antipsychotic medications. (5) C. difficile diarrhea Current Visit: Yes Status: Resolved Plan to address problem: Continue vancomycin for an additional 4 times a day for total of 10 days. No loose stool today. (6) Rhabdomyolysis Current Visit: Yes Status: Resolved Qualifiers: Rhabdomyolysis type: non-traumatic Qualified Code(s): M62.82 - Rhabdomyolysis Plan to address problem: Resolving with aggressive IV fluid hydration before. (7) Hyponatremia Current Visit: Yes Status: Resolved Plan to address problem: Admit sodium 142 07/31 134, slight hyponatremia at this time no intervention needed, 08/01 Na 136 however she has remained hyponatremic Hydration with free water flush; 50ml q6 hours while hyponatremic-> informed RN on 08/06 08/07 sodium 136 08/09 sodium 135 Trend BMP 08/10 sodium 141 08/15 sodium 134; informed RN FWF are ordered to be 50 mL every 6 while hyponatremic 08/16 sodium 131, nutrition notes reviewed and FWF seems to be changed 100 mL q4 hours 08/17 sodium 134 08/20 hyponatremia resolved 08/27/2020 remains stable. (8) Metabolic encephalopathy Current Visit: Yes Status: Acute Plan to address problem: kim to address problem: Multifactorial , schizoaffective disorder and withdrawal seizures 07/11 CT head Normal nonenhanced CT scan of the brain Patient came from [place], psych evaluation noted Psych recommends outpt f/u 08/14 neurology consult: Recommends obtaining EEG, LP, CTA head, MRI brain with and without contrast 08/15 CT head shows no acute abnormalities and no changes since 07/11/202008/16: LP under fluoroscopy completed. CSF analysis shows no evidence of encephalitis 08/16 MRI brain with/without contrast pending: Shows no acute abnormalities Supportive care -Now on multiple antiseizure medications. Intubated and sedated. Plan for transfer to [address] [place] [address] initiated (9) Discharge planning issues Current Visit: Yes Status: Acute Plan to address problem: Patient's identity is not confirmed [facility] has been contacted to aid in identification however unsuccessful [facility] Department have been contacted Inpatient records requested from [facility] again on 08/02 Risk-management made aware of patient again on 08/02 Patient identification confirmed with [facility] Department Attempted to contact children, CM has an email address and an email was sent over the weekend however there is been no reply 08/07: 2 physician consent for PEG tube obtained and GI consulted for PEG tube placement 08/09: PEG tube placed, resume tube feeds within 4 hours [facility] in the process of assuming guardianship over the patient for placement 08/14 ethics consulted 08/17 Dr. Nails requested a transfer to another facility for continuous EEG as the patient may be in status epilepticus. Patient seizures reportedly improved and transfer was initiated 08/21 transfer to [facility] initiated today as patient still having seizure episodes. -08/23. I discussed with transfer center at [facility] and neurologist Dr. Trivedi requested that latest EEG be reviewed by telemetry neurology. Subjective Principal diagnosis: C diff status epilepticus Interval history: No new changes patient reminds unresponsive.. Recurrent C. difficile colitis. No concerns per nurse staff anything new patient chronically ill-appearing unresponsive proceed. Objective - Constitutional Vitals: Vital Signs - 12hr 08/27/20 08/27/20 08/27/20 06:15 06:30 06:45 Temperature Pulse Rate 93 H 94 H 110 H Pulse Rate [ From Monitor] Respiratory 20 20 20 Rate Blood Pressure 83/47 83/42 102/62 O2 Sat by Pulse 100 100 100 Oximetry 08/27/20 08/27/20 08/27/20 07:00 07:15 07:30 Temperature Pulse Rate 89 91 H 91 H Pulse Rate [ From Monitor] Respiratory 20 20 20 Rate Blood Pressure 94/56 101/63 94/59 O2 Sat by Pulse 99 100 93 Oximetry 08/27/20 08/27/20 08/27/20 07:45 08:00 08:15 Temperature 98.2 F Pulse Rate 92 H 94 H 92 H Pulse Rate [ 93 H From Monitor] Respiratory 20 20 20 Rate Blood Pressure 98/59 123/75 108/63 O2 Sat by Pulse 99 100 100 Oximetry 08/27/20 08/27/20 08/27/20 08:30 08:45 09:00 Temperature Pulse Rate 96 H 96 H 96 H Pulse Rate [ From Monitor] Respiratory 20 20 20 Rate Blood Pressure 109/65 98/60 93/53 O2 Sat by Pulse 97 100 100 Oximetry 08/27/20 08/27/20 08/27/20 09:15 09:30 09:45 Temperature Pulse Rate 95 H 96 H 96 H Pulse Rate [ From Monitor] Respiratory 20 20 20 Rate Blood Pressure 100/55 96/56 98/60 O2 Sat by Pulse 94 97 Oximetry 08/27/20 08/27/20 08/27/20 10:00 10:15 10:30 Temperature Pulse Rate 97 H 96 H 97 H Pulse Rate [ From Monitor] Respiratory 22 23 20 Rate Blood Pressure 95/59 113/74 85/50 O2 Sat by Pulse 100 94 Oximetry 08/27/20 08/27/20 08/27/20 10:45 11:00 11:15 Temperature Pulse Rate 101 H 102 H 99 H Pulse Rate [ From Monitor] Respiratory 20 20 20 Rate Blood Pressure 92/52 92/52 92/53 O2 Sat by Pulse 98 Oximetry 08/27/20 08/27/20 08/27/20 11:30 11:45 12:00 Temperature 97.9 F Pulse Rate 98 H 96 H 96 H Pulse Rate [ 95 H From Monitor] Respiratory 20 20 20 Rate Blood Pressure 88/56 92/53 91/53 O2 Sat by Pulse 99 Oximetry 08/27/20 08/27/20 08/27/20 12:15 12:30 12:45 Temperature Pulse Rate 97 H 102 H 97 H Pulse Rate [ From Monitor] Respiratory 20 20 20 Rate Blood Pressure 92/52 102/64 101/59 O2 Sat by Pulse 99 99 Oximetry 08/27/20 08/27/20 08/27/20 13:00 13:15 13:30 Temperature Pulse Rate 94 H 97 H 96 H Pulse Rate [ From Monitor] Respiratory 20 20 20 Rate Blood Pressure 97/55 99/55 93/55 O2 Sat by Pulse Oximetry 08/27/20 08/27/20 08/27/20 13:45 14:00 14:15 Temperature Pulse Rate 98 H 98 H 99 H Pulse Rate [ From Monitor] Respiratory 20 20 20 Rate Blood Pressure 105/61 117/60 107/56 O2 Sat by Pulse Oximetry 08/27/20 08/27/20 08/27/20 14:30 14:45 15:00 Temperature Pulse Rate 101 H 101 H 102 H Pulse Rate [ From Monitor] Respiratory 20 20 20 Rate Blood Pressure 105/60 99/58 99/58 O2 Sat by Pulse 100 Oximetry 08/27/20 08/27/20 08/27/20 15:15 15:30 15:45 Temperature Pulse Rate 102 H 104 H 98 H Pulse Rate [ From Monitor] Respiratory 21 20 16 Rate Blood Pressure 131/79 109/66 94/58 O2 Sat by Pulse 97 97 97 Oximetry 08/27/20 08/27/20 08/27/20 16:00 16:15 16:30 Temperature 98.3 F Pulse Rate 103 H 101 H 102 H Pulse Rate [ 103 H From Monitor] Respiratory 20 20 22 Rate Blood Pressure 91/64 104/66 113/64 O2 Sat by Pulse 99 Oximetry 08/27/20 08/27/20 08/27/20 16:45 16:52 17:00 Temperature Pulse Rate 102 H 100 H 98 H Pulse Rate [ From Monitor] Respiratory 20 20 Rate Blood Pressure 102/64 103/63 105/62 O2 Sat by Pulse 98 Oximetry 08/27/20 08/27/20 08/27/20 17:15 17:30 17:45 Temperature Pulse Rate 99 H 101 H 100 H Pulse Rate [ From Monitor] Respiratory 20 19 20 Rate Blood Pressure 101/60 103/63 97/61 O2 Sat by Pulse 97 Oximetry 08/27/20 18:00 Temperature Pulse Rate 101 H Pulse Rate [ From Monitor] Respiratory 20 Rate Blood Pressure 104/61 O2 Sat by Pulse Oximetry General appearance: Present: no acute distress, cachectic, other - EENT ENT: clear oral mucosa, other (Unresponsive) Ears: bilateral: normal - Neck Neck: supple, normal ROM - Respiratory Respiratory effort: normal Respiratory: bilateral: CTA, diminished, rales, rhonchi - Breasts Breasts: normal - Cardiovascular Rhythm: regular Heart Sounds: Present: S1 & S2. Absent: gallop, rub Extremities: pulses intact, No edema, normal color, Full ROM - Gastrointestinal General gastrointestinal: Present: soft, non-tender, non-distended, hypoactive bowel sounds, other (Scaphoid) - Genitourinary Female genitourinary: normal - Integumentary Integumentary: clear, warm, dry - Musculoskeletal Musculoskeletal: strength equal bilaterally, generalized weakness, other (Debility) - Neurologic Neurologic: moves all extremities - Psychiatric Psychiatric: other (Unresponsive) - Labs CBC & Chem 7: 08/27/20 03:37 08/27/20 00:46 Labs: Abnormal lab results 08/26/20 08/27/20 08/27/20 Range/Units 17:56 00:06 00:46 WBC (4.5-11.0) K/mm3 RBC (3.65-5.03) M/mm3 MCV (79-97) fl MCH (28-32) pg RDW (13.2-15.2) % Seg Neutrophils # Man (1.8-7.7) K/mm3 Monocytes # (Manual) (0.0-0.8) K/mm3 Eosinophils # (Manual) (0.0-0.4) K/mm3 ABG pH (7.350-7.450) pH Units ABG pO2 (80.0-90.0) mm Hg ABG Hemoglobin (12.0-16.0) gm/dl Oxyhemoglobin (95.0-99.0) % Sodium 135 L (137-145) mmol/L Carbon Dioxide 19 L (22-30) mmol/L Creatinine < 0.2 L (0.6-1.2) mg/dL Glucose 141 H (65-100) mg/dL POC Glucose 108 H 152 H (70-105) mg/dL Calcium 7.8 L (8.4-10.2) mg/dL AST 105 H (5-40) units/L ALT 72 H (7-56) units/L Total Protein 5.8 L (6.3-8.2) g/dL Albumin 1.7 L (3.9-5) g/dL 08/27/20 08/27/20 08/27/20 Range/Units 03:37 04:10 05:30 WBC 17.0 H (4.5-11.0) K/mm3 RBC 3.30 L (3.65-5.03) M/mm3 MCV 98 H (79-97) fl MCH 33 H (28-32) pg RDW 15.9 H (13.2-15.2) % Seg Neutrophils # Man 11.7 H (1.8-7.7) K/mm3 Monocytes # (Manual) 1.0 H (0.0-0.8) K/mm3 Eosinophils # (Manual) 0.5 H (0.0-0.4) K/mm3 ABG pH 7.471 H (7.350-7.450) pH Units ABG pO2 70.9 L (80.0-90.0) mm Hg ABG Hemoglobin 10.0 L (12.0-16.0) gm/dl Oxyhemoglobin 94.8 L (95.0-99.0) % Sodium (137-145) mmol/L Carbon Dioxide (22-30) mmol/L Creatinine (0.6-1.2) mg/dL Glucose (65-100) mg/dL POC Glucose 123 H (70-105) mg/dL Calcium (8.4-10.2) mg/dL AST (5-40) units/L ALT (7-56) units/L Total Protein (6.3-8.2) g/dL Albumin (3.9-5) g/dL 08/27/20 Range/Units 12:02 WBC (4.5-11.0) K/mm3 RBC (3.65-5.03) M/mm3 MCV (79-97) fl MCH (28-32) pg RDW (13.2-15.2) % Seg Neutrophils # Man (1.8-7.7) K/mm3 Monocytes # (Manual) (0.0-0.8) K/mm3 Eosinophils # (Manual) (0.0-0.4) K/mm3 ABG pH (7.350-7.450) pH Units ABG pO2 (80.0-90.0) mm Hg ABG Hemoglobin (12.0-16.0) gm/dl Oxyhemoglobin (95.0-99.0) % Sodium (137-145) mmol/L Carbon Dioxide (22-30) mmol/L Creatinine (0.6-1.2) mg/dL Glucose (65-100) mg/dL POC Glucose 133 H (70-105) mg/dL Calcium (8.4-10.2) mg/dL AST (5-40) units/L ALT (7-56) units/L Total Protein (6.3-8.2) g/dL Albumin (3.9-5) g/dL - Imaging and cardiology EKG: report reviewed, image reviewed Chest x-ray: report reviewed, image reviewed CT Scan - head: report reviewed, image reviewed HEART Score - HEART Score Risk factors: 1-2 risk factors Troponin: Troponin T < 0.010 ng/mL (0.00-0.029) 07/11/20 21:17 Troponin: < normal limit - Critical Actions Critical Actions: 0-3 pts:0.9-1.7%risk of adverse cardiac event.Candidate for discharge
[2020-08-28] MEDS ORDERED: LANSOPRAZOLE 30 MG SOLUTAB FEEDTUBE ONE (09:21)
[2020-08-28] MEDS ORDERED: levETIRAcetam 500 MG/5 ML ORAL LIQD ONE (09:21)
[2020-08-28] MEDS ORDERED: VALPROIC ACID 250 MG/5 ML ORAL LIQD ONE (09:21)
[2020-08-28] MEDS ORDERED: HEPARIN 5,000 UNIT/1 ML VIAL ONE ×2 (09:21→17:32)
[2020-08-28] MEDS ORDERED: SODIUM CHLORIDE 0.9% 100 ML IVPB ONE (10:00)
[2020-08-28] MEDS ORDERED: PHENYTOIN 100 MG/2 ML VIAL IV ONE (10:00)
[2020-08-28] MEDS ORDERED: METRONIDAZOLE IV ONE (12:26)
[2020-08-28] MEDS ORDERED: NS IV ONE (12:26)
[2020-08-28] MEDS: INSULIN REGULAR, HUMAN 100 UNIT/ML 3ML VIAL SUB-Q SCH ×2 (17:14→17:30)
[2020-08-28] MEDS: VANCOMYCIN 250 MG/10 ML ORAL LIQD PO SCH ×2 (17:15→17:35)
[2020-08-28] MEDS: PHENYTOIN 100 MG in SODIUM CHLORIDE 0.9% 100 ML IV SCH ×2 (17:15→21:46)
[2020-08-28] MEDS: HEPARIN 5,000 UNIT/1 ML VIAL SUB-Q SCH ×2 (17:15→17:35)
[2020-08-28] MEDS: metroNIDAZOLE/NS 500 MG/100 ML 500 MG/100 ML BAG IV SCH ×2 (17:15→20:26)
[2020-08-28] MEDS: LACOSAMIDE 100 MG TAB PO SCH ×2 (17:16→21:47)
[2020-08-28] MEDS: LANSOPRAZOLE 30 MG SOLUTAB FEEDTUBE SCH (17:16)
[2020-08-28] MEDS: VALPROIC ACID 250 MG/5 ML ORAL LIQD FEEDTUBE SCH ×2 (17:16→21:46)
[2020-08-28] MEDS: MEGESTROL 400 MG/10 ML ORAL LIQD PO SCH (17:16)
[2020-08-28] MEDS: levETIRAcetam 500 MG/5 ML ORAL LIQD PO SCH ×2 (17:16→21:46)
[2020-08-28] MEDS: SODIUM CHLORIDE 0.9% 1000 ML 1,000 ML IV SCH (18:38)
--- NOTE | 2020-08-28 19:23 | Progress Note ---
Assessment and Plan Cultures: Blood culture on 07/11/2020 no growth Urine culture on 07/11/2020 no growth CSF culture 08/16/2020 no growth Tracheal aspirate date 08/22/2020 usual respiratory adarsh Assessment: 60 years old female with a schizoaffective disorder admitted on 07/11/2020 due to altered mental status/confusion and poor p.o. intake found to have intractable seizures within a prolonged hospital stay with intractable seizures rhabdomyolysis, C. difficile colitis on 07/20/2020, catatonia, poor p.o. intake, recent pneumonia, now with: #Sepsis with septic shock: Not present on admission with fever, tachycardia, hypotension, off dopamine drip; source C. difficile colitis/recurrent #Acute respiratory failure: Intubated for airway protection. #Recurrent C. difficile colitis: Initial C. difficile colitis on 07/20/2020 treated with vancomycin from 07/20/2020 until 08/03/2020. Patient then received cefepime and vancomycin IV for pneumonia on 08/20/2020. KUB normal. #Pneumonia: Treated with cefepime and vancomycin. #Intractable seizures: Per neurology #Schizo affective disorder with catatonia: Per psych #Electrolytes imbalance: Per primary team. Recommendations: -Continue vancomycin p.o. 500 g 4 times daily total 10 days -Continue metronidazole 500 mg every 8 hours -Avoid broad-spectrum antibiotics -Consider CT of the abdomen and pelvis if leukocytosis/fever does not improve Will follow. Gloria Sinclair MD Infectious Diseases Log Inspector [facility] ([facility]) M [phone] O [phone] Subjective Date of service: 08/28/20 Principal diagnosis: C diff status epilepticus Interval history: Remains intubated, off dopamine drip, no fever Objective - Exam Narrative Exam: General appearance: Intubated on the ventilator Eyes: anicteric sclerae, moist conjunctivae; no lid-lag; PERRLA HENT: Atraumatic; oropharynx limited due to endotracheal tube Lungs: CTA CV: RRR no murmur Abdomen: Soft, non-tender Extremities: no edema, no cyanosis Skin: No rash. Psych: Intubated no agitated Neuro: Unresponsive. - Constitutional Vitals: Vital Signs Temp Pulse Resp BP Pulse Ox 99.3 F 96 H 20 103/57 100 08/27/20 20:00 08/28/20 18:00 08/28/20 18:00 08/28/20 18:00 08/28/20 18:00 Temperature -Last 24 Hours Temperature 99.3 F - Labs CBC & Chem 7: 08/27/20 03:37 08/27/20 00:46 Labs: Abnormal lab results 08/27/20 08/27/20 08/28/20 Range/Units 17:49 23:22 05:31 POC Glucose 121 H 113 H 106 H (70-105) mg/dL
[2020-08-29] MEDS: INSULIN REGULAR, HUMAN 100 UNIT/ML 3ML VIAL SUB-Q SCH ×4 (00:30→18:55)
[2020-08-29] MEDS: VANCOMYCIN 250 MG/10 ML ORAL LIQD PO SCH ×4 (00:32→18:54)
[2020-08-29] MEDS: HEPARIN 5,000 UNIT/1 ML VIAL SUB-Q SCH ×3 (02:19→18:56)
[2020-08-29 02:47] LABS: Hematocrit 29.1 % (30.3-42.9); Hemoglobin 9.9 gm/dl (10.1-14.3); Mean Corpuscular HGB Conc 34 % (30-34); Mean Corpuscular Volume 97 fl (79-97); Platelet Count 449 K/mm3 (140-440); Red Blood Count 2.99 M/mm3 (3.65-5.03); Red Cell Distribution Width 15.9 % (13.2-15.2)
[2020-08-29 03:08] LABS: Basophils # (Auto) 0.1 K/mm3 (0.0-0.1); Basophils % (Auto) 0.4 % (0.0-1.8); Eosinophils # (Auto) 0.2 K/mm3 (0.0-0.4); Eosinophils % (Auto) 1.1 % (0.0-4.3); Lymphocytes # (Auto) 3.2 K/mm3 (1.2-5.4); Monocytes # (Auto) 1.1 K/mm3 (0.0-0.8); Monocytes % (Auto) 6.1 % (0.0-7.3)
[2020-08-29 03:09] LABS: Alanine Aminotransferase 71 units/L (7-56); Albumin 1.9 g/dL (3.9-5); Blood Urea Nitrogen 8 mg/dL (7-17); Calcium 7.6 mg/dL (8.4-10.2); Hemolysis Index 10
[2020-08-29 03:23] LABS: BUN/Creatinine Ratio 40
--- NOTE | 2020-08-29 04:06 | XRay Report ---
CHEST 1 VIEW 3:00 AM INDICATION / CLINICAL INFORMATION: Respiratory failure. COMPARISON: 08/27/20. FINDINGS: SUPPORT DEVICES: The positions of the endotracheal tube and right PICC have not changed. HEART / MEDIASTINUM: Unchanged. LUNGS / PLEURA: Left retrocardiac opacity with obscuration of the hemidiaphragm has not changed. No p neumothorax. ADDITIONAL FINDINGS: No significant additional findings. IMPRESSION: Left lower lobe atelectasis/consolidation has not changed significantly. Signer Name: Kwame Nails MD Signed: 08/29/2020 4:01 AM Workstation Name: [id number]
[2020-08-29 04:20] LABS: ABG HCO3 23.5 mmol/L (20.0-26.0); ABG Methemoglobin 0.5 % (0.0-1.5); ABG Oxygen Saturation 97.7 % (95.0-99.0); ABG PCO2 33.4 mm Hg; ABG PH 7.465 pH Units (7.350-7.450); ABG PO2 96.3 mm Hg (80.0-90.0)
[2020-08-29] MEDS: metroNIDAZOLE/NS 500 MG/100 ML 500 MG/100 ML BAG IV SCH ×3 (04:30→20:35)
[2020-08-29] MEDS: PHENYTOIN 100 MG in SODIUM CHLORIDE 0.9% 100 ML IV SCH ×3 (05:08→22:04)
[2020-08-29] MEDS: DOPamine/D5W 800 MG/250 ML 800 MG/250 ML BAG IV SCH (08:07)
--- NOTE | 2020-08-29 09:22 | Progress Note ---
Assessment and Plan Cultures: Blood culture on 07/11/2020 no growth Urine culture on 07/11/2020 no growth CSF culture 08/16/2020 no growth Tracheal aspirate date 08/22/2020 usual respiratory adarsh Assessment: 60 years old female with a schizoaffective disorder admitted on 07/11/2020 due to altered mental status/confusion and poor p.o. intake found to have intractable seizures within a prolonged hospital stay with intractable seizures rhabdomyolysis, C. difficile colitis on 07/20/2020, catatonia, poor p.o. intake, recent pneumonia, now with: #Sepsis with septic shock: Not present on admission with fever, tachycardia, hypotension, dopamine drip reinitiated overnight; source C. difficile colitis/recurrent #Acute respiratory failure: Intubated for airway protection. #Recurrent C. difficile colitis: Initial C. difficile colitis on 07/20/2020 treated with vancomycin from 07/20/2020 until 08/03/2020. Patient then received cefepime and vancomycin IV for pneumonia on 08/20/2020. KUB normal. #Pneumonia: Treated with cefepime and vancomycin. #Intractable seizures: Per neurology #Schizo affective disorder with catatonia: Per psych #Electrolytes imbalance: Per primary team. Recommendations: -Continue vancomycin p.o. 500 g 4 times daily total 10 days -Continue metronidazole 500 mg every 8 hours -Avoid broad-spectrum antibiotics -Obtain CT abdomen today-ordered Will follow. Gloria Sinclair MD Infectious Diseases [place] [facility] ([facility]) [phone] O [phone] Subjective Date of service: 08/29/20 Principal diagnosis: C diff status epilepticus Interval history: Patient remains intubated, now back on dopamine drip, no fever. Rectal tube in place diarrhea improving. Objective - Exam Narrative Exam: General appearance: Intubated on the ventilator Eyes: anicteric sclerae, moist conjunctivae; no lid-lag; PERRLA HENT: Atraumatic; oropharynx limited due to endotracheal tube Lungs: CTA CV: RRR no murmur Abdomen: Soft, non-tender Extremities: no edema, no cyanosis Skin: No rash. Psych: Intubated no agitated Neuro: Unresponsive. - Constitutional Vitals: Vital Signs Temp Pulse Resp BP Pulse Ox 98.0 F 108 H 20 95/58 100 08/29/20 08:00 08/29/20 08:30 08/29/20 06:00 08/29/20 08:30 08/29/20 08:30 Temperature -Last 24 Hours Temperature 98.0 F Temperature 97.9 F Temperature 98.8 F Temperature 98.6 F - Labs CBC & Chem 7: 08/29/20 01:57 08/29/20 01:57 Labs: Abnormal lab results 08/27/20 08/27/20 08/28/20 Range/Units 17:49 23:22 05:31 WBC (4.5-11.0) K/mm3 RBC (3.65-5.03) M/mm3 Hgb (10.1-14.3) gm/dl Hct (30.3-42.9) % MCH (28-32) pg RDW (13.2-15.2) % Plt Count (140-440) K/mm3 Webster # (Auto) (0.0-0.8) K/mm3 Seg Neutrophils % (40.0-70.0) % Seg Neutrophils # (1.8-7.7) K/mm3 ABG pH (7.350-7.450) pH Units ABG pO2 (80.0-90.0) mm Hg ABG Hemoglobin (12.0-16.0) gm/dl Sodium (137-145) mmol/L Carbon Dioxide (22-30) mmol/L Creatinine (0.6-1.2) mg/dL Glucose (65-100) mg/dL POC Glucose 121 H 113 H 106 H (70-105) mg/dL Calcium (8.4-10.2) mg/dL AST (5-40) units/L ALT (7-56) units/L Total Protein (6.3-8.2) g/dL Albumin (3.9-5) g/dL 08/28/20 08/29/20 08/29/20 Range/Units 17:45 01:57 01:57 WBC 18.7 H (4.5-11.0) K/mm3 RBC 2.99 L (3.65-5.03) M/mm3 Hgb 9.9 L (10.1-14.3) gm/dl Hct 29.1 L (30.3-42.9) % MCH 33 H (28-32) pg RDW 15.9 H (13.2-15.2) % Plt Count 449 H (140-440) K/mm3 Webster # (Auto) 1.1 H (0.0-0.8) K/mm3 Seg Neutrophils % 75.4 H (40.0-70.0) % Seg Neutrophils # 14.1 H (1.8-7.7) K/mm3 ABG pH (7.350-7.450) pH Units ABG pO2 (80.0-90.0) mm Hg ABG Hemoglobin (12.0-16.0) gm/dl Sodium 135 L (137-145) mmol/L Carbon Dioxide 21 L (22-30) mmol/L Creatinine < 0.2 L (0.6-1.2) mg/dL Glucose 114 H (65-100) mg/dL POC Glucose 128 H (70-105) mg/dL Calcium 7.6 L (8.4-10.2) mg/dL AST 105 H (5-40) units/L ALT 71 H (7-56) units/L Total Protein 5.5 L (6.3-8.2) g/dL Albumin 1.9 L (3.9-5) g/dL 08/29/20 Range/Units 03:43 WBC (4.5-11.0) K/mm3 RBC (3.65-5.03) M/mm3 Hgb (10.1-14.3) gm/dl Hct (30.3-42.9) % MCH (28-32) pg RDW (13.2-15.2) % Plt Count (140-440) K/mm3 Webster # (Auto) (0.0-0.8) K/mm3 Seg Neutrophils % (40.0-70.0) % Seg Neutrophils # (1.8-7.7) K/mm3 ABG pH 7.465 H (7.350-7.450) pH Units ABG pO2 96.3 H (80.0-90.0) mm Hg ABG Hemoglobin 8.1 L (12.0-16.0) gm/dl Sodium (137-145) mmol/L Carbon Dioxide (22-30) mmol/L Creatinine (0.6-1.2) mg/dL Glucose (65-100) mg/dL POC Glucose (70-105) mg/dL Calcium (8.4-10.2) mg/dL AST (5-40) units/L ALT (7-56) units/L Total Protein (6.3-8.2) g/dL Albumin (3.9-5) g/dL
[2020-08-29] MEDS: MEGESTROL 400 MG/10 ML ORAL LIQD PO SCH (10:29)
[2020-08-29] MEDS: VALPROIC ACID 250 MG/5 ML ORAL LIQD FEEDTUBE SCH ×2 (10:29→22:04)
[2020-08-29] MEDS: levETIRAcetam 500 MG/5 ML ORAL LIQD PO SCH ×2 (10:29→22:03)
[2020-08-29] MEDS: LANSOPRAZOLE 30 MG SOLUTAB FEEDTUBE SCH (10:30)
[2020-08-29] MEDS: LACOSAMIDE 100 MG TAB PO SCH ×3 (10:31→22:04)
[2020-08-29] MEDS: SODIUM CHLORIDE 0.9% 1000 ML 1,000 ML IV SCH (10:45)
--- NOTE | 2020-08-29 14:21 | Progress Note ---
Assessment and Plan Assessment and plan: 1-year-old female patient with schizoaffective disorder with active hallucinations and confusion presented from [place] for altered mental status and poor intake on 07/13. She was found to have rhabdomyolysis and electrolyte imbalances. She then developed C. difficile diarrhea and she has completed her regimen of p.o. vancomycin from 07/20-08/03. RN stated patient had to liquid bowel movements today however patient is on vancomycin. Per policy if patient has the decreased BMs she was not a C. difficile sample. At the time of my exam this afternoon the patient was in her usual state with no focal seizure activity noted. However this evening when neurology examined her she was noted to have another seizure and was given Ativan IV. Antiepileptic medications adjusted. Dr. Nails spoke to Dr. Taylor about need to transfer for continuous EEG. He also recommended every hour neurochecks and intubation. Stat ABG ordered. 07/13; patient's CK levels trending down on 1678, continue IV hydration patient is more alert at times, hallucinating, Noncommunicative, severe hypokalemia, replace per protocol 07/14; potassium level significantly improved today to 3.2, replenish per protocol. CK levels trending down 828, continue IV hydration, monitor electrolytes 07/15; patient refused potassium yesterday today potassium levels again 2.7 We will add KCl to IV fluids, and IV K riders, monitor electrolytes. CK level 425. Refusing to eat confused noncommunicative. Possible inpatient psych admission when medically stable 07/16; rhabdomyolysis resolved, mild electrolyte imbalances, if corrected medical ly stable for inpatient psych placement 07/17: replete K and phosphate. repeat CBc BMP tomorrow. White count needs to be < 10 for inpt psych admission 07/18: cont to have mildly elevated white count, c/o loose stool. will check for C. def - start flagyl and cipro 07/19: White count normal today. change medications to Po. medically stable to go for inpt psych unit. 07/20; positive for C. def. patient not eating properly, refusing meds time to time. Psych now recommended outpt f/u. CM working on placement. Patient remains nonverbal, does not follow any commend and not giving any personal info. 07/21; K 2.0 today, cont to replete, follow BMP, patient remains nonverbal and not cooperative. refuses to eat and meds. cont d51/2NS. if condition doesnot improve will consider TF 07/22: Potassium level persistently remains low, magnesium 1.6 today. Will replete magnesium and potassium. Patient refusing meds and not eating at all per RN report. Totally noncooperative during the encounternot respond to any question. Keeps her eye closing and covering her face with her forearm. Will order for tube feeding and Dobbhoff tube. Continue to follow. We will also add Megace to boost appetite. 07/23: started on TF, follow BMP, change iv fluid to 1/2 NS. patient remains nonverbal 07/24; clinically unchanged, replete K, iv fluid and TF. reconsult psych as patient remains in catatonic phase 07/25: psych recommendation noted, continue tube feeding, continue to replete electrolytes as needed, follow BMP. I strongly believe her severe electrolytes derangement and encephalopathy related to her catatonia, poor oral intake other than any underlying medical conditions. There is no family contact in file, no home address available, patient appeared to be unfunded. biomedical manager working on placement. 07/26: psych recommendation noted, continue tube feeding, continue to replete electrolytes as needed, follow BMP. I strongly believe her severe electrolytes derangement and encephalopathy related to her catatonia, poor oral intake other than any underlying medical conditions. There is no family contact in file, no home address available, patient appeared to be unfunded. biomedical manager working on placement. 07/27; continue with tube feeding. There is no family contact in file, no home address available, patient appeared to be unfunded. Case management is following. 07/28; patient still on tube feeding, patient is noncommunicative. I believe her condition is related to her catatonia. Psych is following her. Currently her electrolytes are corrected. There is no family contact in file, no home address available, patient appeared to be unfunded. Case management is following. 07/29 patient is nonverbal, eyes open does not follow simple commands,, still having low-grade fever T-max 100 degrees,, lab results reviewed discussed with RN- still has loose stools, outsole caser notes reviewed, unable to contact family 07/30 no acute events overnight, diarrhea improved, stop IV fluids, disposition to be decided 07/31: executive officer presented to the bedside to attempt to fingerprint the patient to identify her. However his machine was not working 08/01:' Per outsole caser note [facility] [employer] Department has been contacted to help in identifying the patient. On officer is to report to bedside and was instructed to call the outsole caser upon arrival. 08/02/2020 still has diarrhea 08/03/2020 diarrhea improving. Today is the last day of vancomycin 08/04/2020 patient has no diarrhea 08/05: caustic cresylate shift superintendent RN reported patient had a seizure overnight, Ativan was ordered however was not administered because according to the dayshift RN he was reported that the patient "did not need the medication because she was not having a seizure at the moment". Patient remained hyponatremic and hypochloremic and after conversing with the nurse patient was not getting her prescribed dose FWF for hyponatremia which was corrected 08/06: Electrolyte imbalance discontinue, patient still catatonic 08/07: Electrolyte imbalances continue, to physician consent for PEG tube obtained and GI consulted 08/08: PEG scheduled for 08/09 08/09: s/p PEG placement with GI, hyperkalemic (potassium 5.2) s/p DE Kayexalate. 08/11; patient is on PEG tube feeding. C. difficile treated and resolved. Patient still in catatonic state. Pending guardianship. 08/12/2020 patient on PEG tube feeding. Guardianship pending. Pending placement. 08/13: no aucte events reported overnight, gaurdenship pending. 08/14/20: quality and futility of care is questionable, patient not following any commands, pupillary reflex noted, neurology and ethics consult placed 08/15: Neurology recommended LP, EEG, CT head and MRI brain with and without contrast which are all pending. 08/16: Physician consult obtained for LP which was completed today. Bilateral lower extremity x-rays noted no metal and a physician consent was obtained for contrast therefore MRI brain pending. EEG still pending. Patient again has hypochloremia and hyponatrema 08/17: status epilepticus noted on EEG, Neurology recommends transfer for continues EEG. 08/19: seizures subsided. No active seizures. Pending placement. 08/20: CXR shows possible PNA, initiated on cefepime and vancomycin 08/21. Discussed with neurologist. Patient needs to be transferred to a tertiary center for continuous EEG monitoring Transfer to [facility] initiated. As per [place], case will be sent to and earliest time for possible transfer will be tomorrow. In the meantime, patient will need intubation and sedation for status as per neurology. Critical care consult placed. Vent orders placed. Anesthesia paged. Patient will be going to the ICU. Transfer order placed. Discussed with anesthesia Dr Hawthorne 6:50 PM and told him why patient needs to be intubated immediately. Apparently, patient transfer orders still in progress and patient still on the floors during his evaluation at bedside. Patient cannot be intubated or while on the floor as per anesthesia MD. Patient is to go to ICU and then intubated. 08/22. Overnight events noted. Patient intubated this AM and started on versed. Discussed with [facility], case is still being reviewed. Called [facility] and was told facility do not have continuous EEG monitoring. She remains on multiple seizure medications. Continue BP medications. Neurology is following closely. 08/23. Patient seen and examined at bedside this morning. Patient has been denied transfer by [facility] as no neuro critical care ICU available. [facility] only accepting patients with acute stroke, gabriel or trauma. Placed a call to [facility] and gave details today. Awaiting callback. Otherwise patient remains sedated. EEG performed yesterday shows significant improvement in status epilepticus. Neurology to review today. 08/24. I discussed with transfer center at [facility] and ne urologist Dr. Trivedi requested that latest EEG be reviewed by teleneurology prior to consideration. As patient seizures have subsided, weaning will be on alternative. Neurology notes reviewed-patient to be maintained on sedation for now until it is safe too wean (needs continuous EEG monitoring for this]. I called back transfer center at [facility] was told there are no beds at this time. Patient noted to have Fever overnight. Also has loose watery stools and procalcitonin is elevated. She has been on antibiotics for 4 days now. Repeat chest x-ray shows no new pneumonia. Due to diarrhea, will DC antibiotics for now. Send stool for C. difficile as she had C. difficile earlier during this admission. We will consult ID if C. difficile is positive. Will maintain on current medications for now 08/25. C diff is positive. Started on PO vancomycin. ID consulted. DCed IV antibiotics. Monitor WBC. Will get abdominal CT if no improvement is noted. [facility] but no beds available today. Neurology recommendations appreciated. Will keep sedatives at same dose. 08/26. Patient needs continuous EEG monitoring. Called [facility] and [facility] but still have no beds available. [facility] is not accepting patients except Acute stroke, gbariel and trauma patients. [facility] does not have continuous EEG monitoring. She is still on low dose lorazepam. Discussed with CM to find other hospitals where patient can have the EEG monitoring. In the mean time, patient may need to have titration of sedatives but this may not be possible as per neurology. Neurology not available this weekend to assist. Plan to discuss alternatives with neurology on Thursday. Otherwise, she is still on low dose dopamine and PO vancomycin for recurrent clostridium difficile infection. ID is on board. AM labs not drawn. Labs reordered 08/28: Continues on ventilatory support, awaiting transfer for continouse EEG. - Patient Problems (1) Altered mental state Current Visit: Yes Status: Acute Qualifiers: Altered mental status type: unspecified Qualified Code(s): R41.82 - Altered mental status, unspecified Plan to address problem: Possible continuous seizure. May be exacerbated by underlying infections in the past and/or schizoaffective disorder. (2) DVT prophylaxis Current Visit: Yes Status: Acute (3) Status epilepticus Current Visit: Yes Status: Acute Plan to address problem: Plan to address problem: RN reported seizure activity on on 08/05; Ativan was ordered however was not administered because according to the daysilft RN he was reported that the patient "did not need the medication because she was not having a seizure at the moment". After reviewing nursing notes it is noted that she had reported seizure activity by RN on 08/12 and was given Ativan. Hospitalist was informed No seizure activity reported since Neurology consulted EEG no no status epilepticus Pt is on depakote 1000 mg bid; Keppra 1500 mg bid; vimpat 200 mg iv q12; and now initiated on Fosphentoin (load and maintenance) despite drug-drug interaction on 08/21 per neurology Per neurology: Patient will require transfer to a facility w/ cEEG monitoring for higher level of care as EEG here is intermittently available and intermittently read at present; increase depakote to 1000 mg bid (bolus of 500 mg via peg); increase Keppra to 1500 mg bid; initiate vimpat 200 mg iv q12; s/p Ativan 1 mg IV x 1 dose given; pending MRI Brain w/ wo contrast. Recommend q1 hour neurochecks. 08/19 it was noted that patient's seizure activity subsided therefore was not transferred to tertiary care 08/21 noted to have a focal seizure when neurology was examining the patient, given Ativan x1 and started on a third antiepileptic. Transfer to [facility] reinitiated today. Discussed [facility] neurology - patient will need intubation and sedation. Discussed with anesthesia and bead maker. Transfer order placed. Vent bundle ordered. -08/22. Patient intubated this AM. Had another episode of seizure early AM as p wire spring relay adjuster prior to intubation. Neurology currently following. Patient is on Depakote, Keppra, fosphenytoin and Vimpat. -08/23. EEG shows improvement after sedation and intubation. Teleneurology following -08/24 - 08/25. No seizures noted. Still on lorazepam drip. Will order EEG repeat. -08/26. No beds at [facility], [facility]. [facility] has no continuous EEG monitor. [place] only acceptinig stroke patients. Discussed with CM to see if he can find hospitals that have EEG capability here in [place]. 08/26/2020 received call from [facility] about reconnecting with transfer service from [facility] [phone]. We will follow-up in a.m. to see if they have a bed for continuous EEG capabilities. Otherwise patient remains unresponsive nonverbal at baseline. Intubated. (4) Schizoaffective disorder Current Visit: Yes Status: Chronic Plan to address problem: Haldol as needed antipsychotic medications. (5) C. difficile diarrhea Current Visit: Yes Status: Resolved Plan to address problem: Continue vancomycin for an additional 4 times a day for total of 10 days. No loose stool today. (6) Rhabdomyolysis Current Visit: Yes Status: Resolved Qualifiers: Rhabdomyolysis type: non-traumatic Qualified Code(s): M62.82 - Rhabdomyolysis Plan to address problem: Resolving with aggressive IV fluid hydration before. (7) Hyponatremia Current Visit: Yes Status: Resolved Plan to address problem: Admit sodium 142 07/31 134, slight hyponatremia at this time no intervention needed, 08/01 Na 136 however she has remained hyponatremic Hydration with free water flush; 50ml q6 hours while hyponatremic-> informed RN on 08/06 08/07 sodium 136 08/09 sodium 135 Trend BMP 08/10 sodium 141 08/15 sodium 134; informed RN FWF are ordered to be 50 mL every 6 while hyponatremic 08/16 sodium 131, nutrition notes reviewed and FWF seems to be changed 100 mL q4 hours 08/17 sodium 134 08/20 hyponatremia resolved 08/27/2020 remains stable. (8) Metabolic encephalopathy Current Visit: Yes Status: Acute Plan to address problem: kim to address problem: Multifactorial , schizoaffective disorder and withdrawal seizures 07/11 CT head Normal nonenhanced CT scan of the brain Patient came from [place], psych evaluation noted Psych recommends outpt f/u 08/14 neurology consult: Recommends obtaining EEG, LP, CTA head, MRI brain with and without contrast 08/15 CT head shows no acute abnormalities and no changes since 07/11/202008/16: LP under fluoroscopy completed. CSF analysis shows no evidence of encephalitis 08/16 MRI brain with/without contrast pending: Shows no acute abnormalities Supportive care -Now on multiple antiseizure medications. Intubated and sedated. Plan for transfer to [address] [place] [address] initiated (9) Discharge planning issues Current Visit: Yes Status: Acute Plan to address problem: Patient's identity is not confirmed [facility] has been contacted to aid in identification however unsuccessful [facility] Department have been contacted Inpatient records requested from [facility] again on 08/02 Risk-management made aware of patient again on 08/02 Patient identification confirmed with [facility] Department Attempted to contact children, CM has an email address and an email was sent over the weekend however there is been no reply 08/07: 2 physician consent for PEG tube obtained and GI consulted for PEG tube placement 08/09: PEG tube placed, resume tube feeds within 4 hours [facility] in the process of assuming guardianship over the patient for placement 08/14 ethics consulted 08/17 Dr. Nails requested a transfer to another facility for continuous EEG as the patient may be in status epilepticus. Patient seizures reportedly improved and transfer was initiated 08/21 transfer to [facility] initiated today as patient still having seizure episodes. -08/23. I discussed with transfer center at [facility] and neurologist Dr. Trivedi requested that latest EEG be reviewed by telemetry neurology. History Interval history: patient seen and examined, remains on full ventilatory support Hospitalist Physical - Physical exam Narrative exam: General appearance: Present: no acute distress, cachectic, other, orally intubated - EENT ENT: clear oral mucosa, other (Unresponsive) Ears: bilateral: normal - Neck Neck: supple, normal ROM - Respiratory Respiratory effort: normal Respiratory: bilateral: CTA, diminished, rales, rhonchi - Breasts Breasts: normal - Cardiovascular Rhythm: regular Heart Sounds: Present: S1 & S2. Absent: gallop, rub Extremities: pulses intact, No edema, normal color, Full ROM - Gastrointestinal General gastrointestinal: Present: soft, non-tender, non-distended, hypoactive bowel sounds, other (Scaphoid) - Genitourinary Female genitourinary: normal - Integumentary Integumentary: clear, warm, dry - Musculoskeletal Musculoskeletal: other (Debility) - Neurologic Neurologic: unresponsive - Psychiatric Psychiatric: other (Unresponsive) - Constitutional Vitals: Temp Pulse Resp BP Pulse Ox 98.0 F 96 H 20 95/51 100 08/29/20 08:00 08/29/20 13:45 08/29/20 13:45 08/29/20 13:45 08/29/20 13:15 General appearance: Present: no acute distress, cachectic, other HEART Score - HEART Score Risk factors: 1-2 risk factors Troponin: Troponin T < 0.010 ng/mL (0.00-0.029) 07/11/20 21:17 Troponin: < normal limit - Critical Actions Critical Actions: 0-3 pts:0.9-1.7%risk of adverse cardiac event.Candidate for discharge Results - Labs CBC & Chem 7: 08/29/20 22:00 08/29/20 22:00 Labs: Laboratory Last Values WBC 18.7 K/mm3 (4.5-11.0) H 08/29/20 01:57 RBC 2.99 M/mm3 (3.65-5.03) L 08/29/20 01:57 Hgb 9.9 gm/dl (10.1-14.3) L 08/29/20 01:57 Hct 29.1 % (30.3-42.9) L 08/29/20 01:57 MCV 97 fl (79-97) 08/29/20 01:57 MCH 33 pg (28-32) H 08/29/20 01:57 MCHC 34 % (30-34) 08/29/20 01:57 RDW 15.9 % (13.2-15.2) H 08/29/20 01:57 Plt Count 449 K/mm3 (140-440) H 08/29/20 01:57 Lymph % (Auto) 17.0 % (13.4-35.0) 08/29/20 01:57 Morrison % (Auto) 6.1 % (0.0-7.3) 08/29/20 01:57 Eos % (Auto) 1.1 % (0.0-4.3) 08/29/20 01:57 Baso % (Auto) 0.4 % (0.0-1.8) 08/29/20 01:57 Lymph # (Auto) 3.2 K/mm3 (1.2-5.4) 08/29/20 01:57 Morrison # (Auto) 1.1 K/mm3 (0.0-0.8) H 08/29/20 01:57 Eos # (Auto) 0.2 K/mm3 (0.0-0.4) 08/29/20 01:57 Baso # (Auto) 0.1 K/mm3 (0.0-0.1) 08/29/20 01:57 Add Manual Diff Complete 08/27/20 03:37 Total Counted 100 08/27/20 03:37 Seg Neutrophils % 75.4 % (40.0-70.0) H 08/29/20 01:57 Seg Neuts % (Manual) 69.0 % (40.0-70.0) 08/27/20 03:37 Band Neutrophils % 5.0 % 08/27/20 03:37 Lymphocytes % (Manual) 14.0 % (13.4-35.0) 08/27/20 03:37 Reactive Lymphs % (Man) 0 % 08/27/20 03:37 Monocytes % (Manual) 6.0 % (0.0-7.3) 08/27/20 03:37 Eosinophils % (Manual) 3.0 % (0.0-4.3) 08/27/20 03:37 Basophils % (Manual) 0 % (0.0-1.8) 08/27/20 03:37 Metamyelocytes % 3.0 % 08/27/20 03:37 Myelocytes % 0 % 08/27/20 03:37 Promyelocytes % 0 % 08/27/20 03:37 Blast Cells % 0 % 08/27/20 03:37 Nucleated RBC % Not Reportable 08/27/20 03:37 Seg Neutrophils # 14.1 K/mm3 (1.8-7.7) H 08/29/20 01:57 Seg Neutrophils # Man 11.7 K/mm3 (1.8-7.7) H 08/27/20 03:37 Band Neutrophils # 0.9 K/mm3 08/27/20 03:37 Lymphocytes # (Manual) 2.4 K/mm3 (1.2-5.4) 08/27/20 03:37 Abs React Lymphs (Man) 0.0 K/mm3 08/27/20 03:37 Monocytes # (Manual) 1.0 K/mm3 (0.0-0.8) H 08/27/20 03:37 Eosinophils # (Manual) 0.5 K/mm3 (0.0-0.4) H 08/27/20 03:37 Basophils # (Manual) 0.0 K/mm3 (0.0-0.1) 08/27/20 03:37 Metamyelocytes # 0.5 K/mm3 08/27/20 03:37 Myelocytes # 0.0 K/mm3 08/27/20 03:37 Promyelocytes # 0.0 K/mm3 08/27/20 03:37 Blast Cells # 0.0 K/mm3 08/27/20 03:37 Pathologist Review 08/26/20 14:58 WBC Morphology Not Reportable 08/27/20 03:37 Hypersegmented Neuts Not Reportable 08/27/20 03:37 Hyposegmented Neuts Not Reportable 08/27/20 03:37 Hypogranular Neuts Not Reportable 08/27/20 03:37 Smudge Cells Not Reportable 08/27/20 03:37 Toxic Granulation Not Reportable 08/27/20 03:37 Toxic Vacuolation Not Reportable 08/27/20 03:37 Dohle Bodies Not Reportable 08/27/20 03:37 Pelger-Huet Anomaly Not Reportable 08/27/20 03:37 Rashad Rods Not Reportable 08/27/20 03:37 Platelet Estimate Consistent w auto 08/27/20 03:37 Clumped Platelets Not Reportable 08/27/20 03:37 Plt Clumps, EDTA Not Reportable 08/27/20 03:37 Large Platelets Not Reportable 08/27/20 03:37 Giant Platelets Not Reportable 08/27/20 03:37 Platelet Satelliting Not Reportable 08/27/20 03:37 Plt Morphology Comment Not Reportable 08/27/20 03:37 RBC Morphology Not Reportable 08/27/20 03:37 Dimorphic RBCs Not Reportable 08/27/20 03:37 Polychromasia Not Reportable 08/27/20 03:37 Hypochromasia Not Reportable 08/27/20 03:37 Poikilocytosis Not Reportable 08/27/20 03:37 Anisocytosis Few 08/27/20 03:37 Microcytosis Not Reportable 08/27/20 03:37 Macrocytosis Not Reportable 08/27/20 03:37 Spherocytes Not Reportable 08/27/20 03:37 Pappenheimer Bodies Not Reportable 08/27/20 03:37 Sickle Cells Not Reportable 08/27/20 03:37 Target Cells Few 08/27/20 03:37 Tear Drop Cells Not Reportable 08/27/20 03:37 Ovalocytes Not Reportable 08/27/20 03:37 Helmet Cells Not Reportable 08/27/20 03:37 [place] Bodies Not Reportable 08/27/20 03:37 [place] Rings Not Reportable 08/27/20 03:37 [place] Cells Not Reportable 08/27/20 03:37 Bite Cells Not Reportable 08/27/20 03:37 Crenated Cell Not Reportable 08/27/20 03:37 Elliptocytes Not Reportable 08/27/20 03:37 Acanthocytes (Spur) Not Reportable 08/27/20 03:37 Rouleaux Not Reportable 08/27/20 03:37 Hemoglobin C Crystals Not Reportable 08/27/20 03:37 Schistocytes Not Reportable 08/27/20 03:37 Malaria parasites Not Reportable 08/27/20 03:37 Ed Bodies Not Reportable 08/27/20 03:37 Hem Pathologist Commnt No 08/27/20 03:37 PT 12.5 Sec. (12.2-14.9) 08/15/20 15:26 INR 0.92 (0.87-1.13) 08/15/20 15:26 APTT 20.4 Sec. (24.2-36.6) L 08/15/20 15:26 ABG pH 7.465 pH Units (7.350-7.450) H 08/29/20 03:43 POC ABG pCO2 28.2 mmHg (32.0-48.0) L 08/25/20 04:19 ABG pCO2 33.4 mm Hg 08/29/20 03:43 POC ABG pO2 88.3 mmHg (83-108) 08/25/20 04:19 ABG pO2 96.3 mm Hg (80.0-90.0) H 08/29/20 03:43 POC ABG HCO3 23.9 08/25/20 04:19 ABG HCO3 23.5 mmol/L (20.0-26.0) 08/29/20 03:43 ABG O2 Saturation 97.7 % (95.0-99.0) 08/29/20 03:43 ABG O2 Content 11.1 (0.0-44) 08/29/20 03:43 POC ABG Base Excess 2.1 08/25/20 04:19 ABG Base Excess 0.0 mmol/L (-2.0-3.0) 08/29/20 03:43 ABG Hemoglobin 8.1 gm/dl (12.0-16.0) L 08/29/20 03:43 ABG Oxyhemoglobin 98.9 (94-98) H 08/22/20 11:18 ABG Carboxyhemoglobin 1.2 % (0.0-5.0) 08/29/20 03:43 ABG Methemoglobin 0.5 % (0.0-1.5) 08/29/20 03:43 ABG Sodium 131.6 mmol/L (136.0-145.0) L 08/25/20 04:19 ABG Potassium 2.9 mmol/L (3.40-4.50) L 08/25/20 04:19 ABG Chloride 104.0 mmol/L (98-107) 08/25/20 04:19 ABG Glucose 120 mg/dL (65-95) H 08/25/20 04:19 Oxyhemoglobin 96.0 % (95.0-99.0) 08/29/20 03:43 Carboxyhemoglobin 0.4 (0.5-1.5) L 08/22/20 11:18 FiO2 30 % 08/29/20 03:43 Sodium 135 mmol/L (137-145) L 08/29/20 01:57 Potassium 4.1 mmol/L (3.6-5.0) 08/29/20 01:57 Chloride 101.1 mmol/L (98-107) 08/29/20 01:57 Carbon Dioxide 21 mmol/L (22-30) L 08/29/20 01:57 Anion Gap 17 mmol/L 08/29/20 01:57 BUN 8 mg/dL (7-17) 08/29/20 01:57 Creatinine < 0.2 mg/dL (0.6-1.2) L 08/29/20 01:57 Estimated GFR > 60 ml/min 08/29/20 01:57 BUN/Creatinine Ratio 40 % 08/29/20 01:57 Glucose 114 mg/dL (65-100) H 08/29/20 01:57 POC Glucose 146 mg/dL (70-105) H 08/29/20 12:12 Lactic Acid 1.50 mmol/L (0.7-2.0) 07/12/20 00:04 Phosphorus 3.10 mg/dL (2.5-4.5) 07/24/20 06:00 Calcium 7.6 mg/dL (8.4-10.2) L 08/29/20 01:57 Direct Bilirubin < 0.2 mg/dL (0-0.2) 07/13/20 09:33 Magnesium 2.30 mg/dL (1.7-2.3) 08/26/20 14:58 Total Bilirubin < 0.20 mg/dL (0.1-1.2) 08/29/20 01:57 Total Creatine Kinase 102 units/L (30-135) 07/17/20 05:21 CK-MB (CK-2) 9.2 ng/mL (0.0-4.0) H 07/12/20 15:13 AST 105 units/L (5-40) H 08/29/20 01:57 ALT 71 units/L (7-56) H 08/29/20 01:57 CK-MB (CK-2) Rel Index 0.4 (0-4) 07/12/20 15:13 Alkaline Phosphatase 74 units/L (35-129) 08/29/20 01:57 Troponin T < 0.010 ng/mL (0.00-0.029) 07/11/20 21:17 Ammonia 50.0 umol/L (25-60) 08/23/20 20:30 Total Protein 5.5 g/dL (6.3-8.2) L 08/29/20 01:57 Albumin 1.9 g/dL (3.9-5) L 08/29/20 01:57 Albumin/Globulin Ratio 0.5 % 08/29/20 01:57 Procalcitonin 2.78 ng/mL (<0.15) 08/22/20 15:30 Arterial Blood Glucose 120 mg/dL (65-95) H 08/25/20 04:19 Arterial Blood Ionized Calcium 4.4 mg/dL (4.6-5.3) L 08/25/20 04:19 Urine Color Yellow (Yellow) 08/22/20 Unknown Urine Turbidity Clear (Clear) 08/22/20 Unknown Urine pH 7.0 (5.0-7.0) 08/22/20 Unknown Ur Specific Joseph 1.017 (1.003-1.030) 08/22/20 Unknown Urine Protein <15 mg/dl mg/dL (Negative) 08/22/20 Unknown Urine Glucose (UA) Neg mg/dL (Negative) 08/22/20 Unknown Urine Ketones Tr mg/dL (Negative) 08/22/20 Unknown Urine Blood Neg (Negative) 08/22/20 Unknown Urine Nitrite Neg (Negative) 08/22/20 Unknown Urine Bilirubin Neg (Negative) 08/22/20 Unknown Urine Urobilinogen < 2.0 mg/dL (<2.0) 08/22/20 Unknown Ur Leukocyte Esterase Neg (Negative) 08/22/20 Unknown Urine WBC (Auto) 7.0 /HPF (0.0-6.0) H 08/22/20 Unknown Urine RBC (Auto) 1.0 /HPF (0.0-6.0) 08/22/20 Unknown U Epithel Cells (Auto) 3.0 /HPF (0-13.0) 08/22/20 Unknown Urine Mucus Few /HPF 08/22/20 Unknown CSF Appearance Clear 08/16/20 14:18 CSF Color Colorless 08/16/20 14:18 CSF WBC 6 /mm3 (1-10) 08/16/20 14:18 CSF RBC 4 /mm3 (0-0) 08/16/20 14:18 CSF Seg Neutrophils 0 % (0-6) 08/16/20 14:18 CSF Lymphocytes % 90.0 % (40-80) 08/16/20 14:18 CSF Reactive Lymphs 0 % 08/16/20 14:18 CSF Monocytes % 10.0 % (15-45) 08/16/20 14:18 CSF Eosinophils % 0 % 08/16/20 14:18 CSF Basophils 0 % 08/16/20 14:18 CSF Pathologist Review C 08/16/20 14:18 CSF Glucose 60 mg/dL 08/16/20 14:18 CSF Total Protein 94 mg/dL 08/16/20 14:18 CSF VDRL Nonreactive (Nonreactive) 08/16/20 14:18 Vancomycin Trough 4.0 ug/mL (5.0-20.0) L 08/23/20 20:30 Salicylates < 0.3 mg/dL (2.8-20.0) L 07/11/20 21:17 Urine Opiates Screen Presumptive negative 07/11/20 Unknown Urine Methadone Screen Presumptive negative 07/11/20 Unknown Acetaminophen 5.0 ug/mL (10.0-30.0) L 07/11/20 21:17 Ur Barbiturates Screen Presumptive negative 07/11/20 Unknown Ur Phencyclidine Scrn Presumptive negative 07/11/20 Unknown Phenytoin 9.2 ug/mL (10.0-20.0) L 08/24/20 Unknown Ur Amphetamines Screen Presumptive negative 07/11/20 Unknown Valproic Acid 55.9 ug/mL (50-100) 08/24/20 Unknown U Benzodiazepines Scrn Presumptive negative 07/11/20 Unknown Urine Cocaine Screen Presumptive negative 07/11/20 Unknown U Marijuana (THC) Screen Presumptive negative 07/11/20 Unknown Drugs of Abuse Note Disclamer 07/11/20 Unknown C. difficile Tox (PCR) Positive (Negative) 08/24/20 Unknown Coronavirus (PCR) Negative (Negative) 08/23/20 10:18 Enterovirus (PCR) Cmmt See scanned result 08/16/20 14:18 HSV I DNA PCR See scanned result 08/16/20 14:18 HSV II DNA PCR See scanned result 08/16/20 14:18 VZV (Qnt-PCR) See scanned result 08/16/20 14:18 Ledesma/IV: Voiding Method Indwelling Catheter IV Catheter Type [Right Upper PICC Line arm] IV Catheter Type [Right INT / Saline Lock Antecubital] IV Catheter Type [Left Forearm INT / Saline Lock ] IV Catheter Type [Right Hand] INT / Saline Lock IV Catheter Type [Right INT / Saline Lock Forearm] IV Catheter Type [Left Hand] INT / Saline Lock Active Medications - Current Medications Current Medications: Generic Name Dose Route Start Last Admin Trade Name Freq PRN Reason Stop Dose Admin Acetaminophen 650 mg 08/24/20 09:00 08/24/20 15:06 Tylenol PO 650 mg Q4H PRN Administration TEMP > 101 Lipase/Protease/Amylase 1 each 07/22/20 07:44 08/14/20 10:[address] 10,500 Unit FEEDTUBE 1 each PRN PRN Administration For Clogged Feeding Tube Haloperidol Lactate 5 mg 07/18/20 13:15 07/21/20 22:06 Haldol IM 5 mg Q6H PRN Administration Agitation Heparin Sodium (Porcine) 5,000 unit 07/12/20 10:00 08/29/20 10:29 Heparin SUB-Q 5,000 unit Q8H KEITH Administration Hydrophilic Ointment 1 applic 08/21/20 18:21 Vaseline Lip Therapy TP Q2HR PRN Dry Lips Propofol 1,000 mg in 100 mls @ 1.524 mls/hr 08/21/20 20:00 Diprivan 10 Mg/Ml IV TITR KEITH Protocol 5 MCG/KG/MIN Dopamine HCl/Dextrose 800 mg in 250 mls @ 1.905 mls/hr 08/22/20 05:00 08/29 08:07 Intropin Drip 800 Mg/D5w 250 Ml IV 6 mcg/kg/min TITR KEITH 5.715 mls/hr Administration Protocol 2 MCG/KG/MIN Phenytoin 100 mg/ Sodium 102 mls @ 408 mls/hr 08/22/20 10:00 08/29/20 05:08 Chloride IV 408 mls/hr Q8HR KEITH Administration Lorazepam 100 mg/ Sodium 100 mls @ 1 mls/hr 08/22/20 12:00 08/25/20 15:57 Chloride/ Miscellaneous IV 1 mg/hr Information TITR KEITH 1 mls/hr Administration Protocol 1 MG/HR Sodium Chloride 1,000 mls @ 75 mls/hr 08/26/20 08:30 08/29/20 10:45 Nacl 0.9% 1000 Ml IV 75 mls/hr DIRECT KEITH Administration Metronidazole 500 mg in 100 mls @ 100 mls/hr 08/26/20 12:00 08/29/20 12:26 Flagyl 500 Mg/100 Ml IV 09/05/20 04:59 100 mls/hr Q8H KEITH Administration Protocol Insulin Human Regular 0 unit 07/23/20 09:00 08/29/20 12:28 Humulin R SUB-Q Not Given Q6HR KEITH Protocol Lacosamide 200 mg 08/21/20 22:00 08/29/20 12:27 Vimpat PO 200 mg Q12HR KEITH Administration Lansoprazole 30 mg 08/26/20 10:00 08/29/20 10:30 Prevacid Solutab FEEDTUBE 30 mg QDAY KEITH Administration Levetiracetam 1,500 mg 08/21/20 22:00 08/29/20 10:29 Keppra PO 1,500 mg BID KEITH Administration Lorazepam 2 mg 08/06/20 05:05 08/22/20 08:05 Ativan IV 2 mg Q4H PRN Administration Agitation Lorazepam 2 mg 08/22/20 11:10 08/22/20 11:18 Ativan IV 2 mg Q10MIN PRN Administration Agitation Megestrol Acetate 400 mg 07/22/20 10:00 08/29/20 10:29 Megestrol PO 400 mg QDAY KEITH Administration Midodrine 10 mg 08/29/20 14:00 Proamatine PO TID KEITH Multi-Ingred Cream/Lotion/Oil/Oint 1 applic 08/22/20 11:10 Artificial Tears Ophth Oint OU Q4HR PRN Dry Eye(s) Olanzapine 2.5 mg 07/25/20 22:00 08/28/20 21:46 Zyprexa PO 2.5 mg QHS KEITH Administration Ondansetron HCl 4 mg 07/12/20 01:06 Zofran IV Q8H PRN Nausea And Vomiting Simple Syrup 15 ml 07/22/20 07:44 Simple Syrup FEEDTUBE PRN PRN Hypoglycemia Simple Syrup 30 ml 07/22/20 07:44 Simple Syrup FEEDTUBE PRN PRN Hypoglycemia Sodium Bicarbonate 325 mg 07/22/20 07:44 Sodium Bicarbonate FEEDTUBE PRN PRN For Clogged Feeding Tube Valproic Acid 1,000 mg 08/18/20 22:00 08/29/20 10:29 Depakene Liq FEEDTUBE 1,000 mg Q12HR KEITH Administration Vancomycin HCl 500 mg 08/26/20 12:00 08/29/20 12:27 Vancomycin Po PO 09/05/20 06:01 500 mg Q6HR KEITH Administration Nutrition/Malnutrition Assess - Dietary Evaluation Nutrition/Malnutrition Findings: Nutrition Notes Start: 07/12/20 11:40 Freq: Status: Active Protocol: Document 08/24/20 11:45 AL (Rec: 08/24/20 11:57 AL [email or web address]) Co-Sign 08/24/20 11:45 MK Nutrition Notes Initial or Follow up Reassessment Other Pertinent Diagnosis C. diff (+), AMS, Rhabdomyolysis, dehydration, Hx of stroke Current Diet Nepro 1.8 at 30 ml/hr Labs/Tests Reviewed Pertinent Medications Reviewed Height 5 ft Weight 52 kg [place] Body Weight (kg) 45.45 BMI 22.4 Weight Status Appropriate Subjective/Other Information Pt tube feed is running at goal rate. K labs dropped low and pt was given KCl via IVF. K labs now WNL. Will switch pt back to Osmolite as a result Percent of energy/protein needs met: 100%/75% Burn Absent Trauma Absent GI Symptoms None Current % PO Negligible Minimum of two criteria No Energy Intake (severe) < or equal to 50% Estimated Energy Requirement > or equal to 5 days #1 Nutrition Diagnosis Inadequate oral intake Diagnosis Progress(for reassessment Continues documentation) Is patient on ventilator? Yes Is Patient Ambulatory and/or Out of Bed No REE-([place]-confined to bed) 1213.032 Calculation Used for Recommendations [place] Additional Notes Protein Needs 70-105 g/day (1. 2-2 g/kg) Fluid Needs: 1ml/kcal Nutrition Intervention Change Diet Order: Change TF to Osmolite 1.5 Nutrition Support: Osmolite 1.5 at 35 ml/hr. For Hyponatremia, flush 50 ml q4h Once resolved, flush 100 ml q4h Kcal 1,260 Protein (gm) 53 Fluid (mL) 640 Goal #1 New TF tolerance Goal #2 Meet at least 75% of total energy and protein needs via TF Anticipated Discharge Needs: Recommend Jevity 1.2 bolus 5 cans/day: Breakfast 2 cans ( 474ml), Lunch 2 cans (474ml), Dinner 1 can (237ml) with flush 100ml before and after bolus. [ End ] Follow-Up By: 08/28/20 Additional Comments FU for TF tolerance, intakes, and labs.
--- NOTE | 2020-08-29 14:21 | Progress Note ---
Assessment and Plan Assessment and plan: 1-year-old female patient with schizoaffective disorder with active hallucinations and confusion presented from [facility] for altered mental status and poor intake on 07/13. She was found to have rhabdomyolysis and electrolyte imbalances. She then developed C. difficile diarrhea and she has completed her regimen of p.o. vancomycin from 07/20-08/03. RN stated patient had to liquid bowel movements today however patient is on vancomycin. Per policy if patient has the decreased BMs she was not a C. difficile sample. At the time of my exam this afternoon the patient was in her usual state with no focal seizure activity noted. However this evening when neurology examined her she was noted to have another seizure and was given Ativan IV. Antiepileptic medications adjusted. Dr. Nails spoke to Dr. Taylor about need to transfer for continuous EEG. He also recommended every hour neurochecks and intubation. Stat ABG ordered. 07/13; patient's CK levels trending down on 1678, continue IV hydration patient is more alert at times, hallucinating, Noncommunicative, severe hypokalemia, replace per protocol 07/14; potassium level significantly improved today to 3.2, replenish per protocol. CK levels trending down 828, continue IV hydration, monitor electrolytes 07/15; patient refused potassium yesterday today potassium levels again 2.7 We will add KCl to IV fluids, and IV K riders, monitor electrolytes. CK level 425. Refusing to eat confused noncommunicative. Possible inpatient psych admission when medically stable 07/16; rhabdomyolysis resolved, mild electrolyte imbalances, if corrected medical ly stable for inpatient psych placement 07/17: replete K and phosphate. repeat CBc BMP tomorrow. White count needs to be < 10 for inpt psych admission 07/18: cont to have mildly elevated white count, c/o loose stool. will check for C. def - start flagyl and cipro 07/19: White count normal today. change medications to Po. medically stable to go for inpt psych unit. 07/20; positive for C. def. patient not eating properly, refusing meds time to time. Psych now recommended outpt f/u. CM working on placement. Patient remains nonverbal, does not follow any commend and not giving any personal info. 07/21; K 2.0 today, cont to replete, follow BMP, patient remains nonverbal and not cooperative. refuses to eat and meds. cont d51/2NS. if condition doesnot improve will consider TF 07/22: Potassium level persistently remains low, magnesium 1.6 today. Will replete magnesium and potassium. Patient refusing meds and not eating at all per RN report. Totally noncooperative during the encounternot respond to any question. Keeps her eye closing and covering her face with her forearm. Will order for tube feeding and Dobbhoff tube. Continue to follow. We will also add Megace to boost appetite. 07/23: started on TF, follow BMP, change iv fluid to 1/2 NS. patient remains nonverbal 07/24; clinically unchanged, replete K, iv fluid and TF. reconsult psych as patient remains in catatonic phase 07/25: psych recommendation noted, continue tube feeding, continue to replete electrolytes as needed, follow BMP. I strongly believe her severe electrolytes derangement and encephalopathy related to her catatonia, poor oral intake other than any underlying medical conditions. There is no family contact in file, no home address available, patient appeared to be unfunded. import manager working on placement. 07/26: psych recommendation noted, continue tube feeding, continue to replete electrolytes as needed, follow BMP. I strongly believe her severe electrolytes derangement and encephalopathy related to her catatonia, poor oral intake other than any underlying medical conditions. There is no family contact in file, no home address available, patient appeared to be unfunded. import manager working on placement. 07/27; continue with tube feeding. There is no family contact in file, no home address available, patient appeared to be unfunded. Case management is following. 07/28; patient still on tube feeding, patient is noncommunicative. I believe her condition is related to her catatonia. Psych is following her. Currently her electrolytes are corrected. There is no family contact in file, no home address available, patient appeared to be unfunded. Case management is following. 07/29 patient is nonverbal, eyes open does not follow simple commands,, still having low-grade fever T-max 100 degrees,, lab results reviewed discussed with RN- still has loose stools, nurse case management notes reviewed, unable to contact family 07/30 no acute events overnight, diarrhea improved, stop IV fluids, disposition to be decided 07/31: occupational medicine officer presented to the bedside to attempt to fingerprint the patient to identify her. However his machine was not working 08/01:' Per nurse case management note [facility] [employer] has been contacted to help in identifying the patient. On officer is to report to bedside and was instructed to call the nurse case management upon arrival. 08/02/2020 still has diarrhea 08/03/2020 diarrhea improving. Today is the last day of vancomycin 08/04/2020 patient has no diarrhea 08/05: shift supervisor film processing RN reported patient had a seizure overnight, Ativan was ordered however was not administered because according to the dayshift RN he was reported that the patient "did not need the medication because she was not having a seizure at the moment". Patient remained hyponatremic and hypochloremic and after conversing with the nurse patient was not getting her prescribed dose FWF for hyponatremia which was corrected 08/06: Electrolyte imbalance discontinue, patient still catatonic 08/07: Electrolyte imbalances continue, to physician consent for PEG tube obtained and GI consulted 08/08: PEG scheduled for 08/09 08/09: s/p PEG placement with GI, hyperkalemic (potassium 5.2) s/p AK Kayexalate. 08/11; patient is on PEG tube feeding. C. difficile treated and resolved. Patient still in catatonic state. Pending guardianship. 08/12/2020 patient on PEG tube feeding. Guardianship pending. Pending placement. 08/13: no aucte events reported overnight, gaurdenship pending. 08/14/20: quality and futility of care is questionable, patient not following any commands, pupillary reflex noted, neurology and ethics consult placed 08/15: Neurology recommended LP, EEG, CT head and MRI brain with and without contrast which are all pending. 08/16: Physician consult obtained for LP which was completed today. Bilateral lower extremity x-rays noted no metal and a physician consent was obtained for contrast therefore MRI brain pending. EEG still pending. Patient again has hypochloremia and hyponatrema 08/17: status epilepticus noted on EEG, Neurology recommends transfer for continues EEG. 08/19: seizures subsided. No active seizures. Pending placement. 08/20: CXR shows possible PNA, initiated on cefepime and vancomycin 08/21. Discussed with neurologist. Patient needs to be transferred to a tertiary center for continuous EEG monitoring Transfer to [facility] initiated. As per [place], case will be sent to and earliest time for possible transfer will be tomorrow. In the meantime, patient will need intubation and sedation for status as per neurology. Critical care consult placed. Vent orders placed. Anesthesia paged. Patient will be going to the ICU. Transfer order placed. Discussed with anesthesia Dr Hawthorne 6:50 PM and told him why patient needs to be intubated immediately. Apparently, patient transfer orders still in progress and patient still on the floors during his evaluation at bedside. Patient cannot be intubated or while on the floor as per anesthesia MD. Patient is to go to ICU and then intubated. 08/22. Overnight events noted. Patient intubated this AM and started on versed. Discussed with [facility], case is still being reviewed. Called [facility] and was told facility do not have continuous EEG monitoring. She remains on multiple seizure medications. Continue BP medications. Neurology is following closely. 08/23. Patient seen and examined at bedside this morning. Patient has been denied transfer by [facility] as no neuro critical care ICU available. [facility] only accepting patients with acute stroke, gabriel or trauma. Placed a call to [facility] and gave details today. Awaiting callback. Otherwise patient remains sedated. EEG performed yesterday shows significant improvement in status epilepticus. Neurology to review today. 08/24. I discussed with transfer center at [facility] and ne urologist Dr. Trivedi requested that latest EEG be reviewed by teleneurology prior to consideration. As patient seizures have subsided, weaning will be on alternative. Neurology notes reviewed-patient to be maintained on sedation for now until it is safe too wean (needs continuous EEG monitoring for this]. I called back transfer center at [facility] was told there are no beds at this time. Patient noted to have Fever overnight. Also has loose watery stools and procalcitonin is elevated. She has been on antibiotics for 4 days now. Repeat chest x-ray shows no new pneumonia. Due to diarrhea, will DC antibiotics for now. Send stool for C. difficile as she had C. difficile earlier during this admission. We will consult ID if C. difficile is positive. Will maintain on current medications for now 08/25. C diff is positive. Started on PO vancomycin. ID consulted. DCed IV antibiotics. Monitor WBC. Will get abdominal CT if no improvement is noted. [facility] but no beds available today. Neurology recommendations appreciated. Will keep sedatives at same dose. 08/26. Patient needs continuous EEG monitoring. [facility] but still have no beds available. [facility] is not accepting patients except Acute stroke, gabriel and trauma patients. [facility] does not have continuous EEG monitoring. She is still on low dose lorazepam. Discussed with CM to find other hospitals where patient can have the EEG monitoring. In the mean time, patient may need to have titration of sedatives but this may not be possible as per neurology. Neurology not available this weekend to assist. Plan to discuss alternatives with neurology on Thursday. Otherwise, she is still on low dose dopamine and PO vancomycin for recurrent clostridium difficile infection. ID is on board. AM labs not drawn. Labs reordered 08/28: Continues on ventilatory support, awaiting transfer for continouse EEG. 08/29: Will add midodrine and see if we can wean off dobutamin, discussed with [facility], no bed available, will reconsult Neurology for daily Neurology eval. Discussed with Respiratory to see if we can wean off ventiltor - Patient Problems (1) Altered mental state Current Visit: Yes Status: Acute Qualifiers: Altered mental status type: unspecified Qualified Code(s): R41.82 - Altered mental status, unspecified Plan to address problem: Possible continuous seizure. May be exacerbated by underlying infections in the past and/or schizoaffective disorder. (2) DVT prophylaxis Current Visit: Yes Status: Acute (3) Status epilepticus Current Visit: Yes Status: Acute Plan to address problem: Plan to address problem: RN reported seizure activity on on 08/05; Ativan was ordered however was not administered because according to the dayshift RN he was reported that the patient "did not need the medication because she was not having a seizure at the moment". After reviewing nursing notes it is noted that she had reported seizure activity by RN on 08/12 and was given Ativan. Hospitalist was informed No seizure activity reported since Neurology consulted EEG no no status epilepticus Pt is on depakote 1000 mg bid; Keppra 1500 mg bid; vimpat 200 mg iv q12; and now initiated on Fosphentoin (load and maintenance) despite drug-drug interaction on 08/21 per neurology Per neurology: Patient will require transfer to a facility w/ cEEG monitoring for higher level of care as EEG here is intermittently available and intermittently read at present; increase depakote to 1000 mg bid (bolus of 500 mg via peg); increase Keppra to 1500 mg bid; initiate vimpat 200 mg iv q12; s/p Ativan 1 mg IV x 1 dose given; pending MRI Brain w/ wo contrast. Recommend q1 hour neurochecks. 08/19 it was noted that patient's seizure activity subsided therefore was not transferred to tertiary care 08/21 noted to have a focal seizure when neurology was examining the patient, given Ativan x1 and started on a third antiepileptic. Transfer to [facility] reinitiated today. Discussed [facility] neurology - patient will need intubation and sedation. Discussed with anesthesia and armed security professional. Transfer order placed. Vent bundle ordered. -08/22. Patient intubated this AM. Had another episode of seizure early AM as per RN prior to intubation. Neurology currently following. Patient is on Depakote, Keppra, fosphenytoin and Vimpat. -08/23. EEG shows improvement after sedation and intubation. Teleneurology following -08/24 - 08/25. No seizures noted. Still on lorazepam drip. Will order EEG repeat. -08/26. No beds at [facility], [facility]. [facility] has no continuous EEG monitor. [facility] only acceptinig stroke patients. Discussed with CM to see if he can find hospitals that have EEG capability [place]. 08/26/2020 received call from [facility] about reconnecting with transfer service from [facility] [phone]. We will follow-up in a.m. to see if they have a bed for continuous EEG capabilities. Otherwise patient remains unresponsive nonverbal at baseline. Intubated. (4) Schizoaffective disorder Current Visit: Yes Status: Chronic Plan to address problem: Haldol as needed antipsychotic medications. (5) C. difficile diarrhea Current Visit: Yes Status: Resolved Plan to address problem: Continue vancomycin for an additional 4 times a day for total of 10 days. No loose stool today. (6) Rhabdomyolysis Current Visit: Yes Status: Resolved Qualifiers: Rhabdomyolysis type: non-traumatic Qualified Code(s): M62.82 - Rhabdomyolysis Plan to address problem: Resolving with aggressive IV fluid hydration before. (7) Hyponatremia Current Visit: Yes Status: Resolved Plan to address problem: Admit sodium 142 07/31 134, slight hyponatremia at this time no intervention needed, 08/01 Na 136 however she has remained hyponatremic Hydration with free water flush; 50ml q6 hours while hyponatremic-> informed RN on 08/06 08/07 sodium 136 08/09 sodium 135 Trend BMP 08/10 sodium 141 08/15 sodium 134; informed RN FWF are ordered to be 50 mL every 6 while hyponatremic 08/16 sodium 131, nutrition notes reviewed and FWF seems to be changed 100 mL q4 hours 08/17 sodium 134 08/20 hyponatremia resolved 08/27/2020 remains stable. (8) Metabolic encephalopathy Current Visit: Yes Status: Acute Plan to address problem: kim to address problem: Multifactorial , schizoaffective disorder and withdrawal seizures 07/11 CT head Normal nonenhanced CT scan of the brain Patient came from [facility], psych evaluation noted Psych recommends outpt f/u 08/14 neurology consult: Recommends obtaining EEG, LP, CTA head, MRI brain with and without contrast 08/15 CT head shows no acute abnormalities and no changes since 07/11/202008/16: LP under fluoroscopy completed. CSF analysis shows no evidence of encephalitis 08/16 MRI brain with/without contrast pending: Shows no acute abnormalities Supportive care -Now on multiple antiseizure medications. Intubated and sedated. Plan for transfer to [address] [place] [address] initiated (9) Discharge planning issues Current Visit: Yes Status: Acute Plan to address problem: Patient's identity is not confirmed [facility] [employer] Department has been contacted to aid in identification however unsuccessful [facility] Department have been contacted Inpatient records requested from [facility] again on 08/02 Risk-management made aware of patient again on 08/02 Patient identification confirmed with [facility] Department Attempted to contact children, CM has an email address and an email was sent over the weekend however there is been no reply 08/07: 2 physician consent for PEG tube obtained and GI consulted for PEG tube placement 08/09: PEG tube placed, resume tube feeds within 4 hours [facility] in the process of assuming guardianship over the patient for placement 08/14 ethics consulted 08/17 Dr. Nails requested a transfer to another facility for continuous EEG as the patient may be in status epilepticus. Patient seizures reportedly improved and transfer was initiated 08/21 transfer to [facility] initiated today as patient still having seizure epi sodes. -08/23. I discussed with transfer center at [facility] and neurologist Dr. Trivedi requested that latest EEG be reviewed by telemetry neurology. History Interval history: patient seen and examined, remains on full ventilatory support Hospitalist Physical - Physical exam Narrative exam: General appearance: Present: no acute distress, cachectic, other, orally intu bated - EENT ENT: clear oral mucosa, other (Unresponsive) Ears: bilateral: normal - Neck Neck: supple, normal ROM - Respiratory Respiratory effort: normal Respiratory: bilateral: CTA, diminished, rales, rhonchi - Breasts Breasts: normal - Cardiovascular Rhythm: regular Heart Sounds: Present: S1 & S2. Absent: gallop, rub Extremities: pulses intact, No edema, normal color, Full ROM - Gastrointestinal General gastrointestinal: Present: soft, non-tender, non-distended, hypoactive bowel sounds, other (Scaphoid) - Genitourinary Female genitourinary: normal - Integumentary Integumentary: clear, warm, dry - Musculoskeletal Musculoskeletal: other (Debility) - Neurologic Neurologic: unresponsive - Psychiatric Psychiatric: other (Unresponsive) - Constitutional Vitals: Temp Pulse Resp BP Pulse Ox 98.0 F 96 H 20 95/51 100 08/29/20 08:00 08/29/20 13:45 08/29/20 13:45 08/29/20 13:45 08/29/20 13:15 General appearance: Present: no acute distress, cachectic, other HEART Score - HEART Score Risk factors: 1-2 risk factors Troponin: Troponin T < 0.010 ng/mL (0.00-0.029) 07/11/20 21:17 Troponin: < normal limit - Critical Actions Critical Actions: 0-3 pts:0.9-1.7%risk of adverse cardiac event.Candidate for discharge Results - Labs CBC & Chem 7: 08/29/20 22:00 08/29/20 22:00 Labs: Laboratory Last Values WBC 18.7 K/mm3 (4.5-11.0) H 08/29/20 01:57 RBC 2.99 M/mm3 (3.65-5.03) L 08/29/20 01:57 Hgb 9.9 gm/dl (10.1-14.3) L 08/29/20 01:57 Hct 29.1 % (30.3-42.9) L 08/29/20 01:57 MCV 97 fl (79-97) 08/29/20 01:57 MCH 33 pg (28-32) H 08/29/20 01:57 MCHC 34 % (30-34) 08/29/20 01:57 RDW 15.9 % (13.2-15.2) H 08/29/20 01:57 Plt Count 449 K/mm3 (140-440) H 08/29/20 01:57 Lymph % (Auto) 17.0 % (13.4-35.0) 08/29/20 01:57 Nicholas % (Auto) 6.1 % (0.0-7.3) 08/29/20 01:57 Eos % (Auto) 1.1 % (0.0-4.3) 08/29/20 01:57 Baso % (Auto) 0.4 % (0.0-1.8) 08/29/20 01:57 Lymph # (Auto) 3.2 K/mm3 (1.2-5.4) 08/29/20 01:57 Nicholas # (Auto) 1.1 K/mm3 (0.0-0.8) H 08/29/20 01:57 Eos # (Auto) 0.2 K/mm3 (0.0-0.4) 08/29/20 01:57 Baso # (Auto) 0.1 K/mm3 (0.0-0.1) 08/29/20 01:57 Add Manual Diff Complete 08/27/20 03:37 Total Counted 100 08/27/20 03:37 Seg Neutrophils % 75.4 % (40.0-70.0) H 08/29/20 01:57 Seg Neuts % (Manual) 69.0 % (40.0-70.0) 08/27/20 03:37 Band Neutrophils % 5.0 % 08/27/20 03:37 Lymphocytes % (Manual) 14.0 % (13.4-35.0) 08/27/20 03:37 Reactive Lymphs % (Man) 0 % 08/27/20 03:37 Monocytes % (Manual) 6.0 % (0.0-7.3) 08/27/20 03:37 Eosinophils % (Manual) 3.0 % (0.0-4.3) 08/27/20 03:37 Basophils % (Manual) 0 % (0.0-1.8) 08/27/20 03:37 Metamyelocytes % 3.0 % 08/27/20 03:37 Myelocytes % 0 % 08/27/20 03:37 Promyelocytes % 0 % 08/27/20 03:37 Blast Cells % 0 % 08/27/20 03:37 Nucleated RBC % Not Reportable 08/27/20 03:37 Seg Neutrophils # 14.1 K/mm3 (1.8-7.7) H 08/29/20 01:57 Seg Neutrophils # Man 11.7 K/mm3 (1.8-7.7) H 08/27/20 03:37 Band Neutrophils # 0.9 K/mm3 08/27/20 03:37 Lymphocytes # (Manual) 2.4 K/mm3 (1.2-5.4) 08/27/20 03:37 Abs React Lymphs (Man) 0.0 K/mm3 08/27/20 03:37 Monocytes # (Manual) 1.0 K/mm3 (0.0-0.8) H 08/27/20 03:37 Eosinophils # (Manual) 0.5 K/mm3 (0.0-0.4) H 08/27/20 03:37 Basophils # (Manual) 0.0 K/mm3 (0.0-0.1) 08/27/20 03:37 Metamyelocytes # 0.5 K/mm3 08/27/20 03:37 Myelocytes # 0.0 K/mm3 08/27/20 03:37 Promyelocytes # 0.0 K/mm3 08/27/20 03:37 Blast Cells # 0.0 K/mm3 08/27/20 03:37 Pathologist Review 08/26/20 14:58 WBC Morphology Not Reportable 08/27/20 03:37 Hypersegmented Neuts Not Reportable 08/27/20 03:37 Hyposegmented Neuts Not Reportable 08/27/20 03:37 Hypogranular Neuts Not Reportable 08/27/20 03:37 Smudge Cells Not Reportable 08/27/20 03:37 Toxic Granulation Not Reportable 08/27/20 03:37 Toxic Vacuolation Not Reportable 08/27/20 03:37 Dohle Bodies Not Reportable 08/27/20 03:37 Pelger-Huet Anomaly Not Reportable 08/27/20 03:37 Rashad Rods Not Reportable 08/27/20 03:37 Platelet Estimate Consistent w auto 08/27/20 03:37 Clumped Platelets Not Reportable 08/27/20 03:37 Plt Clumps, EDTA Not Reportable 08/27/20 03:37 Large Platelets Not Reportable 08/27/20 03:37 Giant Platelets Not Reportable 08/27/20 03:37 Platelet Satelliting Not Reportable 08/27/20 03:37 Plt Morphology Comment Not Reportable 08/27/20 03:37 RBC Morphology Not Reportable 08/27/20 03:37 Dimorphic RBCs Not Reportable 08/27/20 03:37 Polychromasia Not Reportable 08/27/20 03:37 Hypochromasia Not Reportable 08/27/20 03:37 Poikilocytosis Not Reportable 08/27/20 03:37 Anisocytosis Few 08/27/20 03:37 Microcytosis Not Reportable 08/27/20 03:37 Macrocytosis Not Reportable 08/27/20 03:37 Spherocytes Not Reportable 08/27/20 03:37 Pappenheimer Bodies Not Reportable 08/27/20 03:37 Sickle Cells Not Reportable 08/27/20 03:37 Target Cells Few 08/27/20 03:37 Tear Drop Cells Not Reportable 08/27/20 03:37 Ovalocytes Not Reportable 08/27/20 03:37 Helmet Cells Not Reportable 08/27/20 03:37 [place] Bodies Not Reportable 08/27/20 03:37 Randall Rings Not Reportable 08/27/20 03:37 Diggs Cells Not Reportable 08/27/20 03:37 Bite Cells Not Reportable 08/27/20 03:37 Crenated Cell Not Reportable 08/27/20 03:37 Elliptocytes Not Reportable 08/27/20 03:37 Acanthocytes (Spur) Not Reportable 08/27/20 03:37 Rouleaux Not Reportable 08/27/20 03:37 Hemoglobin C Crystals Not Reportable 08/27/20 03:37 Schistocytes Not Reportable 08/27/20 03:37 Malaria parasites Not Reportable 08/27/20 03:37 Ed Bodies Not Reportable 08/27/20 03:37 Hem Pathologist Commnt No 08/27/20 03:37 PT 12.5 Sec. (12.2-14.9) 08/15/20 15: INR 0.92 (0.87-1.13) 08/15/20 15: APTT 20.4 Sec. (24.2-36.6) L 08/15/20 15:26 ABG pH 7.465 pH Units (7.350-7.450) H 08/29/20 03:43 POC ABG pCO2 28.2 mmHg (32.0-48.0) L 08/25/20 04:19 ABG pCO2 33.4 mm Hg 08/29/20 03:43 POC ABG pO2 88.3 mmHg (83-108) 08/25/20 04:19 ABG pO2 96.3 mm Hg (80.0-90.0) H 08/29/20 03:43 POC ABG HCO3 23.9 08/25/20 04:19 ABG HCO3 23.5 mmol/L (20.0-26.0) 08/29/20 03:43 ABG O2 Saturation 97.7 % (95.0-99.0) 08/29/20 03:43 ABG O2 Content 11.1 (0.0-44) 08/29/20 03:43 POC ABG Base Excess 2.1 08/25/20 04:19 ABG Base Excess 0.0 mmol/L (-2.0-3.0) 08/29/20 03:43 ABG Hemoglobin 8.1 gm/dl (12.0-16.0) L 08/29/20 03:43 ABG Oxyhemoglobin 98.9 (94-98) H 08/22/20 11:18 ABG Carboxyhemoglobin 1.2 % (0.0-5.0) 08/29/20 03:43 ABG Methemoglobin 0.5 % (0.0-1.5) 08/29/20 03:43 ABG Sodium 131.6 mmol/L (136.0-145.0) L 08/25/20 04:19 ABG Potassium 2.9 mmol/L (3.40-4.50) L 08/25/20 04:19 ABG Chloride 104.0 mmol/L (98-107) 08/25/20 04:19 ABG Glucose 120 mg/dL (65-95) H 08/25/20 04:19 Oxyhemoglobin 96.0 % (95.0-99.0) 08/29/20 03:43 Carboxyhemoglobin 0.4 (0.5-1.5) L 08/22/20 11:18 FiO2 30 % 08/29/20 03:43 Sodium 135 mmol/L (137-145) L 08/29/20 01:57 Potassium 4.1 mmol/L (3.6-5.0) 08/29/20 01:57 Chloride 101.1 mmol/L (98-107) 08/29/20 01:57 Carbon Dioxide 21 mmol/L (22-30) L 08/29/20 01:57 Anion Gap 17 mmol/L 08/29/20 01:57 BUN 8 mg/dL (7-17) 08/29/20 01:57 Creatinine < 0.2 mg/dL (0.6-1.2) L 08/29/20 01:57 Estimated GFR > 60 ml/min 08/29/20 01:57 BUN/Creatinine Ratio 40 % 08/29/20 01:57 Glucose 114 mg/dL (65-100) H 08/29/20 01:57 POC Glucose 146 mg/dL (70-105) H 08/29/20 12:12 Lactic Acid 1.50 mmol/L (0.7-2.0) 07/12/20 00:04 Phosphorus 3.10 mg/dL (2.5-4.5) 07/24/20 06:00 Calcium 7.6 mg/dL (8.4-10.2) L 08/29/20 01:57 Direct Bilirubin < 0.2 mg/dL (0-0.2) 07/13/20 09:33 Magnesium 2.30 mg/dL (1.7-2.3) 08/26/20 14:58 Total Bilirubin < 0.20 mg/dL (0.1-1.2) 08/29/20 01:57 Total Creatine Kinase 102 units/L (30-135) 07/17/20 05:21 CK-MB (CK-2) 9.2 ng/mL (0.0-4.0) H 07/12/20 15:13 AST 105 units/L (5-40) H 08/29/20 01:57 ALT 71 units/L (7-56) H 08/29/20 01:57 CK-MB (CK-2) Rel Index 0.4 (0-4) 07/12/20 15:13 Alkaline Phosphatase 74 units/L (35-129) 08/29/20 01:57 Troponin T < 0.010 ng/mL (0.00-0.029) 07/11/20 21:17 Ammonia 50.0 umol/L (25-60) 08/23/20 20:30 Total Protein 5.5 g/dL (6.3-8.2) L 08/29/20 01:57 Albumin 1.9 g/dL (3.9-5) L 08/29/20 01:57 Albumin/Globulin Ratio 0.5 % 08/29/20 01:57 Procalcitonin 2.78 ng/mL (<0.15) 08/22/20 15:30 Arterial Blood Glucose 120 mg/dL (65-95) H 08/25/20 04:19 Arterial Blood Ionized Calcium 4.4 mg/dL (4.6-5.3) L 08/25/20 04:19 Urine Color Yellow (Yellow) 08/22/20 Unknown Urine Turbidity Clear (Clear) 08/22/20 Unknown Urine pH 7.0 (5.0-7.0) 08/22/20 Unknown Ur Specific [place] 1.017 (1.003-1.030) 08/22/20 Unknown Urine Protein <15 mg/dl mg/dL (Negative) 08/22/20 Unknown Urine Glucose (UA) Neg mg/dL (Negative) 08/22/20 Unknown Urine Ketones Tr mg/dL (Negative) 08/22/20 Unknown Urine Blood Neg (Negative) 08/22/20 Unknown Urine Nitrite Neg (Negative) 08/22/20 Unknown Urine Bilirubin Neg (Negative) 08/22/20 Unknown Urine Urobilinogen < 2.0 mg/dL (<2.0) 08/22/20 Unknown Ur Leukocyte Esterase Neg (Negative) 08/22/20 Unknown Urine WBC (Auto) 7.0 /HPF (0.0-6.0) H 08/22/20 Unknown Urine RBC (Auto) 1.0 /HPF (0.0-6.0) 08/22/20 Unknown U Epithel Cells (Auto) 3.0 /HPF (0-13.0) 08/22/20 Unknown Urine Mucus Few /HPF 08/22/20 Unknown CSF Appearance Clear 08/16/20 14:18 CSF Color Colorless 08/16/20 14:18 CSF WBC 6 /mm3 (1-10) 08/16/20 14:18 CSF RBC 4 /mm3 (0-0) 08/16/20 14:18 CSF Seg Neutrophils 0 % (0-6) 08/16/20 14:18 CSF Lymphocytes % 90.0 % (40-80) 08/16/20 14:18 CSF Reactive Lymphs 0 % 08/16/20 14:18 CSF Monocytes % 10.0 % (15-45) 08/16/20 14:18 CSF Eosinophils % 0 % 08/16/20 14:18 CSF Basophils 0 % 08/16/20 14:18 CSF Pathologist Review C 08/16/20 14:18 CSF Glucose 60 mg/dL 08/16/20 14:18 CSF Total Protein 94 mg/dL 08/16/20 14:18 CSF VDRL Nonreactive (Nonreactive) 08/16/20 14:18 Vancomycin Trough 4.0 ug/mL (5.0-20.0) L 08/23/20 20:30 Salicylates < 0.3 mg/dL (2.8-20.0) L 07/11/20 21:17 Urine Opiates Screen Presumptive negative 07/11/20 Unknown Urine Methadone Screen Presumptive negative 07/11/20 Unknown Acetaminophen 5.0 ug/mL (10.0-30.0) L 07/11/20 21:17 Ur Barbiturates Screen Presumptive negative 07/11/20 Unknown Ur Phencyclidine Scrn Presumptive negative 07/11/20 Unknown Phenytoin 9.2 ug/mL (10.0-20.0) L 08/24/20 Unknown Ur Amphetamines Screen Presumptive negative 07/11/20 Unknown Valproic Acid 55.9 ug/mL (50-100) 08/24/20 Unknown U Benzodiazepines Scrn Presumptive negative 07/11/20 Unknown Urine Cocaine Screen Presumptive negative 07/11/20 Unknown U Marijuana (THC) Screen Presumptive negative 07/11/20 Unknown Drugs of Abuse Note Disclamer 07/11/20 Unknown C. difficile Tox (PCR) Positive (Negative) 08/24/20 Unknown Coronavirus (PCR) Negative (Negative) 08/23/20 10:18 Enterovirus (PCR) Cmmt See scanned result 08/16/20 14:18 HSV I DNA PCR See scanned result 08/16/20 14:18 HSV II DNA PCR See scanned result 08/16/20 14:18 VZV (Qnt-PCR) See scanned result 08/16/20 14:18 Ledesma/IV: Voiding Method Indwelling Catheter IV Catheter Type [Right Upper PICC Line arm] IV Catheter Type [Right INT / Saline Lock Antecubital] IV Catheter Type [Left Forearm INT / Saline Lock ] IV Catheter Type [Right Hand] INT / Saline Lock IV Catheter Type [Right INT / Saline Lock Forearm] IV Catheter Type [Left Hand] INT / Saline Lock Active Medications - Current Medications Current Medications: Generic Name Dose Route Start Last Admin Trade Name Freq PRN Reason Stop Dose Admin Acetaminophen 650 mg 08/24/20 09:00 08/24/20 15:06 Tylenol PO 650 mg Q4H PRN Administration TEMP > 101 Lipase/Protease/Amylase 1 each 07/22/20 07:44 08/14/20 10:25 Pancreaze 10,500 Unit FEEDTUBE 1 each PRN PRN Administration For Clogged Feeding Tube Haloperidol Lactate 5 mg 07/18/20 13:15 07/21/20 22:06 Haldol IM 5 mg Q6H PRN Administration Agitation Heparin Sodium (Porcine) 5,000 unit 07/12/20 10:00 08/29/20 10:29 Heparin SUB-Q 5,000 unit Q8H KEITH Administration Hydrophilic Ointment 1 applic 08/21/20 18:21 Vaseline Lip Therapy TP Q2HR PRN Dry Lips Propofol 1,000 mg in 100 mls @ 1.524 mls/hr 08/21/20 20:00 Diprivan 10 Mg/Ml IV TITR KEITH Protocol 5 MCG/KG/MIN Dopamine HCl/Dextrose 800 mg in 250 mls @ 1.905 mls/hr 08/22/20 05:00 08/29/20 08:07 Intropin Drip 800 Mg/D5w 250 Ml IV 6 mcg/kg/min TITR KEITH 5.715 mls/hr Administration Protocol 2 MCG/KG/MIN Phenytoin 100 mg/ Sodium 102 mls @ 408 mls/hr 08/22/20 10:00 08/29/20 05:08 Chloride IV 408 mls/hr Q8HR KEITH Administration Lorazepam 100 mg/ Sodium 100 mls @ 1 mls/hr 08/22/20 12:00 08/25/20 15:57 Chloride/ Miscellaneous IV 1 mg/hr Information TITR KEITH 1 mls/hr Administration Protocol 1 MG/HR Sodium Chloride 1,000 mls @ 75 mls/hr 08/26/20 08:30 08/29/20 10:45 Nacl 0.9% 1000 Ml IV 75 mls/hr DIRECT KEITH Administration Metronidazole 500 mg in 100 mls @ 100 mls/hr 08/26/20 12:00 08/29/20 12:26 Flagyl 500 Mg/100 Ml IV 09/05/20 04:59 100 mls/hr Q8H KEITH Administration Protocol Insulin Human Regular 0 unit 07/23/20 09:00 08/29/20 12:28 Humulin R SUB-Q Not Given Q6HR KEITH Protocol Lacosamide 200 mg 08/21/20 22:00 08/29/20 12:27 Vimpat PO 200 mg Q12HR KETIH Administration Lansoprazole 30 mg 08/26/20 10:00 08/29/20 10:30 Prevacid Solutab FEEDTUBE 30 mg QDAY KEITH Administration Levetiracetam 1,500 mg 08/21/20 22:00 08/29/20 10:29 Keppra PO 1,500 mg BID KEITH Administration Lorazepam 2 mg 08/06/20 05:05 08/22/20 08:05 Ativan IV 2 mg Q4H PRN Administration Agitation Lorazepam 2 mg 08/22/20 11:10 08/22/20 11:18 Ativan IV 2 mg Q10MIN PRN Administration Agitation Megestrol Acetate 400 mg 07/22/20 10:00 08/29/20 10:29 Megestrol PO 400 mg QDAY KEITH Administration Midodrine 10 mg 08/29/20 14:00 Proamatine PO TID KEITH Multi-Ingred Cream/Lotion/Oil/Oint 1 applic 08/22/20 11:10 Artificial Tears Ophth Oint OU Q4HR PRN Dry Eye(s) Olanzapine 2.5 mg 07/25/20 22:00 08/28/20 21:46 Zyprexa PO 2.5 mg QHS KEITH Administration Ondansetron HCl 4 mg 07/12/20 01:06 Zofran IV Q8H PRN Nausea And Vomiting Simple Syrup 15 ml 07/22/20 07:44 Simple Syrup FEEDTUBE PRN PRN Hypoglycemia Simple Syrup 30 ml 07/22/20 07:44 Simple Syrup FEEDTUBE PRN PRN Hypoglycemia Sodium Bicarbonate 325 mg 07/22/20 07:44 Sodium Bicarbonate FEEDTUBE PRN PRN For Clogged Feeding Tube Valproic Acid 1,000 mg 08/18/20 22:00 08/29/20 10:29 Depakene Liq FEEDTUBE 1,000 mg Q12HR KEITH Administration Vancomycin HCl 500 mg 08/26/20 12:00 08/29/20 12:27 Vancomycin Po PO 09/05/20 06:01 500 mg Q6HR KEITH Administration Nutrition/Malnutrition Assess - Dietary Evaluation Nutrition/Malnutrition Findings: Nutrition Notes Start: 07/12/20 11:40 Freq: Status: Active Protocol: Document 08/24/20 11:45 AL (Rec: 08/24/20 11:57 AL [email or web address]) Co-Sign 08/24/20 11:45 MK Nutrition Notes Initial or Follow up Reassessment Other Pertinent Diagnosis C. diff (+), AMS, Rhabdomyolysis, dehydration, Hx of stroke Current Diet Nepro 1.8 at 30 ml/hr Labs/Tests Reviewed Pertinent Medications Reviewed Height 5 ft Weight 52 kg [place] Body Weight (kg) 45.45 BMI 22.4 Weight Status Appropriate Subjective/Other Information Pt tube feed is running at goal rate. K labs dropped low and pt was given KCl via IVF. K labs now WNL. Will switch pt back to Osmolite as a result Percent of energy/protein needs met: 100%/75% Burn Absent Trauma Absent GI Symptoms None Current % PO Negligible Minimum of two criteria No Energy Intake (severe) < or equal to 50% Estimated Energy Requirement > or equal to 5 days #1 Nutrition Diagnosis Inadequate oral intake Diagnosis Progress(for reassessment Continues documentation) Is patient on ventilator? Yes Is Patient Ambulatory and/or Out of Bed No REE-([facility]-confined to bed) 1213.032 Calculation Used for Recommendations [facility] Additional Notes Protein Needs 70-105 g/day (1. 2-2 g/kg) Fluid Needs: 1ml/kcal Nutrition Intervention Change Diet Order: Change TF to Osmolite 1.5 Nutrition Support: Osmolite 1.5 at 35 ml/hr. For Hyponatremia, flush 50 ml q4h Once resolved, flush 100 ml q4h Kcal 1,260 Protein (gm) 53 Fluid (mL) 640 Goal #1 New TF tolerance Goal #2 Meet at least 75% of total energy and protein needs via TF Anticipated Discharge Needs: Recommend Jevity 1.2 bolus 5 cans/day: Breakfast 2 cans ( 474ml), Lunch 2 cans (474ml), Dinner 1 can (237ml) with flush 100ml before and after bolus. [ End ] Follow-Up By: 08/28/20 Additional Comments FU for TF tolerance, intakes, and labs.
[2020-08-29] MEDS: MIDODRINE 5 MG TAB PO SCH ×2 (14:25→20:35)
[2020-08-29] MEDS: LORazepam 100 MG in SODIUM CHLORIDE 0.9% 50 ML, EMPTY BAG 0 ML IV SCH (21:52)
[2020-08-29 22:17] LABS: Hemoglobin 9.9 gm/dl (10.1-14.3); Mean Corpuscular HGB Conc 34 % (30-34); Mean Corpuscular Volume 96 fl (79-97); Platelet Count 490 K/mm3 (140-440); Red Blood Count 3.02 M/mm3 (3.65-5.03); Red Cell Distribution Width 15.9 % (13.2-15.2)
[2020-08-29 22:33] LABS: Blood Urea Nitrogen 7 mg/dL (7-17); Calcium 7.2 mg/dL (8.4-10.2); Hemolysis Index 7
[2020-08-29 22:34] LABS: BUN/Creatinine Ratio 35
[2020-08-30] MEDS: VANCOMYCIN 250 MG/10 ML ORAL LIQD PO SCH ×4 (00:39→17:11)
[2020-08-30] MEDS: INSULIN REGULAR, HUMAN 100 UNIT/ML 3ML VIAL SUB-Q SCH ×4 (00:40→18:22)
[2020-08-30] MEDS: HEPARIN 5,000 UNIT/1 ML VIAL SUB-Q SCH ×3 (01:05→17:11)
[2020-08-30] MEDS: SODIUM CHLORIDE 0.9% 1000 ML 1,000 ML IV SCH ×2 (02:00→17:12)
[2020-08-30] MEDS: metroNIDAZOLE/NS 500 MG/100 ML 500 MG/100 ML BAG IV SCH ×3 (03:29→20:58)
[2020-08-30] MEDS: PHENYTOIN 100 MG in SODIUM CHLORIDE 0.9% 100 ML IV SCH ×3 (05:12→22:26)
--- NOTE | 2020-08-30 08:21 | Progress Note ---
Assessment and Plan Cultures: Blood culture on 07/11/2020 no growth Urine culture on 07/11/2020 no growth CSF culture 08/16/2020 no growth Tracheal aspirate date 08/22/2020 usual respiratory adarsh Assessment: 60 years old female with a schizoaffective disorder admitted on 07/11/2020 due to altered mental status/confusion and poor p.o. intake found to have intractable seizures within a prolonged hospital stay with intractable seizures rhabdomyolysis, C. difficile colitis on 07/20/2020, catatonia, poor p.o. intake, recent pneumonia, now with: #Sepsis with septic shock: Not present on admission with fever, tachycardia, hypotension, remains dopamine; source C. difficile colitis/recurrent #Acute respiratory failure: Intubated for airway protection. #Recurrent C. difficile colitis: Initial C. difficile colitis on 07/20/2020 treated with vancomycin from 07/20/2020 until 08/03/2020. Patient then received cefepime and vancomycin IV for pneumonia on 08/20/2020. KUB normal. #Pneumonia: Treated with cefepime and vancomycin. #Intractable seizures: Per neurology #Schizo affective disorder with catatonia: Per psych #Electrolytes imbalance: Per primary team. Recommendations: -Continue vancomycin p.o. 500 g 4 times daily total 10 days -Continue metronidazole 500 mg every 8 hours -Obtain CT abdomen today-ordered nursing staff requested to sign consent as part of 2 physicians approach since no family can be reached. Consent signed. -Obtain procalcitonin Guarded prognosis Will follow. Gloria Sinclair MD Infectious Diseases Financial Project Manager [facility] [phone] O [phone] Subjective Date of service: 08/30/20 Principal diagnosis: C diff status epilepticus Interval history: Patient remains on dopamine drip, no fever, intubated. Objective - Exam Narrative Exam: General appearance: On the ventilator Eyes: anicteric sclerae, moist conjunctivae; no lid-lag; PERRLA HENT: Atraumatic; oropharynx limited minimal diarrhea endotracheal tube Lungs: CTA CV: RRR no murmur Abdomen: Soft, non-tender Extremities: no edema, no cyanosis Skin: No rash. Psych: Intubated no agitated Neuro: Unresponsive. Rectal tube minimal diarrhea - Constitutional Vitals: Vital Signs Temp Pulse Resp BP Pulse Ox 98.0 F 88 20 117/60 99 08/30/20 08:00 08/30/20 08:00 08/30/20 08:00 08/30/20 08:00 08/30/20 08:00 Temperature -Last 24 Hours Temperature 98.0 F Temperature 98.7 F Temperature 98.9 F Temperature 98.8 F Temperature 98.9 F Temperature 98.7 F - Labs CBC & Chem 7: 08/29/20 22:00 08/29/20 22:00 Labs: Abnormal lab results 08/26/20 08/29/20 08/29/20 Range/Units 14:58 12:12 17:46 WBC 26.2 H (4.5-11.0) K/mm3 RBC (3.65-5.03) M/mm3 Hgb (10.1-14.3) gm/dl Hct (30.3-42.9) % MCH (28-32) pg RDW (13.2-15.2) % Plt Count (140-440) K/mm3 Carbon Dioxide (22-30) mmol/L Creatinine (0.6-1.2) mg/dL Glucose (65-100) mg/dL POC Glucose 146 H 134 H (70-105) mg/dL Calcium (8.4-10.2) mg/dL 08/29/20 08/29/20 08/30/20 Range/Units 22:00 22:00 00:47 WBC 17.0 H (4.5-11.0) K/mm3 RBC 3.02 L (3.65-5.03) M/mm3 Hgb 9.9 L (10.1-14.3) gm/dl Hct 29.0 L (30.3-42.9) % MCH 33 H (28-32) pg RDW 15.9 H (13.2-15.2) % Plt Count 490 H (140-440) K/mm3 Carbon Dioxide 21 L (22-30) mmol/L Creatinine < 0.2 L (0.6-1.2) mg/dL Glucose 116 H (65-100) mg/dL POC Glucose 140 H (70-105) mg/dL Calcium 7.2 L (8.4-10.2) mg/dL 08/30/20 Range/Units 05:34 WBC (4.5-11.0) K/mm3 RBC (3.65-5.03) M/mm3 Hgb (10.1-14.3) gm/dl Hct (30.3-42.9) % MCH (28-32) pg RDW (13.2-15.2) % Plt Count (140-440) K/mm3 Carbon Dioxide (22-30) mmol/L Creatinine (0.6-1.2) mg/dL Glucose (65-100) mg/dL POC Glucose 123 H (70-105) mg/dL Calcium (8.4-10.2) mg/dL
--- NOTE | 2020-08-30 08:22 | Progress Note ---
Assessment and Plan Assessment and plan: 1-year-old female patient with schizoaffective disorder with active hallucinations and confusion presented from [facility] for altered mental status and poor intake on 07/13. She was found to have rhabdomyolysis and electrolyte imbalances. She then developed C. difficile diarrhea and she has completed her regimen of p.o. vancomycin from 07/20-08/03. RN stated patient had to liquid bowel movements today however patient is on vancomycin. Per policy if patient has the decreased BMs she was not a C. difficile sample. At the time of my exam this afternoon the patient was in her usual state with no focal seizure activity noted. However this evening when neurology examined her she was noted to have another seizure and was given Ativan IV. Antiepileptic medications adjusted. Dr. Nails spoke to Dr. Taylor about need to transfer for continuous EEG. He also recommended every hour neurochecks and intubation. Stat ABG ordered. 07/13; patient's CK levels trending down on 1678, continue IV hydration patient is more alert at times, hallucinating, Noncommunicative, severe hypokalemia, replace per protocol 07/14; potassium level significantly improved today to 3.2, replenish per protocol. CK levels trending down 828, continue IV hydration, monitor electrolytes 07/15; patient refused potassium yesterday today potassium levels again 2.7 We will add KCl to IV fluids, and IV K riders, monitor electrolytes. CK level 425. Refusing to eat confused noncommunicative. Possible inpatient psych admission when medically stable 07/16; rhabdomyolysis resolved, mild electrolyte imbalances, if corrected medical ly stable for inpatient psych placement 07/17: replete K and phosphate. repeat CBc BMP tomorrow. White count needs to be < 10 for inpt psych admission 07/18: cont to have mildly elevated white count, c/o loose stool. will check for C. def - start flagyl and cipro 07/19: White count normal today. change medications to Po. medically stable to go for inpt psych unit. 07/20; positive for C. def. patient not eating properly, refusing meds time to time. Psych now recommended outpt f/u. CM working on placement. Patient remains nonverbal, does not follow any commend and not giving any personal info. 07/21; K 2.0 today, cont to replete, follow BMP, patient remains nonverbal and not cooperative. refuses to eat and meds. cont d51/2NS. if condition doesnot improve will consider TF 07/22: Potassium level persistently remains low, magnesium 1.6 today. Will replete magnesium and potassium. Patient refusing meds and not eating at all per RN report. Totally noncooperative during the encounternot respond to any question. Keeps her eye closing and covering her face with her forearm. Will order for tube feeding and Dobbhoff tube. Continue to follow. We will also add Megace to boost appetite. 07/23: started on TF, follow BMP, change iv fluid to 1/2 NS. patient remains nonverbal 07/24; clinically unchanged, replete K, iv fluid and TF. reconsult psych as patient remains in catatonic phase 07/25: psych recommendation noted, continue tube feeding, continue to replete electrolytes as needed, follow BMP. I strongly believe her severe electrolytes derangement and encephalopathy related to her catatonia, poor oral intake other than any underlying medical conditions. There is no family contact in file, no home address available, patient appeared to be unfunded. regional branch manager working on placement. 07/26: psych recommendation noted, continue tube feeding, continue to replete electrolytes as needed, follow BMP. I strongly believe her severe electrolytes derangement and encephalopathy related to her catatonia, poor oral intake other than any underlying medical conditions. There is no family contact in file, no home address available, patient appeared to be unfunded. regional branch manager working on placement. 07/27; continue with tube feeding. There is no family contact in file, no home address available, patient appeared to be unfunded. Case management is following. 07/28; patient still on tube feeding, patient is noncommunicative. I believe her condition is related to her catatonia. Psych is following her. Currently her electrolytes are corrected. There is no family contact in file, no home address available, patient appeared to be unfunded. Case management is following. 07/29 patient is nonverbal, eyes open does not follow simple commands,, still having low-grade fever T-max 100 degrees,, lab results reviewed discussed with RN- still has loose stools, disease case manager rn notes reviewed, unable to contact family 07/30 no acute events overnight, diarrhea improved, stop IV fluids, disposition to be decided 07/31: chief revenue officer presented to the bedside to attempt to fingerprint the patient to identify her. However his machine was not working 08/01:' Per disease case manager rn note [facility] [employer] has been contacted to help in identifying the patient. On officer is to report to bedside and was instructed to call the disease case manager rn upon arrival. 08/02/2020 still has diarrhea 08/03/2020 diarrhea improving. Today is the last day of vancomycin 08/04/2020 patient has no diarrhea 08/05: sales representative trainee RN reported patient had a seizure overnight, Ativan was ordered however was not administered because according to the dayshift RN he was reported that the patient "did not need the medication because she was not having a seizure at the moment". Patient remained hyponatremic and hypochloremic and after conversing with the nurse patient was not getting her prescribed dose FWF for hyponatremia which was corrected 08/06: Electrolyte imbalance discontinue, patient still catatonic 08/07: Electrolyte imbalances continue, to physician consent for PEG tube obtained and GI consulted 08/08: PEG scheduled for 08/09 08/09: s/p PEG placement with GI, hyperkalemic (potassium 5.2) s/p FL Kayexalate. 08/11; patient is on PEG tube feeding. C. difficile treated and resolved. Patient still in catatonic state. Pending guardianship. 08/12/2020 patient on PEG tube feeding. Guardianship pending. Pending placement. 08/13: no aucte events reported overnight, gaurdenship pending. 08/14/20: quality and futility of care is questionable, patient not following any commands, pupillary reflex noted, neurology and ethics consult placed 08/15: Neurology recommended LP, EEG, CT head and MRI brain with and without contrast which are all pending. 08/16: Physician consult obtained for LP which was completed today. Bilateral lower extremity x-rays noted no metal and a physician consent was obtained for contrast therefore MRI brain pending. EEG still pending. Patient again has hypochloremia and hyponatrema 08/17: status epilepticus noted on EEG, Neurology recommends transfer for continues EEG. 08/19: seizures subsided. No active seizures. Pending placement. 08/20: CXR shows possible PNA, initiated on cefepime and vancomycin 08/21. Discussed with neurologist. Patient needs to be transferred to a tertiary center for continuous EEG monitoring Transfer to [facility] initiated. As per [facility], case will be sent to and earliest time for possible transfer will be tomorrow. In the meantime, patient will need intubation and sedation for status as per neurology. Critical care consult placed. Vent orders placed. Anesthesia paged. Patient will be going to the ICU. Transfer order placed. Discussed with anesthesia Dr Hawthorne 6:50 PM and told him why patient needs to be intubated immediately. Apparently, patient transfer orders still in progress and patient still on the floors during his evaluation at bedside. Patient cannot be intubated or while on the floor as per anesthesia MD. Patient is to go to ICU and then intubated. 08/21 transfer to [facility] initiated today as patient still having seizure episodes. -08/23. I discussed with transfer center at [facility] and neurologist Dr. Trivedi requested that latest EEG be reviewed by telemetry neurology. 08/22. Overnight events noted. Patient intubated this AM and started on versed. Discussed with [facility], case is still being reviewed. Called [facility] and was told facility do not have continuous EEG monitoring. She remains on multiple seizure medications. Continue BP medications. Neurology is following closely. 08/23. Patient seen and examined at bedside this morning. Patient has been denied transfer by [facility] as no neuro critical care ICU available. [facility] only accepting patients with acute stroke, gabriel or trauma. Placed a call to [facility] and gave details today. Awaiting callback. Otherwise patient remains sedated. EEG performed yesterday shows significant improvement in status epilepticus. Neurology to review today. 08/24. I discussed with transfer center at [facility] and neurologist Dr. Trivedi requested that latest EEG be reviewed by teleneurology prior to consideration. As patient seizures have subsided, weaning will be on a lternative. Neurology notes reviewed-patient to be maintained on sedation for now until it is safe too wean (needs continuous EEG monitoring for this]. I called back transfer center at [facility] was told there are no beds at this time. Patient noted to have Fever overnight. Also has loose watery stools and procalcitonin is elevated. She has been on antibiotics for 4 days now. Repeat chest x-ray shows no new pneumonia. Due to diarrhea, will DC antibiotics for now. Send stool for C. difficile as she had C. difficile earlier during this admission. We will consult ID if C. difficile is positive. Will maintain on current medications for now 08/25. C diff is positive. Started on PO vancomycin. ID consulted. DCed IV antibiotics. Monitor WBC. Will get abdominal CT if no improvement is noted. Called [facility] and [facility] but no beds available today. Neurology recommendations appreciated. Will keep sedatives at same dose. 08/26. Patient needs continuous EEG monitoring. Called [facility] and [facility] but still have no beds available. [facility] is not accepting patients except Acute stroke, gabriel and trauma patients. [facility] does not have contin uous EEG monitoring. She is still on low dose lorazepam. Discussed with CM to find other hospitals where patient can have the EEG monitoring. In the mean time, patient may need to have titration of sedatives but this may not be possible as per neurology. Neurology not available this to assist. Plan to discuss alternatives with neurology on Thursday. Otherwise, she is still on low dose dopamine and PO vancomycin for recurrent clostridium difficile infection. ID is on board. AM labs not drawn. Labs reordered 08/28: Continues on ventilatory support, awaiting transfer for continouse EEG. 08/29: Will add midodrine and see if we can wean off dobutamin, discussed with [facility], no bed available, will reconsult Neurology for daily Neurology eval. Discussed with Respiratory to see if we can wean off ventilator 08/30: Reconsulting Neurology, discussed with Nursings staff to wean off dobutamin since midodrine has been started and MAP this am is 70. Also wean Ativan. Awaiting Ethics committee. Await bed availablity for transfer to more advanced facility as this patient will benefit from a more specalized care. - Patient Problems (1) Altered mental state Current Visit: Yes Status: Acute Qualifiers: Altered mental status type: unspecified Qualified Code(s): R41.82 - Altered mental status, unspecified Plan to address problem: Possible continuous seizure. May be exacerbated by underlying infections in the past and/or schizoaffective disorder. (2) DVT prophylaxis Current Visit: Yes Status: Acute (3) Status epilepticus Current Visit: Yes Status: Acute Plan to address problem: Plan to address problem: RN reported seizure activity on on 08/05; Ativan was ordered however was not administered because according to the dayshift RN he was reported that the patient "did not need the medication because she was not having a seizure at the moment". After reviewing nursing notes it is noted that she had reported seizure activity by RN on 08/12 and was given Ativan. Hospitalist was informed No seizure activity reported since Neurology consulted EEG no no status epilepticus Pt is on depakote 1000 mg bid; Keppra 1500 mg bid; vimpat 200 mg iv q12; and now initiated on Fosphentoin (load and maintenance) despite drug-drug interaction on 08/21 per neurology Per neurology: Patient will require transfer to a facility w/ cEEG monitoring for higher level of care as EEG here is intermittently available and i ntermittently read at present; increase depakote to 1000 mg bid (bolus of 500 mg via peg); increase Keppra to 1500 mg bid; initiate vimpat 200 mg iv q12; s/p Ativan 1 mg IV x 1 dose given; pending MRI Brain w/ wo contrast. Recommend q1 hour neurochecks. 08/19 it was noted that patient's seizure activity subsided therefore was not transferred to tertiary care 08/21 noted to have a focal seizure when neurology was examining the patient, given Ativan x1 and started on a third antiepileptic. Transfer to [facility] reinitiated today. Discussed wt neurology - patient will need intubation and sedation. Discussed with anesthesia and director of corporate sponsorships. Transfer order placed. Vent bundle ordered. -08/22. Patient intubated this AM. Had another episode of seizure early AM as per RN prior to intubation. Neurology currently following. Patient is on Depakote, Keppra, fosphenytoin and Vimpat. -08/23. EEG shows improvement after sedation and intubation. Teleneurology following -08/24 - 08/25. No seizures noted. Still on lorazepam drip. Will order EEG repeat. -08/26. No beds at [facility]. [facility] has no continuous EEG monitor. [facility] only acceptinig stroke patients. Discussed with CM to see if he can find hospitals that have EEG capability here in [place]. 08/26/2020 received call from [facility] about reconnecting with transfer service from [facility] [phone]. We will follow-up in a.m. to see if they have a bed for continuous EEG capabilities. Otherwise patient remains unresponsive nonverbal at baseline. Intubated. (4) Schizoaffective disorder Current Visit: Yes Status: Chronic Plan to address problem: Haldol as needed antipsychotic medications. (5) C. difficile diarrhea Current Visit: Yes Status: Resolved Plan to address problem: Continue vancomycin for an additional 4 times a day for total of 10 days. No loose stool today. (6) Rhabdomyolysis Current Visit: Yes Status: Resolved Qualifiers: Rhabdomyolysis type: non-traumatic Qualified Code(s): M62.82 - Rhabdomyolysis Plan to address problem: Resolving with aggressive IV fluid hydration before. (7) Hyponatremia Current Visit: Yes Status: Resolved Plan to address problem: Admit sodium 142 07/31 134, slight hyponatremia at this time no intervention needed, 08/01 Na 136 however she has remained hyponatremic Hydration with free water flush; 50ml q6 hours while hyponatremic-> informed RN on 08/06 08/07 sodium 136 08/09 sodium 135 Trend BMP 08/10 sodium 141 08/15 sodium 134; informed RN FWF are ordered to be 50 mL every 6 while hyponatremic 08/16 sodium 131, nutrition notes reviewed and FWF seems to be changed 100 mL q4 hours 08/17 sodium 134 08/20 hyponatremia resolved 08/27/2020 remains stable. (8) Metabolic encephalopathy Current Visit: Yes Status: Acute Plan to address problem: kim to address problem: Multifactorial , schizoaffective disorder and withdrawal seizures 07/11 CT head Normal nonenhanced CT scan of the brain Patient came from center, psych evaluation noted Psych recommends outpt f/u 08/14 neurology consult: Recommends obtaining EEG, LP, CTA head, MRI brain with and without contrast 08/15 CT head shows no acute abnormalities and no changes since 07/11/202008/16: LP under fluoroscopy completed. CSF analysis shows no evidence of encephalitis 08/16 MRI brain with/without contrast pending: Shows no acute abnormalities Supportive care -Now on multiple antiseizure medications. Intubated and sedated. Plan for transfer to [address] [place] [address] initiated (9) Discharge planning issues Current Visit: Yes Status: Acute Plan to address problem: Patient's identity is not confirmed [facility] Department has been contacted to aid in identification however unsuccessful [facility] Department have been contacted Inpatient records requested from [facility] again on 08/02 Risk-management made aware of patient again on 08/02 Patient identification confirmed with [facility] Department Attempted to contact children, ERMIAS has an email address and an email was sent over the weekend however there is been no reply 08/07: 2 physician consent for PEG tube obtained and GI consulted for PEG tube placement 08/09: PEG tube placed, resume tube feeds within 4 hours [facility] in the process of assuming guardianship over the patient for placement 08/14 ethics consulted 08/17 Dr. Nails requested a transfer to another facility for continuous EEG as the patient The high probability of a clinically significant, sudden or life threatening deterioration of the [RESPIRATORY, NEUROLOGY] system(s) required my full and direct attention, intervention and personal management. The aggregate critical care time was [35] minutes. This time is in addition to time spent performing reported procedures but includes the following: [X] Data Review and interpretation [X] Patient assessment and monitoring of vital signs [X] Documentation [X] Medication orders and management may be in status epilepticus. Patient seizures reportedly improved and transfer was initiated History Interval history: patient seen and examined, remains on full ventilatory support Hospitalist Physical - Physical exam Narrative exam: General appearance: Present: no acute distress, cachectic, other, orally intubated - EENT ENT: clear oral mucosa, other (Unresponsive) Ears: bilateral: normal - Neck Neck: supple, normal ROM - Respiratory Respiratory effort: normal Respiratory: bilateral: CTA, diminished, rales, rhonchi - Breasts Breasts: normal - Cardiovascular Rhythm: regular Heart Sounds: Present: S1 & S2. Absent: gallop, rub Extremities: pulses intact, No edema, normal color, Full ROM - Gastrointestinal General gastrointestinal: Present: soft, non-tender, non-distended, hypoactive bowel sounds, other (Scaphoid) - Genitourinary Female genitourinary: normal - Integumentary Integumentary: clear, warm, dry - Musculoskeletal Musculoskeletal: other (Debility) - Neurologic Neurologic: unresponsive - Psychiatric Psychiatric: other (Unresponsive) - Constitutional Vitals: Temp Pulse Resp BP Pulse Ox 98.0 F 88 20 117/60 99 08/30/20 08:00 08/30/20 08:00 08/30/20 08:00 08/30/20 08:00 08/30/20 08:00 General appearance: Present: no acute distress, cachectic, other HEART Score - HEART Score Risk factors: 1-2 risk factors Troponin: Troponin T < 0.010 ng/mL (0.00-0.029) 07/11/20 21:17 Troponin: < normal limit - Critical Actions Critical Actions: 0-3 pts:0.9-1.7%risk of adverse cardiac event.Candidate for discharge Results - Labs CBC & Chem 7: 08/29/20 22:00 08/29/20 22:00 Labs: Laboratory Last Values WBC 17.0 K/mm3 (4.5-11.0) H 08/29/20 22:00 RBC 3.02 M/mm3 (3.65-5.03) L 08/29/20 22:00 Hgb 9.9 gm/dl (10.1-14.3) L 08/29/20 22:00 Hct 29.0 % (30.3-42.9) L 08/29/20 22:00 MCV 96 fl (79-97) 08/29/20 22:00 MCH 33 pg (28-32) H 08/29/20 22:00 MCHC 34 % (30-34) 08/29/20 22:00 RDW 15.9 % (13.2-15.2) H 08/29/20 22:00 Plt Count 490 K/mm3 (140-440) H 08/29/20 22:00 Lymph % (Auto) 17.0 % (13.4-35.0) 08/29/20 01:57 [place] % (Auto) 6.1 % (0.0-7.3) 08/29/20 01:57 Eos % (Auto) 1.1 % (0.0-4.3) 08/29/20 01:57 Baso % (Auto) 0.4 % (0.0-1.8) 08/29/20 01:57 Lymph # (Auto) 3.2 K/mm3 (1.2-5.4) 08/29/20 01:57 [place] # (Auto) 1.1 K/mm3 (0.0-0.8) H 08/29/20 01:57 Eos # (Auto) 0.2 K/mm3 (0.0-0.4) 08/29/20 01:57 Baso # (Auto) 0.1 K/mm3 (0.0-0.1) 08/29/20 01:57 Add Manual Diff Complete 08/27/20 03:37 Total Counted 100 08/27/20 03:37 Seg Neutrophils % 75.4 % (40.0-70.0) H 08/29/20 01:57 Seg Neuts % (Manual) 69.0 % (40.0-70.0) 08/27/20 03:37 Band Neutrophils % 5.0 % 08/27/20 03:37 Lymphocytes % (Manual) 14.0 % (13.4-35.0) 08/27/20 03:37 Reactive Lymphs % (Man) 0 % 08/27/20 03:37 Monocytes % (Manual) 6.0 % (0.0-7.3) 08/27/20 03:37 Eosinophils % (Manual) 3.0 % (0.0-4.3) 08/27/20 03:37 Basophils % (Manual) 0 % (0.0-1.8) 08/27/20 03:37 Metamyelocytes % 3.0 % 08/27/20 03:37 Myelocytes % 0 % 08/27/20 03:37 Promyelocytes % 0 % 08/27/20 03:37 Blast Cells % 0 % 08/27/20 03:37 Nucleated RBC % Not Reportable 08/27/20 03:37 Seg Neutrophils # 14.1 K/mm3 (1.8-7.7) H 08/29/20 01:57 Seg Neutrophils # Man 11.7 K/mm3 (1.8-7.7) H 08/27/20 03:37 Band Neutrophils # 0.9 K/mm3 08/27/20 03:37 Lymphocytes # (Manual) 2.4 K/mm3 (1.2-5.4) 08/27/20 03:37 Abs React Lymphs (Man) 0.0 K/mm3 08/27/20 03:37 Monocytes # (Manual) 1.0 K/mm3 (0.0-0.8) H 08/27/20 03:37 Eosinophils # (Manual) 0.5 K/mm3 (0.0-0.4) H 08/27/20 03:37 Basophils # (Manual) 0.0 K/mm3 (0.0-0.1) 08/27/20 03:37 Metamyelocytes # 0.5 K/mm3 08/27/20 03:37 Myelocytes # 0.0 K/mm3 08/27/20 03:37 Promyelocytes # 0.0 K/mm3 08/27/20 03:37 Blast Cells # 0.0 K/mm3 08/27/20 03:37 Pathologist Review 08/26/20 14:58 WBC Morphology Not Reportable 08/27/20 03:37 Hypersegmented Neuts Not Reportable 08/27/20 03:37 Hyposegmented Neuts Not Reportable 08/27/20 03:37 Hypogranular Neuts Not Reportable 08/27/20 03:37 Smudge Cells Not Reportable 08/27/20 03:37 Toxic Granulation Not Reportable 08/27/20 03:37 Toxic Vacuolation Not Reportable 08/27/20 03:37 Dohle Bodies Not Reportable 08/27/20 03:37 Pelger-Huet Anomaly Not Reportable 08/27/20 03:37 Rashad Rods Not Reportable 08/27/20 03:37 Platelet Estimate Consistent w auto 08/27/20 03:37 Clumped Platelets Not Reportable 08/27/20 03:37 Plt Clumps, EDTA Not Reportable 08/27/20 03:37 Large Platelets Not Reportable 08/27/20 03:37 Giant Platelets Not Reportable 08/27/20 03:37 Platelet Satelliting Not Reportable 08/27/20 03:37 Plt Morphology Comment Not Reportable 08/27/20 03:37 RBC Morphology Not Reportable 08/27/20 03:37 Dimorphic RBCs Not Reportable 08/27/20 03:37 Polychromasia Not Reportable 08/27/20 03:37 Hypochromasia Not Reportable 08/27/20 03:37 Poikilocytosis Not Reportable 08/27/20 03:37 Anisocytosis Few 08/27/20 03:37 Microcytosis Not Reportable 08/27/20 03:37 Macrocytosis Not Reportable 08/27/20 03:37 Spherocytes Not Reportable 08/27/20 03:37 Pappenheimer Bodies Not Reportable 08/27/20 03:37 Sickle Cells Not Reportable 08/27/20 03:37 Target Cells Few 08/27/20 03:37 Tear Drop Cells Not Reportable 08/27/20 03:37 Ovalocytes Not Reportable 08/27/20 03:37 Helmet Cells Not Reportable 08/27/20 03:37 Farrell-[place] Bodies Not Reportable 08/27/20 03:37 [place] Rings Not Reportable 08/27/20 03:37 Ketan Cells Not Reportable 08/27/20 03:37 Bite Cells Not Reportable 08/27/20 03:37 Crenated Cell Not Reportable 08/27/20 03:37 Elliptocytes Not Reportable 08/27/20 03:37 Acanthocytes (Spur) Not Reportable 08/27/20 03:37 Rouleaux Not Reportable 08/27/20 03:37 Hemoglobin C Crystals Not Reportable 08/27/20 03:37 Schistocytes Not Reportable 08/27/20 03:37 Malaria parasites Not Reportable 08/27/20 03:37 Ed Bodies Not Reportable 08/27/20 03:37 Hem Pathologist Commnt No 08/27/20 03:37 PT 12.5 Sec. (12.2-14.9) 08/15/20 15:26 INR 0.92 (0.87-1.13) 08/15/20 15:26 APTT 20.4 Sec. (24.2-36.6) L 08/15/20 15:26 ABG pH 7.465 pH Units (7.350-7.450) H 08/29/20 03:43 POC ABG pCO2 28.2 mmHg (32.0-48.0) L 08/25/20 04:19 ABG pCO2 33.4 mm Hg 08/29/20 03:43 POC ABG pO2 88.3 mmHg (83-108) 08/25/20 04:19 ABG pO2 96.3 mm Hg (80.0-90.0) H 08/29/20 03:43 POC ABG HCO3 23.9 08/25/20 04:19 ABG HCO3 23.5 mmol/L (20.0-26.0) 08/29/20 03:43 ABG O2 Saturation 97.7 % (95.0-99.0) 08/29/20 03:43 ABG O2 Content 11.1 (0.0-44) 08/29/20 03:43 POC ABG Base Excess 2.1 08/25/20 04:19 ABG Base Excess 0.0 mmol/L (-2.0-3.0) 08/29/20 03:43 ABG Hemoglobin 8.1 gm/dl (12.0-16.0) L 08/29/20 03:43 ABG Oxyhemoglobin 98.9 (94-98) H 08/22/20 11:18 ABG Carboxyhemoglobin 1.2 % (0.0-5.0) 08/29/20 03:43 ABG Methemoglobin 0.5 % (0.0-1.5) 08/29/20 03:43 ABG Sodium 131.6 mmol/L (136.0-145.0) L 08/25/20 04:19 ABG Potassium 2.9 mmol/L (3.40-4.50) L 08/25/20 04:19 ABG Chloride 104.0 mmol/L (98-107) 08/25/20 04:19 ABG Glucose 120 mg/dL (65-95) H 08/25/20 04:19 Oxyhemoglobin 96.0 % (95.0-99.0) 08/29/20 03:43 Carboxyhemoglobin 0.4 (0.5-1.5) L 08/22/20 11:18 FiO2 30 % 08/29/20 03:43 Sodium 137 mmol/L (137-145) 08/29/20 22:00 Potassium 4.1 mmol/L (3.6-5.0) 08/29/20 22:00 Chloride 101.0 mmol/L (98-107) 08/29/20 22:00 Carbon Dioxide 21 mmol/L (22-30) L 08/29/20 22:00 Anion Gap 19 mmol/L 08/29/20 22:00 BUN 7 mg/dL (7-17) 08/29/20 22:00 Creatinine < 0.2 mg/dL (0.6-1.2) L 08/29/20 22:00 Estimated GFR > 60 ml/min 08/29/20 22:00 BUN/Creatinine Ratio 35 % 08/29/20 22:00 Glucose 116 mg/dL (65-100) H 08/29/20 22:00 POC Glucose 123 mg/dL (70-105) H 08/30/20 05:34 Lactic Acid 1.50 mmol/L (0.7-2.0) 07/12/20 00:04 Phosphorus 3.10 mg/dL (2.5-4.5) 07/24/20 06:00 Calcium 7.2 mg/dL (8.4-10.2) L 08/29/20 22:00 Direct Bilirubin < 0.2 mg/dL (0-0.2) 07/13/20 09:33 Magnesium 2.30 mg/dL (1.7-2.3) 08/26/20 14:58 Total Bilirubin < 0.20 mg/dL (0.1-1.2) 08/29/20 01:57 Total Creatine Kinase 102 units/L (30-135) 07/17/20 05:21 CK-MB (CK-2) 9.2 ng/mL (0.0-4.0) H 07/12/20 15:13 AST 105 units/L (5-40) H 08/29/20 01:57 ALT 71 units/L (7-56) H 08/29/20 01:57 CK-MB (CK-2) Rel Index 0.4 (0-4) 07/12/20 15:13 Alkaline Phosphatase 74 units/L (35-129) 08/29/20 01:57 Troponin T < 0.010 ng/mL (0.00-0.029) 07/11/20 21:17 Ammonia 50.0 umol/L (25-60) 08/23/20 20:30 Total Protein 5.5 g/dL (6.3-8.2) L 08/29/20 01:57 Albumin 1.9 g/dL (3.9-5) L 08/29/20 01:57 Albumin/Globulin Ratio 0.5 % 08/29/20 01:57 Procalcitonin 2.78 ng/mL (<0.15) 08/22/20 15:30 Arterial Blood Glucose 120 mg/dL (65-95) H 08/25/20 04:19 Arterial Blood Ionized Calcium 4.4 mg/dL (4.6-5.3) L 08/25/20 04:19 Urine Color Yellow (Yellow) 08/22/20 Unknown Urine Turbidity Clear (Clear) 08/22/20 Unknown Urine pH 7.0 (5.0-7.0) 08/22/20 Unknown Ur Specific [place] 1.017 (1.003-1.030) 08/22/20 Unknown Urine Protein <15 mg/dl mg/dL (Negative) 08/22/20 Unknown Urine Glucose (UA) Neg mg/dL (Negative) 08/22/20 Unknown Urine Ketones Tr mg/dL (Negative) 08/22/20 Unknown Urine Blood Neg (Negative) 08/22/20 Unknown Urine Nitrite Neg (Negative) 08/22/20 Unknown Urine Bilirubin Neg (Negative) 08/22/20 Unknown Urine Urobilinogen < 2.0 mg/dL (<2.0) 08/22/20 Unknown Ur Leukocyte Esterase Neg (Negative) 08/22/20 Unknown Urine WBC (Auto) 7.0 /HPF (0.0-6.0) H 08/22/20 Unknown Urine RBC (Auto) 1.0 /HPF (0.0-6.0) 08/22/20 Unknown U Epithel Cells (Auto) 3.0 /HPF (0-13.0) 08/22/20 Unknown Urine Mucus Few /HPF 08/22/20 Unknown CSF Appearance Clear 08/16/20 14:18 CSF Color Colorless 08/16/20 14:18 CSF WBC 6 /mm3 (1-10) 08/16/20 14:18 CSF RBC 4 /mm3 (0-0) 08/16/20 14:18 CSF Seg Neutrophils 0 % (0-6) 08/16/20 14:18 CSF Lymphocytes % 90.0 % (40-80) 08/16/20 14:18 CSF Reactive Lymphs 0 % 08/16/20 14:18 CSF Monocytes % 10.0 % (15-45) 08/16/20 14:18 CSF Eosinophils % 0 % 08/16/20 14:18 CSF Basophils 0 % 08/16/20 14:18 CSF Pathologist Review C 08/16/20 14:18 CSF Glucose 60 mg/dL 08/16/20 14:18 CSF Total Protein 94 mg/dL 08/16/20 14:18 CSF VDRL Nonreactive (Nonreactive) 08/16/20 14:18 Vancomycin Trough 4.0 ug/mL (5.0-20.0) L 08/23/20 20:30 Salicylates < 0.3 mg/dL (2.8-20.0) L 07/11/20 21:17 Urine Opiates Screen Presumptive negative 07/11/20 Unknown Urine Methadone Screen Presumptive negative 07/11/20 Unknown Acetaminophen 5.0 ug/mL (10.0-30.0) L 07/11/20 21:17 Ur Barbiturates Screen Presumptive negative 07/11/20 Unknown Ur Phencyclidine Scrn Presumptive negative 07/11/20 Unknown Phenytoin 9.2 ug/mL (10.0-20.0) L 08/24/20 Unknown Ur Amphetamines Screen Presumptive negative 07/11/20 Unknown Valproic Acid 55.9 ug/mL (50-100) 08/24/20 Unknown U Benzodiazepines Scrn Presumptive negative 07/11/20 Unknown Urine Cocaine Screen Presumptive negative 07/11/20 Unknown U Marijuana (THC) Screen Presumptive negative 07/11/20 Unknown Drugs of Abuse Note Disclamer 07/11/20 Unknown C. difficile Tox (PCR) Positive (Negative) 08/24/20 Unknown Coronavirus (PCR) Negative (Negative) 08/23/20 10:18 Enterovirus (PCR) Cmmt See scanned result 08/16/20 14:18 HSV I DNA PCR See scanned result 08/16/20 14:18 HSV II DNA PCR See scanned result 08/16/20 14:18 VZV (Qnt-PCR) See scanned result 08/16/20 14:18 Ledesma/IV: Voiding Method Indwelling Catheter IV Catheter Type [Right Upper PICC Line arm] IV Catheter Type [Right INT / Saline Lock Antecubital] IV Catheter Type [Left Forearm INT / Saline Lock ] IV Catheter Type [Right Hand] INT / Saline Lock IV Catheter Type [Right INT / Saline Lock Forearm] IV Catheter Type [Left Hand] INT / Saline Lock Active Medications - Current Medications Current Medications: Generic Name Dose Route Start Last Admin Trade Name Freq PRN Reason Stop Dose Admin Acetaminophen 650 mg 08/24/20 09:00 08/24/20 15:06 Tylenol PO 650 mg Q4H PRN Administration TEMP > 101 Lipase/Protease/Amylase 1 each 07/22/20 07:44 08/14/20 10:[address] 10,500 Unit FEEDTUBE 1 each PRN PRN Administration For Clogged Feeding Tube Haloperidol Lactate 5 mg 07/18/20 13:15 07/21/20 22:06 Haldol IM 5 mg Q6H PRN Administration Agitation Heparin Sodium (Porcine) 5,000 unit 07/12/20 10:00 08/30/20 01:05 Heparin SUB-Q 5,000 unit Q8H KEITH Administration Hydrophilic Ointment 1 applic 08/21/20 18:21 Vaseline Lip Therapy TP Q2HR PRN Dry Lips Propofol 1,000 mg in 100 mls @ 1.524 mls/hr 08/21/20 20:00 Diprivan 10 Mg/Ml IV TITR KEITH Protocol 5 MCG/KG/MIN Dopamine HCl/Dextrose 800 mg in 250 mls @ 1.905 mls/hr 08/22/20 05:00 08/29/20 08:07 Intropin Drip 800 Mg/D5w 250 Ml IV 6 mcg/kg/min TITR KEITH 5.715 mls/hr Administration Protocol 2 MCG/KG/MIN Phenytoin 100 mg/ Sodium 102 mls @ 408 mls/hr 08/22/20 10:00 08/30/20 05:12 Chloride IV 408 mls/hr Q8HR KEITH Administration Lorazepam 100 mg/ Sodium 100 mls @ 1 mls/hr 08/22/20 12:00 08/29/20 21:52 Chloride/ Miscellaneous IV 1 mg/hr Information TITR KEITH 1 mls/hr Administration Protocol 1 MG/HR Sodium Chloride 1,000 mls @ 75 mls/hr 08/26/20 08:30 08/30/20 02:00 Nacl 0.9% 1000 Ml IV 75 mls/hr DIRECT KEITH Administration Metronidazole 500 mg in 100 mls @ 100 mls/hr 08/26/20 12:00 08/30/20 03:29 Flagyl 500 Mg/100 Ml IV 09/05/20 04:59 100 mls/hr Q8H KEITH Administration Protocol Insulin Human Regular 0 unit 07/23/20 09:00 08/30/20 00:40 Humulin R SUB-Q Not Given Q6HR KEITH Protocol Lacosamide 200 mg 08/21/20 22:00 08/29/20 22:04 Vimpat PO 200 mg Q12HR KEITH Administration Lansoprazole 30 mg 08/26/20 10:00 08/29/20 10:30 Prevacid Solutab FEEDTUBE 30 mg QDAY KEITH Administration Levetiracetam 1,500 mg 08/21/20 22:00 08/29/20 22:03 Keppra PO 1,500 mg BID KEITH Administration Lorazepam 2 mg 08/06/20 05:05 08/22/20 08:05 Ativan IV 2 mg Q4H PRN Administration Agitation Lorazepam 2 mg 08/22/20 11:10 08/22/20 11:18 Ativan IV 2 mg Q10MIN PRN Administration Agitation Megestrol Acetate 400 mg 07/22/20 10:00 08/29/20 10:29 Megestrol PO 400 mg QDAY KEITH Administration Midodrine 10 mg 08/29/20 14:00 08/29/20 20:35 Proamatine PO 10 mg TID KEITH Administration Multi-Ingred Cream/Lotion/Oil/Oint 1 applic 08/22/20 11:10 Artificial Tears Ophth Oint OU Q4HR PRN Dry Eye(s) Olanzapine 2.5 mg 07/25/20 22:00 08/29/20 22:04 Zyprexa PO 2.5 mg QHS KEITH Administration Ondansetron HCl 4 mg 07/12/20 01:06 Zofran IV Q8H PRN Nausea And Vomiting Simple Syrup 15 ml 07/22/20 07:44 Simple Syrup FEEDTUBE PRN PRN Hypoglycemia Simple Syrup 30 ml 07/22/20 07:44 Simple Syrup FEEDTUBE PRN PRN Hypoglycemia Sodium Bicarbonate 325 mg 07/22/20 07:44 Sodium Bicarbonate FEEDTUBE PRN PRN For Clogged Feeding Tube Valproic Acid 1,000 mg 08/18/20 22:00 08/29/20 22:04 Depakene Liq FEEDTUBE 1,000 mg Q12HR KEITH Administration Vancomycin HCl 500 mg 08/26/20 12:00 08/30/20 05:12 Vancomycin Po PO 09/05/20 06:01 500 mg Q6HR KEITH Administration Nutrition/Malnutrition Assess - Dietary Evaluation Nutrition/Malnutrition Findings: Nutrition Notes Start: 07/12/20 11:40 Freq: Status: Active Protocol: Document 08/29/20 14:46 AL (Rec: 08/29/20 14:54 AL [email or web address]) Co-Sign 08/29/20 14:46 MK Nutrition Notes Initial or Follow up Reassessment Other Pertinent Diagnosis C. diff (+), AMS, Rhabdomyolysis, dehydration, Hx of stroke Current Diet Osmolite 1.5 at 35 ml/hr (goal rate) Labs/Tests Na 135 Pertinent Medications Reviewed Height 5 ft Weight 59.2 kg [place] Body Weight (kg) 45.45 BMI 25.4 Weight change and time frame Wt change noted Weight Status Overweight Subjective/Other Information TF running at goal rate. Percent of energy/protein needs met: 100%/75% Burn Absent Trauma Absent GI Symptoms None Current % PO Negligible Minimum of two criteria No Energy Intake (severe) < or equal to 50% Estimated Energy Requirement > or equal to 5 days #1 Nutrition Diagnosis Inadequate oral intake Diagnosis Progress(for reassessment Continues documentation) Is patient on ventilator? Yes Is Patient Ambulatory and/or Out of Bed No REE-([facility]-confined to bed) [phone] Calculation Used for Recommendations [facility] Additional Notes Protein Needs 70-105 g/day (1. 2-2 g/kg) Fluid Needs: 1ml/kcal Nutrition Intervention Change Diet Order: Continue TF Nutrition Support: Osmolite 1.5 at 35 ml/hr. For Hyponatremia, flush 50 ml q4h Once resolved, flush 100 ml q4h [ End ] Kcal 1,260 Protein (gm) 53 Fluid (mL) 640 Goal #1 TF tolerance Goal #2 Meet at least 75% of total energy and protein needs via TF Anticipated Discharge Needs: Recommend Jevity 1.2 bolus 5 cans/day: Breakfast 2 cans ( 474ml), Lunch 2 cans (474ml), Dinner 1 can (237ml) with flush 100ml before and after bolus. Follow-Up By: 09/04/20 Additional Comments FU for TF tolerance and labs
[2020-08-30] MEDS: MIDODRINE 5 MG TAB PO SCH ×3 (08:47→20:57)
[2020-08-30] MEDS: MEGESTROL 400 MG/10 ML ORAL LIQD PO SCH (09:03)
[2020-08-30] MEDS: LACOSAMIDE 100 MG TAB PO SCH ×2 (09:03→21:18)
[2020-08-30] MEDS: VALPROIC ACID 250 MG/5 ML ORAL LIQD FEEDTUBE SCH ×2 (09:03→21:18)
[2020-08-30] MEDS: levETIRAcetam 500 MG/5 ML ORAL LIQD PO SCH ×2 (09:03→21:18)
[2020-08-30] MEDS: LANSOPRAZOLE 30 MG SOLUTAB FEEDTUBE SCH (09:07)
[2020-08-30 10:30] LABS: Alanine Aminotransferase 64 units/L (7-56); Blood Urea Nitrogen 6 mg/dL (7-17); Calcium 7.2 mg/dL (8.4-10.2); Hemolysis Index 9
[2020-08-30 10:32] LABS: BUN/Creatinine Ratio 30
--- NOTE | 2020-08-30 13:03 | Cat Scan Report ---
CT ABDOMEN AND PELVIS WITH CONTRAST HISTORY: C. Difficile colitis worsening, septic COMPARISON: None. TECHNIQUE: Axial CT images were obtained through the abdomen and pelvis after 100 cc of Omnipaque 300 intravenously. Sagittal and coronal reformatted images. All CT scans at this location are performed using CT dose reduction for ALARA by means of automated exposure control. FINDINGS: CT ABDOMEN: Lung Bases: Left lower lobe atelectasis. Partial atelectasis of the right lower lobe. Trace left pleu ral effusion. Liver: No significant abnormality. Biliary: No significant abnormality. Spleen: The spleen is small in size. Pancreas: No significant abnormality. Adrenals: No significant abnormality. Kidneys: No significant abnormality. Lymphatics: No lymphadenopathy. Vasculature: No significant abnormality. Bowel/Peritoneum: A peg tube terminates in the distal stomach. There is no evidence for bowel obstruc tion or focal bowel wall thickening. There is a mild degree of fluid in the colon which could represe nt an enteritis. A rectal tube is in place. Normal appendix. CT PELVIS: : No significant abnormality. The bladder is decompressed with a Ledesma catheter. Osseous Structures: Mild degenerative changes in the lumbar spine. No acute osseous abnormality. Additional Findings: None IMPRESSION: There is a mild degree of fluid in the colon which could represent gastroenteritis. No obstruction, p neumatosis or bowel wall thickening. Bibasilar atelectatic changes and small left pleural effusion. Signer Name: Corbin Manley Jr, MD Signed: 08/30/2020 12:58 PM Workstation Name: [id number]
[2020-08-30] MEDS ORDERED: PHENYTOIN 100 MG/2 ML VIAL IV ONE (16:26)
--- NOTE | 2020-08-30 16:58 | Progress Note ---
Assessment and Plan - Patient Problems (1) Encephalopathy Current Visit: Yes Status: Acute Plan to address problem: Plan: 1) Likely from status post status epilepticus. Patient's Dilantin level was 9.2 on(08/24/2020)valproic acid level was 55.9. She had an MRI of the brain done in the past which did not show any acute changes. 2) Continue current critical care treatment as per primary team. (2) Altered mental state Current Visit: Yes Status: Acute Qualifiers: Altered mental status type: unspecified Qualified Code(s): R41.82 - Altered mental status, unspecified (3) Seizure Current Visit: Yes Status: Acute Plan to address problem: Plan 1) Patient's EEG is still abnormal and it shows left anterior temporal region epileptiform type activities with burst suppression pattern and delta slowing. This indicates patient is still having seizures that originates from left temporal region. Since her Dilantin level was sub-therapeutic I would give her additional 500 mg of fosphenytoin sodium in IV piggyback now. Continue current dose of Dilantin 100 mg 3 times a day as prescribed. 2) Patient needs repeat EEG tomorrow. 3) Patient needs to be evaluated and treated at the higher center with the help of continuous EEG monitoring to see/develop burst suppression pattern for 24 hours and then gradually reduce the dose of either Ativan or Versed or propofol and then see if her seizure focus has been suppressed. Patient is critical at this point and time. 4) Please ran a Dilantin trough level tomorrow morning to keep the level between 10 and 20. 5) Prognosis is guarded at this point in time since her last EEG did show continuous seizure/epileptiform type activities despite being on Vimpat, Keppra, Depakote, Dilantin, and on IV Ativan drip. I discussed at length with the patient's nurse at the bedside. Thank you very much for allowing us in the care of your patient. Please call us if you have any questions. Sunni Fontaine MD Tele-neurologist [phone] Subjective Date of service: 08/30/20 Principal diagnosis: C diff status epilepticus Interval history: S: Patient is seen and examined. She is still intubated and sedated with IV Ativan. She had an EEG which did show epileptiform type activities in the left anterior temporal region with some burst suppression pattern as well as delta slowing.( please see complete report is in the chart) Patient does not follow any commands. She is full code and according to nurse there is no relative or family members at the bedside. In fact she does not have any of them. Objective - Exam Narrative Exam: Limited examination. Patient is intubated, does not follow any commands on IV sedation. Pupils are reactive to light on the right side but does not react to the left side. Face is symmetrical Other cranial nerves are difficult to examine Motor: Flat both upper and both lower extremities Sensory: Does not withdraw to painful stimuli Babinski: Flat. - Vital Sign Vital Signs - 12hr 08/30/20 08/30/20 08/30/20 05:00 05:15 05:30 Temperature Pulse Rate 93 H 87 89 Pulse Rate [ From Monitor] Respiratory 20 20 21 Rate Blood Pressure 100/54 105/55 98/54 O2 Sat by Pulse 99 99 Oximetry 08/30/20 08/30/20 08/30/20 05:45 06:00 06:15 Temperature Pulse Rate 90 85 89 Pulse Rate [ From Monitor] Respiratory 20 20 20 Rate Blood Pressure 95/53 103/56 108/58 O2 Sat by Pulse 99 97 Oximetry 08/30/20 08/30/20 08/30/20 06:30 06:45 07:00 Temperature Pulse Rate 87 89 86 Pulse Rate [ From Monitor] Respiratory 20 21 21 Rate Blood Pressure 104/56 100/55 105/60 O2 Sat by Pulse 99 Oximetry 08/30/20 08/30/20 08/30/20 07:15 07:30 07:45 Temperature Pulse Rate 86 89 88 Pulse Rate [ From Monitor] Respiratory 20 20 20 Rate Blood Pressure 108/61 96/52 106/56 O2 Sat by Pulse 99 98 99 Oximetry 08/30/20 08/30/20 08/30/20 08:00 08:15 08:30 Temperature 98.0 F Pulse Rate 88 89 90 Pulse Rate [ 90 From Monitor] Respiratory 20 20 20 Rate Blood Pressure 117/60 111/61 110/61 O2 Sat by Pulse 99 98 99 Oximetry 08/30/20 08/30/20 08/30/20 08:45 09:00 09:15 Temperature Pulse Rate 93 H 93 H 90 Pulse Rate [ From Monitor] Respiratory 20 26 H 20 Rate Blood Pressure 98/50 105/53 111/62 O2 Sat by Pulse 98 99 99 Oximetry 08/30/20 08/30/20 08/30/20 09:24 09:30 09:45 Temperature Pulse Rate 92 H 89 92 H Pulse Rate [ From Monitor] Respiratory 20 20 Rate Blood Pressure 111/62 125/69 108/60 O2 Sat by Pulse 100 100 99 Oximetry 08/30/20 08/30/20 08/30/20 10:00 10:15 10:30 Temperature Pulse Rate 88 85 88 Pulse Rate [ From Monitor] Respiratory 20 20 20 Rate Blood Pressure 110/63 117/62 104/60 O2 Sat by Pulse 100 100 97 Oximetry 08/30/20 08/30/20 08/30/20 10:45 11:00 11:15 Temperature Pulse Rate 88 88 87 Pulse Rate [ From Monitor] Respiratory 20 20 20 Rate Blood Pressure 109/57 109/57 115/64 O2 Sat by Pulse 99 100 96 Oximetry 08/30/20 08/30/20 08/30/20 11:30 12:00 12:16 Temperature Pulse Rate 88 97 H 97 H Pulse Rate [ 97 H From Monitor] Respiratory 20 20 20 Rate Blood Pressure 112/55 126/73 100/61 O2 Sat by Pulse 95 99 100 Oximetry 08/30/20 08/30/20 08/30/20 12:30 12:45 13:00 Temperature Pulse Rate 97 H 96 H 93 H Pulse Rate [ From Monitor] Respiratory 20 20 20 Rate Blood Pressure 102/62 92/57 97/56 O2 Sat by Pulse 100 100 100 Oximetry 08/30/20 08/30/20 08/30/20 13:15 13:30 13:45 Temperature Pulse Rate 93 H 91 H 98 H Pulse Rate [ From Monitor] Respiratory 20 20 20 Rate Blood Pressure 103/58 103/61 101/65 O2 Sat by Pulse 100 100 100 Oximetry 08/30/20 08/30/20 08/30/20 14:00 14:15 14:30 Temperature Pulse Rate 92 H 84 78 Pulse Rate [ From Monitor] Respiratory 20 20 20 Rate Blood Pressure 114/69 114/67 128/72 O2 Sat by Pulse 100 99 Oximetry 08/30/20 08/30/20 08/30/20 14:45 15:00 15:15 Temperature Pulse Rate 78 81 82 Pulse Rate [ From Monitor] Respiratory 20 23 21 Rate Blood Pressure 126/73 125/69 123/68 O2 Sat by Pulse 100 97 Oximetry 08/30/20 08/30/20 08/30/20 15:30 15:45 16:00 Temperature Pulse Rate 87 90 91 H Pulse Rate [ 92 H From Monitor] Respiratory 22 24 19 Rate Blood Pressure 114/61 101/62 104/64 O2 Sat by Pulse 96 87 97 Oximetry 08/30/20 08/30/20 16:15 16:30 Temperature Pulse Rate 93 H 91 H Pulse Rate [ From Monitor] Respiratory 24 24 Rate Blood Pressure 101/62 100/63 O2 Sat by Pulse 97 99 Oximetry - Laboratory Findings CBC and BMP: 08/29/20 22:00 08/30/20 09:50 Abnormal Lab Findings: Abnormal Labs 07/11/20 07/11/20 07/11/20 21:17 21:17 21:17 WBC 11.7 H Hgb 14.4 H RBC Hct MCH 35 H MCHC 36 H MCV RDW Plt Count [place] % (Auto) Lymph % (Auto) [place] # [place] # (Auto) Seg Neutrophils % 72.1 H Seg Neutrophils # 8.5 H Seg Neuts % (Manual) Lymphocytes % (Manual) Seg Neutrophils # Man Lymphocytes # (Manual) Monocytes # (Manual) Eosinophils # (Manual) PT INR APTT ABG pH POC ABG pCO2 POC ABG pO2 ABG pO2 ABG HCO3 ABG Base Excess ABG Hemoglobin ABG Oxyhemoglobin ABG Sodium ABG Potassium ABG Glucose Oxyhemoglobin Carboxyhemoglobin Sodium Potassium 3.5 L Chloride Carbon Dioxide BUN 20 H Creatinine 0.5 L Glucose 122 H POC Glucose Calcium Phosphorus Magnesium AST 86 H ALT 68 H Total Creatine Kinase 1998 H CK-MB (CK-2) Total Protein Albumin Arterial Blood Glucose Arterial Blood Ionized Calcium Urine WBC (Auto) Vancomycin Trough Salicylates < 0.3 L Acetaminophen Valproic Acid Phenytoin 07/11/20 07/12/20 07/12/20 21:17 06:26 15:13 WBC Hgb RBC Hct MCH MCHC MCV RDW Plt Count [place] % (Auto) Lymph % (Auto) [place] # [place] # (Auto) Seg Neutrophils % Seg Neutrophils # Seg Neuts % (Manual) Lymphocytes % (Manual) Seg Neutrophils # Man Lymphocytes # (Manual) Monocytes # (Manual) Eosinophils # (Manual) PT INR APTT ABG pH POC ABG pCO2 POC ABG pO2 ABG pO2 ABG HCO3 ABG Base Excess ABG Hemoglobin ABG Oxyhemoglobin ABG Sodium ABG Potassium ABG Glucose Oxyhemoglobin Carboxyhemoglobin Sodium Potassium Chloride Carbon Dioxide BUN Creatinine Glucose POC Glucose Calcium Phosphorus Magnesium AST ALT Total Creatine Kinase 1888 H 1852 H CK-MB (CK-2) 14.8 H 9.2 H Total Protein Albumin Arterial Blood Glucose Arterial Blood Ionized Calcium Urine WBC (Auto) Vancomycin Trough Salicylates Acetaminophen 5.0 L Valproic Acid Phenytoin 07/13/20 07/13/20 07/14/20 09:33 09:33 01:52 WBC Hgb RBC Hct MCH MCHC MCV RDW Plt Count [place] % (Auto) Lymph % (Auto) [place] # [place] # (Auto) Seg Neutrophils % Seg Neutrophils # Seg Neuts % (Manual) Lymphocytes % (Manual) Seg Neutrophils # Man Lymphocytes # (Manual) Monocytes # (Manual) Eosinophils # (Manual) PT INR APTT ABG pH POC ABG pCO2 POC ABG pO2 ABG pO2 ABG HCO3 ABG Base Excess ABG Hemoglobin ABG Oxyhemoglobin ABG Sodium ABG Potassium ABG Glucose Oxyhemoglobin Carboxyhemoglobin Sodium Potassium 2.8 L* 3.2 L Chloride 107.9 H Carbon Dioxide BUN Creatinine 0.3 L Glucose POC Glucose Calcium 7.9 L D Phosphorus Magnesium AST 83 H ALT Total Creatine Kinase 1678 H CK-MB (CK-2) Total Protein 5.3 L D Albumin 3.0 L Arterial Blood Glucose Arterial Blood Ionized Calcium Urine WBC (Auto) Vancomycin Trough Salicylates Acetaminophen Valproic Acid Phenytoin 07/14/20 07/15/20 07/16/20 15:48 05:55 08:26 WBC Hgb RBC Hct MCH MCHC MCV RDW Plt Count [place] % (Auto) Lymph % (Auto) [place] # [place] # (Auto) Seg Neutrophils % Seg Neutrophils # Seg Neuts % (Manual) Lymphocytes % (Manual) Seg Neutrophils # Man Lymphocytes # (Manual) Monocytes # (Manual) Eosinophils # (Manual) PT INR APTT ABG pH POC ABG pCO2 POC ABG pO2 ABG pO2 ABG HCO3 ABG Base Excess ABG Hemoglobin ABG Oxyhemoglobin ABG Sodium ABG Potassium ABG Glucose Oxyhemoglobin Carboxyhemoglobin Sodium Potassium 2.7 L* 3.1 L Chloride 108.0 H Carbon Dioxide 16 L D 14 L BUN 4 L Creatinine 0.3 L 0.3 L Glucose POC Glucose Calcium 8.3 L Phosphorus 2.40 L Magnesium AST ALT Total Creatine Kinase 828 H 425 H 188 H CK-MB (CK-2) Total Protein Albumin Arterial Blood Glucose Arterial Blood Ionized Calcium Urine WBC (Auto) Vancomycin Trough Salicylates Acetaminophen Valproic Acid Phenytoin 07/17/20 07/17/20 07/18/20 05:21 05:21 05:53 WBC 12.1 H 11.6 H Hgb RBC Hct MCH MCHC MCV RDW Plt Count [place] % (Auto) 7.9 H Lymph % (Auto) [place] # 0.9 H [place] # (Auto) Seg Neutrophils % 70.7 H Seg Neutrophils # 8.2 H Seg Neuts % (Manual) Lymphocytes % (Manual) Seg Neutrophils # Man Lymphocytes # (Manual) Monocytes # (Manual) Eosinophils # (Manual) PT INR APTT ABG pH POC ABG pCO2 POC ABG pO2 ABG pO2 ABG HCO3 ABG Base Excess ABG Hemoglobin ABG Oxyhemoglobin ABG Sodium ABG Potassium ABG Glucose Oxyhemoglobin Carboxyhemoglobin Sodium Potassium 3.2 L Chloride Carbon Dioxide BUN Creatinine Glucose POC Glucose Calcium Phosphorus 2.40 L Magnesium AST ALT Total Creatine Kinase CK-MB (CK-2) Total Protein Albumin Arterial Blood Glucose Arterial Blood Ionized Calcium Urine WBC (Auto) Vancomycin Trough Salicylates Acetaminophen Valproic Acid Phenytoin 07/18/20 07/19/20 07/19/20 05:53 08:12 08:12 WBC Hgb RBC Hct MCH 33 H MCHC 35 H MCV RDW Plt Count [place] % (Auto) Lymph % (Auto) [place] # [place] # (Auto) Seg Neutrophils % Seg Neutrophils # Seg Neuts % (Manual) Lymphocytes % (Manual) Seg Neutrophils # Man Lymphocytes # (Manual) Monocytes # (Manual) Eosinophils # (Manual) PT INR APTT ABG pH POC ABG pCO2 POC ABG pO2 ABG pO2 ABG HCO3 ABG Base Excess ABG Hemoglobin ABG Oxyhemoglobin ABG Sodium ABG Potassium ABG Glucose Oxyhemoglobin Carboxyhemoglobin Sodium Potassium Chloride 108.3 H Carbon Dioxide 17 L BUN 5 L Creatinine 0.3 L Glucose POC Glucose Calcium 8.3 L Phosphorus 2.30 L Magnesium AST ALT Total Creatine Kinase CK-MB (CK-2) Total Protein Albumin Arterial Blood Glucose Arterial Blood Ionized Calcium Urine WBC (Auto) Vancomycin Trough Salicylates Acetaminophen Valproic Acid 7.7 L Phenytoin 09/07/22/20 07/23/20 06:35 06:59 07:27 WBC Hgb RBC Hct MCH MCHC MCV RDW Plt Count [place] % (Auto) Lymph % (Auto) [place] # [place] # (Auto) Seg Neutrophils % Seg Neutrophils # Seg Neuts % (Manual) Lymphocytes % (Manual) Seg Neutrophils # Man Lymphocytes # (Manual) Monocytes # (Manual) Eosinophils # (Manual) PT INR APTT ABG pH POC ABG pCO2 POC ABG pO2 ABG pO2 ABG HCO3 ABG Base Excess ABG Hemoglobin ABG Oxyhemoglobin ABG Sodium ABG Potassium ABG Glucose Oxyhemoglobin Carboxyhemoglobin Sodium 146 H Potassium 2.0 L* D 2.2 L* Chloride Carbon Dioxide 32 H BUN 2 L < 1 L < 1 L Creatinine 0.2 L 0.2 L 0.4 L D Glucose 139 H 130 H 574 H* POC Glucose Calcium 8.0 L 7.0 L D Phosphorus Magnesium 1.60 L AST ALT Total Creatine Kinase CK-MB (CK-2) Total Protein Albumin Arterial Blood Glucose Arterial Blood Ionized Calcium Urine WBC (Auto) Vancomycin Trough Salicylates Acetaminophen Valproic Acid Phenytoin 07/23/20 07/23/20 07/23/20 10:58 11:16 16:50 WBC Hgb RBC Hct MCH MCHC MCV RDW Plt Count [place] % (Auto) Lymph % (Auto) [place] # [place] # (Auto) Seg Neutrophils % Seg Neutrophils # Seg Neuts % (Manual) Lymphocytes % (Manual) Seg Neutrophils # Man Lymphocytes # (Manual) Monocytes # (Manual) Eosinophils # (Manual) PT INR APTT ABG pH POC ABG pCO2 POC ABG pO2 ABG pO2 ABG HCO3 ABG Base Excess ABG Hemoglobin ABG Oxyhemoglobin ABG Sodium ABG Potassium ABG Glucose Oxyhemoglobin Carboxyhemoglobin Sodium 146 H Potassium 3.5 L D Chloride Carbon Dioxide 31 H BUN 2 L Creatinine 0.2 L Glucose 112 H POC Glucose 111 H 137 H Calcium 8.3 L D Phosphorus Magnesium AST ALT Total Creatine Kinase CK-MB (CK-2) Total Protein Albumin Arterial Blood Glucose Arterial Blood Ionized Calcium Urine WBC (Auto) Vancomycin Trough Salicylates Acetaminophen Valproic Acid Phenytoin 07/23/20 07/24/20 07/24/20 22:33 06:00 08:47 WBC Hgb RBC Hct MCH MCHC MCV RDW Plt Count [place] % (Auto) Lymph % (Auto) [place] # [place] # (Auto) Seg Neutrophils % Seg Neutrophils # Seg Neuts % (Manual) Lymphocytes % (Manual) Seg Neutrophils # Man Lymphocytes # (Manual) Monocytes # (Manual) Eosinophils # (Manual) PT INR APTT ABG pH POC ABG pCO2 POC ABG pO2 ABG pO2 ABG HCO3 ABG Base Excess ABG Hemoglobin ABG Oxyhemoglobin ABG Sodium ABG Potassium ABG Glucose Oxyhemoglobin Carboxyhemoglobin Sodium 146 H Potassium 3.0 L Chloride Carbon Dioxide 31 H BUN Creatinine 0.3 L Glucose 140 H POC Glucose 153 H 118 H Calcium Phosphorus Magnesium AST ALT Total Creatine Kinase CK-MB (CK-2) Total Protein Albumin Arterial Blood Glucose Arterial Blood Ionized Calcium Urine WBC (Auto) Vancomycin Trough Salicylates Acetaminophen Valproic Acid Phenytoin 07/24/20 07/24/20 07/25/20 12:04 17:34 05:58 WBC Hgb RBC Hct MCH MCHC MCV RDW Plt Count [place] % (Auto) Lymph % (Auto) [place] # [place] # (Auto) Seg Neutrophils % Seg Neutrophils # Seg Neuts % (Manual) Lymphocytes % (Manual) Seg Neutrophils # Man Lymphocytes # (Manual) Monocytes # (Manual) Eosinophils # (Manual) PT INR APTT ABG pH POC ABG pCO2 POC ABG pO2 ABG pO2 ABG HCO3 ABG Base Excess ABG Hemoglobin ABG Oxyhemoglobin ABG Sodium ABG Potassium ABG Glucose Oxyhemoglobin Carboxyhemoglobin Sodium Potassium Chloride Carbon Dioxide BUN Creatinine Glucose POC Glucose 126 H 146 H 141 H Calcium Phosphorus Magnesium AST ALT Total Creatine Kinase CK-MB (CK-2) Total Protein Albumin Arterial Blood Glucose Arterial Blood Ionized Calcium Urine WBC (Auto) Vancomycin Trough Salicylates Acetaminophen Valproic Acid Phenytoin 07/25/20 07/25/20 07/25/20 08:09 09:53 12:07 WBC Hgb RBC Hct MCH MCHC MCV RDW Plt Count [place] % (Auto) Lymph % (Auto) [place] # [place] # (Auto) Seg Neutrophils % Seg Neutrophils # Seg Neuts % (Manual) Lymphocytes % (Manual) Seg Neutrophils # Man Lymphocytes # (Manual) Monocytes # (Manual) Eosinophils # (Manual) PT INR APTT ABG pH POC ABG pCO2 POC ABG pO2 ABG pO2 ABG HCO3 ABG Base Excess ABG Hemoglobin ABG Oxyhemoglobin ABG Sodium ABG Potassium ABG Glucose Oxyhemoglobin Carboxyhemoglobin Sodium Potassium Chloride Carbon Dioxide BUN Creatinine 0.2 L Glucose 115 H POC Glucose 138 H 131 H Calcium 8.2 L Phosphorus Magnesium AST ALT Total Creatine Kinase CK-MB (CK-2) Total Protein Albumin Arterial Blood Glucose Arterial Blood Ionized Calcium Urine WBC (Auto) Vancomycin Trough Salicylates Acetaminophen Valproic Acid Phenytoin 07/25/20 07/25/20 07/26/20 17:35 22:31 05:43 WBC Hgb RBC Hct MCH MCHC MCV RDW Plt Count [place] % (Auto) Lymph % (Auto) [place] # [place] # (Auto) Seg Neutrophils % Seg Neutrophils # Seg Neuts % (Manual) Lymphocytes % (Manual) Seg Neutrophils # Man Lymphocytes # (Manual) Monocytes # (Manual) Eosinophils # (Manual) PT INR APTT ABG pH POC ABG pCO2 POC ABG pO2 ABG pO2 ABG HCO3 ABG Base Excess ABG Hemoglobin ABG Oxyhemoglobin ABG Sodium ABG Potassium ABG Glucose Oxyhemoglobin Carboxyhemoglobin Sodium Potassium Chloride Carbon Dioxide BUN Creatinine Glucose POC Glucose 125 H 130 H 153 H Calcium Phosphorus Magnesium AST ALT Total Creatine Kinase CK-MB (CK-2) Total Protein Albumin Arterial Blood Glucose Arterial Blood Ionized Calcium Urine WBC (Auto) Vancomycin Trough Salicylates Acetaminophen Valproic Acid Phenytoin 07/26/20 07/26/20 07/26/20 07:30 07:30 12:01 WBC Hgb RBC Hct MCH 33 H MCHC MCV RDW Plt Count 464 H [place] % (Auto) Lymph % (Auto) [place] # [place] # (Auto) Seg Neutrophils % 71.4 H Seg Neutrophils # Seg Neuts % (Manual) Lymphocytes % (Manual) Seg Neutrophils # Man Lymphocytes # (Manual) Monocytes # (Manual) Eosinophils # (Manual) PT INR APTT ABG pH POC ABG pCO2 POC ABG pO2 ABG pO2 ABG HCO3 ABG Base Excess ABG Hemoglobin ABG Oxyhemoglobin ABG Sodium ABG Potassium ABG Glucose Oxyhemoglobin Carboxyhemoglobin Sodium Potassium Chloride Carbon Dioxide BUN Creatinine 0.3 L Glucose 144 H POC Glucose 134 H Calcium Phosphorus Magnesium AST ALT Total Creatine Kinase CK-MB (CK-2) Total Protein Albumin Arterial Blood Glucose Arterial Blood Ionized Calcium Urine WBC (Auto) Vancomycin Trough Salicylates Acetaminophen Valproic Acid Phenytoin 07/26/20 07/27/20 07/27/20 17:08 06:11 09:25 WBC Hgb RBC Hct MCH MCHC MCV RDW Plt Count [place] % (Auto) Lymph % (Auto) [place] # [place] # (Auto) Seg Neutrophils % Seg Neutrophils # Seg Neuts % (Manual) Lymphocytes % (Manual) Seg Neutrophils # Man Lymphocytes # (Manual) Monocytes # (Manual) Eosinophils # (Manual) PT INR APTT ABG pH POC ABG pCO2 POC ABG pO2 ABG pO2 ABG HCO3 ABG Base Excess ABG Hemoglobin ABG Oxyhemoglobin ABG Sodium ABG Potassium ABG Glucose Oxyhemoglobin Carboxyhemoglobin Sodium 136 L Potassium Chloride Carbon Dioxide BUN Creatinine 0.3 L Glucose 120 H POC Glucose 106 H 128 H Calcium Phosphorus Magnesium AST ALT Total Creatine Kinase CK-MB (CK-2) Total Protein Albumin Arterial Blood Glucose Arterial Blood Ionized Calcium Urine WBC (Auto) Vancomycin Trough Salicylates Acetaminophen Valproic Acid Phenytoin 07/27/20 07/27/20 07/27/20 12:51 17:41 23:40 WBC Hgb RBC Hct MCH MCHC MCV RDW Plt Count [place] % (Auto) Lymph % (Auto) [place] # [place] # (Auto) Seg Neutrophils % Seg Neutrophils # Seg Neuts % (Manual) Lymphocytes % (Manual) Seg Neutrophils # Man Lymphocytes # (Manual) Monocytes # (Manual) Eosinophils # (Manual) PT INR APTT ABG pH POC ABG pCO2 POC ABG pO2 ABG pO2 ABG HCO3 ABG Base Excess ABG Hemoglobin ABG Oxyhemoglobin ABG Sodium ABG Potassium ABG Glucose Oxyhemoglobin Carboxyhemoglobin Sodium Potassium Chloride Carbon Dioxide BUN Creatinine Glucose POC Glucose 124 H 111 H 148 H Calcium Phosphorus Magnesium AST ALT Total Creatine Kinase CK-MB (CK-2) Total Protein Albumin Arterial Blood Glucose Arterial Blood Ionized Calcium Urine WBC (Auto) Vancomycin Trough Salicylates Acetaminophen Valproic Acid Phenytoin 07/28/20 07/28/20 07/28/20 05:00 06:14 11:25 WBC Hgb RBC Hct MCH MCHC MCV RDW Plt Count [place] % (Auto) Lymph % (Auto) [place] # [place] # (Auto) Seg Neutrophils % Seg Neutrophils # Seg Neuts % (Manual) Lymphocytes % (Manual) Seg Neutrophils # Man Lymphocytes # (Manual) Monocytes # (Manual) Eosinophils # (Manual) PT INR APTT ABG pH POC ABG pCO2 POC ABG pO2 ABG pO2 ABG HCO3 ABG Base Excess ABG Hemoglobin ABG Oxyhemoglobin ABG Sodium ABG Potassium ABG Glucose Oxyhemoglobin Carboxyhemoglobin Sodium 135 L Potassium 5.1 H Chloride Carbon Dioxide 21 L BUN Creatinine 0.3 L Glucose 131 H POC Glucose 161 H 143 H Calcium Phosphorus Magnesium AST ALT Total Creatine Kinase CK-MB (CK-2) Total Protein Albumin Arterial Blood Glucose Arterial Blood Ionized Calcium Urine WBC (Auto) Vancomycin Trough Salicylates Acetaminophen Valproic Acid Phenytoin 07/28/20 07/28/20 07/29/20 18:06 23:53 05:36 WBC Hgb RBC Hct MCH MCHC MCV RDW Plt Count [place] % (Auto) Lymph % (Auto) [place] # [place] # (Auto) Seg Neutrophils % Seg Neutrophils # Seg Neuts % (Manual) Lymphocytes % (Manual) Seg Neutrophils # Man Lymphocytes # (Manual) Monocytes # (Manual) Eosinophils # (Manual) PT INR APTT ABG pH POC ABG pCO2 POC ABG pO2 ABG pO2 ABG HCO3 ABG Base Excess ABG Hemoglobin ABG Oxyhemoglobin ABG Sodium ABG Potassium ABG Glucose Oxyhemoglobin Carboxyhemoglobin Sodium Potassium Chloride Carbon Dioxide BUN Creatinine 0.3 L Glucose 149 H POC Glucose 160 H 118 H Calcium Phosphorus Magnesium AST ALT Total Creatine Kinase CK-MB (CK-2) Total Protein Albumin Arterial Blood Glucose Arterial Blood Ionized Calcium Urine WBC (Auto) Vancomycin Trough Salicylates Acetaminophen Valproic Acid Phenytoin 07/29/20 07/29/20 07/29/20 06:46 12:08 17:29 WBC Hgb RBC Hct MCH MCHC MCV RDW Plt Count [place] % (Auto) Lymph % (Auto) [place] # [place] # (Auto) Seg Neutrophils % Seg Neutrophils # Seg Neuts % (Manual) Lymphocytes % (Manual) Seg Neutrophils # Man Lymphocytes # (Manual) Monocytes # (Manual) Eosinophils # (Manual) PT INR APTT ABG pH POC ABG pCO2 POC ABG pO2 ABG pO2 ABG HCO3 ABG Base Excess ABG Hemoglobin ABG Oxyhemoglobin ABG Sodium ABG Potassium ABG Glucose Oxyhemoglobin Carboxyhemoglobin Sodium Potassium Chloride Carbon Dioxide BUN Creatinine Glucose POC Glucose 119 H 126 H 148 H Calcium Phosphorus Magnesium AST ALT Total Creatine Kinase CK-MB (CK-2) Total Protein Albumin Arterial Blood Glucose Arterial Blood Ionized Calcium Urine WBC (Auto) Vancomycin Trough Salicylates Acetaminophen Valproic Acid Phenytoin 09/27/20 09/28/20 09/28/20 23:49 05:48 17:48 WBC Hgb RBC Hct MCH MCHC MCV RDW Plt Count [place] % (Auto) Lymph % (Auto) [place] # [place] # (Auto) Seg Neutrophils % Seg Neutrophils # Seg Neuts % (Manual) Lymphocytes % (Manual) Seg Neutrophils # Man Lymphocytes # (Manual) Monocytes # (Manual) Eosinophils # (Manual) PT INR APTT ABG pH POC ABG pCO2 POC ABG pO2 ABG pO2 ABG HCO3 ABG Base Excess ABG Hemoglobin ABG Oxyhemoglobin ABG Sodium ABG Potassium ABG Glucose Oxyhemoglobin Carboxyhemoglobin Sodium Potassium Chloride Carbon Dioxide BUN Creatinine Glucose POC Glucose 119 H 119 H 110 H Calcium Phosphorus Magnesium AST ALT Total Creatine Kinase CK-MB (CK-2) Total Protein Albumin Arterial Blood Glucose Arterial Blood Ionized Calcium Urine WBC (Auto) Vancomycin Trough Salicylates Acetaminophen Valproic Acid Phenytoin 07/31/20 07/31/20 07/31/20 11:55 12:34 17:18 WBC Hgb RBC Hct MCH MCHC MCV RDW Plt Count [place] % (Auto) Lymph % (Auto) [place] # [place] # (Auto) Seg Neutrophils % Seg Neutrophils # Seg Neuts % (Manual) Lymphocytes % (Manual) Seg Neutrophils # Man Lymphocytes # (Manual) Monocytes # (Manual) Eosinophils # (Manual) PT INR APTT ABG pH POC ABG pCO2 POC ABG pO2 ABG pO2 ABG HCO3 ABG Base Excess ABG Hemoglobin ABG Oxyhemoglobin ABG Sodium ABG Potassium ABG Glucose Oxyhemoglobin Carboxyhemoglobin Sodium 134 L Potassium Chloride 97.0 L Carbon Dioxide 21 L BUN 19 H Creatinine 0.3 L Glucose 116 H POC Glucose 119 H 124 H Calcium Phosphorus Magnesium AST ALT Total Creatine Kinase CK-MB (CK-2) Total Protein Albumin Arterial Blood Glucose Arterial Blood Ionized Calcium Urine WBC (Auto) Vancomycin Trough Salicylates Acetaminophen Valproic Acid Phenytoin 07/31/20 08/01/20 08/01/20 23:30 06:22 06:45 WBC Hgb RBC Hct MCH MCHC MCV RDW Plt Count [place] % (Auto) Lymph % (Auto) [place] # [place] # (Auto) Seg Neutrophils % Seg Neutrophils # Seg Neuts % (Manual) Lymphocytes % (Manual) Seg Neutrophils # Man Lymphocytes # (Manual) Monocytes # (Manual) Eosinophils # (Manual) PT INR APTT ABG pH POC ABG pCO2 POC ABG pO2 ABG pO2 ABG HCO3 ABG Base Excess ABG Hemoglobin ABG Oxyhemoglobin ABG Sodium ABG Potassium ABG Glucose Oxyhemoglobin Carboxyhemoglobin Sodium 136 L Potassium Chloride 97.9 L Carbon Dioxide BUN Creatinine 0.3 L Glucose 122 H POC Glucose 138 H 123 H Calcium Phosphorus Magnesium AST ALT Total Creatine Kinase CK-MB (CK-2) Total Protein Albumin Arterial Blood Glucose Arterial Blood Ionized Calcium Urine WBC (Auto) Vancomycin Trough Salicylates Acetaminophen Valproic Acid Phenytoin 08/01/20 08/02/20 08/02/20 18:17 00:51 06:48 WBC Hgb RBC Hct MCH MCHC MCV RDW Plt Count [place] % (Auto) Lymph % (Auto) [place] # [place] # (Auto) Seg Neutrophils % Seg Neutrophils # Seg Neuts % (Manual) Lymphocytes % (Manual) Seg Neutrophils # Man Lymphocytes # (Manual) Monocytes # (Manual) Eosinophils # (Manual) PT INR APTT ABG pH POC ABG pCO2 POC ABG pO2 ABG pO2 ABG HCO3 ABG Base Excess ABG Hemoglobin ABG Oxyhemoglobin ABG Sodium ABG Potassium ABG Glucose Oxyhemoglobin Carboxyhemoglobin Sodium Potassium Chloride Carbon Dioxide BUN Creatinine Glucose POC Glucose 111 H 109 H 123 H Calcium Phosphorus Magnesium AST ALT Total Creatine Kinase CK-MB (CK-2) Total Protein Albumin Arterial Blood Glucose Arterial Blood Ionized Calcium Urine WBC (Auto) Vancomycin Trough Salicylates Acetaminophen Valproic Acid Phenytoin 08/02/20 08/02/20 08/02/20 12:51 17:55 22:18 WBC Hgb RBC Hct MCH MCHC MCV RDW Plt Count [place] % (Auto) Lymph % (Auto) [place] # [place] # (Auto) Seg Neutrophils % Seg Neutrophils # Seg Neuts % (Manual) Lymphocytes % (Manual) Seg Neutrophils # Man Lymphocytes # (Manual) Monocytes # (Manual) Eosinophils # (Manual) PT INR APTT ABG pH POC ABG pCO2 POC ABG pO2 ABG pO2 ABG HCO3 ABG Base Excess ABG Hemoglobin ABG Oxyhemoglobin ABG Sodium ABG Potassium ABG Glucose Oxyhemoglobin Carboxyhemoglobin Sodium Potassium Chloride Carbon Dioxide BUN Creatinine Glucose POC Glucose 135 H 119 H 117 H Calcium Phosphorus Magnesium AST ALT Total Creatine Kinase CK-MB (CK-2) Total Protein Albumin Arterial Blood Glucose Arterial Blood Ionized Calcium Urine WBC (Auto) Vancomycin Trough Salicylates Acetaminophen Valproic Acid Phenytoin 08/03/20 08/03/20 08/03/20 05:45 06:05 12:15 WBC Hgb RBC Hct MCH MCHC MCV RDW Plt Count [place] % (Auto) Lymph % (Auto) [place] # [place] # (Auto) Seg Neutrophils % Seg Neutrophils # Seg Neuts % (Manual) Lymphocytes % (Manual) Seg Neutrophils # Man Lymphocytes # (Manual) Monocytes # (Manual) Eosinophils # (Manual) PT INR APTT ABG pH POC ABG pCO2 POC ABG pO2 ABG pO2 ABG HCO3 ABG Base Excess ABG Hemoglobin ABG Oxyhemoglobin ABG Sodium ABG Potassium ABG Glucose Oxyhemoglobin Carboxyhemoglobin Sodium 135 L Potassium 5.4 H D Chloride 96.2 L Carbon Dioxide BUN Creatinine 0.4 L Glucose 117 H POC Glucose 109 H 127 H Calcium Phosphorus Magnesium AST ALT Total Creatine Kinase CK-MB (CK-2) Total Protein Albumin Arterial Blood Glucose Arterial Blood Ionized Calcium Urine WBC (Auto) Vancomycin Trough Salicylates Acetaminophen Valproic Acid Phenytoin 08/03/20 08/03/20 08/04/20 17:00 22:35 05:59 WBC Hgb RBC Hct MCH MCHC MCV RDW Plt Count [place] % (Auto) Lymph % (Auto) [place] # [place] # (Auto) Seg Neutrophils % Seg Neutrophils # Seg Neuts % (Manual) Lymphocytes % (Manual) Seg Neutrophils # Man Lymphocytes # (Manual) Monocytes # (Manual) Eosinophils # (Manual) PT INR APTT ABG pH POC ABG pCO2 POC ABG pO2 ABG pO2 ABG HCO3 ABG Base Excess ABG Hemoglobin ABG Oxyhemoglobin ABG Sodium ABG Potassium ABG Glucose Oxyhemoglobin Carboxyhemoglobin Sodium Potassium Chloride Carbon Dioxide BUN Creatinine Glucose POC Glucose 117 H 114 H 115 H Calcium Phosphorus Magnesium AST ALT Total Creatine Kinase CK-MB (CK-2) Total Protein Albumin Arterial Blood Glucose Arterial Blood Ionized Calcium Urine WBC (Auto) Vancomycin Trough Salicylates Acetaminophen Valproic Acid Phenytoin 08/04/20 08/04/20 08/05/20 17:00 23:58 06:33 WBC Hgb RBC Hct MCH MCHC MCV RDW Plt Count [place] % (Auto) Lymph % (Auto) [place] # [place] # (Auto) Seg Neutrophils % Seg Neutrophils # Seg Neuts % (Manual) Lymphocytes % (Manual) Seg Neutrophils # Man Lymphocytes # (Manual) Monocytes # (Manual) Eosinophils # (Manual) PT INR APTT ABG pH POC ABG pCO2 POC ABG pO2 ABG pO2 ABG HCO3 ABG Base Excess ABG Hemoglobin ABG Oxyhemoglobin ABG Sodium ABG Potassium ABG Glucose Oxyhemoglobin Carboxyhemoglobin Sodium Potassium Chloride Carbon Dioxide BUN Creatinine Glucose POC Glucose 123 H 110 H 115 H Calcium Phosphorus Magnesium AST ALT Total Creatine Kinase CK-MB (CK-2) Total Protein Albumin Arterial Blood Glucose Arterial Blood Ionized Calcium Urine WBC (Auto) Vancomycin Trough Salicylates Acetaminophen Valproic Acid Phenytoin 08/06/20 08/06/20 08/07/20 08:59 12:27 00:39 WBC Hgb RBC Hct MCH MCHC MCV RDW Plt Count [place] % (Auto) Lymph % (Auto) [place] # [place] # (Auto) Seg Neutrophils % Seg Neutrophils # Seg Neuts % (Manual) Lymphocytes % (Manual) Seg Neutrophils # Man Lymphocytes # (Manual) Monocytes # (Manual) Eosinophils # (Manual) PT INR APTT ABG pH POC ABG pCO2 POC ABG pO2 ABG pO2 ABG HCO3 ABG Base Excess ABG Hemoglobin ABG Oxyhemoglobin ABG Sodium ABG Potassium ABG Glucose Oxyhemoglobin Carboxyhemoglobin Sodium 133 L Potassium Chloride 97.0 L Carbon Dioxide BUN Creatinine 0.3 L Glucose 130 H POC Glucose 112 H 55 L Calcium Phosphorus Magnesium AST 63 H ALT Total Creatine Kinase CK-MB (CK-2) Total Protein Albumin 3.8 L Arterial Blood Glucose Arterial Blood Ionized Calcium Urine WBC (Auto) Vancomycin Trough Salicylates Acetaminophen Valproic Acid Phenytoin 08/07/20 08/07/20 08/07/20 05:36 07:19 07:19 WBC Hgb 15.2 H RBC Hct 45.5 H MCH 33 H MCHC MCV RDW Plt Count 663 H [place] % (Auto) Lymph % (Auto) [place] # [place] # (Auto) Seg Neutrophils % Seg Neutrophils # Seg Neuts % (Manual) Lymphocytes % (Manual) Seg Neutrophils # Man Lymphocytes # (Manual) Monocytes # (Manual) Eosinophils # (Manual) PT INR APTT ABG pH POC ABG pCO2 POC ABG pO2 ABG pO2 ABG HCO3 ABG Base Excess ABG Hemoglobin ABG Oxyhemoglobin ABG Sodium ABG Potassium ABG Glucose Oxyhemoglobin Carboxyhemoglobin Sodium 136 L Potassium Chloride 97.9 L Carbon Dioxide BUN Creatinine 0.3 L Glucose 123 H POC Glucose 118 H Calcium Phosphorus Magnesium AST ALT Total Creatine Kinase CK-MB (CK-2) Total Protein Albumin Arterial Blood Glucose Arterial Blood Ionized Calcium Urine WBC (Auto) Vancomycin Trough Salicylates Acetaminophen Valproic Acid Phenytoin 08/07/20 08/08/20 08/08/20 15:47 05:24 11:42 WBC Hgb RBC Hct MCH MCHC MCV RDW Plt Count [place] % (Auto) Lymph % (Auto) [place] # [place] # (Auto) Seg Neutrophils % Seg Neutrophils # Seg Neuts % (Manual) Lymphocytes % (Manual) Seg Neutrophils # Man Lymphocytes # (Manual) Monocytes # (Manual) Eosinophils # (Manual) PT 11.7 L INR 0.84 L APTT ABG pH POC ABG pCO2 POC ABG pO2 ABG pO2 ABG HCO3 ABG Base Excess ABG Hemoglobin ABG Oxyhemoglobin ABG Sodium ABG Potassium ABG Glucose Oxyhemoglobin Carboxyhemoglobin Sodium Potassium Chloride Carbon Dioxide BUN Creatinine Glucose POC Glucose 115 H 113 H Calcium Phosphorus Magnesium AST ALT Total Creatine Kinase CK-MB (CK-2) Total Protein Albumin Arterial Blood Glucose Arterial Blood Ionized Calcium Urine WBC (Auto) Vancomycin Trough Salicylates Acetaminophen Valproic Acid Phenytoin 08/08/20 08/09/20 08/09/20 22:24 07:05 07:05 WBC Hgb RBC Hct MCH 34 H MCHC 36 H MCV RDW Plt Count 539 H [place] % (Auto) Lymph % (Auto) [place] # [place] # (Auto) Seg Neutrophils % Seg Neutrophils # Seg Neuts % (Manual) Lymphocytes % (Manual) Seg Neutrophils # Man Lymphocytes # (Manual) Monocytes # (Manual) Eosinophils # (Manual) PT INR APTT ABG pH POC ABG pCO2 POC ABG pO2 ABG pO2 ABG HCO3 ABG Base Excess ABG Hemoglobin ABG Oxyhemoglobin ABG Sodium ABG Potassium ABG Glucose Oxyhemoglobin Carboxyhemoglobin Sodium 135 L Potassium 5.2 H Chloride Carbon Dioxide BUN Creatinine 0.4 L Glucose POC Glucose 109 H Calcium Phosphorus Magnesium AST ALT Total Creatine Kinase CK-MB (CK-2) Total Protein Albumin Arterial Blood Glucose Arterial Blood Ionized Calcium Urine WBC (Auto) Vancomycin Trough Salicylates Acetaminophen Valproic Acid Phenytoin 08/09/20 08/10/20 08/11/20 23:30 13:00 12:10 WBC Hgb RBC Hct MCH MCHC MCV RDW Plt Count [place] % (Auto) Lymph % (Auto) [place] # [place] # (Auto) Seg Neutrophils % Seg Neutrophils # Seg Neuts % (Manual) Lymphocytes % (Manual) Seg Neutrophils # Man Lymphocytes # (Manual) Monocytes # (Manual) Eosinophils # (Manual) PT INR APTT ABG pH POC ABG pCO2 POC ABG pO2 ABG pO2 ABG HCO3 ABG Base Excess ABG Hemoglobin ABG Oxyhemoglobin ABG Sodium ABG Potassium ABG Glucose Oxyhemoglobin Carboxyhemoglobin Sodium Potassium Chloride Carbon Dioxide 21 L BUN Creatinine 0.3 L Glucose POC Glucose 208 H 118 H Calcium Phosphorus Magnesium AST ALT Total Creatine Kinase CK-MB (CK-2) Total Protein Albumin Arterial Blood Glucose Arterial Blood Ionized Calcium Urine WBC (Auto) Vancomycin Trough Salicylates Acetaminophen Valproic Acid Phenytoin 08/11/20 08/11/20 08/12/20 17:49 23:31 06:18 WBC Hgb RBC Hct MCH MCHC MCV RDW Plt Count [place] % (Auto) Lymph % (Auto) [place] # [place] # (Auto) Seg Neutrophils % Seg Neutrophils # Seg Neuts % (Manual) Lymphocytes % (Manual) Seg Neutrophils # Man Lymphocytes # (Manual) Monocytes # (Manual) Eosinophils # (Manual) PT INR APTT ABG pH POC ABG pCO2 POC ABG pO2 ABG pO2 ABG HCO3 ABG Base Excess ABG Hemoglobin ABG Oxyhemoglobin ABG Sodium ABG Potassium ABG Glucose Oxyhemoglobin Carboxyhemoglobin Sodium Potassium Chloride Carbon Dioxide BUN Creatinine Glucose POC Glucose 139 H 133 H 132 H Calcium Phosphorus Magnesium AST ALT Total Creatine Kinase CK-MB (CK-2) Total Protein Albumin Arterial Blood Glucose Arterial Blood Ionized Calcium Urine WBC (Auto) Vancomycin Trough Salicylates Acetaminophen Valproic Acid Phenytoin 08/12/20 08/12/20 08/13/20 12:17 16:40 00:17 WBC Hgb RBC Hct MCH MCHC MCV RDW Plt Count [place] % (Auto) Lymph % (Auto) [place] # [place] # (Auto) Seg Neutrophils % Seg Neutrophils # Seg Neuts % (Manual) Lymphocytes % (Manual) Seg Neutrophils # Man Lymphocytes # (Manual) Monocytes # (Manual) Eosinophils # (Manual) PT INR APTT ABG pH POC ABG pCO2 POC ABG pO2 ABG pO2 ABG HCO3 ABG Base Excess ABG Hemoglobin ABG Oxyhemoglobin ABG Sodium ABG Potassium ABG Glucose Oxyhemoglobin Carboxyhemoglobin Sodium Potassium Chloride Carbon Dioxide BUN Creatinine Glucose POC Glucose 124 H 109 H 128 H Calcium Phosphorus Magnesium AST ALT Total Creatine Kinase CK-MB (CK-2) Total Protein Albumin Arterial Blood Glucose Arterial Blood Ionized Calcium Urine WBC (Auto) Vancomycin Trough Salicylates Acetaminophen Valproic Acid Phenytoin 08/13/20 08/13/20 08/13/20 06:18 16:50 22:40 WBC Hgb RBC Hct MCH MCHC MCV RDW Plt Count [place] % (Auto) Lymph % (Auto) [place] # [place] # (Auto) Seg Neutrophils % Seg Neutrophils # Seg Neuts % (Manual) Lymphocytes % (Manual) Seg Neutrophils # Man Lymphocytes # (Manual) Monocytes # (Manual) Eosinophils # (Manual) PT INR APTT ABG pH POC ABG pCO2 POC ABG pO2 ABG pO2 ABG HCO3 ABG Base Excess ABG Hemoglobin ABG Oxyhemoglobin ABG Sodium ABG Potassium ABG Glucose Oxyhemoglobin Carboxyhemoglobin Sodium Potassium Chloride Carbon Dioxide BUN Creatinine Glucose POC Glucose 115 H 119 H 109 H Calcium Phosphorus Magnesium AST ALT Total Creatine Kinase CK-MB (CK-2) Total Protein Albumin Arterial Blood Glucose Arterial Blood Ionized Calcium Urine WBC (Auto) Vancomycin Trough Salicylates Acetaminophen Valproic Acid Phenytoin 08/14/20 08/14/20 08/15/20 05:13 12:03 09:24 WBC Hgb RBC Hct MCH MCHC MCV RDW Plt Count [place] % (Auto) Lymph % (Auto) [place] # [place] # (Auto) Seg Neutrophils % Seg Neutrophils # Seg Neuts % (Manual) Lymphocytes % (Manual) Seg Neutrophils # Man Lymphocytes # (Manual) Monocytes # (Manual) Eosinophils # (Manual) PT INR APTT ABG pH POC ABG pCO2 POC ABG pO2 ABG pO2 ABG HCO3 ABG Base Excess ABG Hemoglobin ABG Oxyhemoglobin ABG Sodium ABG Potassium ABG Glucose Oxyhemoglobin Carboxyhemoglobin Sodium 134 L Potassium Chloride Carbon Dioxide 14 L D BUN Creatinine 0.3 L Glucose 121 H POC Glucose 122 H 126 H Calcium Phosphorus Magnesium AST ALT Total Creatine Kinase CK-MB (CK-2) Total Protein Albumin Arterial Blood Glucose Arterial Blood Ionized Calcium Urine WBC (Auto) Vancomycin Trough Salicylates Acetaminophen Valproic Acid Phenytoin 08/15/20 08/15/20 08/15/20 12:03 15:26 17:08 WBC Hgb RBC Hct MCH MCHC MCV RDW Plt Count [place] % (Auto) Lymph % (Auto) [place] # [place] # (Auto) Seg Neutrophils % Seg Neutrophils # Seg Neuts % (Manual) Lymphocytes % (Manual) Seg Neutrophils # Man Lymphocytes # (Manual) Monocytes # (Manual) Eosinophils # (Manual) PT INR APTT 20.4 L ABG pH POC ABG pCO2 POC ABG pO2 ABG pO2 ABG HCO3 ABG Base Excess ABG Hemoglobin ABG Oxyhemoglobin ABG Sodium ABG Potassium ABG Glucose Oxyhemoglobin Carboxyhemoglobin Sodium Potassium Chloride Carbon Dioxide BUN Creatinine Glucose POC Glucose 108 H 137 H Calcium Phosphorus Magnesium AST ALT Total Creatine Kinase CK-MB (CK-2) Total Protein Albumin Arterial Blood Glucose Arterial Blood Ionized Calcium Urine WBC (Auto) Vancomycin Trough Salicylates Acetaminophen Valproic Acid Phenytoin 08/15/20 08/16/20 08/16/20 23:11 11:56 11:56 WBC Hgb RBC Hct MCH MCHC MCV RDW Plt Count [place] % (Auto) Lymph % (Auto) [place] # [place] # (Auto) Seg Neutrophils % Seg Neutrophils # Seg Neuts % (Manual) Lymphocytes % (Manual) Seg Neutrophils # Man Lymphocytes # (Manual) Monocytes # (Manual) Eosinophils # (Manual) PT INR APTT ABG pH POC ABG pCO2 POC ABG pO2 ABG pO2 ABG HCO3 ABG Base Excess ABG Hemoglobin ABG Oxyhemoglobin ABG Sodium ABG Potassium ABG Glucose Oxyhemoglobin Carboxyhemoglobin Sodium 131 L Potassium Chloride 91.6 L Carbon Dioxide BUN Creatinine 0.3 L Glucose 169 H POC Glucose 152 H Calcium Phosphorus Magnesium AST ALT Total Creatine Kinase CK-MB (CK-2) Total Protein Albumin Arterial Blood Glucose Arterial Blood Ionized Calcium Urine WBC (Auto) Vancomycin Trough Salicylates Acetaminophen Valproic Acid Phenytoin 8.9 L 08/16/20 08/17/20 08/17/20 16:45 04:48 05:26 WBC Hgb RBC Hct MCH MCHC MCV RDW Plt Count [place] % (Auto) Lymph % (Auto) [place] # [place] # (Auto) Seg Neutrophils % Seg Neutrophils # Seg Neuts % (Manual) Lymphocytes % (Manual) Seg Neutrophils # Man Lymphocytes # (Manual) Monocytes # (Manual) Eosinophils # (Manual) PT INR APTT ABG pH POC ABG pCO2 POC ABG pO2 ABG pO2 ABG HCO3 ABG Base Excess ABG Hemoglobin ABG Oxyhemoglobin ABG Sodium ABG Potassium ABG Glucose Oxyhemoglobin Carboxyhemoglobin Sodium 134 L Potassium Chloride 94.4 L Carbon Dioxide BUN Creatinine 0.3 L Glucose 122 H POC Glucose 125 H 122 H Calcium Phosphorus Magnesium AST ALT Total Creatine Kinase CK-MB (CK-2) Total Protein Albumin Arterial Blood Glucose Arterial Blood Ionized Calcium Urine WBC (Auto) Vancomycin Trough Salicylates Acetaminophen Valproic Acid Phenytoin 08/17/20 08/17/20 08/18/20 16:30 19:39 00:59 WBC Hgb RBC Hct MCH MCHC MCV RDW Plt Count [place] % (Auto) Lymph % (Auto) [place] # [place] # (Auto) Seg Neutrophils % Seg Neutrophils # Seg Neuts % (Manual) Lymphocytes % (Manual) Seg Neutrophils # Man Lymphocytes # (Manual) Monocytes # (Manual) Eosinophils # (Manual) PT INR APTT ABG pH POC ABG pCO2 POC ABG pO2 ABG pO2 ABG HCO3 ABG Base Excess ABG Hemoglobin ABG Oxyhemoglobin ABG Sodium ABG Potassium ABG Glucose Oxyhemoglobin Carboxyhemoglobin Sodium 133 L Potassium Chloride 94.0 L Carbon Dioxide BUN Creatinine 0.2 L Glucose 125 H POC Glucose 126 H 120 H Calcium Phosphorus Magnesium AST ALT Total Creatine Kinase CK-MB (CK-2) Total Protein Albumin Arterial Blood Glucose Arterial Blood Ionized Calcium Urine WBC (Auto) Vancomycin Trough Salicylates Acetaminophen Valproic Acid Phenytoin 08/18/20 08/18/20 08/19/20 07:13 17:23 00:48 WBC Hgb RBC Hct MCH MCHC MCV RDW Plt Count [place] % (Auto) Lymph % (Auto) [place] # [place] # (Auto) Seg Neutrophils % Seg Neutrophils # Seg Neuts % (Manual) Lymphocytes % (Manual) Seg Neutrophils # Man Lymphocytes # (Manual) Monocytes # (Manual) Eosinophils # (Manual) PT INR APTT ABG pH POC ABG pCO2 POC ABG pO2 ABG pO2 ABG HCO3 ABG Base Excess ABG Hemoglobin ABG Oxyhemoglobin ABG Sodium ABG Potassium ABG Glucose Oxyhemoglobin Carboxyhemoglobin Sodium Potassium Chloride Carbon Dioxide BUN Creatinine Glucose POC Glucose 127 H 109 H 116 H Calcium Phosphorus Magnesium AST ALT Total Creatine Kinase CK-MB (CK-2) Total Protein Albumin Arterial Blood Glucose Arterial Blood Ionized Calcium Urine WBC (Auto) Vancomycin Trough Salicylates Acetaminophen Valproic Acid Phenytoin 08/19/20 08/19/20 08/19/20 11:14 16:54 21:29 WBC Hgb RBC Hct MCH MCHC MCV RDW Plt Count [place] % (Auto) Lymph % (Auto) [place] # [place] # (Auto) Seg Neutrophils % Seg Neutrophils # Seg Neuts % (Manual) Lymphocytes % (Manual) Seg Neutrophils # Man Lymphocytes # (Manual) Monocytes # (Manual) Eosinophils # (Manual) PT INR APTT ABG pH 7.478 H POC ABG pCO2 POC ABG pO2 ABG pO2 68.2 L ABG HCO3 18.8 L ABG Base Excess -2.9 L ABG Hemoglobin ABG Oxyhemoglobin ABG Sodium ABG Potassium ABG Glucose Oxyhemoglobin 93.8 L Carboxyhemoglobin Sodium Potassium Chloride Carbon Dioxide BUN Creatinine Glucose POC Glucose 110 H 113 H Calcium Phosphorus Magnesium AST ALT Total Creatine Kinase CK-MB (CK-2) Total Protein Albumin Arterial Blood Glucose Arterial Blood Ionized Calcium Urine WBC (Auto) Vancomycin Trough Salicylates Acetaminophen Valproic Acid Phenytoin 08/19/20 08/20/20 08/20/20 23:53 00:12 01:52 WBC Hgb RBC Hct MCH MCHC MCV RDW Plt Count [place] % (Auto) Lymph % (Auto) [place] # [place] # (Auto) Seg Neutrophils % Seg Neutrophils # Seg Neuts % (Manual) Lymphocytes % (Manual) Seg Neutrophils # Man Lymphocytes # (Manual) Monocytes # (Manual) Eosinophils # (Manual) PT INR APTT ABG pH 7.496 H 7.562 H POC ABG pCO2 21.8 L 21.0 L POC ABG pO2 123.7 H ABG pO2 ABG HCO3 ABG Base Excess ABG Hemoglobin ABG Oxyhemoglobin ABG Sodium 133.1 L 133.9 L ABG Potassium 4.7 H ABG Glucose 202 H 151 H Oxyhemoglobin Carboxyhemoglobin Sodium Potassium Chloride Carbon Dioxide BUN Creatinine Glucose POC Glucose 183 H Calcium Phosphorus Magnesium AST ALT Total Creatine Kinase CK-MB (CK-2) Total Protein Albumin Arterial Blood Glucose 202 H 151 H Arterial Blood Ionized Calcium 4.4 L Urine WBC (Auto) Vancomycin Trough Salicylates Acetaminophen Valproic Acid Phenytoin 08/20/20 08/20/20 08/20/20 06:19 09:31 12:33 WBC Hgb RBC Hct MCH MCHC MCV RDW Plt Count [place] % (Auto) Lymph % (Auto) [place] # [place] # (Auto) Seg Neutrophils % Seg Neutrophils # Seg Neuts % (Manual) Lymphocytes % (Manual) Seg Neutrophils # Man Lymphocytes # (Manual) Monocytes # (Manual) Eosinophils # (Manual) PT INR APTT ABG pH POC ABG pCO2 POC ABG pO2 ABG pO2 ABG HCO3 ABG Base Excess ABG Hemoglobin ABG Oxyhemoglobin ABG Sodium ABG Potassium ABG Glucose Oxyhemoglobin Carboxyhemoglobin Sodium Potassium 5.2 H Chloride Carbon Dioxide BUN 34 H Creatinine Glucose 149 H POC Glucose 124 H 109 H Calcium 8.3 L Phosphorus Magnesium AST ALT Total Creatine Kinase CK-MB (CK-2) Total Protein Albumin Arterial Blood Glucose Arterial Blood Ionized Calcium Urine WBC (Auto) Vancomycin Trough Salicylates Acetaminophen Valproic Acid Phenytoin 08/20/20 08/21/20 08/21/20 18:26 00:58 05:21 WBC Hgb RBC Hct MCH MCHC MCV RDW Plt Count [place] % (Auto) Lymph % (Auto) [place] # [place] # (Auto) Seg Neutrophils % Seg Neutrophils # Seg Neuts % (Manual) Lymphocytes % (Manual) Seg Neutrophils # Man Lymphocytes # (Manual) Monocytes # (Manual) Eosinophils # (Manual) PT INR APTT ABG pH POC ABG pCO2 POC ABG pO2 ABG pO2 ABG HCO3 ABG Base Excess ABG Hemoglobin ABG Oxyhemoglobin ABG Sodium ABG Potassium ABG Glucose Oxyhemoglobin Carboxyhemoglobin Sodium Potassium Chloride Carbon Dioxide BUN Creatinine Glucose POC Glucose 133 H 143 H 106 H Calcium Phosphorus Magnesium AST ALT Total Creatine Kinase CK-MB (CK-2) Total Protein Albumin Arterial Blood Glucose Arterial Blood Ionized Calcium Urine WBC (Auto) Vancomycin Trough Salicylates Acetaminophen Valproic Acid Phenytoin 08/21/20 08/21/20 08/21/20 05:41 11:41 18:15 WBC Hgb RBC Hct MCH MCHC MCV RDW Plt Count [place] % (Auto) Lymph % (Auto) [place] # [place] # (Auto) Seg Neutrophils % Seg Neutrophils # Seg Neuts % (Manual) Lymphocytes % (Manual) Seg Neutrophils # Man Lymphocytes # (Manual) Monocytes # (Manual) Eosinophils # (Manual) PT INR APTT ABG pH 7.513 H POC ABG pCO2 POC ABG pO2 ABG pO2 ABG HCO3 26.2 H ABG Base Excess 3.4 H ABG Hemoglobin 10.5 L ABG Oxyhemoglobin ABG Sodium ABG Potassium ABG Glucose Oxyhemoglobin Carboxyhemoglobin Sodium Potassium Chloride Carbon Dioxide BUN 23 H Creatinine 0.2 L D Glucose 102 H POC Glucose 138 H Calcium 8.2 L Phosphorus Magnesium AST ALT Total Creatine Kinase CK-MB (CK-2) Total Protein Albumin Arterial Blood Glucose Arterial Blood Ionized Calcium Urine WBC (Auto) Vancomycin Trough Salicylates Acetaminophen Valproic Acid Phenytoin 08/21/20 08/22/20 08/22/20 18:38 05:41 11:18 WBC 20.8 H Hgb RBC 3.51 L Hct MCH 33 H MCHC MCV RDW Plt Count [place] % (Auto) Lymph % (Auto) [place] # [place] # (Auto) Seg Neutrophils % Seg Neutrophils # Seg Neuts % (Manual) Lymphocytes % (Manual) Seg Neutrophils # Man Lymphocytes # (Manual) Monocytes # (Manual) Eosinophils # (Manual) PT INR APTT ABG pH 7.518 H POC ABG pCO2 POC ABG pO2 143.5 H ABG pO2 ABG HCO3 ABG Base Excess ABG Hemoglobin ABG Oxyhemoglobin 98.9 H ABG Sodium 135.9 L ABG Potassium 3.2 L ABG Glucose 123 H Oxyhemoglobin Carboxyhemoglobin 0.4 L Sodium Potassium Chloride Carbon Dioxide BUN Creatinine Glucose POC Glucose 108 H Calcium Phosphorus Magnesium AST ALT Total Creatine Kinase CK-MB (CK-2) Total Protein Albumin Arterial Blood Glucose 123 H Arterial Blood Ionized Calcium 4.5 L Urine WBC (Auto) Vancomycin Trough Salicylates Acetaminophen Valproic Acid Phenytoin 08/22/20 08/22/20 08/22/20 13:08 13:20 15:30 WBC 12.1 H Hgb RBC 3.27 L Hct MCH 33 H MCHC MCV 98 H RDW Plt Count 442 H [place] % (Auto) Lymph % (Auto) 12.8 L [place] # [place] # (Auto) Seg Neutrophils % 82.3 H Seg Neutrophils # 9.9 H Seg Neuts % (Manual) Lymphocytes % (Manual) Seg Neutrophils # Man Lymphocytes # (Manual) Monocytes # (Manual) Eosinophils # (Manual) PT INR APTT ABG pH POC ABG pCO2 POC ABG pO2 ABG pO2 ABG HCO3 ABG Base Excess ABG Hemoglobin ABG Oxyhemoglobin ABG Sodium ABG Potassium ABG Glucose Oxyhemoglobin Carboxyhemoglobin Sodium Potassium Chloride Carbon Dioxide BUN Creatinine Glucose POC Glucose 144 H Calcium Phosphorus Magnesium AST ALT Total Creatine Kinase CK-MB (CK-2) Total Protein Albumin Arterial Blood Glucose Arterial Blood Ionized Calcium Urine WBC (Auto) Vancomycin Trough Salicylates Acetaminophen Valproic Acid Phenytoin 8.4 L 08/22/20 08/22/20 08/22/20 15:30 18:42 Unknown WBC Hgb RBC Hct MCH MCHC MCV RDW Plt Count [place] % (Auto) Lymph % (Auto) [place] # [place] # (Auto) Seg Neutrophils % Seg Neutrophils # Seg Neuts % (Manual) Lymphocytes % (Manual) Seg Neutrophils # Man Lymphocytes # (Manual) Monocytes # (Manual) Eosinophils # (Manual) PT INR APTT ABG pH POC ABG pCO2 POC ABG pO2 ABG pO2 ABG HCO3 ABG Base Excess ABG Hemoglobin ABG Oxyhemoglobin ABG Sodium ABG Potassium ABG Glucose Oxyhemoglobin Carboxyhemoglobin Sodium Potassium 3.5 L Chloride Carbon Dioxide BUN Creatinine 0.2 L Glucose 148 H POC Glucose 149 H Calcium 7.7 L Phosphorus Magnesium AST 60 H ALT Total Creatine Kinase CK-MB (CK-2) Total Protein 5.3 L Albumin 2.6 L Arterial Blood Glucose Arterial Blood Ionized Calcium Urine WBC (Auto) 7.0 H Vancomycin Trough Salicylates Acetaminophen Valproic Acid Phenytoin 08/23/20 08/23/20 08/23/20 00:19 04:55 06:57 WBC Hgb RBC Hct MCH MCHC MCV RDW Plt Count [place] % (Auto) Lymph % (Auto) [place] # [place] # (Auto) Seg Neutrophils % Seg Neutrophils # Seg Neuts % (Manual) Lymphocytes % (Manual) Seg Neutrophils # Man Lymphocytes # (Manual) Monocytes # (Manual) Eosinophils # (Manual) PT INR APTT ABG pH 7.550 H POC ABG pCO2 POC ABG pO2 ABG pO2 92.2 H ABG HCO3 ABG Base Excess ABG Hemoglobin ABG Oxyhemoglobin ABG Sodium ABG Potassium ABG Glucose Oxyhemoglobin Carboxyhemoglobin Sodium Potassium Chloride Carbon Dioxide BUN Creatinine Glucose POC Glucose 124 H 110 H Calcium Phosphorus Magnesium AST ALT Total Creatine Kinase CK-MB (CK-2) Total Protein Albumin Arterial Blood Glucose Arterial Blood Ionized Calcium Urine WBC (Auto) Vancomycin Trough Salicylates Acetaminophen Valproic Acid Phenytoin 08/23/20 08/23/20 08/23/20 09:39 09:39 11:42 WBC 15.4 H Hgb RBC 3.34 L Hct MCH MCHC MCV RDW Plt Count [place] % (Auto) Lymph % (Auto) [place] # [place] # (Auto) Seg Neutrophils % Seg Neutrophils # Seg Neuts % (Manual) Lymphocytes % (Manual) 12.0 L Seg Neutrophils # Man 10.2 H Lymphocytes # (Manual) Monocytes # (Manual) 0.9 H Eosinophils # (Manual) PT INR APTT ABG pH POC ABG pCO2 POC ABG pO2 ABG pO2 ABG HCO3 ABG Base Excess ABG Hemoglobin ABG Oxyhemoglobin ABG Sodium ABG Potassium ABG Glucose Oxyhemoglobin Carboxyhemoglobin Sodium 136 L Potassium 3.3 L Chloride Carbon Dioxide BUN 19 H Creatinine 0.2 L Glucose 134 H POC Glucose 129 H Calcium 8.0 L Phosphorus Magnesium AST 56 H ALT Total Creatine Kinase CK-MB (CK-2) Total Protein 6.0 L Albumin 2.4 L Arterial Blood Glucose Arterial Blood Ionized Calcium Urine WBC (Auto) Vancomycin Trough Salicylates Acetaminophen Valproic Acid Phenytoin 08/23/20 08/23/20 08/23/20 17:42 20:30 23:56 WBC Hgb RBC Hct MCH MCHC MCV RDW Plt Count [place] % (Auto) Lymph % (Auto) [place] # [place] # (Auto) Seg Neutrophils % Seg Neutrophils # Seg Neuts % (Manual) Lymphocytes % (Manual) Seg Neutrophils # Man Lymphocytes # (Manual) Monocytes # (Manual) Eosinophils # (Manual) PT INR APTT ABG pH POC ABG pCO2 POC ABG pO2 ABG pO2 ABG HCO3 ABG Base Excess ABG Hemoglobin ABG Oxyhemoglobin ABG Sodium ABG Potassium ABG Glucose Oxyhemoglobin Carboxyhemoglobin Sodium Potassium Chloride Carbon Dioxide BUN Creatinine Glucose POC Glucose 138 H 155 H Calcium Phosphorus Magnesium AST ALT Total Creatine Kinase CK-MB (CK-2) Total Protein Albumin Arterial Blood Glucose Arterial Blood Ionized Calcium Urine WBC (Auto) Vancomycin Trough 4.0 L Salicylates Acetaminophen Valproic Acid Phenytoin 08/24/20 08/24/20 08/24/20 03:42 09:56 09:56 WBC 18.6 H Hgb RBC 3.22 L Hct MCH MCHC MCV RDW 15.3 H Plt Count [place] % (Auto) Lymph % (Auto) [place] # [place] # (Auto) Seg Neutrophils % Seg Neutrophils # Seg Neuts % (Manual) 82.0 H Lymphocytes % (Manual) 6.0 L Seg Neutrophils # Man 15.3 H Lymphocytes # (Manual) 1.1 L Monocytes # (Manual) 0.9 H Eosinophils # (Manual) PT INR APTT ABG pH 7.56 H POC ABG pCO2 24.7 L POC ABG pO2 ABG pO2 ABG HCO3 ABG Base Excess ABG Hemoglobin 11.4 L ABG Oxyhemoglobin ABG Sodium 130.4 L ABG Potassium 3.3 L ABG Glucose 106 H Oxyhemoglobin Carboxyhemoglobin Sodium 136 L Potassium 3.4 L Chloride Carbon Dioxide BUN Creatinine 0.2 L Glucose 138 H POC Glucose Calcium 7.6 L Phosphorus Magnesium AST 53 H ALT Total Creatine Kinase CK-MB (CK-2) Total Protein 5.0 L Albumin 2.4 L Arterial Blood Glucose 106 H Arterial Blood Ionized Calcium 4.4 L Urine WBC (Auto) Vancomycin Trough Salicylates Acetaminophen Valproic Acid Phenytoin 08/24/20 08/24/20 08/24/20 11:41 18:02 Unknown WBC Hgb RBC Hct MCH MCHC MCV RDW Plt Count [place] % (Auto) Lymph % (Auto) [place] # [place] # (Auto) Seg Neutrophils % Seg Neutrophils # Seg Neuts % (Manual) Lymphocytes % (Manual) Seg Neutrophils # Man Lymphocytes # (Manual) Monocytes # (Manual) Eosinophils # (Manual) PT INR APTT ABG pH POC ABG pCO2 POC ABG pO2 ABG pO2 ABG HCO3 ABG Base Excess ABG Hemoglobin ABG Oxyhemoglobin ABG Sodium ABG Potassium ABG Glucose Oxyhemoglobin Carboxyhemoglobin Sodium Potassium Chloride Carbon Dioxide BUN Creatinine Glucose POC Glucose 135 H 112 H Calcium Phosphorus Magnesium AST ALT Total Creatine Kinase CK-MB (CK-2) Total Protein Albumin Arterial Blood Glucose Arterial Blood Ionized Calcium Urine WBC (Auto) Vancomycin Trough Salicylates Acetaminophen Valproic Acid Phenytoin 9.2 L 08/24/20 08/25/20 08/25/20 Unknown 00:00 00:00 WBC 17.5 H Hgb 9.9 L RBC 3.01 L Hct 28.7 L MCH 33 H MCHC 35 H MCV RDW 15.5 H Plt Count [place] % (Auto) Lymph % (Auto) 13.2 L [place] # [place] # (Auto) 0.9 H Seg Neutrophils % 79.8 H Seg Neutrophils # 14.0 H Seg Neuts % (Manual) Lymphocytes % (Manual) Seg Neutrophils # Man Lymphocytes # (Manual) Monocytes # (Manual) Eosinophils # (Manual) PT INR APTT ABG pH POC ABG pCO2 POC ABG pO2 ABG pO2 ABG HCO3 ABG Base Excess ABG Hemoglobin ABG Oxyhemoglobin ABG Sodium ABG Potassium ABG Glucose Oxyhemoglobin Carboxyhemoglobin Sodium 133 L Potassium 3.1 L Chloride Carbon Dioxide BUN Creatinine 0.2 L 0.2 L Glucose 116 H POC Glucose Calcium 7.9 L 8.0 L Phosphorus Magnesium AST 58 H ALT Total Creatine Kinase CK-MB (CK-2) Total Protein 5.6 L Albumin 2.0 L Arterial Blood Glucose Arterial Blood Ionized Calcium Urine WBC (Auto) Vancomycin Trough Salicylates Acetaminophen Valproic Acid Phenytoin 08/25/20 08/25/20 08/25/20 00:22 04:19 05:43 WBC Hgb RBC Hct MCH MCHC MCV RDW Plt Count [place] % (Auto) Lymph % (Auto) [place] # [place] # (Auto) Seg Neutrophils % Seg Neutrophils # Seg Neuts % (Manual) Lymphocytes % (Manual) Seg Neutrophils # Man Lymphocytes # (Manual) Monocytes # (Manual) Eosinophils # (Manual) PT INR APTT ABG pH 7.546 H POC ABG pCO2 28.2 L POC ABG pO2 ABG pO2 ABG HCO3 ABG Base Excess ABG Hemoglobin 10.9 L ABG Oxyhemoglobin ABG Sodium 131.6 L ABG Potassium 2.9 L ABG Glucose 120 H Oxyhemoglobin Carboxyhemoglobin Sodium Potassium Chloride Carbon Dioxide BUN Creatinine Glucose POC Glucose 160 H 124 H Calcium Phosphorus Magnesium AST ALT Total Creatine Kinase CK-MB (CK-2) Total Protein Albumin Arterial Blood Glucose 120 H Arterial Blood Ionized Calcium 4.4 L Urine WBC (Auto) Vancomycin Trough Salicylates Acetaminophen Valproic Acid Phenytoin 08/25/20 08/25/20 08/25/20 12:21 17:30 18:13 WBC Hgb RBC Hct MCH MCHC MCV RDW Plt Count [place] % (Auto) Lymph % (Auto) [place] # [place] # (Auto) Seg Neutrophils % Seg Neutrophils # Seg Neuts % (Manual) Lymphocytes % (Manual) Seg Neutrophils # Man Lymphocytes # (Manual) Monocytes # (Manual) Eosinophils # (Manual) PT INR APTT ABG pH POC ABG pCO2 POC ABG pO2 ABG pO2 ABG HCO3 ABG Base Excess ABG Hemoglobin ABG Oxyhemoglobin ABG Sodium ABG Potassium ABG Glucose Oxyhemoglobin Carboxyhemoglobin Sodium Potassium Chloride Carbon Dioxide BUN Creatinine Glucose POC Glucose 131 H 127 H 140 H Calcium Phosphorus Magnesium AST ALT Total Creatine Kinase CK-MB (CK-2) Total Protein Albumin Arterial Blood Glucose Arterial Blood Ionized Calcium Urine WBC (Auto) Vancomycin Trough Salicylates Acetaminophen Valproic Acid Phenytoin 08/26/20 08/26/20 08/26/20 00:05 04:00 05:30 WBC Hgb RBC Hct MCH MCHC MCV RDW Plt Count [place] % (Auto) Lymph % (Auto) [place] # [place] # (Auto) Seg Neutrophils % Seg Neutrophils # Seg Neuts % (Manual) Lymphocytes % (Manual) Seg Neutrophils # Man Lymphocytes # (Manual) Monocytes # (Manual) Eosinophils # (Manual) PT INR APTT ABG pH 7.523 H POC ABG pCO2 POC ABG pO2 ABG pO2 98.2 H ABG HCO3 ABG Base Excess ABG Hemoglobin 10.8 L ABG Oxyhemoglobin ABG Sodium ABG Potassium ABG Glucose Oxyhemoglobin Carboxyhemoglobin Sodium Potassium Chloride Carbon Dioxide BUN Creatinine Glucose POC Glucose 164 H 124 H Calcium Phosphorus Magnesium AST ALT Total Creatine Kinase CK-MB (CK-2) Total Protein Albumin Arterial Blood Glucose Arterial Blood Ionized Calcium Urine WBC (Auto) Vancomycin Trough Salicylates Acetaminophen Valproic Acid Phenytoin 08/26/20 08/26/20 08/26/20 12:27 14:58 14:58 WBC 26.2 H Hgb RBC 3.34 L Hct MCH 33 H MCHC MCV 98 H RDW 16.1 H Plt Count [place] % (Auto) Lymph % (Auto) [place] # [place] # (Auto) Seg Neutrophils % 76.4 H Seg Neutrophils # Seg Neuts % (Manual) Lymphocytes % (Manual) 12.0 L Seg Neutrophils # Man 0.0 L Lymphocytes # (Manual) 0.0 L Monocytes # (Manual) Eosinophils # (Manual) PT INR APTT ABG pH POC ABG pCO2 POC ABG pO2 ABG pO2 ABG HCO3 ABG Base Excess ABG Hemoglobin ABG Oxyhemoglobin ABG Sodium ABG Potassium ABG Glucose Oxyhemoglobin Carboxyhemoglobin Sodium 133 L Potassium 5.2 H D Chloride Carbon Dioxide 21 L BUN Creatinine 0.2 L Glucose 132 H POC Glucose 135 H Calcium 7.8 L Phosphorus Magnesium AST 82 H ALT Total Creatine Kinase CK-MB (CK-2) Total Protein 5.9 L Albumin 1.6 L Arterial Blood Glucose Arterial Blood Ionized Calcium Urine WBC (Auto) Vancomycin Trough Salicylates Acetaminophen Valproic Acid Phenytoin 10/25/20 10/26/20 10/26/20 17:56 00:06 00:46 WBC Hgb RBC Hct MCH MCHC MCV RDW Plt Count [place] % (Auto) Lymph % (Auto) [place] # [place] # (Auto) Seg Neutrophils % Seg Neutrophils # Seg Neuts % (Manual) Lymphocytes % (Manual) Seg Neutrophils # Man Lymphocytes # (Manual) Monocytes # (Manual) Eosinophils # (Manual) PT INR APTT ABG pH POC ABG pCO2 POC ABG pO2 ABG pO2 ABG HCO3 ABG Base Excess ABG Hemoglobin ABG Oxyhemoglobin ABG Sodium ABG Potassium ABG Glucose Oxyhemoglobin Carboxyhemoglobin Sodium 135 L Potassium Chloride Carbon Dioxide 19 L BUN Creatinine < 0.2 L Glucose 141 H POC Glucose 108 H 152 H Calcium 7.8 L Phosphorus Magnesium AST 105 H ALT 72 H Total Creatine Kinase CK-MB (CK-2) Total Protein 5.8 L Albumin 1.7 L Arterial Blood Glucose Arterial Blood Ionized Calcium Urine WBC (Auto) Vancomycin Trough Salicylates Acetaminophen Valproic Acid Phenytoin 08/27/20 08/27/20 08/27/20 03:37 04:10 05:30 WBC 17.0 H Hgb RBC 3.30 L Hct MCH 33 H MCHC MCV 98 H RDW 15.9 H Plt Count [place] % (Auto) Lymph % (Auto) [place] # [place] # (Auto) Seg Neutrophils % Seg Neutrophils # Seg Neuts % (Manual) Lymphocytes % (Manual) Seg Neutrophils # Man 11.7 H Lymphocytes # (Manual) Monocytes # (Manual) 1.0 H Eosinophils # (Manual) 0.5 H PT INR APTT ABG pH 7.471 H POC ABG pCO2 POC ABG pO2 ABG pO2 70.9 L ABG HCO3 ABG Base Excess ABG Hemoglobin 10.0 L ABG Oxyhemoglobin ABG Sodium ABG Potassium ABG Glucose Oxyhemoglobin 94.8 L Carboxyhemoglobin Sodium Potassium Chloride Carbon Dioxide BUN Creatinine Glucose POC Glucose 123 H Calcium Phosphorus Magnesium AST ALT Total Creatine Kinase CK-MB (CK-2) Total Protein Albumin Arterial Blood Glucose Arterial Blood Ionized Calcium Urine WBC (Auto) Vancomycin Trough Salicylates Acetaminophen Valproic Acid Phenytoin 08/27/20 08/27/20 08/27/20 12:02 17:49 23:22 WBC Hgb RBC Hct MCH MCHC MCV RDW Plt Count [place] % (Auto) Lymph % (Auto) [place] # [place] # (Auto) Seg Neutrophils % Seg Neutrophils # Seg Neuts % (Manual) Lymphocytes % (Manual) Seg Neutrophils # Man Lymphocytes # (Manual) Monocytes # (Manual) Eosinophils # (Manual) PT INR APTT ABG pH POC ABG pCO2 POC ABG pO2 ABG pO2 ABG HCO3 ABG Base Excess ABG Hemoglobin ABG Oxyhemoglobin ABG Sodium ABG Potassium ABG Glucose Oxyhemoglobin Carboxyhemoglobin Sodium Potassium Chloride Carbon Dioxide BUN Creatinine Glucose POC Glucose 133 H 121 H 113 H Calcium Phosphorus Magnesium AST ALT Total Creatine Kinase CK-MB (CK-2) Total Protein Albumin Arterial Blood Glucose Arterial Blood Ionized Calcium Urine WBC (Auto) Vancomycin Trough Salicylates Acetaminophen Valproic Acid Phenytoin 08/28/20 08/28/20 08/29/20 05:31 17:45 01:57 WBC 18.7 H Hgb 9.9 L RBC 2.99 L Hct 29.1 L MCH 33 H MCHC MCV RDW 15.9 H Plt Count 449 H [place] % (Auto) Lymph % (Auto) [place] # [place] # (Auto) 1.1 H Seg Neutrophils % 75.4 H Seg Neutrophils # 14.1 H Seg Neuts % (Manual) Lymphocytes % (Manual) Seg Neutrophils # Man Lymphocytes # (Manual) Monocytes # (Manual) Eosinophils # (Manual) PT INR APTT ABG pH POC ABG pCO2 POC ABG pO2 ABG pO2 ABG HCO3 ABG Base Excess ABG Hemoglobin ABG Oxyhemoglobin ABG Sodium ABG Potassium ABG Glucose Oxyhemoglobin Carboxyhemoglobin Sodium Potassium Chloride Carbon Dioxide BUN Creatinine Glucose POC Glucose 106 H 128 H Calcium Phosphorus Magnesium AST ALT Total Creatine Kinase CK-MB (CK-2) Total Protein Albumin Arterial Blood Glucose Arterial Blood Ionized Calcium Urine WBC (Auto) Vancomycin Trough Salicylates Acetaminophen Valproic Acid Phenytoin 08/29/20 08/29/20 08/29/20 01:57 03:43 12:12 WBC Hgb RBC Hct MCH MCHC MCV RDW Plt Count [place] % (Auto) Lymph % (Auto) [place] # [place] # (Auto) Seg Neutrophils % Seg Neutrophils # Seg Neuts % (Manual) Lymphocytes % (Manual) Seg Neutrophils # Man Lymphocytes # (Manual) Monocytes # (Manual) Eosinophils # (Manual) PT INR APTT ABG pH 7.465 H POC ABG pCO2 POC ABG pO2 ABG pO2 96.3 H ABG HCO3 ABG Base Excess ABG Hemoglobin 8.1 L ABG Oxyhemoglobin ABG Sodium ABG Potassium ABG Glucose Oxyhemoglobin Carboxyhemoglobin Sodium 135 L Potassium Chloride Carbon Dioxide 21 L BUN Creatinine < 0.2 L Glucose 114 H POC Glucose 146 H Calcium 7.6 L Phosphorus Magnesium AST 105 H ALT 71 H Total Creatine Kinase CK-MB (CK-2) Total Protein 5.5 L Albumin 1.9 L Arterial Blood Glucose Arterial Blood Ionized Calcium Urine WBC (Auto) Vancomycin Trough Salicylates Acetaminophen Valproic Acid Phenytoin 08/29/20 08/29/20 08/29/20 17:46 22:00 22:00 WBC 17.0 H Hgb 9.9 L RBC 3.02 L Hct 29.0 L MCH 33 H MCHC MCV RDW 15.9 H Plt Count 490 H [place] % (Auto) Lymph % (Auto) [place] # [place] # (Auto) Seg Neutrophils % Seg Neutrophils # Seg Neuts % (Manual) Lymphocytes % (Manual) Seg Neutrophils # Man Lymphocytes # (Manual) Monocytes # (Manual) Eosinophils # (Manual) PT INR APTT ABG pH POC ABG pCO2 POC ABG pO2 ABG pO2 ABG HCO3 ABG Base Excess ABG Hemoglobin ABG Oxyhemoglobin ABG Sodium ABG Potassium ABG Glucose Oxyhemoglobin Carboxyhemoglobin Sodium Potassium Chloride Carbon Dioxide 21 L BUN Creatinine < 0.2 L Glucose 116 H POC Glucose 134 H Calcium 7.2 L Phosphorus Magnesium AST ALT Total Creatine Kinase CK-MB (CK-2) Total Protein Albumin Arterial Blood Glucose Arterial Blood Ionized Calcium Urine WBC (Auto) Vancomycin Trough Salicylates Acetaminophen Valproic Acid Phenytoin 08/30/20 08/30/20 08/30/20 00:47 05:34 09:50 WBC Hgb RBC Hct MCH MCHC MCV RDW Plt Count [place] % (Auto) Lymph % (Auto) [place] # [place] # (Auto) Seg Neutrophils % Seg Neutrophils # Seg Neuts % (Manual) Lymphocytes % (Manual) Seg Neutrophils # Man Lymphocytes # (Manual) Monocytes # (Manual) Eosinophils # (Manual) PT INR APTT ABG pH POC ABG pCO2 POC ABG pO2 ABG pO2 ABG HCO3 ABG Base Excess ABG Hemoglobin ABG Oxyhemoglobin ABG Sodium ABG Potassium ABG Glucose Oxyhemoglobin Carboxyhemoglobin Sodium Potassium Chloride Carbon Dioxide BUN 6 L Creatinine < 0.2 L Glucose 143 H POC Glucose 140 H 123 H Calcium 7.2 L Phosphorus Magnesium AST 77 H ALT 64 H Total Creatine Kinase CK-MB (CK-2) Total Protein 4.5 L Albumin 2.0 L Arterial Blood Glucose Arterial Blood Ionized Calcium Urine WBC (Auto) Vancomycin Trough Salicylates Acetaminophen Valproic Acid Phenytoin 08/30/20 12:35 WBC Hgb RBC Hct MCH MCHC MCV RDW Plt Count [place] % (Auto) Lymph % (Auto) [place] # [place] # (Auto) Seg Neutrophils % Seg Neutrophils # Seg Neuts % (Manual) Lymphocytes % (Manual) Seg Neutrophils # Man Lymphocytes # (Manual) Monocytes # (Manual) Eosinophils # (Manual) PT INR APTT ABG pH POC ABG pCO2 POC ABG pO2 ABG pO2 ABG HCO3 ABG Base Excess ABG Hemoglobin ABG Oxyhemoglobin ABG Sodium ABG Potassium ABG Glucose Oxyhemoglobin Carboxyhemoglobin Sodium Potassium Chloride Carbon Dioxide BUN Creatinine Glucose POC Glucose 135 H Calcium Phosphorus Magnesium AST ALT Total Creatine Kinase CK-MB (CK-2) Total Protein Albumin Arterial Blood Glucose Arterial Blood Ionized Calcium Urine WBC (Auto) Vancomycin Trough Salicylates Acetaminophen Valproic Acid Phenytoin
[2020-08-30] MEDS ORDERED: PHENYTOIN 500 MG in SODIUM CHLORIDE 0.9% 250ML 250 ML IV ONE (17:00)
[2020-08-30 18:08] LABS: ABG Base Excess -1.5 mmol/L (-2.0-3.0); ABG HCO3 22.4 mmol/L (20.0-26.0); ABG Methemoglobin 0.6 % (0.0-1.5); ABG Oxygen Saturation 95.3 % (95.0-99.0); ABG PCO2 34.7 mm Hg; ABG PH 7.428 pH Units (7.350-7.450); ABG PO2 71.6 mm Hg (80.0-90.0)
[2020-08-31] MEDS: VANCOMYCIN 250 MG/10 ML ORAL LIQD PO SCH ×4 (00:36→17:13)
[2020-08-31] MEDS: INSULIN REGULAR, HUMAN 100 UNIT/ML 3ML VIAL SUB-Q SCH ×4 (00:41→17:13)
[2020-08-31] MEDS: HEPARIN 5,000 UNIT/1 ML VIAL SUB-Q SCH ×3 (03:00→17:13)
[2020-08-31] MEDS: metroNIDAZOLE/NS 500 MG/100 ML 500 MG/100 ML BAG IV SCH ×3 (03:05→21:29)
[2020-08-31] MEDS: PHENYTOIN 100 MG in SODIUM CHLORIDE 0.9% 100 ML IV SCH ×3 (06:51→21:44)
[2020-08-31] MEDS: levETIRAcetam 500 MG/5 ML ORAL LIQD PO SCH ×2 (09:02→21:32)
[2020-08-31] MEDS: VALPROIC ACID 250 MG/5 ML ORAL LIQD FEEDTUBE SCH ×2 (09:02→21:31)
[2020-08-31] MEDS: MEGESTROL 400 MG/10 ML ORAL LIQD PO SCH (09:02)
[2020-08-31] MEDS: MIDODRINE 5 MG TAB PO SCH ×3 (09:03→20:17)
[2020-08-31] MEDS: LACOSAMIDE 100 MG TAB PO SCH ×2 (09:03→21:32)
[2020-08-31] MEDS: LANSOPRAZOLE 30 MG SOLUTAB FEEDTUBE SCH (09:03)
[2020-08-31] MEDS: SODIUM CHLORIDE 0.9% 1000 ML 1,000 ML IV SCH (09:04)
--- NOTE | 2020-08-31 10:30 | Progress Note ---
Assessment and Plan Assessment and plan: 1-year-old female patient with schizoaffective disorder with active hallucinations and confusion presented from [place] [facility] for altered mental status and poor intake on 07/13. She was found to have rhabdomyolysis and electrolyte imbalances. She then developed C. difficile diarrhea and she has completed her regimen of p.o. vancomycin from 07/20-08/03. RN stated patient had to liquid bowel movements today however patient is on vancomycin. Per policy if patient has the decreased BMs she was not a C. difficile sample. At the time of my exam this afternoon the patient was in her usual state with no focal seizure activity noted. However this evening when neurology examined her she was noted to have another seizure and was given Ativan IV. Antiepileptic medications adjusted. Dr. Nails spoke to Dr. Taylor about need to transfer for continuous EEG. He also recommended every hour neurochecks and intubation. Stat ABG ordered. 07/13; patient's CK levels trending down on 1678, continue IV hydration patient is more alert at times, hallucinating, Noncommunicative, severe hypokalemia, replace per protocol 07/14; potassium level significantly improved today to 3.2, replenish per protocol. CK levels trending down 828, continue IV hydration, monitor electrolytes 07/15; patient refused potassium yesterday today potassium levels again 2.7 We will add KCl to IV fluids, and IV K riders, monitor electrolytes. CK level 425. Refusing to eat confused noncommunicative. Possible inpatient psych admission when medically stable 07/16; rhabdomyolysis resolved, mild electrolyte imbalances, if corrected medical ly stable for inpatient psych placement 07/17: replete K and phosphate. repeat CBc BMP tomorrow. White count needs to be < 10 for inpt psych admission 07/18: cont to have mildly elevated white count, c/o loose stool. will check for C. def - start flagyl and cipro 07/19: White count normal today. change medications to Po. medically stable to go for inpt psych unit. 07/20; positive for C. def. patient not eating properly, refusing meds time to time. Psych now recommended outpt f/u. CM working on placement. Patient remains nonverbal, does not follow any commend and not giving any personal info. 07/21; K 2.0 today, cont to replete, follow BMP, patient remains nonverbal and not cooperative. refuses to eat and meds. cont d51/2NS. if condition doesnot improve will consider TF 07/22: Potassium level persistently remains low, magnesium 1.6 today. Will replete magnesium and potassium. Patient refusing meds and not eating at all per RN report. Totally noncooperative during the encounternot respond to any question. Keeps her eye closing and covering her face with her forearm. Will order for tube feeding and Dobbhoff tube. Continue to follow. We will also add Megace to boost appetite. 07/23: started on TF, follow BMP, change iv fluid to 1/2 NS. patient remains nonverbal 07/24; clinically unchanged, replete K, iv fluid and TF. reconsult psych as patient remains in catatonic phase 07/25: psych recommendation noted, continue tube feeding, continue to replete electrolytes as needed, follow BMP. I strongly believe her severe electrolytes derangement and encephalopathy related to her catatonia, poor oral intake other than any underlying medical conditions. There is no family contact in file, no home address available, patient appeared to be unfunded. manager nicu working on placement. 07/26: psych recommendation noted, continue tube feeding, continue to replete electrolytes as needed, follow BMP. I strongly believe her severe electrolytes derangement and encephalopathy related to her catatonia, poor oral intake other than any underlying medical conditions. There is no family contact in file, no home address available, patient appeared to be unfunded. manager nicu working on placement. 07/27; continue with tube feeding. There is no family contact in file, no home address available, patient appeared to be unfunded. Case management is following. 07/28; patient still on tube feeding, patient is noncommunicative. I believe her condition is related to her catatonia. Psych is following her. Currently her electrolytes are corrected. There is no family contact in file, no home address available, patient appeared to be unfunded. Case management is following. 07/29 patient is nonverbal, eyes open does not follow simple commands,, still having low-grade fever T-max 100 degrees,, lab results reviewed discussed with RN- still has loose stools, case hardener notes reviewed, unable to contact family 07/30 no acute events overnight, diarrhea improved, stop IV fluids, disposition to be decided 07/31: disciplinary hearing officer presented to the bedside to attempt to fingerprint the patient to identify her. However his machine was not working 08/01:' Per case hardener note [facility] [employer] has been contacted to help in identifying the patient. On officer is to report to bedside and was instructed to call the case hardener upon arrival. 08/02/2020 still has diarrhea 08/03/2020 diarrhea improving. Today is the last day of vancomycin 08/04/2020 patient has no diarrhea 08/05: slot shift supervisor RN reported patient had a seizure overnight, Ativan was ordered however was not administered because according to the dayshift RN he was reported that the patient "did not need the medication because she was not having a seizure at the moment". Patient remained hyponatremic and hypochloremic and after conversing with the nurse patient was not getting her prescribed dose FWF for hyponatremia which was corrected 08/06: Electrolyte imbalance discontinue, patient still catatonic 08/07: Electrolyte imbalances continue, to physician consent for PEG tube obtained and GI consulted 08/08: PEG scheduled for 08/09 08/09: s/p PEG placement with GI, hyperkalemic (potassium 5.2) s/p SD Kayexalate. 08/11; patient is on PEG tube feeding. C. difficile treated and resolved. Patient still in catatonic state. Pending guardianship. 08/12/2020 patient on PEG tube feeding. Guardianship pending. Pending placement. 08/13: no aucte events reported overnight, gaurdenship pending. 08/14/20: quality and futility of care is questionable, patient not following any commands, pupillary reflex noted, neurology and ethics consult placed 08/15: Neurology recommended LP, EEG, CT head and MRI brain with and without contrast which are all pending. 08/16: Physician consult obtained for LP which was completed today. Bilateral lower extremity x-rays noted no metal and a physician consent was obtained for contrast therefore MRI brain pending. EEG still pending. Patient again has hypochloremia and hyponatrema 08/17: status epilepticus noted on EEG, Neurology recommends transfer for continues EEG. 08/19: seizures subsided. No active seizures. Pending placement. 08/20: CXR shows possible PNA, initiated on cefepime and vancomycin 08/21. Discussed with neurologist. Patient needs to be transferred to a tertiary center for continuous EEG monitoring Transfer to [facility] initiated. As per [place], case will be sent to and earliest time for possible transfer will be tomorrow. In the meantime, patient will need intubation and sedation for status as per neurology. Critical care consult placed. Vent orders placed. Anesthesia paged. Patient will be going to the ICU. Transfer order placed. Discussed with anesthesia Dr Hawthorne 6:50 PM and told him why patient needs to be intubated immediately. Apparently, patient transfer orders still in progress and patient still on the floors during his evaluation at bedside. Patient cannot be intubated or while on the floor as per anesthesia MD. Patient is to go to ICU and then intubated. 08/21 transfer to [facility] initiated today as patient still having seizure episodes. -08/23. I discussed with transfer center at [facility] and neurologist Dr. Trivedi requested that latest EEG be reviewed by telemetry neurology. 08/22. Overnight events noted. Patient intubated this AM and started on versed. Discussed with [facility], case is still being reviewed. Called [facility] and was told facility do not have continuous EEG monitoring. She remains on multiple seizure medications. Continue BP medications. Neurology is following closely. 08/23. Patient seen and examined at bedside this morning. Patient has been denied transfer by [facility] as no neuro critical care ICU available. [facility] only accepting patients with acute stroke, gabriel or trauma. Placed a call to [facility] and gave details today. Awaiting callback. Otherwise patient remains sedated. EEG performed yesterday shows significant improvement in status epilepticus. Neurology to review today. 08/24. I discussed with transfer center at [facility] and neurologist Dr. Trivedi requested that latest EEG be reviewed by teleneurology prior to consideration. As patient seizures have subsided, weaning will be on a lternative. Neurology notes reviewed-patient to be maintained on sedation for now until it is safe too wean (needs continuous EEG monitoring for this]. I called back transfer center at [facility] was told there are no beds at this time. Patient noted to have Fever overnight. Also has loose watery stools and procalcitonin is elevated. She has been on antibiotics for 4 days now. Repeat chest x-ray shows no new pneumonia. Due to diarrhea, will DC antibiotics for now. Send stool for C. difficile as she had C. difficile earlier during this admission. We will consult ID if C. difficile is positive. Will maintain on current medications for now 08/25. C diff is positive. Started on PO vancomycin. ID consulted. DCed IV antibiotics. Monitor WBC. Will get abdominal CT if no improvement is noted. Called [facility] and [facility] but no beds available today. Neurology recommendations appreciated. Will keep sedatives at same dose. 08/26. Patient needs continuous EEG monitoring. [facility] and [facility] but still have no beds available. [facility] is not accepting patients except Acute stroke, gabriel and trauma patients. [facility] does not have contin uous EEG monitoring. She is still on low dose lorazepam. Discussed with CM to find other hospitals where patient can have the EEG monitoring. In the mean time, patient may need to have titration of sedatives but this may not be possible as per neurology. Neurology not available this to assist. Plan to discuss alternatives with neurology on Thursday. Otherwise, she is still on low dose dopamine and PO vancomycin for recurrent clostridium difficile infection. ID is on board. AM labs not drawn. Labs reordered 08/28: Continues on ventilatory support, awaiting transfer for continouse EEG. 08/29: Will add midodrine and see if we can wean off dobutamin, discussed with [facility] and [facility], no bed available, will reconsult Neurology for daily Neurology eval. Discussed with Respiratory to see if we can wean off ventilator 08/30: Reconsulting Neurology, discussed with Nursings staff to wean off dobutamin since midodrine has been started and MAP this am is 70. Also wean Ativan. Awaiting Ethics committee. Await bed availablity for transfer to more advanced facility as this patient will benefit from a more specalized care. 08/31: Patient remains unresponsive on Ativan drip being used due to continuous seizures. Neurology did evaluate the patient believes that encephalopathy secondary to status epilepticus. We still do not have an accepting facility as of facility around as on diversion. Per neurology and another EEG is to be done today. Also Dilantin trough level to be obtained this morning. Goal is to keep it between 10 and 20. Last EEG that was done according to reading from neurology states that they still see left anterior temporal region epileptiform type activities with burst suppression pattern delta slowing. They did give additional dose of fosphenytoin 500 mg and continue current dose of Dilantin 200 mg 3 times a day. The recommendation is still for higher level of care with continuous EEG to see if patient develops positive suppression pattern for 24 hours and then gradually reduce the dose of Ativan or Versed or propofol. Patient currently is not on propofol or Versed just Ativan. They will feel that reducing the Ativan dose while monitoring the EEG will help see if this seizures are suppressed. Patient remains in critical care ICU at this point. Continues to have seizures despite being on Vimpat Keppra Depakote Dilantin and Ativan drip which will begin to gradually decrease per recommendation from the receiv ing facility to see if there is any changes. (1) Acute metabolic encephalopathy secondary to status epilepticus Current Visit: Yes Status: Acute Qualifiers: Altered mental status type: unspecified Qualified Code(s): R41.82 - Altered mental status, unspecified Plan to address problem: Possible continuous seizure. May be exacerbated by underlying infections in the past and/or schizoaffective disorder. (2) DVT prophylaxis Current Visit: Yes Status: Acute (3) Status epilepticus Current Visit: Yes Status: Acute Plan to address problem: Plan to address problem: RN reported seizure activity on on 08/05; Ativan was ordered however was not administered because according to the dayshift RN he was reported that the patient "did not need the medication because she was not having a seizure at the moment". After reviewing nursing notes it is noted that she had reported seizure activity by RN on 08/12 and was given Ativan. Hospitalist was informed No seizure activity reported since Neurology consulted EEG no no status epilepticus Pt is on depakote 1000 mg bid; Keppra 1500 mg bid; vimpat 200 mg iv q12; and now initiated on Fosphentoin (load and maintenance) despite drug-drug interaction on 08/21 per neurology Per neurology: Patient will require transfer to a facility w/ cEEG monitoring for higher level of care as EEG here is intermittently available and intermittently read at present; increase depakote to 1000 mg bid (bolus of 500 mg via peg); increase Keppra to 1500 mg bid; initiate vimpat 200 mg iv q12; s/p Ativan 1 mg IV x 1 dose given; pending MRI Brain w/ wo contrast. Recommend q1 hour neurochecks. 08/19 it was noted that patient's seizure activity subsided therefore was not transferred to tertiary care 08/21 noted to have a focal seizure when neurology was examining the patient, given Ativan x1 and started on a third antiepileptic. Transfer to [facility] reinitiated today. Discussed [facility] neurology - patient will need intubation and sedation. Discussed with anesthesia and mechanical engineering technician. Transfer order placed. Vent bundle ordered. -08/22. Patient intubated this AM. Had another episode of seizure early AM as per RN prior to intubation. Neurology currently following. Patient is on Depakote, Keppra, fosphenytoin and Vimpat. -08/23. EEG shows improvement after sedation and intubation. Teleneurology following -08/24 - 08/25. No seizures noted. Still on lorazepam drip. Will order EEG repeat. -08/26. No beds at [facility], [facility]. [facility] has no continuous EEG monitor. [facility] only acceptinig stroke patients. Discussed with CM to see if he can find hospitals that have EEG capability here in [place]. 08/26/2020 received call from [facility] about reconnecting with transfer service from [facility] [phone]. We will follow-up in a.m. to see if they have a bed for continuous EEG capabilities. Otherwise patient remains unresponsive nonverbal at baseline. Intubated. (4) Schizoaffective disorder Current Visit: Yes Status: Chronic Plan to address problem: Haldol as needed antipsychotic medications. (5) C. difficile diarrhea Current Visit: Yes Status: Resolved Plan to address problem: Continue vancomycin for an additional 4 times a day for total of 10 days. No loose stool today. (6) Rhabdomyolysis Current Visit: Yes Status: Resolved Qualifiers: Rhabdomyolysis type: non-traumatic Qualified Code(s): M62.82 - Rhabdomyolysis Plan to address problem: Resolving with aggressive IV fluid hydration before. (7) Hyponatremia Current Visit: Yes Status: Resolved Plan to address problem: Admit sodium 142 07/31 134, slight hyponatremia at this time no intervention needed, 08/01 Na 136 however she has remained hyponatremic Hydration with free water flush; 50ml q6 hours while hyponatremic-> informed RN on 08/06 08/07 sodium 136 08/09 sodium 135 Trend BMP 08/10 sodium 141 08/15 sodium 134; informed RN FWF are ordered to be 50 mL every 6 while hyponatremic 08/16 sodium 131, nutrition notes reviewed and FWF seems to be changed 100 mL q4 hours 08/17 sodium 134 08/20 hyponatremia resolved 08/27/2020 remains stable. (8) Metabolic encephalopathy Current Visit: Yes Status: Acute Plan to address problem: kim to address problem: Multifactorial , schizoaffective disorder and withdrawal seizures 07/11 CT head Normal nonenhanced CT scan of the brain Patient came from [facility], psych evaluation noted Psych recommends outpt f/u 08/14 neurology consult: Recommends obtaining EEG, LP, CTA head, MRI brain with and without contrast 08/15 CT head shows no acute abnormalities and no changes since 07/11/202008/16: LP under fluoroscopy completed. CSF analysis shows no evidence of encephalitis 08/16 MRI brain with/without contrast pending: Shows no acute abnormalities Supportive care -Now on multiple antiseizure medications. Intubated and sedated. Plan for transfer to [address] [place] [address] initiated (9) Discharge planning issues Current Visit: Yes Status: Acute Plan to address problem: Patient's identity is not confirmed [facility] Department has been contacted to aid in identification however unsuccessful [facility] Department have been contacted Inpatient records requested from [facility] again on 08/02 Risk-management made aware of patient again on 08/02 Patient identification confirmed with [facility] Department Attempted to contact children, CM has an email address and an email was sent over the weekend however there is been no reply 08/07: 2 physician consent for PEG tube obtained and GI consulted for PEG tube placement 08/09: PEG tube placed, resume tube feeds within 4 hours [facility] in the process of assuming guardianship over the patient for placement 08/14 ethics consulted 08/17 Dr. Nails requested a transfer to another facility for continuous EEG as the patient The high probability of a clinically significant, sudden or life threatening deterioration of the [RESPIRATORY, NEUROLOGY] system(s) required my full and direct attention, intervention and personal management. The aggregate critical care time was [35] minutes. This time is in addition to time spent performing reported procedures but includes the following: [X] Data Review and interpretation [X] Patient assessment and monitoring of vital signs [X] Documentation [X] Medication orders and management may be in status epilepticus. Patient seizures reportedly improved and transfer was initiated History Interval history: patient seen and examined, remains on full ventilatory support and on Ativan drip. Hospitalist Physical - Physical exam Narrative exam: General appearance: Present: no acute distress, cachectic, other, orally intubated - EENT ENT: clear oral mucosa, other (Unresponsive) Ears: bilateral: normal - Neck Neck: supple, normal ROM - Respiratory Respiratory effort: normal Respiratory: bilateral: CTA, diminished, rales, rhonchi - Breasts Breasts: normal - Cardiovascular Rhythm: regular Heart Sounds: Present: S1 & S2. Absent: gallop, rub Extremities: pulses intact, No edema, normal color, Full ROM - Gastrointestinal General gastrointestinal: Present: soft, non-tender, non-distended, hypoactive bowel sounds, other (Scaphoid) - Genitourinary Female genitourinary: normal - Integumentary Integumentary: clear, warm, dry - Musculoskeletal Musculoskeletal: other (Debility) - Neurologic Neurologic: unresponsive - Psychiatric Psychiatric: other (Unresponsive) - Constitutional Vitals: Temp Pulse Resp BP Pulse Ox 98.1 F 85 22 123/72 99 08/31/20 08:00 08/31/20 09:16 08/31/20 09:16 08/31/20 09:16 08/31/20 09:16 General appearance: Present: no acute distress, cachectic, other HEART Score - HEART Score Risk factors: 1-2 risk factors Troponin: Troponin T < 0.010 ng/mL (0.00-0.029) 07/11/20 21:17 Troponin: < normal limit - Critical Actions Critical Actions: 0-3 pts:0.9-1.7%risk of adverse cardiac event.Candidate for discharge Results - Labs CBC & Chem 7: 08/29/20 22:00 08/30/20 09:50 Labs: Laboratory Last Values WBC 17.0 K/mm3 (4.5-11.0) H 08/29/20 22:00 RBC 3.02 M/mm3 (3.65-5.03) L 08/29/20 22:00 Hgb 9.9 gm/dl (10.1-14.3) L 08/29/20 22:00 Hct 29.0 % (30.3-42.9) L 08/29/20 22:00 MCV 96 fl (79-97) 08/29/20 22:00 MCH 33 pg (28-32) H 08/29/20 22:00 MCHC 34 % (30-34) 08/29/20 22:00 RDW 15.9 % (13.2-15.2) H 08/29/20 22:00 Plt Count 490 K/mm3 (140-440) H 08/29/20 22:00 Lymph % (Auto) 17.0 % (13.4-35.0) 08/29/20 01:57 [place] % (Auto) 6.1 % (0.0-7.3) 08/29/20 01:57 Eos % (Auto) 1.1 % (0.0-4.3) 08/29/20 01:57 Baso % (Auto) 0.4 % (0.0-1.8) 08/29/20 01:57 Lymph # (Auto) 3.2 K/mm3 (1.2-5.4) 08/29/20 01:57 [place] # (Auto) 1.1 K/mm3 (0.0-0.8) H 08/29/20 01:57 Eos # (Auto) 0.2 K/mm3 (0.0-0.4) 08/29/20 01:57 Baso # (Auto) 0.1 K/mm3 (0.0-0.1) 08/29/20 01:57 Add Manual Diff Complete 08/27/20 03:37 Total Counted 100 08/27/20 03:37 Seg Neutrophils % 75.4 % (40.0-70.0) H 08/29/20 01:57 Seg Neuts % (Manual) 69.0 % (40.0-70.0) 08/27/20 03:37 Band Neutrophils % 5.0 % 08/27/20 03:37 Lymphocytes % (Manual) 14.0 % (13.4-35.0) 08/27/20 03:37 Reactive Lymphs % (Man) 0 % 08/27/20 03:37 Monocytes % (Manual) 6.0 % (0.0-7.3) 08/27/20 03:37 Eosinophils % (Manual) 3.0 % (0.0-4.3) 08/27/20 03:37 Basophils % (Manual) 0 % (0.0-1.8) 08/27/20 03:37 Metamyelocytes % 3.0 % 08/27/20 03:37 Myelocytes % 0 % 08/27/20 03:37 Promyelocytes % 0 % 08/27/20 03:37 Blast Cells % 0 % 08/27/20 03:37 Nucleated RBC % Not Reportable 08/27/20 03:37 Seg Neutrophils # 14.1 K/mm3 (1.8-7.7) H 08/29/20 01:57 Seg Neutrophils # Man 11.7 K/mm3 (1.8-7.7) H 08/27/20 03:37 Band Neutrophils # 0.9 K/mm3 08/27/20 03:37 Lymphocytes # (Manual) 2.4 K/mm3 (1.2-5.4) 08/27/20 03:37 Abs React Lymphs (Man) 0.0 K/mm3 08/27/20 03:37 Monocytes # (Manual) 1.0 K/mm3 (0.0-0.8) H 08/27/20 03:37 Eosinophils # (Manual) 0.5 K/mm3 (0.0-0.4) H 08/27/20 03:37 Basophils # (Manual) 0.0 K/mm3 (0.0-0.1) 08/27/20 03:37 Metamyelocytes # 0.5 K/mm3 08/27/20 03:37 Myelocytes # 0.0 K/mm3 08/27/20 03:37 Promyelocytes # 0.0 K/mm3 08/27/20 03:37 Blast Cells # 0.0 K/mm3 08/27/20 03:37 Pathologist Review 08/26/20 14:58 WBC Morphology Not Reportable 08/27/20 03:37 Hypersegmented Neuts Not Reportable 08/27/20 03:37 Hyposegmented Neuts Not Reportable 08/27/20 03:37 Hypogranular Neuts Not Reportable 08/27/20 03:37 Smudge Cells Not Reportable 08/27/20 03:37 Toxic Granulation Not Reportable 08/27/20 03:37 Toxic Vacuolation Not Reportable 08/27/20 03:37 Dohle Bodies Not Reportable 08/27/20 03:37 Pelger-Huet Anomaly Not Reportable 08/27/20 03:37 Rashad Rods Not Reportable 08/27/20 03:37 Platelet Estimate Consistent w auto 08/27/20 03:37 Clumped Platelets Not Reportable 08/27/20 03:37 Plt Clumps, EDTA Not Reportable 08/27/20 03:37 Large Platelets Not Reportable 08/27/20 03:37 Giant Platelets Not Reportable 08/27/20 03:37 Platelet Satelliting Not Reportable 08/27/20 03:37 Plt Morphology Comment Not Reportable 08/27/20 03:37 RBC Morphology Not Reportable 08/27/20 03:37 Dimorphic RBCs Not Reportable 08/27/20 03:37 Polychromasia Not Reportable 08/27/20 03:37 Hypochromasia Not Reportable 08/27/20 03:37 Poikilocytosis Not Reportable 08/27/20 03:37 Anisocytosis Few 08/27/20 03:37 Microcytosis Not Reportable 08/27/20 03:37 Macrocytosis Not Reportable 08/27/20 03:37 Spherocytes Not Reportable 08/27/20 03:37 Pappenheimer Bodies Not Reportable 08/27/20 03:37 Sickle Cells Not Reportable 08/27/20 03:37 Target Cells Few 08/27/20 03:37 Tear Drop Cells Not Reportable 08/27/20 03:37 Ovalocytes Not Reportable 08/27/20 03:37 Helmet Cells Not Reportable 08/27/20 03:37 [place] Bodies Not Reportable 08/27/20 03:37 [place] Rings Not Reportable 08/27/20 03:37 [place] Cells Not Reportable 08/27/20 03:37 Bite Cells Not Reportable 08/27/20 03:37 Crenated Cell Not Reportable 08/27/20 03:37 Elliptocytes Not Reportable 08/27/20 03:37 Acanthocytes (Spur) Not Reportable 08/27/20 03:37 Rouleaux Not Reportable 08/27/20 03:37 Hemoglobin C Crystals Not Reportable 08/27/20 03:37 Schistocytes Not Reportable 08/27/20 03:37 Malaria parasites Not Reportable 08/27/20 03:37 Ed Bodies Not Reportable 08/27/20 03:37 Hem Pathologist Commnt No 08/27/20 03:37 PT 12.5 Sec. (12.2-14.9) 08/15/20 15:26 INR 0.92 (0.87-1.13) 08/15/20 15: APTT 20.4 Sec. (24.2-36.6) L 08/15/20 15:26 ABG pH 7.428 pH Units (7.350-7.450) 08/30/20 17:50 POC ABG pCO2 28.2 mmHg (32.0-48.0) L 08/25/20 04:19 ABG pCO2 34.7 mm Hg 08/30/20 17:50 POC ABG pO2 88.3 mmHg (83-108) 08/25/20 04:19 ABG pO2 71.6 mm Hg (80.0-90.0) L 08/30/20 17:50 POC ABG HCO3 23.9 08/25/20 04:19 ABG HCO3 22.4 mmol/L (20.0-26.0) 08/30/20 17:50 ABG O2 Saturation 95.3 % (95.0-99.0) 08/30/20 17:50 ABG O2 Content 14.7 (0.0-44) 08/30/20 17:50 POC ABG Base Excess 2.1 08/25/20 04:19 ABG Base Excess -1.5 mmol/L (-2.0-3.0) 08/30/20 17:50 ABG Hemoglobin 11.1 gm/dl (12.0-16.0) L 08/30/20 17:50 ABG Oxyhemoglobin 98.9 (94-98) H 08/22/20 11:18 ABG Carboxyhemoglobin 1.3 % (0.0-5.0) 08/30/20 17:50 ABG Methemoglobin 0.6 % (0.0-1.5) 08/30/20 17:50 ABG Sodium 131.6 mmol/L (136.0-145.0) L 08/25/20 04:19 ABG Potassium 2.9 mmol/L (3.40-4.50) L 08/25/20 04:19 ABG Chloride 104.0 mmol/L (98-107) 08/25/20 04:19 ABG Glucose 120 mg/dL (65-95) H 08/25/20 04:19 Oxyhemoglobin 93.5 % (95.0-99.0) L 08/30/20 17:50 Carboxyhemoglobin 0.4 (0.5-1.5) L 08/22/20 11:18 FiO2 25 % 08/30/20 17:50 Sodium 139 mmol/L (137-145) 08/30/20 09:50 Potassium 4.2 mmol/L (3.6-5.0) 08/30/20 09:50 Chloride 105.1 mmol/L (98-107) 08/30/20 09:50 Carbon Dioxide 25 mmol/L (22-30) 08/30/20 09:50 Anion Gap 13 mmol/L 08/30/20 09:50 BUN 6 mg/dL (7-17) L 08/30/20 09:50 Creatinine < 0.2 mg/dL (0.6-1.2) L 08/30/20 09:50 Estimated GFR > 60 ml/min 08/30/20 09:50 BUN/Creatinine Ratio 30 % 08/30/20 09:50 Glucose 143 mg/dL (65-100) H 08/30/20 09:50 POC Glucose 90 mg/dL (70-105) 08/31/20 05:43 Lactic Acid 1.50 mmol/L (0.7-2.0) 07/12/20 00:04 Phosphorus 3.10 mg/dL (2.5-4.5) 07/24/20 06:00 Calcium 7.2 mg/dL (8.4-10.2) L 08/30/20 09:50 Direct Bilirubin < 0.2 mg/dL (0-0.2) 07/13/20 09:33 Magnesium 2.30 mg/dL (1.7-2.3) 08/26/20 14:58 Total Bilirubin < 0.20 mg/dL (0.1-1.2) 08/30/20 09:50 Total Creatine Kinase 102 units/L (30-135) 07/17/20 05:21 CK-MB (CK-2) 9.2 ng/mL (0.0-4.0) H 07/12/20 15:13 AST 77 units/L (5-40) H 08/30/20 09:50 ALT 64 units/L (7-56) H 08/30/20 09:50 CK-MB (CK-2) Rel Index 0.4 (0-4) 07/12/20 15:13 Alkaline Phosphatase 67 units/L (35-129) 08/30/20 09:50 Troponin T < 0.010 ng/mL (0.00-0.029) 07/11/20 21:17 Ammonia 50.0 umol/L (25-60) 08/23/20 20:30 Total Protein 4.5 g/dL (6.3-8.2) L 08/30/20 09:50 Albumin 2.0 g/dL (3.9-5) L 08/30/20 09:50 Albumin/Globulin Ratio 0.8 % 08/30/20 09:50 Procalcitonin 0.23 ng/mL (<0.15) 08/30/20 09:50 Arterial Blood Glucose 120 mg/dL (65-95) H 08/25/20 04:19 Arterial Blood Ionized Calcium 4.4 mg/dL (4.6-5.3) L 08/25/20 04:19 Urine Color Yellow (Yellow) 08/22/20 Unknown Urine Turbidity Clear (Clear) 08/22/20 Unknown Urine pH 7.0 (5.0-7.0) 08/22/20 Unknown Ur Specific [place] 1.017 (1.003-1.030) 08/22/20 Unknown Urine Protein <15 mg/dl mg/dL (Negative) 08/22/20 Unknown Urine Glucose (UA) Neg mg/dL (Negative) 08/22/20 Unknown Urine Ketones Tr mg/dL (Negative) 08/22/20 Unknown Urine Blood Neg (Negative) 08/22/20 Unknown Urine Nitrite Neg (Negative) 08/22/20 Unknown Urine Bilirubin Neg (Negative) 08/22/20 Unknown Urine Urobilinogen < 2.0 mg/dL (<2.0) 08/22/20 Unknown Ur Leukocyte Esterase Neg (Negative) 08/22/20 Unknown Urine WBC (Auto) 7.0 /HPF (0.0-6.0) H 08/22/20 Unknown Urine RBC (Auto) 1.0 /HPF (0.0-6.0) 08/22/20 Unknown U Epithel Cells (Auto) 3.0 /HPF (0-13.0) 08/22/20 Unknown Urine Mucus Few /HPF 08/22/20 Unknown CSF Appearance Clear 08/16/20 14:18 CSF Color Colorless 08/16/20 14:18 CSF WBC 6 /mm3 (1-10) 08/16/20 14:18 CSF RBC 4 /mm3 (0-0) 08/16/20 14:18 CSF Seg Neutrophils 0 % (0-6) 08/16/20 14:18 CSF Lymphocytes % 90.0 % (40-80) 08/16/20 14:18 CSF Reactive Lymphs 0 % 08/16/20 14:18 CSF Monocytes % 10.0 % (15-45) 08/16/20 14:18 CSF Eosinophils % 0 % 08/16/20 14:18 CSF Basophils 0 % 08/16/20 14:18 CSF Pathologist Review C 08/16/20 14:18 CSF Glucose 60 mg/dL 08/16/20 14:18 CSF Total Protein 94 mg/dL 08/16/20 14:18 CSF VDRL Nonreactive (Nonreactive) 08/16/20 14:18 Vancomycin Trough 4.0 ug/mL (5.0-20.0) L 08/23/20 20:30 Salicylates < 0.3 mg/dL (2.8-20.0) L 07/11/20 21:17 Urine Opiates Screen Presumptive negative 07/11/20 Unknown Urine Methadone Screen Presumptive negative 07/11/20 Unknown Acetaminophen 5.0 ug/mL (10.0-30.0) L 07/11/20 21:17 Ur Barbiturates Screen Presumptive negative 07/11/20 Unknown Ur Phencyclidine Scrn Presumptive negative 07/11/20 Unknown Phenytoin 7.7 ug/mL (10.0-20.0) L 08/31/20 04:30 Ur Amphetamines Screen Presumptive negative 07/11/20 Unknown Valproic Acid 55.9 ug/mL (50-100) 08/24/20 Unknown U Benzodiazepines Scrn Presumptive negative 07/11/20 Unknown Urine Cocaine Screen Presumptive negative 07/11/20 Unknown U Marijuana (THC) Screen Presumptive negative 07/11/20 Unknown Drugs of Abuse Note Disclamer 07/11/20 Unknown C. difficile Tox (PCR) Positive (Negative) 08/24/20 Unknown Coronavirus (PCR) Negative (Negative) 08/23/20 10:18 Enterovirus (PCR) Cmmt See scanned result 08/16/20 14:18 HSV I DNA PCR See scanned result 08/16/20 14:18 HSV II DNA PCR See scanned result 08/16/20 14:18 VZV (Qnt-PCR) See scanned result 08/16/20 14:18 Ledesma/IV: Voiding Method Indwelling Catheter IV Catheter Type [Right Upper PICC Line arm] IV Catheter Type [Right INT / Saline Lock Antecubital] IV Catheter Type [Left Forearm INT / Saline Lock ] IV Catheter Type [Right Hand] INT / Saline Lock IV Catheter Type [Right INT / Saline Lock Forearm] IV Catheter Type [Left Hand] INT / Saline Lock Active Medications - Current Medications Current Medications: Generic Name Dose Route Start Last Admin Trade Name Freq PRN Reason Stop Dose Admin Acetaminophen 650 mg 08/24/20 09:00 08/24/20 15:06 Tylenol PO 650 mg Q4H PRN Administration TEMP > 101 Lipase/Protease/Amylase 1 each 07/22/20 07:44 08/14/20 10:[address] 10,500 Unit FEEDTUBE 1 each PRN PRN Administration For Clogged Feeding Tube Haloperidol Lactate 5 mg 07/18/20 13:15 07/21/20 22:06 Haldol IM 5 mg Q6H PRN Administration Agitation Heparin Sodium (Porcine) 5,000 unit 07/12/20 10:00 08/31/20 09:03 Heparin SUB-Q 5,000 unit Q8H KEITH Administration Hydrophilic Ointment 1 applic 08/21/20 18:21 Vaseline Lip Therapy TP Q2HR PRN Dry Lips Propofol 1,000 mg in 100 mls @ 1.524 mls/hr 08/21/20 20:00 Diprivan 10 Mg/Ml IV TITR KEITH Protocol 5 MCG/KG/MIN Phenytoin 100 mg/ Sodium 102 mls @ 408 mls/hr 08/22/20 10:00 08/31/20 06:51 Chloride IV 408 mls/hr Q8HR KEITH Administration Lorazepam 100 mg/ Sodium 100 mls @ 1 mls/hr 08/22/20 12:00 08/31/20 08:32 Chloride/ Miscellaneous IV 0 mg/hr Information TITR KEITH 0 mls/hr Titration Protocol 1 MG/HR Sodium Chloride 1,000 mls @ 75 mls/hr 08/26/20 08:30 08/31/20 09:04 Nacl 0.9% 1000 Ml IV 75 mls/hr DIRECT KEITH Administration Metronidazole 500 mg in 100 mls @ 100 mls/hr 08/26/20 12:00 08/31/20 03:05 Flagyl 500 Mg/100 Ml IV 09/05/20 04:59 100 mls/hr Q8H KEITH Administration Protocol Insulin Human Regular 0 unit 07/23/20 09:00 08/31/20 06:44 Humulin R SUB-Q Not Given Q6HR KEITH Protocol Lacosamide 200 mg 08/21/20 22:00 08/31/20 09:03 Vimpat PO 200 mg Q12HR KEITH Administration Lansoprazole 30 mg 08/26/20 10:00 08/31/20 09:03 Prevacid Solutab FEEDTUBE 30 mg QDAY KEITH Administration Levetiracetam 1,500 mg 08/21/20 22:00 08/31/20 09:02 Keppra PO 1,500 mg BID KEITH Administration Lorazepam 2 mg 08/06/20 05:05 08/22/20 08:05 Ativan IV 2 mg Q4H PRN Administration Agitation Lorazepam 2 mg 08/22/20 11:10 08/22/20 11:18 Ativan IV 2 mg Q10MIN PRN Administration Agitation Megestrol Acetate 400 mg 07/22/20 10:00 08/31/20 09:02 Megestrol PO 400 mg QDAY KIETH Administration Midodrine 10 mg 08/29/20 14:00 08/31/20 09:03 Proamatine PO 10 mg TID KEITH Administration Multi-Ingred Cream/Lotion/Oil/Oint 1 applic 08/22/20 11:10 Artificial Tears Ophth Oint OU Q4HR PRN Dry Eye(s) Olanzapine 2.5 mg 07/25/20 22:00 08/30/20 21:18 Zyprexa PO 2.5 mg QHS KEITH Administration Ondansetron HCl 4 mg 07/12/20 01:06 Zofran IV Q8H PRN Nausea And Vomiting Simple Syrup 15 ml 07/22/20 07:44 Simple Syrup FEEDTUBE PRN PRN Hypoglycemia Simple Syrup 30 ml 07/22/20 07:44 Simple Syrup FEEDTUBE PRN PRN Hypoglycemia Sodium Bicarbonate 325 mg 07/22/20 07:44 Sodium Bicarbonate FEEDTUBE PRN PRN For Clogged Feeding Tube Valproic Acid 1,000 mg 08/18/20 22:00 08/31/20 09:02 Depakene Liq FEEDTUBE 1,000 mg Q12HR KEITH Administration Vancomycin HCl 500 mg 08/26/20 12:00 08/31/20 06:43 Vancomycin Po PO 09/05/20 06:01 500 mg Q6HR KEITH Administration Nutrition/Malnutrition Assess - Dietary Evaluation Nutrition/Malnutrition Findings: Nutrition Notes Start: 07/12/20 11 :40 Freq: Status: Active Protocol: Document 08/29/20 14:46 AL (Rec: 08/29/20 14:54 AL [email or web address]) Co-Sign 08/29/20 14:46 MK Nutrition Notes Initial or Follow up Reassessment Other Pertinent Diagnosis C. diff (+), AMS, Rhabdomyolysis, dehydration, Hx of stroke Current Diet Osmolite 1.5 at 35 ml/hr (goal rate) Labs/Tests Na 135 Pertinent Medications Reviewed Height 5 ft Weight 59.2 kg [place] Body Weight (kg) 45.45 BMI 25.4 Weight change and time frame Wt change noted Weight Status Overweight Subjective/Other Information TF running at goal rate. Percent of energy/protein needs met: 100%/75% Burn Absent Trauma Absent GI Symptoms None Current % PO Negligible Minimum of two criteria No Energy Intake (severe) < or equal to 50% Estimated Energy Requirement > or equal to 5 days #1 Nutrition Diagnosis Inadequate oral intake Diagnosis Progress(for reassessment Continues documentation) Is patient on ventilator? Yes Is Patient Ambulatory and/or Out of Bed No REE-([facility]-confined to bed) 1299.348 Calculation Used for Recommendations [facility] Additional Notes Protein Needs 70-105 g/day (1. 2-2 g/kg) Fluid Needs: 1ml/kcal Nutrition Intervention Change Diet Order: Continue TF Nutrition Support: Osmolite 1.5 at 35 ml/hr. For Hyponatremia, flush 50 ml q4h Once resolved, flush 100 ml q4h [ End ] Kcal 1,260 Protein (gm) 53 Fluid (mL) 640 Goal #1 TF tolerance Goal #2 Meet at least 75% of total energy and protein needs via TF Anticipated Discharge Needs: Recommend Jevity 1.2 bolus 5 cans/day: Breakfast 2 cans ( 474ml), Lunch 2 cans (474ml), Dinner 1 can (237ml) with flush 100ml before and after bolus. Follow-Up By: 09/04/20 Additional Comments FU for TF tolerance and labs
--- NOTE | 2020-08-31 13:52 | Progress Note ---
Assessment and Plan Cultures: Blood culture on 07/11/2020 no growth Urine culture on 07/11/2020 no growth CSF culture 08/16/2020 no growth Tracheal aspirate date 08/22/2020 usual respiratory adarsh Assessment: 60 years old female with a schizoaffective disorder admitted on 07/11/2020 due to altered mental status/confusion and poor p.o. intake found to have intractable seizures within a prolonged hospital stay with intractable seizures rhabdomyolysis, C. difficile colitis on 07/20/2020, catatonia, poor p.o. intake, recent pneumonia, now with: #Sepsis with septic shock: Not present on admission with fever, tachycardia, hypotension, off dopamine; source C. difficile colitis/recurrent. Procalcitonin 0.2 avoid broad-spectrum antibiotics #Acute respiratory failure: Intubated for airway protection. #Recurrent C. difficile colitis: Initial C. difficile colitis on 07/20/2020 treated with vancomycin from 07/20/2020 until 08/03/2020. Patient then received cefepime and vancomycin IV for pneumonia on 08/20/2020. KUB normal. CT abdomen with mild colitis. #Pneumonia: Treated with cefepime and vancomycin. #Intractable seizures: Per neurology #Schizo affective disorder with catatonia: Per psych #Electrolytes imbalance: Per primary team. Recommendations: -Continue vancomycin p.o. 500 g 4 times daily total 10 days -will decrease dosing to 250mg 4 times daily in the next 1 or 2 days if clinically better no need for dopamine drip -Continue metronidazole 500 mg every 8 hours will probably stop-metronidazole in the next 1 or 2 days if clinically better Dr. Abernathy is rounding this weekend Guarded prognosis Will follow. Gloria Sinclair MD Infectious Diseases [employer] [facility] M [phone] O [phone] Subjective Date of service: 08/31/20 Principal diagnosis: C diff status epilepticus Interval history: Patient remains intubated, off dopamine drip more than 24 hours, no fever Objective - Exam Narrative Exam: General appearance: On the ventilator Eyes: anicteric sclerae, moist conjunctivae; no lid-lag; PERRLA HENT: Atraumatic; oropharynx limited minimal diarrhea endotracheal tube Lungs: CTA CV: RRR no murmur Abdomen: Soft, non-tender Extremities: no edema, no cyanosis Skin: No rash. Psych: Intubated no agitated Neuro: Unresponsive. Rectal tube minimal diarrhea - Constitutional Vitals: Vital Signs Temp Pulse Resp BP Pulse Ox 98.1 F 88 20 139/77 100 08/31/20 08:00 08/31/20 13:45 08/31/20 13:45 08/31/20 13:45 08/31/20 13:45 Temperature -Last 24 Hours Temperature 98.1 F Temperature 98.4 F Temperature 98.4 F Temperature 97.8 F Temperature 98.6 F - Labs CBC & Chem 7: 08/29/20 22:00 08/30/20 09:50 Labs: Abnormal lab results 08/30/20 08/30/20 08/30/20 Range/Units 17:49 17:50 23:59 ABG pO2 71.6 L (80.0-90.0) mm Hg ABG Hemoglobin 11.1 L (12.0-16.0) gm/dl Oxyhemoglobin 93.5 L (95.0-99.0) % POC Glucose 120 H 162 H (70-105) mg/dL Phenytoin (10.0-20.0) ug/mL 08/31/20 08/31/20 Range/Units 04:30 13:08 ABG pO2 (80.0-90.0) mm Hg ABG Hemoglobin (12.0-16.0) gm/dl Oxyhemoglobin (95.0-99.0) % POC Glucose 140 H (70-105) mg/dL Phenytoin 7.7 L (10.0-20.0) ug/mL
[2020-09-01] MEDS: INSULIN REGULAR, HUMAN 100 UNIT/ML 3ML VIAL SUB-Q SCH ×4 (00:05→17:39)
[2020-09-01] MEDS: VANCOMYCIN 250 MG/10 ML ORAL LIQD PO SCH ×4 (01:27→17:39)
[2020-09-01] MEDS: HEPARIN 5,000 UNIT/1 ML VIAL SUB-Q SCH ×3 (02:00→17:38)
[2020-09-01] MEDS: metroNIDAZOLE/NS 500 MG/100 ML 500 MG/100 ML BAG IV SCH ×2 (04:03→14:27)
[2020-09-01] MEDS: SODIUM CHLORIDE 0.9% 1000 ML 1,000 ML IV SCH ×2 (04:12→17:42)
[2020-09-01] MEDS: PHENYTOIN 100 MG in SODIUM CHLORIDE 0.9% 100 ML IV SCH ×2 (06:06→14:42)
[2020-09-01] MEDS: levETIRAcetam 500 MG/5 ML ORAL LIQD PO SCH (09:56)
[2020-09-01] MEDS: LORazepam 100 MG in SODIUM CHLORIDE 0.9% 50 ML, EMPTY BAG 0 ML IV SCH (09:56)
[2020-09-01] MEDS: VALPROIC ACID 250 MG/5 ML ORAL LIQD FEEDTUBE SCH (09:56)
[2020-09-01] MEDS: MEGESTROL 400 MG/10 ML ORAL LIQD PO SCH (09:57)
[2020-09-01] MEDS: LACOSAMIDE 100 MG TAB PO SCH (09:57)
[2020-09-01] MEDS: MIDODRINE 5 MG TAB PO SCH ×2 (09:57→14:28)
[2020-09-01] MEDS: LANSOPRAZOLE 30 MG SOLUTAB FEEDTUBE SCH (09:57)
--- NOTE | 2020-09-01 10:22 | Progress Note ---
Assessment and Plan Assessment and plan: 1-year-old female patient with schizoaffective disorder with active hallucinations and confusion presented from [place] for altered mental status and poor intake on 07/13. She was found to have rhabdomyolysis and electrolyte imbalances. She then developed C. difficile diarrhea and she has completed her regimen of p.o. vancomycin from 07/20-08/03. RN stated patient had to liquid bowel movements today however patient is on vancomycin. Per policy if patient has the decreased BMs she was not a C. difficile sample. At the time of my exam this afternoon the patient was in her usual state with no focal seizure activity noted. However this evening when neurology examined her she was noted to have another seizure and was given Ativan IV. Antiepileptic medications adjusted. Dr. Nails spoke to Dr. Taylor about need to transfer for continuous EEG. He also recommended every hour neurochecks and intubation. Stat ABG ordered. 07/13; patient's CK levels trending down on 1678, continue IV hydration patient is more alert at times, hallucinating, Noncommunicative, severe hypokalemia, replace per protocol 07/14; potassium level significantly improved today to 3.2, replenish per protocol. CK levels trending down 828, continue IV hydration, monitor electrolytes 07/15; patient refused potassium yesterday today potassium levels again 2.7 We will add KCl to IV fluids, and IV K riders, monitor electrolytes. CK level 425. Refusing to eat confused noncommunicative. Possible inpatient psych admission when medically stable 07/16; rhabdomyolysis resolved, mild electrolyte imbalances, if corrected medical ly stable for inpatient psych placement 07/17: replete K and phosphate. repeat CBc BMP tomorrow. White count needs to be < 10 for inpt psych admission 07/18: cont to have mildly elevated white count, c/o loose stool. will check for C. def - start flagyl and cipro 07/19: White count normal today. change medications to Po. medically stable to go for inpt psych unit. 07/20; positive for C. def. patient not eating properly, refusing meds time to time. Psych now recommended outpt f/u. CM working on placement. Patient remains nonverbal, does not follow any commend and not giving any personal info. 07/21; K 2.0 today, cont to replete, follow BMP, patient remains nonverbal and not cooperative. refuses to eat and meds. cont d51/2NS. if condition doesnot improve will consider TF 07/22: Potassium level persistently remains low, magnesium 1.6 today. Will replete magnesium and potassium. Patient refusing meds and not eating at all per RN report. Totally noncooperative during the encounternot respond to any question. Keeps her eye closing and covering her face with her forearm. Will order for tube feeding and Dobbhoff tube. Continue to follow. We will also add Megace to boost appetite. 07/23: started on TF, follow BMP, change iv fluid to 1/2 NS. patient remains nonverbal 07/24; clinically unchanged, replete K, iv fluid and TF. reconsult psych as patient remains in catatonic phase 07/25: psych recommendation noted, continue tube feeding, continue to replete electrolytes as needed, follow BMP. I strongly believe her severe electrolytes derangement and encephalopathy related to her catatonia, poor oral intake other than any underlying medical conditions. There is no family contact in file, no home address available, patient appeared to be unfunded. branch lending manager working on placement. 07/26: psych recommendation noted, continue tube feeding, continue to replete electrolytes as needed, follow BMP. I strongly believe her severe electrolytes derangement and encephalopathy related to her catatonia, poor oral intake other than any underlying medical conditions. There is no family contact in file, no home address available, patient appeared to be unfunded. branch lending manager working on placement. 07/27; continue with tube feeding. There is no family contact in file, no home address available, patient appeared to be unfunded. Case management is following. 07/28; patient still on tube feeding, patient is noncommunicative. I believe her condition is related to her catatonia. Psych is following her. Currently her electrolytes are corrected. There is no family contact in file, no home address available, patient appeared to be unfunded. Case management is following. 07/29 patient is nonverbal, eyes open does not follow simple commands,, still having low-grade fever T-max 100 degrees,, lab results reviewed discussed with RN- still has loose stools, outsole caser notes reviewed, unable to contact family 07/30 no acute events overnight, diarrhea improved, stop IV fluids, disposition to be decided 07/31: psychological operations officer presented to the bedside to attempt to fingerprint the patient to identify her. However his machine was not working 08/01:' Per outsole caser note [facility] [employer] has been contacted to help in identifying the patient. On officer is to report to bedside and was instructed to call the outsole caser upon arrival. 08/02/2020 still has diarrhea 08/03/2020 diarrhea improving. Today is the last day of vancomycin 08/04/2020 patient has no diarrhea 08/05: shift production associate RN reported patient had a seizure overnight, Ativan was ordered however was not administered because according to the dayshift RN he was reported that the patient "did not need the medication because she was not having a seizure at the moment". Patient remained hyponatremic and hypochloremic and after conversing with the nurse patient was not getting her prescribed dose FWF for hyponatremia which was corrected 08/06: Electrolyte imbalance discontinue, patient still catatonic 08/07: Electrolyte imbalances continue, to physician consent for PEG tube obtained and GI consulted 08/08: PEG scheduled for 08/09 08/09: s/p PEG placement with GI, hyperkalemic (potassium 5.2) s/p AR Kayexalate. 08/11; patient is on PEG tube feeding. C. difficile treated and resolved. Patient still in catatonic state. Pending guardianship. 08/12/2020 patient on PEG tube feeding. Guardianship pending. Pending placement. 08/13: no aucte events reported overnight, gaurdenship pending. 08/14/20: quality and futility of care is questionable, patient not following any commands, pupillary reflex noted, neurology and ethics consult placed 08/15: Neurology recommended LP, EEG, CT head and MRI brain with and without contrast which are all pending. 08/16: Physician consult obtained for LP which was completed today. Bilateral lower extremity x-rays noted no metal and a physician consent was obtained for contrast therefore MRI brain pending. EEG still pending. Patient again has hypochloremia and hyponatrema 08/17: status epilepticus noted on EEG, Neurology recommends transfer for continues EEG. 08/19: seizures subsided. No active seizures. Pending placement. 08/20: CXR shows possible PNA, initiated on cefepime and vancomycin 08/21. Discussed with neurologist. Patient needs to be transferred to a tertiary center for continuous EEG monitoring Transfer to [facility] initiated. As per [place], case will be sent to and earliest time for possible transfer will be tomorrow. In the meantime, patient will need intubation and sedation for status as per neurology. Critical care consult placed. Vent orders placed. Anesthesia paged. Patient will be going to the ICU. Transfer order placed. Discussed with anesthesia Dr Hawthorne 6:50 PM and told him why patient needs to be intubated immediately. Apparently, patient transfer orders still in progress and patient still on the floors during his evaluation at bedside. Patient cannot be intubated or while on the floor as per anesthesia MD. Patient is to go to ICU and then intubated. 08/21 transfer to [facility] initiated today as patient still having seizure episodes. -08/23. I discussed with transfer center at [facility] and neurologist Dr. Trivedi requested that latest EEG be reviewed by telemetry neurology. 08/22. Overnight events noted. Patient intubated this AM and started on versed. Discussed with [facility], case is still being reviewed. Called [facility] and was told facility do not have continuous EEG monitoring. She remains on multiple seizure medications. Continue BP medications. Neurology is following closely. 08/23. Patient seen and examined at bedside this morning. Patient has been denied transfer by [facility] as no neuro critical care ICU available. [facility] only accepting patients with acute stroke, gabriel or trauma. Placed a call to [facility] and gave details today. Awaiting callback. Otherwise patient remains sedated. EEG performed yesterday shows significant improvement in status epilepticus. Neurology to review today. 08/24. I discussed with transfer center at [facility] and neurologist Dr. Trivedi requested that latest EEG be reviewed by teleneurology prior to consideration. As patient seizures have subsided, weaning will be on a lternative. Neurology notes reviewed-patient to be maintained on sedation for now until it is safe too wean (needs continuous EEG monitoring for this]. I called back transfer center at [facility] was told there are no beds at this time. Patient noted to have Fever overnight. Also has loose watery stools and procalcitonin is elevated. She has been on antibiotics for 4 days now. Repeat chest x-ray shows no new pneumonia. Due to diarrhea, will DC antibiotics for now. Send stool for C. difficile as she had C. difficile earlier during this admission. We will consult ID if C. difficile is positive. Will maintain on current medications for now 08/25. C diff is positive. Started on PO vancomycin. ID consulted. DCed IV antibiotics. Monitor WBC. Will get abdominal CT if no improvement is noted. [facility] but no beds available today. Neurology recommendations appreciated. Will keep sedatives at same dose. 08/26. Patient needs continuous EEG monitoring. Called [facility] and [facility] but still have no beds available. [facility] is not accepting patients except Acute stroke, gabriel and trauma patients. [facility] does not have contin uous EEG monitoring. She is still on low dose lorazepam. Discussed with CM to find other hospitals where patient can have the EEG monitoring. In the mean time, patient may need to have titration of sedatives but this may not be possible as per neurology. Neurology not available this to assist. Plan to discuss alternatives with neurology on Thursday. Otherwise, she is still on low dose dopamine and PO vancomycin for recurrent clostridium difficile infection. ID is on board. AM labs not drawn. Labs reordered 08/28: Continues on ventilatory support, awaiting transfer for continouse EEG. 08/29: Will add midodrine and see if we can wean off dobutamin, discussed with Ank[facility] and [facility], no bed available, will reconsult Neurology for daily Neurology eval. Discussed with Respiratory to see if we can wean off ventilator 08/30: Reconsulting Neurology, discussed with Nursings staff to wean off dobutamin since midodrine has been started and MAP this am is 70. Also wean Ativan. Awaiting Ethics committee. Await bed availability for transfer to more advanced facility as this patient will benefit from a more specalized care. 08/31: Patient remains unresponsive on Ativan drip being used due to continuous seizures. Neurology did evaluate the patient believes that encephalopathy secondary to status epilepticus. We still do not have an accepting facility as of facility around as on diversion. Per neurology and another EEG is to be done today. Also Dilantin trough level to be obtained this morning. Goal is to keep it between 10 and 20. Last EEG that was done according to reading from neurology states that they still see left anterior temporal region epileptiform type activities with burst suppression pattern delta slowing. They did give additional dose of fosphenytoin 500 mg and continue current dose of Dilantin 200 mg 3 times a day. The recommendation is still for higher level of care with continuous EEG to see if patient develops positive suppression pattern for 24 hours and then gradually reduce the dose of Ativan or Versed or propofol. Patient currently is not on propofol or Versed just Ativan. They will feel that reducing the Ativan dose while monitoring the EEG will help see if this seizures are suppressed. Patient remains in critical care ICU at this point. Continues to have seizures despite being on Vimpat Keppra Depakote Dilantin and Ativan drip which will begin to gradually decrease per recommendation from the [facility] facility to see if there is any changes. 09/01: Persistent seizures, Unable to stop Ativan due to persistent hospitals. Antibiotics per ID, still awaiting Bed at higher level of care as requested. PATIENT REMAINS ON FULL VENTILATORY SUPPORT. (1) Acute metabolic encephalopathy secondary to status epilepticus Current Visit: Yes Status: Acute Qualifiers: Altered mental status type: unspecified Qualified Code(s): R41.82 - Altered mental status, unspecified Plan to address problem: Possible continuous seizure. May be exacerbated by underlying infections in the past and/or schizoaffective disorder. (2) Anemia: Continue supportive care (3) Status epilepticus Current Visit: Yes Status: Acute Plan to address problem: Plan to address problem: RN reported seizure activity on on 08/05; Ativan was ordered however was not administered because according to the dayshift RN he was reported that the patient "did not need the medication because she was not having a seizure at the moment". After reviewing nursing notes it is noted that she had reported seizure activity by RN on 08/12 and was given Ativan. Hospitalist was informed No seizure activity reported since Neurology consulted EEG no no status epilepticus Pt is on depakote 1000 mg bid; Keppra 1500 mg bid; vimpat 200 mg iv q12; and now initiated on Fosphentoin (load and maintenance) despite drug-drug interaction on 08/21 per neurology Per neurology: Patient will require transfer to a facility w/ cEEG monitoring for higher level of care as EEG here is intermittently available and intermittently read at present; increase depakote to 1000 mg bid (bolus of 500 mg via peg); increase Keppra to 1500 mg bid; initiate vimpat 200 mg iv q12; s/p Ativan 1 mg IV x 1 dose given; pending MRI Brain w/ wo contrast. Recommend q1 hour neurochecks. 08/19 it was noted that patient's seizure activity subsided therefore was not transferred to tertiary care 08/21 noted to have a focal seizure when neurology was examining the patient, given Ativan x1 and started on a third antiepileptic. Transfer to [facility] reinitiated today. Discussed [facility] neurology - patient will need intubation and sedation. Discussed with anesthesia and voltage tester. Transfer order placed. Vent bundle ordered. -08/22. Patient intubated this AM. Had another episode of seizure early AM as per RN prior to intubation. Neurology currently following. Patient is on Depakote, Keppra, fosphenytoin and Vimpat. -08/23. EEG shows improvement after sedation and intubation. Teleneurology following -08/24 - 08/25. No seizures noted. Still on lorazepam drip. Will order EEG repeat. -08/26. No beds at [facility]. [facility] has no continuous EEG monitor. [facility] only acceptinig stroke patients. Discussed with CM to see if he can find hospitals that have EEG capability here in [place]. 08/26/2020 received call from [facility] about reconnecting with transfer service from [facility] [phone]. We will follow-up in a.m. to see if they have a bed for continuous EEG capabilities. Otherwise patient remains unresponsive nonverbal at baseline. Intubated. (4) Schizoaffective disorder Current Visit: Yes Status: Chronic Plan to address problem: Haldol as needed antipsychotic medications. (5) C. difficile diarrhea Current Visit: Yes Status: Resolved Plan to address problem: Continue vancomycin for an additional 4 times a day for total of 10 days. No loose stool today. (6) Rhabdomyolysis Current Visit: Yes Status: Resolved Qualifiers: Rhabdomyolysis type: non-traumatic Qualified Code(s): M62.82 - Rhabdomyolysis Plan to address problem: Resolving with aggressive IV fluid hydration before. (7) Hyponatremia Current Visit: Yes Status: Resolved Plan to address problem: Admit sodium 142 07/31 134, slight hyponatremia at this time no intervention needed, 08/01 Na 136 however she has remained hyponatremic Hydration with free water flush; 50ml q6 hours while hyponatremic-> informed RN on 08/06 08/07 sodium 136 08/09 sodium 135 Trend BMP 08/10 sodium 141 08/15 sodium 134; informed RN FWF are ordered to be 50 mL every 6 while hyponatremic 08/16 sodium 131, nutrition notes reviewed and FWF seems to be changed 100 mL q4 hours 08/17 sodium 134 08/20 hyponatremia resolved 08/27/2020 remains stable. (8) Metabolic encephalopathy Current Visit: Yes Status: Acute Plan to address problem: kim to address problem: Multifactorial , schizoaffective disorder and withdrawal seizures 07/11 CT head Normal nonenhanced CT scan of the brain Patient came from [place], psych evaluation noted Psych recommends outpt f/u 08/14 neurology consult: Recommends obtaining EEG, LP, CTA head, MRI brain with and without contrast 08/15 CT head shows no acute abnormalities and no changes since 07/11/202008/16: LP under fluoroscopy completed. CSF analysis shows no evidence of encephalitis 08/16 MRI brain with/without contrast pending: Shows no acute abnormalities Supportive care -Now on multiple antiseizure medications. Intubated and sedated. Plan for transfer to [address] [place] [address] (9) DVT prophylaxis Current Visit: Yes Status: Acute (10) Discharge planning issues Current Visit: Yes Status: Acute Plan to address problem: Patient's identity is not confirmed [facility] has been contacted to aid in identification however unsuccessful [facility] Department have been contacted Inpatient records requested from [facility] again on 08/02 Risk-management made aware of patient again on 08/02 Patient identification confirmed with [facility] Department Attempted to contact children, CM has an email address and an email was sent over the weekend however there is been no reply 08/07: 2 physician consent for PEG tube obtained and GI consulted for PEG tube placement 08/09: PEG tube placed, resume tube feeds within 4 hours [facility] over the patient for placement 08/14 ethics consulted 08/17 Dr. Nails requested a transfer to another facility for continuous EEG as the patient The high probability of a clinically significant, sudden or life threatening deterioration of the [RESPIRATORY, NEUROLOGY] system(s) required my full and direct attention, intervention and personal management. The aggregate critical care time was [35] minutes. This time is in addition to time spent performing reported procedures but includes the following: [X] Data Review and interpretation [X] Patient assessment and monitoring of vital signs [X] Documentation [X] Medication orders and management may be in status epilepticus. Patient seiz ures reportedly improved and transfer was initiated History Interval history: Patient seen and examined, remains on full ventilatory support and on Ativan dr dunn. Hospitalist Physical - Physical exam Narrative exam: General appearance: Present: no acute distress, cachectic, other, orally in tubated - EENT ENT: clear oral mucosa, other (Unresponsive) Ears: bilateral: normal - Neck Neck: supple, normal ROM - Respiratory Respiratory effort: normal Respiratory: bilateral: CTA, diminished, rales, rhonchi - Breasts Breasts: normal - Cardiovascular Rhythm: regular Heart Sounds: Present: S1 & S2. Absent: gallop, rub Extremities: pulses intact, No edema, normal color, Full ROM - Gastrointestinal General gastrointestinal: Present: soft, non-tender, non-distended, hypoactive bowel sounds, other (Scaphoid) - Genitourinary Female genitourinary: normal - Integumentary Integumentary: clear, warm, dry - Musculoskeletal Musculoskeletal: other (Debility) - Neurologic Neurologic: unresponsive - Psychiatric Psychiatric: other (Unresponsive) - Constitutional Vitals: Temp Pulse Resp BP Pulse Ox 98.8 F 99 H 20 104/55 98 09/01/20 03:38 09/01/20 09:30 09/01/20 09:30 09/01/20 09:30 09/01/20 09:30 General appearance: Present: no acute distress, cachectic, other HEART Score - HEART Score Risk factors: 1-2 risk factors Troponin: Troponin T < 0.010 ng/mL (0.00-0.029) 07/11/20 21:17 Troponin: < normal limit - Critical Actions Critical Actions: 0-3 pts:0.9-1.7%risk of adverse cardiac event.Candidate for d ischarge Results - Labs CBC & Chem 7: 08/29/20 22:00 08/30/20 09:50 Labs: Laboratory Last Values WBC 17.0 K/mm3 (4.5-11.0) H 08/29/20 22:00 RBC 3.02 M/mm3 (3.65-5.03) L 08/29/20 22:00 Hgb 9.9 gm/dl (10.1-14.3) L 08/29/20 22:00 Hct 29.0 % (30.3-42.9) L 08/29/20 22:00 MCV 96 fl (79-97) 08/29/20 22:00 MCH 33 pg (28-32) H 08/29/20 22:00 MCHC 34 % (30-34) 08/29/20 22:00 RDW 15.9 % (13.2-15.2) H 08/29/20 22:00 Plt Count 490 K/mm3 (140-440) H 08/29/20 22:00 Lymph % (Auto) 17.0 % (13.4-35.0) 08/29/20 01:57 Barnes % (Auto) 6.1 % (0.0-7.3) 08/29/20 01:57 Eos % (Auto) 1.1 % (0.0-4.3) 08/29/20 01:57 Baso % (Auto) 0.4 % (0.0-1.8) 08/29/20 01:57 Lymph # (Auto) 3.2 K/mm3 (1.2-5.4) 08/29/20 01:57 Barnes # (Auto) 1.1 K/mm3 (0.0-0.8) H 08/29/20 01:57 Eos # (Auto) 0.2 K/mm3 (0.0-0.4) 08/29/20 01:57 Baso # (Auto) 0.1 K/mm3 (0.0-0.1) 08/29/20 01:57 Add Manual Diff Complete 08/27/20 03:37 Total Counted 100 08/27/20 03:37 Seg Neutrophils % 75.4 % (40.0-70.0) H 08/29/20 01:57 Seg Neuts % (Manual) 69.0 % (40.0-70.0) 08/27/20 03:37 Band Neutrophils % 5.0 % 08/27/20 03:37 Lymphocytes % (Manual) 14.0 % (13.4-35.0) 08/27/20 03:37 Reactive Lymphs % (Man) 0 % 08/27/20 03:37 Monocytes % (Manual) 6.0 % (0.0-7.3) 08/27/20 03:37 Eosinophils % (Manual) 3.0 % (0.0-4.3) 08/27/20 03:37 Basophils % (Manual) 0 % (0.0-1.8) 08/27/20 03:37 Metamyelocytes % 3.0 % 08/27/20 03:37 Myelocytes % 0 % 08/27/20 03:37 Promyelocytes % 0 % 08/27/20 03:37 Blast Cells % 0 % 08/27/20 03:37 Nucleated RBC % Not Reportable 08/27/20 03:37 Seg Neutrophils # 14.1 K/mm3 (1.8-7.7) H 08/29/20 01:57 Seg Neutrophils # Man 11.7 K/mm3 (1.8-7.7) H 08/27/20 03:37 Band Neutrophils # 0.9 K/mm3 08/27/20 03:37 Lymphocytes # (Manual) 2.4 K/mm3 (1.2-5.4) 08/27/20 03:37 Abs React Lymphs (Man) 0.0 K/mm3 08/27/20 03:37 Monocytes # (Manual) 1.0 K/mm3 (0.0-0.8) H 08/27/20 03:37 Eosinophils # (Manual) 0.5 K/mm3 (0.0-0.4) H 08/27/20 03:37 Basophils # (Manual) 0.0 K/mm3 (0.0-0.1) 08/27/20 03:37 Metamyelocytes # 0.5 K/mm3 08/27/20 03:37 Myelocytes # 0.0 K/mm3 08/27/20 03:37 Promyelocytes # 0.0 K/mm3 08/27/20 03:37 Blast Cells # 0.0 K/mm3 08/27/20 03:37 Pathologist Review 08/26/20 14:58 WBC Morphology Not Reportable 08/27/20 03:37 Hypersegmented Neuts Not Reportable 08/27/20 03:37 Hyposegmented Neuts Not Reportable 08/27/20 03:37 Hypogranular Neuts Not Reportable 08/27/20 03:37 Smudge Cells Not Reportable 08/27/20 03:37 Toxic Granulation Not Reportable 08/27/20 03:37 Toxic Vacuolation Not Reportable 08/27/20 03:37 Dohle Bodies Not Reportable 08/27/20 03:37 Pelger-Huet Anomaly Not Reportable 08/27/20 03:37 Rashad Rods Not Reportable 08/27/20 03:37 Platelet Estimate Consistent w auto 08/27/20 03:37 Clumped Platelets Not Reportable 08/27/20 03:37 Plt Clumps, EDTA Not Reportable 08/27/20 03:37 Large Platelets Not Reportable 08/27/20 03:37 Giant Platelets Not Reportable 08/27/20 03:37 Platelet Satelliting Not Reportable 08/27/20 03:37 Plt Morphology Comment Not Reportable 08/27/20 03:37 RBC Morphology Not Reportable 08/27/20 03:37 Dimorphic RBCs Not Reportable 08/27/20 03:37 Polychromasia Not Reportable 08/27/20 03:37 Hypochromasia Not Reportable 08/27/20 03:37 Poikilocytosis Not Reportable 08/27/20 03:37 Anisocytosis Few 08/27/20 03:37 Microcytosis Not Reportable 08/27/20 03:37 Macrocytosis Not Reportable 08/27/20 03:37 Spherocytes Not Reportable 08/27/20 03:37 Pappenheimer Bodies Not Reportable 08/27/20 03:37 Sickle Cells Not Reportable 08/27/20 03:37 Target Cells Few 08/27/20 03:37 Tear Drop Cells Not Reportable 08/27/20 03:37 Ovalocytes Not Reportable 08/27/20 03:37 Helmet Cells Not Reportable 08/27/20 03:37 [place] Bodies Not Reportable 08/27/20 03:37 [place] Rings Not Reportable 08/27/20 03:37 [place] Cells Not Reportable 08/27/20 03:37 Bite Cells Not Reportable 08/27/20 03:37 Crenated Cell Not Reportable 08/27/20 03:37 Elliptocytes Not Reportable 08/27/20 03:37 Acanthocytes (Spur) Not Reportable 08/27/20 03:37 Rouleaux Not Reportable 08/27/20 03:37 Hemoglobin C Crystals Not Reportable 08/27/20 03:37 Schistocytes Not Reportable 08/27/20 03:37 Malaria parasites Not Reportable 08/27/20 03:37 Ed Bodies Not Reportable 08/27/20 03:37 Hem Pathologist Commnt No 08/27/20 03:37 PT 12.5 Sec. (12.2-14.9) 08/15/20 15:26 INR 0.92 (0.87-1.13) 08/15/20 15: APTT 20.4 Sec. (24.2-36.6) L 08/15/20 15:26 ABG pH 7.497 (7.320-7.450) H 09/01/20 04:57 POC ABG pCO2 30.9 mmHg (32.0-48.0) L 09/01/20 04:57 ABG pCO2 34.7 mm Hg 08/30/20 17:50 POC ABG pO2 67.8 mmHg (83-108) L 09/01/20 04:57 ABG pO2 71.6 mm Hg (80.0-90.0) L 08/30/20 17:50 POC ABG HCO3 23.4 09/01/20 04:57 ABG HCO3 22.4 mmol/L (20.0-26.0) 08/30/20 17:50 ABG O2 Saturation 95.3 % (95.0-99.0) 08/30/20 17:50 ABG O2 Content 14.7 (0.0-44) 08/30/20 17:50 POC ABG Base Excess 0.8 09/01/20 04:57 ABG Base Excess -1.5 mmol/L (-2.0-3.0) 08/30/20 17:50 ABG Hemoglobin 11.4 (12.0-17.5) L 09/01/20 04:57 ABG Oxyhemoglobin 98.9 (94-98) H 08/22/20 11:18 ABG Carboxyhemoglobin 1.3 % (0.0-5.0) 08/30/20 17:50 ABG Methemoglobin 0.6 % (0.0-1.5) 08/30/20 17:50 ABG Sodium 131.1 mmol/L (136.0-145.0) L 09/01/20 04:57 ABG Potassium 3.6 mmol/L (3.40-4.50) 09/01/20 04:57 ABG Chloride 105.0 mmol/L (98-107) 09/01/20 04:57 ABG Glucose 125 mg/dL (65-95) H 09/01/20 04:57 Oxyhemoglobin 93.5 % (95.0-99.0) L 08/30/20 17:50 Carboxyhemoglobin 0.4 (0.5-1.5) L 08/22/20 11:18 FiO2 25 09/01/20 04:57 Sodium 139 mmol/L (137-145) 08/30/20 09:50 Potassium 4.2 mmol/L (3.6-5.0) 08/30/20 09:50 Chloride 105.1 mmol/L (98-107) 08/30/20 09:50 Carbon Dioxide 25 mmol/L (22-30) 08/30/20 09:50 Anion Gap 13 mmol/L 08/30/20 09:50 BUN 6 mg/dL (7-17) L 08/30/20 09:50 Creatinine < 0.2 mg/dL (0.6-1.2) L 08/30/20 09:50 Estimated GFR > 60 ml/min 08/30/20 09:50 BUN/Creatinine Ratio 30 % 08/30/20 09:50 Glucose 143 mg/dL (65-100) H 08/30/20 09:50 POC Glucose 126 mg/dL (70-105) H 09/01/20 05:36 Lactic Acid 1.50 mmol/L (0.7-2.0) 07/12/20 00:04 Phosphorus 3.10 mg/dL (2.5-4.5) 07/24/20 06:00 Calcium 7.2 mg/dL (8.4-10.2) L 08/30/20 09:50 Direct Bilirubin < 0.2 mg/dL (0-0.2) 07/13/20 09:33 Magnesium 2.30 mg/dL (1.7-2.3) 08/26/20 14:58 Total Bilirubin < 0.20 mg/dL (0.1-1.2) 08/30/20 09:50 Total Creatine Kinase 102 units/L (30-135) 07/17/20 05:21 CK-MB (CK-2) 9.2 ng/mL (0.0-4.0) H 07/12/20 15:13 AST 77 units/L (5-40) H 08/30/20 09:50 ALT 64 units/L (7-56) H 08/30/20 09:50 CK-MB (CK-2) Rel Index 0.4 (0-4) 07/12/20 15:13 Alkaline Phosphatase 67 units/L (35-129) 08/30/20 09:50 Troponin T < 0.010 ng/mL (0.00-0.029) 07/11/20 21:17 Ammonia 50.0 umol/L (25-60) 08/23/20 20:30 Total Protein 4.5 g/dL (6.3-8.2) L 08/30/20 09:50 Albumin 2.0 g/dL (3.9-5) L 08/30/20 09:50 Albumin/Globulin Ratio 0.8 % 08/30/20 09:50 Procalcitonin 0.23 ng/mL (<0.15) 08/30/20 09:50 Arterial Blood Glucose 125 mg/dL (65-95) H 09/01/20 04:57 Arterial Blood Ionized Calcium 4.2 mg/dL (4.6-5.3) L 09/01/20 04:57 Urine Color Yellow (Yellow) 08/22/20 Unknown Urine Turbidity Clear (Clear) 08/22/20 Unknown Urine pH 7.0 (5.0-7.0) 08/22/20 Unknown Ur Specific [place] 1.017 (1.003-1.030) 08/22/20 Unknown Urine Protein <15 mg/dl mg/dL (Negative) 08/22/20 Unknown Urine Glucose (UA) Neg mg/dL (Negative) 08/22/20 Unknown Urine Ketones Tr mg/dL (Negative) 08/22/20 Unknown Urine Blood Neg (Negative) 08/22/20 Unknown Urine Nitrite Neg (Negative) 08/22/20 Unknown Urine Bilirubin Neg (Negative) 08/22/20 Unknown Urine Urobilinogen < 2.0 mg/dL (<2.0) 08/22/20 Unknown Ur Leukocyte Esterase Neg (Negative) 08/22/20 Unknown Urine WBC (Auto) 7.0 /HPF (0.0-6.0) H 08/22/20 Unknown Urine RBC (Auto) 1.0 /HPF (0.0-6.0) 08/22/20 Unknown U Epithel Cells (Auto) 3.0 /HPF (0-13.0) 08/22/20 Unknown Urine Mucus Few /HPF 08/22/20 Unknown CSF Appearance Clear 08/16/20 14:18 CSF Color Colorless 08/16/20 14:18 CSF WBC 6 /mm3 (1-10) 08/16/20 14:18 CSF RBC 4 /mm3 (0-0) 08/16/20 14:18 CSF Seg Neutrophils 0 % (0-6) 08/16/20 14:18 CSF Lymphocytes % 90.0 % (40-80) 08/16/20 14:18 CSF Reactive Lymphs 0 % 08/16/20 14:18 CSF Monocytes % 10.0 % (15-45) 08/16/20 14:18 CSF Eosinophils % 0 % 08/16/20 14:18 CSF Basophils 0 % 08/16/20 14:18 CSF Pathologist Review C 08/16/20 14:18 CSF Glucose 60 mg/dL 08/16/20 14:18 CSF Total Protein 94 mg/dL 08/16/20 14:18 CSF VDRL Nonreactive (Nonreactive) 08/16/20 14:18 Vancomycin Trough 4.0 ug/mL (5.0-20.0) L 08/23/20 20:30 Salicylates < 0.3 mg/dL (2.8-20.0) L 07/11/20 21:17 Urine Opiates Screen Presumptive negative 07/11/20 Unknown Urine Methadone Screen Presumptive negative 07/11/20 Unknown Acetaminophen 5.0 ug/mL (10.0-30.0) L 07/11/20 21:17 Ur Barbiturates Screen Presumptive negative 07/11/20 Unknown Ur Phencyclidine Scrn Presumptive negative 07/11/20 Unknown Phenytoin 8.1 ug/mL (10.0-20.0) L 08/31/20 12:00 Ur Amphetamines Screen Presumptive negative 07/11/20 Unknown Valproic Acid 55.9 ug/mL (50-100) 08/24/20 Unknown U Benzodiazepines Scrn Presumptive negative 07/11/20 Unknown Urine Cocaine Screen Presumptive negative 07/11/20 Unknown U Marijuana (THC) Screen Presumptive negative 07/11/20 Unknown Drugs of Abuse Note Disclamer 07/11/20 Unknown C. difficile Tox (PCR) Positive (Negative) 08/24/20 Unknown Coronavirus (PCR) Negative (Negative) 08/23/20 10:18 Enterovirus (PCR) Cmmt See scanned result 08/16/20 14:18 HSV I DNA PCR See scanned result 08/16/20 14:18 HSV II DNA PCR See scanned result 08/16/20 14:18 VZV (Qnt-PCR) See scanned result 08/16/20 14:18 Ledesma/IV: Voiding Method Indwelling Catheter IV Catheter Type [Right Upper PICC Line arm] IV Catheter Type [Right INT / Saline Lock Antecubital] IV Catheter Type [Left Forearm INT / Saline Lock ] IV Catheter Type [Right Hand] INT / Saline Lock IV Catheter Type [Right INT / Saline Lock Forearm] IV Catheter Type [Left Hand] INT / Saline Lock Active Medications - Current Medications Current Medications: Generic Name Dose Route Start Last Admin Trade Name Freq PRN Reason Stop Dose Admin Acetaminophen 650 mg 08/24/20 09:00 08/24/20 15:06 Tylenol PO 650 mg Q4H PRN Administration TEMP > 101 Lipase/Protease/Amylase 1 each 07/22/20 07:44 08/14/20 10:[address] 10,500 Unit FEEDTUBE 1 each PRN PRN Administration For Clogged Feeding Tube Haloperidol Lactate 5 mg 07/18/20 13:15 07/21/20 22:06 Haldol IM 5 mg Q6H PRN Administration Agitation Heparin Sodium (Porcine) 5,000 unit 07/12/20 10:00 09/01/20 10:02 Heparin SUB-Q 5,000 unit Q8H KEITH Administration Hydrophilic Ointment 1 applic 08/21/20 18:21 Vaseline Lip Therapy TP Q2HR PRN Dry Lips Propofol 1,000 mg in 100 mls @ 1.524 mls/hr 08/21/20 20:00 Diprivan 10 Mg/Ml IV TITR KEITH Protocol 5 MCG/KG/MIN Phenytoin 100 mg/ Sodium 102 mls @ 408 mls/hr 08/22/20 10:00 09/01/20 06:06 Chloride IV 408 mls/hr Q8HR KEITH Administration Lorazepam 100 mg/ Sodium 100 mls @ 1 mls/hr 08/22/20 12:00 09/01/20 09:56 Chloride/ Miscellaneous IV 1 mg/hr Information TITR KEITH 1 mls/hr Administration Protocol 1 MG/HR Sodium Chloride 1,000 mls @ 75 mls/hr 08/26/20 08:30 09/01/20 09:58 Nacl 0.9% 1000 Ml IV 75 mls/hr DIRECT KEITH Infusion Metronidazole 500 mg in 100 mls @ 100 mls/hr 08/26/20 12:00 09/01/20 04:03 Flagyl 500 Mg/100 Ml IV 09/05/20 04:59 100 mls/hr Q8H KEITH Administration Protocol Insulin Human Regular 0 unit 07/23/20 09:00 09/01/20 06:05 Humulin R SUB-Q Not Given Q6HR KEITH Protocol Lacosamide 200 mg 08/21/20 22:00 09/01/20 09:57 Vimpat PO 200 mg Q12HR KEITH Administration Lansoprazole 30 mg 08/26/20 10:00 09/01/20 09:57 Prevacid Solutab FEEDTUBE 30 mg QDAY KEITH Administration Levetiracetam 1,500 mg 08/21/20 22:00 09/01/20 09:56 Keppra PO 1,500 mg BID KEITH Administration Lorazepam 2 mg 08/06/20 05:05 08/22/20 08:05 Ativan IV 2 mg Q4H PRN Administration Agitation Lorazepam 2 mg 08/22/20 11:10 08/22/20 11:18 Ativan IV 2 mg Q10MIN PRN Administration Agitation Megestrol Acetate 400 mg 07/22/20 10:00 09/01/20 09:57 Megestrol PO 400 mg QDAY KEITH Administration Midodrine 10 mg 08/29/20 14:00 09/01/20 09:57 Proamatine PO 10 mg TID KEITH Administration Multi-Ingred Cream/Lotion/Oil/Oint 1 applic 08/22/20 11:10 Artificial Tears Ophth Oint OU Q4HR PRN Dry Eye(s) Olanzapine 2.5 mg 07/25/20 22:00 08/31/20 21:33 Zyprexa PO 2.5 mg QHS KEITH Administration Ondansetron HCl 4 mg 07/12/20 01:06 Zofran IV Q8H PRN Nausea And Vomiting Simple Syrup 15 ml 07/22/20 07:44 Simple Syrup FEEDTUBE PRN PRN Hypoglycemia Simple Syrup 30 ml 07/22/20 07:44 Simple Syrup FEEDTUBE PRN PRN Hypoglycemia Sodium Bicarbonate 325 mg 07/22/20 07:44 Sodium Bicarbonate FEEDTUBE PRN PRN For Clogged Feeding Tube Valproic Acid 1,000 mg 08/18/20 22:00 09/01/20 09:56 Depakene Liq FEEDTUBE 1,000 mg Q12HR KEITH Administration Vancomycin HCl 500 mg 08/26/20 12:00 09/01/20 06:06 Vancomycin Po PO 09/05/20 06:01 500 mg Q6HR KEITH Administration Nutrition/Malnutrition Assess - Dietary Evaluation Nutrition/Malnutrition Findings: Nutrition Notes Start: 07/12/20 11:40 Freq: Status: Active Protocol: Document 08/29/20 14:46 AL (Rec: 08/29/20 14:54 AL [email or web address]) Co-Sign 08/29/20 14:46 MK Nutrition Notes Initial or Follow up Reassessment Other Pertinent Diagnosis C. diff (+), AMS, Rhabdomyolysis, dehydration, Hx of stroke Current Diet Osmolite 1.5 at 35 ml/hr (goal rate) Labs/Tests Na 135 Pertinent Medications Reviewed Height 5 ft Weight 59.2 kg [place] Body Weight (kg) 45.45 BMI 25.4 Weight change and time frame Wt change noted Weight Status Overweight Subjective/Other Information TF running at goal rate. Percent of energy/protein needs met: 100%/75% Burn Absent Trauma Absent GI Symptoms None Current % PO Negligible Minimum of two criteria No Energy Intake (severe) < or equal to 50% Estimated Energy Requirement > or equal to 5 days #1 Nutrition Diagnosis Inadequate oral intake Diagnosis Progress(for reassessment Continues documentation) Is patient on ventilator? Yes Is Patient Ambulatory and/or Out of Bed No REE-([facility]-confined to bed) [phone] Calculation Used for Recommendations [facility] Additional Notes Protein Needs 70-105 g/day (1. 2-2 g/kg) Fluid Needs: 1ml/kcal Nutrition Intervention Change Diet Order: Continue TF Nutrition Support: Osmolite 1.5 at 35 ml/hr. For Hyponatremia, flush 50 ml q4h Once resolved, flush 100 ml q4h [ End ] Kcal 1,260 Protein (gm) 53 Fluid (mL) 640 Goal #1 TF tolerance Goal #2 Meet at least 75% of total energy and protein needs via TF Anticipated Discharge Needs: Recommend Jevity 1.2 bolus 5 cans/day: Breakfast 2 cans ( 474ml), Lunch 2 cans (474ml), Dinner 1 can (237ml) with flush 100ml before and after bolus. Follow-Up By: 09/04/20 Additional Comments FU for TF tolerance and labs
[2020-09-01 18:01] VITALS: BP 119/66
[2020-09-01] MEDS: ACETAMINOPHEN 325 MG/10.15 ML ORAL LIQD UNIT DOSE PO PRN (18:39)
--- NOTE | 2020-09-02 07:35 | Discharge Summary ---
Providers - Providers Date of Admission: 07/13/20 12:39 Attending physician: ТАТЬЯНА CASTILLO MD 07/13/20 08:58 psychiatry consult [Consult to Mental Health] [CONS] Routine Reason For Exam: Patient from [facility] /psych consult 07/20/20 11:26 Physical Therapy Evaluation and Treat [CONS] Routine Comment: Reason For Exam: placement 07/22/20 07:44 Consult to Dietitian/Nutrition [CONS] Routine Physician Instructions: Assess nutrtn needs, initiate, modify, manage TF Reason For Exam: Reason for Consult: Write/Manage Tube Feeding Reason for Consult: Write/Manage Tube Feeding 07/24/20 11:36 Consult to Mental Health [CONS] Routine Reason For Exam: catatonia 07/30/20 11:20 Speech Therapy Evaluation and Treat [CONS] Routine Reason For Exam: swallowing evaluation 08/07/20 13:16 Consult to Physician [CONS] Routine Comment: Consulting Provider: ANDREW FRANCOIS Physician Instructions: Reason For Exam: PEG tube placement 08/14/20 11:48 Consult to Physician [CONS] Routine Comment: Consulting Provider: EUGENIO SHEIKH Physician Instructions: Reason For Exam: ams 08/14/20 14:10 Consult to Ethics Committee [CONS] Routine Reason For Exam: futility of care 08/21/20 18:21 Consult to Dietitian/Nutrition [CONS] Routine Physician Instructions: Reason For Exam: Reason for Consult: Evaluate nutritional intake 08/22/20 12:11 PICC Line Insertion [Consult to PICC Line RN] [CONS] Stat Reason For Exam: High alert medication Type Line:: PICC 08/24/20 14:22 Consult to Physician [CONS] Routine Comment: done/ zoë Consulting Provider: ARLETH DE LA TORRE Physician Instructions: Reason For Exam: Seizure 08/25/20 08:28 Consult to Physician [CONS] Routine Comment: Consulting Provider: ARRON TERAN Physician Instructions: Reason For Exam: recurrent c diff colitis 08/27/20 08:00 Consult to Wound/ET Nurse [CONS] Routine Reason For Exam: wound eval:sacral 08/29/20 14:21 Consult to Ethics Committee [CONS] Routine Reason For Exam: No intensvist on case, futility of care 08/30/20 08:24 Consult to Physician [CONS] Routine Comment: Consulting Provider: PAOLA NAILS Physician Instructions: Reason For Exam: seizures, [facility] want daily Neuro eval [facility] Reason for admission: ams Condition: Critical Hospital course: [facility] contacted. still with no ICU bed. [facility] contacted, awaiting call back, they also claim no ICU bed available. Original Note: Assessment and Plan Assessment and plan: 1-year-old female patient with schizoaffective disorder with active hallucinations and confusion presented from [facility] for altered mental status and poor intake on 07/13. She was found to have rhabdomyolysis and electrolyte imbalances. She then developed C. difficile diarrhea and she has completed her regimen of p.o. vancomycin from 07/20-08/03. RN stated patient had to liquid bowel movements today however patient is on vancomycin. Per policy if patient has the decreased BMs she was not a C. difficile sample. At the time of my exam this afternoon the patient was in her usual state with no focal seizure activity noted. However this evening when neurology examined her she was noted to have another seizure and was given Ativan IV. Antiepileptic medications adjusted. Dr. Nails spoke to Dr. Taylor about need to transfer for continuous EEG. He also recommended every hour neurochecks and intubation. Stat ABG ordered. 07/13; patient's CK levels trending down on 1678, continue IV hydration patient is more alert at times, hallucinating, Noncommunicative, severe hypokalemia, replace per protocol 07/14; potassium level significantly improved today to 3.2, replenish per protocol. CK levels trending down 828, continue IV hydration, monitor electrolytes 07/15; patient refused potassium yesterday today potassium levels again 2.7 We will add KCl to IV fluids, and IV K riders, monitor electrolytes. CK level 425. Refusing to eat confused noncommunicative. Possible inpatient psych admission when medically stable 07/16; rhabdomyolysis resolved, mild electrolyte imbalances, if corrected medically stable for inpatient psych placement 07/17: replete K and phosphate. repeat CBc BMP tomorrow. White count needs to be < 10 for inpt psych admission 07/18: cont to have mildly elevated white count, c/o loose stool. will check for C. def - start flagyl and cipro 07/19: White count normal today. change medications to Po. medically stable to go for inpt psych unit. 07/20; positive for C. def. patient not eating properly, refusing meds time to time. Psych now recommended outpt f/u. CM working on placement. Patient remains nonverbal, does not follow any commend and not giving any personal info. 07/21; K 2.0 today, cont to replete, follow BMP, patient remains nonverbal and not cooperative. refuses to eat and meds. cont d51/2NS. if condition doesnot improve will consider TF 07/22: Potassium level persistently remains low, magnesium 1.6 today. Will replete magnesium and potassium. Patient refusing meds and not eating at all per RN report. Totally noncooperative during the encounternot respond to any question. Keeps her eye closing and covering her face with her forearm. Will order for tube feeding and Dobbhoff tube. Continue to follow. We will also add Megace to boost appetite. 07/23: started on TF, follow BMP, change iv fluid to 1/2 NS. patient remains nonverbal 07/24; clinically unchanged, replete K, iv fluid and TF. reconsult psych as patient remains in catatonic phase 07/25: psych recommendation noted, continue tube feeding, continue to replete electrolytes as needed, follow BMP. I strongly believe her severe electrolytes derangement and encephalopathy related to her catatonia, poor oral intake other than any underlying medical conditions. There is no family contact in file, no home address available, patient appeared to be unfunded. production service manager working on placement. 07/26: psych recommendation noted, continue tube feeding, continue to replete electrolytes as needed, follow BMP. I strongly believe her severe electrolytes derangement and encephalopathy related to her catatonia, poor oral intake other than any underlying medical conditions. There is no family contact in file, no home address available, patient appeared to be unfunded. production service manager working on placement. 07/27; continue with tube feeding. There is no family contact in file, no home address available, patient appeared to be unfunded. Case management is following. 07/28; patient still on tube feeding, patient is noncommunicative. I believe her condition is related to her catatonia. Psych is following her. Currently her electrolytes are corrected. There is no family contact in file, no home address available, patient appeared to be unfunded. Case management is following. 07/29 patient is nonverbal, eyes open does not follow simple commands,, still having low-grade fever T-max 100 degrees,, lab results reviewed discussed with RN- still has loose stools, cyanide case hardener notes reviewed, unable to contact zainab elizabeth 07/30 no acute events overnight, diarrhea improved, stop IV fluids, disposition to be decided 07/31: sports development officer presented to the bedside to attempt to fingerprint the patient to identify her. However his machine was not working 08/01:' Per cyanide case hardener note [facility] Department has been contacted to help in identifying the patient. On officer is to report to bedside and was instructed to call the cyanide case hardener upon arrival. 08/02/2020 still has diarrhea 08/03/2020 diarrhea improving. Today is the last day of vancomycin 08/04/2020 patient has no diarrhea 08/05: shift production associate RN reported patient had a seizure overnight, Ativan was ordered however was not administered because according to the dayshift RN he was reported that the patient "did not need the medication because she was not having a seizure at the moment". Patient remained hyponatremic and hypochloremic and after conversing with the nurse patient was not getting her prescribed dose FWF for hyponatremia which was corrected 08/06: Electrolyte imbalance discontinue, patient still catatonic 08/07: Electrolyte imbalances continue, to physician consent for PEG tube obtained and GI consulted 08/08: PEG scheduled for 08/09 08/09: s/p PEG placement with GI, hyperkalemic (potassium 5.2) s/p AK Kayexalate. 08/11; patient is on PEG tube feeding. C. difficile treated and resolved. Patient still in catatonic state. Pending guardianship. 08/12/2020 patient on PEG tube feeding. Guardianship pending. Pending placement. 08/13: no aucte events reported overnight, gaurdenship pending. 08/14/20: quality and futility of care is questionable, patient not following any commands, pupillary reflex noted, neurology and ethics consult placed 08/15: Neurology recommended LP, EEG, CT head and MRI brain with and without contrast which are all pending. 08/16: Physician consult obtained for LP which was completed today. Bilateral lower extremity x-rays noted no metal and a physician consent was obtained for contrast therefore MRI brain pending. EEG still pending. Patient again has hypochloremia and hyponatrema 08/17: status epilepticus noted on EEG, Neurology recommends transfer for continues EEG. 08/19: seizures subsided. No active seizures. Pending placement. 08/20: CXR shows possible PNA, initiated on cefepime and vancomycin 08/21. Discussed with neurologist. Patient needs to be transferred to a tertiary center for continuous EEG monitoring Transfer to [facility] initiated. As per [place], case will be sent to and earliest time for possible transfer will be tomorrow. In the meantime, patient will need intubation and sedation for status as per neurology. Critical care consult placed. Vent orders placed. Anesthesia paged. Patient will be going to the ICU. Transfer order placed. Discussed with anesthesia Dr Hawthorne 6:50 PM and told him why patient needs to be intubated immediately. Apparently, patient transfer orders still in progress and patient still on the floors during his evaluation at bedside. Patient cannot be intubated or while on the floor as per anesthesia MD. Patient is to go to ICU and then intubated. 08/21 transfer to [facility] initiated today as patient still having seizure episodes. -08/23. I discussed with transfer center at [facility] and neurologist Dr. Trivedi requested that latest EEG be reviewed by telemetry neurology. 08/22. Overnight events noted. Patient intubated this AM and started on versed. Discussed with [facility], case is still being reviewed. Called [facility] and was told facility do not have continuous EEG monitoring. She remains on multiple seizure medications. Continue BP medications. Neurology is following closely. 08/23. Patient seen and examined at bedside this morning. Patient has been denied transfer by [facility] as no neuro critical care ICU available. [facility] only accepting patients with acute stroke, gabriel or trauma. Placed a call to [facility] and gave details today. Awaiting callback. Otherwise patient remains sedated. EEG performed yesterday shows significant improvement in status epilepticus. Neurology to review today. 08/24. I discussed with transfer center at [facility] and neurologist Dr. Trivedi requested that latest EEG be reviewed by teleneurology prior to consideration. As patient seizures have subsided, weaning will be on alternative. Neurology notes reviewed-patient to be maintained on sedation for now until it is safe too wean (needs continuous EEG monitoring for this]. I called back transfer center at [facility] was told there are no beds at this time. Patient noted to have Fever overnight. Also has loose watery stools and procalcitonin is elevated. She has been on antibiotics for 4 days now. Repeat chest x-ray shows no new pneumonia. Due to diarrhea, will DC antibiotics for now. Send stool for C. difficile as she had C. difficile earlier during this admission. We will consult ID if C. difficile is positive. Will maintain on current medications for now 08/25. C diff is positive. Started on PO vancomycin. ID consulted. DCed IV antibiotics. Monitor WBC. Will get abdominal CT if no improvement is noted. Call ed [facility] and [facility] but no beds available today. Neurology recommendations appreciated. Will keep sedatives at same dose. 08/26. Patient needs continuous EEG monitoring. Called [facility] and [facility] but still have no beds available. [facility] is not accepting patients except Acute stroke, gabriel and trauma patients. [facility] does not have continuous EEG monitoring. She is still on low dose lorazepam. Discussed with CM to find other hospitals where patient can have the EEG monitoring. In the mean time, patient may need to have titration of sedatives but this may not be possible as per neurology. Neurology not available this weekend to assist. Plan to discuss alternatives with neurology on Thursday. Otherwise, she is still on low dose dopamine and PO vancomycin for recurrent clostridium difficile infection. ID is on board. AM labs not drawn. Labs reordered 08/28: Continues on ventilatory support, awaiting transfer for continouse EEG. 08/29: Will add midodrine and see if we can wean off dobutamin, discussed with [facility] and [facility], no bed available, will reconsult Neurology for daily Neurology eval. Discussed with Respiratory to see if we can wean off ventilator 08/30: Reconsulting Neurology, discussed with Nursings staff to wean off dobutamin since midodrine has been started and MAP this am is 70. Also wean Ativan. Awaiting Ethics committee. Await bed availability for transfer to more advanced facility as this patient will benefit from a more specalized care. 08/31: Patient remains unresponsive on Ativan drip being used due to continuous seizures. Neurology did evaluate the patient believes that encephalopathy secondary to status epilepticus. We still do not have an accepting facility as of facility around as on diversion. Per neurology and another EEG is to be done today. Also Dilantin trough level to be obtained this morning. Goal is to keep it between 10 and 20. Last EEG that was done according to reading from neurology states that they still see left anterior temporal region epileptiform type activities with burst suppression pattern delta slowing. They did give additional dose of fosphenytoin 500 mg and continue current dose of Dilantin 200 mg 3 times a day. The recommendation is still for higher level of care with continuous EEG to see if patient develops positive suppression pattern for 24 hours and then gradually reduce the dose of Ativan or Versed or propofol. Patient currently is not on propofol or Versed just Ativan. They will feel that reducing the Ativan dose while monitoring the EEG will help see if this seizures are suppressed. Patient remains in critical care ICU at this point. Continues to have seizures despite being on Vimpat Keppra Depakote Dilantin and Ativan drip which will begin to gradually decrease per recommendation from the receiving facility to see if there is any changes. 09/01: Persistent seizures, Unable to stop Ativan due to persistent hospitals. Antibiotics per ID, still awaiting Bed at higher level of care as requested. PATIENT REMAINS ON FULL VENTILATORY SUPPORT. Discussed WITH [facility] and patient was accept for transfer and will be transfered back once work up is complete. Prognosis poor, due to clinical condition. Again no family available (1) Acute metabolic encephalopathy secondary to status epilepticus Current Visit: Yes Status: Acute Qualifiers: Altered mental status type: unspecified Qualified Code(s): R41.82 - Altered mental status, unspecified Plan to address problem: Possible continuous seizure. May be exacerbated by underlying infections in the past and/or schizoaffective disorder. (2) Anemia: Continue supportive care (3) Status epilepticus Current Visit: Yes Status: Acute Plan to address problem: Plan to address problem: RN reported seizure activity on on 08/05; Ativan was ordered however was not administered because according to the dayshift RN he was reported that the patient "did not need the medication because she was not having a seizure at the moment". After reviewing nursing notes it is noted that she had reported seizure activity by RN on 08/12 and was given Ativan. Hospitalist was informed No seizure activity reported since Neurology consulted EEG no no status epilepticus Pt is on depakote 1000 mg bid; Keppra 1500 mg bid; vimpat 200 mg iv q12; and now initiated on Fosphentoin (load and maintenance) despite drug-drug interaction on 08/21 per neurology Per neurology: Patient will require transfer to a facility w/ cEEG monitoring for higher level of care as EEG here is intermittently available and intermittently read at present; increase depakote to 1000 mg bid (bolus of 500 mg via peg); increase Keppra to 1500 mg bid; initiate vimpat 200 mg iv q12; s/p Ativan 1 mg IV x 1 dose given; pending MRI Brain w/ wo contrast. Recommend q1 hour neurochecks. 08/19 it was noted that patient's seizure activity subsided therefore was not transferred to tertiary care 08/21 noted to have a focal seizure when neurology was examining the patient, given Ativan x1 and started on a third antiepileptic. Transfer to [facility] reinitiated today. Discussed [facility] neurology - patient will need intubation and sedation. Discussed with anesthesia and geothermal powerplant mechanic helper. Transfer order placed. Vent bundle ordered. -08/22. Patient intubated this AM. Had another episode of seizure early AM as per RN prior to intubation. Neurology currently following. Patient is on Depakote, Keppra, fosphenytoin and Vimpat. -08/23. EEG shows improvement after sedation and intubation. Teleneurology following -08/24 - 08/25. No seizures noted. Still on lorazepam drip. Will order EEG repeat. -08/26. No beds at [facility], [facility]. [facility] has no continuous EEG monitor. [facility] only acceptinig stroke patients. Discussed with CM to see if he can find hospitals that have EEG capability here in [place]. 08/26/2020 received call from [facility] about reconnecting with transfer service from [facility] [phone]. We will follow-up in a.m. to see if they have a bed for continuous EEG capabilities. Otherwise patient remains unresponsive nonverbal at baseline. Intubated. (4) Schizoaffective disorder Current Visit: Yes Status: Chronic Plan to address problem: Haldol as needed antipsychotic medications. (5) C. difficile diarrhea Current Visit: Yes Status: Resolved Plan to address problem: Continue vancomycin for an additional 4 times a day for total of 10 days. No loose stool today. (6) Rhabdomyolysis Current Visit: Yes Status: Resolved Qualifiers: Rhabdomyolysis type: non-traumatic Qualified Code(s): M62.82 - Rhabdomyolysis Plan to address problem: Resolving with aggressive IV fluid hydration before. (7) Hyponatremia Current Visit: Yes Status: Resolved Plan to address problem: Admit sodium 142 07/31 134, slight hyponatremia at this time no intervention needed, 08/01 Na 136 however she has remained hyponatremic Hydration with free water flush; 50ml q6 hours while hyponatremic-> informed RN on 08/06 08/07 sodium 136 08/09 sodium 135 Trend BMP 08/10 sodium 141 08/15 sodium 134; informed RN FWF are ordered to be 50 mL every 6 while hyponatremic 08/16 sodium 131, nutrition notes reviewed and FWF seems to be changed 100 mL q4 hours 08/17 sodium 134 08/20 hyponatremia resolved 08/27/2020 remains stable. (8) Metabolic encephalopathy Current Visit: Yes Status: Acute Plan to address problem: kim to address problem: Multifactorial , schizoaffective disorder and withdrawal seizures 07/11 CT head Normal nonenhanced CT scan of the brain Patient came from [facility], psych evaluation noted Psych recommends outpt f/u 08/14 neurology consult: Recommends obtaining EEG, LP, CTA head, MRI brain with and without contrast 08/15 CT head shows no acute abnormalities and no changes since 07/11/202008/16: LP under fluoroscopy completed. CSF analysis shows no evidence of encephalitis 08/16 MRI brain with/without contrast pending: Shows no acute abnormalities Supportive care -Now on multiple antiseizure medications. Intubated and sedated. Plan for transfer to [address] [place] [address] initiated (9) DVT prophylaxis Current Visit: Yes Status: Acute (10) Discharge planning issues Current Visit: Yes Status: Acute Plan to address problem: Patient's identity is not confirmed [facility] Department has been contacted to aid in identification however unsuccessful [facility] Department have been contacted Inpatient records requested from [facility] again on 08/02 Risk-management made aware of patient again on 08/02 Patient identification confirmed with [facility] Department Attempted to contact children, CM has an email address and an email was sent over the weekend however there is been no reply 08/07: 2 physician consent for PEG tube obtained and GI consulted for PEG tube placement 08/09: PEG tube placed, resume tube feeds within 4 hours [facility] in the process of assuming guardianship over the patient for placement 08/14 ethics consulted 08/17 Dr. Nails requested a transfer to another facility for continuous EEG as the patient Disposition: DC/[place]-70 ANOTHER TYPE HLTHCARE Time spent for discharge: 35 MINS Core Measure Documentation - Palliative Care Palliative Care/ Comfort Measures: Not Applicable - Core Measures Any of the following diagnoses?: none Exam - Physical Exam Narrative exam: General appearance: Present: no acute distress, cachectic, other, orally intubated - EENT ENT: clear oral mucosa, other (Unresponsive) Ears: bilateral: normal - Neck Neck: supple, normal ROM - Respiratory Respiratory effort: normal Respiratory: bilateral: CTA, diminished, rales, rhonchi - Breasts Breasts: normal - Cardiovascular Rhythm: regular Heart Sounds: Present: S1 & S2. Absent: gallop, rub Extremities: pulses intact, No edema, normal color, Full ROM - Gastrointestinal General gastrointestinal: Present: soft, non-tender, non-distended, hypoactive bowel sounds, other (Scaphoid) - Genitourinary Female genitourinary: normal - Integumentary Integumentary: clear, warm, dry - Musculoskeletal Musculoskeletal: other (Debility) - Neurologic Neurologic: unresponsive - Psychiatric Psychiatric: other (Unresponsive) - Constitutional Vitals: Temp Pulse Resp BP Pulse Ox 100.3 F H 98 H 20 119/66 98 09/01/20 16:00 09/01/20 18:00 09/01/20 18:00 09/01/20 18:00 09/01/20 18:00 Plan Follow up with: MARIA GUADALUPE DARLING MD [Primary Care Provider] - 7 Days
== END 2020-09-01 19:38 | disposition short-term general hospital (02) | DRG 70 ==
LOC: ED 20:29 → 3A 07-12 00:09 → 3B-SURG 07-12 00:52 → OBSVTOIN 07-13 12:39 → 3A 07-18 13:26 → CC1 08-21 21:06
PROVIDERS: ADMIT Internal Medicine; ATTEND Internal Medicine
PROC: 0DH63UZ Insertion of Feeding Device into Stomach, Percutaneous Approach (ICD-10-PCS; 2020-08-09)
PROC: 009U3ZZ Drainage of Spinal Canal, Percutaneous Approach (ICD-10-PCS; 2020-08-16)
PROC: B01B1ZZ Fluoroscopy of Spinal Cord using Low Osmolar Contrast (ICD-10-PCS; 2020-08-16)
PROC: 4A033R1 Measurement of Arterial Saturation, Peripheral, Percutaneous Approach (ICD-10-PCS; 2020-08-19)
PROC: 0BH17EZ Insertion of Endotracheal Airway into Trachea, Via Natural or Artificial Opening (ICD-10-PCS; principal; 2020-08-22)
PROC: 5A1955Z Respiratory Ventilation, Greater than 96 Consecutive Hours (ICD-10-PCS; 2020-08-22)
PROC: 02HV33Z Insertion of Infusion Device into Superior Vena Cava, Percutaneous Approach (ICD-10-PCS; 2020-08-22)
DX: G93.41 Metabolic encephalopathy (principal); R65.21 Severe sepsis with septic shock; J96.01 Acute respiratory failure with hypoxia; J18.9 Pneumonia, unspecified organism; A41.9 Sepsis, unspecified organism; G04.90 Encephalitis and encephalomyelitis, unspecified; M62.82 Rhabdomyolysis; A04.71 Enterocolitis due to Clostridium difficile, recurrent; E87.1 Hypo-osmolality and hyponatremia; E87.2 Acidosis; E46 Unspecified protein-calorie malnutrition; K76.6 Portal hypertension; R41.89 Other symptoms and signs involving cognitive functions and awareness; K31.89 Other diseases of stomach and duodenum; F25.9 Schizoaffective disorder, unspecified; E87.6 Hypokalemia; E83.42 Hypomagnesemia; E87.8 Other disorders of electrolyte and fluid balance, not elsewhere classified; E86.0 Dehydration; Z20.828 Contact with and (suspected) exposure to other viral communicable diseases; Z86.73 Personal history of transient ischemic attack (TIA), and cerebral infarction without residual deficits; Z68.28 Body mass index [BMI] 28.0-28.9, adult
CPT/HCPCS: 31500; 36415; 36600; 62270; 70450; 70553; 71045; 74018; 74177; 77003; 80048; 80053; 80076; 80164; 80185; 80202; 80307; 80320; 81001; 82140; 82533; 82550; 82553; 82803; 82805; 82947; 82962; 83735; 84100; 84132; 84145; 84160; 84484; 85007; 85025; 85027; 85049; 85610; 85730; 86592; 87040; 87070; 87086; 87116; 87205; 87493; 87498; 87799; 89051; 93005; 94002; 94003; 94760; 95819; 96365; 96372; G0378; A9577; C9113; C9254; G0480; J0690; J0692; J1165; J1265; J1630; J1644; J1815; J1940; J1953; J1956; J2060; J2704; J3370; J3475; J3480; J7030; J7040; J7042; J7050; Q2009; Q9967; U0003